=== PATIENT | female | born 1950 | race Caucasian/White ===

== ENCOUNTER 2018-07-02 11:25 | Observation (INO) ==
[~2018-07-02 11:25] MED LIST: CEFAZOLIN 1000MG 1,000 MG/7.5 ML SYR IV SCH; LR 15ML/HR IV SCH
[2018-07-02] MEDS ORDERED: CEFAZOLIN 3000MG 65 ML IV SCH (12:00)
[2018-07-02 12:18] LABS: INR 1.6 (0.9-1.1); Prothrombin Time 15.9 Seconds (9.0-12.0)
--- NOTE | 2018-07-02 13:12 | History & Physical Bridge Note ---
Date of Service July 02, 2018 History & Physical Bridge Note I have examined the patient, reviewed the History & Physical and in the interval since the performance of the History & Physical I have noted the following changes of clinical significance: no changes noted
--- NOTE | 2018-07-02 13:12 | Pre Anesthesia Assessment ---
Date of Service July 02, 2018 Pre Sedation Assessment Vital Signs Temp Pulse Resp BP Pulse Ox 07/02/18 11:59 36.6 C 59 L 20 175/76 H 94 07/02/18 11:45 36.6 C 59 L 20 175/76 H 94 Cardiovascular + bradycardic Respiratory normal respiratory effort, lungs clear to auscultation Pre-Sedation Airway Assessment Smoking Status: Never smoker Hx Sleep Apnea: No Hx Difficult Intubation: No Short, Thick Neck: No Thyromental Distance: > or= 3.5 Finger Breadths Oral Cavity: + Dentures Mallampati Class: III ASA: ASA3 NPO Status Date of Last Intake of Fluids: 07/01/18 Date of Last Intake of Solid Food: 07/01/18 Procedure Planning Contraindications for Sedation: none Current Medications Reviewed: Yes Notes The planned sedation has been discussed with the patient. Informed Consent was obtained. I have identified the patient, determined the appropriateness of sedation and have assessed the patient immediately prior to the procedure. All medicine(s) and interventions are by my order.
[2018-07-02] MEDS ORDERED: MIDAZOLAM HCL 5 MG/ML 1 ML VIAL ONE (13:48)
[2018-07-02] MEDS ORDERED: fentaNYL citrate 100 MCG/2 ML VIAL ONE ×2 (13:48→15:09)
[2018-07-02] MEDS ORDERED: BUPIVACAINE 0.25% 30 ML VIAL ONE (14:15)
[2018-07-02] MEDS ORDERED: LIDOCAINE HCL 1% 20 ML VIAL ONE (14:15)
[2018-07-02] MEDS ORDERED: MIDAZOLAM HCL 1 MG/ML 2ML VIAL ONE (15:18)
--- NOTE | 2018-07-02 15:42 | Post Anesthesia Assessment ---
Date of Service July 02, 2018 Post Sedation Assessment Vital Signs Temp Pulse Resp BP Pulse Ox 07/02/18 11:59 36.6 C 59 L 20 175/76 H 94 07/02/18 11:45 36.6 C 59 L 20 175/76 H 94 Recovery Score Activity: Moves 4 extremities Respiration: Deep Breath/Cough Circulation: +/-20% PreAnes Value Consciousness: Fully Awake Oxygen Saturation: > 92% On Room Air Discharge Sedation Level of Care: Fast Track Phase II Post Sedation Plan On clinical assessment, the patient appears to have tolerated the sedation without complications. Patient is recovering as anticipated. Patient will continue to be monitored by nursing and may be discharged when sedation discharge criteria are met per below protocol. Upon Completions of procedure and additional 15 minutes continue every 5 minute vital signs and the P.A.R. score; then discharge to a Phase I or Fast Track to Phase II per the following guidelines: * Discharge Patient to appropriate Phase II area if PAR is 8 or greater or return to pre- procedure baseline. The post - procedure orders will be as directed. * If PAR score is less than 8 or not return to pre-procedure baseline then patient will follow Phase I monitoring till PAR is reached for Phase II. The Phase I may be done in procedure room or may call to secure a Phase I area. * If naloxone or flumazenil are used for reversal, hold in Phase I for continued monitoring from when last reversal dose was given for a minimum of 60 minutes or longer pending the nurse and/or physician discretion of patient condition before discharge to Phase II. Please call the Sedation Physician to re-evaluate and complete post-note for discharge to Phase II area. Do NOT discharge from procedure sedation or Phase 1 until post- sedation evaluation note is complete by procedure /sedation MD Sedation Discharge Instructions to be given to the patient at discharge to home.
--- NOTE | 2018-07-02 15:43 | Operative Report ---
Post Operative Report Pre & Post Diagnosis tbs Operation Date: 07/02/18 13:00 <No data on this case meets the specified criteria> Procedure Operation Date: 07/02/18 13:00 Actual Procedures p Pacer with A/V Leads (Dual) - Chloe Frias DO Surgeon Chloe Frias, DO Pad Hand none Estimated Blood Loss 25 Findings Consistent with Post-Op Diagnosis Specimens none Description of Procedure see official report I attest to the content of the Intraoperative Record and any orders documented therein. Any exceptions are noted below.
[2018-07-02] MEDS ORDERED: ACETAMINOPHEN 325 MG TAB PO PRN (15:47)
[2018-07-02] MEDS ORDERED: FLUTICASONE PROPIONATE NA SPR 16 GM BTL PRN (15:48)
[2018-07-02] MEDS ORDERED: LORazepam 0.5 MG TAB SL PRN (15:48)
[2018-07-02] MEDS ORDERED: WARFARIN SOD 5 MG TAB PO SCH (16:00)
[2018-07-02] MEDS: OXYCODONE/ACETAMINOPHEN 5mg/325mg TAB PO PRN (17:22)
[2018-07-02] MEDS: DOFETILIDE 125 MCG CAPSULE PO SCH (20:52)
[2018-07-03] MEDS: OXYCODONE/ACETAMINOPHEN 5mg/325mg TAB PO PRN ×2 (02:32→11:58)
[2018-07-03] MEDS: DOFETILIDE 125 MCG CAPSULE PO SCH (08:48)
[2018-07-03] MEDS ORDERED: AMLODIPINE BESYLATE 5 MG TAB PO SCH (09:00)
[2018-07-03] MEDS ORDERED: LOSARTAN POTASSIUM 50 MG TAB PO SCH (09:00)
[2018-07-03] MEDS ORDERED: ESCITALOPRAM OXALATE 10 MG TAB PO SCH (09:00)
[2018-07-03] MEDS ORDERED: CHOLECALCIFEROL 1,000 UNITS TAB PO SCH (09:00)
[2018-07-03] MEDS ORDERED: ASPIRIN 81 MG ECTAB PO SCH (09:00)
[2018-07-03] MEDS ORDERED: LOVASTATIN 20 MG TAB PO SCH (09:00)
[2018-07-03] MEDS ORDERED: PANTOprazole 40 MG TAB PO SCH (09:00)
[2018-07-03] MEDS ORDERED: CYANOCOBALAMIN 500 MCG TABLET (VITAMIN B-12) PO SCH (09:00)
--- NOTE | 2018-07-03 09:11 | XRay Report ---
XR chest 2V routine HISTORY: Left-sided pacemaker. post implant COMPARISON: Chest 06/24/2018. FINDINGS: Interval placement left-sided dual-chamber pacemaker. The leads appear intact. No pneumotho rax. No pleural effusions. The heart is normal in size. The lungs are clear. IMPRESSION: Status post left-sided pacemaker. No pneumothorax. Electronically signed by: Reynaldo Allison M.D. 07/03/2018 9:10 AM
--- NOTE | 2018-07-03 10:07 | Cardiology Progress Note ---
Date of Service July 03, 2018 Assessment & Plan (1) Tachy-jess syndrome: Patient status post dual-chamber pacemaker insertion with normal pacemaker function on check this morning Chest x-ray no pneumothorax Patient tolerated procedure well Anticipate discharge this morning with scheduled follow-up arranged Subjective Patient seen and examined, chart medications telemetry reviewed. Pacemaker functioning appropriately. No complaints at surgical incision. No fevers or chills. Ambulatory in room and hallway Physical Exam Constitutional: WD/WN, vitals as above Neck: trachea midline, no thyromegaly Respiratory: normal respiratory effort, lungs clear to auscultation Cardiovascular: Rate/Rhythm: regular rate Extremities: no edema Chest (Breasts): Chest: + pacemaker (Site with minimal ecchymosis no hematoma incision intact) Gastrointestinal (Abdomen): normal bowel sounds, soft, nontender, no hepatosplenomegaly Results & Data Vital Signs (Past 12 Hours) Vital Signs Temp Pulse Pulse Resp BP Pulse Ox 07/03/18 07:56 36.5 C 64 18 128/77 93 07/03/18 04:16 36.7 C 61 20 110/64 96 07/03/18 00:36 36.3 C L 60 16 118/73 95 07/02/18 22:21 62 17 94 Laboratory Results Laboratory Results - last 24 hr 07/02/18 07/02/18 11:42 11:45 PT 15.9 H INR 1.6 H Hepatitis C Ab Screen Neg
[2018-07-04] MEDS ORDERED: WARFARIN SOD 2.5 MG TAB PO SCH (16:00)
--- NOTE | 2018-07-13 21:58 | Operative Report ---
DATE OF OPERATION: 07/02/2018 PREOPERATIVE DIAGNOSIS: Tachybrady syndrome. POSTOPERATIVE DIAGNOSIS: Tachybrady syndrome. PROCEDURE: Dual chamber rate response to permanent pacemaker under fluoroscopic guidance. SURGEON: Chloe Frias DO. PIG BREEDER: None. ANESTHESIA: Monitored conscious sedation administered under my supervision by Jeaneth Cruz. Start time 14:13, end time 15:37. A total of 6 mg of Versed and 150 mcg of fentanyl. INTRAVENOUS FLUIDS: 94 mL. ANTIBIOTICS: 3 grams of Ancef. BLOOD LOSS: Less than 20 mL. URINE OUTPUT: Not applicable. SPECIMENS: None. FINDINGS: See below. DRAINS: None. COMPLICATIONS: None. CONDITION: Stable. INDICATIONS: This is a 67-year-old female with a past medical history for stress-induced cardiomyopathy actually reverse Takotsubo in 10/2017 after tooth extraction for repeat echo in 02/2018. The EF had normalized, paroxysmal atrial fibrillation diagnosed in 12/2014, on anticoagulation and Tikosyn. Acute PE on Coumadin, hypertension, hyperlipidemia, statin intolerance, mild nonobstructive coronary disease by catheterization in 02/2014, chronic diastolic heart failure, [place] Heart Association class II, depression, obesity, obstructive sleep apnea on CPAP, gastroesophageal reflux disease, migraines and anxiety. Due to the symptomatic tachybrady syndrome, she was recommended a dual chamber pacemaker. CONSENT: Consent was obtained prior to the patient going into Electrophysiology lab. The patient was informed of the risks, benefits, and alternatives of the procedure. Risks include but not limited to sudden cardiac , cardiac arrhythmia, cerebrovascular accident, myocardial infarction, injury to the blood vessels, chamber of the heart, lung, bleeding, and infection. The patient understood these risks and agreed to the procedure as planned. Informed consent was obtained. DESCRIPTION OF THE PROCEDURE: The patient was brought into Electrophysiology lab in fasting state. She was connected to continuous cardiac cath technician. A timeout was performed to ensure patient's identity and procedure correctly. The patient was prepped and draped over the left infraclavicular space in normal surgical standard fashion. Monitored conscious sedation was given throughout the procedure for patient's comfort level. [place] precautions were maintained throughout the procedure. A 10 mL of 1% lidocaine and bupivacaine were given in the left deltopectoral groove. Incision was made in the left deltopectoral groove. Blunt dissection performed down to identify cephalic vein. Cephalic vein was identified and isolated using 0 silk ties. The vein was nicked with 11 blade and a guidewire was inserted without any resistance. An 8-Irish sheath was inserted over the guidewire without any resistance. Then, the dilator was removed and a second guidewire was inserted down through the sheath to allow for retained venous access. The sheath was removed, flushed, dilator, reinserted over it and then it was reinserted along the guidewire. Guidewire and dilator removed and the right ventricular lead was advanced down into the right ventricle and positioned into right ventricular apex under fluoroscopic guidance. I did have to reposition it a few times due to getting better, impedance and sensing and thresholds. Ultimately, we had good impedance and thresholds and there was no diaphragmatic stimulation with high output pacing. So the 8-Irish sheath was peeled away and lead was fixated to pectoralis muscle using 0 silk suture. A second 8-Irish sheath was inserted over the retained guidewire without any resistance. The guidewire and dilator removed. The right atrial lead was then advanced into right atrium and positioned into right atrial appendage under fluoroscopic guidance. There was adequate pacing and sensing thresholds and no diaphragmatic stimulation with high output pacing. The 8-Irish sheath was peeled away and lead was fixated to pectoralis muscle using 0 silk suture. Due to backbleeding, a pursestring using a 2-[address] needle was placed around the vein to stop that and using blunt dissection over the pectoralis muscle within the pectoralis fascia, a pacemaker pocket was created then the pocket was flushed with copious amounts of bacitracin saline wash and inspected for hemostasis. The pulse generator was then attached to the leads, making sure that the pins were in appropriate position, passed set screw and set screws were tightened. The pulse generator was then placed in the pocket, making sure that the leads were lying flat beneath the device. A stay stitch using 0 silk suture was used to secure the device to the pectoralis muscle. An Flako stat was placed in the pocket as patient is going back on anticoagulation with Coumadin. The incision was then closed in a 3-layer fashion with 2-0 Vicryl interrupted suture followed by 3-0 Vicryl interrupted suture followed by a 4-0 Monocryl running stitch and Dermabond was applied, followed by a pressure dressing. EQUIPMENT: 1. Pulse generator is a Medtronic Ebony XT DR VILLEGAS KimberleeToney [id number], serial numver [id number]. 2. Right atrial lead Medtronic 5076-52 cm, serial number [id number]. 3. Right ventricular lead, Medtronic 5076-58 cm, serial number [id number]. INTRAOPERATIVE TESTIN. Right atrial lead: P waves 2.1 millivolts, impedance 594 ohms, threshold 1.2 volts at 1.3 milliamps. 2. Right ventricular lead: R-wave 6.9 millivolts, impedance 868 ohms, threshold 0.3 volts at 0.3 milliamps. FINAL MEASUREMENTS THROUGH THE DEVICE: 1. Right atrial lead: P waves 2 millivolts, impedance 475 ohms, threshold 0.75 volts at 0.4 milliseconds. 2. Right ventricular lead: R-wave 9.9 millivolts, impedance 703 ohms, threshold 0.5 volts at 0.4 milliseconds. FINAL PARAMETERS: MVP 60/130. Right atrial amplitude 3.5 volts, pulse width 0.4 milliseconds, sensitivity 0.3 millivolts. Right ventricular amplitude 3.5 volts, pulse width 0.4 milliseconds, sensitivity 0.9 millivolts. IMPRESSION: Successful implantation of a dual chamber rate responsive to permanent pacemaker under fluoroscopic guidance secondary to tachybrady syndrome. PLAN: Monitor patient overnight, 12-lead ECG, chest x-ray. She can continue her home medications. She is not allowed to lift the left elbow over left shoulder for 1 month. She cannot lift more than 10 pounds with the left arm for 2 weeks. She can remove the pressure dressing the following day and she should follow up in our [facility] on 07/09/2018 for device and wound check. I attest to the content of the Intraoperative Record and any orders documented therein. Any exception s are noted below.
--- NOTE | 2018-07-16 08:16 | Discharge Summary ---
Date of Service 07/02/2018-07/03/2108 Admission HPI pt with near sycnope admitted for elective pacemaker Admission Exam Per Admitting Provider aaox3, NAD NC/AT, EOMI Supple No JVD bradycardia S1/S2, No murmur CTA b/l no w/r/r soft nt/nd no LE edema b/l skin intact no focal deficits Principal Diagnosis Principal Diagnosis TBS s/p dual chamber ppm Discharge Exam aaox3, NAD NC/AT, EOMI Supple No JVD Nrl S1/S2, No murmur CTA b/l no w/r/r soft nt/nd no LE edema b/l skin intact no focal deficits left pectoral incision intact, no hematoma mild ecchymosis ENMT Mallampati Class: III Respiratory normal respiratory effort, lungs clear to auscultation Discharge Data Allergies Allergy/AdvReac Type Severity Reaction Status Date / Time latex Allergy Intermediate RASH Verified 07/02/18 11:43 lisinopril Allergy Intermediate Cough Verified 07/02/18 11:43 celecoxib Allergy Mild Hives Verified 07/02/18 11:43 Procedures Performed PPM Interrogation 07/03/2018: normal function ECG: AP Operation Date: 07/02/18 13:00 Actual Procedures p Pacer with A/V Leads (Dual) - Chloe Frias DO Ordered Studies CXR: No PTX leads in position 07/02/18 07:00 EP Lab Images for PACS ONCE Hospital Course (1) Tachy-stevie syndrome: Patient status post dual-chamber pacemaker insertion with normal pacemaker function on check this morning Chest x-ray no pneumothorax Patient tolerated procedure well Anticipate discharge this morning with scheduled follow-up arranged Total Time Total Time Spent Total Time Spent (In Minutes): 30 Total Time Includes: Examination of the Patient, Discharge Planning, Medication Reconciliation and Other Discharge Plan Discharge Items Patient Disposition: Home - Self-Care Reason For Visit: Trachy Stevie Syndrome Discharge Diagnosis: tbs s/p pacemaker Condition: Good Discharge Goals: Improve disease control Activity: As commented below Activity Comment: do not lift the left elbow over the left shoulder for 1 month Lifting: No more than 10 pounds Lifting Comment: do not lift more than 10 pounds with the left arm for 2 weeks Bathing: Keep incision dry Bathing Comment: shower Tuesday 07/04 let water run over the incision do not scrub it Sexual Activity: After two weeks Driving/Machine Use: Resume 1 day after discharge Non-emergency contact: Operater Call non-emergency contact if: you have any medication questions Follow-up/Referrals: Irish Richard DO [Primary Care Provider] - Diet: Heart Healthy Addtl Provider Instructions: Device and wound check next sunday 07/09 if you notice any swelling call my office immediately you can remove the pressure dressing sat 07/03 Prescriptions: Continued aspirin [Aspirin Low Dose] 81 mg Tablet,Delayed Release (Dr/Ec) 81 mg PO DAILY RF: 0 acetaminophen 325 mg Tablet 2 tab PO Q6H PRN (Reason: Pain) RF: 0 cholecalciferol (vitamin D3) 1,000 unit Capsule 1,000 units PO DAILY RF: 0 dofetilide 250 mcg Capsule 250 mcg PO Q12H RF: 0 cyanocobalamin (vitamin B-12) 1,000 mcg Tablet, Sublingual 500 mcg SUBLINGUAL DAILY RF: 0 lovastatin 20 mg Tablet 20 mg PO DAILY RF: 0 losartan 100 mg Tablet 100 mg PO DAILY RF: 0 fluticasone propionate 50 mcg/actuation [place],Suspension 2 spray INTRANASAL DAILY PRN (Reason: Congestion) RF: 0 warfarin 5 mg Tablet 5 mg PO [id number] RF: 0 warfarin 5 mg Tablet See Rx Instructions .ROUTE .COMPLEX RF: 0 omeprazole 20 mg Capsule,Delayed Release(Dr/Ec) 20 mg PO DAILY RF: 0 amlodipine 2.5 mg Tablet 2.5 mg PO DAILY RF: 0 escitalopram oxalate [Lexapro] 5 mg Tablet 5 mg PO DAILY RF: 0 lorazepam 0.5 mg Tablet 0.5 mg SUBLINGUAL BID PRN (Reason: Anxiety) RF: 0 Stand-Alone Forms: [facility] Discharge Orders: Discharge Order (Routine); Ordered 07/03/18 Ordered By: Jermain Lange Admission Data Admit Date/Time: 07/02/18 15:07 Attending Provider: Chloe Frias Admit Provider: Chloe Frias Primary Care Provider: Irish Richard Service: Telemetry Other Interventions: Discharge Summary Assessment (RN) Last Done: 07/03/18 10:43 DC Date/Time DO NOT enter until pt leaves facility: 07/03/18 12:25
== END 2018-07-03 12:25 | disposition home or self-care (01) ==
LOC: 2S 11:25 → ASU 11:25

== ENCOUNTER 2021-05-19 19:31 | Inpatient (IN) ==
[2021-05-19] MEDS ORDERED: ALBUT/IPRATROP 3MG/0.5MG NEB 3 ML VIAL NEB STA (20:05)
[2021-05-19 20:51] LABS: Basophils # (auto) 0.01 K/uL (0-0.2); Basophils % (auto) 0.1 %; Eosinophils # (auto) 0.02 K/uL (0-0.5); Eosinophils % (auto) 0.3 %; Hematocrit (blood only) 35.6 % (37-47); Hemoglobin 11.8 g/dL (12.0-16.0); Immature Granulocytes # (auto) 0.02 K/uL (0.00-0.02); Immature Granulocytes % (auto) 0.3 %; Lymphocytes # (auto) 1.61 K/uL (1.2-3.4); Lymphocytes % (auto) 21.8 %; Mean Corpuscular Hemoglobin 29.4 pg (25-34); Mean Corpuscular Hgb Conc 33.1 g/dL (32-36); Mean Corpuscular Volume 88.6 fL (80-100); Mean Platelet Volume 9.2 fL (7.4-10.4); Monocytes # (auto) 0.55 K/uL (0.11-0.59); Monocytes % (auto) 7.4 %; Neutrophils # (auto) 5.19 K/uL (1.4-6.5); Neutrophils % (auto) 70.1 %; Platelet Count 259 K/uL (130-400); RDW Coefficient of Variation 15.3 % (11.5-14.5); RDW Standard Deviation 49.9 fL (36.4-46.3); Red Blood Count 4.02 M/uL (4.2-5.4)
[2021-05-19] MEDS ORDERED: ACETAMINOPHEN 500 MG TAB PO STA (20:52)
[2021-05-19] MEDS ORDERED: ONDANSETRON INJ 2 MG/ML 2 ML VIAL IV STA (20:52)
[2021-05-19 21:13] LABS: Alanine Aminotransferase 11 U/L (7-52); Albumin Globulin Ratio 1.1 (0.9-2); Albumin Level 3.6 gm/dl (3.4-5.0); Alkaline Phosphatase 120 U/L (34-104); Anion Gap 11 (3-11); Aspartate Aminotransferase 13 U/L (13-39); BUN Creatinine Ratio 10.4 (10-20); Bilirubin,Total 0.6 mg/dl (0.2-1.0); Blood Urea Nitrogen 8 mg/dl (6-23); Calcium 8.3 mg/dl (8.5-10.1); Carbon Dioxide 26 mmol/L (21-32); Chloride 104 mmol/L (98-107); Est GFR (African American) 90.7 ml/min; Est GFR (Non-African American) 78.2 ml/min; Globulin 3.4 gm/dl (2.5-4.0); Glucose 102 mg/dl (70-99(Fasting)); Potassium 3.1 mmol/L (3.5-5.1); Sodium 141 mmol/L (136-145)
[2021-05-19 21:14] LABS: Troponin I < 0.03 ng/ml (0-0.04)
[2021-05-19 21:21] LABS: Adenovirus PCR Not Detected (NotDetected); Bordetella parapertussis PCR Not Detected (NotDetected); Bordetella pertussis PCR Not Detected (NotDetected); Chlamydia pneumoniae PCR Not Detected (NotDetected); Coronavirus 229E PCR Not Detected (NotDetected); Coronavirus CoV-2 (COVID19)PCR Not Detected (NotDetected); Coronavirus HKU1 PCR Not Detected (NotDetected); Coronavirus NL63 PCR Not Detected (NotDetected); Coronavirus OC43PCR Not Detected (NotDetected); Human Metapneumovirus PCR Not Detected (NotDetected); Influenza A PCR Not Detected (NotDetected); Influenza B PCR Not Detected (NotDetected); Mycoplasma pneumoniae PCR Not Detected (NotDetected); Parainfluenza Virus 1 PCR Not Detected (NotDetected); Parainfluenza Virus 2 PCR Not Detected (NotDetected); Parainfluenza Virus 3 PCR Not Detected (NotDetected); Parainfluenza Virus 4 PCR Not Detected (NotDetected); Respiratory Syncytial VirusPCR Not Detected (NotDetected); Rhinovirus/Enterovirus PCR Not Detected (NotDetected)
[2021-05-19] MEDS ORDERED: DOXYCYCLINE HYCLATE 100 MG in DEXTROSE 5% 100 ML IV STA (22:17)
[2021-05-19] MEDS ORDERED: cefTRIAXone SODIUM 2,000 MG/70 ML BAG IV STA (22:17)
[2021-05-19] MEDS ORDERED: POTASSIUM CHLORIDE CRTAB 20 MEQ TABCR PO STA (22:38)
--- NOTE | 2021-05-19 23:10 | Emergency Department Note ---
Impression & Plan Flu-like symptoms, Community acquired pneumonia, Nausea vomiting and diarrhea, Elevated brain natriuretic peptide (BNP) level, Acute hypokalemia, Otitis media ED Provider Note INFORMANT: Patient ED PROVIDER(S): Jeff Martinez MD CHIEF COMPLAINT: Flulike symptoms PLAN: Disposition: Admitted Condition: Good Outpatient prescription management: none Referral: None MEDICAL DECISION MAKING: Patient presented because of flulike symptoms. Covid testing by [facility] was done and was negative. The patient's chest x-ray read some concerns about some mild vascular congestion and a right-sided infiltrate. This was where she was wheezing. She does have a significant cough. She has bilateral otitis media. Her CBC and chemistry panel were otherwise unremarkable. Troponin was negative. The patient was given IV Rocephin and doxycycline. She does not feel like she is well enough to take care of herself at home as she lives alone. She is requesting admission. I did discuss the possibility of evaluation by the [facility] Hospitalist service. Patient was in agreement. Dr. Elias, [facility] hospitalist service was consulted. He evaluated patient in the ER for further management. Triage Nursing notes reviewed and agree them. Vital Signs: reviewed and remarkable for mild hypertension Differential diagnosis: Viral syndrome, otitis, pharyngitis, pneumonia, influenza, meningitis, urinary tract infection, sepsis, bacteremia, as well as other pathologies. Diagnostics interpreted by me: ECG: Atrial paced rhythm at [address] and T wave abnormality. No ST elevation. Prolonged QT. Normal axis. Cardiac Monitoring: Imaging studies: Chest x-ray as above. HPI: The patient is a 70 year old female who presents to the Emergency Room with complaints of cough and flulike symptoms. This started a week and is worsening. The patient also notes the following associated symptoms, generalized weakness, mild headache, productive cough, nausea, vomiting, diarrhea, chest discomfort with coughing, and bilateral earaches. The patient has has found no relieving factors. Patient was taken Tylenol. Current pain is rated as 8/10. Patient notes she is not doing well at home. She lives alone. She does not feel that she is able to take care of herself tonight. Family had URI symptoms. She reports her tested negative for Covid. Pt denies LOC, diaphoresis, visual emily nges, neck pain, breathing difficulties, abdominal pain, back pain, melena, hematochezia, urinary symptoms, numbness, lymphadenopathy, rash, or other complaints. ROS: See above HPI for pertinent positives & negatives. A total of 10 systems reviewed and were otherwise negative. PAST MEDICAL HISTORY:See Below , hypertension, paroxysmal A. fib, cardiomyopathy PAST SURGICAL HISTORY:See Below, pacemaker FAMILY HISTORY:See Below SOCIAL HISTORY:See Below, lives alone HOME MEDICATIONS:See Below ALLERGIES:See Below VITALS:See Below PHYSICAL EXAMINATION: GENERAL: Awake, alert, mildly ill-appearing, in no distress HENT: Normocephalic, atraumatic. Oropharynx unremarkable. TMs are erythematous bilaterally concerning for developing otitis media. EYES: Normal conjunctiva. Sclera non-icteric. NECK: Inspection normal. Non-tender. Supple. No nuchal rigidity. FROM. No masses. RESPIRATORY: Scant right-sided wheezes. No rales. Normal respiratory effort. CARDIAC: Normal rate. Normal rhythm. No murmurs. No rubs. Extremities warm and well perfused. Pulses equal. No JVD. GI: Soft, non-distended. No tenderness to palpation. No rebound or guarding. No masses. RECTAL: Deferred. MUSCULOSKELETAL: Atraumatic. Chest examination reveals no tenderness. The back is symmetrical on inspection without obvious abnormality. There is no CVA tenderness to palpation. No joint edema. LOWER EXTREMITIES: Calves are equal size bilaterally and non-tender. Trace ed cheng. No discoloration. NEURO: Normal sensorium. No sensory or motor deficits noted. SKIN: No rash or jaundice noted. Jeff Martinez MD Past Med/Surg History Medical History Atrial fibrillation Paroxysmal atrial fibrillation, on rhythm control strategy with dofetilide, Coumadin (entered by Dr Borges 10/22/17) CAD (coronary artery disease) Hx cardiac cath 2014: coronary arteries have diffuse minor irregularities Depression GERD (gastroesophageal reflux disease) H/O cholecystitis H/O cholecystitis HLD (hyperlipidemia) HTN (hypertension) Hx pulmonary embolism 2014 NSTEMI (non-ST elevated myocardial infarction) Obesity JALEN (obstructive sleep apnea) Paroxysmal atrial fibrillation Stress-induced cardiomyopathy Takotsubo cardiomyopathy Surgical History H/O carpal tunnel repair H/O carpal tunnel repair H/O wisdom tooth extraction H/O: hysterectomy H/O: hysterectomy Hx of cardiac catheterization Hx of cardiac catheterization Angiographically normal coronary arteries, 10/22/17, [facility]. History, echocardiogram, cardiac catheterization data consistent with atypical presentation of stress-induced cardiomyopathy with normal apical wall motion, and hypokinesis to akinesis of the basal left ventricular myocardial segments Family History Father , in 60's of myocardial infarction Myocardial infarction, Onset Age: 62 Brother Myocardial infarction, Onset Age: 68 Other Diabetes Hypertension Social History Smoking Status: Never smoker Second Hand Exposure: No; Hx Alcohol Use: No Hx Substance Use: No Preferred Language: Georgian Communication Ability: Effective Visual Impairment: Limited Hearing Ability: Normal 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 Beliefs That Will Affect Care: None Current Living Situation: Alone Feels Safe at Home: Yes Assistive Devices: CPAP Allergies Allergies Allergy/AdvReac Type Severity Reaction Status Date / Time celecoxib Allergy Intermediate Hives Verified 05/19/21 20:34 latex Allergy Intermediate RASH Verified 05/19/21 20:34 lisinopril Allergy Intermediate Cough Verified 05/19/21 20:34 Home Meds Home Medications Medication Instructions Recorded Confirmed acetaminophen 325 mg tablet 2 tab PO Q6H PRN 10/22/17 05/19/21 aspirin 81 mg tablet,delayed 81 mg PO QAM 10/22/17 05/19/21 release (Aspirin Low Dose) cholecalciferol (vitamin D3) 25 1,000 units PO QAM 10/22/17 05/19/21 mcg (1,000 unit) capsule cyanocobalamin (vitamin B-12) 500 mcg SUBLINGUAL QAM 10/22/17 05/19/21 1,000 mcg sublingual tablet losartan 100 mg tablet 100 mg PO QAM 10/22/17 05/19/21 warfarin 5 mg tablet See Rx Instructions .ROUTE .COMPLEX 10/22/17 05/19/21 amlodipine 2.5 mg tablet 2.5 mg PO QAM 07/02/18 05/19/21 amiodarone 200 mg tablet 200 mg PO QAM 12/02/19 05/19/21 atorvastatin 40 mg tablet (Lipitor) 40 mg PO HS 12/02/19 05/19/21 metoprolol succinate 25 mg 25 mg PO QAM 12/02/19 05/19/21 tablet,extended release 24 hr escitalopram oxalate 20 mg tablet 20 mg PO QPM 07/12/20 05/19/21 famotidine 20 mg tablet 20 mg PO BID 07/12/20 05/19/21 fluticasone propionate 50 2 spray INTRANASAL DAILY PRN 05/19/21 05/19/21 mcg/actuation nasal spray,suspension levothyroxine 50 mcg tablet 50 mcg PO DAILYBB 05/19/21 05/19/21 omeprazole 20 mg capsule,delayed 20 mg PO AMHS 05/19/21 05/19/21 release Results & Data (ED) Vital Signs Vital Signs - 24 hr 05/19/21 19:47 05/19/21 20:35 05/19/21 20:43 Temperature 36.7 C Temperature Source Oral Pulse Rate 70 65 64 Pulse Rate [Apical] Pulse Rate from SpO2 Sensor 66 Respiratory Rate 16 21 18 Respiratory Effort / Characteristics Respiratory Depth Normal Blood Pressure 175/86 H 162/74 H Blood Pressure Mean 115 103 Blood Pressure Position Sitting Pulse Oximetry 95 94 94 Oxygen Delivery Method Room Air Room Air Room Air Sepsis Recent Fever Within 48 Hours No Sepsis New/Unexplained Change in Mental Status N/A Sepsis Action Taken by Nursing No Action Required 05/19/21 21:00 05/19/21 21:32 05/19/21 22:00 Temperature Temperature Source Pulse Rate 63 67 Pulse Rate [Apical] 63 Pulse Rate from SpO2 Sensor 63 67 Respiratory Rate 16 16 20 Respiratory Effort / Characteristics Non-Labored Spontaneous Respiratory Depth Blood Pressure 167/81 H 151/83 H Blood Pressure Mean 109 105 Blood Pressure Position Pulse Oximetry 94 94 92 Oxygen Delivery Method Room Air Room Air Sepsis Recent Fever Within 48 Hours Sepsis New/Unexplained Change in Mental Status Sepsis Action Taken by Nursing 05/19/21 23:00 05/19/21 23:01 Temperature Temperature Source Pulse Rate 61 Pulse Rate [Apical] Pulse Rate from SpO2 Sensor 63 Respiratory Rate 16 Respiratory Effort / Characteristics Respiratory Depth Blood Pressure 150/82 H 150/52 H Blood Pressure Mean 104 84 Blood Pressure Position Pulse Oximetry 93 Oxygen Delivery Method Room Air Sepsis Recent Fever Within 48 Hours Sepsis New/Unexplained Change in Mental Status Sepsis Action Taken by Nursing Laboratory Data Result diagrams: 05/19/21 20:35 05/19/21 20:35 Lab Results 05/19/21 05/19/21 05/19/21 Range/Units 20:23 20:35 20:35 WBC 7.40 (4.8-10.8) K/uL RBC 4.02 L (4.2-5.4) M/uL Hgb 11.8 L (12.0-16.0) g/dL Hct 35.6 L (37-47) % MCV 88.6 (80-100) fL MCH 29.4 (25-34) pg MCHC 33.1 (32-36) g/dL RDW Std Deviation 49.9 H (36.4-46.3) fL RDW Coeff of Artemio 15.3 H (11.5-14.5) % Plt Count 259 (130-400) K/uL MPV 9.2 (7.4-10.4) fL Immature Gran % (Auto) 0.3 % Neut % (Auto) 70.1 % Lymph % (Auto) 21.8 % [place] % (Auto) 7.4 % Eos % (Auto) 0.3 % Baso % (Auto) 0.1 % Neut # (Auto) 5.19 (1.4-6.5) K/uL Lymph # (Auto) 1.61 (1.2-3.4) K/uL [place] # (Auto) 0.55 (0.11-0.59) K/uL Eos # (Auto) 0.02 (0-0.5) K/uL Baso # (Auto) 0.01 (0-0.2) K/uL Immature Gran # (Auto) 0.02 (0.00-0.02) K/uL Sodium 141 (136-145) mmol/L Potassium 3.1 L (3.5-5.1) mmol/L Chloride 104 (98-107) mmol/L Carbon Dioxide 26 (21-32) mmol/L Anion Gap 11 (3-11) BUN 8 (6-23) mg/dl Creatinine 0.77 (0.6-1.2) mg/dl Est Cr Clr Drug Dosing 97.0 ml/min Est GFR ( Amer) 90.7 ml/min Est GFR (Non-Af Amer) 78.2 ml/min BUN/Creatinine Ratio 10.4 (10-20) Glucose 102 H (70-99(Fasting)) mg/dl Calcium 8.3 L (8.5-10.1) mg/dl Total Bilirubin 0.6 (0.2-1.0) mg/dl AST 13 (13-39) U/L ALT 11 (7-52) U/L Alkaline Phosphatase 120 H (34-104) U/L Troponin I < 0.03 (0-0.04) ng/ml B-Natriuretic Peptide (0-100) pg/ml Total Protein 7.0 (6.0-8.3) gm/dl Albumin 3.6 (3.4-5.0) gm/dl Globulin 3.4 (2.5-4.0) gm/dl Albumin/Globulin Ratio 1.1 (0.9-2) Adenovirus (PCR) Not Detected (NotDetected) B. pertussis DNA (PCR) Not Detected (NotDetected) B.parapertussis DNA PCR Not Detected (NotDetected) C. pneumoniae DNA (PCR) Not Detected (NotDetected) Coronavirus OC43 (PCR) Not Detected (NotDetected) Coronavirus HKU1 (PCR) Not Detected (NotDetected) Coronavirus 229E (PCR) Not Detected (NotDetected) SARS-CoV-2 (PCR) Not Detected (NotDetected) Coronavirus NL63 (PCR) Not Detected (NotDetected) Human Metapneumovir PCR Not Detected (NotDetected) Influenza Type A (PCR) Not Detected (NotDetected) Influenza Type B (PCR) Not Detected (NotDetected) M. pneumoniae (PCR) Not Detected (NotDetected) Parainfluenza 1 (PCR) Not Detected (NotDetected) Parainfluenza 2 (PCR) Not Detected (NotDetected) Parainfluenza 3 (PCR) Not Detected (NotDetected) Parainfluenza 4 (PCR) Not Detected (NotDetected) RSV (PCR) Not Detected (NotDetected) Entero/Rhino (PCR) Not Detected (NotDetected) 05/19/21 Range/Units 22:11 WBC (4.8-10.8) K/uL RBC (4.2-5.4) M/uL Hgb (12.0-16.0) g/dL Hct (37-47) % MCV (80-100) fL MCH (25-34) pg MCHC (32-36) g/dL RDW Std Deviation (36.4-46.3) fL RDW Coeff of Artemio (11.5-14.5) % Plt Count (130-400) K/uL MPV (7.4-10.4) fL Immature Gran % (Auto) % Neut % (Auto) % Lymph % (Auto) % [place] % (Auto) % Eos % (Auto) % Baso % (Auto) % Neut # (Auto) (1.4-6.5) K/uL Lymph # (Auto) (1.2-3.4) K/uL [place] # (Auto) (0.11-0.59) K/uL Eos # (Auto) (0-0.5) K/uL Baso # (Auto) (0-0.2) K/uL Immature Gran # (Auto) (0.00-0.02) K/uL Sodium (136-145) mmol/L Potassium (3.5-5.1) mmol/L Chloride (98-107) mmol/L Carbon Dioxide (21-32) mmol/L Anion Gap (3-11) BUN (6-23) mg/dl Creatinine (0.6-1.2) mg/dl Est Cr Clr Drug Dosing ml/min Est GFR ( Amer) ml/min Est GFR (Non-Af Amer) ml/min BUN/Creatinine Ratio (10-20) Glucose (70-99(Fasting)) mg/dl Calcium (8.5-10.1) mg/dl Total Bilirubin (0.2-1.0) mg/dl AST (13-39) U/L ALT (7-52) U/L Alkaline Phosphatase (34-104) U/L Troponin I (0-0.04) ng/ml B-Natriuretic Peptide 224 H (0-100) pg/ml Total Protein (6.0-8.3) gm/dl Albumin (3.4-5.0) gm/dl Globulin (2.5-4.0) gm/dl Albumin/Globulin Ratio (0.9-2) Adenovirus (PCR) (NotDetected) B. pertussis DNA (PCR) (NotDetected) B.parapertussis DNA PCR (NotDetected) C. pneumoniae DNA (PCR) (NotDetected) Coronavirus OC43 (PCR) (NotDetected) Coronavirus HKU1 (PCR) (NotDetected) Coronavirus 229E (PCR) (NotDetected) SARS-CoV-2 (PCR) (NotDetected) Coronavirus NL63 (PCR) (NotDetected) Human Metapneumovir PCR (NotDetected) Influenza Type A (PCR) (NotDetected) Influenza Type B (PCR) (NotDetected) M. pneumoniae (PCR) (NotDetected) Parainfluenza 1 (PCR) (NotDetected) Parainfluenza 2 (PCR) (NotDetected) Parainfluenza 3 (PCR) (NotDetected) Parainfluenza 4 (PCR) (NotDetected) RSV (PCR) (NotDetected) Entero/Rhino (PCR) (NotDetected) Administered Medications Doxycycline Hyclate 100 mg/ (Dextrose) 110 mls @ 50 mls/hr IV NOW STA Stop: 05/20/21 00:28 Last Admin: 05/19/21 23:02 Dose: 50 mls/hr Documented by: [id number] Discontinued Medications Acetaminophen (Acetaminophen 500 Mg Tab) 1,000 mg PO NOW STA Stop: 05/19/21 20:53 Last Admin: 05/19/21 21:02 Dose: 1,000 mg Documented by: [id number] Albuterol (Albut/Ipratrop 3mg/0.5mg Neb 3 Ml Vial) 3 ml NEB NOW STA; Protocol Stop: 05/19/21 20:06 Last Admin: 05/19/21 21:32 Dose: 3 ml Documented by: [id number] Ceftriaxone Sodium (Rocephin) 2,000 mg in 70 mls @ 140 mls/hr IV NOW STA Stop: 05/19/21 22:46 Last Infusion: 05/19/21 23:02 Dose: 0 mls/hr Documented by: [id number] Admin: 05/19/21 22:47 Dose: 140 mls/hr Documented by: [id number] Ondansetron HCl (Ondansetron Inj 2 Mg/Ml 2 Ml Vial) 4 mg IV NOW STA Stop: 05/19/21 20:53 Last Admin: 05/19/21 21:02 Dose: 4 mg Documented by: [id number] Potassium Chloride (Potassium Chloride Crtab 20 Meq Tabcr) 20 meq PO NOW STA Stop: 05/19/21 22:39 Last Admin: 05/19/21 22:54 Dose: 20 meq Documented by: [id number] Discharge Plan Visit Data Chief Complaint: Cough Stated Complaint: GENERALIZED ILLNESS ED Provider: Jeff Martinez Discharge Problem: Flu-like symptoms, Community acquired pneumonia, Nausea vomiting and diarrhea, Elevated brain natriuretic peptide (BNP) level, Acute hypokalemia, Otitis media Forms Stand Alone Forms: [facility] Prescriptions Prescriptions: No Action aspirin [Aspirin Low Dose] 81 mg Tablet,Delayed Release (Dr/Ec) 81 mg PO QAM RF: 0 acetaminophen 325 mg Tablet 2 tab PO Q6H PRN (Reason: Pain) RF: 0 cholecalciferol (vitamin D3) 1,000 unit Capsule 1,000 units PO QAM RF: 0 cyanocobalamin (vitamin B-12) 1,000 mcg Tablet, Sublingual 500 mcg SUBLINGUAL QAM RF: 0 losartan 100 mg Tablet 100 mg PO QAM RF: 0 warfarin 5 mg Tablet See Rx Instructions .ROUTE .COMPLEX RF: 0 amlodipine 2.5 mg Tablet 2.5 mg PO QAM RF: 0 atorvastatin [Lipitor] 40 mg Tablet 40 mg PO HS RF: 0 amiodarone 200 mg tablet 200 mg PO QAM RF: 0 metoprolol succinate 25 mg tablet extended release 24 hr 25 mg PO QAM RF: 0 escitalopram oxalate 20 mg tablet 20 mg PO QPM RF: 0 famotidine 20 mg tablet 20 mg PO BID RF: 0 levothyroxine 50 mcg tablet 50 mcg PO DAILYBB RF: 0 fluticasone propionate [Flonase] 50 mcg/actuation [place],Suspension 2 spray INTRANASAL DAILY PRN (Reason: Congestion) RF: 0 omeprazole 20 mg capsule,delayed release(DR/EC) 20 mg PO AMHS RF: 0 Referrals Referrals: Irish Richard DO [Primary Care Provider] -
--- NOTE | 2021-05-20 00:32 | History and Physical Report ---
CHIEF COMPLAINT: Cough. HISTORY OF PRESENT ILLNESS: This is a 70-year-old female with past medical history significant for hyperlipidemia; obstructive sleep apnea, on CPAP; paroxysmal atrial fibrillation; chronic diastolic CHF; chronic kidney disease, stage III; CAD; hypertension; history of stress-induced cardiomyopathy; GERD; vitamin B12 deficiency; morbid obesity; hiatal hernia; lumbosacral radiculopathy; benign positional vertigo; migraines; depression; history of pulmonary embolism; umbilical hernia; presents with cough going on for 1-week with greenish and brownish phlegm. Denies any fevers. She is not getting better and also plugged in ears. Denies any headache. No runny nose, some sore throat, no difficulty swallowing. Denies any chest pain, no shortness of breath, no abdominal pain. Was nauseous, had diarrhea for a couple of days ago that resolved. Has some swelling in the legs. Hemodynamically stable. The patient was feeling weak and tired. ALLERGIES: CELECOXIB, LATEX, LISINOPRIL. PAST MEDICAL HISTORY: As mentioned above. PAST SURGICAL HISTORY: Biopsy of the left breast, cardiac catheterization, bilateral carpal tunnel surgery, colonoscopy, cardiac catheterization, left knee arthroscopy, right knee arthroscopy, cholecystectomy, total abdominal hysterectomy with removal of tubes. MEDICATIONS: The patient is on Tylenol 2 tablets p.o. q. 6 hours p.r.n., amiodarone 200 mg p.o. a.m., amlodipine 2.5 mg p.o. a.m., aspirin 81 mg p.o. a.m., Lipitor 40 mg p.o. at bedtime, vitamin D 1000 units p.o. a.m., vitamin B12 of 500 mcg sublingually a.m., Lexapro 20 mg p.o. a.m., famotidine 20 mg p.o. b.i.d., Flonase 2 sprays intranasal daily p.r.n., levothyroxine 50 mcg p.o. daily, losartan 100 mg p.o. daily, metoprolol succinate 25 mg p.o. a.m., omeprazole 20 mg p.o. b.i.d., warfarin as directed. FAMILY HISTORY: Significant for brother has arthritis, COPD, diabetes, MS, hypertension; mother has stroke, breast cancer, father has heart attack. SOCIAL HISTORY: Single. No smoking, no alcohol, no drug use. REVIEW OF SYSTEMS: As per HPI. Rest of the review of systems is negative. PHYSICAL EXAMINATION: GENERAL: The patient is morbidly obese, not in acute distress. VITAL SIGNS: Temperature 36.7, pulse 61, respiratory rate 16, blood pressure 150/52, oxygen 93% on room air. HEENT: Pupils equal, round and reactive to light. Oral mucosa moist. NECK: No JVD. No masses. CARDIOVASCULAR: S1 and S2 heard. Regular rate and rhythm. No murmur, no gallop. RESPIRATORY SYSTEM: Normal AP diameter. No accessory muscle use. No wheezing, no crackles. ABDOMEN: Soft, bowel sounds present, nontender, no distention. CENTRAL NERVOUS SYSTEM: Cranial nerves II through XII are grossly intact, nonfocal. EXTREMITIES: Bilateral lower extremity pedal edema present, no erythema seen. LABORATORY DATA: WBC 7.4, hemoglobin 11.8, hematocrit 35.6, platelets 259. Sodium 141, potassium 3.1, chloride 104, bicarbonate 26, BUN 8, creatinine 0.7, serum glucose 102, calcium 8.8. Total bilirubin 0.6, AST 13, ALT 11, alkaline phosphatase 120. Troponin I less than 0.03. BNP 224. BioFire negative. IMAGING DATA: Chest x-ray, no acute findings, possible congestion and possible right lower lobe infiltrate. EKG: Atrial paced rhythm at a rate of 65, no significant change was found. ASSESSMENT AND PLAN: 1. This is a 70-year-old female who presents with ongoing cough, feeling weak. 2. Chronic cough, possible bronchitis, possible underlying pneumonia, thick and greenish-yellowish phlegm. ER started empirically on Rocephin and doxycycline, will continue. Follow the response. Robitussin p.r.n. 3. History of diastolic congestive heart failure, Possible acute congestive heart failure. The patient is not on diuretics. We will give one dose of Lasix. Follow echocardiogram. Follow the response. 4. History of sleep apnea. Continue CPAP at bedtime. 5. History of paroxysmal atrial fibrillation, rate controlled on amiodarone and metoprolol succinate, on Coumadin. Follow INR. 6. History of hypertension: On losartan, metoprolol succinate, amlodipine. We will monitor the blood pressure. 7. History of hyperlipidemia, on statin. 8. History of coronary artery disease, on aspirin, beta joan, and statin. 9. Gastroesophageal reflux disease: On famotidine. 10. Depression, Lexapro. 11. Hypothyroidism, on Synthroid. 12. Vitamin B12 deficiency, on supplements. 13. HX of PE on Coumadin. 14. Deep venous thrombosis prophylaxis: On Coumadin. Follow PT/INR. DISPOSITION: Admit to Med/Surg tele. PT/OT prior to discharge. Social service to help with discharge planning. Job ID: [id number] VJ
[2021-05-20] MEDS ORDERED: NITROGLYCERIN SL 0.4 MG/TAB TAB SL PRN (01:33)
[2021-05-20 06:00] LABS: Basophils # (auto) 0.01 K/uL (0-0.2); Basophils % (auto) 0.2 %; Eosinophils # (auto) 0.03 K/uL (0-0.5); Eosinophils % (auto) 0.5 %; Hematocrit (blood only) 32.9 % (37-47); Hemoglobin 10.6 g/dL (12.0-16.0); Immature Granulocytes # (auto) 0.01 K/uL (0.00-0.02); Immature Granulocytes % (auto) 0.2 %; Lymphocytes # (auto) 1.83 K/uL (1.2-3.4); Lymphocytes % (auto) 30.2 %; Mean Corpuscular Hemoglobin 28.6 pg (25-34); Mean Corpuscular Hgb Conc 32.2 g/dL (32-36); Mean Corpuscular Volume 88.9 fL (80-100); Mean Platelet Volume 8.8 fL (7.4-10.4); Monocytes # (auto) 0.63 K/uL (0.11-0.59); Monocytes % (auto) 10.4 %; Neutrophils # (auto) 3.55 K/uL (1.4-6.5); Neutrophils % (auto) 58.5 %; Platelet Count 215 K/uL (130-400); RDW Coefficient of Variation 15.6 % (11.5-14.5); RDW Standard Deviation 50.8 fL (36.4-46.3); White Blood Count 6.06 K/uL (4.8-10.8)
[2021-05-20 06:13] LABS: INR 3.3 (0.9-1.1); Prothrombin Time 32.8 Seconds (9.0-12.0)
[2021-05-20] MEDS ORDERED: FUROSEMIDE INJ 20 MG/2 ML VIAL IV ONE (06:19)
[2021-05-20] MEDS ORDERED: POTASSIUM CHLORIDE CRTAB 20 MEQ TABCR PO STA ×2 (06:19→08:09)
[2021-05-20 06:22] LABS: BUN Creatinine Ratio 10.5 (10-20); Creatinine Clr Calc Pharmacy 86.7 ml/min; Est GFR (African American) 79.3 ml/min; Est GFR (Non-African American) 68.4 ml/min; Magnesium 1.7 mg/dl (1.7-2.4); Potassium 3.3 mmol/L (3.5-5.1)
[2021-05-20] MEDS: LEVOTHYROXINE SODIUM 50 MCG TABLET PO SCH (06:22)
[2021-05-20] MEDS: FAMOTIDINE 20 MG TAB PO SCH ×2 (07:40→20:50)
[2021-05-20] MEDS: METOPROLOL SUCC 25MG EXT REL TAB PO SCH (07:40)
[2021-05-20] MEDS: CYANOCOBALAMIN (B-12) 500 MCG TABLET PO SCH (07:40)
[2021-05-20] MEDS: LOSARTAN POTASSIUM 50 MG TAB PO SCH (07:40)
[2021-05-20] MEDS: AMIODARONE 200 MG TAB PO SCH (07:41)
[2021-05-20] MEDS: CHOLECALCIFEROL 1,000 UNITS 25 MCG TAB PO SCH (07:41)
[2021-05-20] MEDS: ASPIRIN 81 MG ECTAB PO SCH (07:41)
[2021-05-20] MEDS: amLODIPine BESYLATE 5 MG TAB PO SCH (07:41)
[2021-05-20] MEDS: ONDANSETRON INJ 2 MG/ML 2 ML VIAL IV PRN (07:46)
[2021-05-20] MEDS: ACETAMINOPHEN 325 MG TAB PO PRN ×2 (07:46→14:48)
[2021-05-20] MEDS ORDERED: PANTOprazole 40 MG TAB PO SCH (09:00)
[2021-05-20] MEDS ORDERED: cefTRIAXone SODIUM 1,000 MG in DEXTROSE 5% 50 ML IV SCH (09:00)
[2021-05-20 09:28] LABS: Appearance Urine Clear (Clear); Bacteria Urine Automated Negative (Negative); Bilirubin Urine Negative (Negative); Blood Urine 2+ (Negative); Color Urine Yellow; Epithelial Cell Urine Auto 20-30 /lpf (0-5); Glucose Urine UA Negative (Negative); Ketones Urine Negative (Negative); Leukocyte Esterase Urine Negative (Negative); Nitrite Urine Negative (Negative); Protein Urine Negative (Negative); Urobilinogen Urine Negative (Negative); pH Urine 5.5 (4.5-7.5)
--- NOTE | 2021-05-20 09:33 | XRay Report ---
XR chest 1V portable CLINICAL HISTORY: Fever COMPARISON STUDY: Chest radiograph July 12, 2020. FINDINGS: Dual lead left pacer is in place. There is no pneumothorax or pleural effusion. Cardiomegal y is unchanged. No evidence for pulmonary edema. Right mid and lower lung airspace opacities are pres ent. No opacity within left lung is present. IMPRESSION: 1. Right mid and lower lung airspace opacities which favor an infectious process. Radiographic follow -up to ensure resolution is recommended. 2. Cardiomegaly. No evidence for pulmonary edema. ACT 112: Negative or not required by law. Electronically signed by: Nav Jurado M.D. 05/20/2021 9:32 AM
[2021-05-20] MEDS: DOXYCYCLINE HYCLATE 100 MG in DEXTROSE 5% 100 ML IV SCH (12:15)
[2021-05-20] MEDS: BENZONATATE 100 MG CAPSULE PO PRN (14:48)
[2021-05-20] MEDS: guaiFENesin/CODEINE 100MG/10MG 5ML UDC PO PRN (14:49)
[2021-05-20] MEDS: CARBAMIDE PEROXIDE 6.5% 15 ML BTL OT SCH ×2 (15:41→20:51)
[2021-05-20] MEDS ORDERED: WARFARIN SOD 5 MG TAB PO SCH (16:00)
--- NOTE | 2021-05-20 16:52 | Hospitalist Progress Note ---
Date of Service May 20, 2021 Assessment & Plan (1) Community acquired pneumonia: Plan: 1. This is a 70-year-old female who presents with ongoing cough, feeling weak. 2. R sided Pneumonia - CXR: 1. Right mid and lower lung airspace opacities which favor an infectious process. Radiographic follow-up to ensure resolution is recommended. - sputum culture: pending - continue Ceftri + Doxy Mucinex IS and Flutter valve 2. Cardiomegaly. No evidence for pulmonary edema. -- echo ordered 3. History of diastolic congestive heart failure, -- BNP 224 -- echo pending -- does not appear to be overtly volume overloaded may benefit from Lasix 20mg po daily for leg edema 4. History of sleep apnea. Continue CPAP at bedtime. 5. History of paroxysmal atrial fibrillation, rate controlled on amiodarone and metoprolol succinate, on Coumadin. Follow INR. -- INR 3.3 hold coumadin monitor 6. History of hypertension: On losartan, metoprolol succinate, amlodipine. We will monitor the blood pressure. 7. History of hyperlipidemia, on statin. 8. History of coronary artery disease, on aspirin, beta joan, and statin. 9. Gastroesophageal reflux disease: On famotidine. 10. Depression, Lexapro. 11. Hypothyroidism, on Synthroid. 12. Vitamin B12 deficiency, on supplements. 13. HX of PE on Coumadin. 14. Deep venous thrombosis prophylaxis: On Coumadin. Follow PT/INR. Admission and Anticipated Discharge Date Admission Date: May 19, 2021 Subjective ff up for pneumonia, etc seen resting in bed, comfortable states she feels somewhat better no dyspnea still has productive cough reports mild ongoing pain, preauricular area also reports decreased hearing from earwax no chest pain, palpitations, dizziness no abodminal pain, n/v no fever/chills no other symptoms Review of Systems Review of Systems: all noted and negative except for above Physical Exam Physical Exam: General- oriented x 3, not in distress, speaks in sentences with no effort or accessory muscle use Head- atraumatic Eyes- PERRL, EOMI, anicteric ENT-no ear discharge ears: essentially normal mild edema, tenderness, no erythema on the L preauricular area oropharynx clear Neck- supple, no JVD, no adenopathy, no thyromegaly; carotids +2/2, no bruits appreciated Lungs- mild rhonchi at the bases, no wheezing Heart- normal rate, regular rhythm; no murmur, no gallop, no rub appreciated Abdomen- normal bowel sounds, nondistended, soft, nontender, no masses or hepatosplenomegaly Extremities- mild lower leg edema, no calf tenderness; peripheral pulses intact Neuro- alert, oriented x 3; CN 2-12 grossly intact; motor 5/5 bilaterally;sensation 100% on all extremities; no other gross focal neurologic deficits Skin- warm & dry Results & Data Results & Data ([facility]) Vital Signs (Past 12 Hours) Vital Signs Temp Pulse Resp BP Pulse Ox 05/20/21 15:01 36.9 C 61 16 134/77 92 all noted and reviewed including below
[2021-05-20] MEDS: FLUTICASONE PROPIONATE NA SPR 16 GM BTL PRN (17:48)
[2021-05-20] MEDS: guaiFENesin 600 MG TABCR PO SCH (20:50)
[2021-05-20] MEDS: ATORVASTATIN 40 MG TAB PO SCH (20:50)
[2021-05-20] MEDS: ESCITALOPRAM OXALATE 20 MG TAB PO SCH (20:50)
[2021-05-20] MEDS ORDERED: cefTRIAXone SODIUM 2,000 MG in DEXTROSE 5% 50 ML IV SCH (22:00)
[2021-05-21] MEDS: DOXYCYCLINE HYCLATE 100 MG in DEXTROSE 5% 100 ML IV SCH (00:50)
[2021-05-21] MEDS: LEVOTHYROXINE SODIUM 50 MCG TABLET PO SCH (06:31)
--- NOTE | 2021-05-21 06:49 | Electrocardiogram Report ---
Test Reason : Blood Pressure : / mmHG Vent. Rate : 065 BPM Atrial Rate : 065 BPM P-R Int : 186 ms QRS Dur : 092 ms QT Int : 456 ms P-R-T Axes : 006 003 -06 degrees QTc Int : 474 ms Atrial-paced rhythm Nonspecific ST and T wave abnormality Prolonged QT Abnormal ECG When compared with ECG of 12-JUL-2020 13:19, No significant change was found Confirmed by Daniel Grant ([id number]) on 05/21/2021 6:49:09 AM Referred By: REFERRED SELF Confirmed By:Daniel Grant
[2021-05-21 07:11] LABS: INR 2.6 (0.9-1.1); Prothrombin Time 26.7 Seconds (9.0-12.0)
[2021-05-21] MEDS: FAMOTIDINE 20 MG TAB PO SCH ×2 (07:49→20:37)
[2021-05-21] MEDS: LOSARTAN POTASSIUM 50 MG TAB PO SCH (07:49)
[2021-05-21] MEDS: AMIODARONE 200 MG TAB PO SCH (07:49)
[2021-05-21] MEDS: CYANOCOBALAMIN (B-12) 500 MCG TABLET PO SCH (07:50)
[2021-05-21] MEDS: ASPIRIN 81 MG ECTAB PO SCH (07:51)
[2021-05-21] MEDS: amLODIPine BESYLATE 5 MG TAB PO SCH (07:51)
[2021-05-21] MEDS: METOPROLOL SUCC 25MG EXT REL TAB PO SCH (07:51)
[2021-05-21] MEDS: CHOLECALCIFEROL 1,000 UNITS 25 MCG TAB PO SCH (07:51)
[2021-05-21] MEDS: guaiFENesin 600 MG TABCR PO SCH ×2 (07:51→20:36)
[2021-05-21] MEDS: ACETAMINOPHEN 325 MG TAB PO PRN ×2 (08:03→20:32)
[2021-05-21] MEDS: BENZONATATE 100 MG CAPSULE PO PRN (08:03)
[2021-05-21] MEDS: guaiFENesin/CODEINE 100MG/10MG 5ML UDC PO PRN (08:03)
[2021-05-21] MEDS: CARBAMIDE PEROXIDE 6.5% 15 ML BTL OT SCH ×2 (08:04→20:34)
[2021-05-21] MEDS ORDERED: XOPENEX/ATROVENT 1.25mg/0.5MG NEB COMBO NEB STA (08:47)
[2021-05-21] MEDS ORDERED: IPRATROPIUM BROMIDE NEB SOLN 0.02% 2.5 ML VIAL INH STA (08:50)
[2021-05-21] MEDS ORDERED: LEVALBUTEROL 1.25MG/0.5ML NEB INH STA (08:50)
[2021-05-21] MEDS ORDERED: CONSULT PHARMACY STA (09:35)
--- NOTE | 2021-05-21 09:36 | Hospitalist Progress Note ---
Date of Service May 21, 2021 delayed entry date of service noted above Assessment & Plan (1) Community acquired pneumonia: Plan: 1. This is a 70-year-old female who presents with ongoing cough, feeling weak. 2. R sided Pneumonia - CXR: 1. Right mid and lower lung airspace opacities which favor an infectious process. Radiographic follow-up to ensure resolution is recommended. - sputum culture: pending - continue Ceftri + Doxy Mucinex IS and Flutter valve 2. Cardiomegaly. No evidence for pulmonary edema. -- echo ordered 3. History of diastolic congestive heart failure, -- BNP 224 -- echo pending -- does not appear to be overtly volume overloaded may benefit from Lasix 20mg po daily for leg edema 4. History of sleep apnea. Continue CPAP at bedtime. 5. History of paroxysmal atrial fibrillation, rate controlled on amiodarone and metoprolol succinate, on Coumadin. Follow INR. -- INR 3.3 hold coumadin monitor 6. History of hypertension: On losartan, metoprolol succinate, amlodipine. We will monitor the blood pressure. 7. History of hyperlipidemia, on statin. 8. History of coronary artery disease, on aspirin, beta joan, and statin. 9. Gastroesophageal reflux disease: On famotidine. 10. Depression, Lexapro. 11. Hypothyroidism, on Synthroid. 12. Vitamin B12 deficiency, on supplements. 13. HX of PE on Coumadin. 14. Deep venous thrombosis prophylaxis: On Coumadin. Follow PT/INR. Admission and Anticipated Discharge Date Admission Date: May 19, 2021 Subjective ff up for pneumonia, etc seen resting in bed, comfortable states she feels somewhat better still has productive cough left preauricular pain improving no other symptoms Review of Systems Review of Systems: all noted and negative except for above Physical Exam Physical Exam: General- oriented x 3, not in distress, speaks in sentences with no effort or accessory muscle use Face- edema on the L preauricular area improving Eyes- anicteric Neck- no JVD Lungs- (+) crackles on the right clear on the left Heart- normal rate, regular rhythm; no murmurs Abdomen- normal bowel sounds, nondistended, soft, nontender Extremities- trace pretibial edema, no calf tenderness Neuro- alert, oriented x 3; no gross focal neurologic deficits Skin- warm & dry Results & Data Results & Data ([facility]) Vital Signs (Past 12 Hours) Vital Signs Temp Pulse Pulse Resp BP Pulse Ox 05/21/21 08:55 65 18 93 05/21/21 07:55 37.0 C 64 16 141/69 H 92 05/21/21 05:05 72 23 95 05/21/21 04:07 37.0 C 63 18 137/65 92 05/20/21 23:37 60 05/20/21 23:24 36.7 C 60 18 109/66 93 05/20/21 23:05 81 20 95 all noted and reviewed including below
[2021-05-21] MEDS: CEFEPIME 2,000 MG in SYRINGE 0 ML IV SCH ×2 (10:59→18:03)
[2021-05-21] MEDS: IPRATROPIUM BROMIDE NEB SOLN 0.02% 2.5 ML VIAL INH SCH ×2 (12:42→18:58)
[2021-05-21] MEDS: LEVALBUTEROL 1.25MG/0.5ML NEB INH SCH ×2 (12:44→18:58)
[2021-05-21] MEDS ORDERED: XOPENEX/ATROVENT 1.25mg/0.5MG NEB COMBO NEB SCH (13:00)
[2021-05-21] MEDS ORDERED: WARFARIN SOD 2.5 MG TAB PO SCH (16:00)
[2021-05-21] MEDS: ONDANSETRON INJ 2 MG/ML 2 ML VIAL IV PRN (18:00)
[2021-05-21] MEDS: WARFARIN SOD 2.5 MG TAB PO SCH (20:33)
[2021-05-21] MEDS: ATORVASTATIN 40 MG TAB PO SCH (20:33)
[2021-05-21] MEDS: DOXYCYCLINE HYCLATE 100 MG CAP PO SCH (20:34)
[2021-05-21] MEDS: ESCITALOPRAM OXALATE 20 MG TAB PO SCH (20:35)
[2021-05-22] MEDS: IPRATROPIUM BROMIDE NEB SOLN 0.02% 2.5 ML VIAL INH SCH ×4 (00:08→19:57)
[2021-05-22] MEDS: LEVALBUTEROL 1.25MG/0.5ML NEB INH SCH ×4 (00:08→19:57)
[2021-05-22] MEDS: CEFEPIME 2,000 MG in SYRINGE 0 ML IV SCH ×3 (01:31→16:59)
[2021-05-22] MEDS: LEVOTHYROXINE SODIUM 50 MCG TABLET PO SCH (06:09)
[2021-05-22] MEDS: ACETAMINOPHEN 325 MG TAB PO PRN ×3 (06:40→20:15)
[2021-05-22 07:23] LABS: INR 2.2 (0.9-1.1); Prothrombin Time 22.3 Seconds (9.0-12.0)
[2021-05-22] MEDS: CARBAMIDE PEROXIDE 6.5% 15 ML BTL OT SCH ×2 (07:53→20:14)
[2021-05-22] MEDS: ASPIRIN 81 MG ECTAB PO SCH (07:54)
[2021-05-22] MEDS: FLUTICASONE PROPIONATE NA SPR 16 GM BTL PRN (07:54)
[2021-05-22] MEDS: CYANOCOBALAMIN (B-12) 500 MCG TABLET PO SCH (07:54)
[2021-05-22] MEDS: CHOLECALCIFEROL 1,000 UNITS 25 MCG TAB PO SCH (07:54)
[2021-05-22] MEDS: AMIODARONE 200 MG TAB PO SCH (07:55)
[2021-05-22] MEDS: LOSARTAN POTASSIUM 50 MG TAB PO SCH (07:55)
[2021-05-22] MEDS: METOPROLOL SUCC 25MG EXT REL TAB PO SCH (07:55)
[2021-05-22] MEDS: DOXYCYCLINE HYCLATE 100 MG CAP PO SCH ×2 (07:56→20:13)
[2021-05-22] MEDS: guaiFENesin 600 MG TABCR PO SCH ×2 (07:56→20:12)
[2021-05-22] MEDS: amLODIPine BESYLATE 5 MG TAB PO SCH (07:56)
[2021-05-22 07:57] LABS: Creatinine Clr Calc Pharmacy 73.4 ml/min; Est GFR (African American) 64.5 ml/min; Est GFR (Non-African American) 55.7 ml/min
[2021-05-22] MEDS: FAMOTIDINE 20 MG TAB PO SCH ×2 (07:57→20:10)
[2021-05-22] MEDS: WARFARIN SOD 2.5 MG TAB PO SCH (17:35)
--- NOTE | 2021-05-22 18:29 | Hospitalist Progress Note ---
Date of Service May 22, 2021 Assessment & Plan (1) Community acquired pneumonia: Plan: Patient is a 70 yr female who presents with ongoing cough, feeling weak. Community-acquired pneumonia CXR: Right mid and lower lung airspace opacities which favor an infectious pr ocess. Radiographic follow-up to ensure resolution is recommended. -sputum culture:Normal Millie Blood Cx: No growth to date Continue Cefepime and Doxy Pulmonary hygiene Cardiomegaly No evidence for pulmonary edema. -ECHO: Left ventricle is normal in size. Mild concentric LVH. Left ventricle wall motion is normal. EF 60 to 65%. Aortic valve sclerosis mild, without significant aortic valve stenosis. No significant valvular heart disease. Hypokalemia Replete electrolytes as needed H/O Diastolic congestive heart failure, -- BNP 224 --ECHO as above No signs of Overt volume overloaded May need Lasix 20mg po daily for leg edema Sleep apnea Continue CPAP at bedtime H/O Paroxysmal atrial fibrillation Continue amiodarone and metoprolol succinate Continue Coumadin INR 2.2 Hypertension: On losartan, metoprolol succinate, amlodipine Monitor Hyperlipidemia on statin. CAD on aspirin, beta joan, and statin. GERD On famotidine. Depression On Lexapro H/O PE on Coumadin. DVT Px: Coumadin Admission and Anticipated Discharge Date Admission Date: May 19, 2021 Subjective Patient is seen and examined at bedside Cough, dyspnea on exertion improving Denies any chest pain, dizziness, nausea, abdominal pain Offers no other complaints Review of Systems Review of Systems: All systems reviewed & are unremarkable except as noted in Subjective Physical Exam Physical Exam: Physical Exam: Vitals signs as noted above General Appearance:Morbidly Obese, no apparent distress Head: normocephalic, Atraumatic Eyes: normal inspection, EOMI Neck: supple, Trachea midline Respiratory/Chest: Normal breath sounds, CTA Cardiovascular: S1, S2, No murmur Abdomen/GI:Soft, Non tender, Bowel sounds present Extremities/Musculoskeletal:normal inspection, no edema Neurologic/Psych:AAOX3, grossly no focal neurological deficits Skin: normal color, warm Results & Data Results & Data ([facility]) Vital Signs (Past 12 Hours) Vital Signs Temp Pulse Resp BP Pulse Ox 05/22/21 15:20 36.5 C 65 16 122/76 93 05/22/21 13:00 64 18 93 05/22/21 11:06 36.4 C L 61 16 109/64 92 05/22/21 07:33 36.6 C 62 16 122/75 97 05/22/21 07:07 59 L 18 92 Laboratory Results [facility] 05/22/21 06:07 Creatinine 1.02
[2021-05-22] MEDS: ESCITALOPRAM OXALATE 20 MG TAB PO SCH (20:10)
[2021-05-22] MEDS: ATORVASTATIN 40 MG TAB PO SCH (20:11)
[2021-05-22] MEDS: guaiFENesin/CODEINE 100MG/10MG 5ML UDC PO PRN (20:16)
[2021-05-23] MEDS: LEVALBUTEROL 1.25MG/0.5ML NEB INH SCH ×4 (00:05→19:31)
[2021-05-23] MEDS: IPRATROPIUM BROMIDE NEB SOLN 0.02% 2.5 ML VIAL INH SCH ×4 (00:05→19:29)
[2021-05-23] MEDS: CEFEPIME 2,000 MG in SYRINGE 0 ML IV SCH ×3 (02:05→18:23)
[2021-05-23] MEDS: LEVOTHYROXINE SODIUM 50 MCG TABLET PO SCH (06:18)
[2021-05-23 06:35] LABS: Hemoglobin 10.3 g/dL (12.0-16.0); Mean Corpuscular Hemoglobin 28.3 pg (25-34); Mean Corpuscular Hgb Conc 31.2 g/dL (32-36); Mean Corpuscular Volume 90.7 fL (80-100); Platelet Count 248 K/uL (130-400); RDW Standard Deviation 53.1 fL (36.4-46.3); Red Blood Count 3.64 M/uL (4.2-5.4); White Blood Count 5.57 K/uL (4.8-10.8)
[2021-05-23 06:46] LABS: INR 1.9 (0.9-1.1)
[2021-05-23 06:54] LABS: Creatinine Clr Calc Pharmacy 83.4 ml/min; Est GFR (African American) 75.1 ml/min; Est GFR (Non-African American) 64.8 ml/min
[2021-05-23] MEDS: ACETAMINOPHEN 325 MG TAB PO PRN ×2 (08:00→17:10)
[2021-05-23] MEDS: guaiFENesin/CODEINE 100MG/10MG 5ML UDC PO PRN (08:00)
[2021-05-23] MEDS: DOXYCYCLINE HYCLATE 100 MG CAP PO SCH ×2 (08:01→20:39)
[2021-05-23] MEDS: METOPROLOL SUCC 25MG EXT REL TAB PO SCH (08:01)
[2021-05-23] MEDS: LOSARTAN POTASSIUM 50 MG TAB PO SCH (08:01)
[2021-05-23] MEDS: amLODIPine BESYLATE 5 MG TAB PO SCH (08:02)
[2021-05-23] MEDS: guaiFENesin 600 MG TABCR PO SCH ×2 (08:02→20:38)
[2021-05-23] MEDS: FAMOTIDINE 20 MG TAB PO SCH ×2 (08:02→20:37)
[2021-05-23] MEDS: AMIODARONE 200 MG TAB PO SCH (08:02)
[2021-05-23] MEDS: CYANOCOBALAMIN (B-12) 500 MCG TABLET PO SCH (08:02)
[2021-05-23] MEDS: ASPIRIN 81 MG ECTAB PO SCH (08:02)
[2021-05-23] MEDS: CHOLECALCIFEROL 1,000 UNITS 25 MCG TAB PO SCH (08:05)
[2021-05-23] MEDS: ONDANSETRON INJ 2 MG/ML 2 ML VIAL IV PRN (09:07)
[2021-05-23] MEDS ORDERED: WARFARIN SOD 3 MG TAB PO SCH (16:00)
--- NOTE | 2021-05-23 16:13 | Hospitalist Progress Note ---
Date of Service May 23, 2021 Assessment & Plan (1) Community acquired pneumonia: Plan: Patient is a 70 yr female who presents with ongoing cough, feeling weak. Community-acquired pneumonia CXR: Right mid and lower lung airspace opacities which favor an infectious pr ocess. Radiographic follow-up to ensure resolution is recommended. -sputum culture:Normal Millie Blood Cx: No growth to date Continue Cefepime and Doxy Pulmonary hygiene Saturating well on room air Continue current management Cardiomegaly No evidence for pulmonary edema. -ECHO: Left ventricle is normal in size. Mild concentric LVH. Left ventricle wall motion is normal. EF 60 to 65%. Aortic valve sclerosis mild, without significant aortic valve stenosis. No significant valvular heart disease. Hypokalemia Replete electrolytes as needed H/O Diastolic congestive heart failure, -- BNP 224 --ECHO as above No signs of Overt volume overloaded May need Lasix 20mg po daily for leg edema Sleep apnea Continue CPAP at bedtime H/O Paroxysmal atrial fibrillation Continue amiodarone and metoprolol succinate Continue Coumadin INR 2.2 >1.9 Increase Coumadin to 3mg today Hypertension: On losartan, metoprolol succinate, amlodipine Monitor Hyperlipidemia on statin. CAD on aspirin, beta joan, and statin. GERD On famotidine. Depression On Lexapro H/O PE on Coumadin. DVT Px: Coumadin Admission and Anticipated Discharge Date Admission Date: May 19, 2021 Subjective Patient is seen and examined at bedside Less cough today No new complaints Dyspnea better Denies any chest pain, dizziness, nausea, abdominal pain Review of Systems Review of Systems: All systems reviewed & are unremarkable except as noted in Subjective Physical Exam Physical Exam: Physical Exam: Vitals signs as noted above General Appearance:Morbidly Obese, no apparent distress Head: normocephalic, Atraumatic Eyes: normal inspection, EOMI Neck: supple, Trachea midline Respiratory/Chest: Normal breath sounds, CTA Cardiovascular: S1, S2, No murmur Abdomen/GI:Soft, Non tender, Bowel sounds present Extremities/Musculoskeletal:normal inspection, no edema Neurologic/Psych:AAOX3, grossly no focal neurological deficits Skin: normal color, warm Results & Data Results & Data ([facility]) Vital Signs (Past 12 Hours) Vital Signs Temp Pulse Pulse Resp BP Pulse Ox 05/23/21 15:33 36.8 C 61 20 118/72 93 05/23/21 12:55 62 93 05/23/21 11:45 36.8 C 64 20 126/58 L 95 05/23/21 09:00 88 05/23/21 08:09 36.6 C 75 20 146/78 H 93 05/23/21 07:04 66 94 Laboratory Results Short CBC 05/23/21 Range/Units 06:08 WBC 5.57 (4.8-10.8) K/uL Hgb 10.3 L (12.0-16.0) g/dL Hct 33.0 L (37-47) % Plt Count 248 (130-400) K/uL BMP 05/23/21 06:08 Creatinine 0.90
[2021-05-23] MEDS: CARBAMIDE PEROXIDE 6.5% 15 ML BTL OT SCH ×2 (17:10→20:37)
[2021-05-23] MEDS: ESCITALOPRAM OXALATE 20 MG TAB PO SCH (20:39)
[2021-05-23] MEDS: ATORVASTATIN 40 MG TAB PO SCH (20:40)
[2021-05-24] MEDS: IPRATROPIUM BROMIDE NEB SOLN 0.02% 2.5 ML VIAL INH SCH ×3 (00:04→12:58)
[2021-05-24] MEDS: LEVALBUTEROL 1.25MG/0.5ML NEB INH SCH ×3 (00:05→12:58)
[2021-05-24] MEDS: CEFEPIME 2,000 MG in SYRINGE 0 ML IV SCH ×2 (02:35→10:02)
[2021-05-24] MEDS: LEVOTHYROXINE SODIUM 50 MCG TABLET PO SCH (05:49)
[2021-05-24 06:31] LABS: Prothrombin Time 20.1 Seconds (9.0-12.0)
[2021-05-24 06:46] LABS: BUN Creatinine Ratio 23.4 (10-20); Calcium 8.5 mg/dl (8.5-10.1); Creatinine Clr Calc Pharmacy 80.4 ml/min; Est GFR (African American) 71.2 ml/min; Est GFR (Non-African American) 61.5 ml/min; Potassium 3.8 mmol/L (3.5-5.1)
[2021-05-24] MEDS: ACETAMINOPHEN 325 MG TAB PO PRN (07:20)
[2021-05-24] MEDS: guaiFENesin/CODEINE 100MG/10MG 5ML UDC PO PRN (07:20)
[2021-05-24] MEDS: guaiFENesin 600 MG TABCR PO SCH (08:33)
[2021-05-24] MEDS: FAMOTIDINE 20 MG TAB PO SCH (08:33)
[2021-05-24] MEDS: METOPROLOL SUCC 25MG EXT REL TAB PO SCH (08:33)
[2021-05-24] MEDS: LOSARTAN POTASSIUM 50 MG TAB PO SCH (08:33)
[2021-05-24] MEDS: CHOLECALCIFEROL 1,000 UNITS 25 MCG TAB PO SCH (08:34)
[2021-05-24] MEDS: amLODIPine BESYLATE 5 MG TAB PO SCH (08:34)
[2021-05-24] MEDS: DOXYCYCLINE HYCLATE 100 MG CAP PO SCH (08:34)
[2021-05-24] MEDS: ASPIRIN 81 MG ECTAB PO SCH (08:34)
[2021-05-24] MEDS: CYANOCOBALAMIN (B-12) 500 MCG TABLET PO SCH (08:34)
[2021-05-24] MEDS: AMIODARONE 200 MG TAB PO SCH (08:35)
[2021-05-24] MEDS: CARBAMIDE PEROXIDE 6.5% 15 ML BTL OT SCH (08:35)
[2021-05-24] MEDS: ONDANSETRON INJ 2 MG/ML 2 ML VIAL IV PRN (10:08)
[2021-05-24] MEDS ORDERED: ONDANSETRON 4 MG OD TAB PO PRN (10:27)
--- NOTE | 2021-05-24 13:57 | Hospitalist Progress Note ---
Date of Service May 24, 2021 Assessment & Plan (1) Community acquired pneumonia: Plan: Patient is a 70 yr female who presents with ongoing cough, feeling weak. Community-acquired pneumonia CXR: Right mid and lower lung airspace opacities which favor an infectious pr ocess. Radiographic follow-up to ensure resolution is recommended. -sputum culture:Normal Millie Blood Cx: No growth to date Continue Cefepime and Doxy Pulmonary hygiene Saturating well on room air Plan to transition to PO antibiotics upon discharge to complete the course Cardiomegaly No evidence for pulmonary edema. -ECHO: Left ventricle is normal in size. Mild concentric LVH. Left ventricle wall motion is normal. EF 60 to 65%. Aortic valve sclerosis mild, without significant aortic valve stenosis. No significant valvular heart disease. Hypokalemia Replete electrolytes as needed H/O Diastolic congestive heart failure, -- BNP 224 --ECHO as above No signs of Overt volume overloaded May need Lasix 20mg po daily for leg edema Sleep apnea Continue CPAP at bedtime H/O Paroxysmal atrial fibrillation Continue amiodarone and metoprolol succinate Continue Coumadin INR 2.2 >1.9> 2.0 Continue Coumadin Hypertension: On losartan, metoprolol succinate, amlodipine Monitor Hyperlipidemia on statin. CAD on aspirin, beta joan, and statin. GERD On famotidine. Depression On Lexapro H/O PE on Coumadin. DVT Px: Coumadin Admission and Anticipated Discharge Date Admission Date: May 19, 2021 Subjective Patient is seen and examined at bedside States feeling well Transient dizziness this mooring but resolved currently Has minimal cough Denies any chest pain, dyspnea, dizziness, nausea, abdominal pain Review of Systems Review of Systems: All systems reviewed & are unremarkable except as noted in Subjective Physical Exam Physical Exam: Physical Exam: Vitals signs as noted above General Appearance:Morbidly Obese, no apparent distress Head: normocephalic, Atraumatic Eyes: normal inspection, EOMI Neck: supple, Trachea midline Respiratory/Chest: Normal breath sounds, CTA Cardiovascular: S1, S2, No murmur Abdomen/GI:Soft, Non tender, Bowel sounds present Extremities/Musculoskeletal:normal inspection, no edema Neurologic/Psych:AAOX3, grossly no focal neurological deficits Skin: normal color, warm Results & Data Results & Data ([facility]) Vital Signs (Past 12 Hours) Vital Signs Temp Pulse Pulse Pulse Resp BP Pulse Ox 05/24/21 13:23 36.6 C 64 16 111/70 95 05/24/21 12:58 64 16 95 05/24/21 11:08 36.6 C 60 18 111/70 92 05/24/21 10:19 93 05/24/21 08:00 36.8 C 65 18 110/70 90 05/24/21 07:25 61 05/24/21 06:53 69 16 93 05/24/21 03:22 67 16 94 05/24/21 02:54 36.6 C 60 18 121/[address] [facility] 05/24/21 05:45 Sodium 140 Potassium 3.8 Chloride 108 H Carbon Dioxide 27 BUN 22 Creatinine 0.94 Glucose 98 Calcium 8.5
--- NOTE | 2021-05-24 14:24 | Discharge Summary ---
Date of Service May 24, 2021 Admission HPI Per Admitting Provider CHIEF COMPLAINT: Cough. HISTORY OF PRESENT ILLNESS: This is a 70-year-old female with past medical history significant for hyperlipidemia; obstructive sleep apnea, on CPAP; paroxysmal atrial fibrillation; chronic diastolic CHF; chronic kidney disease, stage III; CAD; hypertension; history of stress-induced cardiomyopathy; GERD; vitamin B12 deficiency; morbid obesity; hiatal hernia; lumbosacral radiculopathy; benign positional vertigo; migraines; depression; history of pulmonary embolism; umbilical hernia; presents with cough going on for 1-week with greenish and brownish phlegm. Denies any fevers. She is not getting better and also plugged in ears. Denies any headache. No runny nose, some sore throat, no difficulty swallowing. Denies any chest pain, no shortness of breath, no abdominal pain. Was nauseous, had diarrhea for a couple of days ago that resolved. Has some swelling in the legs. Hemodynamically stable. The patient was feeling weak and tired. Admission Exam Per Admitting Provider PHYSICAL EXAMINATION: GENERAL: The patient is morbidly obese, not in acute distress. VITAL SIGNS: Temperature 36.7, pulse 61, respiratory rate 16, blood pressure 150/52, oxygen 93% on room air. HEENT: Pupils equal, round and reactive to light. Oral mucosa moist. NECK: No JVD. No masses. CARDIOVASCULAR: S1 and S2 heard. Regular rate and rhythm. No murmur, no gallop. RESPIRATORY SYSTEM: Normal AP diameter. No accessory muscle use. No wheezing, no crackles. ABDOMEN: Soft, bowel sounds present, nontender, no distention. CENTRAL NERVOUS SYSTEM: Cranial nerves II through XII are grossly intact, nonfocal. EXTREMITIES: Bilateral lower extremity pedal edema present, no erythema seen. Principal Diagnosis Community-acquired pneumonia Discharge Data Allergies Allergy/AdvReac Type Severity Reaction Status Date / Time celecoxib Allergy Intermediate Hives Verified 05/19/21 20:34 latex Allergy Intermediate RASH Verified 05/19/21 20:34 lisinopril Allergy Intermediate Cough Verified 05/19/21 20:34 Consultations 05/19/21 22:40 ED Decision to Admit Stat Hospital Course (1) Community acquired pneumonia: Patient is a 70 yr female who presents with ongoing cough, feeling weak. Community-acquired pneumonia CXR: Right mid and lower lung airspace opacities which favor an infectious process. Radiographic follow-up to ensure resolution is recommended. -sputum culture:Normal Millie Blood Cx: No growth to date Continue Cefepime and Doxy Pulmonary hygiene Saturating well on room air Plan to transition to PO antibiotics upon discharge to complete the course Cardiomegaly No evidence for pulmonary edema. -ECHO: Left ventricle is normal in size. Mild concentric LVH. Left ventricle wall motion is normal. EF 60 to 65%. Aortic valve sclerosis mild, without significant aortic valve stenosis. No significant valvular heart disease. Hypokalemia Replete electrolytes as needed H/O Diastolic congestive heart failure, -- BNP 224 --ECHO as above No signs of Overt volume overloaded May need Lasix 20mg po daily for leg edema Sleep apnea Continue CPAP at bedtime H/O Paroxysmal atrial fibrillation Continue amiodarone and metoprolol succinate Continue Coumadin INR 2.2 >1.9> 2.0 Continue Coumadin Hypertension: On losartan, metoprolol succinate, amlodipine Monitor Hyperlipidemia on statin. CAD on aspirin, beta joan, and statin. GERD On famotidine. Depression On Lexapro H/O PE on Coumadin. DVT Px: Coumadin Total Time Total Time Spent Total Time Spent (In Minutes): 45 minutes Discharge Plan Discharge Items Patient Disposition: Home - Self-Care Reason For Visit: COUGH Discharge Diagnosis: Community-acquired pneumonia Activity: Per Instructions section Exercise/Sports: Wait until after follow-up appointment Non-emergency contact: Primary Care Provider Call non-emergency contact if: you have any medication questions, your symptoms worsen, your pain is concerning for you and you have a fever Follow-up/Referrals: Irish Richard DO [Primary Care Provider] - (Date & Time 05/29/2021 11:10 AM Provider Irish Richard DO Department Family [facility] ) Chloe Frias DO [Physician] - (Date & Time 05/28/2021 3:30 PM Provider Chloe Frias DO Department Cardiology, [facility] ) Diet: Heart Healthy Addtl Attending Provider Instructions: Follow-up with your primary care physician Dr. Irish Richard on 05/29/2021 11:10 AM Follow-up with your swatch paster ON 05/28/2021 3:30 PM Follow up with [facility] for monitoring PT/INR and managing Coumadin Dose --Complete antibiotic course Cefdinir and Doxycycline as prescribed. --Your Blood Cultures are pending at the time of discharge. Follow up with your physician for results. Seek immediate medical attention if your symptoms reoccur or worsen Please take all medications as instructed on discharge list below. Please call if you have any questions or problems. You can reach a [facility] hospitalist on duty at [facility] 24 hours a day by calling [phone] Pending Studies at Discharge: Yes Studies:: Blood Culture Stand-Alone Forms: My [facility], Smoking Cessation Medications and DC Order Prescriptions: New doxycycline hyclate 100 mg Capsule 100 mg PO BID Qty: 10 RF: 0 furosemide [Lasix] 20 mg tablet 20 mg PO DAILY PRN (Reason: edema) Qty: 10 RF: 0 cefdinir 300 mg capsule 300 mg PO BID 5 Days Qty: 10 RF: 0 Continued aspirin [Aspirin Low Dose] 81 mg Tablet,Delayed Release (Dr/Ec) 81 mg PO QAM RF: 0 acetaminophen 325 mg Tablet 2 tab PO Q6H PRN (Reason: Pain) RF: 0 cholecalciferol (vitamin D3) 1,000 unit Capsule 1,000 units PO QAM RF: 0 cyanocobalamin (vitamin B-12) 1,000 mcg Tablet, Sublingual 500 mcg SUBLINGUAL QAM RF: 0 losartan 100 mg Tablet 100 mg PO QAM RF: 0 warfarin 5 mg Tablet See Rx Instructions .ROUTE .COMPLEX RF: 0 amlodipine 2.5 mg Tablet 2.5 mg PO QAM RF: 0 atorvastatin [Lipitor] 40 mg Tablet 40 mg PO HS RF: 0 amiodarone 200 mg tablet 200 mg PO QAM RF: 0 metoprolol succinate 25 mg tablet extended release 24 hr 25 mg PO QAM RF: 0 escitalopram oxalate 20 mg tablet 20 mg PO QPM RF: 0 famotidine 20 mg tablet 20 mg PO BID RF: 0 levothyroxine 50 mcg tablet 50 mcg PO DAILYBB RF: 0 fluticasone propionate [Flonase] 50 mcg/actuation [place],Suspension 2 spray INTRANASAL DAILY PRN (Reason: Congestion) RF: 0 omeprazole 20 mg capsule,delayed release(DR/EC) 20 mg PO AMHS RF: 0 Discharge Orders: Discharge Order (Routine); Ordered 05/24/21 Ordered By: Misael Ward Admission Data Admit Date/Time: 05/19/21 23:42 Attending Provider: Misael Ward Admit Provider: Johny Elias Primary Care Provider: Irish Richard Other Providers: Johny Elias Other Interventions: Discharge Summary Assessment (RN) Last Done: 05/24/21 13:23
== END 2021-05-24 15:33 | disposition home or self-care (01) | DRG 194 ==
LOC: ED 19:31 → SUATTDRO 23:42 → 2N 23:42

== ENCOUNTER 2021-05-25 13:00 | Inpatient (IN) ==
--- NOTE | 2021-05-25 13:28 | Emergency Department Note ---
Impression & Plan GI bleed, Chronic anticoagulation, Anemia ED Provider Note NAME: JAN ADAM AGE: 70 SEX: F : 1950 ARRIVES VIA: Walk-In INFORMANT: Patient ED PROVIDER(S): Terence Maldonado DO CHIEF COMPLAINT: dark stools HPI: Patient is a 7-year-old female with past medical history of A. fib, cardiac pacemaker, tachybradycardia syndrome, hypertension that presents the ER for black stools. This started within the past 24 hours. She admits to 3 episodes of dark black stool. She has been taking her Coumadin. She also admits to bright red blood per rectum. She just recently discharged following pneumonia. She denies any headache or change in vision. No chest pain or shortness of breath. No nausea, vomiting, or diarrhea. ROS: See above HPI for pertinent positives & negatives. A total of 10 systems reviewed and were otherwise negative. PAST MEDICAL HISTORY:See Below PAST SURGICAL HISTORY:See Below FAMILY HISTORY:See Below SOCIAL HISTORY:See Below HOME MEDICATIONS:See Below ALLERGIES:See Below VITALS:See Below PHYSICAL EXAMINATION: GENERAL: Sitting up in bed, alert, well appearing, well nourished, no distress, non-toxic EYE EXAM: normal conjunctiva. PERRL and EOM's grossly intact. OROPHARYNX: no exudate, no erythema, lips, buccal mucosa, and tongue normal and mucous membranes are moist NECK: supple, no nuchal rigidity, no adenopathy, non-tender LUNGS: Clear to auscultation. Normal chest wall mechanics HEART: no murmurs, S1 normal and S2 normal ABDOMEN: abdomen soft, non-tender, normo-active bowel sounds, no masses, no rebound or guarding. GI: No significant stool but faintly heme positive UPPER EXTREMITIES: upper extremities are grossly normal. LOWER EXTREMITIES: No pitting edema. NEURO EXAM: Normal sensorium, cranial nerves II-XII grossly intact, normal speech, no gross weakness of arms, no gross weakness of legs. MEDICAL DECISION MAKING: Patient is a 70-year-old female who presents ER for above-stated complaint. IV was established blood was obtained. Labs show no significant leukocytosis. Mild anemia 11.4 which is actually consistent with her baseline. INR was therapeutic at 2.0. BMP with a normal BUN. LFTs bilirubin and lipase is unremarkable. UA was clean. Patient was typed and screened. She has no belly pain so CT was not obtained. She does complain of dark/black stools. Rectal there is no real stool but it was faintly heme positive. Question of this secondary to an internal hemorrhoid as she has had bright red blood versus a true upper GI bleed although I favor this is less likely as her BUN is not elevated. She would be at high risk now since she is on Coumadin. Cannot co mpletely rule out at this time and discussed with the hospitalist for further evaluation. She was given a bolus of Protonix. Triage Nursing notes reviewed. Limited review of prior medical records performed Vital Signs: reviewed and remarkable for HTN Differential diagnosis: Differential diagnoses includes but is not limited to gastritis, peptic ulcer disease, GERD, gallbladder disease, pancreatitis, small bowel obstruction, acute coronary syndrome, pericarditis, ischemic bowel, irritable bowel disease, irritable bowel syndrome, appendicitis, diverticulitis, malignancy, hernia, urinary tract infection, torsion, perforation, trauma, infectious. ER treatment provided: See below Diagnostics interpreted by me: ECG: Atrial paced 75 Normal axis No PVCs ST depressions V3 through V4 QTC 511 Cardiac Monitoring: An order was placed for continuous cardiac monitoring. The monitor shows a rate of 72 with sinus rhythm. Laboratory studies: As stated above and show below. Imaging studies: See below Consultation(s): Discussed with Dr. Collazo from [facility] for further evaluation Procedures: none Critical Care: None Past Med/Surg History Medical History Atrial fibrillation Paroxysmal atrial fibrillation, on rhythm control strategy with dofetilide, Coumadin (entered by Dr Borges 10/22/17) CAD (coronary artery disease) Hx cardiac cath 2015: coronary arteries have diffuse minor irregularities Depression GERD (gastroesophageal reflux disease) H/O cholecystitis H/O cholecystitis HLD (hyperlipidemia) HTN (hypertension) Hx pulmonary embolism 2014 NSTEMI (non-ST elevated myocardial infarction) Obesity JALEN (obstructive sleep apnea) Paroxysmal atrial fibrillation Stress-induced cardiomyopathy Takotsubo cardiomyopathy Surgical History H/O carpal tunnel repair H/O carpal tunnel repair H/O wisdom tooth extraction H/O: hysterectomy H/O: hysterectomy Hx of cardiac catheterization Hx of cardiac catheterization Angiographically normal coronary arteries, 10/22/17, [facility]. History, echocardiogram, cardiac catheterization data consistent with atypical presentation of stress-induced cardiomyopathy with normal apical wall motion, and hypokinesis to akinesis of the basal left ventricular myocardial segments Family History Father , in 60's of myocardial infarction Myocardial infarction, Onset Age: 62 Brother Myocardial infarction, Onset Age: 68 Other Diabetes Hypertension Social History Smoking Status: Never smoker Second Hand Exposure: No; Hx Alcohol Use: No Hx Substance Use: No Preferred Language: Colombian Communication Ability: Effective Visual Impairment: Limited Hearing Ability: Normal 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 Beliefs That Will Affect Care: None Current Living Situation: Alone Feels Safe at Home: Yes Assistive Devices: Walker Allergies Allergies Allergy/AdvReac Type Severity Reaction Status Date / Time celecoxib Allergy Intermediate Hives Verified 05/25/21 15:04 latex Allergy Intermediate RASH Verified 05/25/21 15:04 lisinopril Allergy Intermediate Cough Verified 05/25/21 15:04 Home Meds Home Medications Medication Instructions Recorded Confirmed acetaminophen 325 mg tablet 2 tab PO Q6H PRN 10/22/17 05/25/21 aspirin 81 mg tablet,delayed 81 mg PO QAM 10/22/17 05/25/21 release (Aspirin Low Dose) cholecalciferol (vitamin D3) 25 1,000 units PO QAM 10/22/17 05/25/21 mcg (1,000 unit) capsule cyanocobalamin (vitamin B-12) 500 mcg SUBLINGUAL QAM 10/22/17 05/25/21 1,000 mcg sublingual tablet losartan 100 mg tablet 100 mg PO QAM 10/22/17 05/25/21 warfarin 5 mg tablet 5 mg PO 2XWK 10/22/17 05/25/21 amlodipine 2.5 mg tablet 2.5 mg PO QAM 07/02/18 05/25/21 amiodarone 200 mg tablet 200 mg PO QAM 12/02/19 05/25/21 atorvastatin 40 mg tablet (Lipitor) 40 mg PO HS 12/02/19 05/25/21 metoprolol succinate 25 mg 25 mg PO QAM 12/02/19 05/25/21 tablet,extended release 24 hr escitalopram oxalate 20 mg tablet 20 mg PO QPM 07/12/20 05/25/21 famotidine 20 mg tablet 20 mg PO BID 07/12/20 05/25/21 fluticasone propionate 50 2 spray INTRANASAL DAILY PRN 05/19/21 05/25/21 mcg/actuation nasal spray,suspension levothyroxine 50 mcg tablet 50 mcg PO DAILYBB 05/19/21 05/25/21 omeprazole 20 mg capsule,delayed 20 mg PO AMHS 05/19/21 05/25/21 release warfarin 5 mg tablet 2.5 mg PO 5XWK 05/25/21 05/25/21 Previous Rx's Medication Instructions Recorded cefdinir 300 mg capsule 300 mg PO BID 5 Days #10 cap 05/24/21 doxycycline hyclate 100 mg capsule 100 mg PO BID #10 cap 05/24/21 furosemide 20 mg tablet (Lasix) 20 mg PO DAILY PRN #10 tab 05/24/21 Results & Data (ED) Vital Signs Vital Signs - 24 hr 05/25/21 13:02 05/25/21 13:21 05/25/21 15:01 Temperature 36 C L Temperature Source Temporal Artery Scan Pulse Rate 88 Pulse Rate [Finger] 60 Pulse Rhythm Regular Pulse Strength Normal Pulse Strength [Finger] Normal Respiratory Rate 22 20 Respiratory Effort / Characteristics Non-Labored Spontaneous Non-Labored Respiratory Depth Normal Normal Respiratory Pattern Regular Regular Blood Pressure 166/84 H Blood Pressure [Left Arm] 133/88 Blood Pressure Mean 111 Blood Pressure Mean [Left Arm] 103 Blood Pressure Position Sitting Blood Pressure Position [Left Arm] Sitting Pulse Oximetry 97 92 93 Oxygen Delivery Method Room Air Room Air Room Air Sepsis Recent Fever Within 48 Hours No Sepsis New/Unexplained Change in Mental Status No Sepsis Action Taken by Nursing No Action Required Laboratory Data Result diagrams: 05/25/21 13:30 05/25/21 13:30 Lab Results 05/25/21 05/25/21 05/25/21 Range/Units 13:30 13:30 13:30 WBC 7.25 (4.8-10.8) K/uL RBC 3.94 L (4.2-5.4) M/uL Hgb 11.4 L (12.0-16.0) g/dL Hct 35.2 L (37-47) % MCV 89.3 (80-100) fL MCH 28.9 (25-34) pg MCHC 32.4 (32-36) g/dL RDW Std Deviation 51.5 H (36.4-46.3) fL RDW Coeff of Artemio 15.7 H (11.5-14.5) % Plt Count 285 (130-400) K/uL MPV 8.8 (7.4-10.4) fL Immature Gran % (Auto) 0.0 % Neut % (Auto) 70.2 % Lymph % (Auto) 23.6 % Hard[place] % (Auto) 5.1 % Eos % (Auto) 0.8 % Baso % (Auto) 0.3 % Neut # (Auto) 5.09 (1.4-6.5) K/uL Lymph # (Auto) 1.71 (1.2-3.4) K/uL [place] # (Auto) 0.37 (0.11-0.59) K/uL Eos # (Auto) 0.06 (0-0.5) K/uL Baso # (Auto) 0.02 (0-0.2) K/uL Immature Gran # (Auto) 0.00 (0.00-0.02) K/uL PT 20.1 H (9.0-12.0) Seconds INR 2.0 H (0.9-1.1) Sodium 141 (136-145) mmol/L Potassium 3.6 (3.5-5.1) mmol/L Chloride 106 (98-107) mmol/L Carbon Dioxide 26 (21-32) mmol/L Anion Gap 9 (3-11) BUN 16 (6-23) mg/dl Creatinine 0.85 (0.6-1.2) mg/dl Est Cr Clr Drug Dosing 87.0 ml/min Est GFR ( Amer) 80.5 ml/min Est GFR (Non-Af Amer) 69.4 ml/min BUN/Creatinine Ratio 18.8 (10-20) Glucose 97 (70-99(Fasting)) mg/dl Calcium 8.8 (8.5-10.1) mg/dl Total Bilirubin 0.5 (0.2-1.0) mg/dl AST 15 (13-39) U/L ALT 13 (7-52) U/L Alkaline Phosphatase 121 H (34-104) U/L Total Protein 7.1 (6.0-8.3) gm/dl Albumin 3.6 (3.4-5.0) gm/dl Globulin 3.5 (2.5-4.0) gm/dl Albumin/Globulin Ratio 1.0 (0.9-2) Lipase 10 L (11-82) U/L Urine Color Urine Appearance (Clear) Urine pH (4.5-7.5) Ur Specific [place] (1.000-1.030) Urine Protein (Negative) Urine Glucose (UA) (Negative) Urine Ketones (Negative) Urine Blood (Negative) Urine Nitrite (Negative) Urine Bilirubin (Negative) Urine Urobilinogen (Negative) Ur Leukocyte Esterase (Negative) Urine WBC (Auto) (0-5) /hpf Urine RBC (Auto) (0-4) /hpf U Hyaline Cast (Auto) (0-5) /lpf U Epithel Cells (Auto) (0-5) /lpf Urine Bacteria (Auto) (Negative) Blood Type Antibody Screen 05/25/21 05/25/21 Range/Units 13:32 14:50 WBC (4.8-10.8) K/uL RBC (4.2-5.4) M/uL Hgb (12.0-16.0) g/dL Hct (37-47) % MCV (80-100) fL MCH (25-34) pg MCHC (32-36) g/dL RDW Std Deviation (36.4-46.3) fL RDW Coeff of Artemio (11.5-14.5) % Plt Count (130-400) K/uL MPV (7.4-10.4) fL Immature Gran % (Auto) % Neut % (Auto) % Lymph % (Auto) % [place] % (Auto) % Eos % (Auto) % Baso % (Auto) % Neut # (Auto) (1.4-6.5) K/uL Lymph # (Auto) (1.2-3.4) K/uL [place] # (Auto) (0.11-0.59) K/uL Eos # (Auto) (0-0.5) K/uL Baso # (Auto) (0-0.2) K/uL Immature Gran # (Auto) (0.00-0.02) K/uL PT (9.0-12.0) Seconds INR (0.9-1.1) Sodium (136-145) mmol/L Potassium (3.5-5.1) mmol/L Chloride (98-107) mmol/L Carbon Dioxide (21-32) mmol/L Anion Gap (3-11) BUN (6-23) mg/dl Creatinine (0.6-1.2) mg/dl Est Cr Clr Drug Dosing ml/min Est GFR ( Amer) ml/min Est GFR (Non-Af Amer) ml/min BUN/Creatinine Ratio (10-20) Glucose (70-99(Fasting)) mg/dl Calcium (8.5-10.1) mg/dl Total Bilirubin (0.2-1.0) mg/dl AST (13-39) U/L ALT (7-52) U/L Alkaline Phosphatase (34-104) U/L Total Protein (6.0-8.3) gm/dl Albumin (3.4-5.0) gm/dl Globulin (2.5-4.0) gm/dl Albumin/Globulin Ratio (0.9-2) Lipase (11-82) U/L Urine Color Yellow Urine Appearance Clear (Clear) Urine pH 5.5 (4.5-7.5) Ur Specific [place] 1.011 (1.000-1.030) Urine Protein Negative (Negative) Urine Glucose (UA) Negative (Negative) Urine Ketones Negative (Negative) Urine Blood 1+ H (Negative) Urine Nitrite Negative (Negative) Urine Bilirubin Negative (Negative) Urine Urobilinogen Negative (Negative) Ur Leukocyte Esterase Trace H (Negative) Urine WBC (Auto) 1-5 (0-5) /hpf Urine RBC (Auto) 0-4 (0-4) /hpf U Hyaline Cast (Auto) 0 (0-5) /lpf U Epithel Cells (Auto) 20-30 H (0-5) /lpf Urine Bacteria (Auto) Negative (Negative) Blood Type O Positive Antibody Screen NEGATIVE Administered Medications Discontinued Medications Pantoprazole Sodium 80 mg/ (Dextrose) 100 mls @ 400 mls/hr IV ONE STA Stop: 05/25/21 14:47 Last Infusion: 05/25/21 14:57 Dose: 400 mls/hr Documented by: [id number] Admin: 05/25/21 14:42 Dose: 400 mls/hr Documented by: [id number] Discharge Plan Visit Data Chief Complaint: GI Assessment Stated Complaint: BLACK TARRY STOOLS ED Provider: Terence Maldonado Discharge Problem: GI bleed, Chronic anticoagulation, Anemia Forms Stand Alone Forms: My [facility] Prescriptions Prescriptions: No Action aspirin [Aspirin Low Dose] 81 mg Tablet,Delayed Release (Dr/Ec) 81 mg PO QAM RF: 0 acetaminophen 325 mg Tablet 2 tab PO Q6H PRN (Reason: Pain) RF: 0 cholecalciferol (vitamin D3) 1,000 unit Capsule 1,000 units PO QAM RF: 0 cyanocobalamin (vitamin B-12) 1,000 mcg Tablet, Sublingual 500 mcg SUBLINGUAL QAM RF: 0 losartan 100 mg Tablet 100 mg PO QAM RF: 0 warfarin 5 mg Tablet 5 mg PO 2XWK RF: 0 amlodipine 2.5 mg Tablet 2.5 mg PO QAM RF: 0 atorvastatin [Lipitor] 40 mg Tablet 40 mg PO HS RF: 0 amiodarone 200 mg tablet 200 mg PO QAM RF: 0 metoprolol succinate 25 mg tablet extended release 24 hr 25 mg PO QAM RF: 0 escitalopram oxalate 20 mg tablet 20 mg PO QPM RF: 0 famotidine 20 mg tablet 20 mg PO BID RF: 0 levothyroxine 50 mcg tablet 50 mcg PO DAILYBB RF: 0 fluticasone propionate 50 mcg/actuation [place],Suspension 2 spray INTRANASAL DAILY PRN (Reason: Congestion) RF: 0 omeprazole 20 mg capsule,delayed release(DR/EC) 20 mg PO AMHS RF: 0 doxycycline hyclate 100 mg Capsule 100 mg PO BID Qty: 10 RF: 0 furosemide [Lasix] 20 mg tablet 20 mg PO DAILY PRN (Reason: edema) Qty: 10 RF: 0 cefdinir 300 mg capsule 300 mg PO BID 5 Days Qty: 10 RF: 0 warfarin 5 mg tablet 2.5 mg PO 5XWK RF: 0 Referrals Referrals: Irish Richard DO [Primary Care Provider] - Discharge Problem: GI bleed Qualifiers: GI bleed type/associated pathology: unspecified gastrointestinal hemorrhage type Qualified Code(s): K92.2 - Gastrointestinal hemorrhage, unspecified Anemia Qualifiers: Anemia type: unspecified type Qualified Code(s): D64.9 - Anemia, unspecified
[2021-05-25 13:49] LABS: Basophils # (auto) 0.02 K/uL (0-0.2); Basophils % (auto) 0.3 %; Eosinophils # (auto) 0.06 K/uL (0-0.5); Eosinophils % (auto) 0.8 %; Hematocrit (blood only) 35.2 % (37-47); Hemoglobin 11.4 g/dL (12.0-16.0); Lymphocytes # (auto) 1.71 K/uL (1.2-3.4); Lymphocytes % (auto) 23.6 %; Mean Corpuscular Hemoglobin 28.9 pg (25-34); Mean Corpuscular Hgb Conc 32.4 g/dL (32-36); Mean Corpuscular Volume 89.3 fL (80-100); Mean Platelet Volume 8.8 fL (7.4-10.4); Monocytes # (auto) 0.37 K/uL (0.11-0.59); Monocytes % (auto) 5.1 %; Neutrophils # (auto) 5.09 K/uL (1.4-6.5); Neutrophils % (auto) 70.2 %; Platelet Count 285 K/uL (130-400); RDW Coefficient of Variation 15.7 % (11.5-14.5); RDW Standard Deviation 51.5 fL (36.4-46.3); Red Blood Count 3.94 M/uL (4.2-5.4); White Blood Count 7.25 K/uL (4.8-10.8)
[2021-05-25 13:58] LABS: Prothrombin Time 20.1 Seconds (9.0-12.0)
[2021-05-25 14:07] LABS: Albumin Level 3.6 gm/dl (3.4-5.0); BUN Creatinine Ratio 18.8 (10-20); Bilirubin,Total 0.5 mg/dl (0.2-1.0); Calcium 8.8 mg/dl (8.5-10.1); Est GFR (African American) 80.5 ml/min; Est GFR (Non-African American) 69.4 ml/min; Globulin 3.5 gm/dl (2.5-4.0); Potassium 3.6 mmol/L (3.5-5.1); Total Protein 7.1 gm/dl (6.0-8.3)
[2021-05-25] MEDS ORDERED: PANTOprazole 80 MG in DEXTROSE 5% 100 ML IV STA (14:33)
--- NOTE | 2021-05-25 14:58 | History & Physical Report ---
Date of Service May 25, 2021 Assessment & Plan (1) Black stool: (2) GI bleed: (3) Community acquired pneumonia: (4) JALEN (obstructive sleep apnea): (5) History of pulmonary embolism: (6) Paroxysmal A-fib: (7) Chronic anticoagulation: Plan: Black stools, r/o gi bleeding- Trend H&H, iv PPI, monitor. INR 2, no need for reversal now. If more bleed or symptomatic or Hb drops, consider iv vitamin K and blood transfusion as indicated. Patient agreeable. Clear liquid diet, npo after midnight, GI eval. Hold coumadin for now, recheck INR in am. Recent PNA- continue cefdinir and doxy to complete antibiotic course Chronic diastolic CHF- euvolemic, on lasix prn, will hold for now. JALEN on CPAP HTN- on losartan, norvasc, toprol- continue with hold parameters GERD- On PPI, pepcid PAF- on coumadin, amiodarone, toprol H/o PE on coumadin Depression- on lexapro DVT prophylaxis- coumadin on hold, INR therapeutic Dispo- Observation Code status- Full code History of Present Illness Chief Complaint: Black stools Primary Care Provider: Irish Richard DO 70 year old male with history of JALEN, PAF, diastolic CHF, CKD3, HTN, stress induced cardiomyopathy, GERD, obesity who was discharged yesterday from the hospital on antibiotics for CAP presented to the ED today with black stools. States normal stool in the hospital but this morning at 10:15 am, she had a black stool which was followed by 2 more episodes of black stool. No sneha blood. No fever, chills, abdominal pain. Denies being on iron or peptobismol. She had a picture of the stool which she showed to me. In the ED, afebrile, hemodynamically stable. Hemoccult positive per ED physician. Hb stable. Labs stable. INR 2. Hospitalist service was consulted for admission. Allergies Allergy/AdvReac Type Severity Reaction Status Date / Time celecoxib Allergy Intermediate Hives Verified 05/25/21 15:04 latex Allergy Intermediate RASH Verified 05/25/21 15:04 lisinopril Allergy Intermediate Cough Verified 05/25/21 15:04 Home Medications Medication Instructions Recorded Confirmed Type acetaminophen 325 mg tablet 2 tab PO Q6H PRN 10/22/17 05/25/21 History aspirin 81 mg tablet,delayed 81 mg PO QAM 10/22/17 05/25/21 History release (Aspirin Low Dose) cholecalciferol (vitamin D3) 25 1,000 units PO QAM 10/22/17 05/25/21 History mcg (1,000 unit) capsule cyanocobalamin (vitamin B-12) 500 mcg SUBLINGUAL QAM 10/22/17 05/25/21 History 1,000 mcg sublingual tablet losartan 100 mg tablet 100 mg PO QAM 10/22/17 05/25/21 History warfarin 5 mg tablet 5 mg PO 2XWK 10/22/17 05/25/21 History amlodipine 2.5 mg tablet 2.5 mg PO QAM 07/02/18 05/25/21 History amiodarone 200 mg tablet 200 mg PO QAM 12/02/19 05/25/21 History atorvastatin 40 mg tablet (Lipitor) 40 mg PO HS 12/02/19 05/25/21 History metoprolol succinate 25 mg 25 mg PO QAM 12/02/19 05/25/21 History tablet,extended release 24 hr escitalopram oxalate 20 mg tablet 20 mg PO QPM 07/12/20 05/25/21 History famotidine 20 mg tablet 20 mg PO BID 07/12/20 05/25/21 History fluticasone propionate 50 2 spray INTRANASAL DAILY PRN 05/19/21 05/25/21 History mcg/actuation nasal spray,suspension levothyroxine 50 mcg tablet 50 mcg PO DAILYBB 05/19/21 05/25/21 History omeprazole 20 mg capsule,delayed 20 mg PO AMHS 05/19/21 05/25/21 History release cefdinir 300 mg capsule 300 mg PO BID 5 Days #10 cap 05/24/21 05/25/21 Rx doxycycline hyclate 100 mg capsule 100 mg PO BID #10 cap 05/24/21 05/25/21 Rx furosemide 20 mg tablet (Lasix) 20 mg PO DAILY PRN #10 tab 05/24/21 05/25/21 Rx warfarin 5 mg tablet 2.5 mg PO 5XWK 05/25/21 05/25/21 History Past Med/Surg History Medical History Atrial fibrillation Paroxysmal atrial fibrillation, on rhythm control strategy with dofetilide, Coumadin (entered by Dr Borges 10/22/17) CAD (coronary artery disease) Hx cardiac cath 2014: coronary arteries have diffuse minor irregularities Depression GERD (gastroesophageal reflux disease) H/O cholecystitis H/O cholecystitis HLD (hyperlipidemia) HTN (hypertension) Hx pulmonary embolism 2014 NSTEMI (non-ST elevated myocardial infarction) Obesity JALEN (obstructive sleep apnea) Paroxysmal atrial fibrillation Stress-induced cardiomyopathy Takotsubo cardiomyopathy Surgical History H/O carpal tunnel repair H/O carpal tunnel repair H/O wisdom tooth extraction H/O: hysterectomy H/O: hysterectomy Hx of cardiac catheterization Hx of cardiac catheterization Angiographically normal coronary arteries, 10/22/17, [facility]. History, echocardiogram, cardiac catheterization data consistent with atypical presentation of stress-induced cardiomyopathy with normal apical wall motion, and hypokinesis to akinesis of the basal left ventricular myocardial segments Family History Father , in 60's of myocardial infarction Myocardial infarction, Onset Age: 62 Brother Myocardial infarction, Onset Age: 68 Other Diabetes Hypertension Social History Smoking Status: Never smoker Second Hand Exposure: No; Hx Alcohol Use: No Hx Substance Use: No Preferred Language: Tuvaluan Communication Ability: Effective Visual Impairment: Limited Hearing Ability: Normal Newspaper Manager Required: No Beliefs That Will Affect Care: None Current Living Situation: Alone Feels Safe at Home: Yes Assistive Devices: Walker Physical Exam Physical Exam: General: Obese, Lying comfortably in bed, not in distress, on room air HEENT: EOMI, HUBER, MMM Chest: Clear breath sounds bilaterally, no wheezes or crackles CVS: regular, normal heart sounds, no murmur Abdomen: Soft, non tender, not distended, normal bowel sounds Neuro: Awake, alert, oriented, conversing well, non focal Extremities: No cyanosis, clubbing or edema Results & Data Results & Data ([facility]) Vital Signs (Past 12 Hours) Vital Signs Temp Pulse Resp BP Pulse Ox 05/25/21 13:21 92 05/25/21 13:02 36 C L 88 22 166/84 H 97 Laboratory Results Short CBC 05/25/21 Range/Units 13:30 WBC 7.25 (4.8-10.8) K/uL Hgb 11.4 L (12.0-16.0) g/dL Hct 35.2 L (37-47) % Plt Count 285 (130-400) K/uL BMP 05/25/21 13:30 Sodium 141 Potassium 3.6 Chloride 106 Carbon Dioxide 26 BUN 16 Creatinine 0.85 Glucose 97 Calcium 8.8 Liver Function 05/25/21 Range/Units 13:30 Total Bilirubin 0.5 (0.2-1.0) mg/dl AST 15 (13-39) U/L ALT 13 (7-52) U/L Alkaline Phosphatase 121 H (34-104) U/L Albumin 3.6 (3.4-5.0) gm/dl Urine 05/25/21 Range/Units 14:50 Urine Color Yellow Urine Appearance Clear (Clear) Urine pH 5.5 (4.5-7.5) Ur Specific [place] 1.011 (1.000-1.030) Urine Protein Negative (Negative) Urine Glucose (UA) Negative (Negative)
[2021-05-25 15:16] LABS: Appearance Urine Clear (Clear); Bacteria Urine Automated Negative (Negative); Bilirubin Urine Negative (Negative); Blood Urine 1+ (Negative); Cast Urine Automated 0 /lpf (0-5); Color Urine Yellow; Epithelial Cell Urine Auto 20-30 /lpf (0-5); Glucose Urine UA Negative (Negative); Ketones Urine Negative (Negative); Leukocyte Esterase Urine Trace (Negative); Nitrite Urine Negative (Negative); Protein Urine Negative (Negative); RBC Urine Automated 0-4 /hpf (0-4); Specific Gravity Urine 1.011 (1.000-1.030); Urobilinogen Urine Negative (Negative); pH Urine 5.5 (4.5-7.5)
[2021-05-25] MEDS ORDERED: FLUTICASONE PROPIONATE NA SPR 16 GM BTL PRN (20:17)
[2021-05-25 20:48] LABS: Hemoglobin 11.7 g/dL (12.0-16.0)
[2021-05-25] MEDS: ESCITALOPRAM OXALATE 20 MG TAB PO SCH (21:27)
[2021-05-25] MEDS: DOXYCYCLINE HYCLATE 100 MG CAP PO SCH (21:28)
[2021-05-25] MEDS: ATORVASTATIN 40 MG TAB PO SCH (21:28)
[2021-05-25] MEDS: CEFDINIR 300 MG CAP PO SCH (21:28)
[2021-05-25] MEDS: FAMOTIDINE 20 MG TAB PO SCH (21:28)
[2021-05-25] MEDS: ACETAMINOPHEN 325 MG TAB PO PRN (21:29)
[2021-05-25] MEDS: PANTOprazole 40 MG in SYRINGE 0 ML IV SCH (21:33)
[2021-05-26 02:30] LABS: Basophils # (auto) 0.01 K/uL (0-0.2); Basophils % (auto) 0.2 %; Eosinophils # (auto) 0.09 K/uL (0-0.5); Eosinophils % (auto) 1.6 %; Hematocrit (blood only) 33.9 % (37-47); Hemoglobin 10.7 g/dL (12.0-16.0); Immature Granulocytes # (auto) 0.01 K/uL (0.00-0.02); Immature Granulocytes % (auto) 0.2 %; Lymphocytes # (auto) 1.66 K/uL (1.2-3.4); Lymphocytes % (auto) 28.9 %; Mean Corpuscular Hemoglobin 28.3 pg (25-34); Mean Corpuscular Hgb Conc 31.6 g/dL (32-36); Mean Corpuscular Volume 89.7 fL (80-100); Mean Platelet Volume 8.8 fL (7.4-10.4); Monocytes # (auto) 0.39 K/uL (0.11-0.59); Monocytes % (auto) 6.8 %; Neutrophils # (auto) 3.58 K/uL (1.4-6.5); Neutrophils % (auto) 62.3 %; Platelet Count 220 K/uL (130-400); RDW Coefficient of Variation 15.7 % (11.5-14.5); RDW Standard Deviation 50.9 fL (36.4-46.3); Red Blood Count 3.78 M/uL (4.2-5.4); White Blood Count 5.74 K/uL (4.8-10.8)
[2021-05-26 02:37] LABS: Prothrombin Time 20.8 Seconds (9.0-12.0)
[2021-05-26 02:44] LABS: BUN Creatinine Ratio 17.3 (10-20); Calcium 8.4 mg/dl (8.5-10.1); Creatinine Clr Calc Pharmacy 99.1 ml/min; Est GFR (African American) 93.6 ml/min; Est GFR (Non-African American) 80.8 ml/min; Potassium 3.2 mmol/L (3.5-5.1)
[2021-05-26] MEDS: LEVOTHYROXINE SODIUM 50 MCG TABLET PO SCH (06:32)
[2021-05-26] MEDS: FAMOTIDINE 20 MG TAB PO SCH ×2 (07:34→20:56)
[2021-05-26] MEDS: CEFDINIR 300 MG CAP PO SCH ×2 (07:34→20:55)
[2021-05-26] MEDS: DOXYCYCLINE HYCLATE 100 MG CAP PO SCH ×2 (07:34→20:55)
[2021-05-26] MEDS: amLODIPine BESYLATE 5 MG TAB PO SCH (07:35)
[2021-05-26] MEDS: AMIODARONE 200 MG TAB PO SCH (07:35)
[2021-05-26] MEDS: METOPROLOL SUCC 25MG EXT REL TAB PO SCH (07:37)
[2021-05-26] MEDS: LOSARTAN POTASSIUM 50 MG TAB PO SCH (07:38)
[2021-05-26] MEDS: PANTOprazole 40 MG in SYRINGE 0 ML IV SCH ×2 (07:40→20:55)
[2021-05-26] MEDS ORDERED: POTASSIUM CHLORIDE CRTAB 20 MEQ TABCR PO ONE (08:24)
[2021-05-26 08:40] LABS: Hematocrit (blood only) 33.3 % (37-47); Hemoglobin 10.8 g/dL (12.0-16.0)
--- NOTE | 2021-05-26 10:49 | Electrocardiogram Report ---
Test Reason : Blood Pressure : / mmHG Vent. Rate : 075 BPM Atrial Rate : 075 BPM P-R Int : 204 ms QRS Dur : 090 ms QT Int : 458 ms P-R-T Axes : -15 009 -19 degrees QTc Int : 511 ms Atrial-paced rhythm Nonspecific ST and T wave abnormality Prolonged QT Abnormal ECG When compared with ECG of 19-MAY-2021 20:16, No significant change was found Confirmed by Daniel Grant ([id number]) on 05/26/2021 10:48:42 AM Referred By: REFERRED SELF Confirmed By:Daniel Grant
[2021-05-26] MEDS: ACETAMINOPHEN 325 MG TAB PO PRN (13:07)
--- NOTE | 2021-05-26 14:07 | Hospitalist Progress Note ---
Date of Service May 26, 2021 Assessment & Plan (1) Black stool: (2) GI bleed: (3) Community acquired pneumonia: (4) JALEN (obstructive sleep apnea): (5) History of pulmonary embolism: (6) Paroxysmal A-fib: (7) Chronic anticoagulation: Plan: Melena H/O Peptic Ulcer disease in the past as per patient Continue PPI N.p.o. after midnight for EGD tomorrow Clear liquid diet today Appreciate GI input Monitor H&H and transfuse PRBCs as needed Will consider reversing INR if has recurrence of bleeding Recent Pneumonia Continue cefdinir and doxycycline to complete the course Chronic Diastolic CHF Euvolemic currently on lasix prn hold lasix for now. JALEN on CPAP HTN on losartan, Norvasc, Toprol GERD On PPI, pepcid PAF Continue amiodarone, beta-jona Coumadin held secondary to GI bleed H/o PE Coumadin held Depression on lexapro DVT Px: SCDs Re: GI bleed INR therapeutic Code status Full code Admission and Anticipated Discharge Date Admission Date: May 25, 2021 Subjective Patient is seen and examined at bedside States feeling tired today Denies any blood in stools today Cough continues to improve since prior hospitalization Denies any chest pain, shortness of breath, dizziness, nausea, abdominal pain Planned for EGD tomorrow Review of Systems Review of Systems: All systems reviewed & are unremarkable except as noted in Subjective Physical Exam Physical Exam: Physical Exam: Vitals signs as noted above General Appearance:Morbidly Obese, no apparent distress Head: normocephalic, Atraumatic Eyes: normal inspection, EOMI Neck: supple, Trachea midline Respiratory/Chest: Normal breath sounds, CTA Cardiovascular: S1, S2, No murmur Abdomen/GI:Soft, Non tender, Bowel sounds present Extremities/Musculoskeletal:normal inspection, no edema Neurologic/Psych:AAOX3, grossly no focal neurological deficits Skin: normal color, warm Results & Data Results & Data ([facility]) Vital Signs (Past 12 Hours) Vital Signs Temp Pulse Pulse Resp BP Pulse Ox 05/26/21 10:59 36.5 C 88 22 142/74 H 91 05/26/21 06:41 37.0 C 61 20 148/68 H 94 05/26/21 04:15 84 05/26/21 04:00 36.9 C 60 18 142/70 H 93 05/26/21 03:44 62 18 91 05/26/21 02:05 64 20 92 Laboratory Results Short CBC 05/25/21 05/26/21 05/26/21 Range/Units 20:38 02:12 08:30 WBC 5.74 (4.8-10.8) K/uL Hgb 11.7 L 10.7 L 10.8 L (12.0-16.0) g/dL Hct 36.0 L 33.9 L 33.3 L (37-47) % Plt Count 220 (130-400) K/uL BMP 05/25/21 05/26/21 13:30 02:12 Sodium 141 142 Potassium 3.6 3.2 L Chloride 106 107 Carbon Dioxide 26 27 BUN 16 13 Creatinine 0.85 0.75 Glucose 97 81 Calcium 8.8 8.4 L Liver Function 05/25/21 Range/Units 13:30 Total Bilirubin 0.5 (0.2-1.0) mg/dl AST 15 (13-39) U/L ALT 13 (7-52) U/L Alkaline Phosphatase 121 H (34-104) U/L Albumin 3.6 (3.4-5.0) gm/dl Urine 05/25/21 Range/Units 14:50 Urine Color Yellow Urine Appearance Clear (Clear) Urine pH 5.5 (4.5-7.5) Ur Specific [place] 1.011 (1.000-1.030) Urine Protein Negative (Negative) Urine Glucose (UA) Negative (Negative)
[2021-05-26 14:43] LABS: Hematocrit (blood only) 33.7 % (37-47)
[2021-05-26] MEDS ORDERED: MICONAZOLE NITRATE POWDER 43 GM EXT PRN (18:38)
--- NOTE | 2021-05-26 18:49 | Gastrointestinal Consultation ---
Date of Consultation May 26, 2021 Assessment & Plan (1) GI bleed: 70 yo female with multiple comorbidities including recent pneumonia (completed abx and not requiring O2) here with complaints of several episode of melena at home and a drop in her hgb. Hemodynamically stable. Stool [place] today was brown and loose. - OK to allow her to eat today. - Hold anticoagulants. - Follow H/H. - EGD tomorrow. (2) Chronic anticoagulation: (3) Anemia: (4) Black stool: History of Present Illness Reason for Consultation: melena Attending Physician: Misael Ward MD History of Present Illness 70 yo female with JALEN, CAD, h/o PE, AF on Coumadin and recent admission for pneumonia admitted with complaints of melena at home for a few days prior to admission. No Melena since admission. Her hgb in 07/06 was 13.6. On admission hgb 10.8 and 10.7 today. BUN is not significantly elevated. She tells me she was seen by and was supposed to have an EGD and maybe a colonoscopy in February but had to cancel her appt. No abd pain. Denies any NSAID use. Allergies Allergy/AdvReac Type Severity Reaction Status Date / Time celecoxib Allergy Intermediate Hives Verified 05/25/21 15:04 latex Allergy Intermediate RASH Verified 05/25/21 15:04 lisinopril Allergy Intermediate Cough Verified 05/25/21 15:04 Home Medications Medication Instructions Recorded Confirmed Type acetaminophen 325 mg tablet 2 tab PO Q6H PRN 10/22/17 05/25/21 History aspirin 81 mg tablet,delayed 81 mg PO QAM 10/22/17 05/25/21 History release (Aspirin Low Dose) cholecalciferol (vitamin D3) 25 1,000 units PO QAM 10/22/17 05/25/21 History mcg (1,000 unit) capsule cyanocobalamin (vitamin B-12) 500 mcg SUBLINGUAL QAM 10/22/17 05/25/21 History 1,000 mcg sublingual tablet losartan 100 mg tablet 100 mg PO QAM 10/22/17 05/25/21 History warfarin 5 mg tablet 5 mg PO 2XWK 10/22/17 05/25/21 History amlodipine 2.5 mg tablet 2.5 mg PO QAM 07/02/18 05/25/21 History amiodarone 200 mg tablet 200 mg PO QAM 12/02/19 05/25/21 History atorvastatin 40 mg tablet (Lipitor) 40 mg PO HS 12/02/19 05/25/21 History metoprolol succinate 25 mg 25 mg PO QAM 12/02/19 05/25/21 History tablet,extended release 24 hr escitalopram oxalate 20 mg tablet 20 mg PO QPM 07/12/20 05/25/21 History famotidine 20 mg tablet 20 mg PO BID 07/12/20 05/25/21 History fluticasone propionate 50 2 spray INTRANASAL DAILY PRN 05/19/21 05/25/21 History mcg/actuation nasal spray,suspension levothyroxine 50 mcg tablet 50 mcg PO DAILYBB 05/19/21 05/25/21 History omeprazole 20 mg capsule,delayed 20 mg PO AMHS 05/19/21 05/25/21 History release cefdinir 300 mg capsule 300 mg PO BID 5 Days #10 cap 05/24/21 05/25/21 Rx doxycycline hyclate 100 mg capsule 100 mg PO BID #10 cap 05/24/21 05/25/21 Rx furosemide 20 mg tablet (Lasix) 20 mg PO DAILY PRN #10 tab 05/24/21 05/25/21 Rx warfarin 5 mg tablet 2.5 mg PO 5XWK 05/25/21 05/25/21 History Patient History Medical History Atrial fibrillation Paroxysmal atrial fibrillation, on rhythm control strategy with dofetilide, Coumadin (entered by Dr Borges 10/22/17) CAD (coronary artery disease) Hx cardiac cath 2014: coronary arteries have diffuse minor irregularities Depression GERD (gastroesophageal reflux disease) H/O cholecystitis H/O cholecystitis HLD (hyperlipidemia) HTN (hypertension) Hx pulmonary embolism 2014 NSTEMI (non-ST elevated myocardial infarction) Obesity JALEN (obstructive sleep apnea) Paroxysmal atrial fibrillation Stress-induced cardiomyopathy Takotsubo cardiomyopathy Surgical History H/O carpal tunnel repair H/O carpal tunnel repair H/O wisdom tooth extraction H/O: hysterectomy H/O: hysterectomy Hx of cardiac catheterization Hx of cardiac catheterization Angiographically normal coronary arteries, 10/22/17, [facility]. History, echocardiogram, cardiac catheterization data consistent with atypical presentation of stress-induced cardiomyopathy with normal apical wall motion, and hypokinesis to akinesis of the basal left ventricular myocardial segments Family History Father , in 60's of myocardial infarction Myocardial infarction, Onset Age: 62 Brother Myocardial infarction, Onset Age: 68 Other Diabetes Hypertension Social History Smoking Status: Former smoker Second Hand Exposure: No; Hx Alcohol Use: No Hx Substance Use: No Preferred Language: Monegasque Communication Ability: Effective Visual Impairment: Limited Hearing Ability: Normal [place] Blocker Required: No Beliefs That Will Affect Care: None Current Living Situation: Alone Current Living Situation Comment: appartment Other Information That Helps Us Care for You: No Feels Safe at Home: Yes Safety Concerns: Feels Safe At This Time Assistive Devices: Cane, CPAP and Walker Review of Systems Review of Systems: All systems reviewed & are unremarkable except as noted in HPI & below Physical Exam Constitutional: WD/WN, vitals as above Respiratory: normal respiratory effort, lungs clear to auscultation Cardiovascular: RRR, no murmur, no edema Gastrointestinal (Abdomen): normal bowel sounds, soft, nontender, no hepatosplenomegaly Results & Data ([facility]) Vital Signs (Past 12 Hours) Vital Signs Temp Pulse Pulse Resp BP Pulse Ox 05/26/21 18:00 36.6 C 66 20 144/74 H 94 05/26/21 15:13 36.3 C L 65 20 117/70 91 05/26/21 14:23 61 05/26/21 10:59 36.5 C 88 22 142/74 H 91 05/26/21 06:41 37.0 C 61 20 148/68 H 94 (1) GI bleed GI bleed type/associated pathology: unspecified gastrointestinal hemorrhage type Qualified Code(s): K92.2 - Gastrointestinal hemorrhage, unspecified (2) Anemia Anemia type: unspecified type Qualified Code(s): D64.9 - Anemia, unspecified
[2021-05-26] MEDS: ESCITALOPRAM OXALATE 20 MG TAB PO SCH (20:55)
[2021-05-26] MEDS: ATORVASTATIN 40 MG TAB PO SCH (20:56)
[2021-05-27] MEDS: LEVOTHYROXINE SODIUM 50 MCG TABLET PO SCH (06:13)
[2021-05-27 06:15] LABS: Hematocrit (blood only) 34.5 % (37-47); Hemoglobin 11.3 g/dL (12.0-16.0); Mean Corpuscular Hemoglobin 29.2 pg (25-34); Mean Corpuscular Hgb Conc 32.8 g/dL (32-36); Mean Corpuscular Volume 89.1 fL (80-100); Mean Platelet Volume 8.9 fL (7.4-10.4); Platelet Count 282 K/uL (130-400); RDW Coefficient of Variation 15.9 % (11.5-14.5); RDW Standard Deviation 51.4 fL (36.4-46.3); Red Blood Count 3.87 M/uL (4.2-5.4); White Blood Count 5.91 K/uL (4.8-10.8)
[2021-05-27 06:37] LABS: Prothrombin Time 20.9 Seconds (9.0-12.0)
[2021-05-27 06:38] LABS: BUN Creatinine Ratio 12.6 (10-20); Calcium 8.3 mg/dl (8.5-10.1); Creatinine Clr Calc Pharmacy 85.1 ml/min; Est GFR (African American) 78.2 ml/min; Est GFR (Non-African American) 67.5 ml/min; Magnesium 1.8 mg/dl (1.7-2.4); Potassium 3.4 mmol/L (3.5-5.1)
[2021-05-27] MEDS ORDERED: POTASSIUM CHLORIDE CRTAB 20 MEQ TABCR PO ONE (07:45)
--- NOTE | 2021-05-27 08:06 | Anesthesiology Consultation ---
Date of Service May 27, 2021 Assessment & Plan Chart Review Chart Review: Acceptable Risk for Surgery Consults Requested none ASA ASA3 Proposed Anesthesia Anesthesia Type: MAC Risk / Benefits Reviewed With: PT / POA / Parent / Guardian, Accepts Plan and Informed Consent Obtained History Surgery Operation Date: 05/27/21 16:30 Proposed Procedures p Esophagogastroduodenoscopy Dr Maria - Carlos Maria MD Height/Weight Height: 5 ft 4 in Weight: 142.1 kg Allergies Allergy/AdvReac Type Severity Reaction Status Date / Time celecoxib Allergy Intermediate Hives Verified 05/25/21 15:04 latex Allergy Intermediate RASH Verified 05/25/21 15:04 lisinopril Allergy Intermediate Cough Verified 05/25/21 15:04 Medications Home Medications Medication Instructions Recorded Confirmed Last Taken acetaminophen 325 mg tablet 2 tab PO Q6H PRN 10/22/17 05/25/21 07/01/18 16:00 aspirin 81 mg tablet,delayed 81 mg PO QAM 10/22/17 05/25/21 05/19/21 release (Aspirin Low Dose) cholecalciferol (vitamin D3) 25 1,000 units PO QAM 10/22/17 05/25/21 05/19/21 mcg (1,000 unit) capsule cyanocobalamin (vitamin B-12) 500 mcg SUBLINGUAL QAM 10/22/17 05/25/21 05/19/21 1,000 mcg sublingual tablet losartan 100 mg tablet 100 mg PO QAM 10/22/17 05/25/21 05/19/21 warfarin 5 mg tablet 5 mg PO 2XWK 10/22/17 05/25/21 05/19/21 amlodipine 2.5 mg tablet 2.5 mg PO QAM 07/02/18 05/25/21 05/19/21 amiodarone 200 mg tablet 200 mg PO QAM 12/02/19 05/25/21 05/19/21 atorvastatin 40 mg tablet (Lipitor) 40 mg PO HS 12/02/19 05/25/21 05/19/21 metoprolol succinate 25 mg 25 mg PO QAM 12/02/19 05/25/21 05/19/21 tablet,extended release 24 hr escitalopram oxalate 20 mg tablet 20 mg PO QPM 07/12/20 05/25/21 05/19/21 famotidine 20 mg tablet 20 mg PO BID 07/12/20 05/25/21 05/19/21 fluticasone propionate 50 2 spray INTRANASAL DAILY PRN 05/19/21 05/25/21 Unknown mcg/actuation nasal spray,suspension levothyroxine 50 mcg tablet 50 mcg PO DAILYBB 05/19/21 05/25/21 05/19/21 omeprazole 20 mg capsule,delayed 20 mg PO AMHS 05/19/21 05/25/21 05/19/21 release cefdinir 300 mg capsule 300 mg PO BID 5 Days #10 cap 05/24/21 05/25/21 Unknown doxycycline hyclate 100 mg capsule 100 mg PO BID #10 cap 05/24/21 05/25/21 Unk nown furosemide 20 mg tablet (Lasix) 20 mg PO DAILY PRN #10 tab 05/24/21 05/25/21 Unknown warfarin 5 mg tablet 2.5 mg PO 5XWK 05/25/21 05/25/21 Unknown Active Medications Generic Name Dose Route Start Last Admin Trade Name Freq PRN Reason Stop Dose Admin Acetaminophen 650 mg 05/25/21 20:17 05/26/21 13:07 Acetaminophen 325 Mg Tab PO 06/24/21 20:16 650 mg Q6H PRN Administration Pain Amiodarone HCl 200 mg 05/26/21 09:00 05/26/21 07:35 Amiodarone 200 Mg Tab PO 06/25/21 08:59 200 mg QAM SAMI Administration Amlodipine Besylate 2.5 mg 05/26/21 09:00 05/26/21 07:35 Amlodipine Besylate 5 Mg Tab PO 06/25/21 08:59 2.5 mg QAM SAMI Administration Atorvastatin Calcium 40 mg 05/25/21 21:00 05/26/21 20:56 Atorvastatin 40 Mg Tab PO 06/24/21 20:59 40 mg HS SAMI Administration Cefdinir 300 mg 05/25/21 21:00 05/26/21 20:55 Cefdinir 300 Mg Cap PO 05/29/21 20:59 300 mg BID SAMI Administration Protocol Doxycycline Hyclate 100 mg 05/25/21 21:00 05/26/21 20:55 Doxycycline Hyclate 100 Mg Cap PO 05/29/21 20:59 100 mg BID SAMI Administration Protocol Escitalopram Oxalate 20 mg 05/25/21 21:00 05/26/21 20:55 Escitalopram Oxalate 20 Mg Tab PO 06/24/21 20:59 20 mg QPM SAMI Administration Famotidine 20 mg 05/25/21 21:00 05/26/21 20:56 Famotidine 20 Mg Tab PO 06/24/21 20:59 20 mg BID SAMI Administration Pantoprazole Sodium 40 mg/ 10 mls @ 5 mls/min 05/25/21 21:00 05/26/21 20:55 Syringe IV 06/24/21 20:59 5 mls/min BID SAMI Administration Levothyroxine Sodium 50 mcg 05/26/21 06:30 05/27/21 06:13 Levothyroxine Sodium 50 Mcg Tablet PO 06/25/21 06:29 Not Given DAILYBB SAMI Losartan Potassium 100 mg 05/26/21 09:00 05/26/21 07:38 Losartan Potassium 50 Mg Tab PO 06/25/21 08:59 100 mg QAM SAMI Administration Metoprolol Succinate 25 mg 05/26/21 09:00 05/26/21 07:37 Metoprolol Succ 25mg Ext Rel Tab PO 06/25/21 08:59 25 mg QAM SMAI Administration NPO Date Last Intake of Fluids: 05/27/21 Time Last Intake of Fluids: 00:01 Date Last Intake of Solids: 05/27/21 Time Last Intake of Solids: 00:01 Past Medical History Medical History Atrial fibrillation Paroxysmal atrial fibrillation, on rhythm control strategy with dofetilide, Coumadin (entered by Dr Borges 10/22/17) CAD (coronary artery disease) Hx cardiac cath 2015: coronary arteries have diffuse minor irregularities Depression GERD (gastroesophageal reflux disease) H/O cholecystitis H/O cholecystitis HLD (hyperlipidemia) HTN (hypertension) Hx pulmonary embolism 2014 NSTEMI (non-ST elevated myocardial infarction) Obesity JALEN (obstructive sleep apnea) Paroxysmal atrial fibrillation Stress-induced cardiomyopathy Takotsubo cardiomyopathy BIPAP HS Exercise / Class Metabolic Activity III < 4 Walking/Shop/Light housework Past Family History Family History Father , in 60's of myocardial infarction Myocardial infarction, Onset Age: 62 Brother Myocardial infarction, Onset Age: 68 Other Diabetes Hypertension Past Surgical History Surgical History H/O carpal tunnel repair H/O carpal tunnel repair H/O wisdom tooth extraction H/O: hysterectomy H/O: hysterectomy Hx of cardiac catheterization Hx of cardiac catheterization Angiographically normal coronary arteries, 10/22/17, [facility]. History, echocardiogram, cardiac catheterization data consistent with atypical presentation of stress-induced cardiomyopathy with normal apical wall motion, and hypokinesis to akinesis of the basal left ventricular myocardial segments Past Anesthesia History No Hx of Anesthesia Complications and No Family Hx of Anesthesia Complications History of PONV No Hx of PONV and No Hx of Motion Sickness Social History Smoking Status: Former smoker Hx Alcohol Use: No Hx Substance Use: No substance use type: does not use Physical Exam Vital Signs Last Vital Signs Temp 36.8 C 05/27/21 03:00 Pulse 60 05/27/21 08:00 Resp 18 05/27/21 08:00 BP 123/73 05/27/21 08:00 Pulse Ox 92 05/27/21 08:00 Constitutional + morbidly obese ENMT Mouth: + dentition abnormality (edent upper, 6 lower teeth remain. ok repair); no TMJ abnormality Thyromental Distance: > or= 3.5 Finger Breadths Mallampati Class: III Neck normal visual inspection, trachea midline, + short neck and + thick neck; neck extension not limited Respiratory normal respiratory effort Auscultation: lungs clear to auscultation bilaterally Cardiovascular Rate/Rhythm: regular rate and regular rhythm Heart Sounds: no murmur Chest (Breasts) Chest: + pacemaker (left ant chest wall) Musculoskeletal Spine: normal cervical ROM Extremities: full ROM of extremities Neurologic moves all extremities Psychiatric Orientation: alert and oriented x 3 Testing Laboratory Results 05/27/21 05:44 05/27/21 05:44 PT 20.9 Seconds (9.0-12.0) H 05/27/21 05:44 INR 2.0 (0.9-1.1) H 05/27/21 05:44 Urine Color Yellow 05/25/21 14:50 Urine Appearance Clear (Clear) 05/25/21 14:50 Urine pH 5.5 (4.5-7.5) 05/25/21 14:50 Ur Specific [place] 1.011 (1.000-1.030) 05/25/21 14:50 Urine Protein Negative (Negative) 05/25/21 14:50 Urine Glucose (UA) Negative (Negative) 05/25/21 14:50 Urine Ketones Negative (Negative) 05/25/21 14:50 Urine Nitrite Negative (Negative) 05/25/21 14:50 Ur Leukocyte Esterase Trace (Negative) H 05/25/21 14:50 Urine WBC (Auto) 1-5 /hpf (0-5) 05/25/21 14:50 Urine RBC (Auto) 0-4 /hpf (0-4) 05/25/21 14:50 U Hyaline Cast (Auto) 0 /lpf (0-5) 05/25/21 14:50 U Epithel Cells (Auto) 20-30 /lpf (0-5) H 05/25/21 14:50 Urine Bacteria (Auto) Negative (Negative) 05/25/21 14:50 Blood Type O Positive 05/25/21 13:32 Antibody Screen NEGATIVE 05/25/21 13:32 Electrocardiogram Date: 05/25/21 Findings: + NSR @ (A paced @75bpm) and + NSST changes [id number] Chest X-Ray Date: 05/19/21 Findings: + NAD and + cardiomegaly R lung airspace opacities Echocardiogram Date: 05/20/21 EF: 60-65 LV Function: normal RWMA: + none Other Findings: + LVH (mild) Valvular Disease: + no significant valvular disease
[2021-05-27] MEDS ORDERED: LIDOCAINE 2% 2 ML VIAL/AMP(20MG/ML) INFIL ONE ×2 (08:13→08:50)
[2021-05-27] MEDS ORDERED: PROPOFOL IV EMULSION 10 MG/ML 20 ML VIAL IV ONE (08:13)
--- NOTE | 2021-05-27 08:33 | Gastroenterology Progress Note ---
Date of Service May 27, 2021 Assessment & Plan (1) Melena: Plan: plan for EGD today Admission and Anticipated Discharge Date Admission Date: May 25, 2021 Subjective Doing well, orange stool, no melena Physical Exam Constitutional: WD/WN, vitals as above Cardiovascular: RRR, no murmur, no edema Gastrointestinal (Abdomen): normal bowel sounds, soft, nontender, no hepatosplenomegaly Results & Data ([facility]) Vital Signs (Past 12 Hours) Vital Signs Temp Pulse Pulse Resp BP Pulse Ox 05/27/21 08:13 36.3 C L 61 18 159/76 H 95 05/27/21 08:00 60 18 123/73 92 05/27/21 03:45 76 20 91 05/27/21 03:00 36.8 C 75 18 121/67 91 05/26/21 22:52 36.7 C 60 20 120/57 L 94 05/26/21 21:00 81 22 91
[2021-05-27] MEDS ORDERED: PHYTONADIONE 5 MG in DEXTROSE 5% 50 ML IV ONE (08:45)
--- NOTE | 2021-05-27 08:54 | GI REPORT ---
Patient Name: Barbara aBnerjee Procedure Date: 05/27/2021 8:20 AM Date of : 1950 Admit Type: Inpatient Age: 70 Gender: Female Attending MD: Carlos Maria MD Procedure: Upper GI endoscopy Providers: Carlos Maria MD Referring MD: Misael Ward Md Indications: Melena Medicines: Monitored Anesthesia Care Complications: No immediate complications. Estimated blood loss: None. Estimated Blood Loss: Estimated blood loss: none. Procedure: Pre-Anesthesia Assessment: - Pre-Anesthesia Assessment: - Prior to the procedure, a History and Physical was performed, and patient medications, allergies and sensitivities were reviewed. The patient's tolerance of previous anesthesia was reviewed. Please see [facility] for complete details. - The risks and benefits of the procedure and the sedation options and risks were discussed with the patient. All questions were answered and informed consent was obtained. - Patient identification and proposed procedure were verified prior to the procedure by the physician and the nurse. The procedure was verified in the pre-procedure area in the procedure room. After obtaining informed consent, the endoscope was passed carefully and meticuously under direct vision and only advanced when the lumen was clearly identified, C02 insuflation was utilized throughout the entirity of the procedure. Throughout the procedure, the patient's blood pressure, pulse, and oxygen saturations were monitored continuously. After obtaining informed consent, the endoscope was passed under direct vision. Throughout the procedure, the patient's blood pressure, pulse, and oxygen saturations were monitored continuously. The Endoscope was introduced through the mouth, and advanced to the second part of duodenum. The upper GI endoscopy was accomplished without difficulty. The patient tolerated the procedure well. Findings: The examined esophagus was normal. Localized mild inflammation characterized by erosions was found in the gastric antrum. Biopsies were taken with a cold forceps for Helicobacter pylori testing. The pathology specimen was placed into Bottle A. The examined duodenum was normal. No signs of bleeding or recent bleeding. Bilious fluid in the stomach and duodenum. Impression: - Normal esophagus. - Gastritis. Biopsied. - Normal examined duodenum. Recommendation: - [facility]. - Use Prilosec (omeprazole) 40 mg PO daily. - Ok for diet, no signs of bleeding can restart coumadin - Outpatient colonoscopy Carlos Maria MD 05/27/2021 8:54:07 AM This report has been signed electronically. Note Initiated On: 05/27/2021 8:20 AM Number of Addenda: 0 I attest to the content of the Intraoperative Record and orders documented therein, exceptions below {[id number]}
--- NOTE | 2021-05-27 09:04 | Anesthesiology Progress Note ---
Date of Service May 27, 2021 Anesthesia Post Procedure Vital Signs Vital Signs: Temp Pulse Pulse Resp BP Pulse Ox 05/27/21 08:53 72 20 146/61 H 93 05/27/21 08:13 36.3 C L 61 18 159/76 H 95 05/27/21 08:00 60 18 123/73 92 05/27/21 03:45 76 20 91 05/27/21 03:00 36.8 C 75 18 121/67 91 05/26/21 22:52 36.7 C 60 20 120/57 L 94 05/26/21 21:00 81 22 91 05/26/21 18:00 36.6 C 66 20 144/74 H 94 05/26/21 15:13 36.3 C L 65 20 117/70 91 05/26/21 14:23 61 05/26/21 10:59 36.5 C 88 22 142/74 H 91 Pain Intensity Head: Pain Intensity: 0 Transfer of Care Handoff Completed per policy Notes Mental Status: alert / awake / arousable Patient Amnestic to Procedure: Yes Nausea / Vomiting: adequately controlled Pain: adequately controlled Airway Patency, RR, SpO2: stable & adequate BP & HR: stable & adequate Hydration State: stable & adequate Anesthetic Complications: no major complications apparent and Pt Satisfied with anesthetic care
[2021-05-27] MEDS: LOSARTAN POTASSIUM 50 MG TAB PO SCH (09:51)
[2021-05-27] MEDS: FAMOTIDINE 20 MG TAB PO SCH ×2 (09:51→20:00)
[2021-05-27] MEDS: PANTOprazole 40 MG in SYRINGE 0 ML IV SCH ×2 (09:51→20:03)
[2021-05-27] MEDS: AMIODARONE 200 MG TAB PO SCH (09:52)
[2021-05-27] MEDS: DOXYCYCLINE HYCLATE 100 MG CAP PO SCH ×2 (09:52→19:59)
[2021-05-27] MEDS: METOPROLOL SUCC 25MG EXT REL TAB PO SCH (09:53)
[2021-05-27] MEDS: amLODIPine BESYLATE 5 MG TAB PO SCH (09:53)
[2021-05-27] MEDS: CEFDINIR 300 MG CAP PO SCH ×2 (09:53→19:59)
--- NOTE | 2021-05-27 14:55 | Hospitalist Progress Note ---
Date of Service May 27, 2021 Assessment & Plan (1) Black stool: (2) GI bleed: (3) Community acquired pneumonia: (4) JALEN (obstructive sleep apnea): (5) History of pulmonary embolism: (6) Paroxysmal A-fib: (7) Chronic anticoagulation: Plan: Melena H/O Peptic Ulcer disease in the past as per patient S/P EGD:Normal esophagus. Gastritis. Biopsied. Normal examined duodenum. Continue PPI Appreciate GI input Monitor H&H and transfuse PRBCs as needed Hb Stable OK to resume Coumadin as per GI Plan for Colonoscopy as outpatient Recent Pneumonia Continue cefdinir and doxycycline to complete the course Chronic Diastolic CHF Euvolemic currently on lasix prn JALEN on CPAP HTN on losartan, Norvasc, Toprol GERD On PPI, pepcid PAF Continue amiodarone, beta-joan Coumadin held secondary to GI bleed Plan to resume Coumadin tomorrow H/o PE Coumadin held Depression on lexapro DVT Px: SCDs Re: GI bleed INR therapeutic Code status Full code Admission and Anticipated Discharge Date Admission Date: May 27, 2021 Subjective Patient is seen and examined at bedside States have blood tinged stool today Had EGD today Denies any chest pain, shortness of breath, dizziness, nausea, abdominal pain No other complaints Review of Systems Review of Systems: All systems reviewed & are unremarkable except as noted in Subjective Physical Exam Physical Exam: Physical Exam: Vitals signs as noted above General Appearance:Morbidly Obese, no apparent distress Head: normocephalic, Atraumatic Eyes: normal inspection, EOMI Neck: supple, Trachea midline Respiratory/Chest: Normal breath sounds, CTA Cardiovascular: S1, S2, No murmur Abdomen/GI:Soft, Non tender, Bowel sounds present Extremities/Musculoskeletal:normal inspection, no edema Neurologic/Psych:AAOX3, grossly no focal neurological deficits Skin: normal color, warm Results & Data Results & Data ([facility]) Vital Signs (Past 12 Hours) Vital Signs Temp Pulse Pulse Resp BP Pulse Ox 05/27/21 11:32 36.4 C L 83 18 159/81 H 94 05/27/21 09:42 36.4 C L 75 16 161/84 H 93 05/27/21 09:20 63 16 96 05/27/21 09:08 60 20 140/68 93 05/27/21 08:53 72 20 146/61 H 93 05/27/21 08:13 36.3 C L 61 18 159/76 H 95 05/27/21 08:00 60 18 123/73 92 05/27/21 06:16 62 05/27/21 03:45 76 20 91 05/27/21 03:00 36.8 C 75 18 121/67 91 Laboratory Results Short CBC 05/27/21 Range/Units 05:44 WBC 5.91 (4.8-10.8) K/uL Hgb 11.3 L (12.0-16.0) g/dL Hct 34.5 L (37-47) % Plt Count 282 (130-400) K/uL BMP 05/27/21 05:44 Sodium 143 Potassium 3.4 L Chloride 108 H Carbon Dioxide 27 BUN 11 Creatinine 0.87 Glucose 101 H Calcium 8.3 L
[2021-05-27] MEDS: ACETAMINOPHEN 325 MG TAB PO PRN (19:57)
[2021-05-27] MEDS: ATORVASTATIN 40 MG TAB PO SCH (20:00)
[2021-05-27] MEDS: ESCITALOPRAM OXALATE 20 MG TAB PO SCH (20:00)
[2021-05-28] MEDS: LEVOTHYROXINE SODIUM 50 MCG TABLET PO SCH (05:40)
[2021-05-28 08:01] LABS: Hematocrit (blood only) 37.7 % (37-47); Hemoglobin 11.9 g/dL (12.0-16.0); Mean Corpuscular Hemoglobin 28.7 pg (25-34); Mean Corpuscular Hgb Conc 31.6 g/dL (32-36); Mean Corpuscular Volume 90.8 fL (80-100); Mean Platelet Volume 9.3 fL (7.4-10.4); Platelet Count 300 K/uL (130-400); RDW Coefficient of Variation 16.3 % (11.5-14.5); Red Blood Count 4.15 M/uL (4.2-5.4); White Blood Count 6.17 K/uL (4.8-10.8)
[2021-05-28 08:09] LABS: INR 1.7 (0.9-1.1); Prothrombin Time 17.9 Seconds (9.0-12.0)
[2021-05-28] MEDS: DOXYCYCLINE HYCLATE 100 MG CAP PO SCH (08:49)
[2021-05-28] MEDS: CEFDINIR 300 MG CAP PO SCH (08:50)
[2021-05-28] MEDS: amLODIPine BESYLATE 5 MG TAB PO SCH (08:50)
[2021-05-28] MEDS: LOSARTAN POTASSIUM 50 MG TAB PO SCH (08:51)
[2021-05-28] MEDS: AMIODARONE 200 MG TAB PO SCH (08:52)
[2021-05-28] MEDS: FAMOTIDINE 20 MG TAB PO SCH (08:52)
[2021-05-28] MEDS: METOPROLOL SUCC 25MG EXT REL TAB PO SCH (08:52)
[2021-05-28] MEDS ORDERED: PANTOprazole 40 MG TAB PO SCH (09:00)
[2021-05-28 10:17] LABS: BUN Creatinine Ratio 18.6 (10-20); Calcium 8.6 mg/dl (8.5-10.1); Creatinine Clr Calc Pharmacy 76.6 ml/min; Est GFR (African American) 68.6 ml/min; Est GFR (Non-African American) 59.2 ml/min; Potassium 4.1 mmol/L (3.5-5.1)
--- NOTE | 2021-05-28 12:57 | Hospitalist Progress Note ---
Date of Service May 28, 2021 Assessment & Plan (1) Black stool: (2) GI bleed: (3) Community acquired pneumonia: (4) JALEN (obstructive sleep apnea): (5) History of pulmonary embolism: (6) Paroxysmal A-fib: (7) Chronic anticoagulation: Plan: Melena H/O Peptic Ulcer disease in the past as per patient S/P EGD:Normal esophagus. Gastritis. Biopsied. Normal examined duodenum. Pathology pending Continue PPI Appreciate GI input Monitor H&H and transfuse PRBCs as needed Hb Stable OK to resume Coumadin as per GI Plan for Colonoscopy as outpatient Needs follow up with GI upon discharge Recent Pneumonia Continue cefdinir and doxycycline to complete the course Chronic Diastolic CHF Euvolemic currently on lasix prn JALEN on CPAP HTN on losartan, Norvasc, Toprol GERD On PPI, pepcid PAF Continue amiodarone, beta-joan Coumadin held secondary to GI bleed Resume Coumadin today H/o PE On Coumadin Depression on lexapro DVT Px: SCDs Re: GI bleed Coumadin resumed Code status Full code Admission and Anticipated Discharge Date Admission Date: May 27, 2021 Subjective Patient is seen and examined at bedside Doing well today No recurrence of bleeding Denies any chest pain, shortness of breath, dizziness, nausea, abdominal pain Hb stable Plan to discharge home today Review of Systems Review of Systems: All systems reviewed & are unremarkable except as noted in Subjective Physical Exam Physical Exam: Physical Exam: Vitals signs as noted above General Appearance:Morbidly Obese, no apparent distress Head: normocephalic, Atraumatic Eyes: normal inspection, EOMI Neck: supple, Trachea midline Respiratory/Chest: Normal breath sounds, CTA Cardiovascular: S1, S2, No murmur Abdomen/GI:Soft, Non tender, Bowel sounds present Extremities/Musculoskeletal:normal inspection, no edema Neurologic/Psych:AAOX3, grossly no focal neurological deficits Skin: normal color, warm Results & Data Results & Data ([facility]) Vital Signs (Past 12 Hours) Vital Signs Temp Pulse Pulse Resp BP Pulse Ox 05/28/21 11:17 36.7 C 63 20 117/54 L 93 05/28/21 07:42 36.7 C 65 20 151/79 H 92 05/28/21 06:15 60 05/28/21 03:40 68 19 95 05/28/21 03:22 36.8 C 60 18 121/64 92 Laboratory Results Short CBC 05/28/21 Range/Units 07:12 WBC 6.17 (4.8-10.8) K/uL Hgb 11.9 L (12.0-16.0) g/dL Hct 37.7 (37-47) % Plt Count 300 (130-400) K/uL BMP 05/28/21 07:12 Sodium 144 Potassium 4.1 D Chloride 107 Carbon Dioxide 29 BUN 18 Creatinine 0.97 Glucose 100 H Calcium 8.6
--- NOTE | 2021-05-28 13:09 | Discharge Summary ---
Date of Service May 28, 2021 Admission HPI Per Admitting Provider 70 year old male with history of JALNE, PAF, diastolic CHF, CKD3, HTN, stress induced cardiomyopathy, GERD, obesity who was discharged yesterday from the hospital on antibiotics for CAP presented to the ED today with black stools. States normal stool in the hospital but this morning at 10:15 am, she had a black stool which was followed by 2 more episodes of black stool. No sneha blood. No fever, chills, abdominal pain. Denies being on iron or peptobismol. She had a picture of the stool which she showed to me. In the ED, afebrile, hemodynamically stable. Hemoccult positive per ED physician. Hb stable. Labs stable. INR 2. Hospitalist service was consulted for admission. Admission Exam Per Admitting Provider Physical Exam Physical Exam: General: Obese, Lying comfortably in bed, not in distress, on room air HEENT: EOMI, HUBER, MMM Chest: Clear breath sounds bilaterally, no wheezes or crackles CVS: regular, normal heart sounds, no murmur Abdomen: Soft, non tender, not distended, normal bowel sounds Neuro: Awake, alert, oriented, conversing well, non focal Extremities: No cyanosis, clubbing or edema Principal Diagnosis Gastritis Gastrointestinal bleeding Discharge Data Allergies Allergy/AdvReac Type Severity Reaction Status Date / Time celecoxib Allergy Intermediate Hives Verified 05/25/21 15:04 latex Allergy Intermediate RASH Verified 05/25/21 15:04 lisinopril Allergy Intermediate Cough Verified 05/25/21 15:04 Consultations 05/25/21 14:42 ED Decision to Admit Stat 05/25/21 22:00 Consult Gastroenterology Routine Procedures Performed Operation Date: 05/27/21 16:30 Actual Procedures p EGD Biopsy Cytology - Carlos Maria MD Hospital Course (1) Black stool: (2) GI bleed: (3) Community acquired pneumonia: (4) JALEN (obstructive sleep apnea): (5) History of pulmonary embolism: (6) Paroxysmal A-fib: (7) Chronic anticoagulation: Melena H/O Peptic Ulcer disease in the past as per patient S/P EGD:Normal esophagus. Gastritis. Biopsied. Normal examined duodenum. Pathology pending Continue PPI Appreciate GI input Monitor H&H and transfuse PRBCs as needed Hb Stable OK to resume Coumadin as per GI Plan for Colonoscopy as outpatient Needs follow up with GI upon discharge Recent Pneumonia Continue cefdinir and doxycycline to complete the course Chronic Diastolic CHF Euvolemic currently on lasix prn JALEN on CPAP HTN on losartan, Norvasc, Toprol GERD On PPI, pepcid PAF Continue amiodarone, beta-joan Coumadin held secondary to GI bleed Resume Coumadin today H/o PE On Coumadin Depression on lexapro DVT Px: SCDs Re: GI bleed Coumadin resumed Code status Full code Total Time Total Time Spent Total Time Spent (In Minutes): 44 minutes Discharge Plan Discharge Items Patient Disposition: Home - Self-Care Reason For Visit: BLACK STOOLS Discharge Diagnosis: Gastritis Gastrointestinal bleeding Activity: Per Instructions section Exercise/Sports: Gradually increase as tolerated Non-emergency contact: Primary Care Provider and Chemical Preparer Call non-emergency contact if: you have any medication questions, your symptoms worsen, your pain is concerning for you and you have a fever Follow-up/Referrals: Irish Richard DO [Primary Care Provider] - (Date & Time 05/29/2021 11:10 AM Provider Irish Richard DO Department [facility] ) Diet: Heart Healthy Addtl Attending Provider Instructions: Follow-up with your primary care physician on 05/29/2021 11:10 AM Follow-up with your narrow fabric calenderer for Colonoscopy as outpatient Follow up with [facility] for management for PT/INR and Coumadin dosing. -- continue taking Proton pump inhibitor (Omeprazole) twice a day as previously prescribed. --Continue cefdinir and doxycycline for 1 more day to complete the course of pneumonia --Your biopsy results from endoscopy are pending at the time of discharge. Follow-up with your physician for results. Do not take group of medications belonging to NSAIDs group -can cause worsening of your risk for bleeding. List Of these medications includes but not limited to: Diclofenac Ibuprofen, Motrin, Advil Toradol,ketorolac Naproxen, Aleve, Naprosyn You can take Tylenol as needed for pain or fever When buying gwit-dvn-xalrbey pain medications please consult with pharmacy if you are not sure regarding ingredients, as a lot of the pain medications have combination of NSAIDs and Tylenol. Seek immediate medical attention if your symptoms reoccur or worsen Please take all medications as instructed on discharge list below. Please call if you have any questions or problems. You can reach a [facility] hospitalist on duty at [facility] 24 hours a day by calling [phone] Pending Studies at Discharge: Yes Studies:: Biopsy results Stand-Alone Forms: My [facility] Health, Smoking Cessation Medications and DC Order Prescriptions: Continued aspirin [Aspirin Low Dose] 81 mg Tablet,Delayed Release (Dr/Ec) 81 mg PO QAM RF: 0 acetaminophen 325 mg Tablet 2 tab PO Q6H PRN (Reason: Pain) RF: 0 cholecalciferol (vitamin D3) 1,000 unit Capsule 1,000 units PO QAM RF: 0 cyanocobalamin (vitamin B-12) 1,000 mcg Tablet, Sublingual 500 mcg SUBLINGUAL QAM RF: 0 losartan 100 mg Tablet 100 mg PO QAM RF: 0 warfarin 5 mg Tablet 5 mg PO 2XWK RF: 0 amlodipine 2.5 mg Tablet 2.5 mg PO QAM RF: 0 atorvastatin [Lipitor] 40 mg Tablet 40 mg PO HS RF: 0 amiodarone 200 mg tablet 200 mg PO QAM RF: 0 metoprolol succinate 25 mg tablet extended release 24 hr 25 mg PO QAM RF: 0 escitalopram oxalate 20 mg tablet 20 mg PO QPM RF: 0 famotidine 20 mg tablet 20 mg PO BID RF: 0 levothyroxine 50 mcg tablet 50 mcg PO DAILYBB RF: 0 fluticasone propionate 50 mcg/actuation Viola,Suspension 2 spray INTRANASAL DAILY PRN (Reason: Congestion) RF: 0 omeprazole 20 mg capsule,delayed release(DR/EC) 20 mg PO AMHS RF: 0 doxycycline hyclate 100 mg Capsule 100 mg PO BID Qty: 10 RF: 0 furosemide [Lasix] 20 mg tablet 20 mg PO DAILY PRN (Reason: edema) Qty: 10 RF: 0 cefdinir 300 mg capsule 300 mg PO BID 5 Days Qty: 10 RF: 0 warfarin 5 mg tablet 2.5 mg PO 5XWK RF: 0 Discharge Orders: Discharge Order (Routine); Ordered 05/28/21 Ordered By: Misael Ward Admission Data Admit Date/Time: 05/27/21 14:00 Attending Provider: Misael Ward Admit Provider: Davis Kaiser Primary Care Provider: Irish Richard Other Providers: Larry Monique ; Janki Whiting ; Ulysses Cervantes ; Moon Hanson ; Carlos Maria ; Jong Myers ; Noemy Arechiga ; William Nettles ; Lis Moore ; Liane Sunshine ; Ara Coombs ; Sowmya Villafana ; Yancy Olivarez ; Davis Kaiser Other Interventions: Discharge Summary Assessment (RN) Last Done: 05/27/21 09:20
[2021-05-28] MEDS ORDERED: WARFARIN SOD 2.5 MG TAB PO SCH (16:00)
[2021-05-31] MEDS ORDERED: WARFARIN SOD 5 MG TAB PO SCH (16:00)
--- NOTE | 2021-06-04 11:50 | Coding Query ---
CODING QUERY To promote full compliance with coding requirements relating to patient care, provider participation is requested in all cases of turbine measurements engineer uncertainty. Please assist us with the question(s) below: Coding Question(s): Pt adm with Melena. EGD done with stomach biopsy during this admission. Please document , if known or suspected, the etiology of the melena. Thank you . Donell Macario [facility] Physician's Response(s): Likely Reactive gastropathy Principal Diagnosis: "that condition established after study, to be chiefly responsible for occasioning the admission of the patient to the hospital for care." Co-Existing Principal Diagnosis: "when two or more diagnoses equally meet the criteria for principal diagnosis as determined by the circumstances of admission, diagnostic work up, and/or therapy provided, and the Alphabetic Index, Tabular List, or another coding guideline does not provide sequencing direction, any one of the diagnoses may be sequenced first." "When the physician has documented what appears to be a current diagnosis in the body of the record, but has not included the diagnosis in the final diagnostic statement, the physician should be asked whether the diagnosis should be added." (Source Coding Clinic 2 QTR90. p3-4) [facility]
== END 2021-05-28 14:35 | disposition home or self-care (01) | DRG 377 ==
LOC: ED 13:00 → 2N 13:00 → SUATTDRO 16:06 → 2N 20:01
DX: Z88.8 Allergy status to other drugs, medicaments and biological substances; I49.5 Sick sinus syndrome; Z79.82 Long term (current) use of aspirin; I25.2 Old myocardial infarction; Z95.0 Presence of cardiac pacemaker; I50.32 Chronic diastolic (congestive) heart failure; D64.9 Anemia, unspecified; Z68.43 Body mass index [BMI] 50.0-59.9, adult; I13.0 Hypertensive heart and chronic kidney disease with heart failure and stage 1 through stage 4 chronic kidney disease, or unspecified chronic kidney disease; F32.A Depression, unspecified; K29.71 Gastritis, unspecified, with bleeding; I48.0 Paroxysmal atrial fibrillation; I25.10 Atherosclerotic heart disease of native coronary artery without angina pectoris; Z79.01 Long term (current) use of anticoagulants; Z86.711 Personal history of pulmonary embolism; Z91.040 Latex allergy status; K21.9 Gastro-esophageal reflux disease without esophagitis; J18.9 Pneumonia, unspecified organism; K31.89 Other diseases of stomach and duodenum; Z82.49 Family history of ischemic heart disease and other diseases of the circulatory system; G47.33 Obstructive sleep apnea (adult) (pediatric); E66.9 Obesity, unspecified; N18.30 Chronic kidney disease, stage 3 unspecified; Z79.890 Hormone replacement therapy

== ENCOUNTER 2021-09-04 18:30 | Inpatient (IN) ==
--- NOTE | 2021-09-04 20:09 | Emergency Department Note ---
History of Present Illness General Chief complaint: GI Assessment Stated complaint: BLACK STOOL Time Seen by Provider: 09/04/21 19:57 Source: patient Mode of arrival: ambulatory Limitations: no limitations History of Present Illness Maximum Pain Intensity: 8 Patient comes in with a complaint of black stool that started today. She had 3 bowel movements today that were all soft but not diarrhea the first 2 were nor mal and the third 1 was dark and melanotic. She has had this once before in May and was hospitalized and had gastritis she had upper GI done at the time she is supposed to have a follow-up colonoscopy but did not not ever get that done yet. She continues to be on Coumadin she has a history of PE in 2012 as well as chronic A. fib. She has had some abdominal back pain off and on for at least 3 weeks that feels diffusely and just comes and goes. No fever chills no chest pain or shortness of breath or lightheadedness or dizziness she is on no iron. She sees Dr. Tompkins as her primary care physician no lightheadedness or dizziness although she is felt a little tired. Home Medications Medication Instructions Recorded Confirmed Type acetaminophen 325 mg tablet 2 tab PO Q6H PRN Pain 10/22/17 09/04/21 History aspirin 81 mg tablet,delayed 81 mg PO QAM 10/22/17 09/04/21 History release (Vonda Low Dose Aspirin) cholecalciferol (vitamin D3) 25 1,000 units PO QAM 10/22/17 09/04/21 History mcg (1,000 unit) capsule cyanocobalamin (vitamin B-12) 1,000 mcg sublingual QAM 10/22/17 09/04/21 History 1,000 mcg sublingual tablet losartan 100 mg tablet 100 mg PO QAM 10/22/17 09/04/21 History warfarin 5 mg tablet See Rx Instructions .Route .COMPLEX 10/22/17 09/04/21 History amlodipine 2.5 mg tablet 2.5 mg PO QAM 07/02/18 09/04/21 History amiodarone 200 mg tablet 200 mg PO QAM 12/02/19 09/05/21 History atorvastatin 40 mg tablet (Lipitor) 40 mg PO HS 12/02/19 09/04/21 History metoprolol succinate 25 mg 25 mg PO QAM 12/02/19 09/04/21 History tablet,extended release 24 hr escitalopram oxalate 20 mg tablet 20 mg PO QPM 07/12/20 09/04/21 History famotidine 20 mg tablet 20 mg PO BID 07/12/20 09/04/21 History fluticasone propionate 50 2 spray intranasal DAILY PRN 05/19/21 09/04/21 History mcg/actuation nasal Congestion spray,suspension levothyroxine 50 mcg tablet 50 mcg PO DAILYBB 05/19/21 09/04/21 History omeprazole 20 mg capsule,delayed 20 mg PO AMHS 05/19/21 09/04/21 History release furosemide 20 mg tablet (Lasix) 20 mg PO DAILY PRN edema #10 tabs 05/24/21 09/04/21 Rx Allergies Allergy/AdvReac Type Severity Reaction Status Date / Time celecoxib Allergy Intermediate Hives Verified 09/04/21 21:26 latex Allergy Intermediate RASH Verified 09/04/21 21:26 lisinopril Allergy Intermediate Cough Verified 09/04/21 21:26 Past Med/Surg History Medical History Atrial fibrillation Paroxysmal atrial fibrillation, on rhythm control strategy with dofetilide, Coumadin (entered by Dr Borges 10/22/17) CAD (coronary artery disease) Hx cardiac cath 2014: coronary arteries have diffuse minor irregularities Depression GERD (gastroesophageal reflux disease) H/O cholecystitis H/O cholecystitis HLD (hyperlipidemia) HTN (hypertension) Hx pulmonary embolism 2014 NSTEMI (non-ST elevated myocardial infarction) Obesity JALEN (obstructive sleep apnea) Paroxysmal atrial fibrillation Stress-induced cardiomyopathy Takotsubo cardiomyopathy Surgical History H/O carpal tunnel repair H/O carpal tunnel repair H/O wisdom tooth extraction H/O: hysterectomy H/O: hysterectomy Hx of cardiac catheterization Hx of cardiac catheterization Angiographically normal coronary arteries, 10/22/17, [facility]. History, echocardiogram, cardiac catheterization data consistent with atypical presentation of stress-induced cardiomyopathy with normal apical wall motion, and hypokinesis to akinesis of the basal left ventricular myocardial segments Family History Father , in 60's of myocardial infarction Myocardial infarction, Onset Age: 62 Brother Myocardial infarction, Onset Age: 68 Other Diabetes Hypertension Social History Smoking Status: Never smoker Second Hand Exposure: No; Hx Alcohol Use: No Hx Substance Use: No Preferred Language: Monegasque Communication Ability: Effective Visual Impairment: Limited Hearing Ability: Normal Logistics And Planning Manager Required: No Beliefs That Will Affect Care: None Current Living Situation: Alone Current Living Situation Comment: appartment Feels Safe at Home: Yes Assistive Devices: Cane, CPAP and Walker Review of Systems A total of 10 systems reviewed and were otherwise negative Physical Exam Vital Signs Vital Signs - 24 hr 09/04/21 18:44 09/04/21 20:10 09/04/21 20:16 Temperature 36.3 C L Temperature Source Temporal Artery Scan Pulse Rate - Lying Pulse Rate - Sitting Pulse Rate - Standing Pulse Rate 81 67 Respiratory Rate 18 21 Respiratory Effort / Characteristics Non-Labored Spontaneous Respiratory Depth Normal Respiratory Pattern Regular Blood Pressure - Lying Blood Pressure - Sitting Blood Pressure- Standing Blood Pressure 164/84 H 124/39 L Blood Pressure Mean 110 67 Blood Pressure Position Sitting Pulse Oximetry 93 95 95 Oxygen Delivery Method Room Air Room Air Sepsis Recent Fever Within 48 Hours No Sepsis New/Unexplained Change in Mental Status No Sepsis Action Taken by Nursing No Action Required 09/04/21 20:31 09/04/21 21:01 09/04/21 21:30 Temperature Temperature Source Pulse Rate - Lying Pulse Rate - Sitting Pulse Rate - Standing Pulse Rate 61 60 62 Respiratory Rate 14 14 18 Respiratory Effort / Characteristics Respiratory Depth Respiratory Pattern Blood Pressure - Lying Blood Pressure - Sitting Blood Pressure- Standing Blood Pressure 130/56 L 128/52 L 128/52 L Blood Pressure Mean 80 77 77 Blood Pressure Position Pulse Oximetry 95 93 96 Oxygen Delivery Method Sepsis Recent Fever Within 48 Hours Sepsis New/Unexplained Change in Mental Status Sepsis Action Taken by Nursing 09/04/21 21:45 Temperature Temperature Source Pulse Rate - Lying 60 Pulse Rate - Sitting 68 Pulse Rate - Standing 72 Pulse Rate Respiratory Rate Respiratory Effort / Characteristics Respiratory Depth Respiratory Pattern Blood Pressure - Lying 118/54 L Blood Pressure - Sitting 154/58 H Blood Pressure- Standing 152/71 H Blood Pressure Blood Pressure Mean Blood Pressure Position Pulse Oximetry Oxygen Delivery Method Sepsis Recent Fever Within 48 Hours Sepsis New/Unexplained Change in Mental Status Sepsis Action Taken by Nursing General: Well developed well nourished older female who in no acute distress, breathing comfortably on room air. Normal speech HEENT: Normal cephalic atraumatic. Pupils are equal round and reactive to light. Extraocular movements are intact. Oropharynx is pink with moist mucous membranes. No swelling of the mouth lips or tongue. Neck: Supple with a midline trachea. No meningeal signs or stiffness, no JVD or bruits. No Stridor. Chest: Clear to auscultation bilaterally. No wheezes or rhonchi. No increased work of breathing. Heart: Regular rate and rhythm without murmurs or gallops. Abdomen: Soft nontender, nondistended without rebound guarding or rigidity. Rectal (formed in the presence of a female nurse converting operator): Normal tone. There is scant stool but the mucus was guaiac negative Extremities: No cyanosis clubbing or edema. No calf tenderness or assymetry Spine/Back. Non tender to palpation. No CVA tenderness Skin: Good turgor without rashes. Neurologic exam: Cranial nerves two through 12 are intact. Motor and sensation are intact and symmetrical throughout. Course Administered Medications Atorvastatin Calcium (Atorvastatin 40 Mg Tab) 40 mg PO HS SAMI Stop: 10/04/21 23:33 Last Admin: 09/05/21 00:04 Dose: 40 mg Documented By: PAMELAM Escitalopram Oxalate (Escitalopram Oxalate 20 Mg Tab) 20 mg PO QPM SAMI Stop: 10/04/21 23:33 Last Admin: 09/05/21 00:04 Dose: 20 mg Documented By: OADavid Famotidine (Famotidine 20 Mg Tab) 20 mg PO BID SAMI Stop: 10/04/21 23:33 Last Admin: 09/05/21 00:00 Dose: 20 mg Documented By: OAM Pantoprazole Sodium 40 mg/ (Syringe) 10 mls @ 5 mls/min IV BID SAMI Stop: 10/04/21 23:33 Last Admin: 09/05/21 00:04 Dose: 5 mls/min Documented By: OADavid Discontinued Medications Amiodarone HCl (Amiodarone 200 Mg Tab) 200 mg PO HS SAMI Stop: 10/04/21 23:33 Last Admin: 09/05/21 00:09 Dose: Not Given Documented By: OAM Morphine Sulfate (Morphine Sulfate 2 Mg/Ml Carp) 2 mg IV NOW STA Stop: 09/04/21 21:25 Last Admin: 09/04/21 21:31 Dose: 2 mg Documented By: TENISHA Ondansetron HCl (Ondansetron Inj 2 Mg/Ml 2 Ml Vial) 4 mg IV NOW STA Stop: 09/04/21 21:25 Last Admin: 09/04/21 21:31 Dose: 4 mg Documented By: TENISHA Medical Decision Making Differential Diagnosis Bleed, anemia, anticoagulation use, cardiac disease, infection, colitis, medi cation side effect, electrolyte or metabolic abnormality Medical Records Attestation: I reviewed the patient's medical records. Home Medications Current Medication List: was personally reviewed by me Laboratory Data Attestation: I reviewed the patient's lab results. Result diagrams: 09/04/21 19:48 09/04/21 19:48 Lab Results 09/04/21 09/04/21 09/04/21 Range/Units 19:48 19:48 19:48 WBC 6.84 (4.8-10.8) K/ul RBC 4.26 (3.93-5.22) M/uL Hgb 11.8 L (12.0-16.0) g/dl Hct 36.8 (34.1-44.9) % MCV 86.4 (80.0-100.0) fL MCH 27.7 (25.0-34.0) pg MCHC 32.1 (32.0-36.0) g/dL RDW Std Deviation 48.4 H (36.4-46.3) fL RDW Coeff of Artemio 15.4 H (11.5-14.5) % Plt Count 276 (130-400) K/uL MPV 9.3 L (9.4-12.3) fL PT 36.9 H (9.0-12.0) Seconds INR 3.7 H (0.9-1.1) APTT 43.9 H (21.0-31.0) Seconds PTT Ratio 1.6 Sodium 141 (136-145) mmol/L Potassium 3.6 (3.5-5.1) mmol/L Chloride 106 (98-107) mmol/L Carbon Dioxide 26 (21-32) mmol/L Anion Gap 9 (3-11) BUN 18 (6-23) mg/dl Creatinine 1.04 (0.6-1.2) mg/dl Est Cr Clr Drug Dosing 71.6 ml/min Est GFR ( Amer) 63.0 ml/min Est GFR (Non-Af Amer) 54.4 ml/min BUN/Creatinine Ratio 17.3 (10-20) Glucose 98 (70-99(Fasting)) mg/dl Calcium 8.2 L (8.5-10.1) mg/dl Total Bilirubin 0.4 (0.2-1.0) mg/dl AST 18 (13-39) U/L ALT 18 (7-52) U/L Alkaline Phosphatase 135 H (34-104) U/L Total Protein 7.4 (6.0-8.3) gm/dl Albumin 3.9 (3.4-5.0) gm/dl Globulin 3.5 (2.5-4.0) gm/dl Albumin/Globulin Ratio 1.1 (0.9-2) TSH (0.300-4.500) uIu/ml POC Stool Occult Blood (Negative) SARS-CoV-2, RNA, NAAT (NEGATIVE) Blood Type Antibody Screen 09/04/21 09/04/21 09/04/21 Range/Units 19:48 19:54 20:16 WBC (4.8-10.8) K/ul RBC (3.93-5.22) M/uL Hgb (12.0-16.0) g/dl Hct (34.1-44.9) % MCV (80.0-100.0) fL MCH (25.0-34.0) pg MCHC (32.0-36.0) g/dL RDW Std Deviation (36.4-46.3) fL RDW Coeff of Artemio (11.5-14.5) % Plt Count (130-400) K/uL MPV (9.4-12.3) fL PT (9.0-12.0) Seconds INR (0.9-1.1) APTT (21.0-31.0) Seconds PTT Ratio Sodium (136-145) mmol/L Potassium (3.5-5.1) mmol/L Chloride (98-107) mmol/L Carbon Dioxide (21-32) mmol/L Anion Gap (3-11) BUN (6-23) mg/dl Creatinine (0.6-1.2) mg/dl Est Cr Clr Drug Dosing ml/min Est GFR ( Amer) ml/min Est GFR (Non-Af Amer) ml/min BUN/Creatinine Ratio (10-20) Glucose (70-99(Fasting)) mg/dl Calcium (8.5-10.1) mg/dl Total Bilirubin (0.2-1.0) mg/dl AST (13-39) U/L ALT (7-52) U/L Alkaline Phosphatase (34-104) U/L Total Protein (6.0-8.3) gm/dl Albumin (3.4-5.0) gm/dl Globulin (2.5-4.0) gm/dl Albumin/Globulin Ratio (0.9-2) TSH 2.322 (0.300-4.500) uIu/ml POC Stool Occult Blood (Negative) SARS-CoV-2, RNA, NAAT NEGATIVE (NEGATIVE) Blood Type O Positive Antibody Screen NEGATIVE 09/04/21 Range/Units 21:00 WBC (4.8-10.8) K/ul RBC (3.93-5.22) M/uL Hgb (12.0-16.0) g/dl Hct (34.1-44.9) % MCV (80.0-100.0) fL MCH (25.0-34.0) pg MCHC (32.0-36.0) g/dL RDW Std Deviation (36.4-46.3) fL RDW Coeff of Artemio (11.5-14.5) % Plt Count (130-400) K/uL MPV (9.4-12.3) fL PT (9.0-12.0) Seconds INR (0.9-1.1) APTT (21.0-31.0) Seconds PTT Ratio Sodium (136-145) mmol/L Potassium (3.5-5.1) mmol/L Chloride (98-107) mmol/L Carbon Dioxide (21-32) mmol/L Anion Gap (3-11) BUN (6-23) mg/dl Creatinine (0.6-1.2) mg/dl Est Cr Clr Drug Dosing ml/min Est GFR ( Amer) ml/min Est GFR (Non-Af Amer) ml/min BUN/Creatinine Ratio (10-20) Glucose (70-99(Fasting)) mg/dl Calcium (8.5-10.1) mg/dl Total Bilirubin (0.2-1.0) mg/dl AST (13-39) U/L ALT (7-52) U/L Alkaline Phosphatase (34-104) U/L Total Protein (6.0-8.3) gm/dl Albumin (3.4-5.0) gm/dl Globulin (2.5-4.0) gm/dl Albumin/Globulin Ratio (0.9-2) TSH (0.300-4.500) uIu/ml POC Stool Occult Blood Negative (Negative) SARS-CoV-2, RNA, NAAT (NEGATIVE) Blood Type Antibody Screen Imaging Data Attestation: I personally reviewed and interpreted this imaging study as follows: My Impression: Chest x-rayno acute infiltrate, failure, pneumothorax seen Radiologist's Impression: Chest X-Ray 09/04/21 20:10 SINGLE VIEW CHEST CLINICAL HISTORY: Generalized weakness. FINDINGS: An AP, portable, upright chest radiograph is compared to study dated 05/19/2021 and correlated with chest CT dated 10/26/2017. A 2-lead cardiac pacemaker is unchanged in position. The heart is enlarged noting atherosclerotic calcification of the thoracic ureter. The pulmonary vascular structures noncongested. Chronic interstitial thickening is similar to previous. There is mild bibasilar scarring/atelectasis. The lungs and pleural spaces are otherwise clear. No pneumothorax is seen. The skeletal structures are osteopenic. The bony thorax is grossly intact. IMPRESSION: 1. Cardiomegaly and cardiac pacemaker without radiographic evidence of congestive failure. 2. No airspace consolidation or large pleural effusion is identified. ACT 112: Negative or not required by law. Electronically signed by: Raúl Butler M.D. 09/04/2021 8:41 PM ECG Data Attestation: I personally reviewed and interpreted this ECG as follows: Indication: + weakness Rate (beats per minute): 69 Rhythm: + other (atrial paced rhythym) ECG Intervals/blocks: + Normal QRS ECG [place]: + Normal ECG ST segments: + Normal ST segments ECG Findings: no PACs or no PVCs Comparison ECG Date: from (05/25/21) Change: no significant change MDM Narrative She comes in as described above she has had dark stool. She comes through triage and orders were placed in by a provider in triage to get things moving this included an IV as well as multiple blood test including type and screen given her history of the fact that she is on Coumadin. She is hemodynamically stable and looks well. I did also add an EKG and chest x-ray. she was re assessed frequently. Hemoglobin was 11. INR was 3.6. She has no signifcant electrolyte or metabolic abnormalities. I Did do a rectal exam and there is really no stool in the vault but guaiac to mucus and was negative. EKG does not suggest ischemic changes or ectopy. Chest x-ray does not suggest congestive heart failure, pneumonia, pneumothorax or free air. I do think the patient needs to be admitted/observed given the fact that she has had melanotic stools and is on Coumadin I did consult Dr. Rodriguez to see her in the ER for these measures. COVID testing was negative. She has been typed and screened and thus far has been hemodynamically stable INR is 3.6 but will be admitted/observed Continuous cardiac monitoring: Orders placed in EMR for continuous cardiac monitoring. Upon my interpretation was noted be normal sinus rhythm rate of 80. 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
[2021-09-04 20:10] LABS: Hematocrit (blood only) 36.8 % (34.1-44.9); Hemoglobin 11.8 g/dl (12.0-16.0); Mean Corpuscular Hemoglobin 27.7 pg (25.0-34.0); Mean Corpuscular Hgb Conc 32.1 g/dL (32.0-36.0); Mean Corpuscular Volume 86.4 fL (80.0-100.0); Mean Platelet Volume 9.3 fL (9.4-12.3); Platelet Count 276 K/uL (130-400); RDW Coefficient of Variation 15.4 % (11.5-14.5); RDW Standard Deviation 48.4 fL (36.4-46.3); Red Blood Count 4.26 M/uL (3.93-5.22); White Blood Count 6.84 K/ul (4.8-10.8)
[2021-09-04 20:32] LABS: INR 3.7 (0.9-1.1); Partial Thromboplastin Ratio 1.6; Partial Thromboplastin Time 43.9 Seconds (21.0-31.0); Prothrombin Time 36.9 Seconds (9.0-12.0)
--- NOTE | 2021-09-04 20:43 | XRay Report ---
SINGLE VIEW CHEST CLINICAL HISTORY: Generalized weakness. FINDINGS: An AP, portable, upright chest radiograph is compared to study dated 05/19/2021 and correlate d with chest CT dated 10/26/2017. A 2-lead cardiac pacemaker is unchanged in position. The heart is en larged noting atherosclerotic calcification of the thoracic ureter. The pulmonary vascular structures noncongested. Chronic interstitial thickening is similar to previous. There is mild bibasilar scarri ng/atelectasis. The lungs and pleural spaces are otherwise clear. No pneumothorax is seen. The skelet al structures are osteopenic. The bony thorax is grossly intact. IMPRESSION: 1. Cardiomegaly and cardiac pacemaker without radiographic evidence of congestive failure. 2. No airspace consolidation or large pleural effusion is identified. ACT 112: Negative or not required by law. Electronically signed by: Raúl Butlre M.D. 09/04/2021 8:41 PM
[2021-09-04 20:52] LABS: Albumin Globulin Ratio 1.1 (0.9-2); Albumin Level 3.9 gm/dl (3.4-5.0); BUN Creatinine Ratio 17.3 (10-20); Bilirubin,Total 0.4 mg/dl (0.2-1.0); Calcium 8.2 mg/dl (8.5-10.1); Creatinine Clr Calc Pharmacy 71.6 ml/min; Est GFR (Non-African American) 54.4 ml/min; Globulin 3.5 gm/dl (2.5-4.0); Potassium 3.6 mmol/L (3.5-5.1); Total Protein 7.4 gm/dl (6.0-8.3)
[2021-09-04] MEDS ORDERED: MoRPHine SULFATE 2 MG/ML CARP IV STA (21:24)
[2021-09-04] MEDS ORDERED: ONDANSETRON INJ 2 MG/ML 2 ML VIAL IV STA (21:24)
--- NOTE | 2021-09-04 21:54 | History & Physical Report ---
Date of Service September 04, 2021 Assessment & Plan (1) Melena: Plan: 1 episode of melena reported. She was initially placed on Protonix 40 IV twice daily as she was originally hemodynamically stable and hemoglobin hematocrit was at baseline. She later developed hypotension. Heart rate did not augment but she is also on Toprol XL which was held. Aspirin and warfarin held. Losartan held. Bolus normal saline given and Protonix drip was started. Trend H&H, GI consult. (2) Paroxysmal A-fib: Plan: She has a history of paroxysmal atrial fibrillation on chronic anticoagulation with warfarin. Current INR is 3.6. Initially she was hemodynamically stable and was not actively bleeding with a baseline H&H. However, later when she developed hypotension vitamin K 5 mg IV was administered. Continue to trend INR and give hemodynamic support per plan above. Toprol XL was held in order for patient to be able to augment cardiac output as needed. (3) Anemia: Plan: Chronic, baseline. Repeat H&H in setting of possible melena (4) Depression: Plan: Chronic, stable, continue Lexapro per home regimen. (5) Hypothyroidism: Plan: Chronic, TSH pending, continue home levothyroxine (6) HTN (hypertension): Plan: Home losartan held in setting of possible GI bleed. (7) H/O cardiac pacemaker: (8) DVT prophylaxis: Plan: SCDs, chemoprophylaxis is contraindicated in setting of possible GI bleed Full code Disposition-admit to medicine Belkis Rodriguez DO [facility] Hospitalist History of Present Illness Chief Complaint: black stool Primary Care Provider: Irish Richard DO 70 yo F on coumadin for afib presents with reports of black stool x 1 day. She is not on iron and doesn't take pepto bismol. There was no stool in the rectal vault to confirm FOBT on rectal per ER physician. INR is 3.6 and she was initially hemodynamically stable. H/H is 11.8/36.8 which is her baseline. Reports abdominal pain x 3 weeks. Associated with nausea, and is not triggered by anything. It goes away with jasmyn flako. Some Tylenol for pain Severe pain tonight-improved with the morphine to a 6/10. Generally hasn't been feeling well for 3 weeks Not eating much over the past few days Feels very tired. Takes coumadin and ASA 81mg and took only the aspirin today. No fevers or SOB. First episode of black stool was today-two times went and last time was black Normal stool yesterday No lightheadedness No chest pain Allergies Allergy/AdvReac Type Severity Reaction Status Date / Time celecoxib Allergy Intermediate Hives Verified 09/04/21 21:26 latex Allergy Intermediate RASH Verified 09/04/21 21:26 lisinopril Allergy Intermediate Cough Verified 09/04/21 21:26 Home Medications Medication Instructions Recorded Confirmed Type acetaminophen 325 mg tablet 2 tab PO Q6H PRN Pain 10/22/17 09/04/21 History aspirin 81 mg tablet,delayed 81 mg PO QAM 10/22/17 09/04/21 History release (Vonda Low Dose Aspirin) cholecalciferol (vitamin D3) 25 1,000 units PO QAM 10/22/17 09/04/21 History mcg (1,000 unit) capsule cyanocobalamin (vitamin B-12) 1,000 mcg sublingual QAM 10/22/17 09/04/21 History 1,000 mcg sublingual tablet losartan 100 mg tablet 100 mg PO QAM 10/22/17 09/04/21 History warfarin 5 mg tablet See Rx Instructions .Route .COMPLEX 10/22/17 09/04/21 History amlodipine 2.5 mg tablet 2.5 mg PO QAM 07/02/18 09/04/21 History amiodarone 200 mg tablet 200 mg PO QAM 12/02/19 09/05/21 History atorvastatin 40 mg tablet (Lipitor) 40 mg PO HS 12/02/19 09/04/21 History metoprolol succinate 25 mg 25 mg PO QAM 12/02/19 09/04/21 History tablet,extended release 24 hr escitalopram oxalate 20 mg tablet 20 mg PO QPM 07/12/20 09/04/21 History famotidine 20 mg tablet 20 mg PO BID 07/12/20 09/04/21 History fluticasone propionate 50 2 spray intranasal DAILY PRN 05/19/21 09/04/21 History mcg/actuation nasal Congestion spray,suspension levothyroxine 50 mcg tablet 50 mcg PO DAILYBB 05/19/21 09/04/21 History omeprazole 20 mg capsule,delayed 20 mg PO AMHS 05/19/21 09/04/21 History release furosemide 20 mg tablet (Lasix) 20 mg PO DAILY PRN edema #10 tabs 05/24/21 09/04/21 Rx Past Med/Surg History Medical History Atrial fibrillation Paroxysmal atrial fibrillation, on rhythm control strategy with dofetilide, Coumadin (entered by Dr Borges 10/22/17) CAD (coronary artery disease) Hx cardiac cath 2014: coronary arteries have diffuse minor irregularities Depression GERD (gastroesophageal reflux disease) H/O cholecystitis H/O cholecystitis HLD (hyperlipidemia) HTN (hypertension) Hx pulmonary embolism 2014 NSTEMI (non-ST elevated myocardial infarction) Obesity JALEN (obstructive sleep apnea) Paroxysmal atrial fibrillation Stress-induced cardiomyopathy Takotsubo cardiomyopathy Surgical History H/O carpal tunnel repair H/O carpal tunnel repair H/O wisdom tooth extraction H/O: hysterectomy H/O: hysterectomy Hx of cardiac catheterization Hx of cardiac catheterization Angiographically normal coronary arteries, 10/22/17, [facility]. History, echocardiogram, cardiac catheterization data consistent with atypical presentation of stress-induced cardiomyopathy with normal apical wall motion, and hypokinesis to akinesis of the basal left ventricular myocardial segments Family History Father , in 60's of myocardial infarction Myocardial infarction, Onset Age: 62 Brother Myocardial infarction, Onset Age: 68 Other Diabetes Hypertension Social History Smoking Status: Unknown if ever smoked Second Hand Exposure: No; Hx Alcohol Use: No Hx Substance Use: No Preferred Language: Malawian Communication Ability: Effective Visual Impairment: Limited Hearing Ability: Normal Foil Spinner Required: Yes Beliefs That Will Affect Care: None Current Living Situation: Alone Current Living Situation Comment: appartment Other Information That Helps Us Care for You: No Feels Safe at Home: Yes Safety Concerns: Feels Safe At This Time Assistive Devices: BiPap and Cane Review of Systems Review of Systems: All systems were reviewed and negative except as indicated above. Physical Exam Physical Exam: CONSTITUTIONAL: obese, vitals as above, NAD EYES: normal conjunctivae, no scleral icterus ENT: external ear and nose normal, MMM NECK: trachea midline, RESPIRATORY: clear to auscultation bilaterally, no crackles, rales or wheezes, normal respiratory effort CARDIOVASCULAR: regular rate and rhythm, S1 and 2 heard without murmurs, gallops or rubs, no JVD, no peripheral edema CHEST: inspection of chest was normal GASTROINTESTINAL: soft, nontender, ND, no guarding MUSCULOSKELETAL: strength 5/5 throughout, head is normocephalic and atraumatic, SKIN: warm and dry, NEUROLOGIC: CN 2-12 grossly intact, no sensory deficit, normal cognition, normal speech, no tremor PSYCHIATRIC: alert cooperative and oriented to person, place and time. Results & Data Results & Data ([facility]) Vital Signs (Past 12 Hours) Vital Signs Temp Pulse Resp BP Pulse Ox O2 Del Method 09/04/21 21:30 62 18 128/52 L 96 09/04/21 21:01 60 14 128/52 L 93 09/04/21 20:31 61 14 130/56 L 95 09/04/21 20:16 67 21 124/39 L 95 09/04/21 20:10 95 Room Air 09/04/21 18:44 36.3 C L 81 18 164/84 H 93 Room Air Laboratory Results Short CBC 09/04/21 Range/Units 19:48 WBC 6.84 (4.8-10.8) K/ul Hgb 11.8 L (12.0-16.0) g/dl Hct 36.8 (34.1-44.9) % Plt Count 276 (130-400) K/uL BMP 09/04/21 19:48 Sodium 141 Potassium 3.6 Chloride 106 Carbon Dioxide 26 BUN 18 Creatinine 1.04 Glucose 98 Calcium 8.2 L Liver Function 09/04/21 Range/Units 19:48 Total Bilirubin 0.4 (0.2-1.0) mg/dl AST 18 (13-39) U/L ALT 18 (7-52) U/L Alkaline Phosphatase 135 H (34-104) U/L Albumin 3.9 (3.4-5.0) gm/dl Diagnostic Findings Chest X-Ray 09/04/21 20:10 SINGLE VIEW CHEST CLINICAL HISTORY: Generalized weakness. FINDINGS: An AP, portable, upright chest radiograph is compared to study dated 05/19/2021 and correlated with chest CT dated 10/26/2017. A 2-lead cardiac pacemaker is unchanged in position. The heart is enlarged noting atherosclerotic calcification of the thoracic ureter. The pulmonary vascular structures noncongested. Chronic interstitial thickening is similar to previous. There is mild bibasilar scarring/atelectasis. The lungs and pleural spaces are otherwise clear. No pneumothorax is seen. The skeletal structures are osteopenic. The bony thorax is grossly intact. IMPRESSION: 1. Cardiomegaly and cardiac pacemaker without radiographic evidence of congestive failure. 2. No airspace consolidation or large pleural effusion is identified. ACT 112: Negative or not required by law. Electronically signed by: Raúl Butler M.D. 09/04/2021 8:41 PM (1) Anemia Anemia type: unspecified type Qualified Code(s): D64.9 - Anemia, unspecified
[2021-09-04] MEDS ORDERED: AMIODARONE 200 MG TAB PO SCH (23:34)
[2021-09-04] MEDS ORDERED: PANTOprazole 40 MG in SYRINGE 0 ML IV SCH (23:34)
[2021-09-05] MEDS: ESCITALOPRAM OXALATE 20 MG TAB PO SCH ×2 (00:04→20:20)
[2021-09-05] MEDS: ATORVASTATIN 40 MG TAB PO SCH ×2 (00:04→20:19)
[2021-09-05] MEDS ORDERED: SODIUM CHLORIDE 0.9% 1000ML 1,000 ML IV ONE (05:01)
[2021-09-05] MEDS ORDERED: PHYTONADIONE 5 MG in DEXTROSE 5% 50 ML IV ONE (05:30)
[2021-09-05] MEDS: PANTOprazole 40 MG in DEXTROSE 5% 100 ML IV SCH ×4 (05:48→21:11)
[2021-09-05 06:23] LABS: Hematocrit (blood only) 33.2 % (34.1-44.9); Hemoglobin 10.6 g/dl (12.0-16.0); Mean Corpuscular Hemoglobin 28.2 pg (25.0-34.0); Mean Corpuscular Hgb Conc 31.9 g/dL (32.0-36.0); Mean Corpuscular Volume 88.3 fL (80.0-100.0); Platelet Count 206 K/uL (130-400); RDW Coefficient of Variation 15.4 % (11.5-14.5); RDW Standard Deviation 49.7 fL (36.4-46.3); Red Blood Count 3.76 M/uL (3.93-5.22); White Blood Count 5.08 K/ul (4.8-10.8)
[2021-09-05] MEDS: LEVOTHYROXINE SODIUM 50 MCG TABLET PO SCH (06:29)
[2021-09-05] MEDS: SODIUM CHLORIDE 0.9% 1000ML 1,000 ML IV SCH ×2 (06:31→10:09)
[2021-09-05 06:44] LABS: INR 3.1 (0.9-1.1); Prothrombin Time 31.4 Seconds (9.0-12.0)
[2021-09-05 06:54] LABS: BUN Creatinine Ratio 21.7 (10-20); Calcium 7.7 mg/dl (8.5-10.1); Est GFR (African American) 73.1 ml/min; Est GFR (Non-African American) 63.1 ml/min; Potassium 3.5 mmol/L (3.5-5.1)
--- NOTE | 2021-09-05 08:41 | Gastrointestinal Consultation ---
Date of Consultation September 05, 2021 Assessment & Plan (1) Melanotic stools: 70 year old female anticoagulated with ASA and coumadin presenting with Melena, isolated episode yesterday. NPO Correct INR Hold ASA, Coumadin Arrange EGD today for melena She needs an OP colonoscopy which was ordered Trend H&H, monitor and document output, transfuse per primary team Thank you for allowing us to participate in the care of this patient. Please call with any acute changes, questions or concerns. Please see addendum below with additional recommendation from my supervising physician. Supervising Physician Co-Signing Physician Notes . I saw and evaluated the patient. She again presents with melena which is similar in consistency and presentation to several months ago. At that time she underwent upper endoscopy which was within normal limits. The patient was advised to consider colonoscopy however at that time she was not interested in pursuing this type of examination. She denies having hematemesis or bright red blood per rectum. Physical examination Mild pallor of skin noted No abdominal tenderness or distention noted Impression: Patient presents with a history of melena, we will plan for upper endoscopy today for further evaluation. If the upper endoscopy is negative we will then need to make arrangements for a colonoscopy over the next few weeks for further evaluation of her recurrent melena. In the past the patient was resistant to colonoscopy and it appears she has missed a number of appointments in the past for this. History of Present Illness Reason for Consultation: melena Requesting Physician: Fabio Patterson MD Attending Physician: Fabio Patterson MD History of Present Illness 70 year old female with history of JALEN, CAD, h/o PE, AF on ASA/Coumadin who presents for supratheuraptic INR and melena. GI was asked to evaluate. Similar admission back in May. At that time she udnerwent EGD which was negative. Suggests since discharge she was doing well until yesterday. Yesterday she develoepd generlized abdominal discomfort, need to move her bowels. When she had BM she noted this was dark and tarry. No hematochezia. She had one isolated episode of melena. Has not moved her bowels since. Does have some GERD symptoms, burping and belching. Some nausea, no vomiting. She is overdue for a colonoscopy for colon CA screening, this was last completed about 11 years ago and was normal per patient. There is an active order for a colonoscopy in her [facility] EMR since October 2020. + ASA + coumadin Denies other NSAIDs or AC No abd imaging this admission HGB 10.6 from yesterday 11.8 BUN normal EGD 2021: Normal esophagus. - Gastritis. Biopsied. - Normal examined duodenum. Allergies Allergy/AdvReac Type Severity Reaction Status Date / Time celecoxib Allergy Intermediate Hives Verified 09/04/21 21:26 latex Allergy Intermediate RASH Verified 09/04/21 21:26 lisinopril Allergy Intermediate Cough Verified 09/04/21 21:26 Home Medications Medication Instructions Recorded Confirmed Type acetaminophen 325 mg tablet 2 tab PO Q6H PRN Pain 10/22/17 09/04/21 History aspirin 81 mg tablet,delayed 81 mg PO QAM 10/22/17 09/04/21 History release (Vonda Low Dose Aspirin) cholecalciferol (vitamin D3) 25 1,000 units PO QAM 10/22/17 09/04/21 History mcg (1,000 unit) capsule cyanocobalamin (vitamin B-12) 1,000 mcg sublingual QAM 10/22/17 09/04/21 History 1,000 mcg sublingual tablet losartan 100 mg tablet 100 mg PO QAM 10/22/17 09/04/21 History warfarin 5 mg tablet See Rx Instructions .Route .COMPLEX 10/22/17 09/04/21 History amlodipine 2.5 mg tablet 2.5 mg PO QAM 07/02/18 09/04/21 History amiodarone 200 mg tablet 200 mg PO QAM 12/02/19 09/05/21 History atorvastatin 40 mg tablet (Lipitor) 40 mg PO HS 12/02/19 09/04/21 History metoprolol succinate 25 mg 25 mg PO QAM 12/02/19 09/04/21 History tablet,extended release 24 hr escitalopram oxalate 20 mg tablet 20 mg PO QPM 07/12/20 09/04/21 History famotidine 20 mg tablet 20 mg PO BID 07/12/20 09/04/21 History fluticasone propionate 50 2 spray intranasal DAILY PRN 05/19/21 09/04/21 History mcg/actuation nasal Congestion spray,suspension levothyroxine 50 mcg tablet 50 mcg PO DAILYBB 05/19/21 09/04/21 History omeprazole 20 mg capsule,delayed 20 mg PO AMHS 05/19/21 09/04/21 History release furosemide 20 mg tablet (Lasix) 20 mg PO DAILY PRN edema #10 tabs 05/24/21 09/04/21 Rx Patient History Medical History Atrial fibrillation Paroxysmal atrial fibrillation, on rhythm control strategy with dofetilide, Coumadin (entered by Dr Borges 10/22/17) CAD (coronary artery disease) Hx cardiac cath 2014: coronary arteries have diffuse minor irregularities Depression GERD (gastroesophageal reflux disease) H/O cholecystitis H/O cholecystitis HLD (hyperlipidemia) HTN (hypertension) Hx pulmonary embolism 2014 NSTEMI (non-ST elevated myocardial infarction) Obesity JALEN (obstructive sleep apnea) Paroxysmal atrial fibrillation Stress-induced cardiomyopathy Takotsubo cardiomyopathy Surgical History H/O carpal tunnel repair H/O carpal tunnel repair H/O wisdom tooth extraction H/O: hysterectomy H/O: hysterectomy Hx of cardiac catheterization Hx of cardiac catheterization Angiographically normal coronary arteries, 10/22/17, [facility]. History, echocardiogram, cardiac catheterization data consistent with atypical presentation of stress-induced cardiomyopathy with normal apical wall motion, and hypokinesis to akinesis of the basal left ventricular myocardial segments Family History Father , in 60's of myocardial infarction Myocardial infarction, Onset Age: 62 Brother Myocardial infarction, Onset Age: 68 Other Diabetes Hypertension Social History Smoking Status: Unknown if ever smoked Second Hand Exposure: No; Hx Alcohol Use: No Hx Substance Use: No Preferred Language: Pashto Communication Ability: Effective Visual Impairment: Limited Hearing Ability: Normal Optical Engineering Technician Required: Yes Beliefs That Will Affect Care: None Current Living Situation: Alone Current Living Situation Comment: appartment Other Information That Helps Us Care for You: No Feels Safe at Home: Yes Safety Concerns: Feels Safe At This Time Assistive Devices: BiPap and Cane Review of Systems Review of Systems: All systems reviewed & are unremarkable except as noted in HPI & below Physical Exam Constitutional: WD/WN, vitals as above Neck: normal visual inspection Respiratory: normal respiratory effort, lungs clear to auscultation Cardiovascular: Rate/Rhythm: regular rate and regular rhythm Gastrointestinal (Abdomen): normal bowel sounds, soft, nontender, no hepatosplenomegaly Skin: no rashes, warm and dry Results & Data ([facility]) Vital Signs (Past 12 Hours) Vital Signs Temp Pulse Pulse Resp BP BP Pulse Ox 09/05/21 06:30 62 16 106/50 L 97 09/05/21 06:00 60 17 09/05/21 05:30 60 21 94 09/05/21 05:00 60 32 H 96 09/05/21 05:00 106/50 L 09/05/21 04:30 60 16 96 09/05/21 04:00 61 19 97 09/05/21 04:00 100/48 L 09/05/21 03:30 60 23 94 09/05/21 03:01 100/32 L 09/05/21 03:01 60 20 96 09/05/21 03:00 60 15 97 09/05/21 02:30 60 19 96 09/05/21 02:06 62 18 95 09/05/21 02:06 111/37 L 09/05/21 02:00 94 09/05/21 02:00 75/47 L 09/05/21 01:30 62 21 95 09/05/21 01:30 138/76 09/05/21 03:47 36.4 C L 60 24 89/45 L 96 09/05/21 01:00 60 20 135/60 94 09/05/21 00:30 64 21 121/44 L 93 09/05/21 00:09 09/05/21 00:02 60 18 163/57 H 94 09/04/21 23:31 60 13 124/44 L 93 09/04/21 23:00 60 14 128/52 L 94 09/04/21 22:31 60 13 130/55 L 93 09/04/21 22:01 61 13 131/54 L 95 09/04/21 21:30 62 18 128/52 L 96 09/04/21 21:01 60 14 128/52 L 93 Pulse Ox O2 Del Method O2 Del Method O2 Flow Rate 09/05/21 06:30 09/05/21 06:00 09/05/21 05:30 09/05/21 05:00 09/05/21 05:00 09/05/21 04:30 09/05/21 04:00 09/05/21 04:00 09/05/21 03:30 09/05/21 03:01 09/05/21 03:01 09/05/21 03:00 09/05/21 02:30 09/05/21 02:06 09/05/21 02:06 09/05/21 02:00 09/05/21 02:00 09/05/21 01:30 09/05/21 01:30 09/05/21 03:47 Nasal Cannula 2 09/05/21 01:00 09/05/21 00:30 09/05/21 00:09 94 Room Air 09/05/21 00:02 09/04/21 23:31 09/04/21 23:00 09/04/21 22:31 09/04/21 22:01 09/04/21 21:30 09/04/21 21:01 Laboratory Results 09/05/21 09/05/21 09/05/21 Range/Units 06:10 06:10 06:10 WBC 5.08 (4.8-10.8) K/ul RBC 3.76 L (3.93-5.22) M/uL Hgb 10.6 L (12.0-16.0) g/dl Hct 33.2 L (34.1-44.9) % MCV 88.3 (80.0-100.0) fL MCH 28.2 (25.0-34.0) pg MCHC 31.9 L (32.0-36.0) g/dL RDW Std Deviation 49.7 H (36.4-46.3) fL RDW Coeff of Artemio 15.4 H (11.5-14.5) % Plt Count 206 (130-400) K/uL MPV 9.0 L (9.4-12.3) fL PT 31.4 H (9.0-12.0) Seconds INR 3.1 H (0.9-1.1) APTT (21.0-31.0) Seconds PTT Ratio Sodium 141 (136-145) mmol/L Potassium 3.5 (3.5-5.1) mmol/L Chloride 107 (98-107) mmol/L Carbon Dioxide 27 (21-32) mmol/L Anion Gap 7 (3-11) BUN 20 (6-23) mg/dl Creatinine 0.92 (0.6-1.2) mg/dl Est Cr Clr Drug Dosing 81.0 ml/min Est GFR ( Amer) 73.1 ml/min Est GFR (Non-Af Amer) 63.1 ml/min BUN/Creatinine Ratio 21.7 H (10-20) Glucose 110 H (70-99(Fasting)) mg/dl Calcium 7.7 L (8.5-10.1) mg/dl Total Bilirubin (0.2-1.0) mg/dl AST (13-39) U/L ALT (7-52) U/L Alkaline Phosphatase (34-104) U/L Total Protein (6.0-8.3) gm/dl Albumin (3.4-5.0) gm/dl Globulin (2.5-4.0) gm/dl Albumin/Globulin Ratio (0.9-2) TSH (0.300-4.500) uIu/ml POC Stool Occult Blood (Negative) SARS-CoV-2, RNA, NAAT (NEGATIVE) Blood Type Antibody Screen 09/04/21 09/04/21 09/04/21 Range/Units 21:00 20:16 19:54 WBC (4.8-10.8) K/ul RBC (3.93-5.22) M/uL Hgb (12.0-16.0) g/dl Hct (34.1-44.9) % MCV (80.0-100.0) fL MCH (25.0-34.0) pg MCHC (32.0-36.0) g/dL RDW Std Deviation (36.4-46.3) fL RDW Coeff of Artemio (11.5-14.5) % Plt Count (130-400) K/uL MPV (9.4-12.3) fL PT (9.0-12.0) Seconds INR (0.9-1.1) APTT (21.0-31.0) Seconds PTT Ratio Sodium (136-145) mmol/L Potassium (3.5-5.1) mmol/L Chloride (98-107) mmol/L Carbon Dioxide (21-32) mmol/L Anion Gap (3-11) BUN (6-23) mg/dl Creatinine (0.6-1.2) mg/dl Est Cr Clr Drug Dosing ml/min Est GFR ( Amer) ml/min Est GFR (Non-Af Amer) ml/min BUN/Creatinine Ratio (10-20) Glucose (70-99(Fasting)) mg/dl Calcium (8.5-10.1) mg/dl Total Bilirubin (0.2-1.0) mg/dl AST (13-39) U/L ALT (7-52) U/L Alkaline Phosphatase (34-104) U/L Total Protein (6.0-8.3) gm/dl Albumin (3.4-5.0) gm/dl Globulin (2.5-4.0) gm/dl Albumin/Globulin Ratio (0.9-2) TSH (0.300-4.500) uIu/ml POC Stool Occult Blood Negative (Negative) SARS-CoV-2, RNA, NAAT NEGATIVE (NEGATIVE) Blood Type O Positive Antibody Screen NEGATIVE 09/04/21 09/04/21 09/04/21 Range/Units 19:48 19:48 19:48 WBC (4.8-10.8) K/ul RBC (3.93-5.22) M/uL Hgb (12.0-16.0) g/dl Hct (34.1-44.9) % MCV (80.0-100.0) fL MCH (25.0-34.0) pg MCHC (32.0-36.0) g/dL RDW Std Deviation (36.4-46.3) fL RDW Coeff of Artemio (11.5-14.5) % Plt Count (130-400) K/uL MPV (9.4-12.3) fL PT 36.9 H (9.0-12.0) Seconds INR 3.7 H (0.9-1.1) APTT 43.9 H (21.0-31.0) Seconds PTT Ratio 1.6 Sodium 141 (136-145) mmol/L Potassium 3.6 (3.5-5.1) mmol/L Chloride 106 (98-107) mmol/L Carbon Dioxide 26 (21-32) mmol/L Anion Gap 9 (3-11) BUN 18 (6-23) mg/dl Creatinine 1.04 (0.6-1.2) mg/dl Est Cr Clr Drug Dosing 71.6 ml/min Est GFR ( Amer) 63.0 ml/min Est GFR (Non-Af Amer) 54.4 ml/min BUN/Creatinine Ratio 17.3 (10-20) Glucose 98 (70-99(Fasting)) mg/dl Calcium 8.2 L (8.5-10.1) mg/dl Total Bilirubin 0.4 (0.2-1.0) mg/dl AST 18 (13-39) U/L ALT 18 (7-52) U/L Alkaline Phosphatase 135 H (34-104) U/L Total Protein 7.4 (6.0-8.3) gm/dl Albumin 3.9 (3.4-5.0) gm/dl Globulin 3.5 (2.5-4.0) gm/dl Albumin/Globulin Ratio 1.1 (0.9-2) TSH 2.322 (0.300-4.500) uIu/ml POC Stool Occult Blood (Negative) SARS-CoV-2, RNA, NAAT (NEGATIVE) Blood Type Antibody Screen 09/04/21 Range/Units 19:48 WBC 6.84 (4.8-10.8) K/ul RBC 4.26 (3.93-5.22) M/uL Hgb 11.8 L (12.0-16.0) g/dl Hct 36.8 (34.1-44.9) % MCV 86.4 (80.0-100.0) fL MCH 27.7 (25.0-34.0) pg MCHC 32.1 (32.0-36.0) g/dL RDW Std Deviation 48.4 H (36.4-46.3) fL RDW Coeff of Artemio 15.4 H (11.5-14.5) % Plt Count 276 (130-400) K/uL MPV 9.3 L (9.4-12.3) fL PT (9.0-12.0) Seconds INR (0.9-1.1) APTT (21.0-31.0) Seconds PTT Ratio Sodium (136-145) mmol/L Potassium (3.5-5.1) mmol/L Chloride (98-107) mmol/L Carbon Dioxide (21-32) mmol/L Anion Gap (3-11) BUN (6-23) mg/dl Creatinine (0.6-1.2) mg/dl Est Cr Clr Drug Dosing ml/min Est GFR ( Amer) ml/min Est GFR (Non-Af Amer) ml/min BUN/Creatinine Ratio (10-20) Glucose (70-99(Fasting)) mg/dl Calcium (8.5-10.1) mg/dl Total Bilirubin (0.2-1.0) mg/dl AST (13-39) U/L ALT (7-52) U/L Alkaline Phosphatase (34-104) U/L Total Protein (6.0-8.3) gm/dl Albumin (3.4-5.0) gm/dl Globulin (2.5-4.0) gm/dl Albumin/Globulin Ratio (0.9-2) TSH (0.300-4.500) uIu/ml POC Stool Occult Blood (Negative) SARS-CoV-2, RNA, NAAT (NEGATIVE) Blood Type Antibody Screen
[2021-09-05] MEDS ORDERED: ONDANSETRON INJ 2 MG/ML 2 ML VIAL IV PRN (09:51)
[2021-09-05] MEDS: HYDROCODONE/ACETAMOPHEN 5/325MG TAB PO PRN ×2 (10:04→14:26)
[2021-09-05] MEDS: FAMOTIDINE 20 MG TAB PO SCH ×3 (10:04→20:19)
[2021-09-05] MEDS: AMIODARONE 200 MG TAB PO SCH (10:04)
--- NOTE | 2021-09-05 10:18 | Anesthesiology Consultation ---
Date of Service September 05, 2021 Assessment & Plan (1) Encounter for pre-operative examination: Chart Review Chart Review: Acceptable Risk for Surgery History Surgery Operation Date: 09/05/21 17:00 Proposed Procedures p Esophagogastroduodenoscopy Dr Louis Myers, Height/Weight Height: 5 ft 4 in Weight: 143.3 kg Allergies Allergy/AdvReac Type Severity Reaction Status Date / Time celecoxib Allergy Intermediate Hives Verified 09/04/21 21:26 latex Allergy Intermediate RASH Verified 09/04/21 21:26 lisinopril Allergy Intermediate Cough Verified 09/04/21 21:26 Medications Home Medications Medication Instructions Recorded Confirmed Last Taken acetaminophen 325 mg tablet 2 tab PO Q6H PRN Pain 10/22/17 09/04/21 07/01/18 16:00 aspirin 81 mg tablet,delayed 81 mg PO QAM 10/22/17 09/04/21 09/04/21 release (Vonda Low Dose Aspirin) cholecalciferol (vitamin D3) 25 1,000 units PO QAM 10/22/17 09/04/21 09/04/21 mcg (1,000 unit) capsule cyanocobalamin (vitamin B-12) 1,000 mcg sublingual QAM 10/22/17 09/04/21 09/04/21 1,000 mcg sublingual tablet losartan 100 mg tablet 100 mg PO QAM 10/22/17 09/04/21 09/04/21 warfarin 5 mg tablet See Rx Instructions .Route .COMPLEX 10/22/17 09/04/21 09/03/21 amlodipine 2.5 mg tablet 2.5 mg PO QAM 07/02/18 09/04/21 09/04/21 amiodarone 200 mg tablet 200 mg PO QAM 12/02/19 09/05/21 09/04/21 atorvastatin 40 mg tablet (Lipitor) 40 mg PO HS 12/02/19 09/04/21 09/03/21 metoprolol succinate 25 mg 25 mg PO QAM 12/02/19 09/04/21 09/04/21 tablet,extended release 24 hr escitalopram oxalate 20 mg tablet 20 mg PO QPM 07/12/20 09/04/21 09/03/21 famotidine 20 mg tablet 20 mg PO BID 07/12/20 09/04/21 09/04/21 08:00 fluticasone propionate 50 2 spray intranasal DAILY PRN 05/19/21 09/04/21 Unknown mcg/actuation nasal Congestion spray,suspension levothyroxine 50 mcg tablet 50 mcg PO DAILYBB 05/19/21 09/04/21 09/04/21 omeprazole 20 mg capsule,delayed 20 mg PO AMHS 05/19/21 09/04/21 09/04/21 08:00 release furosemide 20 mg tablet (Lasix) 20 mg PO DAILY PRN edema #10 tabs 05/24/21 09/04/21 Unknown Active Medications Generic Name Dose Route Start Last Admin Trade Name Freq PRN Reason Stop Dose Admin Hydrocodone Bitart/Acetaminophen 1 tab 09/04/21 23:34 09/05/21 10:04 Hydrocodone/Acetamophen 5/325mg Tab PO 09/18/21 23:33 1 tab Q4H PRN Administration severe pain (7-10) Amiodarone HCl 200 mg 09/05/21 09:00 09/05/21 10:04 Amiodarone 200 Mg Tab PO 10/05/21 08:59 200 mg DAILY SAIM Administration Atorvastatin Calcium 40 mg 09/04/21 23:34 09/05/21 00:04 Atorvastatin 40 Mg Tab PO 10/04/21 23:33 40 mg HS SAMI Administration Escitalopram Oxalate 20 mg 09/04/21 23:34 09/05/21 00:04 Escitalopram Oxalate 20 Mg Tab PO 10/04/21 23:33 20 mg QPM SAMI Administration Famotidine 20 mg 09/04/21 23:34 09/05/21 10:04 Famotidine 20 Mg Tab PO 10/04/21 23:33 20 mg BID SAMI Administration Pantoprazole Sodium 40 mg/ 100 mls @ 20 mls/hr 09/05/21 05:30 09/05/21 10:10 Dextrose IV 10/05/21 05:29 8 mg/hr Q5H SAMI 20 mls/hr Administration 8 MG/HR Sodium Chloride 1,000 mls @ 125 mls/hr 09/05/21 06:15 09/05/21 10:09 Nss 1000ml IV 09/05/21 22:14 125 mls/hr .Q8H SAMI Administration Levothyroxine Sodium 50 mcg 09/05/21 06:30 09/05/21 06:29 Levothyroxine Sodium 50 Mcg Tablet PO 10/05/21 06:29 50 mcg DAILYBB SAMI Administration Ondansetron HCl 4 mg 09/05/21 09:51 09/05/21 10:06 Ondansetron Inj 2 Mg/Ml 2 Ml Vial IV 10/05/21 09:50 4 mg Q6H PRN Administration Nausea And Vomiting Past Medical History Medical History Atrial fibrillation Paroxysmal atrial fibrillation, on rhythm control strategy with dofetilide, Coumadin (entered by Dr Borges 10/22/17) CAD (coronary artery disease) Hx cardiac cath 2015: coronary arteries have diffuse minor irregularities Depression GERD (gastroesophageal reflux disease) H/O cholecystitis H/O cholecystitis HLD (hyperlipidemia) HTN (hypertension) Hx pulmonary embolism 2014 NSTEMI (non-ST elevated myocardial infarction) Obesity JALEN (obstructive sleep apnea) Paroxysmal atrial fibrillation Stress-induced cardiomyopathy Takotsubo cardiomyopathy Past Family History Family History Father , in 60's of myocardial infarction Myocardial infarction, Onset Age: 62 Brother Myocardial infarction, Onset Age: 68 Other Diabetes Hypertension Past Surgical History Surgical History H/O carpal tunnel repair H/O carpal tunnel repair H/O wisdom tooth extraction H/O: hysterectomy H/O: hysterectomy Hx of cardiac catheterization Hx of cardiac catheterization Angiographically normal coronary arteries, 10/22/17, [facility]. History, echocardiogram, cardiac catheterization data consistent with atypical presentation of stress-induced cardiomyopathy with normal apical wall motion, and hypokinesis to akinesis of the basal left ventricular myocardial segments Social History Smoking Status: Unknown if ever smoked Hx Alcohol Use: No Hx Substance Use: No substance use type: does not use Physical Exam Vital Signs Last Vital Signs Temp 36.4 C L 09/05/21 03:47 Pulse 62 09/05/21 06:30 Resp 16 09/05/21 06:30 BP 106/50 L 09/05/21 06:30 Pulse Ox 97 09/05/21 06:30 O2 Del Method 09/05/21 03:47 O2 Flow Rate 2 09/05/21 03:47 Testing Laboratory Results 09/05/21 06:10 09/05/21 06:10 PT 31.4 Seconds (9.0-12.0) H 09/05/21 06:10 INR 3.1 (0.9-1.1) H 09/05/21 06:10 APTT 43.9 Seconds (21.0-31.0) H 09/04/21 19:48 Blood Type O Positive 09/04/21 19:54 Antibody Screen NEGATIVE 09/04/21 19:54 Electrocardiogram Date: 09/04/21 atrial paced rate 69 Echocardiogram Date: 05/20/21 EF: 60-65% LV Function: normal Valvular Disease: + no significant valvular disease
[2021-09-05] MEDS ORDERED: PROPOFOL IV EMULSION 10 MG/ML 20 ML VIAL IV ONE (11:37)
[2021-09-05] MEDS ORDERED: LIDOCAINE 2% MPF LOCAL 5 ML VIAL INFIL ONE (11:37)
--- NOTE | 2021-09-05 11:39 | GI REPORT ---
Patient Name: Barbara Banerjee Procedure Date: 09/05/2021 11:25 AM Date of : 1950 Admit Type: Inpatient Age: 70 Gender: Female Attending MD: Jong Myers DO Procedure: Upper GI endoscopy Providers: Jong Myers DO Referring MD: Fabio Barry Md Indications: Melena Medicines: Monitored Anesthesia Care Complications: No immediate complications. Estimated blood loss: Minimal. Estimated Blood Loss: Estimated blood loss was minimal. Procedure: Pre-Anesthesia Assessment: - Prior to the procedure, a History and Physical was performed, and patient medications, allergies and sensitivities were reviewed. The patient's tolerance of previous anesthesia was reviewed. - The risks and benefits of the procedure and the sedation options and risks were discussed with the patient. All questions were answered and informed consent was obtained. - Patient identification and proposed procedure were verified prior to the procedure by the physician, the nurse and the corrosion control technician. The procedure was verified in the procedure room. - Pre-procedure physical examination revealed no contraindications to sedation. - ASA Grade Assessment: III - A patient with severe systemic disease. - After reviewing the risks and benefits, the patient was deemed in satisfactory condition to undergo the procedure. - The anesthesia plan was to use monitored anesthesia care (MAC). - Immediately prior to administration of medications, the patient was re-assessed for adequacy to receive sedatives. - The heart rate, respiratory rate, oxygen saturations, blood pressure, adequacy of pulmonary ventilation, and response to care were monitored throughout the procedure. - The physical status of the patient was re-assessed after the procedure. After obtaining informed consent, the endoscope was passed under direct vision. Throughout the procedure, the patient's blood pressure, pulse, and oxygen saturations were monitored continuously. The Endoscope was introduced through the mouth, and advanced to the third part of duodenum. The upper GI endoscopy was accomplished without difficulty. The patient tolerated the procedure well. Findings: The examined esophagus was normal. A small hiatal hernia was found. The proximal extent of the gastric folds (end of tubular esophagus) was 36 cm from the incisors. The hiatal narrowing was 38 cm from the incisors. The Z-line was 36 cm from the incisors. The gastric fundus, gastric body, incisura and gastric antrum were normal. The examined duodenum was normal. Impression: - Normal esophagus. - Small hiatal hernia. - Normal gastric fundus, gastric body, incisura and antrum. - Normal examined duodenum. - No specimens collected. Recommendation: - [facility]. - Melena is likely related to the patient's high INR as an outpatient. Given the recurrent nature of her symptoms I think it would be prudent to make arrangements for an outpatient colonoscopy as recommended during the last presentation in May - Perform a colonoscopy at appointment to be scheduled (outpatient). Jong Myers D.O. Jong Myers, 09/05/2021 11:39:02 AM This report has been signed electronically. Note Initiated On: 09/05/2021 11:25 AM Number of Addenda: 0 I attest to the content of the Intraoperative Record and orders documented therein, exceptions below {[id number]}
--- NOTE | 2021-09-05 11:40 | Communication Note ---
Date of Service: September 05, 2021 The patient underwent upper endoscopy this morning for evaluation of recurrent melena. The patient's examination was normal aside from a small hiatal hernia. There was no evidence of bleeding from the upper digestive tract. As mentioned during her presentation in May I think it would be prudent to make arrangements for an outpatient colonoscopy. Her melena is most likely related to her high INR as it was greater than 4 upon admission to the hospital last evening. Recommendations Advance diet as tolerated Outpatient colonoscopy to be scheduled Would evaluate the patient's long-term need for anticoagulation and determine best range for her INR.
--- NOTE | 2021-09-05 11:53 | Anesthesiology Progress Note ---
Date of Service September 05, 2021 Anesthesia Post Procedure Vital Signs Vital Signs: Temp Pulse Pulse Resp BP BP Pulse Ox 09/05/21 11:40 68 20 136/65 90 09/05/21 11:15 36.1 C L 76 18 176/89 H 95 09/05/21 06:30 62 16 106/50 L 97 09/05/21 06:00 60 17 09/05/21 05:30 60 21 94 09/05/21 05:00 60 32 H 96 09/05/21 05:00 106/50 L 09/05/21 04:30 60 16 96 09/05/21 04:00 61 19 97 09/05/21 04:00 100/48 L 09/05/21 03:30 60 23 94 09/05/21 03:01 100/32 L 09/05/21 03:01 60 20 96 09/05/21 03:00 60 15 97 09/05/21 02:30 60 19 96 09/05/21 02:06 62 18 95 09/05/21 02:06 111/37 L 09/05/21 02:00 94 09/05/21 02:00 75/47 L 09/05/21 01:30 62 21 95 09/05/21 01:30 138/76 09/05/21 03:47 36.4 C L 60 24 89/45 L 96 09/05/21 01:00 60 20 135/60 94 09/05/21 00:30 64 21 121/44 L 93 09/05/21 00:09 09/05/21 00:02 60 18 163/57 H 94 09/04/21 23:31 60 13 124/44 L 93 09/04/21 23:00 60 14 128/52 L 94 09/04/21 22:31 60 13 130/55 L 93 09/04/21 22:01 61 13 131/54 L 95 09/04/21 21:30 62 18 128/52 L 96 09/04/21 21:01 60 14 128/52 L 93 09/04/21 20:31 61 14 130/56 L 95 09/04/21 20:16 67 21 124/39 L 95 09/04/21 20:10 95 09/04/21 18:44 36.3 C L 81 18 164/84 H 93 Pulse Ox O2 Del Method O2 Del Method O2 Flow Rate 09/05/21 11:40 Room Air 09/05/21 11:15 Room Air 09/05/21 06:30 09/05/21 06:00 09/05/21 05:30 09/05/21 05:00 09/05/21 05:00 09/05/21 04:30 09/05/21 04:00 09/05/21 04:00 09/05/21 03:30 09/05/21 03:01 09/05/21 03:01 09/05/21 03:00 09/05/21 02:30 09/05/21 02:06 09/05/21 02:06 09/05/21 02:00 09/05/21 02:00 09/05/21 01:30 09/05/21 01:30 09/05/21 03:47 Nasal Cannula 2 09/05/21 01:00 09/05/21 00:30 09/05/21 00:09 94 Room Air 09/05/21 00:02 09/04/21 23:31 09/04/21 23:00 09/04/21 22:31 09/04/21 22:01 09/04/21 21:30 09/04/21 21:01 09/04/21 20:31 09/04/21 20:16 09/04/21 20:10 Room Air 09/04/21 18:44 Room Air Pain Intensity Abdomen: Pain Intensity: 7 Transfer of Care Handoff Completed per policy Notes Mental Status: alert / awake / arousable Patient Amnestic to Procedure: Yes Nausea / Vomiting: adequately controlled Pain: adequately controlled Airway Patency, RR, SpO2: stable & adequate BP & HR: stable & adequate Hydration State: stable & adequate Anesthetic Complications: no major complications apparent
--- NOTE | 2021-09-05 15:03 | Hospitalist Progress Note ---
Date of Service September 05, 2021 Assessment & Plan (1) Melena: Plan: 1 episode of melena reported - has history of melena and possible gastritis - s/p EGD with GI without significant findings - recommend discussion about need for warfarin going forward - will consider changing to apixaban if no other contraindication - hgb stable - will trend for now (2) Paroxysmal A-fib: Plan: She has a history of paroxysmal atrial fibrillation on chronic anticoagulation with warfarin. - Current INR is 3.6. - Continue to trend INR and give hemodynamic support - toprol XL was held initially - restart tomorrow AM - discussion about risks and benefits of continue warfarin - will consider switching to apixaban - daily INR while inpatient (3) Anemia: Plan: Chronic, baseline. Repeat H&H in setting of possible melena (4) Depression: Plan: Chronic, stable, continue Lexapro per home regimen. (5) Hypothyroidism: Plan: Chronic, TSH pending, continue home levothyroxine (6) HTN (hypertension): Plan: - BP stable, hgb stable - will restart losartan (7) H/O cardiac pacemaker: (8) DVT prophylaxis: Plan: SCDs, chemoprophylaxis is contraindicated in setting of possible GI bleed and supratherapeutic INR Full code Disposition-admit to medicine Fabio Patterson MD [facility] Medicine Admission and Anticipated Discharge Date Admission Date: September 04, 2021 Subjective 70 yo F on coumadin for afib presents with reports of black stool x 1 day. INR found to be supratherapeutic, given IV vitamin K in ED. Started on IV PPI. GI saw her and did EGD without any evidence of bleeding and otherwise unremarkable. She denied any complaints this morning. Denied chest pain, shortness of breath, n/v/d, abdominal pain, cough, dysuria. Review of Systems Review of Systems: All systems reviewed & are unremarkable except as noted in Subjective All systems were reviewed and negative except as indicated above. Physical Exam Constitutional: WD/WN, vitals as above Neck: normal visual inspection Respiratory: normal respiratory effort, lungs clear to auscultation Cardiovascular: Rate/Rhythm: regular rate and regular rhythm Gastrointestinal (Abdomen): normal bowel sounds, soft, nontender, no hepatosplenomegaly Skin: no rashes, warm and dry Results & Data Results & Data ([facility]) Vital Signs (Past 12 Hours) Vital Signs Temp Pulse Pulse Resp BP BP Pulse Ox 09/05/21 12:38 36.8 C 61 18 168/72 H 94 09/05/21 12:10 60 20 134/68 92 09/05/21 11:55 60 20 129/66 90 09/05/21 11:40 68 20 136/65 90 09/05/21 11:15 36.1 C L 76 18 176/89 H 95 09/05/21 06:30 62 16 106/50 L 97 09/05/21 06:00 60 17 09/05/21 05:30 60 21 94 09/05/21 05:00 60 32 H 96 09/05/21 05:00 106/50 L 09/05/21 04:30 60 16 96 09/05/21 04:00 61 19 97 09/05/21 04:00 100/48 L 09/05/21 03:30 60 23 94 09/05/21 03:01 100/32 L 09/05/21 03:01 60 20 96 09/05/21 03:00 60 15 97 09/05/21 03:47 36.4 C L 60 24 89/45 L 96 O2 Del Method O2 Flow Rate 09/05/21 12:38 Room Air 09/05/21 12:10 Room Air 09/05/21 11:55 Room Air 09/05/21 11:40 Room Air 09/05/21 11:15 Room Air 09/05/21 06:30 09/05/21 06:00 09/05/21 05:30 09/05/21 05:00 09/05/21 05:00 09/05/21 04:30 09/05/21 04:00 09/05/21 04:00 09/05/21 03:30 09/05/21 03:01 09/05/21 03:01 09/05/21 03:00 09/05/21 03:47 Nasal Cannula 2 Laboratory Results Short CBC 09/04/21 09/05/21 Range/Units 19:48 06:10 WBC 6.84 5.08 (4.8-10.8) K/ul Hgb 11.8 L 10.6 L (12.0-16.0) g/dl Hct 36.8 33.2 L (34.1-44.9) % Plt Count 276 206 (130-400) K/uL BMP 09/04/21 09/05/21 19:48 06:10 Sodium 141 141 Potassium 3.6 3.5 Chloride 106 107 Carbon Dioxide 26 27 BUN 18 20 Creatinine 1.04 0.92 Glucose 98 110 H Calcium 8.2 L 7.7 L Liver Function 09/04/21 Range/Units 19:48 Total Bilirubin 0.4 (0.2-1.0) mg/dl AST 18 (13-39) U/L ALT 18 (7-52) U/L Alkaline Phosphatase 135 H (34-104) U/L Albumin 3.9 (3.4-5.0) gm/dl Medications Administered Current Inpatient Medications Acetaminophen (Acetaminophen 325 Mg Tab) 650 mg PO Q4H PRN PRN Reason: Pain or Fever Stop: 10/04/21 23:33 Hydrocodone Bitart/Acetaminophen (Hydrocodone/Acetamophen 5/325mg Tab) 1 tab PO Q4H PRN PRN Reason: severe pain (7-10) Stop: 09/18/21 23:33 Last Admin: 09/05/21 14:26 Dose: 1 tab Amiodarone HCl (Amiodarone 200 Mg Tab) 200 mg PO DAILY SAMI Stop: 10/05/21 08:59 Last Admin: 09/05/21 10:04 Dose: 200 mg Atorvastatin Calcium (Atorvastatin 40 Mg Tab) 40 mg PO HS SAMI Stop: 10/04/21 23:33 Last Admin: 09/05/21 00:04 Dose: 40 mg Escitalopram Oxalate (Escitalopram Oxalate 20 Mg Tab) 20 mg PO QPM SAMI Stop: 10/04/21 23:33 Last Admin: 09/05/21 00:04 Dose: 20 mg Famotidine (Famotidine 20 Mg Tab) 20 mg PO BID SAMI Stop: 10/04/21 23:33 Last Admin: 09/05/21 10:04 Dose: 20 mg Pantoprazole Sodium 40 mg/ (Dextrose) 100 mls @ 20 mls/hr IV Q5H SAMI Stop: 10/05/21 05:29 Last Infusion: 09/05/21 12:40 Dose: 8 mg/hr, 20 mls/hr Sodium Chloride (Nss 1000ml) 1,000 mls @ 125 mls/hr IV .Q8H SAMI Stop: 09/05/21 22:14 Last Infusion: 09/05/21 12:40 Dose: 125 mls/hr Levothyroxine Sodium (Levothyroxine Sodium 50 Mcg Tablet) [facility]: 10/05/21 06:29 Last Admin: 09/05/21 06:29 Dose: 50 mcg Metoprolol Succinate (Metoprolol Succ 25mg Ext Rel Tab) [facility]: 10/05/21 08:59 Morphine Sulfate (Morphine Sulfate 2 Mg/Ml Carp) 2 mg IV Q4H PRN PRN Reason: severe pain (7-10) Stop: 09/18/21 23:33 Ondansetron HCl (Ondansetron Inj 2 Mg/Ml 2 Ml Vial) 4 mg IV Q6H PRN PRN Reason: Nausea And Vomiting Stop: 10/05/21 09:50 Last Admin: 09/05/21 10:06 Dose: 4 mg (1) Anemia Anemia type: unspecified type Qualified Code(s): D64.9 - Anemia, unspecified
[2021-09-05] MEDS: MoRPHine SULFATE 2 MG/ML CARP IV PRN (20:20)
--- NOTE | 2021-09-05 21:53 | Electrocardiogram Report ---
Test Reason : Blood Pressure : / mmHG Vent. Rate : 069 BPM Atrial Rate : 069 BPM P-R Int : 196 ms QRS Dur : 098 ms QT Int : 464 ms P-R-T Axes : -29 003 011 degrees QTc Int : 497 ms Atrial-paced rhythm Cannot rule out Anterior infarct , age undetermined Prolonged QT Nonspecific ST abnormality Abnormal ECG When compared with ECG of 25-MAY-2021 13:21, No significant change was found Confirmed by Adrien Soliman ([id number]) on 09/05/2021 9:53:11 PM Referred By: REFERRED SELF Confirmed By:Adrien Soliman
[2021-09-06] MEDS: PANTOprazole 40 MG in DEXTROSE 5% 100 ML IV SCH ×3 (01:58→12:10)
[2021-09-06] MEDS: LEVOTHYROXINE SODIUM 50 MCG TABLET PO SCH (06:05)
[2021-09-06] MEDS: MoRPHine SULFATE 2 MG/ML CARP IV PRN (06:16)
[2021-09-06 06:28] LABS: Basophils # (auto) 0.02 K/uL (0-0.2); Basophils % (auto) 0.5 %; Eosinophils # (auto) 0.04 K/uL (0-0.50); Eosinophils % (auto) 0.9 %; Hematocrit (blood only) 32.4 % (34.1-44.9); Hemoglobin 10.1 g/dl (12.0-16.0); Immature Granulocytes # (auto) 0.01 K/uL (0.00-0.02); Immature Granulocytes % (auto) 0.2 %; Lymphocytes # (auto) 1.64 K/uL (1.2-3.4); Lymphocytes % (auto) 37.9 %; Mean Corpuscular Hemoglobin 27.9 pg (25.0-34.0); Mean Corpuscular Hgb Conc 31.2 g/dL (32.0-36.0); Mean Corpuscular Volume 89.5 fL (80.0-100.0); Mean Platelet Volume 9.4 fL (9.4-12.3); Monocytes # (auto) 0.32 K/uL (0.24-0.82); Monocytes % (auto) 7.4 %; Neutrophils % (auto) 53.1 %; Platelet Count 191 K/uL (130-400); RDW Coefficient of Variation 15.4 % (11.5-14.5); RDW Standard Deviation 50.1 fL (36.4-46.3); Red Blood Count 3.62 M/uL (3.93-5.22); White Blood Count 4.33 K/ul (4.8-10.8)
[2021-09-06 06:35] LABS: INR 1.2 (0.9-1.1); Prothrombin Time 12.5 Seconds (9.0-12.0)
[2021-09-06 06:53] LABS: Albumin Globulin Ratio 1.2 (0.9-2); Albumin Level 3.2 gm/dl (3.4-5.0); BUN Creatinine Ratio 15.5 (10-20); Bilirubin,Total 0.6 mg/dl (0.2-1.0); Calcium 7.6 mg/dl (8.5-10.1); Creatinine Clr Calc Pharmacy 72.5 ml/min; Est GFR (African American) 63.8 ml/min; Globulin 2.6 gm/dl (2.5-4.0); Magnesium 1.8 mg/dl (1.7-2.4); Phosphorus 2.5 mg/dl (2.5-4.9); Potassium 3.7 mmol/L (3.5-5.1); Total Protein 5.8 gm/dl (6.0-8.3)
[2021-09-06] MEDS: FAMOTIDINE 20 MG TAB PO SCH ×2 (08:08→20:52)
[2021-09-06] MEDS: LOSARTAN POTASSIUM 50 MG TAB PO SCH (08:08)
[2021-09-06] MEDS: AMIODARONE 200 MG TAB PO SCH (08:08)
[2021-09-06] MEDS ORDERED: APIXABAN 5 MG TABLET PO SCH (09:00)
[2021-09-06] MEDS: METOPROLOL SUCC 25MG EXT REL TAB PO SCH (09:31)
[2021-09-06] MEDS: DOCUSATE SODIUM/SENNA 50/8.6MG TAB PO SCH (09:31)
[2021-09-06] MEDS: APIXABAN 5 MG TABLET PO SCH ×2 (09:31→20:53)
[2021-09-06] MEDS: POLYETHYLENE (MIRALAX) 17 GM PACK PO SCH (09:32)
--- NOTE | 2021-09-06 11:54 | Hospitalist Progress Note ---
Date of Service September 06, 2021 Assessment & Plan (1) Abdominal pain: Plan: - somewhat mild, diffuse - likely related to constipation as patient has been having small hard stools recently - given good bowel regimen - will monitor for now - has outpatient follow up with GI (2) Melena: Plan: 1 episode of melena reported - has history of melena and possible gastritis - s/p EGD with GI without significant findings - recommend and scheduled for outpatient colonoscopy - started on apixaban 5mg BID today 09/06/2021 - hgb stable - will trend (3) Paroxysmal A-fib: Plan: She has a history of paroxysmal atrial fibrillation on chronic anticoagulation with warfarin. - Current INR is 3.6. - Continue to trend INR and give hemodynamic support - toprol XL was held initially - restart tomorrow AM - started on apixaban 5mg BID (4) Anemia: Plan: Chronic, baseline. Repeat H&H in setting of possible melena (5) Depression: Plan: Chronic, stable, continue Lexapro per home regimen. (6) Hypothyroidism: Plan: Chronic, TSH pending, continue home levothyroxine (7) HTN (hypertension): Plan: - BP stable, hgb stable - will restart losartan (8) H/O cardiac pacemaker: (9) DVT prophylaxis: Plan: SCDs, apixaban Full code Disposition- med/surg - likely stable for discharge today Fabio Patterson MD Hospital Medicine Admission and Anticipated Discharge Date Admission Date: September 04, 2021 Subjective 70 yo F on coumadin for afib presents with reports of black stool x 1 day. INR found to be supratherapeutic, given IV vitamin K in ED. Started on IV PPI. GI saw her and did EGD without any evidence of bleeding and otherwise unremarkable. She denied any complaints this morning except vague and diffuse abdominal pain, mostly on palpitations. Reports being somewhat constipated. Denied chest pain, shortness of breath, n/v/d, cough, dysuria. Review of Systems Review of Systems: All systems reviewed & are unremarkable except as noted in Subjective All systems were reviewed and negative except as indicated above. Physical Exam Constitutional: WD/WN, vitals as above Neck: normal visual inspection Respiratory: normal respiratory effort, lungs clear to auscultation Cardiovascular: Rate/Rhythm: regular rate and regular rhythm Gastrointestinal (Abdomen): Inspection/Auscultation: abdomen normal to inspection, normal bowel sounds and + significant pannus Percussion/Palpation: + abdomen tender (diffusely but more in upper quadrants) and abdomen soft; no guarding and abdomen not rigid Skin: no rashes, warm and dry Results & Data Results & Data ([facility]) Vital Signs (Past 12 Hours) Vital Signs Temp Pulse Pulse Pulse Resp BP Pulse Ox 09/06/21 11:40 36.6 C 63 16 116/58 L 95 09/06/21 07:30 36.5 C 63 18 118/68 96 09/06/21 07:26 78 09/06/21 03:26 36.3 C L 61 20 96/57 L 95 09/06/21 03:00 70 16 94 09/05/21 23:53 96 O2 Del Method O2 Flow Rate 09/06/21 11:40 Room Air 09/06/21 07:30 Room Air 09/06/21 07:26 09/06/21 03:26 CPAP 09/06/21 03:00 2 09/05/21 23:53 2 Laboratory Results Short CBC 09/06/21 Range/Units 06:00 WBC 4.33 L (4.8-10.8) K/ul Hgb 10.1 L (12.0-16.0) g/dl Hct 32.4 L (34.1-44.9) % Plt Count 191 (130-400) K/uL BMP 09/06/21 06:00 Sodium 142 Potassium 3.7 Chloride 110 H Carbon Dioxide 28 BUN 16 Creatinine 1.03 Glucose 101 H Calcium 7.6 L Liver Function 09/06/21 Range/Units 06:00 Total Bilirubin 0.6 (0.2-1.0) mg/dl AST 14 (13-39) U/L ALT 12 (7-52) U/L Alkaline Phosphatase 99 (34-104) U/L Albumin 3.2 L (3.4-5.0) gm/dl Medications Administered Current Inpatient Medications Acetaminophen (Acetaminophen 325 Mg Tab) 650 mg PO Q4H PRN PRN Reason: Pain or Fever Stop: 10/04/21 23:33 Hydrocodone Bitart/Acetaminophen (Hydrocodone/Acetamophen 5/325mg Tab) 1 tab PO Q4H PRN PRN Reason: severe pain (7-10) Stop: 09/18/21 23:33 Last Admin: 09/05/21 14:26 Dose: 1 tab Amiodarone HCl (Amiodarone 200 Mg Tab) 200 mg PO DAILY [facility] Stop: 10/05/21 08:59 Last Admin: 09/06/21 08:08 Dose: 200 mg Apixaban (Apixaban 5 Mg Tablet) 5 mg PO BID [facility] Stop: 10/06/21 08:59 Last Admin: 09/06/21 09:31 Dose: 5 mg Atorvastatin Calcium (Atorvastatin 40 Mg Tab) 40 mg PO HS SAMI Stop: 10/04/21 23:33 Last Admin: 09/05/21 20:19 Dose: 40 mg Escitalopram Oxalate (Escitalopram Oxalate 20 Mg Tab) 20 mg PO QPM SAMI Stop: 10/04/21 23:33 Last Admin: 09/05/21 20:20 Dose: 20 mg Famotidine (Famotidine 20 Mg Tab) 20 mg PO BID [facility] Stop: 10/04/21 23:33 Last Admin: 09/06/21 08:08 Dose: 20 mg Pantoprazole Sodium 40 mg/ (Dextrose) 100 mls @ 20 mls/hr IV Q5H [facility] Stop: 10/05/21 05:29 Last Admin: 09/06/21 07:13 Dose: 8 mg/hr, 20 mls/hr Levothyroxine Sodium (Levothyroxine Sodium 50 Mcg Tablet) 50 mcg PO DAILYBB [facility] Stop: 10/05/21 06:29 Last Admin: 09/06/21 06:05 Dose: 50 mcg Losartan Potassium (Losartan Potassium 50 Mg Tab) 100 mg PO QAM [facility] Stop: 10/06/21 08:59 Last Admin: 09/06/21 08:08 Dose: 100 mg Metoprolol Succinate (Metoprolol Succ 25mg Ext Rel Tab) [facility] [place] Stop: 10/05/21 08:59 Last Admin: 09/06/21 09:31 Dose: 25 mg Morphine Sulfate (Morphine Sulfate 2 Mg/Ml Carp) 2 mg IV Q4H PRN PRN Reason: severe pain (7-10) Stop: 09/18/21 23:33 Last Admin: 09/06/21 06:16 Dose: 2 mg Ondansetron HCl (Ondansetron Inj 2 Mg/Ml 2 Ml Vial) 4 mg IV Q6H PRN PRN Reason: Nausea And Vomiting Stop: 10/05/21 09:50 Last Admin: 09/05/21 10:06 Dose: 4 mg Polyethylene Glycol (Polyethylene (Miralax) 17 Gm Pack) 17 gm PO DAILY [facility] Stop: 09/08/21 08:59 Last Admin: 09/06/21 09:32 Dose: 17 gm Senna/Docusate Sodium (Docusate Sodium/Senna 50/8.6mg Tab) 1 tab PO QAM SAMI Stop: 10/06/21 08:59 Last Admin: 09/06/21 09:31 Dose: 1 tab (1) Anemia Anemia type: unspecified type Qualified Code(s): D64.9 - Anemia, unspecified
[2021-09-06] MEDS: HYDROCODONE/ACETAMOPHEN 5/325MG TAB PO PRN (15:02)
[2021-09-06] MEDS: ATORVASTATIN 40 MG TAB PO SCH (20:53)
[2021-09-06] MEDS: ESCITALOPRAM OXALATE 20 MG TAB PO SCH (20:53)
[2021-09-07] MEDS: LEVOTHYROXINE SODIUM 50 MCG TABLET PO SCH (06:19)
--- NOTE | 2021-09-07 08:07 | Hospitalist Progress Note ---
Date of Service September 07, 2021 Assessment & Plan (1) Abdominal pain: Plan: - somewhat mild, diffuse - likely related to constipation as patient has been having small hard stools recently - given good bowel regimen - will monitor for now - has outpatient follow up with GI (2) Melena: Plan: 1 episode of melena reported - has history of melena and possible gastritis - s/p EGD with GI without significant findings - recommend and scheduled for outpatient colonoscopy - started on apixaban 5mg BID today 09/06/2021 - hgb stable - will trend (3) Paroxysmal A-fib: Plan: She has a history of paroxysmal atrial fibrillation on chronic anticoagulation with warfarin. - Current INR is 3.6. - Continue to trend INR and give hemodynamic support - toprol XL was held initially - restart tomorrow AM - started on apixaban 5mg BID (4) Anemia: Plan: Chronic, baseline. Repeat H&H in setting of possible melena (5) Depression: Plan: Chronic, stable, continue Lexapro per home regimen. (6) Hypothyroidism: Plan: Chronic, TSH pending, continue home levothyroxine (7) HTN (hypertension): Plan: - BP stable, hgb stable - will restart losartan (8) H/O cardiac pacemaker: (9) DVT prophylaxis: Plan: SCDs, apixaban Full code Disposition- med/surg Fabio Patterson MD [facility] Medicine Admission and Anticipated Discharge Date Admission Date: September 04, 2021 Subjective 70 yo F on coumadin for afib presents with reports of black stool x 1 day. INR found to be supratherapeutic, given IV vitamin K in ED. Started on IV PPI. GI saw her and did EGD without any evidence of bleeding and otherwise unremarkable. hgb remained stable without any other episodes of melena. She remained stable. Reports being somewhat constipated. Denied chest pain, shortness of breath, n/v/d, cough, dysuria. Still complains of abdominal pain and now with dizziness and feeling unsteady. Review of Systems Review of Systems: All systems reviewed & are unremarkable except as noted in Subjective All systems were reviewed and negative except as indicated above. Physical Exam Constitutional: WD/WN, vitals as above Eyes: PERRL, conjunctivae normal, anicteric sclerae Neck: normal visual inspection Respiratory: normal respiratory effort, lungs clear to auscultation Cardiovascular: Rate/Rhythm: regular rate and regular rhythm Gastrointestinal (Abdomen): normal bowel sounds, soft, nontender, no hepatosplenomegaly Inspection/Auscultation: abdomen normal to inspection, normal bowel sounds and + significant pannus Percussion/Palpation: + abdomen tender (diffusely but more in upper quadrants) and abdomen soft; no guarding and abdomen not rigid Skin: no rashes, warm and dry Results & Data Results & Data ([facility]) Vital Signs (Past 12 Hours) Vital Signs Temp Pulse Pulse Resp BP BP Pulse Ox 09/07/21 07:58 36.6 C 68 18 186/81 H 92 09/07/21 04:00 36.4 C L 81 18 122/56 L 97 09/07/21 02:35 76 21 95 09/06/21 22:20 60 09/06/21 23:24 36.8 C 63 18 110/63 95 09/06/21 21:35 91 H 22 96 O2 Del Method O2 Flow Rate 09/07/21 07:58 Room Air 09/07/21 04:00 CPAP 09/07/21 02:35 2 09/06/21 22:20 09/06/21 23:24 BiPAP 09/06/21 21:35 2 Medications Administered Current Inpatient Medications Acetaminophen (Acetaminophen 325 Mg Tab) 650 mg PO Q4H PRN PRN Reason: Pain or Fever Stop: 10/04/21 23:33 Hydrocodone Bitart/Acetaminophen (Hydrocodone/Acetamophen 5/325mg Tab) 1 tab PO Q4H PRN PRN Reason: severe pain (7-10) Stop: 09/18/21 23:33 Last Admin: 09/06/21 15:02 Dose: 1 tab Amiodarone HCl (Amiodarone 200 Mg Tab) 200 mg PO DAILY [facility] Stop: 10/05/21 08:59 Last Admin: 09/06/21 08:08 Dose: 200 mg Apixaban (Apixaban 5 Mg Tablet) 5 mg PO BID [facility] Stop: 10/06/21 08:59 Last Admin: 09/06/21 20:53 Dose: 5 mg Atorvastatin Calcium (Atorvastatin 40 Mg Tab) 40 mg PO HS [facility] Stop: 10/04/21 23:33 Last Admin: 09/06/21 20:53 Dose: 40 mg Escitalopram Oxalate (Escitalopram Oxalate 20 Mg Tab) 20 mg PO QPM [facility] Stop: 10/04/21 23:33 Last Admin: 09/06/21 20:53 Dose: 20 mg Famotidine (Famotidine 20 Mg Tab) 20 mg PO BID [facility] Stop: 10/04/21 23:33 Last Admin: 09/06/21 20:52 Dose: 20 mg Levothyroxine Sodium (Levothyroxine Sodium 50 Mcg Tablet) 50 mcg PO DAILYBB [facility] Stop: 10/05/21 06:29 Last Admin: 09/07/21 06:19 Dose: 50 mcg Losartan Potassium (Losartan Potassium 50 Mg Tab) 100 mg PO QAM [facility] Stop: 10/06/21 08:59 Last Admin: 09/06/21 08:08 Dose: 100 mg Metoprolol Succinate (Metoprolol Succ 25mg Ext Rel Tab) [facility] Stop: 10/05/21 08:59 Last Admin: 09/06/21 09:31 Dose: 25 mg Polyethylene Glycol (Polyethylene (Miralax) 17 Gm Pack) 17 gm PO DAILY [facility] Stop: 09/08/21 08:59 Last Admin: 09/06/21 09:32 Dose: 17 gm Senna/Docusate Sodium (Docusate Sodium/Senna 50/8.6mg Tab) 1 tab PO QAM [facility] Stop: 10/06/21 08:59 Last Admin: 09/06/21 09:31 Dose: 1 tab (1) Anemia Anemia type: unspecified type Qualified Code(s): D64.9 - Anemia, unspecified
[2021-09-07] MEDS: FAMOTIDINE 20 MG TAB PO SCH ×2 (08:27→20:05)
[2021-09-07] MEDS: APIXABAN 5 MG TABLET PO SCH ×2 (08:28→20:06)
[2021-09-07] MEDS: METOPROLOL SUCC 25MG EXT REL TAB PO SCH (08:28)
[2021-09-07] MEDS: DOCUSATE SODIUM/SENNA 50/8.6MG TAB PO SCH (08:28)
[2021-09-07] MEDS: AMIODARONE 200 MG TAB PO SCH (08:28)
[2021-09-07] MEDS: LOSARTAN POTASSIUM 50 MG TAB PO SCH (08:29)
[2021-09-07] MEDS: HYDROCODONE/ACETAMOPHEN 5/325MG TAB PO PRN (08:29)
[2021-09-07] MEDS: POLYETHYLENE (MIRALAX) 17 GM PACK PO SCH (08:30)
[2021-09-07] MEDS ORDERED: LACTATED RINGER'S 1,000 ML IV ONE (09:01)
[2021-09-07 09:29] LABS: Hematocrit (blood only) 33.4 % (34.1-44.9); Hemoglobin 10.3 g/dl (12.0-16.0); Mean Corpuscular Hemoglobin 27.6 pg (25.0-34.0); Mean Corpuscular Hgb Conc 30.8 g/dL (32.0-36.0); Mean Corpuscular Volume 89.5 fL (80.0-100.0); Platelet Count 191 K/uL (130-400); RDW Coefficient of Variation 15.5 % (11.5-14.5); RDW Standard Deviation 50.5 fL (36.4-46.3); Red Blood Count 3.73 M/uL (3.93-5.22); White Blood Count 5.24 K/ul (4.8-10.8)
[2021-09-07] MEDS: ACETAMINOPHEN 325 MG TAB PO PRN (20:06)
[2021-09-07] MEDS: ATORVASTATIN 40 MG TAB PO SCH (20:06)
[2021-09-07] MEDS: ESCITALOPRAM OXALATE 20 MG TAB PO SCH (20:06)
[2021-09-07] MEDS ORDERED: oxyCODONE HCL IR 5 MG TAB (IMMEDIATE RELEASE) PO STA (21:43)
[2021-09-07 22:26] LABS: Appearance Urine Clear (Clear); Bilirubin Urine Negative (Negative); Blood Urine Negative (Negative); Color Urine Yellow; Glucose Urine UA Negative (Negative); Ketones Urine Negative (Negative); Leukocyte Esterase Urine Negative (Negative); Nitrite Urine Negative (Negative); Protein Urine Negative (Negative); Specific Gravity Urine 1.016 (1.000-1.030); Urobilinogen Urine Negative (Negative); pH Urine 6.5 (4.5-7.5)
[2021-09-08] MEDS: LEVOTHYROXINE SODIUM 50 MCG TABLET PO SCH (05:52)
[2021-09-08] MEDS: METOPROLOL SUCC 25MG EXT REL TAB PO SCH (07:56)
[2021-09-08] MEDS: PANTOprazole 40 MG TAB PO SCH (07:56)
[2021-09-08] MEDS: LOSARTAN POTASSIUM 50 MG TAB PO SCH (07:56)
[2021-09-08] MEDS: DOCUSATE SODIUM/SENNA 50/8.6MG TAB PO SCH (07:57)
[2021-09-08] MEDS: APIXABAN 5 MG TABLET PO SCH ×2 (07:57→20:59)
[2021-09-08] MEDS: AMIODARONE 200 MG TAB PO SCH (07:57)
[2021-09-08] MEDS: FAMOTIDINE 20 MG TAB PO SCH ×2 (07:57→20:59)
[2021-09-08] MEDS: POLYETHYLENE (MIRALAX) 17 GM PACK PO SCH (07:59)
[2021-09-08] MEDS ORDERED: MECLIZINE 12.5 MG TAB PO STA (08:03)
[2021-09-08] MEDS: ACETAMINOPHEN 325 MG TAB PO PRN ×2 (08:05→21:00)
--- NOTE | 2021-09-08 12:23 | Hospitalist Progress Note ---
Date of Service September 08, 2021 Assessment & Plan (1) Dizziness: Plan: - patient feels dizzy and unsteady - ECG unremarkable without ischemic changes - s/p IVF without improvement - trial of meclizine unresponsive - CTH without contrast ordered - PT/OT (2) Abdominal pain: Plan: - somewhat mild, diffuse - likely related to constipation as patient has been having small hard stools recently - given good bowel regimen - will monitor for now - has outpatient follow up with GI (3) Melena: Plan: 1 episode of melena reported - has history of melena and possible gastritis - s/p EGD with GI without significant findings - recommend and scheduled for outpatient colonoscopy - started on apixaban 5mg BID today 09/06/2021 - hgb stable - will trend (4) Paroxysmal A-fib: Plan: She has a history of paroxysmal atrial fibrillation on chronic anticoagulation with warfarin. - Current INR is 3.6. - Continue to trend INR and give hemodynamic support - toprol XL was held initially - restart tomorrow AM - started on apixaban 5mg BID (5) Anemia: Plan: Chronic, baseline. Repeat H&H in setting of possible melena (6) Depression: Plan: Chronic, stable, continue Lexapro per home regimen. (7) Hypothyroidism: Plan: Chronic, TSH pending, continue home levothyroxine (8) HTN (hypertension): Plan: - BP stable, hgb stable - will restart losartan (9) H/O cardiac pacemaker: (10) DVT prophylaxis: Plan: SCDs, apixaban Full code Disposition- med/surg Fabio Patterson MD Hospital Medicine Admission and Anticipated Discharge Date Admission Date: September 04, 2021 Subjective 70 yo F on coumadin for afib presents with reports of black stool x 1 day. INR found to be supratherapeutic, given IV vitamin K in ED. Started on IV PPI. GI saw her and did EGD without any evidence of bleeding and otherwise unremarkable. hgb remained stable without any other episodes of melena. She remained stable. Denied chest pain, shortness of breath, n/v/d, cough, dysuria. Still complains of abdominal pain and now with dizziness and feeling unsteady. Review of Systems Review of Systems: All systems reviewed & are unremarkable except as noted in Subjective Physical Exam Eyes: PERRL, conjunctivae normal, anicteric sclerae Neurologic: patellar DTR's 2+ bilat, sensation intact and PERRL, EOMI, accommodation nl, no face palsy, no dysarthria CN's II-XI intact bilaterally, moves all extremities and awake Psychiatric: A+Ox3, euthymic affect Results & Data Results & Data ([facility]) Vital Signs (Past 12 Hours) Vital Signs Temp Pulse Pulse Resp BP BP Pulse Ox 09/08/21 11:37 36.7 C 66 19 162/71 H 95 09/08/21 08:40 36.6 C 62 19 174/92 H 96 09/08/21 03:10 65 16 95 09/08/21 03:07 36.9 C 64 18 122/72 96 O2 Del Method O2 Flow Rate 09/08/21 11:37 Room Air 09/08/21 08:40 Room Air 09/08/21 03:10 2 09/08/21 03:07 BiPAP Medications Administered Current Inpatient Medications Acetaminophen (Acetaminophen 325 Mg Tab) 650 mg PO Q4H PRN PRN Reason: Pain or Fever Stop: 10/04/21 23:33 Last Admin: 09/08/21 08:05 Dose: 650 mg Amiodarone HCl (Amiodarone 200 Mg Tab) 200 mg PO DAILY [facility] Stop: 10/05/21 08:59 Last Admin: 09/08/21 07:57 Dose: 200 mg Apixaban (Apixaban 5 Mg Tablet) 5 mg PO BID [facility] Stop: 10/06/21 08:59 Last Admin: 09/08/21 07:57 Dose: 5 mg Atorvastatin Calcium (Atorvastatin 40 Mg Tab) 40 mg PO HS [facility] Stop: 10/04/21 23:33 Last Admin: 09/07/21 20:06 Dose: 40 mg Escitalopram Oxalate (Escitalopram Oxalate 20 Mg Tab) 20 mg PO QPM [facility] Stop: 10/04/21 23:33 Last Admin: 09/07/21 20:06 Dose: 20 mg Famotidine (Famotidine 20 Mg Tab) 20 mg PO BID [facility] Stop: 10/04/21 23:33 Last Admin: 09/08/21 07:57 Dose: 20 mg Levothyroxine Sodium (Levothyroxine Sodium 50 Mcg Tablet) 50 mcg PO DAILYBB [facility] Stop: 10/05/21 06:29 Last Admin: 09/08/21 05:52 Dose: 50 mcg Losartan Potassium (Losartan Potassium 50 Mg Tab) [facility] [place] Stop: 10/06/21 08:59 Last Admin: 09/08/21 07:56 Dose: 100 mg Metoprolol Succinate (Metoprolol Succ 25mg Ext Rel Tab) 25 mg PO QAM [facility] Stop: 10/05/21 08:59 Last Admin: 09/08/21 07:56 Dose: 25 mg Pantoprazole Sodium (Pantoprazole 40 Mg Tab) [facility] [place] Stop: 10/08/21 08:59 Last Admin: 09/08/21 07:56 Dose: 40 mg Polyethylene Glycol (Polyethylene (Miralax) 17 Gm Pack) 17 gm PO DAILY [facility] Stop: 09/09/21 08:59 Last Admin: 09/08/21 07:59 Dose: 17 gm Senna/Docusate Sodium (Docusate Sodium/Senna 50/8.6mg Tab) 1 [facility] [place] Stop: 10/06/21 08:59 Last Admin: 09/08/21 07:57 Dose: 1 tab (1) Anemia Anemia type: unspecified type Qualified Code(s): D64.9 - Anemia, unspecified
--- NOTE | 2021-09-08 13:23 | CT Scan Report ---
HEAD CT NONCONTRAST CT DOSE: 729.78 mGycm HISTORY: dizziness TECHNIQUE: Multiaxial CT images of the head were performed without the use of intravenous contrast. A utomated exposure control was utilized for this study. A dose lowering technique was utilized adheri ng to the principles of ALARA. Comparison: Head CT 12/03/2019. Findings: The paranasal sinuses and mastoid air cells are clear. The calvarium and skull base are int act. The ventricles and sulci are within normal limits. There is no mass, hematoma, midline shift, or acute infarct. Impression: No acute intracranial abnormality. ACT 112: Negative or not required by law. Electronically signed by: Reynaldo Allison M.D. 09/08/2021 1:21 PM
[2021-09-08] MEDS: ATORVASTATIN 40 MG TAB PO SCH (20:59)
[2021-09-08] MEDS: ESCITALOPRAM OXALATE 20 MG TAB PO SCH (20:59)
[2021-09-09] MEDS: LEVOTHYROXINE SODIUM 50 MCG TABLET PO SCH (05:29)
[2021-09-09 06:47] LABS: Basophils # (auto) 0.02 K/uL (0-0.2); Basophils % (auto) 0.5 %; Eosinophils # (auto) 0.05 K/uL (0-0.50); Eosinophils % (auto) 1.2 %; Hematocrit (blood only) 32.6 % (34.1-44.9); Immature Granulocytes # (auto) 0.01 K/uL (0.00-0.02); Immature Granulocytes % (auto) 0.2 %; Lymphocytes # (auto) 1.55 K/uL (1.2-3.4); Lymphocytes % (auto) 36.3 %; Mean Corpuscular Hemoglobin 27.5 pg (25.0-34.0); Mean Corpuscular Hgb Conc 30.7 g/dL (32.0-36.0); Mean Corpuscular Volume 89.8 fL (80.0-100.0); Mean Platelet Volume 9.3 fL (9.4-12.3); Monocytes # (auto) 0.35 K/uL (0.24-0.82); Monocytes % (auto) 8.2 %; Neutrophils # (auto) 2.29 K/uL (1.4-6.5); Neutrophils % (auto) 53.6 %; Platelet Count 217 K/uL (130-400); RDW Coefficient of Variation 15.8 % (11.5-14.5); RDW Standard Deviation 51.1 fL (36.4-46.3); Red Blood Count 3.63 M/uL (3.93-5.22); White Blood Count 4.27 K/ul (4.8-10.8)
[2021-09-09 07:39] LABS: Albumin Globulin Ratio 1.2 (0.9-2); Albumin Level 3.3 gm/dl (3.4-5.0); BUN Creatinine Ratio 18.2 (10-20); Bilirubin,Total 0.4 mg/dl (0.2-1.0); Calcium 8.1 mg/dl (8.5-10.1); Creatinine Clr Calc Pharmacy 74.5 ml/min; Est GFR (African American) 66.9 ml/min; Est GFR (Non-African American) 57.7 ml/min; Globulin 2.7 gm/dl (2.5-4.0); Magnesium 1.9 mg/dl (1.7-2.4); Phosphorus 3.1 mg/dl (2.5-4.9)
[2021-09-09] MEDS: LOSARTAN POTASSIUM 50 MG TAB PO SCH (08:38)
[2021-09-09] MEDS: PANTOprazole 40 MG TAB PO SCH (08:38)
[2021-09-09] MEDS: APIXABAN 5 MG TABLET PO SCH ×2 (08:38→20:48)
[2021-09-09] MEDS: AMIODARONE 200 MG TAB PO SCH (08:38)
[2021-09-09] MEDS: FAMOTIDINE 20 MG TAB PO SCH ×2 (08:38→20:47)
[2021-09-09] MEDS: DOCUSATE SODIUM/SENNA 50/8.6MG TAB PO SCH (08:38)
[2021-09-09] MEDS: METOPROLOL SUCC 25MG EXT REL TAB PO SCH (08:39)
[2021-09-09] MEDS: ACETAMINOPHEN 325 MG TAB PO PRN ×2 (08:40→19:56)
--- NOTE | 2021-09-09 13:59 | Electrocardiogram Report ---
Test Reason : Blood Pressure : / mmHG Vent. Rate : 064 BPM Atrial Rate : 064 BPM P-R Int : 236 ms QRS Dur : 094 ms QT Int : 420 ms P-R-T Axes : -28 028 008 degrees QTc Int : 434 ms Atrial-paced rhythm with prolonged AV conduction Low voltage QRS Nonspecific ST and T wave abnormality Abnormal ECG When compared with ECG of 04-SEP-2021 20:13, Minimal criteria for Anterior infarct are no longer Present Confirmed by Daniel Grant ([id number]) on 09/09/2021 1:58:22 PM Referred By: REFERRED SELF Confirmed By:Daniel Grant
--- NOTE | 2021-09-09 16:30 | Hospitalist Progress Note ---
Date of Service September 09, 2021 Assessment & Plan (1) Dizziness: Plan: - patient feels dizzy and unsteady - ECG unremarkable without ischemic changes - s/p IVF without improvement - trial of meclizine unresponsive - CTH without contrast ordered - PT/OT - return home when ready (2) Abdominal pain: Plan: - somewhat mild, diffuse - likely related to constipation as patient has been having small hard stools recently - given good bowel regimen - will monitor for now - has outpatient follow up with GI (3) Melena: Plan: 1 episode of melena reported - has history of melena and possible gastritis - s/p EGD with GI without significant findings - recommend and scheduled for outpatient colonoscopy - started on apixaban 5mg BID today 09/06/2021 - hgb stable - will trend (4) Paroxysmal A-fib: Plan: She has a history of paroxysmal atrial fibrillation on chronic anticoagulation with warfarin. - Current INR is 3.6. - Continue to trend INR and give hemodynamic support - toprol XL was held initially - restart tomorrow AM - started on apixaban 5mg BID (5) Anemia: Plan: Chronic, baseline. Repeat H&H in setting of possible melena (6) Depression: Plan: Chronic, stable, continue Lexapro per home regimen. (7) Hypothyroidism: Plan: Chronic, TSH pending, continue home levothyroxine (8) HTN (hypertension): Plan: - BP stable, hgb stable - will restart losartan (9) H/O cardiac pacemaker: (10) DVT prophylaxis: Plan: SCDs, apixaban Full code Disposition- med/surg Fabio Patterson MD [facility] Medicine Admission and Anticipated Discharge Date Admission Date: September 04, 2021 Subjective 70 yo F on coumadin for afib presents with reports of black stool x 1 day. INR found to be supratherapeutic, given IV vitamin K in ED. Started on IV PPI. GI saw her and did EGD without any evidence of bleeding and otherwise unremarkable. hgb remained stable without any other episodes of melena. She remained stable. PT/OT evaluated and patient at baseline, ok to return home. Denied chest pain, shortness of breath, n/v/d, cough, dysuria. abdominal pain is improved. Review of Systems Review of Systems: All systems reviewed & are unremarkable except as noted in Subjective Physical Exam Eyes: PERRL, conjunctivae normal, anicteric sclerae Neurologic: patellar DTR's 2+ bilat, sensation intact and PERRL, EOMI, accommodation nl, no face palsy, no dysarthria CN's II-XI intact bilaterally, moves all extremities and awake Psychiatric: A+Ox3, euthymic affect Results & Data Results & Data ([facility]) Vital Signs (Past 12 Hours) Vital Signs Temp Pulse Pulse Resp BP Pulse Ox O2 Del Method 09/09/21 16:10 36.7 C 61 18 149/77 H 95 Room Air 09/09/21 14:58 60 09/09/21 08:04 60 09/09/21 07:36 36.6 C 66 16 111/64 92 Room Air (1) Anemia Anemia type: unspecified type Qualified Code(s): D64.9 - Anemia, unspecified
[2021-09-09] MEDS: ATORVASTATIN 40 MG TAB PO SCH (20:46)
[2021-09-09] MEDS: ESCITALOPRAM OXALATE 20 MG TAB PO SCH (20:47)
[2021-09-10] MEDS: LEVOTHYROXINE SODIUM 50 MCG TABLET PO SCH (06:30)
[2021-09-10] MEDS: DOCUSATE SODIUM/SENNA 50/8.6MG TAB PO SCH (08:16)
[2021-09-10] MEDS: APIXABAN 5 MG TABLET PO SCH (08:16)
[2021-09-10] MEDS: METOPROLOL SUCC 25MG EXT REL TAB PO SCH (08:16)
[2021-09-10] MEDS: AMIODARONE 200 MG TAB PO SCH (08:16)
[2021-09-10] MEDS: PANTOprazole 40 MG TAB PO SCH (08:16)
[2021-09-10] MEDS: FAMOTIDINE 20 MG TAB PO SCH (08:16)
[2021-09-10] MEDS: LOSARTAN POTASSIUM 50 MG TAB PO SCH (08:16)
--- NOTE | 2021-09-10 13:46 | Discharge Summary ---
Date of Service September 10, 2021 Admission HPI Per Admitting Provider 70 yo F on coumadin for afib presents with reports of black stool x 1 day. She is not on iron and doesn't take pepto bismol. There was no stool in the rectal vault to confirm FOBT on rectal per ER physician. INR is 3.6 and she was initially hemodynamically stable. H/H is 11.8/36.8 which is her baseline. Reports abdominal pain x 3 weeks. Associated with nausea, and is not triggered by anything. It goes away with jasmyn flako. Some Tylenol for pain Severe pain tonight-improved with the morphine to a 6/10. Generally hasn't been feeling well for 3 weeks Not eating much over the past few days Feels very tired. Takes coumadin and ASA 81mg and took only the aspirin today. No fevers or SOB. First episode of black stool was today-two times went and last time was black Normal stool yesterday No lightheadedness No chest pain Admission Exam Per Admitting Provider CONSTITUTIONAL: obese, vitals as above, NAD EYES: normal conjunctivae, no scleral icterus ENT: external ear and nose normal, MMM NECK: trachea midline, RESPIRATORY: clear to auscultation bilaterally, no crackles, rales or wheezes, normal respiratory effort CARDIOVASCULAR: regular rate and rhythm, S1 and 2 heard without murmurs, gallops or rubs, no JVD, no peripheral edema CHEST: inspection of chest was normal GASTROINTESTINAL: soft, nontender, ND, no guarding MUSCULOSKELETAL: strength 5/5 throughout, head is normocephalic and atraumatic, SKIN: warm and dry, NEUROLOGIC: CN 2-12 grossly intact, no sensory deficit, normal cognition, normal speech, no tremor PSYCHIATRIC: alert cooperative and oriented to person, place and time. Principal Diagnosis Dizziness Discharge Exam Constitutional WD/WN, vitals as above Eyes PERRL, conjunctivae normal, anicteric sclerae Neurologic patellar DTR's 2+ bilat, sensation intact and PERRL, EOMI, accommodation nl, no face palsy, no dysarthria CN's II-XI intact bilaterally, moves all extremities and awake Psychiatric A+Ox3, euthymic affect Discharge Data Allergies Allergy/AdvReac Type Severity Reaction Status Date / Time celecoxib Allergy Intermediate Hives Verified 07/20/22 21:26 latex Allergy Intermediate RASH Verified 09/04/21 21:26 lisinopril Allergy Intermediate Cough Verified 09/04/21 21:26 Consultations 09/04/21 21:26 ED Decision to Admit Stat 09/04/21 23:34 Consult Gastroenterology Routine Procedures Performed Operation Date: 09/05/21 17:00 Actual Procedures p Esophagogastroduodenoscopy - Jong Myers DO Ordered Studies 09/08/21 12:[address] [CT head/brain wo con] Routine Hospital Course (1) Dizziness: 70 yo F on coumadin for afib presents with reports of black stool x 1 day. INR found to be supratherapeutic, given IV vitamin K in ED. Started on IV PPI. GI saw her and did EGD without any evidence of bleeding and otherwise unremarkable. hgb remained stable without any other episodes of melena. She remained stable. PT/OT evaluated and patient at baseline, ok to return home - patient feels dizzy and unsteady - ECG unremarkable without ischemic changes - s/p IVF without improvement - trial of meclizine unresponsive - CTH without contrast ordered - PT/OT - return home when ready (2) Abdominal pain: - somewhat mild, diffuse - likely related to constipation as patient has been having small hard stools recently - given good bowel regimen - will monitor for now - has outpatient follow up with GI (3) Melena: 1 episode of melena reported - has history of melena and possible gastritis - s/p EGD with GI without significant findings - recommend and scheduled for outpatient colonoscopy - started on apixaban 5mg BID today 09/06/2021 - hgb stable - will trend (4) Paroxysmal A-fib: She has a history of paroxysmal atrial fibrillation on chronic anticoagulation with warfarin. - Current INR is 3.6. - Continue to trend INR and give hemodynamic support - toprol XL was held initially - restart tomorrow AM - started on apixaban 5mg BID (5) Anemia: Chronic, baseline. Repeat H&H in setting of possible melena (6) Depression: Chronic, stable, continue Lexapro per home regimen. (7) Hypothyroidism: Chronic, TSH pending, continue home levothyroxine (8) HTN (hypertension): - BP stable, hgb stable - will restart losartan (9) H/O cardiac pacemaker: (10) DVT prophylaxis: SCDs, apixaban Full code Disposition- med/surg Fabio Patterson MD [facility] Medicine Total Time Total Time Spent Total Time Spent (In Minutes): 20 minutes Total Time Includes: Examination of the Patient, Discharge Planning and Medication Reconciliation Discharge Plan Discharge Items Patient Disposition: Home - Self-Care Reason For Visit: MELENA REPORTED Discharge Diagnosis: abdominal pain Activity: Resume your previous activity Non-emergency contact: Primary Care Provider and [employer] Technician Call non-emergency contact if: you have any medication questions and your symptoms worsen Follow-up/Referrals: Jong Myers DO [Physician] - Irish Richard DO [Primary Care Provider] - (Date & Time 09/13/2021 3:00 PM Provider Drew Sandoval MD Department [facility] ) Chloe Frias DO [Physician] - (Date & Time 09/13/2021 11:30 AM Provider Chloe Frias DO Department Cardiology, [facility] ) Diet: Heart Healthy Addtl Attending Provider Instructions: You were admitted due to an episode of melena (dark stools). You were seen by the gastroenterologists and they did and EGD to look at your stomach for any bleeding. These results were normal and there was no evidence of bleeding. You had some dizziness that was worked up with a cat scan of you head and ECG to check your heart, both were normal. You worked with PT/OT and they determined that you were ok to go home with assistance from your son in the evenings. You were switched from warfarin (coumadin) to Eliquis to be taken 5mg 2x/day. Pending Studies at Discharge: No Stand-Alone Forms: My [facility], Smoking Cessation Medications and DC Order Prescriptions: New Eliquis 5 mg Tablet 5 mg PO BID Qty: 60 0RF sennosides-docusate sodium [Senokot-S] 8.6-50 mg Tablet 1 tab PO QAM PRN (Reason: constipation) Qty: 30 0RF Continued aspirin [Vonda Low Dose Aspirin] 81 mg Tablet,Delayed Release (Dr/Ec) 81 mg PO QAM acetaminophen 325 mg Tablet 2 tab PO Q6H PRN (Reason: Pain) cholecalciferol (vitamin D3) 1,000 unit Capsule 1,000 units PO QAM cyanocobalamin (vitamin B-12) 1,000 mcg Tablet, Sublingual 1,000 mcg SUBLINGUAL QAM losartan 100 mg Tablet 100 mg PO QAM amlodipine 2.5 mg Tablet 2.5 mg PO QAM atorvastatin [Lipitor] 40 mg Tablet 40 mg PO HS amiodarone 200 mg tablet 200 mg PO QAM metoprolol succinate 25 mg tablet extended release 24 hr 25 mg PO QAM escitalopram oxalate 20 mg tablet 20 mg PO QPM famotidine 20 mg tablet 20 mg PO BID levothyroxine 50 mcg tablet 50 mcg PO DAILYBB fluticasone propionate 50 mcg/actuation [place],Suspension 2 spray INTRANASAL DAILY PRN (Reason: Congestion) furosemide [Lasix] 20 mg tablet 20 mg PO DAILY PRN (Reason: edema) Qty: 10 0RF Changed omeprazole 20 mg capsule,delayed release(DR/EC) 40 mg PO AMHS Qty: 30 0RF Discontinued warfarin 5 mg Tablet See Rx Instructions .ROUTE .COMPLEX Rx Instructions: 5 mg orally ;TAKE 5MG EVERY THURSDAY & THURSDAY, THEN 2.5 MG ALL OTHER DAYS. Discharge Orders: Discharge Order (Routine); Ordered 09/10/21 Ordered By: Fabio Patterson Admission Data Admit Date/Time: 09/04/21 21:58 Attending Provider: Fabio Patterson Admit Provider: Belkis Rodriguez Primary Care Provider: Irish Richard Other Providers: Belkis Rodriguez ; Jong Myers Other Interventions: Discharge Summary Assessment (RN) Last Done: 09/10/21 11:55
== END 2021-09-10 13:32 | disposition home or self-care (01) | DRG 378 ==
LOC: ED 18:30 → SUATTDRO 21:58 → EDINP 21:58 → 2N 09-05 14:11

== ENCOUNTER 2021-10-27 14:22 | Inpatient (IN) ==
[2021-10-27] MEDS ORDERED: NITROGLYCERIN 2% OINTMENT 30GM TUBE EXT STA (14:55)
[2021-10-27 14:57] LABS: Basophils # (auto) 0.01 K/uL (0-0.2); Basophils % (auto) 0.2 %; Eosinophils # (auto) 0.03 K/uL (0-0.50); Eosinophils % (auto) 0.6 %; Hematocrit (blood only) 35.6 % (34.1-44.9); Hemoglobin 11.3 g/dl (12.0-16.0); Immature Granulocytes # (auto) 0.02 K/uL (0.00-0.02); Immature Granulocytes % (auto) 0.4 %; Lymphocytes # (auto) 1.55 K/uL (1.2-3.4); Mean Corpuscular Hemoglobin 28.3 pg (25.0-34.0); Mean Corpuscular Hgb Conc 31.7 g/dL (32.0-36.0); Mean Corpuscular Volume 89.2 fL (80.0-100.0); Mean Platelet Volume 8.9 fL (9.4-12.3); Monocytes # (auto) 0.29 K/uL (0.24-0.82); Monocytes % (auto) 6.2 %; Neutrophils # (auto) 2.79 K/uL (1.4-6.5); Neutrophils % (auto) 59.6 %; Platelet Count 199 K/uL (130-400); RDW Coefficient of Variation 17.2 % (11.5-14.5); Red Blood Count 3.99 M/uL (3.93-5.22); White Blood Count 4.69 K/ul (4.8-10.8)
[2021-10-27] MEDS ORDERED: ONDANSETRON INJ 2 MG/ML 2 ML VIAL IV STA (15:03)
[2021-10-27] MEDS ORDERED: ACETAMINOPHEN 500 MG TAB PO STA (15:03)
[2021-10-27 15:09] LABS: Partial Thromboplastin Time 26.7 Seconds (21.0-31.0); Prothrombin Time 10.7 Seconds (9.0-12.0)
--- NOTE | 2021-10-27 15:09 | Emergency Department Note ---
Impression & Plan Precordial chest pain, Anemia, Hypokalemia ED Provider Note NAME: JAN ADAM AGE: 71 SEX: F : 1950 ARRIVES VIA: Ambulance INFORMANT: [Patient] ED PROVIDER(S): [Raúl Mcdaniel MD] CHIEF COMPLAINT: Chest pain HISTORY OF PRESENT ILLNESS: The patient is a 71-year-old female presents to the ER with 3 days of chest and back discomfort. She has pain between her shoulder blades and in the anterior chest. The pain is a 9/10. The patient feels the pain worsens with exertion, is better with rest. At times, the pain has been a 9/10. She is felt weak and has noticed a bit of shortness of breath with exertion although, this is not necessarily new. There has been no cough, no trauma. No fever. The patient has a history of a pacemaker placement. She has history of A. fib and is on Eliquis. She denies any history of previous MD. In route, the patient was given oral aspirin and nitroglycerin by EMS, she feels the pain improved after the nitroglycerin. She does not have her own nitroglycerin to use at home. REVIEW OF SYSTEMS: See HPI for pertinent positives and negatives. A total of ten systems were reviewed and were otherwise negative. PMHx/PSHx: See Below SOCIAL HISTORY: See Below. PHYSICAL EXAM: GENERAL: Patient is in no acute distress. HEENT: No acute trauma, normocephalic atraumatic, mucous membranes moist, no nasal congestion, no scleral icterus. NECK: No stridor, no adenopathy, no meningismus, trachea is midline. LUNGS: Clear to auscultation bilaterally, no wheeze, no rhonchi, breath sounds equal. Chest: Tender across the anterior chest wall. HEART: Without murmurs gallops or rubs, regular rate and rhythm. ABDOMEN: Soft, nontender, bowel sounds positive, no peritonitis. EXTREMITIES: No cyanosis, mild bilateral pedal edema, full range of motion of all the joints without pain or difficulty, no signs for acute trauma. NEUROLOGIC: Oriented x 3, no acute motor or sensory deficits, no focal weakness. SKIN: No rash, no jaundice, no diaphoresis. DIFFERENTIAL DIAGNOSIS: Cardiac ischemia, aortic dissection, pulmonary embolism, pneumothorax, pneumonia, pericarditis, myocarditis, esophageal rupture, GERD, cholecystitis, pancreatitis, musculoskeletal, as well as other pathologies. EMERGENCY DEPARTMENT COURSE/PROCEDURES: ECG: Indication was chest pain. The ECG shows an atrial pacemaker with a prolonged AV conduction. The rate is 84. There is diffuse nonspecific ST change and T wave flattening. No ST elevation. The QTc is 412. Compared to an ECG from 08 September 2021, I see no significant change. Continuous Cardiac Monitoring: An order was placed for continuous cardiac monitoring. The monitor shows a rate of 60 with an atrial pacemaker. MEDICAL DECISION MAKING: There is no leukocytosis. The patient does have a mild anemia but she has a history of the same. There was a normal platelet count. No coagulopathy. Potassium was slightly low at 3.4. No renal failure. Alk phos slightly elevated, the remaining liver enzymes were unremarkable. No evidence for pancreatitis. ECG showed an atrial pacemaker without any change compared to previous ECGs. Cardiac enzyme testing x1 is not consistent with acute cardiac injury. COVID test returned negative. Chest x-ray shows some parenchymal congestion secondary, I believe, to her body habitus. There was no pneumonia or pneumothorax. No mediastinal widening. Patient presents with precordial chest pain and mid upper back plain. The pain was worse with exertion and did improve with nitroglycerin. On exam, the anterior chest wall did seem tender to palpation. Patient was given 2 inches of nitroglycerin paste. She received IV Zofran, oral potassium, oral Tylenol. The patient does feel better with the above medications administered. Given her complaints, given the response to nitroglycerin, I do think further cardiac work-up would be warranted. I did speak with the patient and case management. The on-call hospitalist was consulted. Past Med/Surg History Medical History Abdominal pain Atrial fibrillation Paroxysmal atrial fibrillation, on rhythm control strategy with dofetilide, Coumadin (entered by Dr Borges 10/22/17) CAD (coronary artery disease) Hx cardiac cath 2014: coronary arteries have diffuse minor irregularities Chest pain Depression GERD (gastroesophageal reflux disease) GI bleed H/O cholecystitis H/O cholecystitis HLD (hyperlipidemia) HTN (hypertension) Hx pulmonary embolism 2014 Melanotic stools Melena NSTEMI (non-ST elevated myocardial infarction) Obesity JALEN (obstructive sleep apnea) JALEN (obstructive sleep apnea) Paroxysmal atrial fibrillation Stress-induced cardiomyopathy Takotsubo cardiomyopathy Surgical History H/O carpal tunnel repair H/O carpal tunnel repair H/O wisdom tooth extraction H/O: hysterectomy H/O: hysterectomy Hx of cardiac catheterization Hx of cardiac catheterization Angiographically normal coronary arteries, 10/22/17, [facility]. History, echocar diogram, cardiac catheterization data consistent with atypical presentation of stress-induced cardiomyopathy with normal apical wall motion, and hypokinesis to akinesis of the basal left ventricular myocardial segments Family History Father , in 60's of myocardial infarction Myocardial infarction, Onset Age: 62 Brother Myocardial infarction, Onset Age: 68 Other Diabetes Hypertension Social History Smoking Status: Never smoker Second Hand Exposure: No; Hx Alcohol Use: No Hx Substance Use: No Preferred Language: Colombian Communication Ability: Effective Visual Impairment: Limited Hearing Ability: Normal [employer] Driver Required: Yes Beliefs That Will Affect Care: None marital status: Single Current Living Situation: Alone Current Living Situation Comment: appartment Feels Safe at Home: Yes Assistive Devices: Cane and Walker Allergies Allergies Allergy/AdvReac Type Severity Reaction Status Date / Time celecoxib Allergy Intermediate Hives Verified 09/04/21 21:26 latex Allergy Intermediate RASH Verified 09/04/21 21:26 lisinopril Allergy Intermediate Cough Verified 09/04/21 21:26 Home Meds Home Medications Medication Instructions Recorded Confirmed acetaminophen 325 mg tablet 2 tab PO Q6H PRN Pain 10/22/17 10/27/21 aspirin 81 mg tablet,delayed 81 mg PO QAM 10/22/17 10/27/21 release (Vonda Low Dose Aspirin) cholecalciferol (vitamin D3) 25 1,000 units PO QAM 10/22/17 10/27/21 mcg (1,000 unit) capsule cyanocobalamin (vitamin B-12) 1,000 mcg sublingual QAM 10/22/17 10/27/21 1,000 mcg sublingual tablet losartan 100 mg tablet 100 mg PO QAM 10/22/17 10/27/21 amlodipine 2.5 mg tablet 2.5 mg PO QAM 07/02/18 10/27/21 amiodarone 200 mg tablet 200 mg PO QAM 12/02/19 10/27/21 atorvastatin 40 mg tablet (Lipitor) 40 mg PO HS 12/02/19 10/27/21 metoprolol succinate 25 mg 25 mg PO QAM 12/02/19 10/27/21 tablet,extended release 24 hr escitalopram oxalate 20 mg tablet 20 mg PO QPM 07/12/20 10/27/21 famotidine 20 mg tablet 20 mg PO BID 07/12/20 10/27/21 fluticasone propionate 50 2 spray intranasal DAILY PRN 05/19/21 10/27/21 mcg/actuation nasal Congestion spray,suspension levothyroxine 50 mcg tablet 50 mcg PO DAILYBB 05/19/21 10/27/21 Previous Rx's Medication Instructions Recorded furosemide 20 mg tablet (Lasix) 20 mg PO DAILY PRN edema #10 tabs 05/24/21 apixaban 5 mg tablet (Eliquis) 5 mg PO BID #60 tabs 09/10/21 omeprazole 20 mg capsule,delayed 40 mg PO AMHS #30 caps 09/10/21 release sennosides 8.6 mg-docusate sodium 1 tab PO QAM PRN constipation #30 09/10/21 50 mg tablet (Senokot-S) tabs Results & Data (ED) Vital Signs Vital Signs - 24 hr 10/27/21 14:32 10/27/21 14:51 10/27/21 14:51 Temperature 36.4 C L 36.4 C L Temperature Source Oral Oral Pulse Rate 75 Pulse Rate [Finger] 60 Respiratory Rate 24 24 Blood Pressure 151/65 H Blood Pressure [Right Arm] 151/65 H Blood Pressure Mean 93 Blood Pressure Mean [Right Arm] 93 Pulse Oximetry 96 95 Oxygen Delivery Method Room Air Room Air Sepsis Recent Fever Within 48 Hours No Sepsis New/Unexplained Change in Mental Status No Sepsis Action Taken by Nursing No Action Required Home Medications Current Medication List: was personally reviewed by me Laboratory Data Attestation: I reviewed the patient's lab results. Result diagrams: 10/27/21 14:43 10/27/21 14:43 Lab Results 10/27/21 10/27/21 10/27/21 Range/Units 14:43 14:43 14:43 WBC 4.69 L (4.8-10.8) K/ul RBC 3.99 (3.93-5.22) M/uL Hgb 11.3 L (12.0-16.0) g/dl Hct 35.6 (34.1-44.9) % MCV 89.2 (80.0-100.0) fL MCH 28.3 (25.0-34.0) pg MCHC 31.7 L (32.0-36.0) g/dL RDW Std Deviation 56.0 H (36.4-46.3) fL RDW Coeff of Artemio 17.2 H (11.5-14.5) % Plt Count 199 (130-400) K/uL MPV 8.9 L (9.4-12.3) fL Immature Gran % (Auto) 0.4 % Neut % (Auto) 59.6 % Lymph % (Auto) 33.0 % Coles % (Auto) 6.2 % Eos % (Auto) 0.6 % Baso % (Auto) 0.2 % Neut # (Auto) 2.79 (1.4-6.5) K/uL Lymph # (Auto) 1.55 (1.2-3.4) K/uL Coles # (Auto) 0.29 (0.24-0.82) K/uL Eos # (Auto) 0.03 (0-0.50) K/uL Baso # (Auto) 0.01 (0-0.2) K/uL Immature Gran # (Auto) 0.02 (0.00-0.02) K/uL PT 10.7 (9.0-12.0) Seconds INR 1.0 (0.9-1.1) APTT 26.7 (21.0-31.0) Seconds PTT Ratio 1.0 Sodium 141 (136-145) mmol/L Potassium 3.4 L (3.5-5.1) mmol/L Chloride 107 (98-107) mmol/L Carbon Dioxide 24 (21-32) mmol/L Anion Gap 10 (3-11) BUN 12 (6-23) mg/dl Creatinine 0.80 (0.6-1.2) mg/dl Est Cr Clr Drug Dosing 90.7 ml/min Est GFR ( Amer) 86.0 ml/min Est GFR (Non-Af Amer) 74.2 ml/min BUN/Creatinine Ratio 15.0 (10-20) Glucose 101 H (70-99(Fasting)) mg/dl Calcium 8.4 L (8.5-10.1) mg/dl Magnesium (1.7-2.4) mg/dl Total Bilirubin 0.5 (0.2-1.0) mg/dl AST 16 (13-39) U/L ALT 13 (7-52) U/L Alkaline Phosphatase 111 H (34-104) U/L Troponin I High Sens 5.8 (0-14) pg/ml Total Protein 6.8 (6.0-8.3) gm/dl Albumin 3.8 (3.4-5.0) gm/dl Globulin 3.0 (2.5-4.0) gm/dl Albumin/Globulin Ratio 1.3 (0.9-2) Lipase (11-82) U/L SARS-CoV-2, RNA, NAAT (NEGATIVE) 10/27/21 10/27/21 Range/Units 14:43 15:15 WBC (4.8-10.8) K/ul RBC (3.93-5.22) M/uL Hgb (12.0-16.0) g/dl Hct (34.1-44.9) % MCV (80.0-100.0) fL MCH (25.0-34.0) pg MCHC (32.0-36.0) g/dL RDW Std Deviation (36.4-46.3) fL RDW Coeff of Artemio (11.5-14.5) % Plt Count (130-400) K/uL MPV (9.4-12.3) fL Immature Gran % (Auto) % Neut % (Auto) % Lymph % (Auto) % Coles % (Auto) % Eos % (Auto) % Baso % (Auto) % Neut # (Auto) (1.4-6.5) K/uL Lymph # (Auto) (1.2-3.4) K/uL Coles # (Auto) (0.24-0.82) K/uL Eos # (Auto) (0-0.50) K/uL Baso # (Auto) (0-0.2) K/uL Immature Gran # (Auto) (0.00-0.02) K/uL PT (9.0-12.0) Seconds INR (0.9-1.1) APTT (21.0-31.0) Seconds PTT Ratio Sodium (136-145) mmol/L Potassium (3.5-5.1) mmol/L Chloride (98-107) mmol/L Carbon Dioxide (21-32) mmol/L Anion Gap (3-11) BUN (6-23) mg/dl Creatinine (0.6-1.2) mg/dl Est Cr Clr Drug Dosing ml/min Est GFR ( Amer) ml/min Est GFR (Non-Af Amer) ml/min BUN/Creatinine Ratio (10-20) Glucose (70-99(Fasting)) mg/dl Calcium (8.5-10.1) mg/dl Magnesium 1.9 (1.7-2.4) mg/dl Total Bilirubin (0.2-1.0) mg/dl AST (13-39) U/L ALT (7-52) U/L Alkaline Phosphatase (34-104) U/L Troponin I High Sens (0-14) pg/ml Total Protein (6.0-8.3) gm/dl Albumin (3.4-5.0) gm/dl Globulin (2.5-4.0) gm/dl Albumin/Globulin Ratio (0.9-2) Lipase 12 (11-82) U/L SARS-CoV-2, RNA, NAAT NEGATIVE (NEGATIVE) Administered Medications Discontinued Medications Acetaminophen (Acetaminophen 500 Mg Tab) 1,000 mg PO NOW STA Stop: 10/27/21 15:04 Last Admin: 10/27/21 15:14 Dose: 1,000 mg Documented By: DIONNE Nitroglycerin (Nitroglycerin 2% Ointment 30gm Tube) 2 inch EXT NOW STA Stop: 10/27/21 14:56 Last Admin: 10/27/21 15:14 Dose: 2 inch Documented By: DIONNE Ondansetron HCl (Ondansetron Inj 2 Mg/Ml 2 Ml Vial) 4 mg IV NOW STA Stop: 10/27/21 15:04 Last Admin: 10/27/21 15:14 Dose: 4 mg Documented By: DIONNE Imaging Data Radiologist's Impression: Chest X-Ray 10/27/21 14:28 XR chest 1V portable HISTORY: 71 years-old Female cp acute atypical chest pain COMPARISON: Chest radiograph 09/04/2021 TECHNIQUE: Portable AP view of the chest FINDINGS: Cardiac silhouette is enlarged. Left subclavian pacer. Pulmonary vascular congestion without overt pulmonary edema. No pneumothorax or large pleural effusion. No airspace consolidation. Bones appear grossly intact. IMPRESSION: Cardiomegaly with pulmonary vascular congestion. ACT 112: Negative or not required by law. The above report was generated using voice recognition software. It may contain grammatical, syntax or spelling errors. Electronically signed by: Tarun Ramirez M.D. 10/27/2021 3:24 PM Discharge Plan Visit Data Chief Complaint: Chest Pain Stated Complaint: chest pain ED Provider: Raúl Mcdaniel Discharge Problem: Precordial chest pain, Anemia, Hypokalemia Patient Disposition: Admitted As Inpatient Condition: Good Forms Stand Alone Forms: [facility] Prescriptions Prescriptions: No Action aspirin [Vonda Low Dose Aspirin] 81 mg Tablet,Delayed Release (Dr/Ec) 81 mg PO QAM acetaminophen 325 mg Tablet 2 tab PO Q6H PRN (Reason: Pain) cholecalciferol (vitamin D3) 1,000 unit Capsule 1,000 units PO QAM cyanocobalamin (vitamin B-12) 1,000 mcg Tablet, Sublingual 1,000 mcg SUBLINGUAL QAM losartan 100 mg Tablet 100 mg PO QAM amlodipine 2.5 mg Tablet 2.5 mg PO QAM atorvastatin [Lipitor] 40 mg Tablet 40 mg PO HS amiodarone 200 mg tablet 200 mg PO QAM metoprolol succinate 25 mg tablet extended release 24 hr 25 mg PO QAM escitalopram oxalate 20 mg tablet 20 mg PO QPM famotidine 20 mg tablet 20 mg PO BID Eliquis 5 mg Tablet 5 mg PO BID Qty: 60 0RF sennosides-docusate sodium [Senokot-S] 8.6-50 mg Tablet 1 tab PO QAM PRN (Reason: constipation) Qty: 30 0RF omeprazole 20 mg capsule,delayed release(DR/EC) 40 mg PO AMHS Qty: 30 0RF levothyroxine 50 mcg tablet 50 mcg PO DAILYBB fluticasone propionate 50 mcg/actuation Marshall,Suspension 2 spray INTRANASAL DAILY PRN (Reason: Congestion) furosemide [Lasix] 20 mg tablet 20 mg PO DAILY PRN (Reason: edema) Qty: 10 0RF Referrals Referrals: Irish Richard DO [Primary Care Provider] -
--- NOTE | 2021-10-27 15:25 | XRay Report ---
XR chest 1V portable HISTORY: 71 years-old Female cp acute atypical chest pain COMPARISON: Chest radiograph 09/04/2021 TECHNIQUE: Portable AP view of the chest FINDINGS: Cardiac silhouette is enlarged. Left subclavian pacer. Pulmonary vascular congestion without overt pu lmonary edema. No pneumothorax or large pleural effusion. No airspace consolidation. Bones appear killian ssly intact. IMPRESSION: Cardiomegaly with pulmonary vascular congestion. ACT 112: Negative or not required by law. The above report was generated using voice recognition software. It may contain grammatical, syntax o r spelling errors. Electronically signed by: Tarun Ramirez M.D. 10/27/2021 3:24 PM
[2021-10-27 15:26] LABS: Troponin I High Sensitivity 5.8 pg/ml (0-14)
[2021-10-27 15:29] LABS: Albumin Globulin Ratio 1.3 (0.9-2); Albumin Level 3.8 gm/dl (3.4-5.0); Bilirubin,Total 0.5 mg/dl (0.2-1.0); Calcium 8.4 mg/dl (8.5-10.1); Creatinine Clr Calc Pharmacy 90.7 ml/min; Est GFR (Non-African American) 74.2 ml/min; Potassium 3.4 mmol/L (3.5-5.1); Total Protein 6.8 gm/dl (6.0-8.3)
[2021-10-27] MEDS ORDERED: POTASSIUM CHLORIDE CRTAB 20 MEQ TABCR PO STA ×2 (15:32→16:13)
[2021-10-27 15:42] LABS: Magnesium 1.9 mg/dl (1.7-2.4)
--- NOTE | 2021-10-27 15:57 | History & Physical Report ---
Date of Service October 27, 2021 Assessment & Plan (1) Chest pain: (2) H/O cardiac pacemaker: (3) Atrial fibrillation, controlled: (4) HTN (hypertension): (5) Hypothyroidism: (6) Depression: (7) Paroxysmal A-fib: (8) Anemia: (9) JALEN (obstructive sleep apnea): Plan Ms. Banerjee is a 71 year old who presented to the [facility] after having three days worth of chest pain and discomfort in her anterior chest and shoulder blades. Chest x-ray suggestive of pulmonary vascular congestion, patient is supposed to take Lasix PRN but reports not taking any of them, will give a small dose of IV Lasix now. Trend Trops, BNP, ECHO. Cards Consult. Chest pain: Three days chest pain and discomfort in her anterior chest and shoulder blades. Thursday night the pain started between her shoulder blades and then Thursday her actual chest pain started. She reports the pain to be 9/10 Takes baby aspirin Pt sees Dr. Frias OP; cardiology consult placed ECHO; 06/07 ECHO w/ EF 60-65%, normal LV size and function. EKG in AM BNP ordered One dose of Lasix now; reevaluate tmw. Cardiology consult; possible acute on chronic CHF H/O pacemaker: atrial pacemaker due to bradycardia in 2019. Atrial fibrillation; controlled: was on Warfarin and switched to Eloquis in 08/07 Takes Amiodarone and ASA HTN: controlled in ED. Continue Amplodipine, losartan, and Metoprolol JALEN: Wears CPAP at night Dyslipidemia: Continue Lipitor lipid panel in AM Hypothyroidism: Stable; Continue Levothyroxine Depression: stable; takes Lexapro Anemia: chronic; baseline. Hgb 11.3 Disposition: Code: Full PCP: Dr. Richard VTE Prophylaxis: Plan to return home at [place] History of Present Illness Chief Complaint: chest pain Primary Care Provider: Irish Richard, Ms. Banerjee is a 71 year old who presented to the [facility] after having three days worth of chest pain and discomfort in her anterior chest and shoulder blades. Thursday night the pain started between her shoulder blades and then Thursday her actual chest pain started. She reports the pain to be 9/10. Additionally she reports generally feeling week. She had a recent admission in August 2021 for melena. Additional PMH includes: paroxysmal atrial fibrillation, anemia, depression, hypothyroidism, h/o cardiac pacemaker. Currently, she is sitting upright in her hospital bed and states she reports her pain to be a 6/10. She states that exertion worsens her discomfort and has developed SOB. She reports also feeling lightheaded. Pt denies sore throat, cough, Allergies Allergy/AdvReac Type Severity Reaction Status Date / Time celecoxib Allergy Intermediate Hives Verified 10/27/21 16:54 latex Allergy Intermediate RASH Verified 10/27/21 16:54 lisinopril Allergy Intermediate Cough Verified 10/27/21 16:54 Home Medications Medication Instructions Recorded Confirmed Type acetaminophen 325 mg tablet 2 tab PO Q6H PRN Pain 10/22/17 10/27/21 History aspirin 81 mg tablet,delayed 81 mg PO QAM 10/22/17 10/27/21 History release (Vonda Low Dose Aspirin) cholecalciferol (vitamin D3) 25 1,000 units PO QAM 10/22/17 10/27/21 History mcg (1,000 unit) capsule cyanocobalamin (vitamin B-12) 1,000 mcg sublingual QAM 10/22/17 10/27/21 History 1,000 mcg sublingual tablet losartan 100 mg tablet 100 mg PO QAM 10/22/17 10/27/21 History amlodipine 2.5 mg tablet 2.5 mg PO QAM 07/02/18 10/27/21 History amiodarone 200 mg tablet 200 mg PO QAM 12/02/19 10/27/21 History atorvastatin 40 mg tablet (Lipitor) 40 mg PO HS 12/02/19 10/27/21 History metoprolol succinate 25 mg 25 mg PO QAM 12/02/19 10/27/21 History tablet,extended release 24 hr escitalopram oxalate 20 mg tablet 20 mg PO QPM 07/12/20 10/27/21 History famotidine 20 mg tablet 20 mg PO BID 07/12/20 10/27/21 History fluticasone propionate 50 2 spray intranasal DAILY PRN 05/19/21 10/27/21 History mcg/actuation nasal Congestion spray,suspension levothyroxine 50 mcg tablet 50 mcg PO DAILYBB 05/19/21 10/27/21 History furosemide 20 mg tablet (Lasix) 20 mg PO DAILY PRN edema #10 tabs 05/24/21 10/27/21 Rx apixaban 5 mg tablet (Eliquis) 5 mg PO BID #60 tabs 09/10/21 10/27/21 Rx omeprazole 20 mg capsule,delayed 40 mg PO AMHS #30 caps 09/10/21 10/27/21 Rx release sennosides 8.6 mg-docusate sodium 1 tab PO QAM PRN constipation #30 09/10/21 10/27/21 Rx 50 mg tablet (Senokot-S) tabs Past Med/Surg History Medical History Abdominal pain Atrial fibrillation Paroxysmal atrial fibrillation, on rhythm control strategy with dofetilide, Coumadin (entered by Dr Borges 10/22/17) CAD (coronary artery disease) Hx cardiac cath 2014: coronary arteries have diffuse minor irregularities Chest pain Depression GERD (gastroesophageal reflux disease) GI bleed H/O cholecystitis H/O cholecystitis HLD (hyperlipidemia) HTN (hypertension) Hx pulmonary embolism 2014 Melanotic stools Melena NSTEMI (non-ST elevated myocardial infarction) Obesity JALEN (obstructive sleep apnea) JALEN (obstructive sleep apnea) Paroxysmal atrial fibrillation Stress-induced cardiomyopathy Takotsubo cardiomyopathy Surgical History H/O carpal tunnel repair H/O carpal tunnel repair H/O wisdom tooth extraction H/O: hysterectomy H/O: hysterectomy Hx of cardiac catheterization Hx of cardiac catheterization Angiographically normal coronary arteries, 10/22/17, [facility]. History, echocardiogram, cardiac catheterization data consistent with atypical presentation of stress-induced cardiomyopathy with normal apical wall motion, and hypokinesis to akinesis of the basal left ventricular myocardial segments Family History Father , in 60's of myocardial infarction Myocardial infarction, Onset Age: 62 Brother Myocardial infarction, Onset Age: 68 Other Diabetes Hypertension Social History Smoking Status: Never smoker Second Hand Exposure: No; Hx Alcohol Use: No Hx Substance Use: No Preferred Language: Thai Communication Ability: Effective Visual Impairment: Limited Hearing Ability: Normal Cooky Packer Required: Yes Beliefs That Will Affect Care: None marital status: Single Current Living Situation: Alone Current Living Situation Comment: appartment Feels Safe at Home: Yes Assistive Devices: Cane and Walker Review of Systems Review of Systems: Neuro: (-) Falls, trauma, slurred speech HEENT: (-) RODRIGUEZ, dizziness, dysphagia, visual or auditory changes CV: (-) CP, palpitations, swelling Resp: (-) SOB GI: (-) appetite changes, N/V/D, bowel changes : (-) urinary changes Skin: (-) rashes Psych: (-) anxiety, depression Physical Exam Physical Exam: See Dr. Arrington addendum for PE Results & Data Results & Data ([facility]) Vital Signs (Past 12 Hours) Vital Signs Temp Pulse Pulse Resp BP BP Pulse Ox 10/27/21 14:51 36.4 C L 60 24 151/65 H 95 10/27/21 14:51 10/27/21 14:32 36.4 C L 75 24 151/65 H 96 O2 Del Method 10/27/21 14:51 10/27/21 14:51 Room Air 10/27/21 14:32 Room Air Laboratory Results Short CBC 10/27/21 Range/Units 14:43 WBC 4.69 L (4.8-10.8) K/ul Hgb 11.3 L (12.0-16.0) g/dl Hct 35.6 (34.1-44.9) % Plt Count 199 (130-400) K/uL BMP 10/27/21 14:43 Sodium 141 Potassium 3.4 L Chloride 107 Carbon Dioxide 24 BUN 12 Creatinine 0.80 Glucose 101 H Calcium 8.4 L Liver Function 10/27/21 Range/Units 14:43 Total Bilirubin 0.5 (0.2-1.0) mg/dl AST 16 (13-39) U/L ALT 13 (7-52) U/L Alkaline Phosphatase 111 H (34-104) U/L Albumin 3.8 (3.4-5.0) gm/dl Diagnostic Findings Chest X-Ray 10/27/21 14:28 XR chest 1V portable HISTORY: 71 years-old Female cp acute atypical chest pain COMPARISON: Chest radiograph 09/04/2021 TECHNIQUE: Portable AP view of the chest FINDINGS: Cardiac silhouette is enlarged. Left subclavian pacer. Pulmonary vascular congestion without overt pulmonary edema. No pneumothorax or large pleural effusion. No airspace consolidation. Bones appear grossly intact. IMPRESSION: Cardiomegaly with pulmonary vascular congestion. ACT 112: Negative or not required by law. The above report was generated using voice recognition software. It may contain grammatical, syntax or spelling errors. Electronically signed by: Tarun Ramirez M.D. 10/27/2021 3:24 PM ECG Additional Comments: HR 84 Flat T waves atrial pacemaker with a prolonged AV conduction. No ST elevation QTc is 412. Compared to an ECG from 08 September 2021, no changes Code Status & VTE Plan Code Status Full code in the event of cardiac or respiratory arrest VTE Prophylaxis Plan VTE Prophylaxis will be ordered: Yes Supervising Physician Co-Signing Physician Notes 71-year-old lady with PMH of class III obesity, stress-induced CM, [place], cardiac pacemaker in situ, tachycardia-bradycardia syndrome, paroxysmal A. fib on Eliquis, blood clot, GERD, vitamin B12 deficiency, lumbosacral radiculopathy, HTN, hypothyroidism, JALEN on CPAP presented to our ED 10/27 with complaint of chest discomfort since last 2 to 3 days. Patient reports having pain between bilateral shoulder blades 3 days ago followed by chest discomfort across the chest next day, relieved with deep breath, exacerbated with activity/walking, relieved with nitro/aspirin in route given by EMS, also associated with lightheadedness and shortness of breath. Patient also reports feeling weak and tired and tingling in both arms and nauseated for the same duration. Patient denies any cough or sore throat or runny nose. Patient denies any acute changes in her bowel or bladder habits. Patient denies any smoking history/alcohol use history/drug use history. Full code. Patient denies any personal history of stroke, reports blood clot in lungs in 2015. Family history significant for stroke in mother at age 65, massive heart attack in father at age 62 and her brother of heart problem in his 70s. Labs reviewed, potassium minimally on lower side, replaced, troponin WNL, trend troponin. Echo. Cardiology consult. EKG w/ no new acute changes. Chest x-ray suggestive of pulmonary vascular congestion, patient is supposed to take Lasix as needed but reports not taking any of them, will give a small dose of IV Lasix now, get BNP, echo. May ECHO w/ EF 60-65%, nl LV size and function. No crackles appreciated on exam/under appreciation could be due to morbid obesity. ?? Ac CHF??? Upon examination: GENERAL: Alert and oriented x3. NAD, on RA. Class III obesity HEENT: No pallor, no icterus. Pupils equal, round and reactive to light. Oral mucosa moist. NECK: No JVD, no neck masses. HEART: S1 and S2 heard. Regular rate and rhythm. No murmur, no gallop. RESPIRATORY SYSTEM: Normal AP diameter. No accessory muscle use. No wheezing, no crackles. ABDOMEN: Soft, bowel sounds present, nontender, no distention. CENTRAL NERVOUS SYSTEM: No facial droop. Speech is clear. Obeys simple commands. Moves extremities. EXTREMITIES: No edema, no erythema seen. I have seen and examined the patient and have discussed the case with the provider above. I agree with the assessment and plan as stated. (1) Anemia Anemia type: unspecified type Qualified Code(s): D64.9 - Anemia, unspecified
[2021-10-27] MEDS ORDERED: ALUMINUM/MAGNESIUM SUSP 30 ML UDC PO PRN (16:11)
[2021-10-27] MEDS ORDERED: POLYETHYLENE (MIRALAX) 17 GM PACK PO PRN (16:11)
[2021-10-27] MEDS ORDERED: FUROSEMIDE INJ 20 MG/2 ML VIAL IV ONE (16:21)
[2021-10-27] MEDS: NITROGLYCERIN 2% OINTMENT 30GM TUBE EXT SCH (17:37)
[2021-10-27] MEDS ORDERED: MoRPHine SULFATE 2 MG/ML CARP ONE (18:57)
[2021-10-27] MEDS: MoRPHine SULFATE 2 MG/ML CARP IV PRN ×2 (19:00→23:40)
[2021-10-27] MEDS ORDERED: DOCUSATE SODIUM/SENNA 50/8.6MG TAB PO PRN (20:24)
[2021-10-27] MEDS: ACETAMINOPHEN 325 MG TAB PO PRN (23:07)
[2021-10-27] MEDS: APIXABAN 5 MG TABLET PO SCH (23:40)
[2021-10-27] MEDS: PANTOprazole 40 MG TAB PO SCH (23:40)
[2021-10-27] MEDS: ATORVASTATIN 40 MG TAB PO SCH (23:40)
[2021-10-27] MEDS: ESCITALOPRAM OXALATE 20 MG TAB PO SCH (23:40)
[2021-10-27] MEDS: FAMOTIDINE 20 MG TAB PO SCH (23:40)
[2021-10-28] MEDS: NITROGLYCERIN 2% OINTMENT 30GM TUBE EXT SCH ×4 (00:49→18:11)
[2021-10-28] MEDS: ACETAMINOPHEN 325 MG TAB PO PRN (05:25)
[2021-10-28] MEDS: LEVOTHYROXINE SODIUM 50 MCG TABLET PO SCH (05:26)
[2021-10-28 06:39] LABS: Hematocrit (blood only) 32.9 % (34.1-44.9); Hemoglobin 10.5 g/dl (12.0-16.0); Mean Corpuscular Hemoglobin 28.4 pg (25.0-34.0); Mean Corpuscular Hgb Conc 31.9 g/dL (32.0-36.0); Mean Corpuscular Volume 88.9 fL (80.0-100.0); Platelet Count 194 K/uL (130-400); RDW Coefficient of Variation 17.4 % (11.5-14.5); RDW Standard Deviation 56.5 fL (36.4-46.3); White Blood Count 5.51 K/ul (4.8-10.8)
[2021-10-28] MEDS: MoRPHine SULFATE 2 MG/ML CARP IV PRN ×3 (06:59→21:12)
[2021-10-28 07:04] LABS: BUN Creatinine Ratio 15.9 (10-20); Calcium 8.3 mg/dl (8.5-10.1); Creatinine Clr Calc Pharmacy 82.6 ml/min; Est GFR (African American) 76.6 ml/min; Est GFR (Non-African American) 66.1 ml/min; Magnesium 1.9 mg/dl (1.7-2.4); Phosphorus 3.3 mg/dl (2.5-4.9); Potassium 3.5 mmol/L (3.5-5.1)
[2021-10-28 07:06] LABS: Troponin I High Sensitivity 6.3 pg/ml (0-14)
--- NOTE | 2021-10-28 09:03 | Cardiology Consultation ---
Date of Consultation October 28, 2021 Assessment & Plan (1) Atypical chest pain: (2) Back pain: (3) Paroxysmal A-fib: (4) Pacemaker: (5) Anemia: Plan 71-year-old female admitted with interscapular discomfort. Pain somewhat positional and reproducible with palpation suggesting musculoskeletal etiology. No evidence of acute coronary syndrome with normal high-sensitivity troponin, nonischemic ECG, and echocardiogram demonstrating normal wall motion with preserved LV systolic function. No pericardial effusion or ECG evidence of pericarditis. Normal coronary arteries per cardiac catheterization in 2018. Carries history of PAF however remains atrial paced without dysrhythmia on telemetry. Chronically rhythm controlled with amiodarone. Appropriately anticoagulated without signs of recurrent GI bleeding. Patient's pacemaker is MRI compatible if further imaging considered necessary by the primary service. History of Present Illness Reason for Consultation: Chest pain Requesting Physician: Dr. Arrington Attending Physician: Edgar Hurtado MD History of Present Illness 71-year-old female with history of tachybradycardia syndrome status post pacemaker implantation 07/02/2018, stress-induced cardiomyopathy with normal coronary arteries, 10/22/2017, pulmonary embolus on Coumadin, PAF(Failed Tikosyn due to prolonged QTc) currently treated with amiodarone, and hypertension. No evidence of recurrent atrial fibrillation per most recent pacemaker interrogation 08/26/2021. Reports back pain beginning on Thursday evening. When she laid down to sleep she noted interscapular discomfort which became moderate in intensity. The discomfort waxed and waned throughout the night however, persisted through the weekend. Discomfort somewhat positional and worse when sitting up. Denies exertional chest discomfort or heaviness. No unusual shortness of breath, orthopnea, or PND. Mild pedal edema noted on admission prompting addition of oral furosemide. Continues to note 5/10 discomfort in her interscapular region which is somewhat reproducible on exam. Preliminary review of bedside echocardiogram reveals normal LV systolic function, normal wall motion. ECG on admission with nonspecific T wave abnormality, unchanged when compared to pre vious. Allergies Allergy/AdvReac Type Severity Reaction Status Date / Time celecoxib Allergy Intermediate Hives Verified 10/27/21 16:54 latex Allergy Intermediate RASH Verified 10/27/21 16:54 lisinopril Allergy Intermediate Cough Verified 10/27/21 16:54 Home Medications Medication Instructions Recorded Confirmed Type acetaminophen 325 mg tablet 2 tab PO Q6H PRN Pain 10/22/17 10/27/21 History aspirin 81 mg tablet,delayed 81 mg PO QAM 10/22/17 10/27/21 History release (Vonda Low Dose Aspirin) cholecalciferol (vitamin D3) 25 1,000 units PO QAM 10/22/17 10/27/21 History mcg (1,000 unit) capsule cyanocobalamin (vitamin B-12) 1,000 mcg sublingual QAM 10/22/17 10/27/21 History 1,000 mcg sublingual tablet losartan 100 mg tablet 100 mg PO QAM 10/22/17 10/27/21 History amlodipine 2.5 mg tablet 2.5 mg PO QAM 07/02/18 10/27/21 History amiodarone 200 mg tablet 200 mg PO QAM 12/02/19 10/27/21 History atorvastatin 40 mg tablet (Lipitor) 40 mg PO HS 12/02/19 10/27/21 History metoprolol succinate 25 mg 25 mg PO QAM 12/02/19 10/27/21 History tablet,extended release 24 hr escitalopram oxalate 20 mg tablet 20 mg PO QPM 07/12/20 10/27/21 History famotidine 20 mg tablet 20 mg PO BID 07/12/20 10/27/21 History fluticasone propionate 50 2 spray intranasal DAILY PRN 05/19/21 10/27/21 History mcg/actuation nasal Congestion spray,suspension levothyroxine 50 mcg tablet 50 mcg PO DAILYBB 05/19/21 10/27/21 History furosemide 20 mg tablet (Lasix) 20 mg PO DAILY PRN edema #10 tabs 05/24/21 10/27/21 Rx apixaban 5 mg tablet (Eliquis) 5 mg PO BID #60 tabs 09/10/21 10/27/21 Rx omeprazole 20 mg capsule,delayed 40 mg PO AMHS #30 caps 09/10/21 10/27/21 Rx release sennosides 8.6 mg-docusate sodium 1 tab PO QAM PRN constipation #30 09/10/21 10/27/21 Rx 50 mg tablet (Senokot-S) tabs Patient History Medical History Abdominal pain Atrial fibrillation Paroxysmal atrial fibrillation, on rhythm control strategy with dofetilide, Coumadin (entered by Dr Borges 10/22/17) CAD (coronary artery disease) Hx cardiac cath 2014: coronary arteries have diffuse minor irregularities Chest pain Depression GERD (gastroesophageal reflux disease) GI bleed H/O cholecystitis H/O cholecystitis HLD (hyperlipidemia) HTN (hypertension) Hx pulmonary embolism 2014 Melanotic stools Melena NSTEMI (non-ST elevated myocardial infarction) Obesity JALEN (obstructive sleep apnea) JALEN (obstructive sleep apnea) Paroxysmal atrial fibrillation Stress-induced cardiomyopathy Takotsubo cardiomyopathy Surgical History H/O carpal tunnel repair H/O carpal tunnel repair H/O wisdom tooth extraction H/O: hysterectomy H/O: hysterectomy Hx of cardiac catheterization Hx of cardiac catheterization Angiographically normal coronary arteries, 10/22/17, [facility]. History, echocardiogram, cardiac catheterization data consistent with atypical presentation of stress-induced cardiomyopathy with normal apical wall motion, and hypokinesis to akinesis of the basal left ventricular myocardial segments Family History Father , in 60's of myocardial infarction Myocardial infarction, Onset Age: 62 Brother Myocardial infarction, Onset Age: 68 Other Diabetes Hypertension Social History Smoking Status: Never smoker Second Hand Exposure: No; Hx Alcohol Use: No Hx Substance Use: No Preferred Language: Vietnamese Communication Ability: Effective Visual Impairment: Limited Hearing Ability: Normal Livestock Judging 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 Required: No Beliefs That Will Affect Care: None marital status: Single Current Living Situation: Alone Current Living Situation Comment: appartment Other Information That Helps Us Care for You: No Feels Safe at Home: Yes Safety Concerns: Feels Safe At This Time Assistive Devices: Cane and Walker Review of Systems Review of Systems: All systems reviewed & are unremarkable except as noted in Subjective Physical Exam Constitutional: + morbidly obese; no acute distress and not ill appearing Respiratory: normal respiratory effort; no respiratory distress Ausc ultation: + diminished lung sounds (Bilateral); no crackles, no rales, no rhonchi and no wheezes Cardiovascular: Rate/Rhythm: regular rate and regular rhythm Heart Sounds: normal S1 and normal S2; no click and no murmur Vessels: radial pulses present; no JVD and no carotid bruit Extremities: + edema (Trace to mild bilateral ankle edema) Gastrointestinal (Abdomen): Inspection/Auscultation: abdomen normal to inspection; abdomen not distended Percussion/Palpation: abdomen soft; abdomen nontender, no guarding and abdomen not rigid Neurologic: CN's II-XI intact bilaterally and moves all extremities; no focal motor deficits Motor/Sensory: no tremor Psychiatric: A+Ox3, euthymic affect Results & Data ([facility]) Vital Signs (Past 12 Hours) Vital Signs Temp Pulse Pulse Pulse Resp BP BP 10/28/21 08:07 36.5 C 62 18 119/68 10/28/21 05:26 67 112/57 L 10/28/21 02:42 74 19 10/27/21 22:15 19 10/28/21 01:38 66 122/67 10/28/21 02:38 36.7 C 62 20 101/43 L 10/28/21 00:42 68 197/70 H 10/27/21 23:00 60 10/27/21 22:00 61 10/27/21 21:50 10/27/21 22:13 72 18 110/67 10/27/21 21:41 36.7 C 81 20 207/97 H Pulse Ox O2 Del Method FiO2 10/28/21 08:07 91 Room Air 10/28/21 05:26 10/28/21 02:42 92 21 10/27/21 22:15 92 21 10/28/21 01:38 10/28/21 02:38 90 CPAP 10/28/21 00:42 10/27/21 23:00 10/27/21 22:00 10/27/21 21:50 Room Air 10/27/21 22:13 95 Room Air 10/27/21 21:41 95 Room Air (1) Anemia Anemia type: unspecified type Qualified Code(s): D64.9 - Anemia, unspecified
[2021-10-28] MEDS ORDERED: PERFLUTREN LIPID MICROSPHERE (DEFINITY) IV ONE (09:28)
[2021-10-28] MEDS: amLODIPine BESYLATE 5 MG TAB PO SCH (09:43)
[2021-10-28] MEDS: CYANOCOBALAMIN (B-12) 500 MCG TABLET PO SCH (09:44)
[2021-10-28] MEDS: METOPROLOL SUCC 25MG EXT REL TAB PO SCH (09:44)
[2021-10-28] MEDS: FAMOTIDINE 20 MG TAB PO SCH ×2 (09:44→21:09)
[2021-10-28] MEDS: ASPIRIN 81 MG ECTAB PO SCH (09:44)
[2021-10-28] MEDS: AMIODARONE 200 MG TAB PO SCH (09:44)
[2021-10-28] MEDS: APIXABAN 5 MG TABLET PO SCH ×2 (09:45→21:10)
[2021-10-28] MEDS: LOSARTAN POTASSIUM 50 MG TAB PO SCH (09:45)
[2021-10-28] MEDS: PANTOprazole 40 MG TAB PO SCH ×2 (09:45→21:09)
--- NOTE | 2021-10-28 10:19 | Electrocardiogram Report ---
Test Reason : Blood Pressure : / mmHG Vent. Rate : 084 BPM Atrial Rate : 091 BPM P-R Int : 236 ms QRS Dur : 100 ms QT Int : 434 ms P-R-T Axes : 000 025 -01 degrees QTc Int : 512 ms Atrial-paced rhythm with prolonged AV conduction Nonspecific ST and T wave abnormality Abnormal ECG When compared with ECG of 08-SEP-2021 08:58, No significant change was found Confirmed by Nithin Stearns ([id number]) on 10/28/2021 10:19:10 AM Referred By: REFERRED SELF Confirmed By:Nithin Stearns
[2021-10-28] MEDS ORDERED: OPTIRAY 300 500mL IV ONE (15:47)
--- NOTE | 2021-10-28 16:08 | CT Scan Report ---
CT angio chest dissec wo/w con CLINICAL HISTORY: r/o dissection, chest pain/back pain TECHNIQUE: Multidetector row helical CT of the chest was performed before and after injection of IV c ontrast. Coronal and sagittal reformations were obtained. Automated dose lowering techniques and/or a djustment according to patient size were utilized for this exam. Comparison: Comparison is made to CTA chest 10/26/2017 and chest radiograph 1122 FINDINGS: Lungs and pleura: Peripheral interstitial reticular changes are seen, increased from exam of 2018. Heart and pericardium: Heart size is normal. No pericardial effusion. Vessels: Mild atherosclerotic changes in the aorta and coronary arteries. The pulmonary trunk measure s 31 mm in diameter. No evidence of acute aortic injury is seen. Mediastinum and agustín: A 9 mm lymph node is seen in the aortopulmonary window. There is a lipid densit y lesion in the right hilum which is unchanged from 2018 which likely represents a hamartoma. This me asures 15 mm x 22 mm. Chest wall and lower neck: Small thyroid nodules are noted which do not require follow-up by ACR melissa manuel. Abdomen: For findings below the diaphragm, please refer to CT of the abdomen dated the same. Bones: Degenerative changes in the thoracic spine. IMPRESSION: 1. No acute abnormality and in particular no evidence of acute aortic injury. 2. Interstitial peripheral thickening compatible with pulmonary fibrosis. ACT 112: Negative or not required by law. Electronically signed by: Lionel Manzo M.D. 10/28/2021 4:06 PM
--- NOTE | 2021-10-28 16:14 | Electrocardiogram Report ---
Test Reason : Blood Pressure : / mmHG Vent. Rate : 062 BPM Atrial Rate : 062 BPM P-R Int : 230 ms QRS Dur : 094 ms QT Int : 456 ms P-R-T Axes : -15 017 001 degrees QTc Int : 462 ms Atrial-paced rhythm with prolonged AV conduction Low voltage QRS Nonspecific ST and T wave abnormality Abnormal ECG When compared with ECG of 27-OCT-2021 14:26, (unconfirmed) No significant change was found Confirmed by Nithin Stearns ([id number]) on 10/28/2021 4:13:59 PM Referred By: REFERRED SELF Confirmed By:Nithin Stearns
--- NOTE | 2021-10-28 17:39 | CT Scan Report ---
ABDOMEN AND PELVIS CT WITHOUT CONTRAST CT DOSE: 3840.58 mGy.cm HISTORY: Acute epigastric abdominal pain ff up hiatal hernia TECHNIQUE: Multiaxial CT images of the abdomen and pelvis were performed without contrast. A dose lo wering technique was utilized adhering to the principles of ALARA. COMPARISON STUDY: CTA chest of same day, CT abdomen and pelvis 09/19/2018 FINDINGS: The heart is enlarged. Partially imaged pacer leads. Subpleural reticulation suggestive of fibrosis w ith intermixed atelectasis in mild air trapping. Patient body habitus limits the study. No pneumatosi s or pneumoperitoneum. The unenhanced spleen, moderately atrophic pancreas and adrenal glands are unremarkable. Cholecystect kevin. The liver is within normal limits. Mild nonspecific bilateral perinephric stranding. No definite renal or ureteral calculi identified. No hydronephrosis. Decompressed or bladder with wall thickenin g. Hysterectomy. No adnexal mass lesion. No abdominal aortic aneurysm or lymphadenopathy. Tiny fat filled hiatal hernia. There is no stomach mucosa extending through the hernia sac. Small duo denal diverticulum. No bowel obstruction or bowel wall thickening. Mild colonic diverticulosis. The a ppendix is surgically absent. No ascites or mesenteric inflammation. Unremarkable soft tissues. No ac [place] fracture. Postoperative changes of the lumbar spine with posterior interbody santino and screw fusion and discectomy at L4-S1. No evidence of hardware fracture or loosening. IMPRESSION: 1. No acute intra-abdominal or intrapelvic abnormality. 2. No bowel obstruction or bowel wall thickening. 3. Cholecystectomy, appendectomy and hysterectomy. 4. Colonic diverticulosis. 5. Additional findings as above. ACT 112: Negative or not required by law. The above report was generated using voice recognition software. It may contain grammatical, syntax o r spelling errors. Electronically signed by: Tarun Ramirez M.D. 10/28/2021 5:37 PM
--- NOTE | 2021-10-28 18:12 | Hospitalist Progress Note ---
Date of Service October 28, 2021 Assessment & Plan (1) Chest pain: (2) H/O cardiac pacemaker: (3) Atrial fibrillation, controlled: (4) HTN (hypertension): (5) Hypothyroidism: (6) Depression: (7) Paroxysmal A-fib: (8) Anemia: (9) JALEN (obstructive sleep apnea): Plan Per admitting service notes with addendum: Ms. Banerjee is a 71 year old who presented to the [facility] [place] after having three days worth of chest pain and discomfort in her anterior chest and shoulder blades. Chest x-ray suggestive of pulmonary vascular congestion, patient is supposed to take Lasix PRN but reports not taking any of them, will give a small dose of IV Lasix now. Trend Trops, BNP, ECHO. Cards Consult. Chest pain: Three days chest pain and discomfort in her anterior chest and shoulder blades. Thursday night the pain started between her shoulder blades and then Thursday her actual chest pain started. She reports the pain to be 9/10 Takes baby aspirin Pt sees Dr. Frias OP; cardiology consult placed ECHO; 06/07 ECHO w/ EF 60-65%, normal LV size and function. EKG in AM BNP ordered One dose of Lasix now; reevaluate tmw. Cardiology consult; possible acute on chronic CHF 10/28 Acute coronary syndrome ruled out --Troponins negative x3, EKG no signs of acute ischemia, echocardiogram no left ventricular wall motion abnormalities Aortic dissection ruled out --CT angiogram negative CT abdomen pelvis: Tiny hiatal hernia Possible thoracic spine related? -- Tylenol 1 g every 8 hours, Lidoderm patch, heating pad, PT and OT --We will order imaging of the thoracic lumbar spine tomorrow H/O pacemaker: atrial pacemaker due to bradycardia in 2019. Atrial fibrillation; controlled: was on Warfarin and switched to Eloquis in 08/07 Takes Amiodarone and ASA HTN: controlled in ED. Continue Amplodipine, losartan, and Metoprolol JALEN: Wears CPAP at night Dyslipidemia: Continue Lipitor lipid panel in AM Hypothyroidism: Stable; Continue Levothyroxine Depression: stable; takes Lexapro Anemia: chronic; baseline. Hgb 11.3 Disposition: Code: Full PCP: Dr. Richard VTE Prophylaxis: Plan to return home at [place] Admission and Anticipated Discharge Date Admission Date: October 28, 2021 Subjective Follow-up for chest pain, etc. Seen sitting in bed, not in distress Still reporting diffuse chest discomfort, pressure, associated with upper back pain, sharp No shortness of breath, nausea vomiting, dizziness, sweating Denies abdominal pain no other symptoms Review of Systems Review of Systems: all noted and negative except for above Physical Exam Physical Exam: General- oriented x 3, not in distress, speaks in sentences with no effort or accessory muscle use Eyes- anicteric Neck- no JVD Lungs- clear breath sounds bilaterally, no rales/wheezes Heart- normal rate, regular rhythm; no murmurs Abdomen- normal bowel sounds, nondistended, soft, nontender Extremities- no pretibial edema, no calf tenderness Neuro- alert, oriented x 3; no gross focal neurologic deficits Skin- warm & dry Results & Data Results & Data ([facility]) Vital Signs (Past 12 Hours) Vital Signs Temp Pulse Pulse Resp BP Pulse Ox O2 Del Method 10/28/21 15:15 63 10/28/21 11:40 36.8 C 62 18 128/80 98 Room Air 10/28/21 08:07 36.5 C 62 18 119/68 91 Room Air all noted and reviewed including below (1) Anemia Anemia type: unspecified type Qualified Code(s): D64.9 - Anemia, unspecified
[2021-10-28] MEDS ORDERED: LIDOCAINE 5% 1 PATCH TD SCH (18:15)
[2021-10-28] MEDS: ATORVASTATIN 40 MG TAB PO SCH (21:09)
[2021-10-28] MEDS: ESCITALOPRAM OXALATE 20 MG TAB PO SCH (21:10)
[2021-10-29] MEDS: LEVOTHYROXINE SODIUM 50 MCG TABLET PO SCH (05:50)
[2021-10-29] MEDS: MoRPHine SULFATE 2 MG/ML CARP IV PRN ×3 (05:54→21:43)
[2021-10-29] MEDS: AMIODARONE 200 MG TAB PO SCH (08:19)
[2021-10-29] MEDS: CYANOCOBALAMIN (B-12) 500 MCG TABLET PO SCH (08:19)
[2021-10-29] MEDS: FAMOTIDINE 20 MG TAB PO SCH ×2 (08:19→20:54)
[2021-10-29] MEDS: PANTOprazole 40 MG TAB PO SCH ×2 (08:19→20:54)
[2021-10-29] MEDS: LOSARTAN POTASSIUM 50 MG TAB PO SCH (08:19)
[2021-10-29] MEDS: APIXABAN 5 MG TABLET PO SCH ×2 (08:19→20:54)
[2021-10-29] MEDS: METOPROLOL SUCC 25MG EXT REL TAB PO SCH (08:20)
[2021-10-29] MEDS: ASPIRIN 81 MG ECTAB PO SCH (08:20)
[2021-10-29] MEDS: amLODIPine BESYLATE 5 MG TAB PO SCH (08:20)
--- NOTE | 2021-10-29 09:12 | Cardiology Progress Note ---
Date of Service October 29, 2021 Assessment & Plan (1) Back pain: (2) Atypical chest pain: (3) Paroxysmal A-fib: (4) Pacemaker: (5) Anemia: Plan 71-year-old female admitted with interscapular discomfort, likely musculoskeletal etiology. No evidence of acute coronary syndrome with normal high-sensitivity troponin, nonischemic ECG, and echocardiogram demonstrating normal wall motion with preserved LV systolic function. No pericardial effusion or ECG evidence of pericarditis. Normal coronary arteries per cardiac catheterization in 2018. History of PAF however remains atrial paced without dysrhythmia on telemetry. Chronically rhythm controlled with amiodarone. Appropriately anticoagulated without signs of recurrent GI bleeding. Continue cardiovascular medications. Further evaluation of back pain with MRI scheduled per primary service. Admission and Anticipated Discharge Date Admission Date: October 28, 2021 Subjective Patient seen examined the bedside. Thoracic pain somewhat improved with use of Lidoderm patch, however, utilized IV morphine overnight. Scheduled for MRI today. Denies chest discomfort or shortness of breath. Mild bilateral pedal edema unchanged. Telemetry reveals atrial paced rhythm. Review of Systems Review of Systems: All systems reviewed & are unremarkable except as noted in Subjective Physical Exam Constitutional: + morbidly obese; no acute distress and not ill appearing Respiratory: normal respiratory effort; no respiratory distress Auscultation: + diminished lung sounds (Bilateral); no crackles, no rales, no rhonchi and no wheezes Cardiovascular: Rate/Rhythm: regular rate and regular rhythm Heart Sounds: normal S1 and normal S2; no click and no murmur Vessels: radial pulses present; no JVD and no carotid bruit Extremities: + edema (Trace to mild bilateral ankle edema) Gastrointestinal (Abdomen): Inspection/Auscultation: abdomen normal to inspection; abdomen not distended Percussion/Palpation: abdomen soft; abdomen nontender, no guarding and abdomen not rigid Neurologic: CN's II-XI intact bilaterally and moves all extremities; no focal motor deficits Motor/Sensory: no tremor Psychiatric: A+Ox3, euthymic affect Results & Data ([facility]) Vital Signs (Past 12 Hours) Vital Signs Temp Pulse Pulse Resp BP Pulse Ox O2 Del Method 10/29/21 07:58 36.7 C 60 18 136/65 90 10/29/21 07:04 60 10/29/21 03:22 62 22 92 10/29/21 02:16 36.5 C 60 18 133/70 91 BiPAP 10/28/21 23:40 61 10/28/21 23:19 36.6 C 60 18 135/78 90 BiPAP 10/28/21 22:15 24 93 FiO2 10/29/21 07:58 10/29/21 07:04 10/29/21 03:22 21 10/29/21 02:16 10/28/21 23:40 10/28/21 23:19 10/28/21 22:15 21 (1) Anemia Anemia type: unspecified type Qualified Code(s): D64.9 - Anemia, unspecified
[2021-10-29] MEDS: FUROSEMIDE 20 MG TAB PO SCH (09:51)
--- NOTE | 2021-10-29 11:07 | CT Scan Report ---
CT thoracic spine wo con, CT lumbar spine wo con CLINICAL HISTORY: back pain TECHNIQUE: Multidetector row helical CT of the thoracic and lumbar spine was performed without admini stration of intravenous contrast. Coronal and sagittal reformations were obtained. Automated dose low ering techniques and/or adjustment according to patient size were utilized for this exam. CT DOSE: 2301.64 mGy.cm Comparison: Comparison is made to CT chest abdomen pelvis 10/28/2021 and chest radiograph 09/02/2018 FINDINGS: Redemonstration of anterior wedge deformity of T7 which is unchanged from 2019. Posterior fixation cramer rdware is seen spanning L4-S1. There is grade 1 retrolisthesis of L2-L3. Degenerative changes are see n in the spine. Surrounding soft tissues are unremarkable. IMPRESSION: No acute fracture is seen. Degenerative changes and postsurgical changes are seen as above. ACT 112: Negative or not required by law. Electronically signed by: Lionel Manzo M.D. 10/29/2021 11:06 AM
[2021-10-29] MEDS ORDERED: POLYETHYLENE (MIRALAX) 17 GM PACK PO SCH (11:45)
[2021-10-29] MEDS: GABAPENTIN 100 MG CAP PO SCH ×2 (12:25→20:55)
[2021-10-29] MEDS: predniSONE 20 MG TAB PO SCH (12:25)
--- NOTE | 2021-10-29 13:28 | Hospitalist Progress Note ---
Date of Service October 29, 2021 Assessment & Plan (1) Chest pain: (2) H/O cardiac pacemaker: (3) Atrial fibrillation, controlled: (4) HTN (hypertension): (5) Hypothyroidism: (6) Depression: (7) Paroxysmal A-fib: (8) Anemia: (9) JALEN (obstructive sleep apnea): Plan Per admitting service notes with addendum: Ms. Banerjee is a 71 year old who presented to the [facility] after having three days worth of chest pain and discomfort in her anterior chest and shoulder blades. Chest x-ray suggestive of pulmonary vascular congestion, patient is supposed to take Lasix PRN but reports not taking any of them, will give a small dose of IV Lasix now. Trend Trops, BNP, ECHO. Cards Consult. Chest pain, Acute Coronary Syndrome rule out Three days chest pain and discomfort in her anterior chest and shoulder blades. Thursday night the pain started between her shoulder blades and then Thursday her actual chest pain started. She reports the pain to be 10/26 Takes baby aspirin Pt sees Dr. Frias OP; cardiology consult placed ECHO; 06/07 ECHO w/ EF 60-65%, normal LV size and function. EKG in AM BNP ordered One dose of Lasix now; reevaluate tmw. Cardiology consult; possible acute on chronic CHF 10/29 Acute coronary syndrome ruled out --Troponins negative x3, EKG no signs of acute ischemia, echocardiogram no left ventricular wall motion abnormalities Date Night Sitter consulted- Lasix 20mg po daily added Aortic dissection ruled out --CT angiogram negative CT abdomen pelvis: Tiny hiatal hernia Possible thoracic, lumbar spine related? -- Tylenol 1 g every 8 hours, Lidoderm patch, heating pad, PT and OT -- CT thoracic and Lumbar spine: Redemonstration of anterior wedge deformity of T7 which is unchanged from 2019. Posterior fixation hardware is seen spanning L4-S1. There is grade 1 retrolisthesis of L2-L3. Degenerative changes are seen in the spine. Surrounding soft tissues are unremarkable. IMPRESSION: No acute fracture is seen. Degenerative changes and postsurgical changes are seen as above. -- start Prednisone 40mg po daily, Gabapentin 100mg BID Ortho Spine consulted- Dr. Tanner H/O pacemaker: atrial pacemaker due to bradycardia in 2019. Atrial fibrillation; controlled: was on Warfarin and switched to Eliquis in 08/07 Takes Amiodarone and ASA HTN: controlled in ED. Continue Amplodipine, losartan, and Metoprolol JALEN: Wears CPAP at night Dyslipidemia: Continue Lipitor Hypothyroidism: Stable; Continue Levothyroxine Depression: stable; takes Lexapro Anemia: chronic; baseline. Hgb 11.3 Disposition: Code: Full PCP: Dr. Richard VTE Prophylaxis: PT/OT evaluation Lives at home, may need acute rehab Admission and Anticipated Discharge Date Admission Date: October 28, 2021 Subjective ff up for chest pain, back pain, etc seen resting in bed, comfortable states her chest pain has resolved still has upper back pain and lower back pain- sharp radiating to her L lower leg with some numbness not able to walk properly due to pain no incontinence chest pain resolved no dyspnea, palpitations, dizziness no other symptoms Review of Systems Review of Systems: all noted and negative except for above Physical Exam Physical Exam: General- oriented x 3, not in distress, speaks in sentences with no effort or accessory muscle use Eyes- anicteric Neck- no JVD Lungs- clear BS bilaterally, no rales/wheezes Heart- normal rate, regular rhythm; no murmurs Abdomen- normal bowel sounds, nondistended, soft, nontender Extremities- mild pretibial edema, no calf tenderness Back- (+) tenderness on the thoracic spine region Neuro- alert, oriented x 3; no gross focal neurologic deficits Skin- warm & dry Results & Data Results & Data ([facility]) Vital Signs (Past 12 Hours) Vital Signs Temp Pulse Pulse Resp BP Pulse Ox O2 Del Method 10/29/21 11:38 36.7 C 60 18 134/77 94 10/29/21 07:58 36.7 C 60 18 136/65 90 10/29/21 07:04 60 10/29/21 03:22 62 22 92 10/29/21 02:16 36.5 C 60 18 133/70 91 BiPAP FiO2 10/29/21 11:38 10/29/21 07:58 10/29/21 07:04 10/29/21 03:22 21 10/29/21 02:16 all noted and reviewed including below (1) Anemia Anemia type: unspecified type Qualified Code(s): D64.9 - Anemia, unspecified
--- NOTE | 2021-10-29 14:02 | Electrocardiogram Report ---
Test Reason : Blood Pressure : / mmHG Vent. Rate : 062 BPM Atrial Rate : 062 BPM P-R Int : 000 ms QRS Dur : 100 ms QT Int : 442 ms P-R-T Axes : 000 037 018 degrees QTc Int : 448 ms Atrial-paced rhythm Nonspecific ST and T wave abnormality Abnormal ECG When compared with ECG of 28-OCT-2021 06:03, No significant change was found Confirmed by Nithin Stearns ([id number]) on 10/29/2021 2:02:25 PM Referred By: REFERRED SELF Confirmed By:Nithin Stearns
[2021-10-29] MEDS: ATORVASTATIN 40 MG TAB PO SCH (20:54)
[2021-10-29] MEDS: ESCITALOPRAM OXALATE 20 MG TAB PO SCH (20:55)
[2021-10-29] MEDS: LIDOCAINE 5% 1 PATCH TD SCH (20:55)
[2021-10-30] MEDS: LEVOTHYROXINE SODIUM 50 MCG TABLET PO SCH (06:48)
[2021-10-30] MEDS: MoRPHine SULFATE 2 MG/ML CARP IV PRN ×3 (06:56→22:54)
[2021-10-30] MEDS: CYANOCOBALAMIN (B-12) 500 MCG TABLET PO SCH (08:07)
[2021-10-30] MEDS: FAMOTIDINE 20 MG TAB PO SCH ×2 (08:07→21:26)
[2021-10-30] MEDS: ASPIRIN 81 MG ECTAB PO SCH (08:07)
[2021-10-30] MEDS: AMIODARONE 200 MG TAB PO SCH (08:07)
[2021-10-30] MEDS: amLODIPine BESYLATE 5 MG TAB PO SCH (08:07)
[2021-10-30] MEDS: predniSONE 20 MG TAB PO SCH (08:08)
[2021-10-30] MEDS: LOSARTAN POTASSIUM 50 MG TAB PO SCH (08:08)
[2021-10-30] MEDS: PANTOprazole 40 MG TAB PO SCH ×2 (08:08→21:26)
[2021-10-30] MEDS: APIXABAN 5 MG TABLET PO SCH ×2 (08:08→21:26)
[2021-10-30] MEDS: METOPROLOL SUCC 25MG EXT REL TAB PO SCH (08:08)
[2021-10-30] MEDS: GABAPENTIN 100 MG CAP PO SCH ×2 (08:08→21:25)
[2021-10-30] MEDS: FUROSEMIDE 20 MG TAB PO SCH (08:08)
--- NOTE | 2021-10-30 09:28 | Cardiology Progress Note ---
Date of Service October 30, 2021 Assessment & Plan (1) Back pain: (2) Atypical chest pain: (3) Paroxysmal A-fib: (4) Pacemaker: (5) Anemia: Plan 71-year-old female admitted with interscapular discomfort, likely musculoskeletal etiology. Orthopedic consultation pending. CT without evidence of acute fracture. Continue furosemide 20 mg daily. Repeat BMP in AM. Likely reduce frequency of diuretic to 2-3 days/week upon discharge. No evidence of acute coronary syndrome with normal high-sensitivity troponin, nonischemic ECG, and echocardiogram demonstrating normal wall motion with preserved LV systolic function. No pericardial effusion or ECG evidence of pericarditis. Normal coronary arteries per cardiac catheterization in 2018. History of PAF however remains atrial paced without dysrhythmia on telemetry. Chronically rhythm controlled with amiodarone. Appropriately anticoagulated without signs of recurrent GI bleeding. Admission and Anticipated Discharge Date Admission Date: October 28, 2021 Subjective Patient seen examined the bedside. Back pain worsening this morning. Orthopedic consult pending. Edema unchanged with addition of furosemide. Denies chest pain or shortness of breath. No orthopnea or PND. Denies palpitations. Telemetry reveals atrial paced rhythm at 60 bpm. Review of Systems Review of Systems: All systems reviewed & are unremarkable except as noted in Subjective Physical Exam Constitutional: + morbidly obese; no acute distress and not ill appearing Respiratory: normal respiratory effort; no respiratory distress Auscultation: + diminished lung sounds (Bilateral); no crackles, no rales, no rhonchi and no wheezes Cardiovascular: Rate/Rhythm: regular rate and regular rhythm Heart Sounds: normal S1 and normal S2; no click and no murmur Vessels: radial pulses present; no JVD and no carotid bruit Extremities: + edema (Trace to mild bilateral ankle edema) Gastrointestinal (Abdomen): Inspection/Auscultation: abdomen normal to inspection; abdomen not distended Percussion/Palpation: abdomen soft; abdomen nontender, no guarding and abdomen not rigid Neurologic: CN's II-XI intact bilaterally and moves all extremities; no focal motor deficits Motor/Sensory: no tremor Psychiatric: A+Ox3, euthymic affect Results & Data ([facility]) Vital Signs (Past 12 Hours) Vital Signs Temp Pulse Pulse Resp BP Pulse Ox O2 Del Method 10/30/21 07:37 36.6 C 58 L 18 124/65 92 Room Air 10/30/21 07:03 60 10/30/21 03:23 36.7 C 60 18 110/63 93 CPAP 10/30/21 02:31 60 23 94 10/30/21 00:00 63 10/29/21 22:32 66 21 93 10/29/21 22:35 36.6 C 78 18 121/70 97 Room Air FiO2 10/30/21 07:37 10/30/21 07:03 10/30/21 03:23 10/30/21 02:31 21 10/30/21 00:00 10/29/21 22:32 21 10/29/21 22:35 (1) Anemia Anemia type: unspecified type Qualified Code(s): D64.9 - Anemia, unspecified
--- NOTE | 2021-10-30 09:45 | Consultation ---
Date of Consultation October 30, 2021 Assessment & Plan (1) Back pain: Dr. Tanner has reviewed her thoracic and lumbar CT scans. I believe her thoracic pain is pleuritic pain. Treatment is conservative. It is improving now that her chest pain is improving Her lower back pain is chronic. She certainly may have adjacent level stenosis but this is difficult to assess on her CT scan. Treatment currently is conservative. She is a very poor surgical candidate in light of her multiple medical and cardiac comorbidities. Ultimately we can see her as an outpatient and pursue MRI of the lumbar spine if her pacemaker is MRI compatible. Most likely will consider referral to pain management at that point in time. This is all been reviewed with the patient and she expresses understanding. History of Present Illness Reason for Consultation: Back pain Attending Physician: Theodore Stephen MD History of Present Illness This is a 71-year-old female well-known to us. She has had [address] Tanner in 2011 and 2012. She has 2 separate issues upon evaluation. 1 is an acute onset of periscapular pain that led to s ubsequent chest pain and admission. This is improving now that her chest pain has resolved. Second issue is chronic lower back pain which she has had for well over a year and a half. She has complex medical history/cardiac history including pacemaker. She is unsure if it is MRI compatible. She is on anticoagulation as well. She states she has pain down both of her legs as well. She states she has difficult time walking or standing any length of time due to her lower back pain. Over the past year and a half she has not had any recent work-up or treatment for her lower back issues. Allergies Allergy/AdvReac Type Severity Reaction Status Date / Time celecoxib Allergy Intermediate Hives Verified 10/27/21 16:54 latex Allergy Intermediate RASH Verified 10/27/21 16:54 lisinopril Allergy Intermediate Cough Verified 10/27/21 16:54 Home Medications Medication Instructions Recorded Confirmed Type acetaminophen 325 mg tablet 2 tab PO Q6H PRN Pain 10/22/17 10/27/21 History aspirin 81 mg tablet,delayed 81 mg PO QAM 10/22/17 10/27/21 History release (Vonda Low Dose Aspirin) cholecalciferol (vitamin D3) 25 1,000 units PO QAM 10/22/17 10/27/21 History mcg (1,000 unit) capsule cyanocobalamin (vitamin B-12) 1,000 mcg sublingual QAM 10/22/17 10/27/21 History 1,000 mcg sublingual tablet losartan 100 mg tablet 100 mg PO QAM 10/22/17 10/27/21 History amlodipine 2.5 mg tablet 2.5 mg PO QAM 07/02/18 10/27/21 History amiodarone 200 mg tablet 200 mg PO QAM 12/02/19 10/27/21 History atorvastatin 40 mg tablet (Lipitor) 40 mg PO HS 12/02/19 10/27/21 History metoprolol succinate 25 mg 25 mg PO QAM 12/02/19 10/27/21 History tablet,extended release 24 hr escitalopram oxalate 20 mg tablet 20 mg PO QPM 07/12/20 10/27/21 History famotidine 20 mg tablet 20 mg PO BID 07/12/20 10/27/21 History fluticasone propionate 50 2 spray intranasal DAILY PRN 05/19/21 10/27/21 History mcg/actuation nasal Congestion spray,suspension levothyroxine 50 mcg tablet 50 mcg PO DAILYBB 05/19/21 10/27/21 History furosemide 20 mg tablet (Lasix) 20 mg PO DAILY PRN edema #10 tabs 05/24/21 10/27/21 Rx apixaban 5 mg tablet (Eliquis) 5 mg PO BID #60 tabs 09/10/21 10/27/21 Rx omeprazole 20 mg capsule,delayed 40 mg PO AMHS #30 caps 09/10/21 10/27/21 Rx release sennosides 8.6 mg-docusate sodium 1 tab PO QAM PRN constipation #30 09/10/21 10/27/21 Rx 50 mg tablet (Senokot-S) tabs Patient History Medical History Abdominal pain Atrial fibrillation Paroxysmal atrial fibrillation, on rhythm control strategy with dofetilide, Coumadin (entered by Dr Borges 10/22/17) CAD (coronary artery disease) Hx cardiac cath 2015: coronary arteries have diffuse minor irregularities Chest pain Depression GERD (gastroesophageal reflux disease) GI bleed H/O cholecystitis H/O cholecystitis HLD (hyperlipidemia) HTN (hypertension) Hx pulmonary embolism 2014 Melanotic stools Melena NSTEMI (non-ST elevated myocardial infarction) Obesity JALEN (obstructive sleep apnea) JALEN (obstructive sleep apnea) Paroxysmal atrial fibrillation Stress-induced cardiomyopathy Takotsubo cardiomyopathy Surgical History H/O carpal tunnel repair H/O carpal tunnel repair H/O wisdom tooth extraction H/O: hysterectomy H/O: hysterectomy Hx of cardiac catheterization Hx of cardiac catheterization Angiographically normal coronary arteries, 10/22/17, [facility]. History, echocardiogram, cardiac catheterization data consistent with atypical pres entation of stress-induced cardiomyopathy with normal apical wall motion, and hypokinesis to akinesis of the basal left ventricular myocardial segments Family History Father , in 60's of myocardial infarction Myocardial infarction, Onset Age: 62 Brother Myocardial infarction, Onset Age: 68 Other Diabetes Hypertension Social History Smoking Status: Never smoker Second Hand Exposure: No; Hx Alcohol Use: No Hx Substance Use: No Preferred Language: Pry[place]in[place] Communication Ability: Effective Visual Impairment: Limited Hearing Ability: Normal Machine Wiper Required: No Beliefs That Will Affect Care: None marital status: Single Current Living Situation: Alone Current Living Situation Comment: appartment Other Information That Helps Us Care for You: No Feels Safe at Home: Yes Safety Concerns: Feels Safe At This Time Assistive Devices: Cane and Walker Review of Systems Review of Systems: All systems reviewed & are unremarkable except as noted in HPI & below Physical Exam Physical Exam: She sitting up in bed in no acute distress She is able to move on her own without assistance for examination of her thoracic and lumbar spine. She is nontender to palpation throughout the thoracic region. She has a well- healed lumbar incision She is exquisitely tender over the bilateral sciatic notch regions Strength is intact bilateral lower extremities Constitutional: + morbidly obese Eyes: normal visual mackenzie by confrontation ENMT: external ear and nose normal, oropharynx normal Neck: normal visual inspection Respiratory: normal respiratory effort Cardiovascular: Extremities: normal capillary refill Gastrointestinal (Abdomen): Inspection/Auscultation: abdomen normal to inspection Musculoskeletal: Extremities: extremities normal to inspection and strength 5/5 throughout Skin: no rashes, warm and dry normal turgor Neurologic: normal touch/pain/proprioception and moves all extremities Psychiatric: Eye Contact: good eye contact Speech: normal rate/rhythm/volume of speech Results & Data ([facility]) Vital Signs (Past 12 Hours) Vital Signs Temp Pulse Pulse Resp BP Pulse Ox O2 Del Method 10/30/21 07:37 36.6 C 58 L 18 124/65 92 Room Air 10/30/21 07:03 60 10/30/21 03:23 36.7 C 60 18 110/63 93 CPAP 10/30/21 02:31 60 23 94 10/30/21 00:00 63 10/29/21 22:32 66 21 93 10/29/21 22:35 36.6 C 78 18 121/70 97 Room Air FiO2 10/30/21 07:37 10/30/21 07:03 10/30/21 03:23 10/30/21 02:31 21 10/30/21 00:00 10/29/21 22:32 21 10/29/21 22:35
--- NOTE | 2021-10-30 13:37 | Hospitalist Progress Note ---
Date of Service October 30, 2021 Assessment & Plan (1) Chest pain: (2) H/O cardiac pacemaker: (3) Atrial fibrillation, controlled: (4) HTN (hypertension): (5) Hypothyroidism: (6) Depression: (7) Paroxysmal A-fib: (8) Anemia: (9) JALEN (obstructive sleep apnea): Plan Per admitting service notes with addendum: Ms. Banerjee is a 71 year old who presented to the [facility] after having three days worth of chest pain and discomfort in her anterior chest and shoulder blades. Chest x-ray suggestive of pulmonary vascular congestion, patient is supposed to take Lasix PRN but reports not taking any of them, will give a small dose of IV Lasix now. Trend Trops, BNP, ECHO. Cards Consult. Chest pain, Acute Coronary Syndrome rule out Three days chest pain and discomfort in her anterior chest and shoulder blades. EKG shows atrial paced rhythm High sensitive troponin -ve 3 times EchoEF of 60 to 65%; moderate concentric LVH Aortic dissection ruled out CT angiogram negative CT abdomen pelvis: Tiny hiatal hernia Plan; Continue her home medication; amiodarone and Eliquis. -Continue on metoprolol succinate and losartan. -Lasix started at 20 mg once daily. Will discharge on 3 times a week. Back Pain 2/ Osteoarthritis -CT thoracic lumbar spine done which did not show any acute fracture; degenerative and postsurgical changes seen. -Dr. Tanner consulted; recommend conservative management. -Plan to discharge on gabapentin 100 mg twice daily. H/O pacemaker: atrial pacemaker due to bradycardia in 2018. Atrial fibrillation; controlled: was on Warfarin and switched to Eliquis in 08/07 Takes Amiodarone and ASA HTN: controlled in ED. Continue Amplodipine, losartan, and Metoprolol JALEN: Wears CPAP at night Dyslipidemia: Continue Lipitor Hypothyroidism: Stable; Continue Levothyroxine Depression: stable; takes Lexapro Anemia: chronic; baseline. Hgb 11.3 Disposition: Code: Full PCP: Dr. Richard VTE Prophylaxis: Lives at home. Would like to return back home. Possible DC in a.m. Admission and Anticipated Discharge Date Admission Date: October 28, 2021 Subjective Patient seen and examined at bedside. She is comfortably sitting up on the bed; not in any acute distress. She denies any episode of chest pain or shortness of breath. Telemetry showed paced rhythm at 60 bpm. Review of Systems Review of Systems: All systems reviewed & are unremarkable except as noted in Subjective Physical Exam Physical Exam: General- oriented x 3, not in distress, speaks in sentences with no effort or accessory muscle use Eyes- anicteric Neck- no JVD Lungs- clear BS bilaterally, no rales/wheezes Heart- normal rate, regular rhythm; no murmurs Abdomen- normal bowel sounds, nondistended, soft, nontender Extremities- mild pretibial edema, no calf tenderness Neuro- alert, oriented x 3; no gross focal neurologic deficits Skin- warm & dry Results & Data Results & Data ([facility]) Vital Signs (Past 12 Hours) Vital Signs Temp Pulse Pulse Pulse Resp BP Pulse Ox 10/30/21 11:14 36.4 C L 64 18 134/72 92 10/30/21 07:37 36.6 C 58 L 18 124/65 92 10/30/21 07:03 60 10/30/21 03:23 36.7 C 60 18 110/63 93 10/30/21 02:31 60 23 94 O2 Del Method FiO2 10/30/21 11:14 Room Air 10/30/21 07:37 Room Air 10/30/21 07:03 10/30/21 03:23 CPAP 10/30/21 02:31 21 Laboratory Results Laboratory Results WBC 5.51 K/ul (4.8-10.8) 10/28/21 06:20 RBC 3.70 M/uL (3.93-5.22) L 10/28/21 06:20 Hgb 10.5 g/dl (12.0-16.0) L 10/28/21 06:20 Hct 32.9 % (34.1-44.9) L 10/28/21 06:20 MCV 88.9 fL (80.0-100.0) 10/28/21 06:20 MCH 28.4 pg (25.0-34.0) 10/28/21 06:20 MCHC 31.9 g/dL (32.0-36.0) L 10/28/21 06:20 RDW Std Deviation 56.5 fL (36.4-46.3) H 10/28/21 06:20 RDW Coeff of Artemio 17.4 % (11.5-14.5) H 10/28/21 06:20 Plt Count 194 K/uL (130-400) 10/28/21 06:20 MPV 9.0 fL (9.4-12.3) L 10/28/21 06:20 Immature Gran % (Auto) 0.4 % 10/27/21 14:43 Neut % (Auto) 59.6 % 10/27/21 14:43 Lymph % (Auto) 33.0 % 10/27/21 14:43 Tompkins % (Auto) 6.2 % 10/27/21 14:43 Eos % (Auto) 0.6 % 10/27/21 14:43 Baso % (Auto) 0.2 % 10/27/21 14:43 Neut # (Auto) 2.79 K/uL (1.4-6.5) 10/27/21 14:43 Lymph # (Auto) 1.55 K/uL (1.2-3.4) 10/27/21 14:43 Tompkins # (Auto) 0.29 K/uL (0.24-0.82) 10/27/21 14:43 Eos # (Auto) 0.03 K/uL (0-0.50) 10/27/21 14:43 Baso # (Auto) 0.01 K/uL (0-0.2) 10/27/21 14:43 Immature Gran # (Auto) 0.02 K/uL (0.00-0.02) 10/27/21 14:43 PT 10.7 Seconds (9.0-12.0) 10/27/21 14:43 INR 1.0 (0.9-1.1) 10/27/21 14:43 APTT 26.7 Seconds (21.0-31.0) 10/27/21 14:43 PTT Ratio 1.0 10/27/21 14:43 Sodium 145 mmol/L (136-145) 10/28/21 06:20 Potassium 3.5 mmol/L (3.5-5.1) 10/28/21 06:20 Chloride 109 mmol/L (98-107) H 10/28/21 06:20 Carbon Dioxide 30 mmol/L (21-32) 10/28/21 06:20 Anion Gap 6 (3-11) 10/28/21 06:20 BUN 14 mg/dl (6-23) 10/28/21 06:20 Creatinine 0.88 mg/dl (0.6-1.2) 10/28/21 06:20 Est Cr Clr Drug Dosing 82.6 ml/min 10/28/21 06:20 Est GFR ( Amer) 76.6 ml/min 10/28/21 06:20 Est GFR (Non-Af Amer) 66.1 ml/min 10/28/21 06:20 BUN/Creatinine Ratio 15.9 (10-20) 10/28/21 06:20 Glucose 91 mg/dl (70-99(Fasting)) 10/28/21 06:20 Calcium 8.3 mg/dl (8.5-10.1) L 10/28/21 06:20 Phosphorus 3.3 mg/dl (2.5-4.9) 10/28/21 06:20 Magnesium 1.9 mg/dl (1.7-2.4) 10/28/21 06:20 Total Bilirubin 0.5 mg/dl (0.2-1.0) 10/27/21 14:43 AST 16 U/L (13-39) 10/27/21 14:43 ALT 13 U/L (7-52) 10/27/21 14:43 Alkaline Phosphatase 111 U/L (34-104) H 10/27/21 14:43 Troponin I High Sens 6.3 pg/ml (0-14) 10/28/21 06:20 B-Natriuretic Peptide 158 pg/ml (0-100) H 10/27/21 14:43 Total Protein 6.8 gm/dl (6.0-8.3) 10/27/21 14:43 Albumin 3.8 gm/dl (3.4-5.0) 10/27/21 14:43 Globulin 3.0 gm/dl (2.5-4.0) 10/27/21 14:43 Albumin/Globulin Ratio 1.3 (0.9-2) 10/27/21 14:43 Lipase 12 U/L (11-82) 10/27/21 14:43 SARS-CoV-2, RNA, NAAT NEGATIVE (NEGATIVE) 10/27/21 15:15 Impressions Chest X-Ray 10/27/21 14:28 XR chest 1V portable HISTORY: 71 years-old Female cp acute atypical chest pain COMPARISON: Chest radiograph 09/04/2021 TECHNIQUE: Portable AP view of the chest FINDINGS: Cardiac silhouette is enlarged. Left subclavian pacer. Pulmonary vascular congestion without overt pulmonary edema. No pneumothorax or large pleural effusion. No airspace consolidation. Bones appear grossly intact. IMPRESSION: Cardiomegaly with pulmonary vascular congestion. ACT 112: Negative or not required by law. The above report was generated using voice recognition software. It may contain grammatical, syntax or spelling errors. Electronically signed by: Tarun Ramirez M.D. 10/27/2021 3:24 PM Chest CTA 10/28/21 14:16 CT angio chest dissec wo/w con CLINICAL HISTORY: r/o dissection, chest pain/back pain TECHNIQUE: Multidetector row helical CT of the chest was performed before and after injection of IV contrast. Coronal and sagittal reformations were obtained. Automated dose lowering techniques and/or adjustment according to patient size were utilized for this exam. Comparison: Comparison is made to CTA chest 10/26/2017 and chest radiograph 1122 FINDINGS: Lungs and pleura: Peripheral interstitial reticular changes are seen, increased from exam of 2018. Heart and pericardium: Heart size is normal. No pericardial effusion. Vessels: Mild atherosclerotic changes in the aorta and coronary arteries. The pulmonary trunk measures 31 mm in diameter. No evidence of acute aortic injury is seen. Mediastinum and agustín: A 9 mm lymph node is seen in the aortopulmonary window. There is a lipid density lesion in the right hilum which is unchanged from 2018 which likely represents a hamartoma. This measures 15 mm x 22 mm. Chest wall and lower neck: Small thyroid nodules are noted which do not require follow-up by ACR criteria. Abdomen: For findings below the diaphragm, please refer to CT of the abdomen dated the same. Bones: Degenerative changes in the thoracic spine. IMPRESSION: 1. No acute abnormality and in particular no evidence of acute aortic injury. 2. Interstitial peripheral thickening compatible with pulmonary fibrosis. ACT 112: Negative or not required by law. Electronically signed by: Lionel Manzo M.D. 10/28/2021 4:06 PM Abdomen/Pelvis CT 10/28/21 14:[address] WITHOUT CONTRAST CT DOSE: 3840.58 mGy.cm HISTORY: Acute epigastric abdominal pain ff up hiatal hernia TECHNIQUE: Multiaxial CT images of the abdomen and pelvis were performed without contrast. A dose lowering technique was utilized adhering to the principles of ALARA. COMPARISON STUDY: CTA chest of same day, CT abdomen and pelvis 09/19/2018 FINDINGS: The heart is enlarged. Partially imaged pacer leads. Subpleural reticulation suggestive of fibrosis with intermixed atelectasis in mild air trapping. Patient body habitus limits the study. No pneumatosis or pneumoperitoneum. The unenhanced spleen, moderately atrophic pancreas and adrenal glands are unremarkable. Cholecystectomy. The liver is within normal limits. Mild nonspecific bilateral perinephric stranding. No definite renal or ureteral calculi identified. No hydronephrosis. Decompressed or bladder with wall thickening. Hysterectomy. No adnexal mass lesion. No abdominal aortic aneurysm or lymphadenopathy. Tiny fat filled hiatal hernia. There is no stomach mucosa extending through the hernia sac. Small duodenal diverticulum. No bowel obstruction or bowel wall thickening. Mild colonic diverticulosis. The appendix is surgically absent. No ascites or mesenteric inflammation. Unremarkable soft tissues. No acute fracture. Postoperative changes of the lumbar spine with posterior interbody santino and screw fusion and discectomy at L4-S1. No evidence of hardware fracture or loosening. IMPRESSION: 1. No acute intra-abdominal or intrapelvic abnormality. 2. No bowel obstruction or bowel wall thickening. 3. Cholecystectomy, appendectomy and hysterectomy. 4. Colonic diverticulosis. 5. Additional findings as above. ACT 112: Negative or not required by law. The above report was generated using voice recognition software. It may contain grammatical, syntax or spelling errors. Electronically signed by: Tarun Ramirez M.D. 10/28/2021 5:[address] 10/29/21 08:22 CT thoracic spine wo con, CT lumbar spine wo con CLINICAL HISTORY: back pain TECHNIQUE: Multidetector row helical CT of the thoracic and lumbar spine was performed without administration of intravenous contrast. Coronal and sagittal reformations were obtained. Automated dose lowering techniques and/or adjustment according to patient size were utilized for this exam. CT DOSE: 2301.64 mGy.cm Comparison: Comparison is made to CT chest abdomen pelvis 10/28/2021 and chest radiograph 09/02/2018 FINDINGS: Redemonstration of anterior wedge deformity of T7 which is unchanged from 2019. Posterior fixation hardware is seen spanning L4-S1. There is grade 1 r etrolisthesis of L2-L3. Degenerative changes are seen in the spine. Surrounding soft tissues are unremarkable. IMPRESSION: No acute fracture is seen. Degenerative changes and postsurgical changes are seen as above. ACT 112: Negative or not required by law. Electronically signed by: Lionel Manzo M.D. 10/29/2021 11:[address] 10/29/21 08:22 CT thoracic spine wo con, CT lumbar spine wo con CLINICAL HISTORY: back pain TECHNIQUE: Multidetector row helical CT of the thoracic and lumbar spine was performed without administration of intravenous contrast. Coronal and sagittal reformations were obtained. Automated dose lowering techniques and/or adjustment according to patient size were utilized for this exam. CT DOSE: 2301.64 mGy.cm Comparison: Comparison is made to CT chest abdomen pelvis 10/28/2021 and chest radiograph 09/02/2018 FINDINGS: Redemonstration of anterior wedge deformity of T7 which is unchanged from 2019. Posterior fixation hardware is seen spanning L4-S1. There is grade 1 retrolisthesis of L2-L3. Degenerative changes are seen in the spine. Surrounding soft tissues are unremarkable. IMPRESSION: No acute fracture is seen. Degenerative changes and postsurgical changes are seen as above. ACT 112: Negative or not required by law. Electronically signed by: Lionel Manzo M.D. 10/29/2021 11:06 AM (1) Anemia Anemia type: unspecified type Qualified Code(s): D64.9 - Anemia, unspecified
[2021-10-30] MEDS: ESCITALOPRAM OXALATE 20 MG TAB PO SCH (21:25)
[2021-10-30] MEDS: ATORVASTATIN 40 MG TAB PO SCH (21:26)
[2021-10-30] MEDS: LIDOCAINE 5% 1 PATCH TD SCH (21:27)
[2021-10-31] MEDS: LEVOTHYROXINE SODIUM 50 MCG TABLET PO SCH (06:09)
[2021-10-31 09:19] LABS: BUN Creatinine Ratio 25.9 (10-20); Calcium 8.9 mg/dl (8.5-10.1); Creatinine Clr Calc Pharmacy 89.9 ml/min; Est GFR (African American) 84.7 ml/min; Est GFR (Non-African American) 73.1 ml/min; Potassium 3.4 mmol/L (3.5-5.1)
[2021-10-31] MEDS: amLODIPine BESYLATE 5 MG TAB PO SCH (09:34)
[2021-10-31] MEDS: APIXABAN 5 MG TABLET PO SCH ×2 (09:35→20:38)
[2021-10-31] MEDS: AMIODARONE 200 MG TAB PO SCH (09:35)
[2021-10-31] MEDS: ASPIRIN 81 MG ECTAB PO SCH (09:35)
[2021-10-31] MEDS: CYANOCOBALAMIN (B-12) 500 MCG TABLET PO SCH (09:36)
[2021-10-31] MEDS: LOSARTAN POTASSIUM 50 MG TAB PO SCH (09:36)
[2021-10-31] MEDS: FAMOTIDINE 20 MG TAB PO SCH ×2 (09:36→20:37)
[2021-10-31] MEDS: GABAPENTIN 100 MG CAP PO SCH ×2 (09:36→20:37)
[2021-10-31] MEDS: PANTOprazole 40 MG TAB PO SCH ×2 (09:37→20:37)
[2021-10-31] MEDS: METOPROLOL SUCC 25MG EXT REL TAB PO SCH (09:37)
[2021-10-31] MEDS: FUROSEMIDE 20 MG TAB PO SCH (09:41)
[2021-10-31] MEDS: MoRPHine SULFATE 2 MG/ML CARP IV PRN ×3 (09:44→20:39)
[2021-10-31] MEDS ORDERED: POTASSIUM CHLORIDE CRTAB 20 MEQ TABCR PO STA (13:59)
--- NOTE | 2021-10-31 16:44 | Discharge Summary ---
Date of Service November 01, 2021 Admission HPI Per Admitting Provider Ms. Banerjee is a 71 year old who presented to the [facility] after having three days worth of chest pain and discomfort in her anterior chest and shoulder blades. Thursday night the pain started between her shoulder blades and then Thursday her actual chest pain started. She reports the pain to be 9/10. Additionally she reports generally feeling week. She had a recent admission in August 2021 for melena. Additional PMH includes: paroxysmal atrial fibrillation, anemia, depression, hypothyroidism, h/o cardiac pacemaker. Currently, she is sitting upright in her hospital bed and states she reports her pain to be a 6/10. She states that exertion worsens her discomfort and has developed SOB. She reports also feeling lightheaded. Pt denies sore throat, cough, Admission Exam Per Admitting Provider GENERAL: Alert and oriented x3. NAD, on RA. Class III obesity HEENT: No pallor, no icterus. Pupils equal, round and reactive to light. Oral mucosa moist. NECK: No JVD, no neck masses. HEART: S1 and S2 heard. Regular rate and rhythm. No murmur, no gallop. RESPIRATORY SYSTEM: Normal AP diameter. No accessory muscle use. No wheezing, no crackles. ABDOMEN: Soft, bowel sounds present, nontender, no distention. CENTRAL NERVOUS SYSTEM: No facial droop. Speech is clear. Obeys simple commands. Moves extremities. EXTREMITIES: No edema, no erythema seen. Principal Diagnosis (1) Chest pain: (2) H/O cardiac pacemaker: (3) Atrial fibrillation, controlled: (4) HTN (hypertension): (5) Hypothyroidism: (6) Depression: (7) Paroxysmal A-fib: (8) Anemia: (9) JALNE (obstructive sleep apnea): Discharge Exam General- oriented x 3, not in distress, speaks in sentences with no effort or accessory muscle use Eyes- anicteric Neck- no JVD Lungs- clear BS bilaterally, no rales/wheezes Heart- normal rate, regular rhythm; no murmurs Abdomen- normal bowel sounds, nondistended, soft, nontender Extremities- mild pretibial edema, no calf tenderness Neuro- alert, oriented x 3; no gross focal neurologic deficits Skin- warm & dry Discharge Data Allergies Allergy/AdvReac Type Severity Reaction Status Date / Time celecoxib Allergy Intermediate Hives Verified 10/27/21 16:54 latex Allergy Intermediate RASH Verified 10/27/21 16:54 lisinopril Allergy Intermediate Cough Verified 10/27/21 16:54 Consultations 10/27/21 16:11 Consult Cardiology Routine 10/27/21 16:15 ED Decision to Admit Stat 10/29/21 11:43 Consult Orthopedic Surgery Routine Ordered Studies 10/28/21 14:16 CT angio chest dissec wo/w con Stat 10/28/21 14:37 CT Abd and Pelvis [CT abd pelvis wo con] Routine 10/29/21 08:22 CT lumbar spine wo con Urgent CT thoracic spine wo con Urgent Hospital Course (1) Chest pain: (2) H/O cardiac pacemaker: (3) Atrial fibrillation, controlled: (4) HTN (hypertension): (5) Hypothyroidism: (6) Depression: (7) Paroxysmal A-fib: (8) Anemia: (9) JALEN (obstructive sleep apnea): Plan Patient is a 71 year old who presented to the [facility] after having three days worth of chest pain and discomfort in her anterior chest and shoulder blades. On presentation to the ED, EKG showed atrial paced rhythm. High-sensitivity troponin was -3 times. ACS was ruled out. Patient was evaluated by cardiology and was started on oral Lasix 20 mg once daily. During the hospitalization, patient complained of back pain for which she underwent CT thoracolumbar spine which did not reveal any acute findings. Spine orthopedic was consulted; recommended conservative management and follow-up as outpatient. Patient was started on gabapentin 100 mg twice daily with goal to titrate the dose as outpatient. On discharge, patient was instructed to take Lasix 3 times in a week. Pepcid was discontinued as patient was also on PPI. Patient was evaluated by PT OT during the hospitalization and was recommended to return home. Her other medication including amiodarone, Eliquis, amlodipine, losartan and metoprolol were resumed. Patient's condition was stable at discharge. Total Time Total Time Spent Total Time Spent (In Minutes): 25 Total Time Includes: Examination of the Patient, Discharge Planning, Medication Reconciliation, Communication With Other Providers and Other Discharge Plan Discharge Items Patient Disposition: Home - Self-Care Reason For Visit: CHEST DISCOMFORT Discharge Diagnosis: 1) Chest pain, ACS ruled out 2) Back pain 2/2 Osteoarthritis 3) CHF 4) Hx of Atrial fibrillation Condition on Discharge: Good Activity: Resume your previous activity Non-emergency contact: Primary Care Provider Call non-emergency contact if: you have any medication questions and your symptoms worsen Follow-up/Referrals: Irish Richard DO [Primary Care Provider] - (Date & Time 11/07/2021 11:10 AM Provider Irish Richard DO Department [facility] ) Diet: Heart Healthy Addtl Attending Provider Instructions: Please take furosemide ( Lasix) 20 mg on Thursday, Thursday and Thursday in the morning. You were started on gabapentin 100 mg twice daily for back pain. Please follow- up with her primary care doctor to try to titrate the medication for symptom control. Please follow-up with Dr. Tanner for the back pain. Please follow-up with her primary care doctor. Pending Studies at Discharge: No Stand-Alone Forms: [employer], Smoking Cessation Medications and DC Order Prescriptions: New acetaminophen 325 mg Tablet 650 mg PO Q4H PRN (Reason: pain) Qty: 30 0RF gabapentin 100 mg Capsule 100 mg PO BID Qty: 60 0RF Continued aspirin [Vonda Low Dose Aspirin] 81 mg Tablet,Delayed Release (Dr/Ec) 81 mg PO QAM acetaminophen 325 mg Tablet 2 tab PO Q6H PRN (Reason: Pain) cholecalciferol (vitamin D3) 1,000 unit Capsule 1,000 units PO QAM cyanocobalamin (vitamin B-12) 1,000 mcg Tablet, Sublingual 1,000 mcg SUBLINGUAL QAM losartan 100 mg Tablet 100 mg PO QAM amlodipine 2.5 mg Tablet 2.5 mg PO QAM atorvastatin [Lipitor] 40 mg Tablet 40 mg PO HS amiodarone 200 mg tablet 200 mg PO QAM metoprolol succinate 25 mg tablet extended release 24 hr 25 mg PO QAM escitalopram oxalate 20 mg tablet 20 mg PO QPM Eliquis 5 mg Tablet 5 mg PO BID Qty: 60 0RF sennosides-docusate sodium [Senokot-S] 8.6-50 mg Tablet 1 tab PO QAM PRN (Reason: constipation) Qty: 30 0RF omeprazole 20 mg capsule,delayed release(DR/EC) 40 mg PO AMHS Qty: 30 0RF levothyroxine 50 mcg tablet 50 mcg PO DAILYBB fluticasone propionate 50 mcg/actuation [place],Suspension 2 spray INTRANASAL DAILY PRN (Reason: Congestion) furosemide [Lasix] 20 mg tablet 20 mg PO DAILY PRN (Reason: edema) Qty: 10 0RF Discontinued famotidine 20 mg tablet 20 mg PO BID Discharge Orders: Discharge Order (Routine); Ordered 11/01/21 Ordered By: Theodore Stephen Admission Data Admit Date/Time: 10/28/21 14:37 Attending Provider: Theodore Stephen Admit Provider: Philipp Arrington Primary Care Provider: Irish Richard Other Providers: Ronaldo Borges ; Philipp Arrington ; Gee Tanner Other Interventions: Discharge Summary Assessment (RN) Last Done: 11/01/21 10:44
--- NOTE | 2021-10-31 17:30 | Hospitalist Progress Note ---
Date of Service October 31, 2021 Assessment & Plan (1) Chest pain: (2) H/O cardiac pacemaker: (3) Atrial fibrillation, controlled: (4) HTN (hypertension): (5) Hypothyroidism: (6) Depression: (7) Paroxysmal A-fib: (8) Anemia: (9) JALEN (obstructive sleep apnea): Plan Ms. Banerjee is a 71 year old who presented to the [facility] after having three days worth of chest pain and discomfort in her anterior chest and shoulder blades. Chest pain, Acute Coronary Syndrome rule out Three days chest pain and discomfort in her anterior chest and shoulder blades. EKG shows atrial paced rhythm High sensitive troponin -ve 3 times EchoEF of 60 to 65%; moderate concentric LVH Aortic dissection ruled out CT angiogram negative CT abdomen pelvis: Tiny hiatal hernia Plan; Continue her home medication; amiodarone and Eliquis. -Continue on metoprolol succinate and losartan. -Lasix started at 20 mg once daily. Will discharge on 3 times a week. Back Pain 2/2 Osteoarthritis -CT thoracic lumbar spine done which did not show any acute fracture; degenerative and postsurgical changes seen. -Dr. Tanner consulted; recommend conservative management. -Plan to discharge on gabapentin 100 mg twice daily. H/O pacemaker: atrial pacemaker due to bradycardia in 2018. Atrial fibrillation; controlled: was on Warfarin and switched to Eliquis in 08/07 Takes Amiodarone and ASA HTN: controlled in ED. Continue Amplodipine, losartan, and Metoprolol JALEN: Wears CPAP at night Dyslipidemia: Continue Lipitor Hypothyroidism: Stable; Continue Levothyroxine Depression: stable; takes Lexapro Anemia: chronic; baseline. Hgb 11.3 Disposition: Code: Full PCP: Dr. Richard VTE Prophylaxis: Lives at home. Would like to return back home. Unable to discharge today due to lack of transportation. Plan to discharge tomorrow with son in am. Admission and Anticipated Discharge Date Admission Date: October 28, 2021 Subjective Seen and examined at bedside. Comfortable; not in any distress. Tele- Atrial paced rhythm Review of Systems Review of Systems: All systems reviewed & are unremarkable except as noted in Subjective Physical Exam Physical Exam: General- oriented x 3, not in distress, speaks in sentences with no effort or accessory muscle use Eyes- anicteric Neck- no JVD Lungs- clear BS bilaterally, no rales/wheezes Heart- normal rate, regular rhythm; no murmurs Abdomen- normal bowel sounds, nondistended, soft, nontender Extremities- mild pretibial edema, no calf tenderness Neuro- alert, oriented x 3; no gross focal neurologic deficits Skin- warm & dry Results & Data Results & Data ([facility]) Vital Signs (Past 12 Hours) Vital Signs Temp Pulse Pulse Resp BP Pulse Ox O2 Del Method 10/31/21 11:41 36.5 C 60 18 122/69 91 Room Air 10/31/21 10:07 60 10/31/21 07:16 36.5 C 72 18 147/90 H 94 Room Air (1) Anemia Anemia type: unspecified type Qualified Code(s): D64.9 - Anemia, unspecified
[2021-10-31] MEDS: LIDOCAINE 5% 1 PATCH TD SCH (20:36)
[2021-10-31] MEDS: ESCITALOPRAM OXALATE 20 MG TAB PO SCH (20:38)
[2021-10-31] MEDS: ATORVASTATIN 40 MG TAB PO SCH (20:38)
[2021-11-01] MEDS: LEVOTHYROXINE SODIUM 50 MCG TABLET PO SCH (06:08)
[2021-11-01] MEDS: AMIODARONE 200 MG TAB PO SCH (09:10)
[2021-11-01] MEDS: amLODIPine BESYLATE 5 MG TAB PO SCH (09:10)
[2021-11-01] MEDS: ASPIRIN 81 MG ECTAB PO SCH (09:14)
[2021-11-01] MEDS: APIXABAN 5 MG TABLET PO SCH (09:14)
[2021-11-01] MEDS: CYANOCOBALAMIN (B-12) 500 MCG TABLET PO SCH (09:15)
[2021-11-01] MEDS: FAMOTIDINE 20 MG TAB PO SCH (09:15)
[2021-11-01] MEDS: GABAPENTIN 100 MG CAP PO SCH (09:17)
[2021-11-01] MEDS: PANTOprazole 40 MG TAB PO SCH (09:18)
[2021-11-01] MEDS: LOSARTAN POTASSIUM 50 MG TAB PO SCH (09:18)
[2021-11-01] MEDS: METOPROLOL SUCC 25MG EXT REL TAB PO SCH (09:18)
[2021-11-01] MEDS: FUROSEMIDE 20 MG TAB PO SCH (10:08)
[2021-11-01] MEDS: ACETAMINOPHEN 325 MG TAB PO PRN (10:34)
== END 2021-11-01 11:30 | disposition home or self-care (01) | DRG 313 ==
LOC: EDINP 14:22 → ED 14:22 → SUATTDRO 15:56 → 2S 21:49 → SUATTDRO 10-28 14:37 → 2N 10-28 19:41

== ENCOUNTER 2022-03-29 13:06 | Inpatient (IN) ==
--- NOTE | 2022-03-29 13:54 | Emergency Department Note ---
Impression & Plan Dizziness ED Provider Note ED Provider Note NAME: AJN ADAM AGE:71 SEX: Female : 1950 ARRIVES VIA: private vehicle INFORMANT: Patient ED PROVIDER(s): Elida Christian DO CHIEF COMPLAINT: Dizziness, vision changes HPI: This is a 71-year-old female presents emergency room due to concern for dizziness and vision changes. Patient states the last 2 mornings she has had brief episodes when first waking up and sitting up of dizziness and blurred vision. She states she would suddenly edge of the bed for approximately 5 minutes and the symptoms would resolve when she would go about her day. She states this morning when she got up and got out of bed the same thing happened however it was much more severe. She states the symptoms were not improving despite trying to go about her normal day. She states she then felt a "wave" come over her of weakness, double vision, numbness and tingling. She states she has family to bring her to the emergency room after this. Patient states since that time her vision has improved but is still not back to normal. She states her last eye exam was in 2012. She denies any history of eye problems otherwise. She denies any recent illness, fevers or chills. Patient denies any change in her medications. No hx of migraines. PAST MEDICAL HISTORY:See Below PAST SURGICAL HISTORY:See Below FAMILY HISTORY:See Below SOCIAL HISTORY:See Below HOME MEDICATIONS:See Below ALLERGIES:See Below VITALS:See Below PHYSICAL EXAMINATION: GENERAL: alert, well appearing, well nourished, no distress, non-toxic, BMI>55 EYE EXAM: normal conjunctiva, PERRL and EOM's grossly intact, funduscopic exam performed by myself at bedside without any obvious papilledema, normal-appearing blood vessels OROPHARYNX: no exudate, no erythema, lips, buccal mucosa, and tongue normal and mucous membranes are moist NECK: supple, no nuchal rigidity, no adenopathy, non-tender LUNGS: Clear to auscultation. Normal chest wall mechanics, no w/r/r HEART: no murmurs, S1 normal and S2 normal ABDOMEN: abdomen soft, non-tender, normo-active bowel sounds, no masses, no rebound or guarding. BACK: Back is symmetrical on inspection and there is no deformity, no midline tenderness, no CVA tenderness. SKIN: no rashes, petechiae, orbruising UPPER EXTREMITIES: upper extremities are grossly normal. FROM, nml pulses b/l. LOWER EXTREMITIES: No pitting edema. FROM, nml pulses b/l. NEURO EXAM: Normal sensorium, cranial nerves II-XII grossly intact, normal speech, no facial droop,nogross weakness of arms, no gross weakness of legs. Gross sensation intact. No ataxia. Vital Signs: reviewed and remarkable Differential Diagnosis: BPPV, ICH, CVA, dissection, central venous sinus thrombus, occult infection, electrolyte abnormality, SHERYL, viral hepatitis, giant cell arteritis, as well as others were considered MEDICAL DECISION MAKING: This is a 71-year-old female presents emergency department due to concern for dizziness and blurred vision. Prior mild episodes in preceding days however this morning has been persistent and more severe. No recent trauma, no recent infection. Patient with significant past medical history. Patient afebrile and hemodynamically stable on arrival. Labs drawn and sent, IV established, patient sent for CT/CTA. Patient started on gentle IV fluid rehydration, she was given Tylenol for involving headache, and given meclizine for the dizziness. Patient had no improvement of symptoms. Given the fact that she lives alone and was concern for fall risk, she felt she needed additional inpatient management which seems reasonable at this time as we cannot safely control her symptoms enough for her to be discharged home alone. No evidence of obvious infection. MRI not available at this time given patient's pacemaker she would need additional resources for this to be performed. Case discussed with hospitalist for additional evaluation and management. At this time I do not suspect acute ocular emergency. No evidence of acute [employer] pathology on CT. No evidence of hypertensive urgency. Consultation(s): [] ER Treatment Provided: See below 0302: Pt updated on results. States still having symptoms. 1705: Patient states still having symptoms despite medications and feels unsafe going home as she lives alone. We discussed options for disposition including hospitalist evaluation versus discharge and close follow-up. Patient would like to stay in the hospital. 1735: Discussed with Dr. Arrington. Diagnostics Interpreted By Me: -ECG: Paced rhythm at 83, normal QRS and QTc, normal axis, no acute ST/T wave changes -Cardiac Monitoring: An order was placed for continuous cardiac monitoring. The monitor shows a rate of 66 with paced rhythm. -Laboratory studies: As stated above and show below. -Imaging studies: [] Triage Nursing Note Reviewed Prior/Outside Records Reviewed - prior cardiology note Procedures: [] Critical Care: [] Past Med/Surg History Medical History Abdominal pain Atrial fibrillation Paroxysmal atrial fibrillation, on rhythm control strategy with dofetilide, Coumadin (entered by Dr Borges 10/22/17) Atypical chest pain CAD (coronary artery disease) Hx cardiac cath 2015: coronary arteries have diffuse minor irregularities Chest pain Depression GERD (gastroesophageal reflux disease) GI bleed H/O cholecystitis H/O cholecystitis HLD (hyperlipidemia) HTN (hypertension) Hx pulmonary embolism 2014 Melanotic stools Melena NSTEMI (non-ST elevated myocardial infarction) Obesity JALEN (obstructive sleep apnea) JALEN (obstructive sleep apnea) Paroxysmal atrial fibrillation Precordial chest pain Stress-induced cardiomyopathy Takotsubo cardiomyopathy Surgical History H/O carpal tunnel repair H/O carpal tunnel repair H/O wisdom tooth extraction H/O: hysterectomy H/O: hysterectomy Hx of cardiac catheterization Hx of cardiac catheterization Angiographically normal coronary arteries, 10/22/17, [facility]. History, echocardiogram, cardiac catheterization data consistent with atypical presentation of stress-induced cardiomyopathy with normal apical wall motion, and hypokinesis to akinesis of the basal left ventricular myocardial segments Family History Father , in 60's of myocardial infarction Myocardial infarction, Onset Age: 62 Brother Myocardial infarction, Onset Age: 68 Other Diabetes Hypertension Social History Smoking Status: Never smoker Second Hand Exposure: No; Hx Alcohol Use: No Hx Substance Use: No Preferred Language: Cape Verdean Communication Ability: Effective Visual Impairment: Limited Hearing 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: Normal 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 Beliefs That Will Affect Care: None marital status: Single Current Living Situation: Alone Current Living Situation Comment: appartment Feels Safe at Home: Yes Safety Concerns: Feels Safe At This Time Assistive Devices: Glasses and Walker Allergies Allergies Allergy/AdvReac Type Severity Reaction Status Date / Time celecoxib Allergy Intermediate Hives Verified 03/29/22 16:17 latex Allergy Intermediate RASH Verified 03/29/22 16:17 lisinopril AdvReac Intermediate Cough Verified 03/29/22 16:17 Home Meds Home Medications Medication Instructions Recorded Confirmed acetaminophen 325 mg tablet 2 tab PO Q6H PRN Pain 10/22/17 03/29/22 aspirin 81 mg tablet,delayed 81 mg PO QAM 10/22/17 03/29/22 release (Vonda Low Dose Aspirin) cholecalciferol (vitamin D3) 25 1,000 units PO QAM 10/22/17 03/29/22 mcg (1,000 unit) capsule cyanocobalamin (vitamin B-12) 1,000 mcg sublingual QAM 10/22/17 03/29/22 1,000 mcg sublingual tablet losartan 100 mg tablet 100 mg PO QAM 10/22/17 03/29/22 amlodipine 2.5 mg tablet 2.5 mg PO QAM 07/02/18 03/29/22 amiodarone 200 mg tablet 200 mg PO QAM 12/02/19 03/29/22 atorvastatin 40 mg tablet (Lipitor) 40 mg PO HS 12/02/19 03/29/22 metoprolol succinate 25 mg 25 mg PO QAM 12/02/19 03/29/22 tablet,extended release 24 hr escitalopram oxalate 20 mg tablet 20 mg PO QPM 07/12/20 03/29/22 fluticasone propionate 50 2 spray intranasal DAILY PRN 05/19/21 03/29/22 mcg/actuation nasal Congestion spray,suspension levothyroxine 50 mcg tablet 50 mcg PO DAILYBB 05/19/21 03/29/22 Previous Rx's Medication Instructions Recorded furosemide 20 mg tablet (Lasix) 20 mg PO DAILY PRN edema #10 tabs 05/24/21 apixaban 5 mg tablet (Eliquis) 5 mg PO BID #60 tabs 09/10/21 omeprazole 20 mg capsule,delayed 40 mg PO AMHS #30 caps 09/10/21 release sennosides 8.6 mg-docusate sodium 1 tab PO QAM PRN constipation #30 09/10/21 50 mg tablet (Senokot-S) tabs acetaminophen 325 mg tablet 650 mg PO Q4H PRN pain #30 tabs 10/31/21 gabapentin 100 mg capsule 100 mg PO BID #60 caps 10/31/21 oxycodone 5 mg tablet 5 mg PO Q6H PRN pain #10 tabs 02/22/22 Results & Data (ED) Vital Signs Vital Signs - 24 hr 03/29/22 17:58 Pulse Rate [Right Finger] 62 Respiratory Rate 18 Blood Pressure [Right Arm] 137/66 Blood Pressure Mean [Right Arm] 89 Pulse Oximetry 98 Oxygen Delivery Method Room Air Laboratory Data 03/29/22 13:55 03/29/22 13:55 Lab Results 03/29/22 03/29/22 03/29/22 Range/Units 13:55 13:55 13:55 WBC 4.94 (4.8-10.8) K/ul RBC 4.48 (4.20-5.40) M/uL Hgb 14.2 (12.0-16.0) g/dl Hct 41.6 (37.0-47.0) % MCV 92.9 (80.0-100.0) fL MCH 31.7 (25.0-34.0) pg MCHC 34.1 (32.0-36.0) g/dL RDW Std Deviation 46.5 H (36.4-46.3) fL RDW Coeff of Artemio 13.6 (11.5-14.5) % Plt Count 227 (130-400) K/uL MPV 10.5 (9.4-12.4) fL Immature Gran % (Auto) 0.4 % Neut % (Auto) 56.9 % Lymph % (Auto) 35.4 % Gillespie % (Auto) 6.1 % Eos % (Auto) 0.8 % Baso % (Auto) 0.4 % Neut # (Auto) 2.81 (1.40-6.50) K/uL Lymph # (Auto) 1.75 (1.2-3.4) K/uL Gillespie # (Auto) 0.30 (0.11-0.59) K/uL Eos # (Auto) 0.04 (0-0.50) K/uL Baso # (Auto) 0.02 (0-0.2) K/uL Immature Gran # (Auto) 0.02 (0.01-0.20) K/uL ESR 49 H (0-30) mm/hr Sodium 142 (136-145) mmol/L Potassium 4.0 (3.5-5.1) mmol/L Chloride 107 (98-107) mmol/L Carbon Dioxide 27 (21-32) mmol/L Anion Gap 8 (3-11) BUN 18 (6-23) mg/dl Creatinine 0.88 (0.6-1.2) mg/dl Est Cr Clr Drug Dosing 81.8 ml/min Est GFR ( Amer) 76.6 ml/min Est GFR (Non-Af Amer) 66.1 ml/min BUN/Creatinine Ratio 20.5 H (10-20) Glucose 103 H (70-99(Fasting)) mg/dl Calcium 8.9 (8.5-10.1) mg/dl Magnesium 1.9 (1.7-2.4) mg/dl Total Bilirubin 0.5 (0.2-1.0) mg/dl AST 20 (13-39) U/L ALT 18 (7-52) U/L Alkaline Phosphatase 108 H (34-104) U/L Troponin I High Sens 5.9 (0-14) pg/ml Total Protein 7.3 (6.0-8.3) gm/dl Albumin 4.0 (3.4-5.0) gm/dl Globulin 3.3 (2.5-4.0) gm/dl Albumin/Globulin Ratio 1.2 (0.9-2) TSH (0.300-4.500) uIu/ml SARS-CoV-2 (PCR) (Negative) Influenza Type A (PCR) (Neg) Influenza Type B (PCR) (Neg) RSV (RT-PCR) (Neg) 03/29/22 03/29/22 Range/Units 13:55 17:55 WBC (4.8-10.8) K/ul RBC (4.20-5.40) M/uL Hgb (12.0-16.0) g/dl Hct (37.0-47.0) % MCV (80.0-100.0) fL MCH (25.0-34.0) pg MCHC (32.0-36.0) g/dL RDW Std Deviation (36.4-46.3) fL RDW Coeff of Artemio (11.5-14.5) % Plt Count (130-400) K/uL MPV (9.4-12.4) fL Immature Gran % (Auto) % Neut % (Auto) % Lymph % (Auto) % Gillespie % (Auto) % Eos % (Auto) % Baso % (Auto) % Neut # (Auto) (1.40-6.50) K/uL Lymph # (Auto) (1.2-3.4) K/uL Gillespie # (Auto) (0.11-0.59) K/uL Eos # (Auto) (0-0.50) K/uL Baso # (Auto) (0-0.2) K/uL Immature Gran # (Auto) (0.01-0.20) K/uL ESR (0-30) mm/hr Sodium (136-145) mmol/L Potassium (3.5-5.1) mmol/L Chloride (98-107) mmol/L Carbon Dioxide (21-32) mmol/L Anion Gap (3-11) BUN (6-23) mg/dl Creatinine (0.6-1.2) mg/dl Est Cr Clr Drug Dosing ml/min Est GFR ( Amer) ml/min Est GFR (Non-Af Amer) ml/min BUN/Creatinine Ratio (10-20) Glucose (70-99(Fasting)) mg/dl Calcium (8.5-10.1) mg/dl Magnesium (1.7-2.4) mg/dl Total Bilirubin (0.2-1.0) mg/dl AST (13-39) U/L ALT (7-52) U/L Alkaline Phosphatase (34-104) U/L Troponin I High Sens (0-14) pg/ml Total Protein (6.0-8.3) gm/dl Albumin (3.4-5.0) gm/dl Globulin (2.5-4.0) gm/dl Albumin/Globulin Ratio (0.9-2) TSH 4.157 (0.300-4.500) uIu/ml SARS-CoV-2 (PCR) NEGATIVE (Negative) Influenza Type A (PCR) Negative (Neg) Influenza Type B (PCR) Negative (Neg) RSV (RT-PCR) Negative (Neg) Administered Medications Acetaminophen (Acetaminophen 325 Mg Tab) 650 mg PO Q4H PRN PRN Reason: Mild Pain or Fever Stop: 04/28/22 18:07 Last Admin: 03/30/22 14:16 Dose: 650 mg Documented By: Admin: 03/30/22 06:36 Dose: 650 mg Documented By: Amiodarone HCl (Amiodarone 200 Mg Tab) 200 mg PO QAM SAMI Stop: 04/29/22 08:59 Last Admin: 03/30/22 08:16 Dose: 200 mg Documented By: ANISHA Apixaban (Apixaban 5 Mg Tablet) 5 mg PO BID SAMI Stop: 04/28/22 20:59 Last Admin: 03/30/22 08:14 Dose: 5 mg Documented By: Admin: 03/29/22 21:38 Dose: 5 mg Documented By: Aspirin (Aspirin 81 Mg Ectab) 81 mg PO QAM SAMI Stop: 04/29/22 08:59 Last Admin: 03/30/22 08:16 Dose: 81 mg Documented By: ANISHA Atorvastatin Calcium (Atorvastatin 40 Mg Tab) 40 mg PO HS SAMI Stop: 04/28/22 20:59 Last Admin: 03/29/22 21:38 Dose: 40 mg Documented By: Cyanocobalamin (Cyanocobalamin (B-12) 500 Mcg Tablet) 1,000 mcg PO QAM SAMI Stop: 04/29/22 08:59 Last Admin: 03/30/22 08:16 Dose: 1,000 mcg Documented By: ANISHA Escitalopram Oxalate (Escitalopram Oxalate 20 Mg Tab) 20 mg PO QPM SAMI Stop: 04/28/22 20:59 Last Admin: 03/29/22 21:38 Dose: 20 mg Documented By: Gabapentin (Gabapentin 100 Mg Cap) 100 mg PO BID SAMI Stop: 04/28/22 20:59 Last Admin: 03/30/22 08:15 Dose: 100 mg Documented By: Admin: 03/29/22 21:37 Dose: 100 mg Documented By: Sodium Chloride (Nss 1000ml) 1,000 mls @ 65 mls/hr IV .[id number] SAMI Stop: 04/28/22 13:59 Last Admin: 03/30/22 12:17 Dose: 75 mls/hr Documented By: Infusion: 03/30/22 12:17 Dose: 0 mls/hr Documented By: Admin: 03/29/22 22:56 Dose: 75 mls/hr Documented By: Infusion: 03/29/22 22:40 Dose: 75 mls/hr Documented By: Infusion: 03/29/22 21:33 Dose: 75 mls/hr Documented By: Admin: 03/29/22 14:13 Dose: 125 mls/hr Documented By: NAT Levothyroxine Sodium (Levothyroxine Sodium 50 Mcg Tablet) [facility] Stop: 04/29/22 06:29 Last Admin: 03/30/22 05:47 Dose: 50 mcg Documented By: CHAPINCITO Losartan Potassium (Losartan Potassium 50 Mg Tab) 100 mg PO [facility] Stop: 04/29/22 08:59 Last Admin: 03/30/22 08:15 Dose: 100 mg Documented By: ANISHA Metoprolol Succinate (Metoprolol Succ 25mg Ext Rel Tab) 25 mg PO [facility] Stop: 04/29/22 08:59 Last Admin: 03/30/22 08:15 Dose: 25 mg Documented By: ANISHA Ondansetron HCl (Ondansetron Inj 2 Mg/Ml 2 Ml Vial) 4 mg IV Q6H PRN PRN Reason: Nausea Stop: 04/28/22 18:07 Last Admin: 03/30/22 10:57 Dose: 4 mg Documented By: ANISHA Pantoprazole Sodium (Pantoprazole 40 Mg Tab) 40 mg PO [facility]; Protocol Stop: 04/28/22 20:59 Last Admin: 03/30/22 08:15 Dose: 40 mg Documented By: Admin: 03/29/22 21:37 Dose: 40 mg Documented By: Discontinued Medications Acetaminophen (Acetaminophen 500 Mg Tab) Confirm Administered Dose 1,000 mg .ROUTE .STK-MED ONE Stop: 03/29/22 16:18 Last Admin: 03/29/22 16:20 Dose: 1,000 mg Documented By: GUILHERME Diphenhydramine HCl (Diphenhydramine 50 Mg/Ml Vial) 12.5 mg IV NOW STA Stop: 03/29/22 17:11 Last Admin: 03/29/22 17:53 Dose: 12.5 mg Documented By: GUILHERME Prochlorperazine (Compazine) 1 mls @ 1 mls/min IV ONE ONE Stop: 03/29/22 17:11 Last Admin: 03/29/22 17:54 Dose: 1 mls/min Documented By: GUILHERME Ioversol (Optiray 320 500ml) 116 ml IV ONCE ONE Stop: 03/29/22 15:10 Last Admin: 03/29/22 15:09 Dose: 116 ml Documented By: NICOLE Meclizine HCl (Meclizine Hcl 25 Mg Tab) 25 mg PO NOW STA Stop: 03/29/22 16:21 Last Admin: 03/29/22 16:22 Dose: 25 mg Documented By: GUILHERME Meclizine HCl (Meclizine Hcl 25 Mg Tab) Confirm Administered Dose 25 mg PO .STK- MED ONE Stop: 03/29/22 16:22 Last Admin: 03/29/22 16:22 Dose: Not Given Documented By: GUILHERME Potassium Chloride (Potassium Chloride Crtab 20 Meq Tabcr) 20 meq PO NOW STA Stop: 03/30/22 08:54 Last Admin: 03/30/22 09:16 Dose: 20 meq Documented By: ANISHA Imaging Data Radiologist's Impression: Head CTA 03/29/22 13:46 CTA ANGIOGRAPHY OF THE HEAD CLINICAL HISTORY: dizzy, vision change COMPARISON STUDY: Head CT September 08, 2021. TECHNIQUE: Helical axial images of the head were obtained following uneventful intravenous administration of 116 cc of Optiray. Sagittal and coronal reconstructions were viewed as well as maximal intensity projections on an independent 3-D workstation. Automated exposure control was utilized for the study. A dose lowering technique was utilized adhering to the principles of ALARA. FINDINGS: The bilateral M1, M2, A1 and A2 segments are patent. There is mild plaque within the bilateral cavernous carotids without stenosis. There is no dissection within the intracranial vessels. There is persistence of the bilateral posterior cerebral arteries. No central vessel occlusion within the posterior circulation is identified. Major dural sinuses are patent. Ventricular system is normal. Basal cisterns are patent. There are no extra-axial collections. No acute intracranial hemorrhage is identified on the noncontrast head CT which will be reported separately. Trace fluid within the left mastoid air cells is unchanged from earlier exams. IMPRESSION: No central vessel occlusion. No intracranial aneurysm. ACT 112: Negative or not required by law. Electronically signed by: Nav Jurado M.D. 03/29/2022 3:37 PM Neck CTA 03/29/22 13:46 CT ANGIOGRAPHY OF THE NECK WITH CONTRAST CLINICAL HISTORY: dizzy, vision change COMPARISON STUDY: No previous studies for comparison. Technique: CT angiography of the carotid and vertebral arteries was obtained using Optiray and 3D reconstruction on an independent workstation. NASCET criteria was utilized. Automated exposure control was utilized for the study. A dose lowering technique was utilized adhering to the principles of ALARA. CT DOSE: 1361.35 mGy.cm Findings: This exam is mildly compromised by quantum mottle artifact. The bilateral common carotid, cervical internal carotid and vertebral arteries are patent. There is no stenosis or dissection within these vessels. There is minimal plaque within the bilateral carotid bifurcations without stenosis. There is no cervical lymphadenopathy. No cervical spine fracture is present. Trace fluid within the left mastoid air cells is unchanged from earlier head CT. IMPRESSION: No stenosis or dissection within the bilateral common carotid, ce rvical internal carotid or vertebral arteries. ACT 112: Negative or not required by law. Electronically signed by: Nav Jurado M.D. 03/29/2022 3:[address] 03/29/22 13:47 CT OF THE HEAD WITHOUT CONTRAST CLINICAL HISTORY: dizziness, vision change COMPARISON STUDY: Head CT September 08, 2021. TECHNIQUE: Helical axial images of the head were obtained without IV contrast. Automated exposure control was utilized for the study. A dose lowering technique was utilized adhering to the principles of ALARA. FINDINGS: No acute intracranial hemorrhage, midline shift or mass effect is present. The ventricular system is unremarkable. The basal cisterns are patent. No extra-axial collections are present. There are no findings to suggest acute dural sinus thrombosis or acute territorial infarct. There are no significant ca lvarial abnormalities. Trace fluid within left mastoid air cells is unchanged. There is minimal sinus mucosal thickening. IMPRESSION: No acute intracranial findings. ACT 112: Negative or not required by law. Electronically signed by: Nav Jurado M.D. 03/29/2022 3:29 PM Discharge Plan Visit Data Chief Complaint: Hypertension ED Provider: Elida Christian Discharge Problem: Dizziness Patient Disposition: Admitted As Inpatient Discharge Instructions Interventions: ED Discharge Assessment Last Done: 03/29/22 19:51
[2022-03-29] MEDS: SODIUM CHLORIDE 0.9% 1000ML 1,000 ML IV SCH ×2 (14:13→22:56)
[2022-03-29 14:23] LABS: Basophils # (auto) 0.02 K/uL (0-0.2); Basophils % (auto) 0.4 %; Eosinophils # (auto) 0.04 K/uL (0-0.50); Eosinophils % (auto) 0.8 %; Hematocrit (blood only) 41.6 % (37.0-47.0); Hemoglobin 14.2 g/dl (12.0-16.0); Immature Granulocytes # (auto) 0.02 K/uL (0.01-0.20); Immature Granulocytes % (auto) 0.4 %; Lymphocytes # (auto) 1.75 K/uL (1.2-3.4); Lymphocytes % (auto) 35.4 %; Mean Corpuscular Hemoglobin 31.7 pg (25.0-34.0); Mean Corpuscular Hgb Conc 34.1 g/dL (32.0-36.0); Mean Corpuscular Volume 92.9 fL (80.0-100.0); Mean Platelet Volume 10.5 fL (9.4-12.4); Monocytes % (auto) 6.1 %; Neutrophils # (auto) 2.81 K/uL (1.40-6.50); Neutrophils % (auto) 56.9 %; Platelet Count 227 K/uL (130-400); RDW Coefficient of Variation 13.6 % (11.5-14.5); RDW Standard Deviation 46.5 fL (36.4-46.3); Red Blood Count 4.48 M/uL (4.20-5.40); White Blood Count 4.94 K/ul (4.8-10.8)
[2022-03-29 14:30] LABS: Albumin Globulin Ratio 1.2 (0.9-2); BUN Creatinine Ratio 20.5 (10-20); Bilirubin,Total 0.5 mg/dl (0.2-1.0); Calcium 8.9 mg/dl (8.5-10.1); Creatinine Clr Calc Pharmacy 81.8 ml/min; Est GFR (African American) 76.6 ml/min; Est GFR (Non-African American) 66.1 ml/min; Globulin 3.3 gm/dl (2.5-4.0); Magnesium 1.9 mg/dl (1.7-2.4); Total Protein 7.3 gm/dl (6.0-8.3)
[2022-03-29 14:36] LABS: Troponin I High Sensitivity 5.9 pg/ml (0-14)
[2022-03-29] MEDS ORDERED: OPTIRAY 320 500ml IV ONE (15:09)
--- NOTE | 2022-03-29 15:31 | CT Scan Report ---
CT OF THE HEAD WITHOUT CONTRAST CLINICAL HISTORY: dizziness, vision change COMPARISON STUDY: Head CT September 08, 2021. TECHNIQUE: Helical axial images of the head were obtained without IV contrast. Automated exposure con trol was utilized for the study. A dose lowering technique was utilized adhering to the principles o f ALARA. FINDINGS: No acute intracranial hemorrhage, midline shift or mass effect is present. The ventricular system is unremarkable. The basal cisterns are patent. No extra-axial collections are present. There are no findings to suggest acute dural sinus thrombosis or acute territorial infarct. There are no si gnificant calvarial abnormalities. Trace fluid within left mastoid air cells is unchanged. There is m inimal sinus mucosal thickening. IMPRESSION: No acute intracranial findings. ACT 112: Negative or not required by law. Electronically signed by: Nav Jurado M.D. 03/29/2022 3:29 PM
--- NOTE | 2022-03-29 15:35 | CT Scan Report ---
CT ANGIOGRAPHY OF THE NECK WITH CONTRAST CLINICAL HISTORY: dizzy, vision change COMPARISON STUDY: No previous studies for comparison. Technique: CT angiography of the carotid and vertebral arteries was obtained using Optiray and 3D rec onstruction on an independent workstation. NASCET criteria was utilized. Automated exposure control was utilized for the study. A dose lowering technique was utilized adhering to the principles of ALA RA. CT DOSE: 1361.35 mGy.cm Findings: This exam is mildly compromised by quantum mottle artifact. The bilateral common carotid, c ervical internal carotid and vertebral arteries are patent. There is no stenosis or dissection within these vessels. There is minimal plaque within the bilateral carotid bifurcations without stenosis. T here is no cervical lymphadenopathy. No cervical spine fracture is present. Trace fluid within the le ft mastoid air cells is unchanged from earlier head CT. IMPRESSION: No stenosis or dissection within the bilateral common carotid, cervical internal carotid or vertebral arteries. ACT 112: Negative or not required by law. Electronically signed by: Nav Jurado M.D. 03/29/2022 3:34 PM
--- NOTE | 2022-03-29 15:40 | CT Scan Report ---
CTA ANGIOGRAPHY OF THE HEAD CLINICAL HISTORY: dizzy, vision change COMPARISON STUDY: Head CT September 08, 2021. TECHNIQUE: Helical axial images of the head were obtained following uneventful intravenous administr ation of 116 cc of Optiray. Sagittal and coronal reconstructions were viewed as well as maximal inten sity projections on an independent 3-D workstation. Automated exposure control was utilized for the study. A dose lowering technique was utilized adhering to the principles of ALARA. FINDINGS: The bilateral M1, M2, A1 and A2 segments are patent. There is mild plaque within the bilate ral cavernous carotids without stenosis. There is no dissection within the intracranial vessels. Ther e is persistence of the bilateral posterior cerebral arteries. No central vessel occlusion with in the posterior circulation is identified. Major dural sinuses are patent. Ventricular system is nor mal. Basal cisterns are patent. There are no extra-axial collections. No acute intracranial hemorrhag e is identified on the noncontrast head CT which will be reported separately. Trace fluid within the left mastoid air cells is unchanged from earlier exams. IMPRESSION: No central vessel occlusion. No intracranial aneurysm. ACT 112: Negative or not required by law. Electronically signed by: Nav Jurado M.D. 03/29/2022 3:37 PM
[2022-03-29] MEDS ORDERED: ACETAMINOPHEN 500 MG TAB ONE (16:17)
[2022-03-29] MEDS ORDERED: MECLIZINE HCL 25 MG TAB PO STA (16:20)
[2022-03-29] MEDS ORDERED: MECLIZINE HCL 25 MG TAB PO ONE (16:21)
[2022-03-29] MEDS ORDERED: PROCHLORPERAZINE 1 ML IV ONE (17:10)
[2022-03-29] MEDS ORDERED: diphenhydrAMINE 50 MG/ML VIAL IV STA (17:10)
[2022-03-29] MEDS ORDERED: POLYETHYLENE (MIRALAX) 17 GM PACK PO PRN (18:08)
[2022-03-29] MEDS ORDERED: ALUMINUM/MAGNESIUM SUSP 30 ML UDC PO PRN (18:08)
[2022-03-29] MEDS ORDERED: MAGNESIUM HYDROXIDE SUSP 30 ML UDC PO PRN (18:08)
--- NOTE | 2022-03-29 18:32 | History & Physical Report ---
Date of Service March 29, 2022 Assessment & Plan (1) Generalized weakness: Plan Weakness Likely orthostatic hypotension Patient presents with dizziness/blurry vision associated with change in position from lying to sitting up. Patient denies any chest pain or palpitation. Admitting EKG and troponin WNL. Admitting TSH WNL. Admitting labs fairly WNL. Admitting CTA head and neck and CT Head w/ no acute findings. Patient has been on diet since February 24 with low-carb/low sugar/low sodium diet and happens to take her as needed Lasix yesterday which might have triggered her weakness further today. Continue to monitor over telemetry, will get orthostatic vitals, patient advised to increase her diet, will consult dietitian for help with regarding weight loss program plan. Labs in a.m. hold Lasix. PT/OT. Pt lives alone. Fall precaution. Slow change in position between lying to sitting to standing. Will hold on to dizziness meds for now. Will use IVF gentle, and encourage diet for now. f/u resp viral screen. Other chronic medical conditions: HTN, HLD, GERD, JALEN, hypothyroidism, vitamin B12 deficiency, low back pain --- resume home meds as above. DVT prophylaxis: Patient on Eliquis Full code History of Present Illness Chief Complaint: whole body weakness, dizziness Primary Care Provider: Irish Richard DO 71-year-old lady with PMH of HTN, HLD, hypothyroidism, JALEN on CPAP, paroxysmal A-fib and PE on Eliquis, CAD, stress-induced cardiomyopathy, old KS, cardiac pacemaker in situ, lumbosacral radiculopathy presented to the ED 03/29 with complaint of generalized weakness and dizziness associated with double vision. Patient reported being lightheaded associated with inability to focus/weakness after she woke up in the morning since last 3 days for which she needed to sit at the edge of the bed for 5 minutes and it would slowly go away and would get better as the days went by. This happened today morning as well. And later around 12 noon, she was lying down on the recliner and she sat up to answer the phone call from her sister and at that point she had again dizziness but this time more severe and is associated with double vision, and tingling sensation and generalized weakness throughout the body. No focal weakness. Patient denies any fever or flulike illness or diarrhea or increased urinary frequency or decreased fluid intake in the recent past. Patient denies any medication changes in the recent past but patient happened to take her as needed Lasix yesterday. Lasix dose prior to yesterday was 1 week before. Also patient stated that she has been on diet since February 24 of this year with a goal to lose weight, she cannot perform exercise due to lower back pain. She has lost 23 pounds since February 24 per her. Her regular diet looks like: Banana x1, pork chop and a small serving of salad per day. Patient denies any chest pain or palpitation or sore throat or cough or headache or dizziness with change in the position of the head while lying flat or belly pain or other review of symptoms. Patient denies smoking or use of alcohol or recreational drugs. Full code Medications reviewed with the patient at bedside. Plan of care discussed with the patient, she voiced understanding. Allergies Allergy/AdvReac Type Severity Reaction Status Date / Time celecoxib Allergy Intermediate Hives Verified 03/29/22 16:17 latex Allergy Intermediate RASH Verified 03/29/22 16:17 lisinopril AdvReac Intermediate Cough Verified 03/29/22 16:17 Home Medications Medication Instructions Recorded Confirmed Type acetaminophen 325 mg tablet 2 tab PO Q6H PRN Pain 10/22/17 03/29/22 History aspirin 81 mg tablet,delayed 81 mg PO QAM 10/22/17 03/29/22 History release (Vonda Low Dose Aspirin) cholecalciferol (vitamin D3) 25 1,000 units PO QAM 10/22/17 03/29/22 History mcg (1,000 unit) capsule cyanocobalamin (vitamin B-12) 1,000 mcg sublingual QA 10/22/17 03/29/22 History 1,000 mcg sublingual tablet losartan 100 mg tablet 100 mg PO QAM 10/22/17 03/29/22 History amlodipine 2.5 mg tablet 2.5 mg PO QAM 07/02/18 03/29/22 History amiodarone 200 mg tablet 200 mg PO QAM 12/02/19 03/29/22 History atorvastatin 40 mg tablet (Lipitor) 40 mg PO HS 12/02/19 03/29/22 History metoprolol succinate 25 mg 25 mg PO QAM 12/02/19 03/29/22 History tablet,extended release 24 hr escitalopram oxalate 20 mg tablet 20 mg PO QPM 07/12/20 03/29/22 History fluticasone propionate 50 2 spray intranasal DAILY PRN 05/19/21 03/29/22 History mcg/actuation nasal Congestion spray,suspension levothyroxine 50 mcg tablet 50 mcg PO DAILYBB 05/19/21 03/29/22 History furosemide 20 mg tablet (Lasix) 20 mg PO DAILY PRN edema #10 tabs 05/24/21 03/29/22 Rx apixaban 5 mg tablet (Eliquis) 5 mg PO BID #60 tabs 09/10/21 03/29/22 Rx omeprazole 20 mg capsule,delayed 40 mg PO AMHS #30 caps 09/10/21 03/29/22 Rx release sennosides 8.6 mg-docusate sodium 1 tab PO QAM PRN constipation #30 09/10/21 03/29/22 Rx 50 mg tablet (Senokot-S) tabs acetaminophen 325 mg tablet 650 mg PO Q4H PRN pain #30 tabs 10/31/21 03/29/22 Rx gabapentin 100 mg capsule 100 mg PO BID #60 caps 10/31/21 03/29/22 Rx oxycodone 5 mg tablet 5 mg PO Q6H PRN pain #10 tabs 02/22/22 03/29/22 Rx Past Med/Surg History Medical History Abdominal pain Atrial fibrillation Paroxysmal atrial fibrillation, on rhythm control strategy with dofetilide, Coumadin (entered by Dr Borges 10/22/17) Atypical chest pain CAD (coronary artery disease) Hx cardiac cath 2015: coronary arteries have diffuse minor irregularities Chest pain Depression GERD (gastroesophageal reflux disease) GI bleed H/O cholecystitis H/O cholecystitis HLD (hyperlipidemia) HTN (hypertension) Hx pulmonary embolism 2015 Melanotic stools Melena NSTEMI (non-ST elevated myocardial infarction) Obesity JALEN (obstructive sleep apnea) JALEN (obstructive sleep apnea) Paroxysmal atrial fibrillation Precordial chest pain Stress-induced cardiomyopathy Takotsubo cardiomyopathy Surgical History H/O carpal tunnel repair H/O carpal tunnel repair H/O wisdom tooth extraction H/O: hysterectomy H/O: hysterectomy Hx of cardiac catheterization Hx of cardiac catheterization Angiographically normal coronary arteries, 10/22/17, [facility]. History, echocardiogram, cardiac catheterization data consistent with atypical presentation of stress-induced cardiomyopathy with normal apical wall motion, and hypokinesis to akinesis of the basal left ventricular myocardial segments Family History Father , in 60's of myocardial infarction Myocardial infarction, Onset Age: 62 Brother Myocardial infarction, Onset Age: 68 Other Diabetes Hypertension Social History Smoking Status: Never smoker Second Hand Exposure: No; Hx Alcohol Use: No Hx Substance Use: No Preferred Language: Romansh Communication Ability: Effective Visual Impairment: Limited Hearing Ability: Normal Access Control Specialist Required: No Beliefs That Will Affect Care: None marital status: Single Current Living Situation: Alone Current Living Situation Comment: appartment Feels Safe at Home: Yes Assistive Devices: Cane and Walker Review of Systems Review of Systems: Negative otherwise mentioned in HPI. Physical Exam Physical Exam: GENERAL: Alert and oriented x3. NAD, on RA. Obese class III. HEENT: No pallor, no icterus. Pupils equal, round and reactive to light. Oral mucosa moist. NECK: No JVD, no neck masses. HEART: S1 and S2 heard. Regular rate and rhythm. No murmur, no gallop. RESPIRATORY SYSTEM: Normal AP diameter. No accessory muscle use. No wheezing, no crackles. ABDOMEN: Soft, bowel sounds present, nontender, no distention. CENTRAL NERVOUS SYSTEM: No facial droop. Speech is clear. Obeys simple commands. Moves extremities. EXTREMITIES: No edema, no erythema seen. Results & Data Results & Data ([facility]) Vital Signs (Past 12 Hours) Vital Signs Temp Pulse Pulse Resp BP BP Pulse Ox 03/29/22 17:58 62 18 137/66 98 03/29/22 16:13 60 18 133/61 96 03/29/22 15:39 60 20 151/67 H 93 03/29/22 14:13 61 12 145/62 H 96 03/29/22 13:31 36.6 C 62 20 147/57 H 96 03/29/22 13:13 76 20 97 03/29/22 13:11 88 16 146/108 H 96 O2 Del Method 03/29/22 17:58 Room Air 03/29/22 16:13 Room Air 03/29/22 15:39 03/29/22 14:13 Room Air 03/29/22 13:31 Room Air 03/29/22 13:13 Room Air 03/29/22 13:11 Room Air Code Status & VTE Plan VTE Prophylaxis Plan VTE Prophylaxis will be ordered: Yes
[2022-03-29 18:53] LABS: Influenza A virus by PCR Negative (Neg); Influenza B virus by PCR Negative (Neg); RSV by PCR Negative (Neg); SARS CoV2 RNA(COVID-19) Ceph NEGATIVE (Negative)
[2022-03-29] MEDS ORDERED: FLUTICASONE PROPIONATE NA SPR 16 GM BTL PRN (20:25)
[2022-03-29] MEDS ORDERED: oxyCODONE HCL IR 5 MG TAB (IMMEDIATE RELEASE) PO PRN (20:25)
[2022-03-29] MEDS ORDERED: DOCUSATE SODIUM/SENNA 50/8.6MG TAB PO PRN (20:25)
[2022-03-29] MEDS: PANTOprazole 40 MG TAB PO SCH (21:37)
[2022-03-29] MEDS: GABAPENTIN 100 MG CAP PO SCH (21:37)
[2022-03-29] MEDS: ATORVASTATIN 40 MG TAB PO SCH (21:38)
[2022-03-29] MEDS: ESCITALOPRAM OXALATE 20 MG TAB PO SCH (21:38)
[2022-03-29] MEDS: APIXABAN 5 MG TABLET PO SCH (21:38)
[2022-03-30] MEDS: LEVOTHYROXINE SODIUM 50 MCG TABLET PO SCH (05:47)
[2022-03-30] MEDS: ACETAMINOPHEN 325 MG TAB PO PRN ×3 (06:36→19:54)
[2022-03-30 07:29] LABS: Hematocrit (blood only) 40.9 % (37.0-47.0); Hemoglobin 13.5 g/dl (12.0-16.0); Mean Corpuscular Hemoglobin 30.8 pg (25.0-34.0); Mean Corpuscular Volume 93.2 fL (80.0-100.0); Mean Platelet Volume 9.7 fL (9.4-12.4); Platelet Count 188 K/uL (130-400); RDW Coefficient of Variation 13.7 % (11.5-14.5); RDW Standard Deviation 46.8 fL (36.4-46.3); Red Blood Count 4.39 M/uL (4.20-5.40)
[2022-03-30 08:06] LABS: BUN Creatinine Ratio 14.3 (10-20); Calcium 8.2 mg/dl (8.5-10.1); Creatinine Clr Calc Pharmacy 78.9 ml/min; Est GFR (African American) 73.6 ml/min; Est GFR (Non-African American) 63.5 ml/min; Phosphorus 3.1 mg/dl (2.5-4.9); Potassium 3.5 mmol/L (3.5-5.1)
[2022-03-30] MEDS: APIXABAN 5 MG TABLET PO SCH ×2 (08:14→19:55)
[2022-03-30] MEDS: LOSARTAN POTASSIUM 50 MG TAB PO SCH (08:15)
[2022-03-30] MEDS: METOPROLOL SUCC 25MG EXT REL TAB PO SCH (08:15)
[2022-03-30] MEDS: GABAPENTIN 100 MG CAP PO SCH ×2 (08:15→19:54)
[2022-03-30] MEDS: PANTOprazole 40 MG TAB PO SCH ×2 (08:15→19:54)
[2022-03-30] MEDS: AMIODARONE 200 MG TAB PO SCH (08:16)
[2022-03-30] MEDS: CYANOCOBALAMIN (B-12) 500 MCG TABLET PO SCH (08:16)
[2022-03-30] MEDS: ASPIRIN 81 MG ECTAB PO SCH (08:16)
[2022-03-30] MEDS ORDERED: POTASSIUM CHLORIDE CRTAB 20 MEQ TABCR PO STA (08:53)
[2022-03-30] MEDS: ONDANSETRON INJ 2 MG/ML 2 ML VIAL IV PRN ×2 (10:57→21:13)
[2022-03-30] MEDS: SODIUM CHLORIDE 0.9% 1000ML 1,000 ML IV SCH (12:17)
--- NOTE | 2022-03-30 14:41 | Hospitalist Progress Note ---
Date of Service March 30, 2022 Assessment & Plan (1) Generalized weakness: Plan Weakness Likely orthostatic hypotension Patient presents with dizziness/blurry vision associated with change in position from lying to sitting up. Patient denies any chest pain or palpitation. Admitting EKG and troponin WNL. Admitting TSH WNL. Admitting labs fairly WNL. Admitting CTA head and neck and CT Head w/ no acute findings. Viral resp screen neg. Patient has been on diet since February 24 with low-carb/low sugar/low sodium diet and happens to take her as needed Lasix the day prior to arrival which might have triggered her weakness further on the day of arrival. Continue to monitor over telemetry, will get orthostatic vitals q shift, patient advised to increase her diet, vp director of finance consult for help with weight loss program plan. Labs in a.m. hold Lasix. Monitor and replete electrolytes, kcl 20 meq today. PT/OT. Pt lives alone. Fall precaution. Slow change in position between lying to sitting to standing. Will use gentle IVF, and encourage diet for now. Pt still w/ dizziness/blurry vision with standing up from lying position, but lesser severity than yesterday. If continued dizziness in obdulio AM eval, will consider neurology consult in AM. Other chronic medical conditions: HTN, HLD, GERD, JALEN, hypothyroidism, vitamin B12 deficiency, low back pain --- resume home meds as above. DVT prophylaxis: Patient on Eliquis Full code Admission and Anticipated Discharge Date Admission Date: March 29, 2022 Subjective Patient seen and examined at bedside as a follow-up of generalized weakness, dizziness/blurry vision with sitting up from lying down position, likely ortho static hypotension. Patient was lying in bed, on room air, reports no new acute event overnight, reports eating better, is moving bowels okay, still has dizziness/blurry vision with standing up or sitting up from lying down position. Patient advised to take time while changing position. Patient denies any chest pain or palpitation or belly pain or other review of symptoms. Physical Exam Physical Exam: GENERAL: Alert and oriented x3. NAD, on RA. Obese class III. HEENT: No pallor, no icterus. Pupils equal, round and reactive to light. Oral mucosa moist. NECK: No JVD, no neck masses. HEART: S1 and S2 heard. Regular rate and rhythm. No murmur, no gallop. RESPIRATORY SYSTEM: Normal AP diameter. No accessory muscle use. No wheezing, no crackles. ABDOMEN: Soft, bowel sounds present, nontender, no distention. CENTRAL NERVOUS SYSTEM: No facial droop. Speech is clear. Obeys simple comma nds. Moves extremities. EXTREMITIES: No edema, no erythema seen. Results & Data Results & Data ([facility]) Vital Signs (Past 12 Hours) Vital Signs Temp Pulse Resp BP Pulse Ox O2 Del Method 03/30/22 11:29 36.5 C 62 18 143/74 H 92 Room Air 03/30/22 07:11 36.5 C 60 18 131/49 L 94 Room Air 03/30/22 03:15 17 03/30/22 02:57 36.4 C L 68 18 139/73 93 CPAP
[2022-03-30] MEDS: ESCITALOPRAM OXALATE 20 MG TAB PO SCH (19:55)
[2022-03-30] MEDS: ATORVASTATIN 40 MG TAB PO SCH (19:55)
--- NOTE | 2022-03-30 22:51 | Electrocardiogram Report ---
Test Reason : Blood Pressure : / mmHG Vent. Rate : 083 BPM Atrial Rate : 081 BPM P-R Int : 262 ms QRS Dur : 084 ms QT Int : 392 ms P-R-T Axes : 032 014 003 degrees QTc Int : 460 ms Poor data quality, interpretation may be adversely affected Atrial-paced rhythm with prolonged AV conduction Nonspecific T wave abnormality Abnormal ECG When compared with ECG of 29-OCT-2021 05:28, No significant change Confirmed by Adrien Soliman ([id number]) on 03/30/2022 10:51:01 PM Referred By: Irish Richard Confirmed By:Adrien Soliman
[2022-03-31] MEDS: SODIUM CHLORIDE 0.9% 1000ML 1,000 ML IV SCH ×2 (02:33→17:05)
[2022-03-31] MEDS: LEVOTHYROXINE SODIUM 50 MCG TABLET PO SCH (05:55)
[2022-03-31 07:07] LABS: Hematocrit (blood only) 37.4 % (37.0-47.0); Hemoglobin 12.3 g/dl (12.0-16.0); Mean Corpuscular Hemoglobin 31.6 pg (25.0-34.0); Mean Corpuscular Hgb Conc 32.9 g/dL (32.0-36.0); Mean Corpuscular Volume 96.1 fL (80.0-100.0); Platelet Count 159 K/uL (130-400); RDW Coefficient of Variation 13.8 % (11.5-14.5); RDW Standard Deviation 49.2 fL (36.4-46.3); Red Blood Count 3.89 M/uL (4.20-5.40); White Blood Count 3.95 K/ul (4.8-10.8)
[2022-03-31 07:25] LABS: Anion Gap 4 (3-11); BUN Creatinine Ratio 15.8 (10-20); Blood Urea Nitrogen 16 mg/dl (6-23); Carbon Dioxide 29 mmol/L (21-32); Chloride 112 mmol/L (98-107); Creatinine Clr Calc Pharmacy 71.5 ml/min; Est GFR (African American) 64.9 ml/min; Glucose 96 mg/dl (70-99(Fasting)); Magnesium 1.8 mg/dl (1.7-2.4); Phosphorus 2.6 mg/dl (2.5-4.9); Sodium 145 mmol/L (136-145)
[2022-03-31] MEDS: GABAPENTIN 100 MG CAP PO SCH ×2 (07:36→21:21)
[2022-03-31] MEDS: APIXABAN 5 MG TABLET PO SCH ×2 (07:36→21:20)
[2022-03-31] MEDS: CYANOCOBALAMIN (B-12) 500 MCG TABLET PO SCH (07:36)
[2022-03-31] MEDS: ASPIRIN 81 MG ECTAB PO SCH (07:37)
[2022-03-31] MEDS: AMIODARONE 200 MG TAB PO SCH (07:37)
[2022-03-31] MEDS: LOSARTAN POTASSIUM 50 MG TAB PO SCH (07:37)
[2022-03-31] MEDS: METOPROLOL SUCC 25MG EXT REL TAB PO SCH (07:37)
[2022-03-31] MEDS: ACETAMINOPHEN 325 MG TAB PO PRN ×2 (07:38→21:22)
[2022-03-31] MEDS: PANTOprazole 40 MG TAB PO SCH ×2 (07:40→21:22)
[2022-03-31] MEDS: ONDANSETRON INJ 2 MG/ML 2 ML VIAL IV PRN (08:50)
[2022-03-31] MEDS ORDERED: METOPROLOL SUCC 25MG EXT REL TAB PO SCH (09:00)
[2022-03-31] MEDS: amLODIPine BESYLATE 5 MG TAB PO SCH (12:47)
--- NOTE | 2022-03-31 15:05 | Hospitalist Progress Note ---
Date of Service March 31, 2022 Assessment & Plan (1) Generalized weakness: (2) Dizziness: Plan: Has been complaining of dizziness with changing posture most likely on sitting from lying and standing from sitting position Associated with high blood pressure with headache and sometimes blurred vision No other neurological symptoms and the dizziness is not associated with rapid movements of the neck CT of the head and CTA of the head and neck are unremarkable Additional blood pressure medications have been added We will observe and continue with physical therapy If the dizziness persist will get neurology involved Plan Weakness Orthostatic hypotension has been ruled out Patient presents with dizziness/blurry vision associated with change in position from lying to sitting up. Patient denies any chest pain or palpitation. Admitting EKG and troponin WNL. Admitting TSH WNL. Admitting labs fairly WNL. Admitting CTA head and neck and CT Head w/ no acute findings. Viral resp screen neg. Has had PT and OT evaluation and recommended home Continue PT and OT Patient has been on diet since February 24 with low-carb/low sugar/low sodium diet and happens to take her as needed Lasix the day prior to arrival which might have triggered her weakness further on the day of arrival. Continue to monitor over telemetry, will get orthostatic vitals q shift, patient advised to increase her diet, security supervisor consult for help with weight loss program plan. Other chronic medical conditions: HTN, HLD, GERD, JALEN, hypothyroidism, vitamin B12 deficiency, low back pain --- resume home meds as above. DVT prophylaxis: Patient on Eliquis Full code Admission and Anticipated Discharge Date Admission Date: March 29, 2022 Subjective 03/31/2022 The patient was seen and examined in medical telemetry unit She has been complaining of headache associated with dizziness especially following sitting down from lying or standing from sitting down Did feel nauseous initially but no more and she denies any dizziness with rapid movements of the neck She does have orthostatic hypotension while sitting and standing without any other changes with the pulses and she gets symptoms of dizziness sometimes with blurred vision as well No numbness and or tingling involving the extremities and does not have any weakness involving any side of the body Review of Systems Review of Systems: All systems reviewed and are unremarkable except as noted with Neurologic: Dizziness on sitting down and standing Physical Exam Physical Exam: Sitting on a chair without any acute distress Constitutional: well developed, well nourished and + morbidly obese Eyes: PERRL, conjunctivae normal, anicteric sclerae ENMT: external ear and nose normal, oropharynx normal Neck: trachea midline, no thyromegaly Respiratory: no respiratory distress Auscultation: lungs clear to auscultation bilaterally and + diminished lung sounds Cardiovascular: Rate/Rhythm: regular rate and regular rhythm; not tachycardic Heart Sounds: normal S1 and normal S2; no murmur Gastrointestinal (Abdomen): Inspection/Auscultation: normal bowel sounds; abdomen not distended Percussion/Palpation: abdomen soft; abdomen nontender Musculoskeletal: No acute arthritis involving any joint Neurologic: Alert, awake and oriented x3. No focal sensory or motor deficit appreciated Psychiatric: A+Ox3, euthymic affect Lymphatic: no cervical or axillary lymphadenopathy Results & Data Results & Data ([facility]) Vital Signs (Past 12 Hours) Vital Signs Temp Pulse Pulse Resp BP BP Pulse Ox 03/31/22 12:04 36.6 C 64 20 109/66 94 03/31/22 07:00 36.5 C 66 18 160/80 H 92 03/31/22 07:05 72 03/31/22 06:54 03/31/22 04:09 36.5 C 62 20 138/67 96 O2 Del Method 03/31/22 12:04 Room Air 03/31/22 07:00 Room Air 03/31/22 07:05 03/31/22 06:54 Room Air 03/31/22 04:09 Room Air Laboratory Results Short CBC 03/31/22 Range/Units 05:56 WBC 3.95 L (4.8-10.8) K/ul Hgb 12.3 (12.0-16.0) g/dl Hct 37.4 (37.0-47.0) % Plt Count 159 (130-400) K/uL BMP 03/31/22 03/31/22 05:56 07:47 Sodium 145 Potassium TNP 3.8 Chloride 112 H Carbon Dioxide 29 BUN 16 Creatinine 1.01 Glucose 96 Calcium 8.0 L Medications Administered Current Inpatient Medications Acetaminophen (Acetaminophen 325 Mg Tab) 650 mg PO Q4H PRN PRN Reason: Mild Pain or Fever Stop: 04/28/22 18:07 Last Admin: 03/31/22 07:38 Dose: 650 mg Al Hydrox/Mg Hydrox/Simethicone (Aluminum/Magnesium Susp 30 Ml Udc) 15 ml PO Q4H PRN PRN Reason: Dyspepsia Stop: 04/28/22 18:07 Amiodarone HCl ([facility] 200 Mg Tab) [facility] [place]: 04/29/22 08:59 Last Admin: 03/31/22 07:37 Dose: 200 mg Amlodipine Besylate (Amlodipine Besylate 5 Mg Tab) [facility] Stop: 04/30/22 11:59 Last Admin: 03/31/22 12:47 Dose: 5 mg Apixaban (Apixaban 5 Mg Tablet) 5 mg PO BID [facility] Stop: 04/28/22 20:59 Last Admin: 03/31/22 07:36 Dose: 5 mg Aspirin (Aspirin 81 Mg Ectab) [facility] Stop: 04/29/22 08:59 Last Admin: 03/31/22 07:37 Dose: 81 mg Atorvastatin Calcium (Atorvastatin 40 Mg Tab) 40 mg PO HS [facility] Stop: 04/28/22 20:59 Last Admin: 03/30/22 19:55 Dose: 40 mg Cyanocobalamin (Cyanocobalamin (B-12) 500 Mcg Tablet) 1,000 [facility]cg [facility] Stop: 04/29/22 08:59 Last Admin: 03/31/22 07:36 Dose: 1,000 mcg Escitalopram Oxalate (Escitalopram Oxalate 20 Mg Tab) 20 mg PO QPM [facility] Stop: 04/28/22 20:59 Last Admin: 03/30/22 19:55 Dose: 20 mg Fluticasone Propionate (Fluticasone Propionate Na Spr 16 Gm Btl) 2 sprays NA DA TERRI PRN PRN Reason: Congestion Stop: 04/28/22 20:24 Gabapentin (Gabapentin 100 Mg Cap) 100 mg PO BID [facility] Stop: 04/28/22 20:59 Last Admin: 03/31/22 07:36 Dose: 100 mg Sodium Chloride (Nss 1000ml) 1,000 mls @ 65 mls/hr IV .[id number] [facility] Stop: 04/28/22 13:59 Last Admin: 03/31/22 02:33 Dose: 65 mls/hr Levothyroxine Sodium (Levothyroxine Sodium 50 Mcg Tablet) 50 mcg PO DAILYBB [facility] Stop: 04/29/22 06:29 Last Admin: 03/31/22 05:55 Dose: 50 mcg Losartan Potassium (Losartan Potassium 50 Mg Tab) 100 mg PO QAM [facility] Stop: 04/29/22 08:59 Last Admin: 03/31/22 07:37 Dose: 100 mg Magnesium Hydroxide (Magnesium Hydroxide Susp 30 Ml Udc) 30 ml PO Q12H PRN PRN Reason: Constipation Stop: 04/28/22 18:07 Metoprolol Succinate (Metoprolol Succ 25mg Ext Rel Tab) 25 mg PO BID [facility] Stop: 04/30/22 08:59 Last Admin: 03/31/22 09:54 Dose: 25 mg Ondansetron HCl (Ondansetron Inj 2 Mg/Ml 2 Ml Vial) 4 mg IV Q6H PRN PRN Reason: Nausea Stop: 04/28/22 18:07 Last Admin: 03/31/22 08:50 Dose: 4 mg Oxycodone HCl (Oxycodone Hcl Ir 5 Mg Tab (Immediate Release)) 5 mg PO Q6H PRN PRN Reason: moderate to severe pain Stop: 04/12/22 20:24 Pantoprazole Sodium (Pantoprazole 40 Mg Tab) 40 mg PO [facility]; Protocol Stop: 04/28/22 20:59 Last Admin: 03/31/22 07:40 Dose: 40 mg Polyethylene Glycol (Polyethylene (Miralax) 17 Gm Pack) 17 gm PO DAILY PRN PRN Reason: Constipation Stop: 04/28/22 18:07 Senna/Docusate Sodium (Docusate Sodium/Senna 50/8.6mg Tab) 1 tab PO QAM PRN PRN Reason: constipation Stop: 04/28/22 20:24
[2022-03-31] MEDS: ATORVASTATIN 40 MG TAB PO SCH (21:20)
[2022-03-31] MEDS: ESCITALOPRAM OXALATE 20 MG TAB PO SCH (21:21)
[2022-04-01] MEDS: LEVOTHYROXINE SODIUM 50 MCG TABLET PO SCH (06:14)
[2022-04-01] MEDS: SODIUM CHLORIDE 0.9% 1000ML 1,000 ML IV SCH (06:21)
[2022-04-01] MEDS: ONDANSETRON INJ 2 MG/ML 2 ML VIAL IV PRN (07:47)
[2022-04-01] MEDS: ACETAMINOPHEN 325 MG TAB PO PRN ×2 (07:47→15:49)
[2022-04-01] MEDS: METOPROLOL SUCC 25MG EXT REL TAB PO SCH (09:02)
[2022-04-01] MEDS: amLODIPine BESYLATE 5 MG TAB PO SCH (09:02)
[2022-04-01] MEDS: CYANOCOBALAMIN (B-12) 500 MCG TABLET PO SCH (09:03)
[2022-04-01] MEDS: PANTOprazole 40 MG TAB PO SCH ×2 (09:03→21:19)
[2022-04-01] MEDS: LOSARTAN POTASSIUM 50 MG TAB PO SCH (09:03)
[2022-04-01] MEDS: APIXABAN 5 MG TABLET PO SCH ×2 (09:03→21:17)
[2022-04-01] MEDS: ASPIRIN 81 MG ECTAB PO SCH (09:03)
[2022-04-01] MEDS: GABAPENTIN 100 MG CAP PO SCH ×2 (09:03→21:18)
[2022-04-01] MEDS: AMIODARONE 200 MG TAB PO SCH (09:03)
--- NOTE | 2022-04-01 11:24 | Neurology Consultation ---
Date of Consultation April 01, 2022 Assessment & Plan (1) Dizziness: (2) Generalized weakness: (3) Atrial fibrillation, controlled: (4) H/O cardiac pacemaker: Plan Patient has had the new onset of positional "dizziness". As she describes it and we examined her, I think this is more a vertiginous sensation and this is likely a positional vertigo. I do not believe this represents lightheadedness and she does not seem to be dropping her pressure with standing. She has a sense of generalized weakness but she has no specific weakness on examination. She has no other focal neurologic findings, meningeal signs, or encephalopathy. Three has a history of atrial fibrillation which is rate controlled and she has a pacemaker for tachy-jess syndrome. Unfortunately, the pacemaker is not MRI compatible. Nevertheless, I do not believe she had a stroke. Recommendations: 1. check blood pressure and pulse lying, sitting, and standing. 2. unfortunately, we cannot get an MRI of the brain, with attention to the inner ears and brainstem, because of the pacemaker (this could be double checked however to see if she could get MRI) 3. Consider meclizine 25 mg 2 or 3 times a day for the next several days to see if the vertiginous symptoms can parvin. After this, it could be used as needed. 4. Increase activity and consider physical and occupational therapy. 5. There is no need for additional neurologic testing at this time. Overall, I spent a total of 60 minutes with this case including review of records, review of CT films, direct evaluation the patient at bedside, and discussion of the case with the patient and RN at bedside, and Dr. Kwan including differential diagnosis and treatment options. History of Present Illness Reason for Consultation: patient is a 71-year-old, was asked to see at the request of Dr. Kwan, for neurologic consultation regarding acute, intermittent dizziness. Requesting Physician: Dr. Kwan Attending Physician: Deniz Kwan MD History of Present Illness this patient has a history of atrial fibrillation ( 2014) on apixaban and 81 mg aspirin. She also has a history of pacemaker put in 2019 and claims that this is MRI incompatible. She does have a history of hypertension and depression. Patient has no history of stroke or diabetes. She has not had hearing loss or tinnitus. The patient was in her usual state of health when in the morning of February 9th she woke up and as soon as she sat up she had wooziness "dizziness", feeling like she was moving. The environment was not moving. Her vision was blurry it was hard to focus. She had headache and nausea. the worst of the symptoms lasted about 5 minutes and she spent the rest of the day feeling a little bit "spacey" in her head. There was no confusion, speech problems, numbness, or weakness. She did well the rest of that day and overnight and the next morning when she sat up from bed she felt the same exact thing lasting about 5 minutes. She tried to get up and walk but she felt like she was veering to the left. She denied any tinnitus or hearing loss. She has no ear pain. On the morning of March 29 the same thing happens when she sat up in bed. She had the sudden onset of wooziness and dizziness and felt as if she was moving. This time she had some horizontal double vision. The worst of this lasted about 5 minutes and then the diplopia resolved. She was left with some nausea and headache. She has not had significant symptoms like described above since admission. She will get a little bit of wooziness feeling as if she was moving, when she sits up or stands up. She denies lightheadedness, memory loss, speech or vision issues, numbness or weakness, or pain otherwise. Currently she does not have a headache. On admission blood pressure was unremarkable and she was afebrile. Neurologic examination was otherwise unremarkable. Laboratory studies including CBC and Chem profile were unremarkable except for a sed rate of 49. TSH was at the upper limits of normal at 4.1. CT scan of the head as well as CT angiography of the head neck were unremarkable. I reviewed these films. Allergies Allergy/AdvReac Type Severity Reaction Status Date / Time celecoxib Allergy Intermediate Hives Verified 03/29/22 16:17 latex Allergy Intermediate RASH Verified 03/29/22 16:17 lisinopril AdvReac Intermediate Cough Verified 03/29/22 16:17 Home Medications Medication Instructions Recorded Confirmed Type acetaminophen 325 mg tablet 2 tab PO Q6H PRN Pain 10/22/17 03/29/22 History aspirin 81 mg tablet,delayed 81 mg PO QAM 10/22/17 03/29/22 History release (Vonda Low Dose Aspirin) cholecalciferol (vitamin D3) 25 1,000 units PO QAM 10/22/17 03/29/22 History mcg (1,000 unit) capsule cyanocobalamin (vitamin B-12) 1,000 mcg sublingual QAM 10/22/17 03/29/22 History 1,000 mcg sublingual tablet losartan 100 mg tablet 100 mg PO QAM 10/22/17 03/29/22 History amlodipine 2.5 mg tablet 2.5 mg PO QAM 07/02/18 03/29/22 History amiodarone 200 mg tablet 200 mg PO QAM 12/02/19 03/29/22 History atorvastatin 40 mg tablet (Lipitor) 40 mg PO HS 12/02/19 03/29/22 History metoprolol succinate 25 mg 25 mg PO QAM 12/02/19 03/29/22 History tablet,extended release 24 hr escitalopram oxalate 20 mg tablet 20 mg PO QPM 07/12/20 03/29/22 History fluticasone propionate 50 2 spray intranasal DAILY PRN 05/19/21 03/29/22 History mcg/actuation nasal Congestion spray,suspension levothyroxine 50 mcg tablet 50 mcg PO DAILYBB 05/19/21 03/29/22 History furosemide 20 mg tablet (Lasix) 20 mg PO DAILY PRN edema #10 tabs 05/24/21 03/29/22 Rx apixaban 5 mg tablet (Eliquis) 5 mg PO BID #60 tabs 09/10/21 03/29/22 Rx omeprazole 20 mg capsule,delayed 40 mg PO AMHS #30 caps 09/10/21 03/29/22 Rx release sennosides 8.6 mg-docusate sodium 1 tab PO QAM PRN constipation #30 09/10/21 03/29/22 Rx 50 mg tablet (Senokot-S) tabs acetaminophen 325 mg tablet 650 mg PO Q4H PRN pain #30 tabs 10/31/21 03/29/22 Rx gabapentin 100 mg capsule 100 mg PO BID #60 caps 10/31/21 03/29/22 Rx oxycodone 5 mg tablet 5 mg PO Q6H PRN pain #10 tabs 02/22/22 03/29/22 Rx Patient History Medical History Abdominal pain Atrial fibrillation Paroxysmal atrial fibrillation, on rhythm control strategy with dofetilide, Coumadin (entered by Dr Borges 10/22/17) Atypical chest pain CAD (coronary artery disease) Hx cardiac cath 2015: coronary arteries have diffuse minor irregularities Chest pain Depression GERD (gastroesophageal reflux disease) GI bleed H/O cholecystitis H/O cholecystitis HLD (hyperlipidemia) HTN (hypertension) Hx pulmonary embolism 2014 Melanotic stools Melena NSTEMI (non-ST elevated myocardial infarction) Obesity JALEN (obstructive sleep apnea) JALEN (obstructive sleep apnea) Paroxysmal atrial fibrillation Precordial chest pain Stress-induced cardiomyopathy Takotsubo cardiomyopathy Surgical History H/O carpal tunnel repair H/O carpal tunnel repair H/O wisdom tooth extraction H/O: hysterectomy H/O: hysterectomy Hx of cardiac catheterization Hx of cardiac catheterization Angiographically normal coronary arteries, 10/22/17, [facility]. History, echocardiogram, cardiac catheterization data consistent with atypical presentation of stress-induced cardiomyopathy with normal apical wall motion, and hypokinesis to akinesis of the basal left ventricular myocardial segments Family History Father , age 62 of an [place] Myocardial infarction, Onset Age: 62 Brother Myocardial infarction, Onset Age: 68 Mother , age 65 of a stroke Stroke Other Diabetes Hypertension Social History (Updated 04/01/22 @ 11:13 by Waldo Cordero MD) Smoking Status: Never smoker Second Hand Exposure: No; Hx Alcohol Use: No Hx Substance Use: No Preferred Language: Vietnamese Communication Ability: Effective Visual Impairment: Limited Hearing Ability: Normal Acute Care Nurse Required: No Beliefs That Will Affect Care: None marital status: Single Current Living Situation: Alone Current Living Situation Comment: appartment current occupational status: retired 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" Feels Safe at Home: Yes Assistive Devices: CPAP and Other Review of Systems Constitutional: + weakness; no fever and no fatigue Eyes: no diplopia, no eye pain and no worsening vision Ear, Nose, Mouth, Throat: + dizziness; no ear pain, no tinnitus, no hearing loss, no snoring, no hoarseness and no dysphagia Respiratory: no cough and no dyspnea Cardiovascular: no chest pain, no palpitations and no lightheadedness Gastrointestinal: no abdominal pain, no nausea and no vomiting Genitourinary: no dysuria, no urinary frequency and no urinary incontinence Musculoskeletal: no back pain, no neck pain, no radicular pain, no joint pain and no myalgia Integumentary: no rash and no lesions Neurologic: no gait abnormality, no localized weakness, no generalized weakness, no tingling, no numbness, no tremor(s), no abnormal movements, no headache(s), no abnormal speech, no confusion and no memory loss Psychiatric: + depression; no irritability, no anxiety, no difficulty concentrating, no confusion and no hallucinations Endocrine: no fatigue and no flushing Hematologic / Lymphatic: no easy bleeding and no easy bruising Allergy / Immunological: no urticaria and no problem reported Exam (Neuro) Physical Exam: The patient is right-handed. The patient is awake, alert, and attentive. Speech is normal without any aphasia or dysarthria. The patient can name objects, repeat phrases, and has normal spontaneous speech. Mentation and thought processes are intact, with orientation to person, place and time, and normal fund of knowledge. Attention and concentration are normal. Mood and affect are normal and appropriate. General appearance and grooming are normal. Short and long-term memory are intact. The discs are sharp with positive venous pulsations bilaterally. There are no exudates, hemorrhages, or blood vessel changes seen. Pupils are 4 mm bilaterally and reactive to light. Extraocular eye muscles are intact without nystagmus. Visual acuity and visual mackenzie seem normal grossly to confrontation. When the patient was sat up she had 2 beats of nystagmus when she looked to the left and had a sensation of her body moving. After about 10-20 seconds the nystagmus was gone. The same sensation and nystagmus was present when she went from sitting to standing. She again felt like she was moving and she had some nystagmus with looking to the left. Nystagmus was gone after 10 20 seconds. There are no deficits to sensation in the face in all 3 distributions of the fifth cranial nerve bilaterally. Corneal reflexes are positive bilaterally. Facial strength and symmetry was normal bilaterally. Hearing seems normal bilaterally. Palate moves well without asymmetry. There is normal sternocleidomastoid and trapezius (shoulder shrug) strength bilaterally. Tongue is midline with good strength bilaterally. Neck has a full range of motion without discomfort. There are no cervical bruits bilaterally. There are no cranial or ocular bruits. Heart is without murmur. There is a regular rhythm and rate. Cervical, thoracic, and lumbar spine are nontender to palpation. Gait Itself was not specifically tested. She used a walker to move when she was mildly vertiginous when she stood up. Standing with feet together and eyes closed created a sensation as if she was falling forward , but she did not seem to move very much. With outstretched arms there is no drift. There are no resting, postural, or action tremors. There is no ataxia with finger to nose testing. There is no ataxia with [id number] testing. There is good facility in the hands. No other abnormal involuntary movements are noted. 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 Motor strength is 5/5 diffusely in the legs bilaterally including hip flexors, quadriceps, hamstrings, gastrocnemius, tibialis anterior, tibialis posterior, and Peroneii muscles. Toe extensors are normal and there is good bulk in the extensor digitorum brevis muscles bilaterally. The limbs have good tone without rigidity or spasticity. There is no atrophy noted in the muscles. Muscle bulk is normal, there is no tenderness to palpation, no myotonia to percussion, and no fasciculations seen. Sensory examination is intact to touch and pin throughout all 4 limbs diffusely. Reflexes are 2/4 in the biceps, triceps, brachioradialis, quadriceps, and Achilles tendons bilaterally. There is no clonus bilaterally. Toes are downgoing with plantar stimulation bilaterally. Peripheral pulses are present and of normal quality distally in all 4 limbs. There is no peripheral edema noted in the limbs. Results & Data ([facility]) Vital Signs (Past 12 Hours) Vital Signs Temp Pulse Pulse Resp BP Pulse Ox O2 Del Method 04/01/22 09:58 Room Air 04/01/22 07:38 36.4 C L 60 18 133/79 94 Room Air 04/01/22 07:06 60 04/01/22 03:00 19 04/01/22 04:00 36.0 C L 60 18 131/64 92 Room Air 04/01/22 00:09 76 FiO2 04/01/22 09:58 04/01/22 07:38 04/01/22 07:06 04/01/22 03:00 21 04/01/22 04:00 04/01/22 00:09 PG Care Time/CCT Total # of Minutes Spent Total Time Spent with Patient: Total time spent is greater than 50% in coordination of care (as documented) at patient's floor/unit and/or counseling patient: Coding Level of Care Code 13630 INT INP/OBS CARE 2/55MIN Diagnoses Dizziness R42 Generalized weakness R53.1 Atrial fibrillation, controlled I48.91 H/O cardiac pacemaker Z95.0
[2022-04-01] MEDS: MECLIZINE HCL 25 MG TAB PO SCH ×2 (13:17→21:19)
--- NOTE | 2022-04-01 13:46 | Hospitalist Progress Note ---
Date of Service April 01, 2022 Assessment & Plan (1) Generalized weakness: (2) Dizziness: Plan: Has been complaining of dizziness with changing posture most likely on sitting from lying and standing from sitting position Associated with high blood pressure with headache and sometimes blurred vision No other neurological symptoms and the dizziness is not associated with rapid movements of the neck CT of the head and CTA of the head and neck are unremarkable Additional blood pressure medications have been added We will observe and continue with physical therapy If the dizziness persist will get neurology involved Appreciate neurology input and recommendationtrial of meclizine regularly and then as needed if helps and no need to have any further neuro studies Orthostasis will be checked again Plan Weakness Orthostatic hypotension has been ruled out Patient presents with dizziness/blurry vision associated with change in position from lying to sitting up. Patient denies any chest pain or palpitation. Admitting EKG and troponin WNL. Admitting TSH WNL. Admitting labs fairly WNL. Admitting CTA head and neck and CT Head w/ no acute findings. Viral resp screen neg. Has had PT and OT evaluation and recommended home Continue PT and OT-recommended home Discharge tomorrow Patient has been on diet since February 24 with low-carb/low sugar/low sodium diet and happens to take her as needed Lasix the day prior to arrival which might have triggered her weakness further on the day of arrival. 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 Other chronic medical conditions: HTN, HLD, GERD, JALEN, hypothyroidism, vitamin B12 deficiency, low back pain --- resume home meds as above. DVT prophylaxis: Patient on Eliquis Full code Admission and Anticipated Discharge Date Admission Date: March 29, 2022 Subjective 03/31/2022 The patient was seen and examined in medical telemetry unit She has been complaining of headache associated with dizziness especially following sitting down from lying or standing from sitting down Did feel nauseous initially but no more and she denies any dizziness with rapid movements of the neck She does have orthostatic hypotension while sitting and standing without any other changes with the pulses and she gets symptoms of dizziness sometimes with blurred vision as well No numbness and or tingling involving the extremities and does not have any weakness involving any side of the body 04/01/2022 The patient was seen and examined in medical telemetry unit She has had an episode early this morning She does not have any postural hypotension on examination her other her blood pressure goes up with a standing and sitting Her BP seems to be controlled as of this morning Review of Systems Review of Systems: All systems reviewed and are unremarkable except as noted with Neurologic: Dizziness on sitting down and standing Physical Exam Physical Exam: Sitting on a chair without any acute distress Constitutional: well developed, well nourished and + morbidly obese Eyes: PERRL, conjunctivae normal, anicteric sclerae ENMT: external ear and nose normal, oropharynx normal Neck: trachea midline, no thyromegaly Respiratory: no respiratory distress Auscultation: lungs clear to auscultation bilaterally and + diminished lung sounds Cardiovascular: Rate/Rhythm: regular rate and regular rhythm; not tachycardic Heart Sounds: normal S1 and normal S2; no murmur Gastrointestinal (Abdomen): Inspection/Auscultation: normal bowel sounds; abdomen not distended Percussion/Palpation: abdomen soft; abdomen nontender Musculoskeletal: No acute arthritis involving any of the joint Neurologic: Alert, awake and oriented x3. No focal sensory or motor deficit appreciated Psychiatric: A+Ox3, euthymic affect Lymphatic: no cervical or axillary lymphadenopathy Results & Data Results & Data ([facility]) Vital Signs (Past 12 Hours) Vital Signs Temp Pulse Pulse Resp BP BP Pulse Ox 04/01/22 11:10 36.6 C 60 18 161/98 H 92 04/01/22 11:05 36.6 C 65 18 170/98 H 92 04/01/22 11:00 36.6 C 61 18 166/85 H 92 04/01/22 09:58 04/01/22 07:38 36.4 C L 60 18 133/79 94 04/01/22 07:06 60 04/01/22 03:00 19 04/01/22 04:00 36.0 C L 60 18 131/64 92 O2 Del Method FiO2 04/01/22 11:10 Room Air 04/01/22 11:05 Room Air 04/01/22 11:00 Room Air 04/01/22 09:58 Room Air 04/01/22 07:38 Room Air 04/01/22 07:06 04/01/22 03:00 21 04/01/22 04:00 Room Air Diagnostic Findings Current Inpatient Medications Acetaminophen (Acetaminophen 325 Mg Tab) 650 mg PO Q4H PRN PRN Reason: Mild Pain or Fever Stop: 04/28/22 18:07 Last Admin: 04/01/22 07:47 Dose: 650 mg Al Hydrox/Mg Hydrox/Simethicone (Aluminum/Magnesium Susp 30 Ml Udc) 15 ml PO Q4H PRN PRN Reason: Dyspepsia Stop: 04/28/22 18:07 Last Admin: 03/31/22 21:23 Dose: 15 ml Amiodarone HCl (Am[facility]arone 200 Mg Tab) [facility] Stop: 04/29/22 08:59 Last Admin: 04/01/22 09:03 Dose: 200 mg Amlodipine Besylate (Amlodipine Besylate 5 Mg Tab) 5 mg PO [facility] Stop: 04/30/22 11:59 Last Admin: 04/01/22 09:02 Dose: 5 mg Apixaban (Apixaban 5 Mg Tablet) 5 mg PO BID [facility] Stop: 04/28/22 20:59 Last Admin: 04/01/22 09:03 Dose: 5 mg Aspirin (Aspirin 81 Mg Ectab) 81 mg PO [facility] Stop: 04/29/22 08:59 Last Admin: 04/01/22 09:03 Dose: 81 mg Atorvastatin Calcium (Atorvastatin 40 Mg Tab) 40 mg PO [facility] Stop: 04/28/22 20:59 Last Admin: 03/31/22 21:20 Dose: 40 mg Cyanocobalamin (Cyanocobalamin (B-12) 500 Mcg Tablet) 1,000 mcg [facility] Stop: 04/29/22 08:59 Last Admin: 04/01/22 09:03 Dose: 1,000 mcg Escitalopram Oxalate (Escitalopram Oxalate 20 Mg Tab) 20 mg PO QPM [facility] Stop: 04/28/22 20:59 Last Admin: 03/31/22 21:21 Dose: 20 mg Fluticasone Propionate (Fluticasone Propionate Na Spr 16 Gm Btl) 2 sprays NA DAILY PRN PRN Reason: Congestion Stop: 04/28/22 20:24 Gabapentin (Gabapentin 100 Mg Cap) 100 mg PO BID [facility] Stop: 04/28/22 20:59 Last Admin: 04/01/22 09:03 Dose: 100 mg Levothyroxine Sodium (Levothyroxine Sodium 50 Mcg Tablet) [facility] Stop: 04/29/22 06:29 Last Admin: 04/01/22 06:14 Dose: 50 mcg Losartan Potassium (Losartan Potassium 50 Mg Tab) 100 mg PO QAM [facility] Stop: 04/29/22 08:59 Last Admin: 04/01/22 09:03 Dose: 100 mg Magnesium Hydroxide (Magnesium Hydroxide Susp 30 Ml Udc) 30 ml PO Q12H PRN PRN Reason: Constipation Stop: 04/28/22 18:07 Meclizine HCl (Meclizine Hcl 25 Mg Tab) 25 mg PO TID [facility] Stop: 05/01/22 13:59 Last Admin: 04/01/22 13:17 Dose: 25 mg Metoprolol Succinate (Metoprolol Succ 25mg Ext Rel Tab) 25 mg PO DAILY [facility] Stop: 05/01/22 08:59 Last Admin: 04/01/22 09:02 Dose: 25 mg Oxycodone HCl (Oxycodone Hcl Ir 5 Mg Tab (Immediate Release)) 5 mg PO Q6H PRN PRN Reason: moderate to severe pain Stop: 04/12/22 20:24 Pantoprazole Sodium (Pantoprazole 40 Mg Tab) [facility]; Protocol Stop: 04/28/22 20:59 Last Admin: 04/01/22 09:03 Dose: 40 mg Polyethylene Glycol (Polyethylene (Miralax) 17 Gm Pack) 17 gm PO DAILY PRN PRN Reason: Constipation Stop: 04/28/22 18:07 Senna/Docusate Sodium (Docusate Sodium/Senna 50/8.6mg Tab) 1 tab PO QA PRN PRN Reason: constipation Stop: 04/28/22 20:24
[2022-04-01] MEDS: ATORVASTATIN 40 MG TAB PO SCH (21:18)
[2022-04-01] MEDS: ESCITALOPRAM OXALATE 20 MG TAB PO SCH (21:18)
[2022-04-02] MEDS: LEVOTHYROXINE SODIUM 50 MCG TABLET PO SCH (06:05)
[2022-04-02] MEDS: AMIODARONE 200 MG TAB PO SCH (08:06)
[2022-04-02] MEDS: amLODIPine BESYLATE 5 MG TAB PO SCH (08:06)
[2022-04-02] MEDS: PANTOprazole 40 MG TAB PO SCH ×2 (08:06→21:27)
[2022-04-02] MEDS: CYANOCOBALAMIN (B-12) 500 MCG TABLET PO SCH (08:07)
[2022-04-02] MEDS: APIXABAN 5 MG TABLET PO SCH ×2 (08:07→21:24)
[2022-04-02] MEDS: ASPIRIN 81 MG ECTAB PO SCH (08:07)
[2022-04-02] MEDS: MECLIZINE HCL 25 MG TAB PO SCH ×3 (08:07→21:27)
[2022-04-02] MEDS: GABAPENTIN 100 MG CAP PO SCH ×2 (08:07→21:26)
[2022-04-02] MEDS: LOSARTAN POTASSIUM 50 MG TAB PO SCH (08:07)
[2022-04-02] MEDS: METOPROLOL SUCC 25MG EXT REL TAB PO SCH (08:09)
[2022-04-02] MEDS ORDERED: PROMETHAZINE HCL 12.5 MG in SODIUM CHLORIDE 0.9% 50 ML IV PRN (09:04)
--- NOTE | 2022-04-02 11:02 | Neurology Progress Note ---
Date of Service April 02, 2022 Assessment & Plan (1) Dizziness: (2) Generalized weakness: (3) Atrial fibrillation, controlled: (4) H/O cardiac pacemaker: Plan Patient has had the new onset of positional "dizziness". As she describes it and we examined her, I think this is more a vertiginous sensation and this is a positional vertigo. I do not believe this represents lightheadedness and she does not drop her pressure was sitting or standing. Patient has some left ear pain. Her left TMJ is mildly tender. She has a sense of generalized weakness but she has no specific weakness on examination. She has no other focal neurologic findings, meningeal signs, or encephalopathy. Three has a history of atrial fibrillation which is rate controlled and she has a pacemaker for tachy-jess syndrome. The patient brought identifying information for her pacemaker to see if it is MRI compatible. Nevertheless, I do not believe she had a stroke. Recommendations: 1. check blood pressure and pulse lying, sitting, and standing. 2. see if the pacemaker is MRI compatible I would obtain an MRI of the brain with without contrast, with attention to the left inner ear. 3. Continue with meclizine as needed. 4. Increase activity and consider physical and occupational therapy. Overall, I spent a total of 35 minutes with this case including review of records, direct evaluation the patient at bedside, and discussion of the case with the patient and RN at bedside, and Dr. Kwan including differential diagnosis and treatment options. Admission and Anticipated Discharge Date Admission Date: March 29, 2022 Subjective The patient believes that meclizine helps her dizziness but she has considerable nausea this morning. She has not had any vomiting. She does not have abdominal pain. She has some left ear pain that started this morning and points to inside the canal as the origin. Blood pressure is 165/76, and she remains afebrile Results & Data ([facility]) Vital Signs (Past 12 Hours) Vital Signs Temp Pulse Pulse Pulse Resp BP BP 04/02/22 08:13 36.3 C L 65 20 165/76 H 04/02/22 08:07 61 04/02/22 04:14 38 L 13 04/02/22 02:57 65 20 148/78 H 04/01/22 23:36 60 04/01/22 23:33 60 18 123/56 L 04/01/22 23:27 60 19 Pulse Ox O2 Del Method FiO2 04/02/22 08:13 99 Room Air 04/02/22 08:07 04/02/22 04:14 93 21 04/02/22 02:57 95 BiPAP 04/01/22 23:36 04/01/22 23:33 95 BiPAP 04/01/22 23:27 94 21 Exam (Neuro) Physical Exam: she is awake and alert. Speech is without aphasia or dysarthria. Mood and affect are normal appropriate. Thought processes are intact to conversation Extraocular eye muscles are intact lying in bed. When she sits up, she does feel somewhat vertiginous and she has 1 or 2 beats of nystagmus with left gaze, much like yesterday. Her balance is reasonable sitting up and legs dangling. Coordination is normal in the arms without tremor or ataxia. Strength seems symmetrical in the limbs. PG Care Time/CCT Total # of Minutes Spent Total Time Spent with Patient: Total time spent is greater than 50% in coordination of care (as documented) at patient's floor/unit and/or counseling patient: Coding Level of Care Code 43248 SUB INP/OBS CARE 2/35MIN Diagnoses Dizziness R42 Generalized weakness R53.1 Atrial fibrillation, controlled I48.91 H/O cardiac pacemaker Z95.0 Time Spent (min) 35
[2022-04-02] MEDS: DICLOFENAC SOD 1% GEL 100 GM TUBE EXT SCH ×2 (13:34→21:25)
--- NOTE | 2022-04-02 17:04 | Hospitalist Progress Note ---
Date of Service April 02, 2022 Assessment & Plan (1) Generalized weakness: (2) Dizziness: Plan: Has been complaining of dizziness with changing posture most likely on sitting from lying and standing from sitting position Associated with high blood pressure with headache and sometimes blurred vision No other neurological symptoms and the dizziness is not associated with rapid movements of the neck CT of the head and CTA of the head and neck are unremarkable Additional blood pressure medications have been added We will observe and continue with physical therapy If the dizziness persist will get neurology involved Appreciate neurology input and recommendationtrial of meclizine regularly and then as needed if helps and no need to have any further neuro studies Orthostasis will be checked again Still having dizziness minimal improvement with meclizine Will have MRI with and without contrast tomorrow Plan Weakness Orthostatic hypotension has been ruled out Patient presents with dizziness/blurry vision associated with change in position from lying to sitting up. Patient denies any chest pain or palpitation. Admitting EKG and troponin WNL. Admitting TSH WNL. Admitting labs fairly WNL. Admitting CTA head and neck and CT Head w/ no acute findings. Viral resp screen neg. Has had PT and OT evaluation and recommended home Continue PT and OT-recommended home Likely discharge following MRI tomorrow Patient has been on diet since February 24 with low-carb/low sugar/low sodium diet and happens to take her as needed Lasix the day prior to arrival which might have triggered her weakness further on the day of arrival. 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 Other chronic medical conditions: HTN, HLD, GERD, JALEN, hypothyroidism, vitamin B12 deficiency, low back pain --- resume home meds as above. DVT prophylaxis: Patient on Eliquis Full code Admission and Anticipated Discharge Date Admission Date: March 29, 2022 Subjective 03/31/2022 The patient was seen and examined in medical telemetry unit She has been complaining of headache associated with dizziness especially following sitting down from lying or standing from sitting down Did feel nauseous initially but no more and she denies any dizziness with rapid movements of the neck She does have orthostatic hypotension while sitting and standing without any other changes with the pulses and she gets symptoms of dizziness sometimes with blurred vision as well No numbness and or tingling involving the extremities and does not have any weakness involving any side of the body 04/01/2022 The patient was seen and examined in medical telemetry unit She has had an episode early this morning She does not have any postural hypotension on examination her other her blood pressure goes up with a standing and sitting Her BP seems to be controlled as of this morning 04/02/2022 The patient was seen and examined in medical telemetry unit She has been complaining of left earache and pain in the face She has had more dizziness this morning Review of Systems Review of Systems: All systems reviewed and are unremarkable except as noted with Neurologic: Dizziness on sitting down and standing Physical Exam Physical Exam: Sitting on a chair without any acute distress Constitutional: well developed, well nourished and + morbidly obese Eyes: PERRL, conjunctivae normal, anicteric sclerae ENMT: external ear and nose normal, oropharynx normal Neck: trachea midline, no thyromegaly Respiratory: no respiratory distress Auscultation: lungs clear to auscultation bilaterally and + diminished lung sounds Cardiovascular: Rate/Rhythm: regular rate and regular rhythm; not tachycardic Heart Sounds: normal S1 and normal S2; no murmur Gastrointestinal (Abdomen): Inspection/Auscultation: normal bowel sounds; abdomen not distended Percussion/Palpation: abdomen soft; abdomen nontender Musculoskeletal: No acute arthritis involving any joint. Left TMJ joint seems to be inflamed Neurologic: normal touch/pain/proprioception; + does not move all extremities and no focal motor deficits Psychiatric: A+Ox3, euthymic affect Lymphatic: no cervical or axillary lymphadenopathy Results & Data Results & Data ([facility]) Vital Signs (Past 12 Hours) Vital Signs Temp Pulse Pulse Pulse Resp BP Pulse Ox 04/02/22 16:20 62 04/02/22 15:56 36.6 C 53 L 19 163/73 H 96 04/02/22 09:00 60 04/02/22 09:00 04/02/22 11:51 36.6 C 60 20 128/75 94 04/02/22 08:13 36.3 C L 65 20 165/76 H 99 04/02/22 08:07 61 O2 Del Method 04/02/22 16:20 04/02/22 15:56 Room Air 04/02/22 09:00 04/02/22 09:00 Room Air, CPAP 04/02/22 11:51 Room Air 04/02/22 08:13 Room Air 04/02/22 08:07 Medications Administered Current Inpatient Medications Acetaminophen (Acetaminophen 325 Mg Tab) 650 mg PO Q4H PRN PRN Reason: Mild Pain or Fever Stop: 04/28/22 18:07 Last Admin: 04/01/22 15:49 Dose: 650 mg Al Hydrox/Mg Hydrox/Simethicone (Aluminum/Magnesium Susp 30 Ml Udc) 15 ml PO Q4H PRN PRN Reason: Dyspepsia Stop: 04/28/22 18:07 Last Admin: 03/31/22 21:23 Dose: 15 ml Amiodarone HCl (Amiodarone 200 Mg Tab) 200 mg PO [facility] Stop: 04/29/22 08:59 Last Admin: 04/02/22 08:06 Dose: 200 mg Amlodipine Besylate (Amlodipine Besylate 5 Mg Tab) 5 mg PO [facility] Stop: 04/30/22 11:59 Last Admin: 04/02/22 08:06 Dose: 5 mg Apixaban (Apixaban 5 Mg Tablet) 5 mg PO BID [facility] Stop: 04/28/22 20:59 Last Admin: 04/02/22 08:07 Dose: 5 mg Aspirin (Aspirin 81 Mg Ectab) 81 mg PO [facility] Stop: 04/29/22 08:59 Last Admin: 04/02/22 08:07 Dose: 81 mg Atorvastatin Calcium (Atorvastatin 40 Mg Tab) 40 mg PO HS [facility] Stop: 04/28/22 20:59 Last Admin: 04/01/22 21:18 Dose: 40 mg Cyanocobalamin (Cyanocobalamin (B-12) 500 Mcg Tablet) 1,000 mcg PO [facility] Stop: 04/29/22 08:59 Last Admin: 04/02/22 08:07 Dose: 1,000 mcg Diclofenac Sodium (Diclofenac Sod 1% Gel 100 Gm Tube) 1 gm EXT TID [facility]; Protocol Stop: 05/02/22 13:59 Last Admin: 04/02/22 13:34 Dose: 1 gm Escitalopram Oxalate (Escitalopram Oxalate 20 Mg Tab) 20 mg PO QPM [facility] Stop: 04/28/22 20:59 Last Admin: 04/01/22 21:18 Dose: 20 mg Fluticasone Propionate (Fluticasone Propionate Na Spr 16 Gm Btl) 2 sprays NA DAILY PRN PRN Reason: Congestion Stop: 04/28/22 20:24 Gabapentin (Gabapentin 100 Mg Cap) 100 mg PO BID [facility] Stop: 04/28/22 20:59 Last Admin: 04/02/22 08:07 Dose: 100 mg Promethazine HCl 12.5 mg/ (Sodium Chloride) 50.5 mls @ 202 mls/hr IV Q6H PRN PRN Reason: Nausea And Vomiting Stop: 05/02/22 09:03 Last Infusion: 04/02/22 12:10 Dose: Infused Levothyroxine Sodium (Levothyroxine Sodium 50 Mcg Tablet) 50 mcg PO DAILYBB [facility] Stop: 04/29/22 06:29 Last Admin: 04/02/22 06:05 Dose: 50 mcg Losartan Potassium (Losartan Potassium 50 Mg Tab) 100 mg PO QAM [facility] Stop: 04/29/22 08:59 Last Admin: 04/02/22 08:07 Dose: 100 mg Magnesium Hydroxide (Magnesium Hydroxide Susp 30 Ml Udc) 30 ml PO Q12H PRN PRN Reason: Constipation Stop: 04/28/22 18:07 Meclizine HCl (Meclizine Hcl 25 Mg Tab) 25 mg PO TID [facility] Stop: 05/01/22 13:59 Last Admin: 04/02/22 13:34 Dose: 25 mg Metoprolol Succinate (Metoprolol Succ 25mg Ext Rel Tab) 25 mg PO DAILY [facility] Stop: 05/01/22 08:59 Last Admin: 04/02/22 08:09 Dose: 25 mg Oxycodone HCl (Oxycodone Hcl Ir 5 Mg Tab (Immediate Release)) 5 mg PO Q6H PRN PRN Reason: moderate to severe pain Stop: 04/12/22 20:24 Pantoprazole Sodium (Pantoprazole 40 Mg Tab) 40 mg PO [facility]; Protocol Stop: 04/28/22 20:59 Last Admin: 04/02/22 08:06 Dose: 40 mg Polyethylene Glycol (Polyethylene (Miralax) 17 Gm Pack) 17 gm PO DAILY PRN PRN Reason: Constipation Stop: 04/28/22 18:07 Senna/Docusate Sodium (Docusate Sodium/Senna 50/8.6mg Tab) 1 tab PO QAM PRN PRN Reason: constipation Stop: 04/28/22 20:24
[2022-04-02] MEDS: ESCITALOPRAM OXALATE 20 MG TAB PO SCH (21:26)
[2022-04-02] MEDS: ATORVASTATIN 40 MG TAB PO SCH (21:28)
[2022-04-02] MEDS: ACETAMINOPHEN 325 MG TAB PO PRN (21:29)
[2022-04-03] MEDS: LEVOTHYROXINE SODIUM 50 MCG TABLET PO SCH (05:43)
[2022-04-03] MEDS: METOPROLOL SUCC 25MG EXT REL TAB PO SCH (08:04)
[2022-04-03] MEDS: ASPIRIN 81 MG ECTAB PO SCH (08:04)
[2022-04-03] MEDS: DICLOFENAC SOD 1% GEL 100 GM TUBE EXT SCH ×2 (08:04→14:02)
[2022-04-03] MEDS: APIXABAN 5 MG TABLET PO SCH (08:04)
[2022-04-03] MEDS: MECLIZINE HCL 25 MG TAB PO SCH ×2 (08:04→14:02)
[2022-04-03] MEDS: CYANOCOBALAMIN (B-12) 500 MCG TABLET PO SCH (08:04)
[2022-04-03] MEDS: AMIODARONE 200 MG TAB PO SCH (08:05)
[2022-04-03] MEDS: LOSARTAN POTASSIUM 50 MG TAB PO SCH (08:05)
[2022-04-03] MEDS: PANTOprazole 40 MG TAB PO SCH (08:05)
[2022-04-03] MEDS: GABAPENTIN 100 MG CAP PO SCH (08:05)
[2022-04-03] MEDS: amLODIPine BESYLATE 5 MG TAB PO SCH (08:05)
--- NOTE | 2022-04-03 08:53 | Neurology Progress Note ---
Date of Service April 03, 2022 Assessment & Plan (1) Dizziness: (2) Generalized weakness: (3) Atrial fibrillation, controlled: (4) H/O cardiac pacemaker: Plan Patient had the new onset of positional "dizziness" March 27. she was getting vertiginous sensations with position change and this is consistent with a BPPV. she was not getting lightheaded and she had no evidence of orthostasis. Currently she is doing much better clinically is asymptomatic except for some left ear pain. She also some tenderness of her left masseter muscle She had a sense of generalized weakness but had no specific weakness on examination. She has no other focal neurologic findings, meningeal signs, or encephalopathy. She has a history of atrial fibrillation which is rate controlled and she has a pacemaker for tachy-jess syndrome. apparently, the pacemaker is MRI Recommendations: 1. awaiting MRI of the brain with/without contrast, attention to the left inner ear. 2. Continue with meclizine as needed. 3. Increase activity and consider physical and occupational therapy. 4. Otherwise, I have no further neurologic testing or treatment recommendations to make. Please contact me if I can be of further clarification this case. I could follow up as an outpatient, if desired, in 2-3 weeks with PA Overall, I spent a total of 35 minutes with this case including review of records, direct evaluation the patient at bedside, and discussion of the case with the patient and RN at bedside, and Dr. Kwan including differential diagnosis and treatment options. Admission and Anticipated Discharge Date Admission Date: March 29, 2022 Subjective Patient has no complaint of dizziness, ringing in her ears, hearing loss, or nausea. She does have some left ear pain still. Nursing reports no new events or issues. Blood pressure is 136/72 and she is afebrile. apparently, her pacemaker is MRI compatible and she will be given an MRI later this morning. Results & Data ([facility]) Vital Signs (Past 12 Hours) Vital Signs Temp Pulse Pulse Resp BP BP Pulse Ox 04/03/22 07:36 36.4 C L 62 18 136/72 93 04/03/22 07:20 66 04/03/22 03:29 60 15 93 04/03/22 02:41 35.8 C L 60 20 136/69 93 04/03/22 01:05 60 04/02/22 22:57 36.5 C 60 18 160/72 H 93 04/02/22 23:07 65 21 94 04/02/22 21:35 O2 Del Method FiO2 04/03/22 07:36 Room Air 04/03/22 07:20 04/03/22 03:29 21 04/03/22 02:41 CPAP 04/03/22 01:05 04/02/22 22:57 Room Air 04/02/22 23:07 21 04/02/22 21:35 Room Air, CPAP Exam (Neuro) Physical Exam: She is awake and alert. Speech is without aphasia or dysarthria. Mood is normal and affect is appropriate. Thought processes are intact conversation. She is resting comfortably in bed. Extraocular muscles are intact nystagmus. There is no facial droop. Coordination is normal in the arms without tremor or ataxia. PG Care Time/CCT Total # of Minutes Spent Total Time Spent with Patient: Total time spent is greater than 50% in coordination of care (as documented) at patient's floor/unit and/or counseling patient: Coding Level of Care Code 94314 SUB INP/OBS CARE 2/35MIN Diagnoses Dizziness R42 Generalized weakness R53.1 Atrial fibrillation, controlled I48.91 H/O cardiac pacemaker Z95.0
[2022-04-03] MEDS ORDERED: LORazepam 2 MG/1 ML VIAL IV STA (11:32)
--- NOTE | 2022-04-03 11:54 | Hospitalist Progress Note ---
Date of Service April 03, 2022 Assessment & Plan (1) Generalized weakness: (2) Dizziness: Plan: Has been complaining of dizziness with changing posture most likely on sitting from lying and standing from sitting position Associated with high blood pressure with headache and sometimes blurred vision No other neurological symptoms and the dizziness is not associated with rapid movements of the neck CT of the head and CTA of the head and neck are unremarkable Additional blood pressure medications have been added We will observe and continue with physical therapy If the dizziness persist will get neurology involved Appreciate neurology input and recommendationtrial of meclizine regularly and then as needed if helps and no need to have any further neuro studies Orthostasis will be checked again-no orthostasis Dizziness is almost gone and complains of left ear pain Will have MRI and if unremarkable she will be going home this afternoon Plan Weakness Orthostatic hypotension has been ruled out Patient presents with dizziness/blurry vision associated with change in position from lying to sitting up. Patient denies any chest pain or palpitation. Admitting EKG and troponin WNL. Admitting TSH WNL. Admitting labs fairly WNL. Admitting CTA head and neck and CT Head w/ no acute findings. Viral resp screen neg. Has had PT and OT evaluation and recommended home Continue PT and OT-recommended home Denies any more dizziness with ambulation Patient has been on diet since February 24 with low-carb/low sugar/low sodium diet and happens to take her as needed Lasix the day prior to arrival which might have triggered her weakness further on the day of arrival. Continue to monitor over telemetry, will get orthostatic vitals q shift, patient advised to increase her diet, bench worker hollow handle consult for help with weight loss program plan. Other chronic medical conditions: HTN, HLD, GERD, JALEN, hypothyroidism, vitamin B12 deficiency, low back pain --- resume home meds as above. DVT prophylaxis: Patient on Eliquis Full code Admission and Anticipated Discharge Date Admission Date: March 29, 2022 Subjective 03/31/2022 The patient was seen and examined in medical telemetry unit She has been complaining of headache associated with dizziness especially following sitting down from lying or standing from sitting down Did feel nauseous initially but no more and she denies any dizziness with rapid movements of the neck She does have orthostatic hypotension while sitting and standing without any other changes with the pulses and she gets symptoms of dizziness sometimes with blurred vision as well No numbness and or tingling involving the extremities and does not have any weakness involving any side of the body 04/01/2022 The patient was seen and examined in medical telemetry unit She has had an episode early this morning She does not have any postural hypotension on examination her other her blood pressure goes up with a standing and sitting Her BP seems to be controlled as of this morning 04/02/2022 The patient was seen and examined in medical telemetry unit She has been complaining of left earache and pain in the face She has had more dizziness this morning 04/03/2022 The patient was seen and examined in medical telemetry unit She has been complaining of left ear pain but does not have any more dizziness No nausea and or vomiting She will have MRI and if unremarkable she will be discharged home this afternoon Review of Systems Review of Systems: All systems reviewed and are unremarkable except as noted with Neurologic: Dizziness on sitting down and standing Physical Exam Physical Exam: Sitting on a chair without any acute distress Constitutional: well developed, well nourished and + morbidly obese Eyes: PERRL, conjunctivae normal, anicteric sclerae ENMT: external ear and nose normal, oropharynx normal Neck: trachea midline, no thyromegaly Respiratory: no respiratory distress Auscultation: lungs clear to auscultation bilaterally and + diminished lung sounds Cardiovascular: Rate/Rhythm: regular rate and regular rhythm; not tachycardic Heart Sounds: normal S1 and normal S2; no murmur Gastrointestinal (Abdomen): Inspection/Auscultation: normal bowel sounds; abdomen not distended Percussion/Palpation: abdomen soft; abdomen nontender Musculoskeletal: No acute arthritis involving any joint Neurologic: normal touch/pain/proprioception; + does not move all extremities and no focal motor deficits Psychiatric: A+Ox3, euthymic affect Lymphatic: no cervical or axillary lymphadenopathy Results & Data Results & Data ([facility]) Vital Signs (Past 12 Hours) Vital Signs Temp Pulse Pulse Resp BP BP Pulse Ox 04/03/22 11:45 36.4 C L 66 18 120/64 96 04/03/22 08:15 04/03/22 07:36 36.4 C L 62 18 136/72 93 04/03/22 07:20 66 04/03/22 03:29 60 15 93 04/03/22 02:41 35.8 C L 60 20 136/69 93 04/03/22 01:05 60 O2 Del Method FiO2 04/03/22 11:45 Room Air 04/03/22 08:15 Room Air, CPAP 04/03/22 07:36 Room Air 04/03/22 07:20 04/03/22 03:29 21 04/03/22 02:41 CPAP 04/03/22 01:05 Medications Administered Current Inpatient Medications Acetaminophen (Acetaminophen 325 Mg Tab) 650 mg PO Q4H PRN PRN Reason: Mild Pain or Fever Stop: 04/28/22 18:07 Last Admin: 04/02/22 21:29 Dose: 650 mg Al Hydrox/Mg Hydrox/Simethicone (Aluminum/Magnesium Susp 30 Ml Udc) 15 ml PO Q4H PRN PRN Reason: Dyspepsia Stop: 04/28/22 18:07 Last Admin: 03/31/22 21:23 Dose: 15 ml Amiodarone HCl (Amiodarone 200 Mg Tab) [facility]: 04/29/22 08:59 Last Admin: 04/03/22 08:05 Dose: 200 mg Amlodipine Besylate (Amlodipine Besylate 5 Mg Tab) [facility] Stop: 04/30/22 11:59 Last Admin: 04/03/22 08:05 Dose: 5 mg Apixaban (Apixaban 5 Mg Tablet) 5 mg PO BID [facility] Stop: 04/28/22 20:59 Last Admin: 04/03/22 08:04 Dose: 5 mg Aspirin (Aspirin 81 Mg Ectab) [facility] Stop: 04/29/22 08:59 Last Admin: 04/03/22 08:04 Dose: 81 mg Atorvastatin Calcium (Atorvastatin 40 Mg Tab) 40 mg PO [facility] Stop: 04/28/22 20:59 Last Admin: 04/02/22 21:28 Dose: 40 mg Cyanocobalamin (Cyanocobalamin (B-12) 500 Mcg Tablet) 1,000 mcg [facility] Stop: 04/29/22 08:59 Last Admin: 04/03/22 08:04 Dose: 1,000 mcg Diclofenac Sodium (Diclofenac Sod 1% Gel 100 Gm Tube) 1 gm EXT TID [facility]; Protocol Stop: 05/02/22 13:59 Last Admin: 04/03/22 08:04 Dose: 1 gm Escitalopram Oxalate (Escitalopram Oxalate 20 Mg Tab) 20 mg PO QPM [facility] Stop: 04/28/22 20:59 Last Admin: 04/02/22 21:26 Dose: 20 mg Fluticasone Propionate (Fluticasone Propionate Na Spr 16 Gm Btl) 2 sprays NA DAILY PRN PRN Reason: Congestion Stop: 04/28/22 20:24 Gabapentin (Gabapentin 100 Mg Cap) 100 mg PO BID [facility] Stop: 04/28/22 20:59 Last Admin: 04/03/22 08:05 Dose: 100 mg Promethazine HCl 12.5 mg/ (Sodium Chloride) 50.5 mls @ 202 mls/hr IV Q6H PRN PRN Reason: Nausea And Vomiting Stop: 05/02/22 09:03 Last Infusion: 04/02/22 12:10 Dose: Infused Levothyroxine Sodium (Levothyroxine Sodium 50 Mcg Tablet) 50 mcg PO DAILYBB [facility] Stop: 04/29/22 06:29 Last Admin: 04/03/22 05:43 Dose: 50 mcg Losartan Potassium (Losartan Potassium 50 Mg Tab) 100 mg PO QAM [facility] Stop: 04/29/22 08:59 Last Admin: 04/03/22 08:05 Dose: 100 mg Magnesium Hydroxide (Magnesium Hydroxide Susp 30 Ml Udc) 30 ml PO Q12H PRN PRN Reason: Constipation Stop: 04/28/22 18:07 Meclizine HCl (Meclizine Hcl 25 Mg Tab) 25 mg PO TID [facility] Stop: 05/01/22 13:59 Last Admin: 04/03/22 08:04 Dose: 25 mg Metoprolol Succinate (Metoprolol Succ 25mg Ext Rel Tab) 25 mg PO DAILY [facility] Stop: 05/01/22 08:59 Last Admin: 04/03/22 08:04 Dose: 25 mg Oxycodone HCl (Oxycodone Hcl Ir 5 Mg Tab (Immediate Release)) 5 mg PO Q6H PRN PRN Reason: moderate to severe pain Stop: 04/12/22 20:24 Pantoprazole Sodium (Pantoprazole 40 Mg Tab) 40 mg PO [facility]; Protocol Stop: 04/28/22 20:59 Last Admin: 04/03/22 08:05 Dose: 40 mg Polyethylene Glycol (Polyethylene (Miralax) 17 Gm Pack) 17 gm PO DAILY PRN PRN Reason: Constipation Stop: 04/28/22 18:07 Senna/Docusate Sodium (Docusate Sodium/Senna 50/8.6mg Tab) 1 tab PO QAM PRN PRN Reason: constipation Stop: 04/28/22 20:24
[2022-04-03] MEDS ORDERED: GADOBUTROL 65ML VIAL IV ONE (12:27)
--- NOTE | 2022-04-03 12:58 | Magnetic Resonance Report ---
MR brain wo/w con CLINICAL HISTORY: r/o tempero-pontine lesion TECHNIQUE: Multiplanar and multisequence MR images of the brain were obtained prior to and following administration of gadolinium contrast. Comparison: None available at the time of this dictation. FINDINGS: No abnormal restricted diffusion is identified. The white matter is unremarkable. The ventricular sys tem is normal in appearance. No mass or abnormal enhancement is seen. There is no mass effect or midl ine shift. There is no evidence of acute intraparenchymal hemorrhage. No extra axial fluid collection s are seen. The corpus callosum, pituitary gland, and cerebellar tonsils appear grossly unremarkable. Flow voids of the major intracranial arterial vessels are identified. The imaged portions of the para nasal sinuses, mastoid air cells, and orbits are unremarkable. IMPRESSION: No acute abnormality is seen in particular there is no evidence of temporopontine lesion. ACT 112: Negative or not required by law. Electronically signed by: Lionel Manzo M.D. 04/03/2022 12:56 PM
--- NOTE | 2022-04-03 17:20 | Discharge Summary ---
Date of Service April 03, 2022 Admission HPI Per Admitting Provider 71-year-old lady with PMH of HTN, HLD, hypothyroidism, JALEN on CPAP, paroxysmal A-fib and PE on Eliquis, CAD, stress-induced cardiomyopathy, old FL, cardiac pacemaker in situ, lumbosacral radiculopathy presented to the ED 03/29 with complaint of generalized weakness and dizziness associated with double vision. Patient reported being lightheaded associated with inability to focus/weakness after she woke up in the morning since last 3 days for which she needed to sit at the edge of the bed for 5 minutes and it would slowly go away and would get better as the days went by. This happened today morning as well. And later around 12 noon, she was lying down on the recliner and she sat up to answer the phone call from her sister and at that point she had again dizziness but this time more severe and is associated with double vision, and tingling sensation and generalized weakness throughout the body. No focal weakness. Patient denies any fever or flulike illness or diarrhea or increased urinary frequency or decreased fluid intake in the recent past. Patient denies any medication changes in the recent past but patient happened to take her as needed Lasix yesterday. Lasix dose prior to yesterday was 1 week before. Also patient stated that she has been on diet since February 24 of this year with a goal to lose weight, she cannot perform exercise due to lower back pain. She has lost 23 pounds since February 24 per her. Her regular diet looks like: Banana x1, pork chop and a small serving of salad per day. Patient denies any chest pain or palpitation or sore throat or cough or headache or dizziness with change in the position of the head while lying flat or belly pain or other review of symptoms. Patient denies smoking or use of alcohol or recreational drugs. Full code Medications reviewed with the patient at bedside. Plan of care discussed with the patient, she voiced understanding. Admission Exam Per Admitting Provider Physical Exam: GENERAL: Alert and oriented x3. NAD, on RA. Obese class III. HEENT: No pallor, no icterus. Pupils equal, round and reactive to light. Oral mucosa moist. NECK: No JVD, no neck masses. HEART: S1 and S2 heard. Regular rate and rhythm. No murmur, no gallop. RESPIRATORY SYSTEM: Normal AP diameter. No accessory muscle use. No wheezing, no crackles. ABDOMEN: Soft, bowel sounds present, nontender, no distention. CENTRAL NERVOUS SYSTEM: No facial droop. Speech is clear. Obeys simple commands. Moves extremities. EXTREMITIES: No edema, no erythema seen. Principal Diagnosis Dizziness, generalized weakness, hypertension, JALEN, hypothyroidism Discharge Exam Sitting on a chair without any acute distress Constitutional well developed, well nourished and + morbidly obese Eyes PERRL, conjunctivae normal, anicteric sclerae ENMT external ear and nose normal, oropharynx normal Neck trachea midline, no thyromegaly Respiratory no respiratory distress Auscultation: lungs clear to auscultation bilaterally and + diminished lung sounds Cardiovascular Rate/Rhythm: regular rate and regular rhythm; not tachycardic Heart Sounds: normal S1 and normal S2; no murmur Gastrointestinal (Abdomen) Inspection/Auscultation: normal bowel sounds; abdomen not distended Percussion/Palpation: abdomen soft; abdomen nontender Neurologic normal touch/pain/proprioception; + does not move all extremities and no focal motor deficits Psychiatric A+Ox3, euthymic affect Lymphatic no cervical or axillary lymphadenopathy Discharge Data Allergies Allergy/AdvReac Type Severity Reaction Status Date / Time celecoxib Allergy Intermediate Hives Verified 03/29/22 16:17 latex Allergy Intermediate RASH Verified 03/29/22 16:17 lisinopril AdvReac Intermediate Cough Verified 03/29/22 16:17 Consultations 03/29/22 17:45 ED Decision to Admit Stat 04/01/22 10:01 Consult Neurology Routine Ordered Studies 03/29/22 13:46 CT angio head w con Stat CT angio neck with con Stat 03/29/22 13:47 CT head/brain wo con Stat 04/03/22 11:45 MR brain wo/w con Urgent Hospital Course (1) Generalized weakness: (2) Dizziness: Has been complaining of dizziness with changing posture most likely on sitting from lying and standing from sitting position Associated with high blood pressure with headache and sometimes blurred vision No other neurological symptoms and the dizziness is not associated with rapid movements of the neck CT of the head and CTA of the head and neck are unremarkable Additional blood pressure medications have been added We will observe and continue with physical therapy If the dizziness persist will get neurology involved Appreciate neurology input and recommendationtrial of meclizine regularly and then as needed if helps and no need to have any further neuro studies Orthostasis will be checked again-no orthostasis Dizziness is almost gone and complains of left ear pain Will have MRI and if unremarkable she will be going home this afternoon Plan Weakness Orthostatic hypotension has been ruled out Patient presents with dizziness/blurry vision associated with change in position from lying to sitting up. Patient denies any chest pain or palpitation. Admitting EKG and troponin WNL. Admitting TSH WNL. Admitting labs fairly WNL. Admitting CTA head and neck and CT Head w/ no acute findings. Viral resp screen neg. Has had PT and OT evaluation and recommended home Continue PT and OT-recommended home Denies any more dizziness with ambulation Patient has been on diet since February 24 with low-carb/low sugar/low sodium diet and happens to take her as needed Lasix the day prior to arrival which might have triggered her weakness further on the day of arrival. 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 Other chronic medical conditions: HTN, HLD, GERD, JALEN, hypothyroidism, vitamin B12 deficiency, low back pain --- resume home meds as above. DVT prophylaxis: Patient on Eliquis Full code Total Time Total Time Spent Total Time Spent (In Minutes): 35 minutes Discharge Plan Discharge Items Patient Disposition: Home - Self-Care Reason For Visit: DIZZINESS Discharge Diagnosis: Dizziness, generalized weakness, hypertension, JALEN, hypothyroidism Condition on Discharge: Good Activity: Resume your previous activity Non-emergency contact: Primary Care Provider Call non-emergency contact if: you have any medication questions and your symptoms worsen Follow-up/Referrals: Irish Richard DO [Primary Care Provider] - (Date & Time 04/08/2022 11:20 AM Provider Naveed Peters MD [facility] ) Diet: Heart Healthy and Low Sodium (2gm) Addtl Attending Provider Instructions: Please take precautions to avoid fall Take your medications as advised Take meclizine as needed for dizziness Please give appointments with your healthcare providers Pending Studies at Discharge: No Stand-Alone Forms: My [employer], Smoking Cessation Medications and DC Order Prescriptions: New amlodipine [Norvasc] 5 mg Tablet 5 mg PO QAM 30 Days Qty: 30 0RF meclizine 25 mg Tablet 25 mg PO TID Qty: 30 0RF diclofenac sodium [Voltaren Arthritis Pain] 1 % Gel 1 g EXT TID Qty: 30 0RF Continued aspirin [Vonda Low Dose Aspirin] 81 mg Tablet,Delayed Release (Dr/Ec) 81 mg PO QAM acetaminophen 325 mg Tablet 2 tab PO Q6H PRN (Reason: Pain) cholecalciferol (vitamin D3) 1,000 unit Capsule 1,000 units PO QAM cyanocobalamin (vitamin B-12) 1,000 mcg Tablet, Sublingual 1,000 mcg SUBLINGUAL QAM losartan 100 mg Tablet 100 mg PO QAM atorvastatin [Lipitor] 40 mg Tablet 40 mg PO HS amiodarone 200 mg tablet 200 mg PO QAM metoprolol succinate 25 mg tablet extended release 24 hr 25 mg PO QAM escitalopram oxalate 20 mg tablet 20 mg PO QPM Eliquis 5 mg Tablet 5 mg PO BID Qty: 60 0RF sennosides-docusate sodium [Senokot-S] 8.6-50 mg Tablet 1 tab PO QAM PRN (Reason: constipation) Qty: 30 0RF omeprazole 20 mg capsule,delayed release(DR/EC) 40 mg PO AMHS Qty: 30 0RF acetaminophen 325 mg Tablet 650 mg PO Q4H PRN (Reason: pain) Qty: 30 0RF gabapentin 100 mg Capsule 100 mg PO BID Qty: 60 0RF oxycodone 5 mg tablet 5 mg PO Q6H PRN (Reason: pain) Qty: 10 0RF levothyroxine 50 mcg tablet 50 mcg PO DAILYBB fluticasone propionate 50 mcg/actuation [place],Suspension 2 spray INTRANASAL DAILY PRN (Reason: Congestion) furosemide [Lasix] 20 mg tablet 20 mg PO DAILY PRN (Reason: edema) Qty: 10 0RF Discontinued amlodipine 2.5 mg Tablet 2.5 mg PO QAM Discharge Orders: Discharge Order (Routine); Ordered 04/03/22 Ordered By: Deniz Kwan Admission Data Admit Date/Time: 03/29/22 18:09 Attending Provider: Deniz Kwan Admit Provider: Philipp Arrington Primary Care Provider: Irish Richard Other Providers: Philipp Arrington ; Yoan Sandhu ; Waldo Cordero ; Chloe Stahl ; Jeff Hassan ; Chloe Christopher ; Santana Jason ; Marck Alford ; Dinah Abraham ; Jeff Ferrara ; Doni Francisco Other Interventions: Discharge Summary Assessment (RN) Last Done: 04/03/22 15:27
== END 2022-04-03 15:42 | disposition home or self-care (01) | DRG 149 ==
LOC: ED 13:06 → 2N 18:09 → SUATTDRO 18:09 → 2N 19:51

== ENCOUNTER 2024-06-16 14:00 | Inpatient (IN) ==
--- NOTE | 2024-06-16 14:39 | Emergency Department Note ---
Impression & Plan Hypoxia, Acute hip pain, Back pain ED Provider Note NAME: JAN ADAM AGE: 73 SEX: F : 1950 ARRIVES VIA: Walk-In INFORMANT: Patient ED PROVIDER(S): Terence Maldonado DO CHIEF COMPLAINT: Back pain HPI: Patient is a 73-year-old female who presents to the ER with a past medical history of hypertension, GI bleed, pacemaker for left lower back pain which radiates into her left leg and down the left lateral aspect of her leg. It is worse with movement improves with rest. She denies any weakness or numbness in the leg. She is able to urinate and move her bowels. She is able to ambulate. She notes positional changes do make it worse. Denies any headache or change in vision. No chest pain or shortness of breath. No nausea, vomiting, or diarrhea. She notes she feels unsafe at home as she is by herself but notes that she cannot get around. ADDITIONAL HISTORY OBTAINED: Per HPI Chronic Medical/Social Conditions Affecting Care: Per HPI PAST MEDICAL HISTORY:See Below PAST SURGICAL HISTORY:See Below FAMILY HISTORY:See Below SOCIAL HISTORY:See Below HOME MEDICATIONS:See Below ALLERGIES:See Below VITALS:See Below PHYSICAL EXAMINATION: GENERAL: Sitting up in bed, alert, well appearing, well nourished, no distress, non-toxic EYE EXAM: normal conjunctiva. PERRL and EOM's grossly intact. OROPHARYNX: no exudate, no erythema, lips, buccal mucosa, and tongue normal and mucous membranes are moist NECK: supple, no nuchal rigidity, no adenopathy, non-tender LUNGS: Clear to auscultation. Normal chest wall mechanics HEART: no murmurs, S1 normal and S2 normal ABDOMEN: abdomen soft, non-tender, normo-active bowel sounds, no masses, no rebound or guarding. BACK: Back is symmetrical on inspection and there is no deformity, tenderness in the left lower lumbar paraspinal region tracking to the left gluteus, no CVA tenderness. UPPER EXTREMITIES: upper extremities are grossly normal. LOWER EXTREMITIES: Flexion and extension of the hips, knees, ankles, and EHL 5/5 bilaterally. Winces in pain with flexion extension of the left hip gross sensation is intact. DPs are 2/4 bilateral. Patellar and Achilles reflexes are 1/4 bilateral NEURO EXAM: Normal sensorium, cranial nerves II-XII grossly intact, normal speech, no gross weakness of arms, no gross weakness of legs. MEDICAL DECISION MAKING: Patient is a 73-year-old female who presents ER for left lower extremity pain. IV was established and blood work was obtained. Labs show no significant leukocytosis or anemia. BMP with LFTs bilirubin and lipase unremarkable. Troponin was negative. Chest x-ray and x-ray and x-ray of the hip and pelvis showed no acute fractures. CT lumbar spine showed no acute pathology. Patient was given IV morphine x 2. Patient was updated at bedside. She was hypoxic after 2 mg of morphine. She was also given steroids. She was given another dose of morphine. She was updated at bedside and discussed with the hospitalist for further evaluation management treatment Consults/Care Managements Discussions: Per [facility] Triage Nursing notes reviewed. Limited review of prior medical records performed Vital Signs: reviewed and remarkable for no significant abnormalities Differential diagnosis: Musculoskeletal, disc herniation, fracture, metastatic disease, cord compression, discitis, sciatica, cauda equina, infection, aortic disease, renal colic, gastrointestinal, as well as other pathologies. ER treatment provided: See below Diagnostics interpreted by me include EKG and cardiac monitoring as listed below: -Cardiac Monitoring: An order was placed for continuous cardiac monitoring. The monitor shows a rate of 60 with sinus rhythm. -ECG: none -Laboratory studies:Interpreted by me as stated above in [facility] and shown below. Imaging studies: Xrays: As interpreted by me: Portable AP upright 1 view of the chest shows no focal obstruction X-rays of the hip and pelvis shows no acute fracture CTs show: CT of the lumbar spine shows no fracture Procedures:none Critical Care: None Past Med/Surg History Problem List (Updated 06/16/24 @ 19:21 by Terence Maldonado DO) Hypoxia (Acute) H/O lumbosacral spine surgery GERD (gastroesophageal reflux disease) CKD (chronic kidney disease), stage III (HFpEF) heart failure with preserved ejection fraction HLD (hyperlipidemia) CAD (coronary artery disease) Hx cardiac cath 2014: coronary arteries have diffuse minor irregularities Back pain (Acute) Acute hip pain (Acute) Generalized weakness JALEN (obstructive sleep apnea) Hypothyroidism HTN (hypertension) Pacemaker (Acute) Chronic anticoagulation (Acute) Depression Tachy-jess syndrome pt admited for elective ppm due to TBS; underwent procedure without any complications; monitored overnight and discharged home. History of pulmonary embolism Paroxysmal A-fib Stress-induced cardiomyopathy Medical History (Updated 06/16/24 @ 19:21 by Terence Maldonado DO) Dizziness Back pain Hypokalemia Anemia Current use of halfway anticoagulation Anemia GI bleed GI bleed Black stool Otitis media Acute hypokalemia Elevated brain natriuretic peptide (BNP) level Nausea vomiting and diarrhea Community acquired pneumonia Flu-like symptoms Chronic anticoagulation H/O cardiac pacemaker Atrial fibrillation, controlled JALEN (obstructive sleep apnea) Hypertension Elevated troponin Atypical chest pain Precordial chest pain Chest pain Abdominal pain Melanotic stools GI bleed Melena Takotsubo cardiomyopathy NSTEMI (non-ST elevated myocardial infarction) H/O cholecystitis H/O cholecystitis Obesity JALEN (obstructive sleep apnea) Hx pulmonary embolism 2014 HTN (hypertension) Paroxysmal atrial fibrillation Atrial fibrillation Paroxysmal atrial fibrillation, on rhythm control strategy with dofetilide, Coumadin (entered by Dr Borges 10/22/17) Surgical History (Updated 06/16/24 @ 18:32 by TEA Maria) Hx of cardiac catheterization Angiographically normal coronary arteries, 10/22/17, [facility]. History, echocardiogram, cardiac catheterization data consistent with atypical presentation of stress-induced cardiomyopathy with normal apical wall motion, and hypokinesis to akinesis of the basal left ventricular myocardial segments H/O wisdom tooth extraction H/O carpal tunnel repair H/O: hysterectomy Hx of cardiac catheterization H/O carpal tunnel repair H/O: hysterectomy Family History Father , age 62 of an [place] Myocardial infarction, Onset Age: 62 Brother Myocardial infarction, Onset Age: 68 Mother , age 65 of a stroke Stroke Other Diabetes Hypertension Social History Smoking Status: Never smoker Second Hand Exposure: No; Do You Dip or Chew Tobacco: No; Hx Alcohol Use: No Hx Substance Use: No Preferred Language: Bel[place]an Communication Ability: Effective Visual Impairment: Limited Hearing Ability: Normal Pulverizer Feeder Required: No Beliefs That Will Affect Care: None marital status: Single Current Living Situation: Alone Current Living Situation Comment: appartment current occupational status: retired 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" Feels Safe at Home: Yes Assistive Devices: CPAP and Other Allergies Allergies Allergy/AdvReac Type Severity Reaction Status Date / Time celecoxib Allergy Intermediate Hives Verified 06/16/24 16:47 latex Allergy Intermediate RASH Verified 06/16/24 16:47 lisinopril AdvReac Intermediate Cough Verified 06/16/24 16:47 Home Meds Home Medications Medication Instructions Recorded Confirmed aspirin 81 mg tablet,delayed 81 mg PO QAM 10/22/17 06/16/24 release (Vonda Low Dose Aspirin) cholecalciferol (vitamin D3) 25 1,000 units PO QAM 10/22/17 06/16/24 mcg (1,000 unit) capsule cyanocobalamin (vitamin B-12) 1,000 mcg sublingual QAM 10/22/17 06/16/24 1,000 mcg sublingual tablet losartan 100 mg tablet 100 mg PO QAM 10/22/17 06/16/24 amiodarone 200 mg tablet 200 mg PO QAM 12/02/19 06/16/24 atorvastatin 40 mg tablet (Lipitor) 40 mg PO HS 12/02/19 06/16/24 metoprolol succinate 25 mg 25 mg PO QAM 12/02/19 06/16/24 tablet,extended release 24 hr escitalopram oxalate 20 mg tablet 20 mg PO QPM 07/12/20 06/16/24 fluticasone propionate 50 2 spray intranasal DAILY PRN 05/19/21 06/16/24 mcg/actuation nasal Congestion spray,suspension gabapentin 100 mg capsule 200 mg PO TID 07/02/22 06/16/24 magnesium oxide 250 mg PO DAILY 07/02/22 06/16/24 amlodipine 5 mg tablet 5 mg PO QAM 06/16/24 06/16/24 furosemide 20 mg tablet (Lasix) 20 mg PO 3XWK PRN edema 06/16/24 06/16/24 levothyroxine 75 mcg tablet 75 mcg PO DAILYBB 06/16/24 06/16/24 oxycodone 5 mg tablet 7.5 mg PO BID PRN Severe Pain 06/16/24 06/16/24 (Scale Score 7-10) semaglutide (weight loss) 0.5 0.5 mg subcut WK 06/16/24 06/16/24 mg/0.5 mL subcutaneous pen injector (Melanie) Previous Rx's Medication Instructions Recorded apixaban 5 mg tablet (Eliquis) 5 mg PO BID #60 tabs 09/10/21 omeprazole 20 mg capsule,delayed 40 mg (2 x 20 mg) PO AMHS #30 caps 09/10/21 release sennosides 8.6 mg-docusate sodium 1 tab PO QAM PRN constipation #30 09/10/21 50 mg tablet (Senokot-S) tabs acetaminophen 325 mg tablet 650 mg (2 x 325 mg) PO Q4H PRN 10/31/21 pain #30 tabs diclofenac sodium 1 % topical gel 1 g EXT TID #30 grams 04/03/22 (Voltaren Arthritis Pain) meclizine 25 mg tablet 25 mg PO TID #30 tabs 04/03/22 oxycodone 5 mg tablet 5 mg PO Q6H PRN pain #10 tabs 06/16/24 prednisone 50 mg tablet 50 mg PO DAILY 5 days #5 tabs 06/16/24 prednisone 50 mg tablet 50 mg PO DAILY 5 days #5 tabs 06/16/24 Results & Data (ED) Vital Signs Vital Signs - 24 hr 06/16/24 14:15 06/16/24 15:00 06/16/24 15:10 Pulse Rate 76 Pulse Rate [Apical] 66 Respiratory Rate 20 Respiratory Effort / Characteristics Respiratory Depth Blood Pressure [Left Arm] 145/66 H Blood Pressure Mean [Left Arm] 92 Blood Pressure Position [Left Arm] Sitting Pulse Oximetry 92 Oxygen Delivery Method Room Air Oxygen Flow Rate Sepsis Recent Fever Within 48 Hours No Sepsis New/Unexplained Change in Mental Status No Sepsis Action Taken by Nursing No Action Required 06/16/24 17:21 06/16/24 19:00 Pulse Rate Pulse Rate [Apical] 60 62 Respiratory Rate 14 18 Respiratory Effort / Characteristics Non-Labored Spontaneous Non-Labored Respiratory Depth Normal Normal Blood Pressure [Left Arm] 140/74 130/64 Blood Pressure Mean [Left Arm] 96 86 Blood Pressure Position [Left Arm] Pulse Oximetry 95 96 Oxygen Delivery Method Nasal Cannula Room Air Oxygen Flow Rate 2 Sepsis Recent Fever Within 48 Hours Sepsis New/Unexplained Change in Mental Status Sepsis Action Taken by Nursing Laboratory Data 06/16/24 Unknown 06/16/24 Unknown Lab Results 06/16/24 Range/Units Unknown WBC 5.11 (4.8-10.8) K/ul RBC 4.32 (4.20-5.40) M/uL Hgb 13.5 (12.0-16.0) g/dl Hct 40.0 (37.0-47.0) % MCV 92.6 (80.0-100.0) fL MCH 31.3 (25.0-34.0) pg MCHC 33.8 (32.0-36.0) g/dL RDW Std Deviation 45.7 (36.4-46.3) fL RDW Coeff of Artemio 13.5 (11.5-14.5) % Plt Count 193 (130-400) K/uL MPV 9.3 L (9.4-12.4) fL Immature Gran % (Auto) 0.4 % Neut % (Auto) 55.7 % Lymph % (Auto) 37.8 % Edwards % (Auto) 5.1 % Eos % (Auto) 0.6 % Baso % (Auto) 0.4 % Neut # (Auto) 2.85 (1.40-6.50) K/uL Lymph # (Auto) 1.93 (1.20-3.40) K/uL Edwards # (Auto) 0.26 (0.11-0.59) K/uL Eos # (Auto) 0.03 (0.00-0.50) K/uL Baso # (Auto) 0.02 (0.00-0.20) K/uL Immature Gran # (Auto) 0.02 (0.01-0.20) K/uL Sodium 143 (136-145) mmol/L Potassium 3.7 (3.5-5.1) mmol/L Chloride 107 (98-107) mmol/L Carbon Dioxide 31 (21-32) mmol/L Anion Gap 5 (3-11) BUN 13 (6-23) mg/dl Creatinine 0.90 (0.6-1.2) mg/dl Est Cr Clr Drug Dosing 77.1 ml/min eGFR 67.50 BUN/Creatinine Ratio 14.4 (10-20) Glucose 96 (70-99(Fasting)) mg/dl Calcium 8.8 (8.6-10.3) mg/dl Total Bilirubin 0.5 (0.2-1.0) mg/dl AST 19 (13-39) U/L ALT 16 (7-52) U/L Alkaline Phosphatase 82 (34-104) U/L Troponin I High Sens 9.8 (0-14) pg/ml Total Protein 6.7 (6.0-8.3) gm/dl Albumin 3.9 (3.4-5.0) gm/dl Globulin 2.8 (2.5-4.0) gm/dl Albumin/Globulin Ratio 1.4 (0.9-2) Lipase 14 (11-82) U/L Administered Medications Discontinued Medications Ketorolac Tromethamine (Ketorolac Tromethamine 15 Mg/Ml Vial) 10 mg IV NOW ONE Stop: 06/16/24 14:34 Last Admin: 06/16/24 14:43 Dose: 10 mg Documented By: QGV Methylprednisolone (Methylprednisolone 125 Mg/2 Ml Vial) 60 mg IV NOW STA Stop: 06/16/24 14:34 Last Admin: 06/16/24 14:42 Dose: 60 mg Documented By: QGV Morphine Sulfate (Morphine Sulfate 2 Mg/Ml Carp) 2 mg IV NOW STA Stop: 06/16/24 14:34 Last Admin: 06/16/24 14:43 Dose: 2 mg Documented By: QGV Morphine Sulfate (Morphine Sulfate 4 Mg/Ml 1 Ml Carp\\Vial) 4 mg IV NOW STA Stop: 06/16/24 16:55 Last Admin: 06/16/24 17:22 Dose: 4 mg Documented By: ASW Ondansetron HCl (Ondansetron Inj 2 Mg/Ml 2 Ml Vial) 4 mg IV NOW STA Stop: 06/16/24 14:34 Last Admin: 06/16/24 14:43 Dose: 4 mg Documented By: QGV Imaging Data Radiologist's Impression: Hip/Pelvis X-Ray 06/16/24 14:32 XR hip LT 2V w pelvis CLINICAL HISTORY: l hip pain COMPARISON: None FINDINGS: AP pelvis and 2 additional views of the left hip demonstrate mild to moderate bilaterally symmetrical osteoarthritis. There is also some arthritic changes in the SI joints manifested by marginal sclerosis and small inferior osteophytes. This is more pronounced in the left SI joint than the right. There is no evidence of a left hip fracture or dislocation. There is no periarticular calcification. There is marginal osteophytes. There is no flattening or sclerosis of the femoral head. The patient is status post multilevel lumbar laminectomy and fusion. IMPRESSION: Moderate bilateral osteoarthritis of the hips. Bilateral arthritic changes in the SI joints left greater than right. ACT 112: Negative or not required by law. Electronically signed by: Agustina Castro M.D. 06/16/2024 3:[address] 06/16/24 14:32 CT OF THE LUMBAR SPINE CLINICAL HISTORY: Low back pain radiating to left leg. COMPARISON STUDY: Lumbar spine CT October 29, 2021. CT of the abdomen and pelvis February 22, 2022. TECHNIQUE: Helical axial images of the lumbar spine were obtained. Sagittal and coronal reconstructions were viewed. Automated exposure control was utilized for the study. A dose lowering technique was utilized adhering to the principles of ALARA. FINDINGS: For purposes of numbering on this exam, the L5-S1 disc space is assigned to axial image 275 of 481. There are stable postoperative findings consistent with L4-S1 decompression and fusion. Interbody spacers at the L4-L5 and L5-S1 levels are noted. Hardware is intact. There are no lumbar spine fractures. No osseous lesions are identified by CT. Paravertebral soft tissues are unremarkable. Central canal and neural foramen are suboptimally assessed given CT technique and artifact related to hardware. CT evidence for severe central canal stenosis. There is mild to moderate multilevel neural foraminal stenosis. IMPRESSION: 1. No acute lumbar spine fracture or subluxation. 2. Status post L4-S1 decompression and fusion. Hardware intact. Stable postoperative findings. 3. Suboptimal evaluation of the central canal and neural foramen, as described above. No CT evidence for severe central canal stenosis. Mild to moderate multilevel neural foraminal stenosis. ACT 112: Negative or not required by law. Electronically signed by: Nav Jurado M.D. 06/16/2024 3:06 PM Chest X-Ray 06/16/24 16:51 EXAM: XR chest 1V portable CLINICAL HISTORY: EKG TECHNIQUE: An X-ray image of the chest is obtained in AP projection. COMPARISON: X-ray 11/06/2023 FINDINGS: Pulmonary Parenchyma: Unchanged bilateral prominent pulmonary vasculature. No evidence of consolidation, collapse, or focal opacities. No pulmonary nodules are identified. No evidence of pleural effusion or pleural thickening. Heart and Mediastinum: Mild cardiomegaly masking the left lower zone. No mediastinal widening or masses. No hilar or mediastinal lymphadenopathy. A pacemaker is noted, with pacemaker leads in satisfactory position. Cardiac monitoring electrodes. Bony Thorax: Bony thorax appears intact without fractures or deformities. Soft Tissues: Soft tissues overlying the chest wall are unremarkable. IMPRESSION: 1. Unchanged pulmonary congestion and mild cardiomegaly. 2. No acute cardiopulmonary abnormalities are identified. Electronically signed by Harpreet Carroll 06-16-2024 6:45 PM Discharge Plan Visit Data Chief Complaint: Back Injury/Pain Stated Complaint: BACK AND LEG PAIN ED Provider: Terence Maldonado Discharge Problem: Hypoxia, Acute hip pain, Back pain Patient Disposition: Home - Self-Care Condition: Good Discharge Instructions Akilah/Other Patient Handouts: ED Back Sprain or Strain, ED Sciatica Activity Restrictions/Additional Instructions: Please follow up with your primary care doctor with in the next 24 hours. Any worsening of your symptoms, please return to the ED immediately. This includes any fevers greater than 100.4, worsening pain, weakness or numbness in your legs, numbness in your groin, unable to urinate, overflow incontinence, chest pain, shortness breath, persistent nausea, vomiting, unable to eat or drink, or any other concerning signs or symptoms from your standpoint. You were found to have a blood pressure greater than 120 systolic over 90 diastolic. Due to the new Medicare guidelines, we are now recommending that you follow up with your primary care doctor in regards to this elevated blood pressure. You were given medications during this visit that will inhibit your ability to drive, operate machinery and work. Please do NOT drive, operate machinery or work for the next 12hrs. you have a prescription at home for oxycodone. Please use this as needed for pain in your back and hip. If you change your mind at any point please return to the ER for admission. Forms Stand Alone Forms: My [facility], Important Visit Information Prescriptions Prescriptions: New prednisone 50 mg tablet 50 mg PO DAILY 5 Days Qty: 5 0RF oxycodone 5 mg tablet 5 mg PO Q6H PRN (Reason: pain) Qty: 10 0RF prednisone 50 mg tablet 50 mg PO DAILY 5 Days Qty: 5 0RF No Action aspirin [Vonda Low Dose Aspirin] 81 mg Tablet,Delayed Release (Dr/Ec) 81 mg PO QAM cholecalciferol (vitamin D3) 1,000 unit Capsule 1,000 units PO QAM cyanocobalamin (vitamin B-12) 1,000 mcg Tablet, Sublingual 1,000 mcg SUBLINGUAL QAM losartan 100 mg Tablet 100 mg PO QAM atorvastatin [Lipitor] 40 mg Tablet 40 mg PO HS amiodarone 200 mg tablet 200 mg PO QAM metoprolol succinate 25 mg tablet extended release 24 hr 25 mg PO QAM escitalopram oxalate 20 mg tablet 20 mg PO QPM Eliquis 5 mg Tablet 5 mg PO BID Qty: 60 0RF sennosides-docusate sodium [Senokot-S] 8.6-50 mg Tablet 1 tab PO QAM PRN (Reason: constipation) Qty: 30 0RF omeprazole 20 mg capsule,delayed release(DR/EC) 40 mg PO AMHS Qty: 30 0RF acetaminophen 325 mg Tablet 650 mg PO Q4H PRN (Reason: pain) Qty: 30 0RF meclizine 25 mg Tablet 25 mg PO TID Qty: 30 0RF diclofenac sodium [Voltaren Arthritis Pain] 1 % Gel 1 g EXT TID Qty: 30 0RF magnesium oxide 250 mg magnesium Tablet 250 mg PO DAILY gabapentin 100 mg capsule 200 mg PO TID fluticasone propionate 50 mcg/actuation Busy,Suspension 2 spray INTRANASAL DAILY PRN (Reason: Congestion) amlodipine 5 mg tablet 5 mg PO QAM levothyroxine 75 mcg tablet 75 mcg PO DAILYBB oxycodone 5 mg tablet 7.5 mg PO BID PRN (Reason: Severe Pain (Scale Score 7-10)) Wegovy 0.5 mg/0.5 mL pen injector 0.5 mg subcut WK Rx Instructions: Thursday furosemide [Lasix] 20 mg tablet 20 mg PO 3XWK PRN (Reason: edema) Rx Instructions: Sun/Tu/Th Referrals Referrals: Irish Richard DO [Outside Practitioners] - Discharge Problem: Acute hip pain Qualifiers: Laterality: left Qualified Code(s): M25.552 - Pain in left hip Back pain Qualifiers: Back pain location: low back pain Chronicity: acute Back pain laterality: left Sciatica presence: unspecified whether sciatica present Qualified Code(s): M 54.50 - Low back pain, unspecified
[2024-06-16] MEDS: methylPREDNISolone 125 MG/2 ML VIAL IV STA (14:42)
[2024-06-16] MEDS: MoRPHine SULFATE 2 MG/ML CARP IV STA (14:43)
[2024-06-16] MEDS: ONDANSETRON INJ 2 MG/ML 2 ML VIAL IV STA (14:43)
[2024-06-16] MEDS: KETOROLAC TROMETHAMINE 15 MG/ML VIAL IV ONE (14:43)
[2024-06-16 14:51] LABS: Basophils # (auto) 0.02 K/uL (0.00-0.20); Basophils % (auto) 0.4 %; Eosinophils # (auto) 0.03 K/uL (0.00-0.50); Eosinophils % (auto) 0.6 %; Hemoglobin 13.5 g/dl (12.0-16.0); Immature Granulocytes # (auto) 0.02 K/uL (0.01-0.20); Immature Granulocytes % (auto) 0.4 %; Lymphocytes # (auto) 1.93 K/uL (1.20-3.40); Lymphocytes % (auto) 37.8 %; Mean Corpuscular Hemoglobin 31.3 pg (25.0-34.0); Mean Corpuscular Hgb Conc 33.8 g/dL (32.0-36.0); Mean Corpuscular Volume 92.6 fL (80.0-100.0); Mean Platelet Volume 9.3 fL (9.4-12.4); Monocytes # (auto) 0.26 K/uL (0.11-0.59); Monocytes % (auto) 5.1 %; Neutrophils # (auto) 2.85 K/uL (1.40-6.50); Neutrophils % (auto) 55.7 %; Platelet Count 193 K/uL (130-400); RDW Coefficient of Variation 13.5 % (11.5-14.5); RDW Standard Deviation 45.7 fL (36.4-46.3); Red Blood Count 4.32 M/uL (4.20-5.40); White Blood Count 5.11 K/ul (4.8-10.8)
--- NOTE | 2024-06-16 15:07 | CT Scan Report ---
CT OF THE LUMBAR SPINE CLINICAL HISTORY: Low back pain radiating to left leg. COMPARISON STUDY: Lumbar spine CT October 29, 2021. CT of the abdomen and pelvis February 22, 2022. TECHNIQUE: Helical axial images of the lumbar spine were obtained. Sagittal and coronal reconstruct ions were viewed. Automated exposure control was utilized for the study. A dose lowering technique was utilized adhering to the principles of ALARA. FINDINGS: For purposes of numbering on this exam, the L5-S1 disc space is assigned to axial image 275 of 481. There are stable postoperative findings consistent with L4-S1 decompression and fusion. Inte rbody spacers at the L4-L5 and L5-S1 levels are noted. Hardware is intact. There are no lumbar spine fractures. No osseous lesions are identified by CT. Paravertebral soft tissues are unremarkable. Cent ral canal and neural foramen are suboptimally assessed given CT technique and artifact related to mira dware. CT evidence for severe central canal stenosis. There is mild to moderate multilevel neural for aminal stenosis. IMPRESSION: 1. No acute lumbar spine fracture or subluxation. 2. Status post L4-S1 decompression and fusion. Hardware intact. Stable postoperative findings. 3. Suboptimal evaluation of the central canal and neural foramen, as described above. No CT evidence for severe central canal stenosis. Mild to moderate multilevel neural foraminal stenosis. ACT 112: Negative or not required by law. Electronically signed by: Nav Jruado M.D. 06/16/2024 3:06 PM
[2024-06-16 15:08] LABS: Albumin Globulin Ratio 1.4 (0.9-2); Albumin Level 3.9 gm/dl (3.4-5.0); BUN Creatinine Ratio 14.4 (10-20); Bilirubin,Total 0.5 mg/dl (0.2-1.0); Calcium 8.8 mg/dl (8.6-10.3); Creatinine Clr Calc Pharmacy 77.1 ml/min; Globulin 2.8 gm/dl (2.5-4.0); Potassium 3.7 mmol/L (3.5-5.1); Total Protein 6.7 gm/dl (6.0-8.3)
--- NOTE | 2024-06-16 15:59 | XRay Report ---
XR hip LT 2V w pelvis CLINICAL HISTORY: l hip pain COMPARISON: None FINDINGS: AP pelvis and 2 additional views of the left hip demonstrate mild to moderate bilaterally symmetrical osteoarthritis. There is also some arthritic changes in the SI joints manifested by alvino nal sclerosis and small inferior osteophytes. This is more pronounced in the left SI joint than the r ight. There is no evidence of a left hip fracture or dislocation. There is no periarticular calcification. There is marginal osteophytes. There is no flattening or sclerosis of the femoral head. The patient is status post multilevel lumbar laminectomy and fusion. IMPRESSION: Moderate bilateral osteoarthritis of the hips. Bilateral arthritic changes in the SI joints left greater than right. ACT 112: Negative or not required by law. Electronically signed by: Agustina Castro M.D. 06/16/2024 3:56 PM
[2024-06-16] MEDS: MoRPHine SULFATE 4 MG/ML 1 ML CARP\\VIAL IV STA (17:22)
[2024-06-16 17:32] LABS: Troponin I High Sensitivity 9.8 pg/ml (0-14)
--- NOTE | 2024-06-16 18:26 | History & Physical Report ---
Date of Service June 16, 2024 Assessment & Plan (1) Spinal stenosis of lumbar region with radiculopathy: (2) H/O lumbosacral spine surgery: (3) Ambulatory dysfunction: (4) Hypoxia: (5) JALEN (obstructive sleep apnea): (6) Paroxysmal A-fib: (7) HTN (hypertension): (8) (HFpEF) heart failure with preserved ejection fraction: (9) CAD (coronary artery disease): (10) HLD (hyperlipidemia): (11) Hypothyroidism: (12) Depression: (13) GERD (gastroesophageal reflux disease): Plan 73 year old female with PMH significant for paroxysmal A fib, HTN, HFpEF, CAD. stress induced BELT FIXER, tachy-jess syndrome s/p dual chamber pacemaker (2019), history of PE, venous insufficiency, CKD III, HLD, hypothyroidism, JALEN on CPAP, GERD, MDD, and degeneration of intervertebral disc of lumbar region s/p L4-S1 decompression and fusion who presents to the ED today with back pain. Spinal stenosis of lumbar region with radiculopathy s/p L4-S1 decompression and fusion Lumbar spine CT revealed no fracture or subluxation; hardware from fusion intact; mild to moderate multilevel neural foraminal stenosis Hip and pelvis xray revealed moderate bilateral osteoarthritis of hips Plan: -Consult Dr Tanner given stenosis and previous surgery -NPO at 0000 -Pain control with scheduled tylenol, PRN oxycodone, PRN morphine -PRN miralax and senna for constipation -IV solu-medrol tomorrow am -Lidocaine patch and heat application Ambulatory dysfunction Likely due to back pain PT/OT consults Hypoxia JALEN Patient 88% on RA while sleeping in ED Likely due to JALEN or post morphine or obesity hypoventilation syndrome Continue CPAP qhs PAF, HTN, HFpEF, CAD, HLD Patient follows with Cardiology Dr. Frias every 6 months (last seen 05/24/2024) Cardiac conditions stable Continue amiodarone for A fib - holding eliquis for possible procedure tomorrow - resume elodia if no procedure Continue amlodipine, baby aspirin, atorvastatin, metoprolol, losartan for HF/CAD/HTN/HLD Hypothyroidism Continue levothyroxine Depression Continue escitalopram GERD Continue omeprazole Venous insufficiency Continue lasix 3x/week DVT Prophylaxis: on Eliquis but holding for possible procedure tomorrow - resume elodia if no procedure Code Status: FULL CODE - As per discussion at bedside with the patient. PCP: Dr Naveed Peters Disposition: admit to med surg Patient seen in collaboration with Dr Ward. Please see addendum. I spent a total of 75 minutes coordinating, documenting and providing care for this patient excluding time spent in the performance of separately billed services or time spent by another provider/QHP. Admission and Anticipated Discharge Date Admission Date: 06/16/2024 History of Present Illness Chief Complaint: back pain Primary Care Provider: Naveed Peters MD 73 year old female with PMH significant for paroxysmal A fib, HTN, HFpEF, CAD, stress induced BELT FIXER, tachy-jess syndrome s/p dual chamber pacemaker (2019), history of PE, venous insufficiency, CKD III, HLD, hypothyroidism, JLAEN on CPAP, GERD, MDD, and degeneration of intervertebral disc of lumbar region s/p L4-S1 decompression and fusion with Dr Tanner in 2011 or 2012 who presents to the ED today with low back pain. She reports that she has chronic low back pain but has been experiencing acute worsening of her symptoms since yesterday. She notes that she has severe (7/10) low back pain that radiates into her left buttock with burning pain going down her left leg from hip to ankle. She endorses numbness and tingling of her left leg. She notes that the pain has caused her to not be able to tolerate walking and she has an extremely hard time standing from the seated position. She notes it is excruciating to get off the toilet or out of her chair. She denies incontinence or saddle anesthesia. She denies hip pain. She denies any falls but does not feel strong enough to walk. She reports she saw Dr Tanner in 2021 or 2022 and he advised an MRI which was scheduled and patient cancelled the appointment. Allergies Allergy/AdvReac Type Severity Reaction Status Date / Time celecoxib Allergy Intermediate Hives Verified 06/16/24 16:47 latex Allergy Intermediate RASH Verified 06/16/24 16:47 lisinopril AdvReac Intermediate Cough Verified 06/16/24 16:47 Home Medications Medication Instructions Recorded Confirmed Type aspirin 81 mg tablet,delayed 81 mg PO QAM 10/22/17 06/16/24 History release (Vonda Low Dose Aspirin) cholecalciferol (vitamin D3) 25 1,000 units PO QAM 10/22/17 06/16/24 History mcg (1,000 unit) capsule cyanocobalamin (vitamin B-12) 1,000 mcg sublingual QAM 10/22/17 06/16/24 History 1,000 mcg sublingual tablet losartan 100 mg tablet 100 mg PO QAM 10/22/17 06/16/24 History amiodarone 200 mg tablet 200 mg PO QAM 12/02/19 06/16/24 History atorvastatin 40 mg tablet (Lipitor) 40 mg PO HS 12/02/19 06/16/24 History metoprolol succinate 25 mg 25 mg PO QAM 12/02/19 06/16/24 History tablet,extended release 24 hr escitalopram oxalate 20 mg tablet 20 mg PO QPM 07/12/20 06/16/24 History fluticasone propionate 50 2 spray intranasal DAILY PRN 05/19/21 06/16/24 History mcg/actuation nasal Congestion spray,suspension apixaban 5 mg tablet (Eliquis) 5 mg PO BID #60 tabs 09/10/21 06/16/24 Rx omeprazole 20 mg capsule,delayed 40 mg (2 x 20 mg) PO AMHS #30 caps 09/10/21 06/16/24 Rx release sennosides 8.6 mg-docusate sodium 1 tab PO QAM PRN constipation #30 09/10/21 06/16/24 Rx 50 mg tablet (Senokot-S) tabs acetaminophen 325 mg tablet 650 mg (2 x 325 mg) PO Q4H PRN 10/31/21 06/16/24 Rx pain #30 tabs diclofenac sodium 1 % topical gel 1 g EXT TID #30 grams 04/03/22 06/16/24 Rx (Voltaren Arthritis Pain) meclizine 25 mg tablet 25 mg PO TID #30 tabs 04/03/22 06/16/24 Rx gabapentin 100 mg capsule 200 mg PO TID 07/02/22 06/16/24 History amlodipine 5 mg tablet 5 mg PO QAM 06/16/24 06/16/24 History furosemide 20 mg tablet (Lasix) 20 mg PO 3XWK PRN edema 06/16/24 06/16/24 History levothyroxine 75 mcg tablet 75 mcg PO DAILYBB 06/16/24 06/16/24 History oxycodone 5 mg tablet 7.5 mg PO BID PRN Severe Pain 06/16/24 06/16/24 History (Scale Score 7-10) semaglutide (weight loss) 0.5 0.5 mg subcut WK 06/16/24 06/16/24 History mg/0.5 mL subcutaneous pen injector (Wegovy) Past Med/Surg History Problem List (Updated 06/16/24 @ 20:51 by TEA Maria) Ambulatory dysfunction Spinal stenosis of lumbar region with radiculopathy Hypoxia H/O lumbosacral spine surgery GERD (gastroesophageal reflux disease) CKD (chronic kidney disease), stage III (HFpEF) heart failure with preserved ejection fraction HLD (hyperlipidemia) CAD (coronary artery disease) Hx cardiac cath 2014: coronary arteries have diffuse minor irregularities Generalized weakness JALEN (obstructive sleep apnea) Hypothyroidism HTN (hypertension) Pacemaker (Acute) Chronic anticoagulation (Acute) Depression Tachy-jess syndrome pt admited for elective ppm due to TBS; underwent procedure without any complications; monitored overnight and discharged home. History of pulmonary embolism Paroxysmal A-fib Stress-induced cardiomyopathy Medical History (Updated 06/16/24 @ 20:51 by TEA Maria) Back pain Acute hip pain Dizziness Back pain Hypokalemia Anemia Current use of snf anticoagulation Anemia GI bleed GI bleed Black stool Otitis media Acute hypokalemia Elevated brain natriuretic peptide (BNP) level Nausea vomiting and diarrhea Community acquired pneumonia Flu-like symptoms Chronic anticoagulation H/O cardiac pacemaker Atrial fibrillation, controlled JALEN (obstructive sleep apnea) Hypertension Elevated troponin Atypical chest pain Precordial chest pain Chest pain Abdominal pain Melanotic stools GI bleed Melena Takotsubo cardiomyopathy NSTEMI (non-ST elevated myocardial infarction) H/O cholecystitis H/O cholecystitis Obesity JALEN (obstructive sleep apnea) Hx pulmonary embolism 2014 HTN (hypertension) Paroxysmal atrial fibrillation Atrial fibrillation Paroxysmal atrial fibrillation, on rhythm control strategy with dofetilide, Coumadin (entered by Dr Borges 10/22/17) Surgical History (Updated 06/16/24 @ 18:32 by TEA Maria) Hx of cardiac catheterization Angiographically normal coronary arteries, 10/22/17, [facility]. History, echocardiogram, cardiac catheterization data consistent with atypical presentation of stress-induced cardiomyopathy with normal apical wall motion, and hypokinesis to akinesis of the basal left ventricular myocardial segments H/O wisdom tooth extraction H/O carpal tunnel repair H/O: hysterectomy Hx of cardiac catheterization H/O carpal tunnel repair H/O: hysterectomy Family History Father , age 62 of an AR Myocardial infarction, Onset Age: 62 Brother Myocardial infarction, Onset Age: 68 Mother , age 65 of a stroke Stroke Other Diabetes Hypertension Social History Smoking Status: Never smoker Second Hand Exposure: No; Do You Dip or Chew Tobacco: No; Hx Alcohol Use: No Hx Substance Use: No Preferred Language: [place] Communication Ability: Effective Visual Impairment: Limited Hearing Ability: Normal Machine Sole Leveler Required: No Beliefs That Will Affect Care: None marital status: Single Current Living Situation: Alone Current Living Situation Comment: appartment current occupational status: retired 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" Feels Safe at Home: Yes Assistive Devices: CPAP and Other Review of Systems Review of Systems: All systems reviewed & are unremarkable except as noted in HPI & below Physical Exam Physical Exam: General/Psych: WD/WN, sitting up in bed, NAD, conversing easily, euthymic affect Head: normocephalic, atraumatic Eyes: normal inspection, PERRL, conjunctivae pink, anicteric sclerae ENT: external ear and nose normal, oropharynx normal Neck: normal visual inspection, trachea midline, no thyromegaly Respiratory: normal respiratory effort, lungs clear to auscultation, no wheeze/rales/rhonchi, no accessory muscle use Cardiovascular: regular rate and rhythm, no murmur/rub/gallop, no JVD Extremities: no cyanosis or clubbing, normal peripheral pulses, no BLE edema, compression stockings in place Abdomen/GI: normal bowel sounds, soft, nontender, no hepatosplenomegaly Neurologic/MSK: A+Ox3, motor strength 5/5, moves all extremities, pain on palpation of low back and left hip Skin: no rashes, normal color, warm and dry Results & Data Results & Data Vital Signs (Past 12 Hours) Vital Signs Pulse Pulse Resp BP Pulse Ox O2 Del Method O2 Flow Rate 06/16/24 17:21 60 14 140/74 95 Nasal Cannula 2 06/16/24 15:10 76 06/16/24 15:00 66 20 145/66 H 92 Room Air Laboratory Results Short CBC 06/16/24 Range/Units Unknown WBC 5.11 (4.8-10.8) K/ul Hgb 13.5 (12.0-16.0) g/dl Hct 40.0 (37.0-47.0) % Plt Count 193 (130-400) K/uL BMP 06/16/24 Unknown Sodium 143 Potassium 3.7 Chloride 107 Carbon Dioxide 31 BUN 13 Creatinine 0.90 Glucose 96 Calcium 8.8 Liver Function 06/16/24 Range/Units Unknown Total Bilirubin 0.5 (0.2-1.0) mg/dl AST 19 (13-39) U/L ALT 16 (7-52) U/L Alkaline Phosphatase 82 (34-104) U/L Albumin 3.9 (3.4-5.0) gm/dl I have independently reviewed and interpreted patient's admitting labs including CBC, CMP, lipase, troponin Diagnostic Findings Hip/Pelvis X-Ray 06/16/24 14:32 XR hip LT 2V w pelvis CLINICAL HISTORY: l hip pain COMPARISON: None FINDINGS: AP pelvis and 2 additional views of the left hip demonstrate mild to moderate bilaterally symmetrical osteoarthritis. There is also some arthritic changes in the SI joints manifested by marginal sclerosis and small inferior osteophytes. This is more pronounced in the left SI joint than the right. There is no evidence of a left hip fracture or dislocation. There is no periarticular calcification. There is marginal osteophytes. There is no flattening or sclerosis of the femoral head. The patient is status post multilevel lumbar laminectomy and fusion. IMPRESSION: Moderate bilateral osteoarthritis of the hips. Bilateral arthritic changes in the SI joints left greater than right. ACT 112: Negative or not required by law. Electronically signed by: Agustina Castro M.D. 06/16/2024 3:[address] 06/16/24 14:32 CT OF THE LUMBAR SPINE CLINICAL HISTORY: Low back pain radiating to left leg. COMPARISON STUDY: Lumbar spine CT October 29, 2021. CT of the abdomen and pelvis February 22, 2022. TECHNIQUE: Helical axial images of the lumbar spine were obtained. Sagittal and coronal reconstructions were viewed. Automated exposure control was utilized for the study. A dose lowering technique was utilized adhering to the principles of ALARA. FINDINGS: For purposes of numbering on this exam, the L5-S1 disc space is assigned to axial image 275 of 481. There are stable postoperative findings cons istent with L4-S1 decompression and fusion. Interbody spacers at the L4-L5 and L5-S1 levels are noted. Hardware is intact. There are no lumbar spine fractures. No osseous lesions are identified by CT. Paravertebral soft tissues are unremarkable. Central canal and neural foramen are suboptimally assessed given CT technique and artifact related to hardware. CT evidence for severe central canal stenosis. There is mild to moderate multilevel neural foraminal stenosis. IMPRESSION: 1. No acute lumbar spine fracture or subluxation. 2. Status post L4-S1 decompression and fusion. Hardware intact. Stable postoperative findings. 3. Suboptimal evaluation of the central canal and neural foramen, as described above. No CT evidence for severe central canal stenosis. Mild to moderate multilevel neural foraminal stenosis. ACT 112: Negative or not required by law. Electronically signed by: Nav Jurado M.D. 06/16/2024 3:06 PM Chest X-Ray 06/16/24 16:51 EXAM: XR chest 1V portable CLINICAL HISTORY: EKG TECHNIQUE: An X-ray image of the chest is obtained in AP projection. COMPARISON: X-ray 11/06/2023 FINDINGS: Pulmonary Parenchyma: Unchanged bilateral prominent pulmonary vasculature. No evidence of consolidation, collapse, or focal opacities. No pulmonary nodules are identified. No evidence of pleural effusion or pleural thickening. Heart and Mediastinum: Mild cardiomegaly masking the left lower zone. No mediastinal widening or masses. No hilar or mediastinal lymphadenopathy. A pacemaker is noted, with pacemaker leads in satisfactory position. Cardiac monitoring electrodes. Bony Thorax: Bony thorax appears intact without fractures or deformities. Soft Tissues: Soft tissues overlying the chest wall are unremarkable. IMPRESSION: 1. Unchanged pulmonary congestion and mild cardiomegaly. 2. No acute cardiopulmonary abnormalities are identified. Electronically signed by Harpreet Carroll 06-16-2024 6:45 PM Code Status & VTE Plan Code Status Full Code Supervising Physician Co-Signing Physician Notes Patient is a 73-year-old female with history of paroxysmal atrial fibrillation on anticoagulation with Eliquis, hypertension, HFpEF, coronary artery disease, tachybradycardia syndrome s/p pacer, JALEN on CPAP, PE and other medical problems presents with history of worsening lower back pain radiating down her left lower extremity. Patient states having back surgery by Dr. Tanner previously. She denies any recent falls, trauma but states that for the past 2 days duration lower back pain has gradually worsened and she has been having trouble ambulating. She also admits to have some numbness and tingling of lower extremity. She denied any bowel or bladder incontinence. Back pain worsens with movement, activity. She denied any chest pain, dyspnea, nausea, vomiting, abdominal pain. Please review HPI for complete details of presentation. I personally reviewed blood work and imaging studies. Blood work within normal limits. Hip x-ray showed bilateral osteoarthritis of the hips, bilateral arthritic changes SI joint left greater than right. Lumbar spine CT showed no acute fracture or subluxation but showed findings suggestive of prior L4 S5 decompression, fusion surgery, hardware intact. Findings also suggestive of mild to moderate multilevel neural foraminal stenosis. Physical Exam: Vitals signs as noted above General Appearance:Morbidly obese, no apparent distress Head: normocephalic, Atraumatic Eyes: normal inspection, EOMI Neck: supple, Trachea midline Respiratory/Chest: Normal breath sounds, CTA, No accessory muscle use Cardiovascular: S1, S2, No murmur Abdomen/GI:Soft, Non tender, Bowel sounds present Back:+ Low cloth finishing range back tender,+ straight leg raise test Extremities/Musculoskeletal:normal inspection, no edema Neurologic/Psych:AAOX3, grossly no focal neurological deficits Skin: normal color, warm Lumbar spinal stenosis with radiculopathy Ambulatory dysfunction secondary to above Osteoarthritis Morbid obesity Hypoxia likely multifactorial--JALEN, OHS, pain meds Agree with pain control, steroids, PT OT, fall precautions Consulted orthopedic spine surgery Hold Eliquis for possible procedure. Continue home medications for chronic conditions Given history of PE, paroxysmal A-fib, resume Eliquis as soon as possible if no plan for procedure I personally interviewed and examined the patient at bedside. I have reviewed the advanced practitioner's documentation on the date of service referred in note and agree with plan. Patient's care is coordinated with Sylvia METCALF. Please refer to the documentation above for details of patient's presentation and for discussion of other issues. I spent a total [id number] coordinating, documenting, and providing care for this patient excluding time spent in the performance of separately billed services or time spent by another provider/QHP.
--- NOTE | 2024-06-16 18:46 | XRay Report ---
EXAM: XR chest 1V portable CLINICAL HISTORY: EKG TECHNIQUE: An X-ray image of the chest is obtained in AP projection. COMPARISON: X-ray 11/06/2023 FINDINGS: Pulmonary Parenchyma: Unchanged bilateral prominent pulmonary vasculature. No evidence of consolidation, collapse, or focal opacities. No pulmonary nodules are identified. No evidence of pleural effusion or pleural thickening. Heart and Mediastinum: Mild cardiomegaly masking the left lower zone. No mediastinal widening or masses. No hilar or mediastinal lymphadenopathy. A pacemaker is noted, with pacemaker leads in satisfactory position. Cardiac monitoring electrodes. Bony Thorax: Bony thorax appears intact without fractures or deformities. Soft Tissues: Soft tissues overlying the chest wall are unremarkable. IMPRESSION: 1. Unchanged pulmonary congestion and mild cardiomegaly. 2. No acute cardiopulmonary abnormalities are identified. Electronically signed by Harpreet Carroll 06-16-2024 6:45 PM
--- OUTSIDE RECORDS SUMMARY | 2024-06-16 20:29 | External Medical Summary | Summary of Care ---
Author Name Unknown Organization [facility] Address [address] [place] [address] Phone [phone] Care Team Providers Care Respiratory Assistant Name Role Phone Naveed Peters MD Primary Care Provider [phone] Reason for Visit * Reason Comments eRx-Medication Refill Encounter Details Date Type Department Care Team (Late st Contact Info) Description 05/29/2024 Refill [facility] [address] [place] [address] Irish Richard, [address] [place], [place] [id number] Major depressive disorder, recurrent, moderate (HCC) Allergies Active Allergy Reactions Criticality Noted Date Comments Celecoxib Hives 12/27/1999 Latex Rash 07/11/2011 Lisinopril Cough 05/29/2014 documented as of this encounter (statuses as of 05/29/2024) Medications Aspirin 81 MG Tablet Take 1 Tablet by mouth in the morning. Active Cholecalciferol (VITAMIN D) 1000 UNIT Capsule Take 1 Cap by mouth daily. 30 Cap 11 01/25/20 15 Active acetaminophen (TYLENOL) 325 MG Tablet Take 2 Tabs by mouth every 6 hours as needed for Pain. 30 Tab 0 10/31/19 16 Active Ferrous Sulfate 325 (65 Fe) MG Oral Tablet (Feosol)Indicat ions:Iron deficiency anemia, unspecified iron deficiency anemia type Take by mouth 1 Tablet in the morning AND 1 Tablet before bedtime. 60 Tablet 11 10/10/19 22 Active Meclizine HCl 25 MG Oral Tablet (Antivert) Take 1 Tablet by mouth 3 times a day as needed. Active Fluticasone Propionate 50 MCG/ACT Nasal Suspension (Flonase) Administer 2 Sprays into each nostril in the morning. 9.9 mL 5 04/13/19 24 Active amLODIPine Besylate 5 MG Oral Tablet (Norvasc) Take 1 Tablet by mouth in the morning. 90 Tablet 3 06/10/19 24 Active Vitamin B-12 500 MCG Oral Tablet (vitamin B-12) Take 1 Tablet by mouth in the morning. Active Gabapentin 100 MG Oral Capsule (Neurontin) TAKE 2 CAPSULES BY MOUTH IN THE MORNING 2 AT NOON AND 3 AT BEDTIME 217 Capsule 5 02/21/19 25 Active Furosemide 20 MG Oral Tablet (Lasix)Indicati ons:Leg swelling Take 1 Tablet by mouth daily as needed for Other (Edema). Every Thursday, Thursday and 36 Tablet 1 03/02/19 25 Active Levothyroxine Sodium 75 MCG Oral Tablet (Levoxyl) Take 1 Tablet by mouth in the morning. (at least 30 min prior to breakfast or other meds). 90 Tablet 3 03/10/19 25 Active Cetirizine HCl 10 MG Oral Tablet (ZyrTEC) Take 1 Tablet by mouth in the morning. 90 Tablet 1 03/10/19 25 Active Metoprolol Succinate ER 25 MG Oral Tablet Extended Release 24 Hour (toPROL XL)Indications: PAF (paroxysmal atrial fibrillation) ([facility]) TAKE 1 TABLET BY MOUTH IN THE MORNING 90 Tablet 03/31/19 25 Active Apixaban 5 MG Oral Tablet (Eliquis) Take 1 Tablet by mouth in the morning and 1 Tablet before bedtime. 180 Tablet 1 04/04/19 25 Active Wegovy 0.5 MG/0.5ML Subcutaneous Solution Auto-injector (Semaglutide-We ight Management) Inject 0.5 mg under the skin once a week. 6 mL 1 04/08/19 25 Active Omeprazole 20 MG Oral Capsule Delayed Release (PriLOSEC)Indic ations:Gastroes ophageal reflux disease Take 2 capsules by mouth twice daily 360 Capsule 2 04/26/19 25 Active Losartan Potassium 100 MG Oral Tablet (Cozaar)Indicat ions:HTN, goal below 150/90 TAKE 1 TABLET BY MOUTH IN THE MORNING 90 Tablet 3 05/04/19 25 Active oxyCODONE HCl 5 MG Oral Tablet (Oxy IR)Indications: Chronic right-sided low back pain with right-sided sciatica Take 1.5 Tablets by mouth 2 times a day as needed for Pain, Severe. 90 Tablet 05/04/19 25 Active Atorvastatin Calcium 40 MG Oral Tablet (Lipitor)Indica tions:Coronary artery disease due to calcified coronary lesion,Dyslipid emia, goal LDL below 130 TAKE 1 TABLET BY MOUTH IN THE MORNING FOR CHOLESTEROL 90 Tablet 1 05/18/19 25 Active Amiodarone HCl 200 MG Oral Tablet (Cordarone) Take 1 tablet by mouth once daily 90 Tablet 05/18/19 25 Active Escitalopram Oxalate 20 MG Oral Tablet (Lexapro)Indica tions:Major depressive disorder, recurrent, moderate (HCC) TAKE 1 TABLET BY MOUTH IN THE MORNING 90 Tablet 2 05/30/19 25 Active Escitalopram Oxalate 20 MG Oral Tablet (Lexapro)Indica tions:Major depressive disorder, recurrent, moderate (HCC) Take 1 Tablet by mouth in the morning. 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 with discogenic back pain and lower extremity pain 03/10/2024 S/P lumbar fusion 03/10/2024 Hypertensive kidney disease 04/02/2023 Hypertensive heart and kidne y disease with chronic diastolic congestive heart failure and stage 2 chronic kidney disease 04/02/2023 Class 3 obesity with alveola r hypoventilation and body mass index (BMI) of 50.0 to 59.9 in adult 10/06/2022 Chronic kidney disease (CKD), stage II (mild) Wrist impingement syndrome, unspecified laterali ty 10/06/2022 Assessment & Plan (10/06/2022 3:44 PM EDT): Patient with history of CTS and surgery years ago, now with one month of sharp pain down both wrists without improvement with Tylenol or bracing. Possible impingement? Start prednisone 20 mg daily x7 days. Advised to consult with Orthopedic surgeon at appt on 10/17/22. May benefit from glucocorticoid injections. Middle ear effusion, left 10/06/2022 Assessment & Plan (10/06/2022 3:46 PM EDT): Patient with fullness of left ear without pain, fever or chills. Likely effusion. Advised to soak washcloth under water as warm as she can tolerate and apply under left ear for 15 minutes 4 times a day. Continue flonase 2 sprays up each nostril daily. Start OTC Claritin daily. Essential (primary) hypertension 03/21/2022 Assessment & Plan (03/21/2022 12:21 PM EST): BP stable -continue regimen as noted above Body mass index (BMI) of 50.0 to 59.9 in adult 0 03/21/2022 Hypothyroidism 06/07/2021 Assessment & Plan (03/21/2022 12:23 PM EST): Check TSH -continue Synthroid Assessment & Plan (12/07/2021 9:51 AM EDT): Continue synthroid Assessment & Plan (06/07/2021 12:13 PM EDT): Continue levoxyl Component Latest Ref Rng & Units 01/02/2021 TSH 0.27 - 4.20 uIU/mL 3.42 Cardiac pacemaker in situ 06/07/2021 Chronic low back pain 06/07/2021 Assessment & Plan (03/21/2022 12:24 PM EST): Still causing her problems -continue gabapentin at a lower dose, tramadol and Lidoderm patches -orthopedic appointment scheduled on 06/27 -will discuss other pain management options with her primary care physician Assessment & Plan (06/07/2021 1:05 PM EDT): Uses tylenol #3 prn Dysfunction of both eustachian tubes 06/07/2021 Assessment & Plan (06/07/2021 1:10 PM EDT): Advised nature of this and encouraged her to restart her flonase. Avoid decongestants. If symptoms persist, can see ENT. She voiced understanding. Old IN (myocardial infarction) 02/10/2018 Personal history of pulmonary embolism 8 Assessment & Plan (06/07/2021 1:08 PM EDT): On coumadin Stress-induced cardiomyopathy 10/29/2017 Benign paroxysmal positional vertigo of right ea r 03/03/2017 Major depressive disorder, recurrent, moderate 0 08/11/2016 Assessment & Plan (03/21/2022 12:25 PM EST): Slightly depressed about her back pain -continue Lexapro Assessment & Plan (12/07/2021 9:53 AM EDT): Symptoms controlled with lexapro Assessment & Plan (06/07/2021 12:12 PM EDT): She voices her ears being shut is making her a bit more depressed, no suicidal ideation. She continues lexapro. Hernia, hiatal 11/24/2015 Umbilical hernia 04/18/2015 Overview (04/18/2015): CT urogram 04/13/15: Fat containing Spigelian type hernia on the right. Small fat containing umbilical region hernia. JALEN on CPAP 02/27/2015 Overview (10/30/2016): Mild on sleep study 02/26/15 13 cm H2O per cpap titration 03/13/15 04/07/2016: reports insurance would not pay for cpap bc she was not using it consistently due to staying with her sister most days 10/16/16: Mild obstructive sleep apnea syndrome exacerbated to the severe degree during REM. These respiratory events were associated with oxygen desaturations (klever of 62 %).At a CPAP setting of 13 cmH2O, the apnea-hypopnea and arousal indices were normalized. At this setting, snoring was eliminated and oxygen saturation was maintained above 91 %. Assessment & Plan (03/21/2022 12:22 PM EST): Compliant with CPAP. Lumbosacral radiculopathy 02/08/2015 Overview (02/08/2015): On EMG 02/07/15 Vitamin B12 deficiency 02/05/2015 Overview (02/05/2015): Noted 12/31, intrinsic factor antibody negative 01/30 Dyslipidemia, goal LDL below 130 01/05/2015 Overview (01/05/2015): Statin stopped during 01/01/15 hospitalization at [facility] due to elevated LFTs Assessment & Plan (03/21/2022 12:22 PM EST): Continue atorvastatin Assessment & Plan (06/07/2021 1:02 PM EDT): Last LDL 65. Continue atorvastatin Paroxysmal A-fib 01/02/2015 Assessment & Plan (03/21/2022 12:21 PM EST): Rate stable -continue amiodarone, Eliquis Assessment & Plan (12/07/2021 9:50 AM EDT): Rate controlled -continue metoprolol, amiodarone, eliquis Assessment & Plan (06/07/2021 1:03 PM EDT): Followed by cardiology Rate controlled on amiodarone and metoprolol Continue warfarin stroke prophylaxis. Coronary artery disease due to calcified coronar y lesion 12/21/2014 Overview (12/21/2014): Cardiac cath 05/2006: 30% proximal LAD lesion Assessment & Plan (03/21/2022 12:21 PM EST): Continue atorvastatin, aspirin, losartan Assessment & Plan (06/07/2021 1:02 PM EDT): Continue asa 81mg and atorvastatin Gastroesophageal reflux disease without esophagi tis 03/03/2011 Assessment & Plan (03/21/2022 12:23 PM EST): Continue omeprazole Assessment & Plan (12/07/2021 9:53 AM EDT): Symptoms controlled with omeprazole Assessment & Plan (06/07/2021 12:16 PM EDT): Stable on omeprazole documented as of this encounter (statuses as of 05/29/2024) Resolved Problems Problem Noted Date Diagnosed Date Resolved Date Pulmonary embolism on right 03/21/2022 10/24/2022 Assessment & Plan (03/21/2022 12:22 PM EST): O2 stable -continue Eliquis Migraine without status migr ainosus, not intractable 06/07/2021 06/28/2021 Overview (06/28/2021): Duplicate Chronic kidney disease, stage 3a 08/27/2020 01/23/2021 Overview (01/23/2021): Per CKD protocol duplicate Hypertensive heart and kidne y disease with chronic diastolic congestive heart failure and stage 3a chronic kidney disease 07/31/202004/2022 Overview: Per CKD protocol Assessment & Plan (12/07/2021 9:49 AM EDT): At dry weight 313. BP high today. Consider med adjustment if up again next visit -for now, continue losartan, norvasc Assessment & Plan (06/07/2021 12:16 PM EDT): BP at goal on amlodipine and losartan. Euvolemic today Has lasix to use prn. Followed by cardiology Morbid obesity with body mas s index (BMI) of 45.0 to 49.9 in adult 06/18/2018 04/01/2022 Overview (04/01/2022): Progress Notes by PATRIZIA Chaudhry-C2/11/2022 Sign when Signing Visit Hemoglobin A1C Adult BMI 50.0-59.9 kg/sq m (HCC) - Hemoglobin A1C NO LONGER CURRENT Body mass index (BMI) of 40. 0 to 44.9 in adult 03/29/2018 06/29/2018 Overview: Per Obesity protocol #1 Morbid obesity with body mas s index (BMI) of 45.0 to 49.9 in adult 03/22/2018 04/01/2018 Overview: Per Obesity protocol #1 Hypertensive heart and kidne y disease with chronic diastolic congestive heart failure and stage 3 chronic kidney disease 03/22/201808/02 Overview: Per CKD protocol Pulmonary embolism on right 03/22/2018 10/28/2019 Kidney disease, chronic, sta ge III (GFR 30-59 ml/min) 03/01/2018 03/01/2020 Overview: Per CKD protocol #1 Migraine without aura and wi thout status migrainosus, not intractable 02/10/2018 12/08/2023 Assessment & Plan (06/07/2021 12:18 PM EDT): Denies any recent migraines. Tachy-jess syndrome 02/02/2018 023 Assessment & Plan (06/07/2021 12:19 PM EDT): S/p pacemaker Body mass index 45.0-49.9, adult 11/17/2017 04/01/2018 Mild depression 11/11/2017 08/20/2018 Prediabetes 11/11/2017 11/30/2017 Class 3 obesity due to exces s calories with serious comorbidity and body mass index (BMI) of 45.0 to 49.9 in adult 02/20/2017 11/17/2017 Body mass index (BMI) of 45. 0 to 49.9 in adult 11/17/2016 02/26/2017 Overview: Per Obesity protocol #1 Chronic diastolic congestive heart failure 11/24/2015 01/23/2021 Overview (01/23/2021): Duplicate Atrial fibrillation with RVR 11/21/2015 12/21/2015 IFG (impaired fasting glucose) 06/04/2015 11/17/2017 Overview (06/04/2015): FBG 06/01 = 109 Microscopic hematuria 03/15/20152016 Overview (05/16/2015): Cysto 05/16/15 normal Beta-joan intolerance 03/07/2015 Overview (03/07/2015): HR 46 on metoprolol 12.5 mg BID 02/21/15 Shortness of breath on exertion 01/04/2015 08/11/2016 Hypokalemia 01/02/2015 06/06/2015 Acute chest pain 12/26/2014 01/16/2016 Pulmonary embolism on right 12/26/2014 11/11/2017 Overview (01/24/2015): CT for PE 11/23/14: Nonocclusive pulmonary embolus within a segmental branch of the right lower lobe. No central pulmonary embolus. 12/31: factor V, prothrombin protein C&S, antithrombin III, homocysteine, cardiolipin negative Atypical chest pain 05/29/2014 12/04/19 16 Acute coronary syndrome 05/04/201405/17 NSTEMI (non-ST elevated myoc ardial infarction) 05/04/2014 05/29/2014 Depression 05/14/2011 11/11/2017 HTN, goal below 150/90 03/03/201106/07 Headache 08/11/2016 Overview (05/09/2015): ICD-10 update of inactive term Carpal tunnel syndrome 01/15 documented as of this encounter (statuses as of 05/29/2024) Immunizations Name Administration Dates Next Due COVID-19 mRNA, LNP-s, No Pre serve, 2-Dose Series ([employer]) 02/05/2021 COVID-19, MRNA-LNP, PF, 30 M CG/0.3 mL, 12 YRS AND ABOVE, IM (Panjiva-Comirnat) 01/26/2023 Pneumococcal Conjugate Vacc, 13 Valent (Prevnar) 01/16/2016 Pneumococcal Conjugate Vacci ne, 20-valent ([id number]) 10/09/2021 Pneumococcal Polysaccharide PPV23 (Pneumovax) 12/21/2014 Season Influenza, Quad, PF, Adjuvanted, 65+ Yrs, IM (FLUAD) 10/28/2019 Seasonal Influenza, High Dos e, Trivalent, PF, IM (Fluzone HD) 12/07/2023 Seasonal Influenza, PF, 6 M & above, IM , (FluLaval or Fluzone) 10/20/2017,01/01/2017 Seasonal Influenza, Quadriva lent Hd (Fluzone Hd) 01/26/2023,11/21/2021,11/08/2020 Seasonal Influenza, Quadriva lent, No Preserve, IM 11/06/2015,01/18/2015 Seasonal Influenza, Trivalen t, Adjuvanted, 65+ YRS, PF, (Fluad) 11/12/2018 TDAP (age 10 and older)(Boostrix) 11/27/2011 Varicella Zoster Vaccine Adult (Zostavax) 2015 Zoster Vaccine Recombinant (Shingrix) 05/16/2018 ,02/15/2018 documented as of this encounter Social History Tobacco Use Types Packs/Day Years Used Date Smoking Tobacco: Never Passive Smoke Exposure: Never Smokeless Tobacco: Never Alcohol Use Standard Drinks/Week Comments No 0 (1 standard drink = 0.6 oz pur e alcohol) PHQ-2 Answer Date Recorded PHQ Adult Total Score 2 12/07/2023 Hunger Vital Sign Answer Date Recorded Within the past 12 months, y ou worried that your food would run out before you got the money to buy more. Never true 12/07/19 24 Within the past 12 months, t he food you bought just didn't last and you didn't have money to get more. Never true 12/07/2023 Childcare Answer Date Recorded Do you feel overwhelmed with taking care of a child, family member or friend? No 12/07/2023 Does your family need help f inding childcare? (Household - for ages 0-17 years) Not on file 12/07/2023 Clothing Answer Date Recorded Have you been unable to get clothing when it was really needed? No 12/07/2023 Is your family able to get c lothes or diapers when needed? (Household - for ages 0-17 years) Not on file 12/07/2023 Personal Safety Answer Date Recorded Do you feel unsafe or have concerns for your saf ety? No 12/07/2023 Do you have concerns for you r family's safety? (Household - for ages 0-17 years) Not on file 12/07/2023 Utilities Answer Date Recorded Do you have trouble paying y our heating, water, or electric bill? No 12/07/2023 Is your family able to pay t he heat, water, or electric bill? (Household - for ages 0-17 years) Not on file 12/07/2023 Does your family have access to good internet? (Household - for ages 0-17 years) Not on file 12/07/2023 Employment Status Answer Date Recorded Are you unemployed or without regular income? No 12/07/2023 Does the household have a re lar source of income? (Household - for ages 0-17 years) Not on file 12/07/2023 Social Connections Answer Date Recorded How often do you feel lonely or isolated from th ose around you? Never 12/07/2023 Financial Resource Strain Answer Date R ecorded Do you have any trouble payi ng for your medications, or do you think you might in the future? No 12/07/2023 Does your family have troubl e paying for medicine? (Household - for ages 0-17 years) Not on file 12/07/2023 Transportation Needs Answer Date Record ed Do you have trouble getting a ride to medical visits or work? (Adult - for ages 18 years and over) Not on file 12/07/2023 Does your family have a hard time getting a ride to doctors visits? (Household - for ages 0-17 years) Not on file 12/07/2023 Has lack of transportation k ept you from medical appointments, meetings, work, or from getting things needed for daily living? Check all that apply. No 12/07/2023 Do you (or your family) have trouble finding or paying for a ride (transportation)? (Household - for ages 0-17 years) Not on file 12/07/2023 Housing Stability Answer Date Recorded Do you currently live in a s helter or have no steady place to sleep at night? No 12/07/2023 Do you think you are at risk of becoming homeless? (Adult - for ages 18 years and over) Not on file 12/07/2023 Does your family worry about paying for your home or becoming homeless? (Household - for ages 0-17 years) Not on file 1 Are you homeless or worried that you might be in the future? No 12/07/2023 Are you (or your family) eddie eless or worried that you might be in the future? (Household - for ages 0-17 years) Not on file Food Insecurity Answer Date Recorded Do you need food for this week? No 12/07/2023 Are you able to get enough f ood for your family? (Household - for ages 0-17 years) Not on file 12/07/2023 Does your family need food t his week? (Household - for ages 0-17 years) Not on file 12/07/2023 Do you always have enough fo od for your family? (Household - for ages 0-17 years) Not on file 12/07/2023 Food Insecurity Answer Date Recorded Within the past 12 months, y ou worried that your food would run out before you got the money to buy more. Never true 12/07/19 24 Within the past 12 months, t he food you bought just didn't last and you didn't have money to get more. Never true 12/07/2023 Do you need food for this week? No 12/07/2023 Comments No Sex and Gender Information Value Date Recorded Sex Assigned at Female 10/05/2022 3:34 PM EDT Legal Sex Female 7:13 AM EST Gender Identity Female 10/05/2022 3:34 PM EDT Sexual Orientation Straight 11/07/2019 10 :13 AM EDT Occupation Industry Job Start Date Job End Date retired Not on file Not on file Not on file documented as of this encounter Functional Status * Are you deaf or do you have serious difficulty hearing? Answer Date of Assessment Author No 11/21/2015 12:20 AM EDT Nancy Jose RN * Are you blind or do you have serious difficulty seeing, even when wearing glasses? Answer Date of Assessment Author No 11/21/2015 12:20 AM Nancy Euceda RN * Do you have serious difficulty walking or climbing stairs? (5 years old or older) Answer Date of Assessment Author No 11/21/2015 12:20 AM Nancy Euceda RN * Do you have difficulty dressing or bathing? (5 years old or older) Answer Date of Assessment Author No 11/21/2015 12:20 AM Nancy Euceda RN * Because of a physical, mental, or emotional condition, do you have difficulty doing errands alone such as visiting a doctor’s office or shopping? (15 years old or older) Answer Date of Assessment Author No 11/21/2015 12:20 AM Nancy Euceda RN documented as of this encounter Mental Status * Because of a physical, mental, or emotional condition, do you have serious difficulty concentrating, remembering, or making decisions? (5 years old or older) Answer Entry Date Author No 11/21/2015 12:20 AM Nancy Euceda RN documented in this encounter Miscellaneous Notes * Telephone Encounter - Clair Nevarez RPh - 05/29/2024 6:51 PM EDT Signed Prescriptions: Disp Refills Escitalopram Oxalate 20 MG Oral Tablet (Le*90 Tab*2 Sig: TAKE 1 TABLET BY MOUTH IN THE MORNINGAuthorizing Provider: Blanquita PETERS User: CLAIR NEVAREZ- documented in this encounter Plan of Treatment Upcoming Encounters Date Type Department Care Team (Latest Contact Info) Description 07/07/2024 10:15 AM EDT Hospital Encounter OR [facility], Operating Room, [facility] - 4th Floor [address] [place] [address] [place] [id number] Jong Myers, [address] [place] [id number] 07/07/2024 10:15 AM EDT - 07/07/2024 10:56 AM EDT Surgery OR [facility], Operating Room, [facility] - 4th Floor [address] [place] [phone] Jong Myers, DO [address] [place] [address] COLONOSCOPY FLEXIBLE PROXIMAL DIAGNOSTIC Scheduled Procedures Name Priority Associated Diagnoses Date/Ti me COLONOSCOPY FLEXIBLE PROXIMAL DIAGNOSTIC Recall Personal history of colonic polyps 07/07/2024 10:15 AM EDT Health Maintenance Due Date Last Done Comments Cologuard 10/02/1995 Fecal Occult Blood Test 10/02/1995 Sigmoidoscopy 10/02/1995 Adult Wellness Visit 2016 Colonoscopy 07/17/2021 07/18/2011, 07/18/2011 Colorectal Cancer Screening 07/17/2021 DTap/Tdap Vaccines (2 - Td or Tdap) 11/26/2021 11/27/2011 DXA Scan 12/20/2022 12/21/2015 COVID-19 Vaccine ( season) 2023 01/26/2023, 02/05/2021, 07/12/2020, Additional history exists *NEPHROLOGY REFERRAL DUE TO RESISTANT HTN 05/26/2024 Depression Monitoring 12/06/2024 12/07/2023 GFR 03/29/2025 03/29/2024, 11/17, 04/07/2023, Additional history exists TSH 03/29/2025 03/29/2024, 08/16, 04/07/2023, Additional history exists Mammogram 05/24/2025 05/24/2024, 08/2022, 04/22/2022, Additional history exists Albumin/Creatinine Ratio 12/06/2026 12/07/2023 Zoster Vaccines Completed 05/16/2018, 01/18, 05/07/2015 Pneumococcal Vaccine: 50+ Years Completed 10/09/2021, 01/16/2016, 12/21/2014 Influenza Vaccine (FLU shot) Completed , 01/26/2023, 11/21/2021, Additional history exists HPV (Gardasil) Vaccine Aged Out No lo nger eligible based on patient's age to complete this topic Hepatitis B Vaccine Aged Out No longe r eligible based on patient's age to complete this topic MENINGOCOCCAL (MENACTRA/MENVEO) Aged Out No longer eligible based on patient's age to complete this topic Meningitis B Vaccine (Bexsero/Trumemba) Aged Out No longer eligible based on patient's age to complete this topic documented as of this encounter Medical Devices Not on filedocumented as of this encounter Visit Diagnoses Diagnosis Advanced care planning/counseling discussion- Primary Other specified counseling Major depressive disorder, recurrent, moderate (HCC) Major depressive disorder, recurrent episode, moderate Migraine without status migrainosus, not intractable, unspecified migraine type Coronary artery disease due to calcified coronary lesion Hypothyroidism, unspecified type Gastroesophageal reflux disease without esophagitis Esophageal reflux Dyslipidemia, goal LDL below 130 Other and unspecified hyperlipidemia Hypertensive heart and kidney disease with chronic diastolic congestive heart failure and stage 3a chronic kidney disease ([facility]) Tachy-jess syndrome ([facility]) Sinoatrial node dysfunction Cardiac pacemaker in situ Personal history of pulmonary embolism Chronic low back pain, unspecified back pain laterality, unspecified whether sciatica present Dysfunction of both eustachian tubes Dysfunction of Eustachian tube Obesity, morbid (more than 100 lbs over ideal weight or BMI > 40) ([facility]) Morbid obesity Chronic bilateral low back pain with bilateral sciatica- Primary Cardiac pacemaker in situ Hypertensive heart and kidney disease with chronic diastolic congestive heart failure and stage 3a chronic kidney disease (HCC) Paroxysmal A-fib (HCC) Atrial fibrillation Hypothyroidism, unspecified type Gastroesophageal reflux disease without esophagitis Esophageal reflux Major depressive disorder, recurrent, moderate (HCC) Major depressive disorder, recurrent episode, moderate Paroxysmal A-fib (HCC)- Primary Atrial fibrillation Major depressive disorder, recurrent, moderate (HCC) Major depressive disorder, recurrent episode, moderate PAF (paroxysmal atrial fibrillation) ([facility]) Atrial fibrillation Essential (primary) hypertension Unspecified essential hypertension Coronary artery disease due to calcified coronary lesion Adult BMI 50.0-59.9 kg/sq m (HCC) Body Mass Index 50.0-59.9, adult Pulmonary embolism on right (HCC) Other pulmonary embolism and infarction JALEN on CPAP Obstructive sleep apnea (adult) (pediatric) Dyslipidemia, goal LDL below 130 Other and unspecified hyperlipidemia Hypothyroidism, unspecified type Gastroesophageal reflux disease without esophagitis Esophageal reflux 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, unspecified laterality- Primary Middle ear effusion, left Class 3 obesity with alveolar hypoventilation and body mass index (BMI) of 50.0 to 59.9 in adult, unspecified whether serious comorbidity present (HCC) Chronic kidney disease (CKD), stage II (mild) Chronic kidney disease, Stage II (mild) Major depressive disorder, recurrent, moderate (HCC) Major depressive disorder, recurrent episode, moderate Personal history of colonic polyps documented in this encounter Advance Directives * Full Code (Latest Code Status on File) Date Activated Date Inactivated Comments 11/21/2015 12:40 AM 11/24/2015 5:28 PM This order reflects the patients wishes and were consensually agreed upon. Question Answer Comments Discussion of Advance Directives occurred with: Patient Does the patient have a Living Will? No Does the patient have Health Care Power of Attor flavia? No * Full Code Date Activated Date Inactivated Comments 10/31/2015 4:12 AM 10/31/2015 6:15 PM This order r eflects the patients wishes and were consensually agreed upon. * Full Code Date Activated Date Inactivated Comments 01/05/2015 7:41 PM 01/09/2015 4:14 PM This order reflects the patients wishes and were consensually agreed upon. Question Answer Comments Discussion of Advance Directives occurred with: Patient Does the patient have a Living Will? No Does the patient have Health Care Power of Attor flavia? No * Full Code Date Activated Date Inactivated Comments 01/02/2015 5:27 AM 01/05/2015 5:07 PM This order reflects the patients wishes and were consensually agreed upon. Healthcare Agents on File Name Relationship Healthcare Agent [facility] p Communication Drew Banerjee Adult Child First Alternate Health Care Agent Care Teams Respiratory Assistant Relationship Specialty Start Date End Date Naveed Peters MD [address] [place] [phone] PCP - General Internal Medicine 12/15/23 documented as of this encounter
--- OUTSIDE RECORDS SUMMARY | 2024-06-16 20:29 | External Medical Summary | Summary of Care ---
Author Name Unknown Organization [facility] Address [address] [place] [address] Phone [phone] Care Team Providers Care Embedded Hardware Engineer Name Role Phone Naveed Peters MD Primary Care Provider Reason for Visit * Reason Comments eRx-Medication Refill Encounter Details Date Type Department Care Team (Late st Contact Info) Description 06/06/2024 Refill [facility] [place] [address] [phone] Naveed Peters MD [address] [facility] [place] [address] Allergies Active Allergy Reactions Criticality Noted Date Comments Celecoxib Hives 12/27/1999 Latex Rash 07/11/2011 Lisinopril Cough 05/29/2014 documented as of this encounter (statuses as of 06/07/2024) Medications Aspirin 81 MG Tablet Take 1 [...] morning. 9.9 mL 5 04/13/19 24 Active Vitamin B-12 500 MCG Oral [...] Hour (toPROL XL)Indications: PAF (paroxysmal atrial fibrillation) ([facility]) TAKE 1 TABLET BY MOUTH IN THE MORNING 90 Tablet 03/31/19 25 Active Apixaban 5 MG Oral Tablet (Eliquis) Take 1 Tablet by mouth in the morning and 1 Tablet before bedtime. 180 Tablet 1 04/04/19 25 Active Omeprazole 20 MG Oral Capsule Delayed Release (PriLOSEC)Indic ations:Gastroes ophageal reflux disease Take 2 capsules by mouth twice daily 360 Capsule 2 04/26/19 25 Active Losartan Potassium 100 MG Oral Tablet (Cozaar)Indicat ions:HTN, goal below 150/90 TAKE 1 TABLET BY MOUTH IN THE MORNING 90 Tablet 3 05/04/19 25 Active Atorvastatin Calcium 40 MG [...] MORNING 90 Tablet 2 05/30/19 25 Active oxyCODONE HCl 5 MG Oral Tablet (Oxy IR)Indications: Chronic right-sided low back pain with right-sided sciatica Take 1.5 Tablets by mouth 2 times a day as needed for Pain, Severe. 90 Tablet 06/01/19 25 Active Wegovy 1 MG/0.5ML Subcutaneous Solution Auto-injector (Semaglutide-We ight Management) Inject 1 mg under the skin once a week. 3 mL 1 06/01/19 25 Active amLODIPine Besylate 5 MG Oral Tablet (Norvasc) TAKE 1 TABLET BY MOUTH IN THE MORNING 90 Tablet 1 06/08/19 25 Active amLODIPine Besylate 5 MG Oral Tablet (Norvasc) Take 1 Tablet by mouth in the morning. 90 Tablet 3 06/10/19 24 025 Discontinued documented as of this encounter (statuses as of 06/07/2024) Active Problems Problem Noted Date Diagnosed Date [...] Advised to consult with Orth[facility] surgeon [facility] on 10[facility]17[facility]22. May benefit from glucocorticoid injections. [...] can see ENT. She voiced understanding. Old PA (myocardial infarction) 02/10/2018 Personal history of pulmonary [...] (01/05/2015): Statin stopped during 01/01/15 hospitalization at [facility] due to elevated LFTs Assessment & Plan [...] as of this encounter (statuses as of 06/07/2024) Resolved Problems Problem Noted Date Diagnosed Date [...] failure and stage 3a chronic kidney disease 07/31/2020 02/0 04/2022 Overview: Per CKD protocol Assessment & Plan [...] as of this encounter (statuses as of 06/07/2024) Immunizations Name Administration Dates Next Due COVID-19 mRNA, LNP-s, No Pre serve, 2-Dose Series ([facility]) 02/05/2021 COVID-19, MRNA-LNP, PF, 30 M CG/0.3 mL, 12 YRS AND ABOVE, [facility] 01/26/2023 Pneumococcal Conjugate Vacc, 13 Valent (Prevnar) 01/16/2016 Pneumococcal Conjugate Vacci ne, 20-valent ([id number]) 10/09/2021 Pneumococcal Polysaccharide PPV23 (Pneumovax) 12/21/2014 Season [...] 11/21/2015 12:20 AM Nancy Euceda RN * Are you blind or do [...] encounter Miscellaneous Notes * Telephone Encounter - Alicia Starr RPh - 06/07/2024 12:49 PM EDT Signed Prescriptions: Disp Refills amLODIPine Besylate 5 MG Oral Tablet (Norv*90 Tab*1 Sig: TAKE 1 TABLET BY MOUTH IN THE MORNINGAuthorizing Provider: Blanquita PETERS User: ALICIA STARR- documented in this encounter Plan of Treatment Upcoming Encounters Date Type Department Care Team (Latest Contact Info) Description 07/07/2024 10:15 AM EDT Hospital Encounter OR [facility], Operating Room, [facility] - 4th Floor [address] [place] [phone] Jong Myers, DO [address] [place] [address] 07/07/2024 10:15 AM EDT - 07/07/2024 10:56 AM EDT Surgery OR [facility], Operating Room, [facility] - 4th Floor [address] [place] [address] Jong Myers, DO [address] [place] [address] COLONOSCOPY FLEXIBLE PROXIMAL DIAGNOSTIC Scheduled Procedures Name [...] 2023 01/26/2023, 02/05/2021, 07/12/2020, Additional history exists Depression Monitoring 12/06/2024 12/07/2023 GFR 03/29/2025 03/29/2024, 11/17, 04/07/2023, Additional history exists TSH 03/29/2025 03/29/2024, 08/16, 04/07/2023, Additional history exists Mammogram 05/24/2025 05/24/2024, 0308/2022, 04/22/2022, Additional history exists Albumin/Creatinine Ratio 12/06/2026 [...] Not on filedocumented as of this encounter Advance Directives * Full Code [...] Agents on File Name Relationship Healthcare Agent Relationshi p Communication Drew Banerjee Adult Child First Alternate Health Care Agent Care Teams Embedded Hardware Engineer Relationship Specialty Start Date End Date Naveed Peters MD [address] [phone] PCP - General Internal Medicine 12/15/23 documented as of this encounter
--- OUTSIDE RECORDS SUMMARY | 2024-06-16 20:29 | External Medical Summary | Summary of Care ---
Author Name Unknown Organization [facility] Address [address] [place] [place] [address] Phone [phone] Care Team Providers Care Branding Machine Tender Name Role Phone Naveed Peters MD Primary Care Provider [phone] Reason for Visit * Reason Onset Date Comments Medication Refill 05/30/2024 Encounter Details Date Type Department Care Team (Late st Contact Info) Description 05/30/2024 Refill [facility] [address] [facility] [place] [address] Naveed Peters MD [address] [place] [address] Chronic right-sided low back pain with right-sided sciatica Allergies Active Allergy Reactions Criticality Noted Date Comments Celecoxib Hives 12/27/1999 Latex Rash 07/11/2011 Lisinopril Cough 05/29/2014 documented as of this encounter (statuses as of 05/31/2024) Medications Aspirin 81 MG Tablet Take 1 Tablet by mouth in the morning. Active Cholecalciferol (VITAMIN D) 1000 UNIT Capsule Take 1 Cap by mouth daily. 30 Cap 11 01/25/20 15 Active acetaminophen (TYLENOL) 325 MG Tablet Take 2 Tabs by mouth every 6 hours as needed for Pain. 30 Tab 0 10/31/19 16 Active Ferrous Sulfate 325 (65 Fe) MG Oral Tablet (Feosol)Indicati ons:Iron deficiency anemia, unspecified iron deficiency anemia type [...] 25 Active Furosemide 20 MG Oral Tablet (Lasix)Indicatio ns:Leg swelling Take 1 Tablet by mouth daily [...] Oral Tablet Extended Release 24 Hour (toPROL XL)Indications:P AF (paroxysmal atrial fibrillation) (HCC) TAKE 1 TABLET BY MOUTH IN THE MORNING 90 Tablet 03/31/19 25 Active Apixaban 5 MG Oral Tablet (Eliquis) Take 1 Tablet by mouth in the morning and 1 Tablet before bedtime. 180 Tablet 1 04/04/19 25 Active Wegovy 0.5 MG/0.5ML Subcutaneous Solution [facility] Inject 0.5 mg under the skin once a week. 6 mL 1 04/08/19 25 Active Omeprazole 20 MG Oral Capsule Delayed Release (PriLOSEC)Indica tions:Gastroesop hageal reflux disease Take 2 capsules by mouth twice daily 360 Capsule 2 04/26/19 25 Active Losartan Potassium 100 MG Oral Tablet (Cozaar)Indicati ons:HTN, goal below 150/90 TAKE 1 TABLET BY MOUTH IN THE MORNING 90 Tablet 3 05/04/19 25 Active Atorvastatin Calcium 40 MG Oral Tablet (Lipitor)Indicat ions:Coronary artery disease due to calcified coronary lesion,Dyslipide santa, goal LDL below 130 TAKE 1 TABLET BY MOUTH IN THE MORNING FOR CHOLESTEROL 90 Tablet 1 05/18/19 25 Active Amiodarone HCl 200 MG Oral Tablet (Cordarone) Take 1 tablet by mouth once daily 90 Tablet 05/18/19 25 Active Escitalopram Oxalate 20 MG Oral Tablet (Lexapro)Indicat ions:Major depressive disorder, recurrent, moderate (HCC) TAKE 1 TABLET BY MOUTH IN THE MORNING 90 Tablet 2 05/30/19 25 Active oxyCODONE HCl 5 MG Oral Tablet (Oxy IR)Indications:C hronic right-sided low back pain with right-sided sciatica Take 1.5 Tablets by mouth 2 times a day as needed for Pain, Severe. 90 Tablet 06/01/19 25 Active oxyCODONE HCl 5 MG Oral Tablet (Oxy IR)Indications:C hronic right-sided low back pain with right-sided sciatica Take 1.5 Tablets by mouth 2 times a day as needed for Pain, Severe. 90 Tablet 05/04/19 25 025 Discontin ued(Refil l) documented as of this encounter (statuses as of 05/31/2024) Active Problems Problem Noted Date Diagnosed Date [...] can see ENT. She voiced understanding. Old IA (myocardial infarction) 02/10/2018 Personal history of pulmonary [...] (01/05/2015): Statin stopped during 01/01/15 hospitalization at [facility] due to elevated LFTs Assessment & Plan [...] as of this encounter (statuses as of 05/31/2024) Resolved Problems Problem Noted Date Diagnosed Date [...] and stage 3a chronic kidney disease 07/31/2020 02/04/2022 Overview: Per CKD protocol Assessment & Plan [...] Denies any recent migraines. Tachy-jess syndrome 02/02/2018 02 023 Assessment & Plan (06/07/2021 12:19 PM [...] as of this encounter (statuses as of 05/31/2024) Immunizations Name Administration Dates Next Due COVID-19 mRNA, LNP-s, No Pre serve, 2-Dose Series ([employer]) 02/05/2021 COVID-19, MRNA-LNP, PF, 30 M CG/0.3 mL, 12 YRS AND ABOVE, IM (PFIZER-Comirnaty) 01/26/2023 Pneumococcal Conjugate Vacc, 13 Valent (Prevnar) 01/16/2016 Pneumococcal Conjugate Vacci ne, 20-valent ([id number]) 10/09/2021 Pneumococcal Polysaccharide PPV23 (Pneumovax) 12/21/2014 Season [...] No 12/07/2023 Does the household have a [facility] source [facility] income? (Household - for ages [...] encounter Miscellaneous Notes * Telephone Encounter - Naveed Peters MD - 05/31/2024 10:13 AM EDTSigned Prescriptions: Disp Refills oxyCODONE HCl 5 MG Oral Tablet (Oxy IR) 90 Tab*0 Sig: Take 1.5 Tablets by mouth 2 times a day as needed for Pain, Severe. Authorizing Provider: NAVEED PETERS * Telephone Encounter - Yunier Nur [facility] - 05/31/2024 8:38 AM EDT Pending Prescriptions: Disp Refills oxyCODONE HCl 5 MG Oral Tablet (Oxy IR) 90 Tab*0 Sig: Take 1.5 Tablets by mouth 2 times a day as needed for Pain, Severe. * Telephone Encounter - Yunier Nur [facility] - 05/31/2024 8:36 AM EDT I have reviewed the patient’s controlled substance dispensing history in the Prescription Drug Monitoring Program in compliance with the [facility] regulations before prescribing a controlled substance. PDMP checked on 05/31/2024. Pending Prescriptions: Disp Refills oxyCODONE HCl 5 MG Oral Tablet (Oxy IR) 90 Tab*0 Sig: Take 1.5 Tablets by mouth 2 times a day as needed for Pain, Severe. Last Visit: Visit date not found (in office), 04/15/2024 (telemedicine) Next Visit: Visit date not found Date medication was last filled: 05/03/24 Date medication is due for refill: 05/31/24 Pharmacy: [facility] [id number] [facility] Is this request for a controlled substance? Yes and Urine Drug Screen was completed Toxicology results: Results for orders placed or performed in visit on 12/07/23 TOXICOLOGY, URINE SCREEN W/ CONFIRMATION Result Value Amphetamines Screen, U Negative Benzodiazepines Screen, U Negative Cannabinoids Screen, U Negative Cocaine Metabolite Screen, U Negative Fentanyl Screen, U Negative Hydrocodone Screen, U Negative Methadone Metabolite Screen, U Negative Morphine/Codeine Screen, U Negative Oxycodone Screen, U Positive (A) Narrative Cutoff Concentrations: Drug Level Amphetamines 500 ng/mL Benzodiazepines 100 ng/mL Cannabinoids 50 ng/mL Cocaine Metabolite 150 ng/mL Fentanyl 1 ng/mL Hydrocodone / Hydromorphone 300 ng/mL Methadone Metabolite 100 ng/mL Morphine / Codeine 300 ng/mL Oxycodone / Oxymorphone 100 ng/mL Screening results are presumptive and can only be used for medical purposes. Positive screening results are reflexed to confirmatory testing. *Note: Due to a large number of results and/or encounters for the requested time period, some results have not been displayed. A complete set of results can be found in Results Review. Please approve if appropriate. Thanks, Yunier Nur, PharmD Clinical Pharmacist [facility] ([facility]) [phone] 05/31/2024, 8:37 AM documented in this encounter Plan of Treatment Upcoming Encounters Date Type Department Care Team (Latest Contact Info) Description 07/07/2024 10:15 AM EDT Hospital Encounter OR [facility], Operating Room, [facility] - 4th Floor [address] [facility] [phone] Jong Myers, DO [address] [place] [address] 07/07/2024 10:15 AM EDT - 07/07/2024 10:56 AM EDT Surgery OR [facility], Operating Room, [facility] - 4th Floor [address] [place] [phone] Jong Myers, DO [address] [place] [address] COLONOSCOPY FLEXIBLE PROXIMAL DIAGNOSTIC Scheduled Procedures Name [...] and stage 3a chronic kidney disease (HCC) Tachy-jess syndrome (HCC) Sinoatrial node dysfunction Cardiac pacemaker in situ Personal history of pulmonary embolism Chronic low back pain, unspecified back pain laterality, unspecified whether sciatica present Dysfunction of both eustachian tubes Dysfunction of Eustachian tube Obesity, morbid (more than 100 lbs over ideal weight or BMI > 40) (HCC) Morbid obesity Chronic bilateral low back pain [...] recurrent episode, moderate PAF (paroxysmal atrial fibrillation) (HCC) Atrial fibrillation Essential (primary) hypertension Unspecified essential [...] (mild) Chronic kidney disease, Stage II (mild) Chronic right-sided low back pain with right-sided sciatica Personal history of colonic polyps documented in [...] Agents on File Name Relationship Healthcare Agent Relationsde p Communication Drew Banerjee Adult Child First Alternate Health Care Agent Care Teams Branding Machine Tender Relationship Specialty Start Date End Date Naveed Peters MD [address] [place] [address] PCP - General Internal Medicine 12/15/23 documented as of this encounter
--- OUTSIDE RECORDS SUMMARY | 2024-06-16 20:30 | External Medical Summary | Summary of Care ---
Author Name Unknown Organization [facility] Address [address] [facility] [place] [address] Phone [phone] Care Team Providers Care Assistant Clinical Nurse Manager Name Role Phone Naveed Peters MD Primary Care Provider [phone] Reason for Visit * Reason Onset Date Comments [facility]: Maintenance 05/17/2024 Encounter Details Date Type Department Care Team (Late st Contact Info) Description 05/17/2024 Telephone [facility], [facility] [address] [place] [address] Agustina Dai, RN [address] [place] [address] [facility]: Maintenance Allergies Active Allergy Reactions Criticality Noted Date Comments Celecoxib Hives 12/27/1999 Latex Rash 07/11/2011 Lisinopril Cough 05/29/2014 documented as of this encounter (statuses as of 05/17/2024) Medications Aspirin 81 MG Tablet Take 1 [...] morning. 9.9 mL 5 04/13/19 24 Active Escitalopram Oxalate 20 MG Oral Tablet (Lexapro)Indica tions:Major depressive disorder, recurrent, moderate (HCC) Take 1 Tablet by mouth in the morning. 90 Tablet 3 06/10/19 24 Active amLODIPine Besylate 5 MG Oral Tablet (Norvasc) Take 1 Tablet by mouth in the morning. 90 Tablet 06/10/19 24 Active Vitamin B-12 500 MCG [...] morning. 90 Tablet 1 03/10/19 25 Active methylPREDNISol one 4 MG Oral Tablet Therapy Pack (Medrol Dosepack) follow package directions 21 Tablet 03/29/19 25 Active Metoprolol Succinate ER 25 MG Oral Tablet Extended Release 24 Hour (toPROL XL)Indications: PAF (paroxysmal atrial fibrillation) (HCC) TAKE 1 TABLET BY MOUTH IN THE MORNING 90 Tablet 03/31/19 25 Active Apixaban 5 MG Oral Tablet (Eliquis) Take 1 Tablet by mouth in the morning and 1 Tablet before bedtime. 180 Tablet 1 04/04/19 25 Active Wegovy 0.5 MG/0.5ML Subcutaneous Solution Auto-injector ([facility]) Inject 0.5 mg under the skin [...] tablet by mouth once daily 90 Tablet 02/17/19 25 025 Discontinued documented as of this encounter (statuses as of 05/17/2024) Active Problems Problem Noted Date Diagnosed Date [...] (01/05/2015): Statin stopped during 01/01/15 hospitalization at [facility] due to elevated LFTs Assessment [...] as of this encounter (statuses as of 05/17/2024) Resolved Problems Problem Noted Date Diagnosed Date [...] cardiolipin negative Atypical chest pain 05/29/2014 12/04/19 Acute coronary syndrome 05/04/201405/17 NSTEMI (non-ST elevated myoc ardial infarction) 05/04/2014 05/29/2014 Depression 05/14/2011 11/11/2017 HTN, goal below 150/90 03/03/201106/07 Headache 08/11/2016 Overview (05/09/2015): ICD-10 update of inactive term Carpal tunnel syndrome 01/15 documented as of this encounter (statuses as of 05/17/2024) Immunizations Name Administration Dates Next Due COVID-19 mRNA, LNP-s, No Pre serve, 2-Dose Series ([place]) 02/05/2021 COVID-19, MRNA-LNP, PF, 30 M CG/0.3 mL, 12 YRS AND ABOVE, IM (PFIZER-Comirnaty) 01/26/2023 Pneumococcal Conjugate Vacc, 13 Valent (Prevnar) 01/16/2016 Pneumococcal Conjugate Vacci ne, 20-valent ([id number]) 10/09/2021 Pneumococcal Polysaccharide PPV23 (Pneumovax) 12/21/2014 Season [...] 10 and older)(Boostrix) 11/27/2011 Varicella Zoster Vaccine (Adult) 05/07/2015 Zoster Vaccine Recombinant (Shingrix) 05/16/2018 ,02/15/2018 documented [...] 12/07/2023 Does the household have a re gular source of income? (Household - for ages [...] 12:20 AM EDT Nancy Jose RN * Do you have difficulty dressing [...] encounter Miscellaneous Notes * Telephone Encounter - Agustina Dai RN - 05/17/2024 2:20 PM EDT Spoke with pt via phone. She has not needed [facility] services. She has not had any recent utilizations She has been in contact with her pcp office for any needs. She will continue to reach out to her PCP for any future needs Graduated from [facility] at this time. documented in this encounter Plan of Treatment Upcoming Encounters Date Type Department Care Team (Latest Contact Info) Description 05/24/2024 2:45 PM EDT Imaging Radiology [facility]st [facility] [address] [place] [phone] 05/24/2024 3:30 PM EDT Office Visit Cardiology, [facility] [address] [place] [phone] Yulia Almonte CRNP [address] [place] [address] [place] [address] 07/07/2024 10:25 AM EDT Hospital Encounter OR [facility], Operating Room, [facility] - 4th Floor [address] [place] [address] [phone] Jong Myers, DO [address] [place] [address] 07/07/2024 10:25 AM EDT - 07/07/2024 11:06 AM EDT Surgery OR [facility], Operating Room, [facility] - 4th Floor [address] [address] [phone] Jong Myers, DO [address] [place] [address] COLONOSCOPY FLEXIBLE PROXIMAL DIAGNOSTIC Scheduled Procedures Name Priority Associated Diagnoses Date/Ti me COLONOSCOPY FLEXIBLE PROXIMAL DIAGNOSTIC Recall Personal history of colonic polyps 07/07/2024 10:25 AM EDT Health Maintenance Due Date Last Done Comments Cologuard 10/02/1995 Fecal Occult Blood Test 10/02/1995 Sigmoidoscopy 10/02/1995 Adult Wellness Visit 2016 Colonoscopy 07/17/2021 07/18/2011, 07/18/2011 Colorectal Cancer Screening 07/17/2021 DTap/Tdap Vaccines (2 - Td or Tdap) 11/26/2021 11/27/2011 DXA Scan 12/20/2022 12/21/2015 Mammogram 04/23/2023 04/22/2022, 03/0 08/2022, 11/08/2020, Additional history exists COVID-19 Vaccine ( season) 2023 01/26/2023, 02/05/2021, 07/12/2020, Additional history exists Depression Monitoring 12/06/2024 12/07/2023 GFR 03/29/2025 03/29/2024, 11/17, 04/07/2023, Additional history exists TSH 03/29/2025 03/29/2024, 08/16, 04/07/2023, Additional history exists Albumin/Creatinine Ratio 12/06/2026 12/07/2023 Zoster Vaccines Completed 05/16/2018, 12/02/2017, 05/07/2015 Pneumococcal Vaccine: 50+ Years Completed 10/09/2021, [...] First Alternate Health Care Agent Care Teams Assistant Clinical Nurse Manager Relationship Specialty Start Date End Date Naveed Peters MD [address] [place] [address] PCP - General Internal Medicine 12/15/23 documented as of this encounter
--- OUTSIDE RECORDS SUMMARY | 2024-06-16 20:30 | External Medical Summary | Summary of Care ---
Author Name Unknown Organization [facility] Address [address] [place] [address] Phone [phone] Care Team Providers Care Hydrogenation Still Operator Name Role Phone Naveed Peters MD Primary Care Provider [phone] Reason for Visit * Reason Comments eRx-Medication Refill Encounter Details Date Type Department Care Team (Late st Contact Info) Description 05/16/2024 Refill [facility] [address] [facility] [place] [address] Irish Richard, [address] [place], [place] [id number] Coronary artery disease due to calcified coronary lesion; Dyslipidemia, goal LDL below 130 Allergies Active Allergy Reactions Criticality Noted Date [...] Wegovy 0.5 MG/0.5ML Subcutaneous Solution Auto-injector ([facility]) Inject 0.5 mg under the [...] CHOLESTEROL 90 Tablet 1 05/18/19 25 Active Atorvastatin Calcium 40 MG Oral Tablet (Lipitor)Indica tions:Coronary artery disease due to calcified coronary lesion,Dyslipid emia, goal LDL below 130 TAKE 1 TABLET BY MOUTH IN THE MORNING FOR CHOLESTEROL 90 Tablet 3 05/26/19 24 025 Discontinued Amiodarone HCl 200 MG Oral Tablet (Cordarone) [...] can see ENT. She voiced understanding. Old [place] (myocardial infarction) 02/10/2018 Personal history of pulmonary [...] (01/05/2015): Statin stopped during 01/01/15 hospitalization at [facility] due to elevated LFTs Assessment [...] 04/01/2022 Overview (04/01/2022): Progress Notes by PATRIZIA Chaudhry-03/28/2022 Sign when Signing Visit Hemoglobin A1C Adult [...] mRNA, LNP-s, No Pre serve, 2-Dose Series ([employer]) 02/05/2021 COVID-19, MRNA-LNP, PF, 30 M CG/0.3 mL, 12 YRS AND ABOVE, IM ([facility]if-[facility]) 01/26/2023 Pneumococcal Conjugate Vacc, 13 Valent (Prevnar) 01/16/2016 Pneumococcal Conjugate Vacci ne, 20-valent ([id number]) 10/09/2021 Pneumococcal Polysaccharide PPV23 (Pneumovax) 12/21/2014 Season [...] encounter Miscellaneous Notes * Telephone Encounter - Tarun [facility] - 05/17/2024 12:24 PM EDT Signed Prescriptions: Disp Refills Atorvastatin Calcium 40 MG Oral Tablet (Li*90 Tab*1 Sig: TAKE 1 TABLET BY MOUTH IN THE MORNING FOR CHOLESTEROLAuthorizing Provider: Blanquita PETERS User: TARUN BUTLER * Telephone Encounter - Tarun Butler [facility] - 05/17/2024 12:20 PM EDT Lipid panel ordered to be collected with next routine labs. Refills approved. Thank you, Tarun Butler, PharmD Clinical Pharmacist [facility] 05/17/24 12:23 PM [phone] documented in this encounter Plan of Treatment Upcoming Encounters Date Type Department Care Team (Latest Contact Info) Description 05/24/2024 2:45 PM EDT Imaging Radiology [facility] 1[facility] [address] [place] [address] 05/24/2024 3:30 PM EDT Office Visit Cardiology, [facility] [address] [place] [address] Yulia Almonte, TEA [address] [place] [address] 07/07/2024 10:25 AM EDT Hospital Encounter OR [facility], Operating Room, [facility] - 4th Floor [address] [place] [address] Jong Myers, DO [address] [place] [address] 07/07/2024 10:25 AM EDT - 07/07/2024 11:06 AM EDT Surgery OR [facility], Operating Room, [facility] Floor [address] [place] [address] Jong Myers, DO [address] [place] [address] COLONOSCOPY FLEXIBLE PROXIMAL DIAGNOSTIC Scheduled Orders Name Type Priority Associated Diagnoses Orde r Schedule LIPID PANEL WITH DIRECT LDL IF TG IS HIGH Lab Routine Dyslipidemia, goal LDL below 130 Expected: 05/17/2024 (Approximate), Expires: 05/17/2025 Scheduled Procedures Name Priority Associated Diagnoses Date/Ti [...] failure and stage 3a chronic kidney disease ([facility]) Tachy-jess syndrome ([facility]) Sinoatrial node dysfunction Cardiac pacemaker in situ Personal history of pulmonary embolism Chronic low back pain, unspecified back pain laterality, unspecified whether sciatica present Dysfunction of both eustachian tubes Dysfunction of Eustachian tube Obesity, morbid (more than 100 lbs over ideal weight or BMI > 40) ([facility]) Morbid obesity Chronic bilateral low back pain with bilateral sciatica- Primary Cardiac pacemaker in situ Hypertensive heart and kidney disease with chronic diastolic congestive heart failure and stage 3a chronic kidney disease ([facility]) Paroxysmal A-fib ([facility]) Atrial fibrillation Hypothyroidism, unspecified type Gastroesophageal reflux disease without esophagitis Esophageal reflux Major depressive disorder, recurrent, moderate ([facility]) Major depressive disorder, recurrent episode, moderate Paroxysmal A-fib ([facility])- Primary Atrial fibrillation Major depressive disorder, recurrent, moderate (HCC) Major depressive disorder, recurrent episode, moderate PAF (paroxysmal atrial fibrillation) ([facility]) Atrial fibrillation Essential (primary) hypertension Unspecified essential hypertension Coronary artery disease due to calcified coronary lesion Adult BMI 50.0-59.9 kg/sq m ([facility]) Body Mass Index 50.0-59.9, adult Pulmonary embolism [...] (mild) Chronic kidney disease, Stage II (mild) Coronary artery disease due to calcified coronary lesion Dyslipidemia, goal LDL below 130 Other and unspecified hyperlipidemia Personal history of colonic polyps documented in [...] Agents on File Name Relationship Healthcare Agent [facility] Communication Drew Banerjee Adult Child First Alternate Health Care Agent Care Teams Hydrogenation Still Operator Relationship Specialty Start Date End Date Naveed Peters MD [address] [place] [address] PCP - General Internal Medicine 12/15/23 documented as of this encounter
--- OUTSIDE RECORDS SUMMARY | 2024-06-16 20:30 | External Medical Summary | Summary of Care ---
Author Name Unknown Organization [facility] Address [address] [place] [address] Phone [phone] Care Team Providers Care Fire Information Officer Name Role Phone Naveed Peters MD Primary Care Provider Encounter Details Date Type Department Care Team (Late st Contact Info) Description 04/28/2024 Result Scan Unspecified Department [facility] Frias, [facility] [address] [facility] [address] <No scans attached> Allergies Active Allergy Reactions Criticality Noted Date Comments Celecoxib Hives 12/27/1999 Latex Rash 07/11/2011 Lisinopril Cough 05/29/2014 documented as of this encounter (statuses as of 04/29/2024) Medications Aspirin 81 MG Tablet Take 1 Tablet by mouth in the morning. Active Cholecalciferol (VITAMIN D) 1000 UNIT Capsule Take 1 Cap by mouth daily. 30 Cap 11 5 Active acetaminophen (TYLENOL) 325 MG Tablet Take 2 Tabs by mouth every 6 hours as needed for Pain. 30 Tab 0 6 Active Ferrous Sulfate 325 (65 Fe) MG Oral Tablet (Feosol)Indicati ons:Iron deficiency anemia, unspecified iron deficiency anemia type Take by mouth 1 Tablet in the morning AND 1 Tablet before bedtime. 60 Tablet 11 2 Active Meclizine HCl 25 MG Oral Tablet (Antivert) Take 1 Tablet by mouth 3 times a day as needed. Active Fluticasone Propionate 50 MCG/ACT Nasal Suspension (Flonase) Administer 2 Sprays into each nostril in the morning. 9.9 mL 5 4 Active Atorvastatin Calcium 40 MG Oral Tablet (Lipitor)Indicat ions:Coronary artery disease due to calcified coronary lesion,Dyslipide santa, goal LDL below 130 TAKE 1 TABLET BY MOUTH IN THE MORNING FOR CHOLESTEROL 90 Tablet 3 4 Active Escitalopram Oxalate 20 MG Oral Tablet (Lexapro)Indicat ions:Major depressive disorder, recurrent, moderate (HCC) Take 1 Tablet by mouth in the morning. 90 Tablet 3 4 Active amLODIPine Besylate 5 MG Oral Tablet (Norvasc) Take 1 Tablet by mouth in the morning. 90 Tablet 3 4 Active Vitamin B-12 500 MCG Oral Tablet (vitamin B-12) Take 1 Tablet by mouth in the morning. Active Losartan Potassium 100 MG Oral Tablet (Cozaar)Indicati ons:HTN, goal below 150/90 TAKE 1 TABLET BY MOUTH IN THE MORNING 90 Tablet 4 Active Amiodarone HCl 200 MG Oral Tablet (Cordarone) Take 1 tablet by mouth once daily 90 Tablet 5 Active Gabapentin 100 MG Oral Capsule (Neurontin) TAKE 2 CAPSULES BY MOUTH IN THE MORNING 2 AT NOON AND 3 AT BEDTIME 217 Capsule 5 5 Active Furosemide 20 MG Oral Tablet (Lasix)Indicatio ns:Leg swelling Take 1 Tablet by mouth daily as needed for Other (Edema). Every Thursday, Thursday and 36 Tablet 1 5 Active Levothyroxine Sodium 75 MCG Oral Tablet (Levoxyl) Take 1 Tablet by mouth in the morning. (at least 30 min prior to breakfast or other meds). 90 Tablet 3 5 Active Cetirizine HCl 10 MG Oral Tablet (ZyrTEC) Take 1 Tablet by mouth in the morning. 90 Tablet 1 5 Active methylPREDNISolo ne 4 MG Oral Tablet Therapy Pack (Medrol Dosepack) follow package directions 21 Tablet 5 Active Metoprolol Succinate ER 25 MG Oral Tablet Extended Release 24 Hour (toPROL XL)Indications:P AF (paroxysmal atrial fibrillation) (HCC) TAKE 1 TABLET BY MOUTH IN THE MORNING 90 Tablet 5 Active Apixaban 5 MG Oral Tablet (Eliquis) Take 1 Tablet by mouth in the morning and 1 Tablet before bedtime. 180 Tablet 1 5 Active oxyCODONE HCl 5 MG Oral Tablet (Oxy IR)Indications:C hronic right-sided low back pain with right-sided sciatica Take 1.5 Tablets by mouth 2 times a day as needed for Pain, Severe. 90 Tablet 5 Active Wegovy 0.5 MG/0.5ML Subcutaneous Solution Auto-injector (Semaglutide-[facility]) Inject 0.5 mg under the skin once a week. 6 mL 1 5 Active Omeprazole 20 MG Oral Capsule Delayed Release (PriLOSEC)Indica tions:Gastroesop hageal reflux disease Take 2 capsules by mouth twice daily 360 Capsule 2 5 Active documented as of this encounter (statuses as of 04/29/2024) Active Problems Problem Noted Date Diagnosed Date [...] can see ENT. She voiced understanding. Old [place] (myocardial infarction) 02/10/2018 Personal history of pulmonary [...] (01/05/2015): Statin stopped during 01/01/15 hospitalization at [facility] due to elevated LFTs Assessment [...] as of this encounter (statuses as of 04/29/2024) Resolved Problems Problem Noted Date Diagnosed Date [...] fasting glucose) 06/04/2015 11/17/2017 Overview (06/04/2015): FBG 4/16 = 109 Microscopic hematuria 03/15/20152016 Overview (05/16/2015): [...] as of this encounter (statuses as of 04/29/2024) Immunizations Name Administration Dates Next Due COVID-19 mRNA, LNP-s, No Pre serve, 2-Dose Series ([employer]) 02/05/2021 COVID-19, MRNA-LNP, PF, 30 M CG/0.3 mL, 12 YRS AND ABOVE, IM ([employer]Comirnat) 01/26/2023 Pneumococcal Conjugate Vacc, 13 Valent (Prevnar) 01/16/2016 Pneumococcal Conjugate Vacci ne, 20-valent ([id number]) 10/09/2021 Pneumococcal Polysaccharide PPV23 (Pneumovax) 12/21/2014 Season [...] 12:20 AM EDT Nancy Jose RN * Because of a physical, mental, or emotional condition, do you have difficulty doing errands alone such as visiting a doctor’s office or shopping? (15 years old or older) Answer Date of Assessment Author No 11/21/2015 12:20 AM EDT Nancy Jose RN documented as of this encounter Mental Status * Because of a physical, mental, or emotional condition, do you have serious difficulty concentrating, remembering, or making decisions? (5 years old or older) Answer Entry Date Author No 11/21/2015 12:20 AM EDT Nancy Jose RN documented in this encounter Plan of Treatment Upcoming Encounters Date Type Department Care Team (Latest Contact Info) Description 05/24/2024 2:45 PM EDT Imaging Radiology [address] [place] [phone] 05/24/2024 3:30 PM EDT Office Visit Cardiology, [facility] [address] [place] [address] Yulia Almonte CRNP [address] [place] [address] 07/07/2024 10:25 AM EDT Hospital Encounter OR [facility], Operating Room, [facility] - 4th Floor [address] [place] [phone] Jong Myers, [address] [place] [address] 07/07/2024 10:25 AM EDT - 07/07/2024 11:06 AM EDT Surgery OR [facility], Operating Room, [facility] - 4th Floor [address] [place] [address] Jong Myers, [address] [place] [address] COLONOSCOPY FLEXIBLE PROXIMAL DIAGNOSTIC Scheduled Procedures Name [...] DXA Scan 12/20/2022 12/21/2015 Mammogram 04/23/2023 04/22/2022, 08/2022, 11/08/2020, Additional history exists COVID-19 Vaccine [...] Not on filedocumented as of this encounter Procedures Procedure Name Priority Date/Time Associated Diagnosis Comments CARDIOLOGY SCANNED RESULT 04/28/2024 documented in this encounter Results * CARDIOLOGY SCANNED RESULT (04/28/2024) 04/28/2024 Chloe Frias DO OTHER Final R esult documented in this encounter Advance Directives * [...] First Alternate Health Care Agent Care Teams Fire Information Officer Relationship Specialty Start Date End Date Naveed Peters MD [address] [place] [address] PCP - General Internal Medicine 12/15/23 documented as of this encounter
--- OUTSIDE RECORDS SUMMARY | 2024-06-16 20:30 | External Medical Summary | Summary of Care ---
Author Name Unknown Organization [facility] Address [address] [place] [address] Phone [phone] Care Team Providers Care Pipe Buffer Name Role Phone Naveed Peters MD Primary Care Provider [phone] Reason for Visit * Reason Comments eRx-Medication Refill Encounter Details Date Type Department Care Team (Late st Contact Info) Description 04/23/2024 Refill [facility] [address] [place] [address] Kirsten Richard, [address] [place] [address] Encounter for long-term (current) use of medications*; Gastroesophageal reflux disease Allergies Active Allergy Reactions Criticality Noted Date Comments Celecoxib Hives 12/27/1999 Latex Rash 07/11/2011 Lisinopril Cough 05/29/2014 documented as of this encounter (statuses as of 04/25/2024) Medications Aspirin 81 MG Tablet Take 1 [...] morning. 9.9 mL 5 04/13/19 24 Active Atorvastatin Calcium 40 MG Oral Tablet (Lipitor)Indica tions:Coronary artery disease due to calcified coronary lesion,Dyslipid emia, goal LDL below 130 TAKE 1 TABLET BY MOUTH IN THE MORNING FOR CHOLESTEROL 90 Tablet 3 05/26/19 24 Active Escitalopram Oxalate 20 MG Oral [...] BY MOUTH IN THE MORNING 90 Tablet 02/06/20 24 Active Amiodarone HCl 200 MG Oral Tablet (Cordarone) Take 1 tablet by mouth once daily 90 Tablet 02/17/19 25 Active Gabapentin 100 MG Oral Capsule (Neurontin) [...] bedtime. 180 Tablet 1 04/04/19 25 Active oxyCODONE HCl 5 MG Oral Tablet (Oxy IR)Indications: Chronic right-sided low back pain with right-sided sciatica Take 1.5 Tablets by mouth 2 times a day as needed for Pain, Severe. 90 Tablet 04/05/19 25 Active Wegovy 0.5 MG/0.5ML Subcutaneous Solution Auto-injector (Semaglutide-We ight Management) Inject 0.5 mg under the skin once a week. 6 mL 1 04/08/19 25 Active Omeprazole 20 MG Oral Capsule Delayed Release (PriLOSEC)Indic ations:Gastroes ophageal reflux disease Take 2 capsules by mouth twice daily 360 Capsule 2 04/26/19 25 Active Omeprazole 20 MG Oral Capsule Delayed Release (PriLOSEC)Indic ations:Gastroes ophageal reflux disease Take 2 Capsules by mouth in the morning and 2 Capsules before bedtime. 360 Capsule 3 05/04/19 24 025 Discontinued documented as of this encounter (statuses as of 04/25/2024) Active Problems Problem Noted Date Diagnosed Date [...] can see ENT. She voiced understanding. Old [place] (myocardial infarction) 02/10/2018 Personal history of pulmonary [...] (01/05/2015): Statin stopped during 01/01/15 hospitalization at [facility] due to elevated LFTs Assessment & Plan [...] as of this encounter (statuses as of 04/25/2024) Resolved Problems Problem Noted Date Diagnosed Date [...] as of this encounter (statuses as of 04/25/2024) Immunizations Name Administration Dates Next Due COVID-19 mRNA, LNP-s, No Pre serve, 2-Dose Series ([employer]) 02/05/2021 COVID-19, MRNA-LNP, PF, 30 M CG/0.3 mL, 12 YRS AND ABOVE, IM (P[employer]ER-Comirnaty) 01/26/2023 Pneumococcal Conjugate Vacc, 13 Valent (Prevnar) 01/16/2016 Pneumococcal Conjugate Vacci ne, 20-valent ([id number]) 10/09/2021 Pneumococcal Polysaccharide PPV23 (Pneumovax) 12/21/2014 Season [...] No 12/07/2023 Does the household have a [facility] source of income? (Household - for [...] encounter Miscellaneous Notes * Telephone Encounter - Michele Agustin [facility] - 04/25/2024 9:31 AM EDTSigned Prescriptions: Disp Refills Omeprazole 20 MG Oral Capsule Delayed Rele*360 Ca*2 Sig: Take 2 capsules by mouth twice dailyAuthorizing Provider: KIRSTEN RICHARD User: MICHELE MCDANIELS- documented in this encounter Plan of Treatment Upcoming Encounters Date Type Department Care Team (Latest Contact Info) Description 05/24/2024 2:45 PM EDT Imaging Radiology [address] [place] [address] 05/24/2024 3:30 PM EDT Office Visit Cardiology, [facility] [address] [place] [address] Yulia Almonte, ASSISTANT SURVEYOR [address] [place] [address] 07/07/2024 10:25 AM EDT Hospital Encounter OR [facility], Operating Room, [facility] - 4th Floor [address] [place] [phone] Jong Myers, DO [address] [place] [address] 07/07/2024 10:25 AM EDT - 07/07/2024 11:06 AM EDT Surgery OR [facility], Operating Room, [facility] - 4th Floor [address] [place] [phone] Jong Myers, DO [address] [place] [address] COLONOSCOPY FLEXIBLE PROXIMAL DIAGNOSTIC Scheduled Orders Name Type Priority Associated Diagnoses Orde r Schedule VITAMIN B12 Lab Routine Encounter for long-term (current) use of medications Expected: 04/25/2024 (Approximate), Expires: 04/25/2025 Scheduled Procedures Name Priority Associated Diagnoses Date/Ti [...] over ideal weight or BMI > 40) ([facility]) Morbid obesity Chronic bilateral low back pain with bilateral sciatica- Primary Cardiac pacemaker in situ Hypertensive heart and kidney disease with chronic diastolic congestive heart failure and stage 3a chronic kidney disease ([facility]) Paroxysmal A-fib (HCC) Atrial fibrillation Hypothyroidism, unspecified type Gastroesophageal reflux disease without esophagitis Esophageal reflux Major depressive disorder, recurrent, moderate (HCC) Major depressive disorder, recurrent episode, moderate Paroxysmal A-fib (HCC)- Primary Atrial fibrillation Major depressive disorder, recurrent, moderate (HCC) Major depressive disorder, recurrent episode, moderate PAF (paroxysmal atrial fibrillation) ([facility]) Atrial fibrillation Essential (primary) hypertension Unspecified essential hypertension Coronary artery disease due to calcified coronary lesion Adult BMI 50.0-59.9 kg/sq m ([facility]) Body Mass Index 50.0-59.9, adult Pulmonary embolism [...] in adult, unspecified whether serious comorbidity present ([facility]) Chronic kidney disease (CKD), stage II (mild) Chronic kidney disease, Stage II (mild) Encounter for long-term (current) use of medications- Primary Encounter for long-term (current) use of other medications Gastroesophageal reflux disease Esophageal reflux Personal history of colonic polyps documented in [...] File Name Relationship Healthcare Agent [facility] Communication Drew Banerjee Adult Child First Alternate Health Care Agent Care Teams Pipe Buffer Relationship Specialty Start Date End Date Naveed Peters MD [address] [place] [address] PCP - General Internal Medicine 12/15/23 documented as of this encounter
--- OUTSIDE RECORDS SUMMARY | 2024-06-16 20:30 | External Medical Summary | Summary of Care ---
Author Name Unknown Organization [facility] Address [address] [place] [address] Phone [phone] Care Team Providers Care Igniter Assembler Name Role Phone Naveed Peters MD Primary Care Provider [phone] Reason for Visit * Reason Comments Follow Up Encounter Details Date Type Department Care Team (Late st Contact Info) Description 05/24/2024 3:30 PM EDT Office Visit Cardiology, [facility] [address] [place] [address] Yulia Almonte CRNP [address] [facility] PATRIZIA Aguiar [id number] Tachy-jess syndrome (HCC)*; PAF (paroxysmal atrial fibrillation) (HCC); Encounter for monitoring amiodarone therapy; JALEN on CPAP; Personal history of pulmonary embolism; Coronary artery disease involving [place] coronary artery of [place] heart without angina pectoris Allergies Active Allergy Reactions Criticality Noted Date Comments Celecoxib Hives 12/27/1999 Latex Rash 07/11/2011 Lisinopril Cough 05/29/2014 documented as of this encounter (statuses as of 05/28/2024) Medications Aspirin 81 MG Tablet Take 1 [...] Active Wegovy 0.5 MG/0.5ML Subcutaneous Solution Auto-injector ([facility]) Inject 0.5 mg under the skin [...] once daily 90 Tablet 05/18/19 25 Active methylPREDNISolo ne 4 MG Oral Tablet Therapy Pack (Medrol Dosepack) follow package directions 21 Tablet 03/29/19 25 025 Discontin ued(Patie nt preferenc e/discont inuation) documented as of this encounter (statuses as of 05/28/2024) Active Problems Problem Noted Date Diagnosed Date [...] can see ENT. She voiced understanding. Old MO (myocardial infarction) 02/10/2018 Personal history of pulmonary [...] (01/05/2015): Statin stopped during 01/01/15 hospitalization at [facility] due to elevated LFTs Assessment & [...] as of this encounter (statuses as of 05/28/2024) Resolved Problems Problem Noted Date Diagnosed Date [...] as of this encounter (statuses as of 05/28/2024) Immunizations Name Administration Dates Next Due COVID-19 mRNA, LNP-s, No Pre serve, 2-Dose Series (Solexa) 02/05/2021 COVID-19, MRNA-LNP, PF, 30 M CG/0.3 mL, 12 YRS AND ABOVE, IM ([employer]) 01/26/2023 Pneumococcal Conjugate Vacc, 13 Valent (Prevnar) 01/16/2016 Pneumococcal Conjugate Vacci ne, 20-valent ([id number]) 10/09/2021 Pneumococcal Polysaccharide PPV23 (Pneumovax) 12/21/2014 Season [...] No 12/07/2023 Does the household have a [facility] source of income? (Household - for ages [...] on file documented as of this encounter Last Filed Vital Signs Vital Sign Reading Time Taken Comments Blood Pressure 142/76 05/24/2024 3:06 PM EDT Pulse 72 05/24/2024 3:06 PM EDT Temperature - - Respiratory Rate 16 05/24/2024 3:06 PM EDT Oxygen Saturation - - Inhaled Oxygen Concentration - - Weight 136.5 kg (300 lb 14.4 oz) 05/24/2024 3:06 PM EDT Height - - Body Mass Index 53.3 12/07/2023 2:28 PM EDT documented in this encounter Functional Status * Are you [...] Nancy Euceda RN documented in this encounter Progress Notes * Chloe Frias DO - 05/24/2024 7:56 PM EDT I have reviewed the advanced practitioner's documentation on the date of service referenced in note, and I agree with, and take responsibility for the plan of care. Pt seen in remote EP f/u due to TBS s/p ppm and pAF on amio and Pt has been doing well No recurrent documented AF on most recent device check; 98% AP Continue with routine device checks Continue current cardiac medications EP f/u 1 year Chloe Frias DO Department of Cardiology [facility] [place] [address] * Yulia Almonte CRNP - 05/24/2024 2:15 PM EDT Subjective Barbara Banerjee is a 73 year old female. Chief Complaint Patient presents with Follow Up EP Follow Up Cardiac Problems TBS s/p ppm 07/02/2018 stress induced cardiomyopathy-the echo showed a "reversed" Takotsubo 10/22/2017 PE on coumadin pAF 12/2014 in setting of acute PE, with recurrence 02/28/2015 a week after stopping metoprolol and in setting of low potassium; recurrent episode 10/2015 started on Tikosyn stopped 01/2020 dueto prolonged QTc; started on amiodarone 01/2019; [id number] 3 (female, age, HTN) Sinus Bradycardia HLD Mild non-obstructive CAD by cardiac cath in [place] in 2006 HTN JALEN on CPAP HPI: 73 year old female presents for EP follow up. Last seen in the clinic 11/2021. Feeling well since their last visit with no acute concerns today. Denies chest pain, SOB, palpitations, dizziness, syncope, edema, orthopnea and PND. No change in activity tolerance. Reports compliance with medications without any untoward side effects, or difficulty with affordability. PMH: Patient Active Problem List Diagnosis Gastroesophageal reflux disease without esophagitis Coronary artery disease due to calcified coronary lesion Paroxysmal A-fib (HCC) Dyslipidemia, goal LDL below 130 Vitamin B12 deficiency Lumbosacral radiculopathy JALEN on CPAP Umbilical hernia Hernia, hiatal Major depressive disorder, recurrent, moderate (HCC) Benign paroxysmal positional vertigo of right ear Stress-induced cardiomyopathy Personal history of pulmonary embolism Old MO (myocardial infarction) Hypothyroidism Cardiac pacemaker in situ Chronic low back pain Dysfunction of both eustachian tubes Essential (primary) hypertension Class 3 obesity with alveolar hypoventilation and body mass index (BMI) of 50.0 to 59.9 in adult (HCC) Chronic kidney disease (CKD), stage II (mild) Wrist impingement syndrome, unspecified laterality Middle ear effusion, left Hypertensive kidney disease 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 Cholecalciferol (VITAMIN D) 1000 UNIT Capsule Take 1 Cap by mouth daily. 30 Cap 11 acetaminophen (TYLENOL) 325 MG Tablet Take 2 Tabs by mouth every 6 hours as needed for Pain. 30 Tab0 Ferrous Sulfate 325 (65 Fe) MG Oral Tablet (Feosol) Take by mouth 1 Tablet in the morning AND 1 Tablet before bedtime. 60 Tablet 11 Meclizine HCl 25 MG Oral Tablet (Antivert) Take 1 Tablet by mouth 3 times a day as needed. Fluticasone Propionate 50 MCG/ACT Nasal Suspension (Flonase) Administer 2 Sprays into each nostril in the morning. 9.9 mL 5 Escitalopram Oxalate 20 MG Oral Tablet (Lexapro) Take 1 Tablet by mouth in the morning. 90 Tablet 3 amLODIPine Besylate 5 MG Oral Tablet (Norvasc) Take 1 Tablet by mouth in the morning. 90 Tablet 3 Vitamin B-12 500 MCG Oral Tablet (vitamin B-12) Take 1 Tablet by mouth in the morning. Gabapentin 100 MG Oral Capsule (Neurontin) TAKE 2 CAPSULES BY MOUTH IN THE MORNING 2 AT NOON AND 3 AT BEDTIME 217 Capsule 5 Furosemide 20 MG Oral Tablet (Lasix) Take 1 Tablet by mouth daily as needed for Other (Edema). Every Thursday, Thursday and 36 Tablet 1 Levothyroxine Sodium 75 MCG Oral Tablet (Levoxyl) Take 1 Tablet by mouth in the morning. (at least 30 min prior to breakfast or other meds). 90 Tablet 3 Cetirizine HCl 10 MG Oral Tablet (ZyrTEC) Take 1 Tablet by mouth in the morning. 90 Tablet 1 Metoprolol Succinate ER 25 MG Oral Tablet Extended Release 24 Hour (toPROL XL) TAKE 1 TABLET BY MOUTH IN THE MORNING 90 Tablet 0 Apixaban 5 MG Oral Tablet (Eliquis) Take 1 Tablet by mouth in the morning and 1 Tablet before bedtime. 180 Tablet 1 Wegovy 0.5 MG/0.5ML Subcutaneous Solution Auto-injector (Semaglutide-Weight Management) Inject 0.5 mg under the skin once a week. 6 mL 1 Omeprazole 20 MG Oral Capsule Delayed Release (PriLOSEC) Take 2 capsules by mouth twice daily 360 Capsule 2 Losartan Potassium 100 MG Oral Tablet (Cozaar) TAKE 1 TABLET BY MOUTH IN THE MORNING 90 Tablet 3 oxyCODONE HCl 5 MG Oral Tablet (Oxy IR) Take 1.5 Tablets by mouth 2 times a day as needed for Pain,Severe. 90 Tablet 0 Atorvastatin Calcium 40 MG Oral Tablet (Lipitor) TAKE 1 TABLET BY MOUTH IN THE MORNING FOR CHOLESTEROL 90 Tablet 1 Amiodarone HCl 200 MG Oral Tablet (Cordarone) Take 1 tablet by mouth once daily 90 Tablet 0 No current facility-administered medications for this visit. Past Medical History: Diagnosis Date Benign neoplasm of colon 07/2011 hyperplastic polyp repeat in 10 yrs Carpal tunnel syndrome Diaphragmatic hernia without mention of obstruction or gangrene Hiatal Hernia Headache(784.0) Headache NOS Hypertension Microscopic hematuria 03/15/2015 Cysto 05/16/15 normal Morbid obesity with body mass index (BMI) of 45.0 to 49.9 in adult ([facility]) 06/18/2018 Progress Notes by PATRIZIA Chaudhry-03/28/2022 Sign when Signing Visit Hemoglobin A1C AdultBMI 50.0-59.9 kg/sq m ([facility]) - Hemoglobin A1C NO LONGER CURRENT Paroxysmal atrial fibrillation ([facility]) Pulmonary embolism on right ([facility]) 12/26/2014 CT for PE 11/23/14: Nonocclusive pulmonary embolus within a segmental branch of the right lower lobe. No central pulmonary embolus. 12/31: factor V, prothrombin protein C&S, antithrombin III, homocysteine, cardiolipin negative Past Surgical History: Procedure Laterality Date ANESTHESIA, HEART CATHETERIZATION 2006 pt has had this procedure 3 times. unsure of all dates. BIOPSY OF BREAST, OPEN 1991 left breast CARDIAC CATHETERIZATION REPORT 01/08/2015 Non-obstructive coronary artery disease, minor luminal irregularities, normal LVEDP CARPAL TUNNEL SURGERY 1989 right hand CARPAL TUNNEL SURGERY 2006 left hand COLONOSCOPY, DIAGNOSTIC (RECTUM) 07/18/2011 hyperplastic polyp repeat in 10 yrs CORONARY ANGIOGRAPHY W/LEFT HEART CATH Right 01/08/2015 CORONARY ANGIOGRAPHY W/LEFT HEART CATH performed by Ronaldo Giraldo MD at [facility] ECHO (2-D COMPLETE) 12/25/2014 EF 64%, RV dilated/hypokinetic ECHO (2-D COMPLETE) 01/07/2015 EF 50%, moderate wall motion ab (septal/inferior wall) EGD, FLEXIBLE, DIAGNOSTIC 05/27/2021 mild-mod inflammation / [facility] EGD, FLEXIBLE, DIAGNOSTIC 09/05/2021 sm hiatal hernia / [facility] EMG 2 EXTREMITY 02/07/2015 L5-S1 radiculopathy INFORMATION 11/27, 09/28 x 2; L4-5 in 2013 KNEE ARTHROSCOPY/MENISCUS REPAIR 1989 left knee KNEE ARTHROSCOPY/SURGERY 1988 right knee/torn cartilage MRI L SPINE W WO CONTRAST 02/24/2015 L5-S1 interbody spacer projecting into the right subarticular recess REMOVE GALLBLADDER 2008 TOTAL ABD HYSTERECTOMY W/WO REMOVAL OF TUBE(S) 1991 Review of patient's allergies indicates: Allergen Reactions Celecoxib Hives Latex Rash Lisinopril Cough Family History Problem Relation Name Age of Onset Heart attack Father 62 fatal [place] Heart disease Father Arthritis Sister Tianna Cancer Sister Tianna melanoma Hypertension Sister Tianna Diabetes Sister Marianne Hypertension Sister Marianne Breast Cancer Sister Marianne 48 Heart Disorder Sister Kristine heart murmur, valvular heart disease Depression Sister Kristine No Past Hx Sister Tammie well Arthritis Brother Vinicio gout Hypertension Brother Vinicio Diabetes Brother Vinicio Renal Hx Brother Vinicio COPD Brother Alcon 63 + smoker Heart attack Brother Alcon 68 Asthma Brother Alcon Diabetes Son 40 Stroke Mother 65 Breast Cancer Mother 62 Family Status Relation Status Fa at age 62 heart attack Sis at age 79 melanoma, arthritis, HTN, ? 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 Tobacco Use Smoking status: Never Passive exposure: Never Smokeless tobacco: Never Vaping Use Vaping status: Never Used Substance and Sexual Activity Alcohol use: No Drug use: No Sexual activity: Not Currently Other Topics Concern Not on file Social History Narrative One cat No mold Moved in with her sister on May 17, 2015 and she smokes alot 08/11/2016 Diet: wants to cut portions Exercise: housework, wants to start working Caffeine: 1 cup coffee/day Social Needs Financial Resource Strain: Low Risk (12/07/2023) Financial Resource Strain Do you have any trouble paying for your medications, or do you think you might in the future? (Adult - for ages 18 years and over): No Does your family have trouble paying for medicine? (Household - for ages 0-17 years): Not on file Food Insecurity: No Food Insecurity (12/07/2023) Food Insecurity Worried About Running Out of Food in the Last Year: Never true Ran Out of Food in the Last Year: Never true Do you need food for this week? (Adult - for ages 18 years and over): No Transportation Needs: No Transportation Needs (12/07/2023) Transportation Needs Do you have trouble getting a ride to medical visits or work? (Adult - for ages 18 years and over):Not on file Does your family have a hard time getting a ride to doctors’ visits? (Household - for ages 0-17 years): Not on file Has lack of transportation kept you from medical appointments, meetings, work, or from getting things needed for daily living? Check all that apply. (Adult - for ages 18 years and over): No Do you (or your family) have trouble finding or paying for a ride (transportation)? (Household - for ages 0-17 years): Not on file Social Connections: Socially Integrated (12/07/2023) Social Connections How often do you feel lonely or isolated from those around you? (Adult - for ages 18 years and over): Never Housing Stability: Low Risk (12/07/2023) Housing Stability Do you currently live in a custodial or have no steady place to sleep at night? (Adult - for ages 18 years and over): No Do you think you are at risk of becoming homeless? (Adult - for ages 18 years and over): Not on file Does your family worry about paying for your home or becoming homeless? (Household - for ages 0-17 years): Not on file Are you homeless or worried that you might be in the future? (Adult - for ages 18 years and over): No Are you (or your family) homeless or worried that you might be in the future? (Household - for ages0-17 years): Not on file Review of Systems Constitutional: Negative for activity change, fatigue and unexpected weight change. Eyes: Negative for visual disturbance. Respiratory: Negative for shortness of breath and wheezing. Cardiovascular: Negative for chest pain, palpitations and leg swelling. Gastrointestinal: Negative for blood in stool, constipation, diarrhea, nausea and vomiting. Genitourinary: Negative for hematuria. Musculoskeletal: Positive for gait problem. Negative for arthralgias. Skin: Negative for wound. Neurological: Negative for dizziness and syncope. Objective BP 142/76 (BP Site: Left Arm, BP Position: Sitting) | Pulse 72 | Resp 16 | Wt (!) 136.5 kg (300 lb 14.4 oz) | BMI 53.30 kg/m² | BSA 2.46 m² Physical Exam Vitals and nursing note reviewed. Constitutional: General: She is awake. Appearance: Normal appearance. She is well-developed. HENT: Head: Normocephalic and atraumatic. Eyes: General: No scleral icterus. Extraocular Movements: Extraocular movements intact. Neck: Vascular: Normal carotid pulses. No carotid bruit or JVD. Cardiovascular: Rate and Rhythm: Normal rate and regular rhythm. Pulses: Carotid pulses are 2+ on the right side and 2+ on the left side. Radial pulses are 2+ on the right side and 2+ on the left side. Posterior tibial pulses are 2+ on the right side and 2+ on the left side. Heart sounds: S1 normal and S2 normal. No murmur heard. Pulmonary: Effort: Pulmonary effort is normal. Breath sounds: Normal breath sounds. No decreased breath sounds, wheezing, rhonchi or rales. Abdominal: General: Abdomen is protuberant. Palpations: Abdomen is soft. Musculoskeletal: Cervical back: Neck supple. Right lower leg: No edema. Left lower leg: No edema. Skin: General: Skin is warm and dry. Neurological: General: No focal deficit present. Mental Status: She is alert and oriented to person, place, and time. Psychiatric: Attention and Perception: Attention normal. Mood and Affect: Mood normal. Speech: Speech normal. Behavior: Behavior normal. Behavior is cooperative. Thought Content: Thought content normal. Cognition and Memory: Cognition normal. Judgment: Judgment normal. 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% Zio Patch Results: 01/2018 Predominant rhythm sinus with tendency towards bradycardia 54bpm Slowest HR 38bpm at 1am c/w SB Fastest HR 176bpm at 5:17pm c/w PAT 239 short episodes of PAT average HR 110bpm (61-176bpm); longest 20 seconds Pt symptoms when in SVT, APC, VPC ECGS: Today AP 66 bpm 10/29/2021: AP 62bpm 11/07/2019: AP 73bpm Nonspecific ST & T wave abnormality 04/08/2019: AP 88bpm VS QTc 495ms 02/07/2019: AP 68bpm QTc 425ms 02/04/2019 AP-VS 90bpm Nonspecific ST & T wave abnormalities QTc 508ms 06/24/2018: SR 66bpm Nonspecific ST & T wave abnormalities QTc 469ms 02/02/2018: SB 51bpm QTc 436ms 07/14/2017: SB 58bpm Non-specific ST & T wave abnormalities QTc 447ms 10/10/2016: SR QTc 458ms 06/19/2016: SR 58bpm QTc 486ms Echocardiograms: 10/2021 @ [facility]: EF 60-65% Mild TR Mild LVH 11/08/2020: The left ventricular cavity size is normal. The LV wall thickness is mildly increased (concentric). The left ventricular wall motion is normal. The qualitative LV ejection fraction is 55-59% (normal). There is no significant valvular disease Trivial tricuspid regurgitation is present. The signal is inadequate to calculate pulmonary artery systolic pressure. 08/24/2018 from [facility]: EF 50-60% LVH Grade I diastolic dysfunction No significant valvular pathology Limited 02/23/2018: The qualitative LV ejection fraction is 60-64% (normal). The left ventricular wall motion is normal. 10/26/2017: EF 55-60% Base anterior septum mild hypokinesis 10/22/2017 @ [facility]: EF 30-35% Mild LVH Large septal stef-septal, stef-inferior hypokinesis to akinesis of the basal segments sparing of the apical segments 07/20/2017: There was normal sinus rhythm during the examination. The LV wall thickness is mildly increased (concentric). The left ventricular wall motion is normal. The qualitative LV ejection fraction is 5-559% (normal). The left atrium is normal sized (< 35 ml/m^2). Trivial tricuspid regurgitation is present. The signal is inadequate to calculate pulmonary artery systolic pressure. Compared to the prior studies performed on 12/25/2014 and 01/07/2015, the previously noted inferiorand septal wall motion abnormalities have resolved. The right ventricular chamber size and systolic function has normalized 12/2014: There is a moderate sized septal and inferior wall motion abnormality with hypokinesis of the segments. The left ventricular systolic function is normal. The right ventricular systolic function is qualitatively normal. Cardiac Catheterizations: In [facility] 10/22/2017: Normal coronary arteries in [facility] 12/2014: Mild LI Carotid Duplex 12/2016: Impression: Right carotid artery duplex examination indicates evidence of <50% stenosis of the internal carotid artery. Left carotid artery duplex examination indicates evidence of <50% stenosis of the internal carotid artery. Laboratory Data Review: Latest Reference Range & Units 12/07/23 15:14 03/29/24 08:43 SODIUM 135 - 146 mmol/L 146 144 POTASSIUM 3.5 - 5.1 mmol/L 3.6 4.1 CHLORIDE 98 - 107 mmol/L 108 (H) 105 CO2 22 - 32 mmol/L 26 30 BUN 6 - 20 mg/dL 13 12 CREATININE 0.5 - 1.0 mg/dL 0.8 1.1 (H) EGFR >=60 mL/min 81 53 (L) ANION GAP 7 - 15 mmol/L 12 9 GLUCOSE 70 - 120 mg/dL 93 120 CALCIUM 8.4 - 10.2 mg/dL 8.5 8.9 Protein 6.0 - 8.3 g/dL 6.7 TSH 0.27 - 4.20 uIU/mL 4.48 (H) TSH WITH FREE T4 IF INDICATED Rpt ! T4, Free 0.9 - 1.7 ng/dL 1.4 CBC Rpt WBC 4.00 - 10.80 K/uL 5.76 RBC 3.85 - 5.15 M/uL 4.38 HGB 12.0 - 15.3 g/dL 13.6 HCT 36.0 - 45.2 % 42.7 MCV 81.5 - 97.5 fL 97.5 MCH 27.0 - 34.0 pg 31.1 MCHC 32.0 - 36.0 g/dL 31.9 RDW 11.5 - 15.5 % 13.3 PLT 140 - 400 K/uL 201 MPV 6.6 - 11.1 fL 9.4 CBC WITH WBC DIFFERENTIAL Rpt Absolute Neutrophils 1.80 - 7.70 K/uL 3.41 Absolute Lymphocytes 1.00 - 4.80 K/ul 1.85 Absolute Monocytes 0.00 - 1.10 K/uL 0.42 Absolute Eosinophils 0.00 - 0.70 K/uL 0.07 Absolute Basophils 0.00 - 0.20 K/uL 0.01 Albumin 3.8 - 5.0 g/dL 4.4 AST 10 - 35 U/L 19 ALT 10 - 35 U/L 23 Alkaline Phosphatase 35 - 130 U/L 111 Bilirubin, Total <=1.2 mg/dL 0.4 Latest Reference Range & Units 04/07/23 09:23 Triglycerides <=174 mg/dL 105 Cholesterol <200 mg/dL 133 Non-HDL Cholesterol <=159 mg/dL 78 HDL Cholesterol >49 mg/dL 55 LDL Cholesterol <=129 mg/dL 57 Latest Reference Range & Units 12/07/23 15:14 Albumin 3.8 - 5.0 g/dL 4.4 AST 10 - 35 U/L 19 ALT 10 - 35 U/L 23 Alkaline Phosphatase 35 - 130 U/L 111 Bilirubin, Total <=1.2 mg/dL 0.4 Impression TBS s/p dual chamber ppm 07/02/2018 Stress induced cardiomyopathy-the echo showed a "reversed" Takotsubo 10/22/2017 after a tooth extraction; repeat echo 02/2018 EF normal pAF 12/2014 in setting of acute PE, with recurrence 02/28/2015 a week after stopping metoprolol and in setting of low potassium; recurrent episode 10/2015 started on Tikosyn-stopped 01/2020 due to prolonged QTc; started on amiodarone 01/2019; [id number] 3 (female, age, HTN) PE on coumadin HTN HLD Mild non-obstructive CAD by cardiac cath [facility] 12/2014 Chronic diastolic HF, NYHA Class II Right LE swelling-sounds to be venous insufficieny related-duplex in 04/2017 negative Depression Obesity JALEN on CPAP GERD Dizziness resolved with Eply maneuvers Migraines Anxiety Plan: -HR and BP well controlled -device checks reveal stable pacing thresholds with adequate pacing burden. -continue to follow with device clinic - Patient remains on amiodarone for antiarrhythmic management -Continued monitoring in regard to avoiding toxicity or signs of toxicity including the following: - liver function remains stable - TSH levels remain within normal limits - QTC interval remains within normal limits -continue amiodarone, atorvastatin, losartan, apixaban, metoprolol, amlodipine, furosemide -Educated patient on caution with change in positions to minimize symptomatic orthostatic hypotension -Discussed importance of diet & exercise with the patient. -Discussed with patient subtle changes in how they are feeling or completing daily activities to contact us sooner; don't wait days or weeks. Patient care discussed and coordinated with Dr. Frias. Please refer to Dr. Frias's notes for further recommendations. DISPOSITION: Follow up 1 year or if symptoms worsen/fail to improve. All questions were answered to the patients satisfaction. Patient advised to report to ED with any and all emergencies. The patient agrees to the above plan and will call with additional questions or concerns. [facility] [id number] This chart was completed in part utilizing [employer] Speech Voice Recognition Software. Grammatical errors, random word insertions, pronoun errors, and incomplete sentences are an occasional consequence of this system due to software limitations, ambient noise, and hardware issues. Any formal questions or concerns about the content, text, or information contained within the body of this dictation should be directly addressed to the provider for clarification. Cosigned by Chloe Frias DO at 05/27/2024 11:30 PM EDT documented in this encounter Procedure Notes * Kayden Richard DO - 05/24/2024 3:14 PM EDTAssociated Order(s): EKG REASON FOR STUDY: amio;amio CONCLUSIONS: Atrial-paced rhythm Nonspecific ST and T wave abnormality Abnormal ECG When compared with ECG of 07-Nov-2019 11:25, No significant change was found Ventricular Rate: 66 Atrial Rate: 66 OK Interval: 192 QRS Duration: 90 QT/QTc: 442/463 ms P-R-T Albright: -27 : 45 : 18 degrees documented in this encounter Nursing Notes * Nerissa Mckeon CMA - 05/24/2024 3:05 PM EDT Examination Room: 17 Name: Barbara Banerjee Date of : (1950). Reason for Visit: follow up Interim Hospitalization(s): [facility] "later part of last year" - "my heart was racing but they said everything was fine" Problems/Concerns: denies Chest Pain/SOB: denies [facility] Discussed: Yes [facility] is a way you can talk to your provider online through e-mail. Would you like to sign up? I can activate it for you? ALREADY ACTIVE Patient was instructed to not get up on the exam table until directed and assisted by their provider; patient is to remain seated in the chair/ wheelchair/ exam table for fall prevention and safety reasons. Patient is aware to have assistance to step down off exam table with personnel. Patient voiced full comprehension of instructions. documented in this encounter Plan of Treatment Upcoming Encounters Date Type Department Care Team (Latest Contact Info) Description 07/07/2024 10:15 AM EDT Hospital Encounter OR [facility], Operating Room, [facility] - 4th Floor [address] [phone] Jong Myers DO [address] [facility] [place] [address] 07/07/2024 10:15 AM EDT - 07/07/2024 10:56 AM EDT Surgery OR [facility], Operating Room, [facility] - 4th Floor [address] [phone] Jong Myers, DO [address] [place] [address] COLONOSCOPY FLEXIBLE PROXIMAL DIAGNOSTIC Scheduled Procedures Name [...] Procedure Name Priority Date/Time Associated Diagnosis Comments HC ECG TRACING ONLY Routine 05/24/2024 3 :14 PM EDT Tachy-jess syndrome (HCC) PAF (paroxysmal atrial fibrillation) (HCC) Encounter for monitoring amiodarone therapy JALEN on CPAP Personal history of pulmonary embolism Coronary artery disease involving [place] coronary artery of [place] heart without angina pectoris documented in this encounter Results * EKG (05/24/2024 3:14 PM EDT) 05/24/2024 3:14 PM EDT Narrative Procedure Note Kayden Richard DO - 05/24/2024 3:14 PM EDT REASON FOR STUDY: amio;amio CONCLUSIONS: Atrial-paced rhythm Nonspecific ST and T wave abnormality Abnormal ECG When compared with ECG of 07-Nov-2019 11:25, No significant change was found Ventricular Rate: 66 Atrial Rate: 66 OK Interval: 192 QRS Duration: 90 QT/QTc: 442/463 ms P-R-T Albright: -27 : 45 : 18 degrees Yulia Almonte FUNDS TRANSFER CLERK EKG F inal Result [facility] documented in this encounter Visit Diagnoses Diagnosis Advanced care [...] ideal weight or BMI > 40) ([facility]) Morbid obesity Chronic bilateral low back pain with bilateral sciatica- Primary Cardiac pacemaker in situ Hypertensive heart and kidney disease with chronic diastolic congestive heart failure and stage 3a chronic kidney disease ([facility]) Paroxysmal A-fib ([facility]) Atrial fibrillation Hypothyroidism, unspecified type Gastroesophageal reflux disease without esophagitis Esophageal reflux Major depressive disorder, recurrent, moderate ([facility]) Major depressive disorder, recurrent episode, moderate Paroxysmal A-fib ([facility])- Primary Atrial fibrillation Major depressive disorder, recurrent, moderate (HCC) Major depressive disorder, recurrent episode, moderate PAF (paroxysmal atrial fibrillation) ([facility]) Atrial fibrillation Essential (primary) hypertension Unspecified essential hypertension Coronary artery disease due to calcified coronary lesion Adult BMI 50.0-59.9 kg/sq m ([facility]) Body Mass Index 50.0-59.9, adult Pulmonary embolism on right ([facility]) Other pulmonary embolism and infarction JALEN on [...] in adult, unspecified whether serious comorbidity present ([facility]) Chronic kidney disease (CKD), stage II (mild) Chronic kidney disease, Stage II (mild) Tachy-jess syndrome ([facility])- Primary Sinoatrial node dysfunction PAF (paroxysmal atrial fibrillation) ([facility]) Atrial fibrillation Encounter for monitoring amiodarone therapy Encounter for therapeutic drug monitoring JALEN on CPAP Obstructive sleep apnea (adult) (pediatric) Personal history of pulmonary embolism Coronary artery disease involving [place] coronary artery of [place] heart without angina pectoris Personal history of colonic polyps documented in [...] Agents on File Name Relationship Healthcare Agent [facility] Drew Banerjee Adult Child First Alternate Health Care Agent Care Teams Igniter Assembler Relationship Specialty Start Date End Date Naveed Peters MD [address] [place] [address] PCP - General Internal Medicine 12/15/23 documented as of this encounter
--- OUTSIDE RECORDS SUMMARY | 2024-06-16 20:30 | External Medical Summary | Summary of Care ---
Author Name Unknown Organization [facility] Address [address] [place] [facility] [place] [address] Phone [phone] Care Team Providers Care Real Estate Account Executive Name Role Phone Naveed Peters MD Primary Care Provider [phone] Reason for Visit * Reason Comments eRx-Medication Refill Encounter Details Date Type Department Care Team (Late st Contact Info) Description 05/02/2024 Refill [facility] [address] [phone] Naveed Peters MD [address] [facility] [place] [address] HTN, goal below 150/90 Allergies Active Allergy Reactions Criticality Noted Date Comments Celecoxib Hives 12/27/1999 Latex Rash 07/11/2011 Lisinopril Cough 05/29/2014 documented as of this encounter (statuses as of 05/03/2024) Medications Aspirin 81 MG Tablet Take 1 [...] the morning. 90 Tablet 06/10/19 24 Active amLODIPine Besylate 5 MG Oral Tablet (Norvasc) Take 1 Tablet by mouth in the morning. 90 Tablet 06/10/19 24 Active Vitamin B-12 500 MCG Oral Tablet (vitamin B-12) Take 1 Tablet by mouth in the morning. Active Amiodarone HCl 200 MG Oral Tablet [...] (Edema). Every Thursday, Thursday and 36 Tablet 03/02/19 25 Active Levothyroxine Sodium 75 MCG Oral Tablet (Levoxyl) Take 1 Tablet by mouth in the morning. (at least 30 min prior to breakfast or other meds). 90 Tablet 3 03/10/19 25 Active Cetirizine HCl 10 MG Oral Tablet (ZyrTEC) Take 1 Tablet by mouth in the morning. 90 Tablet 03/10/19 25 Active methylPREDNISol one 4 MG [...] MORNING 90 Tablet 3 05/04/19 25 Active Losartan Potassium 100 MG Oral Tablet (Cozaar)Indicat ions:HTN, goal below 150/90 TAKE 1 TABLET BY MOUTH IN THE MORNING 90 Tablet 02/06/20 24 025 Discontinued documented as of this encounter (statuses as of 05/03/2024) Active Problems Problem Noted Date Diagnosed Date [...] can see ENT. She voiced understanding. Old [place] (myocardial infarction) 02/10/2018 Personal history of pulmonary [...] (01/05/2015): Statin stopped during 01/01/15 hospitalization at [facility] due to elevated LFTs Assessment & [...] as of this encounter (statuses as of 05/03/2024) Resolved Problems Problem Noted Date Diagnosed Date [...] 06/18/2018 04/01/2022 Overview (04/01/2022): Progress Notes by PATRIZAI Chaudhry-C2/11/2022 Sign when Signing Visit Hemoglobin A1C [...] as of this encounter (statuses as of 05/03/2024) Immunizations Name Administration Dates Next Due COVID-19 mRNA, LNP-s, No Pre serve, 2-Dose Series (Three Rings) 02/05/2021 COVID-19, MRNA-LNP, PF, 30 M CG/0.3 mL, 12 YRS AND ABOVE, IM (PFIZER-Comirnaty) 01/26/2023 Pneumococcal Conjugate Vacc, 13 Valent (Prevnar) 01/16/2016 Pneumococcal Conjugate Vacci ne, 20-valent ([id number]) 10/09/2021 Pneumococcal Polysaccharide PPV23 (Pneumovax) 12/21/2014 Season [...] No 12/07/2023 Does the household have a [facility] source [facility] income? (Household - for [...] encounter Miscellaneous Notes * Telephone Encounter - Eduardo Roman RPh - 05/03/2024 10:14 AM EDTSigned Prescriptions: Disp Refills Losartan Potassium 100 MG Oral Tablet (Coz*90 Tab*3 Sig: TAKE 1 TABLET BY MOUTH IN THE MORNINGAuthorizing Provider: Blanquita PETERS User: EDUARDO ROMAN------ documented in this encounter Plan of Treatment Upcoming Encounters Date Type Department Care Team (Latest Contact Info) Description 05/24/2024 2:45 PM EDT Imaging Radiology [address] [place] [phone] 05/24/2024 3:30 PM EDT Office Visit Cardiology, [facility] [address] [place] [address] Yulia Almonte CRNP [address] [place] [address] 07/07/2024 10:25 AM EDT Hospital Encounter OR [facility], Operating Room, [facility] - 4th Floor [address] [place] [phone] Jong Myers, DO [address] [place] [address] 07/07/2024 10:25 AM EDT - 07/07/2024 11:06 AM EDT Surgery OR [facility], Operating Room, [facility] - 4th Floor [address] [place] [phone] Jong Myers, DO [address] [place] [address] COLONOSCOPY FLEXIBLE PROXIMAL DIAGNOSTIC Scheduled Procedures Name [...] unspecified whether serious comorbidity present ([facility]) Chronic kidney disease (CKD), stage II (mild) Chronic kidney disease, Stage II (mild) HTN, goal below 150/90 Personal history of colonic polyps documented in [...] First Alternate Health Care Agent Care Teams Real Estate Account Executive Relationship Specialty Start Date End Date Naveed Peters MD [address] [place] [address] PCP - General Internal Medicine 12/15/23 documented as of this encounter
--- OUTSIDE RECORDS SUMMARY | 2024-06-16 20:30 | External Medical Summary | Summary of Care ---
Author Name Unknown Organization [facility] Address [address] [facility] [place] [address] Phone [phone] Care Team Providers Care Chef Under Name Role Phone Naveed Peters MD Primary Care Provider [phone] Reason for Visit * Reason Onset Date Comments Medication Refill 05/02/2024 Encounter Details Date Type Department Care Team (Late st Contact Info) Description 05/02/2024 Refill [facility] [address] [facility] [place] [address] Naveed Peters MD [address] [facility] [place] [address] Chronic right-sided low back pain with right-sided sciatica Allergies Active Allergy Reactions Criticality Noted Date Comments Celecoxib Hives 12/27/1999 Latex Rash 07/11/2011 Lisinopril Cough 05/29/2014 documented as of this encounter (statuses as of 05/04/2024) Medications Aspirin 81 MG Tablet Take 1 [...] AND 1 Tablet before bedtime. 60 Tablet 10/10/19 22 Active Meclizine HCl 25 MG [...] morning. 90 Tablet 1 03/10/19 25 Active methylPREDNISolo ne 4 MG Oral [...] Active Wegovy 0.5 MG/0.5ML Subcutaneous Solution Auto-injector (Semaglutide-[facility]) Inject 0.5 mg under the skin [...] Pain, Severe. 90 Tablet 05/04/19 25 Active oxyCODONE HCl 5 MG Oral Tablet (Oxy IR)Indications:C hronic right-sided low back pain with right-sided sciatica Take 1.5 Tablets by mouth 2 times a day as needed for Pain, Severe. 90 Tablet 04/05/19 25 025 Discontin ued(Refil l) documented as of this encounter (statuses as of 05/04/2024) Active Problems Problem Noted Date Diagnosed Date [...] can see ENT. She voiced understanding. Old [place] (myocardial infarction) 02/10/2018 Personal history of pulmonary [...] (01/05/2015): Statin stopped during 01/01/15 hospitalization at [facility] due to elevated LFTs Assessment [...] as of this encounter (statuses as of 05/04/2024) Resolved Problems Problem Noted Date Diagnosed Date [...] as of this encounter (statuses as of 05/04/2024) Immunizations Name Administration Dates Next Due COVID-19 mRNA, LNP-s, No Pre serve, 2-Dose Series (Rayneer) 02/05/2021 COVID-19, MRNA-LNP, PF, 30 M CG/0.3 mL, 12 YRS AND ABOVE, IM (PFIZER-Comirunc [facility]) 01/26/2023 Pneumococcal Conjugate Vacc, 13 Valent (Prevnar) 01/16/2016 Pneumococcal Conjugate Vacci ne, 20-valent ([id number]) 10/09/2021 Pneumococcal Polysaccharide PPV23 (Pneumovax) 12/21/2014 Season [...] Telephone Encounter - Naveed Peters MD - 05/03/2024 3:55 PM EDTSigned Prescriptions: Disp Refills oxyCODONE HCl 5 MG Oral Tablet (Oxy IR) 90 Tab*0 Sig: Take 1.5 Tablets by mouth 2 times a day as needed for Pain, Severe. Authorizing Provider: NAVEED PETERS * Telephone Encounter - Evelyn Adams [facility] - 05/03/2024 3:31 PM EDTPending Prescriptions: Disp Refills oxyCODONE HCl 5 MG Oral Tablet (Oxy IR) 90 Tab*0 Sig: Take 1.5 Tablets by mouth 2 times a day as needed for Pain, Severe. * Telephone Encounter - Evelyn Adams RPh - 05/03/2024 3:31 PM EDT I have reviewed the patient’s controlled substance dispensing history in the Prescription Drug Monitoring Program in compliance with the [facility] regulations before prescribing a controlled substance. PDMP checked on 05/03/2024. Pending Prescriptions: Disp Refills oxyCODONE HCl 5 MG Oral Tablet (Oxy IR) 90 Tab*0 Sig: Take 1.5 Tablets by mouth 2 times a day as needed for Pain, Severe. Last Visit: Visit date not found (in office), 04/15/2024 (telemedicine) Next Visit: Visit date not found Date medication was last filled: 04/05/24 Date medication is due for refill: 05/04/24 Pharmacy: [facility] [phone] [facility] Is this request for a controlled substance? [...] in Results Review. Please approve if appropriate. Evelyn Hall PharmD Clinical Pharmacist [facility] ([facility]) [phone] 05/03/2024, 3:31 PM documented in this encounter Plan of Treatment Upcoming Encounters Date Type Department Care Team (Latest Contact Info) Description 05/24/2024 2:45 PM EDT Imaging Radiology [facility] 1st [facility] [address] [place] [phone] 05/24/2024 3:30 PM EDT Office Visit Cardiology, [facility] [address] [place] [address] Yulia Almonte CRNP [address] [place] [address] 07/07/2024 10:25 AM EDT Hospital Encounter OR [facility], Operating Room, [facility] - 4th Floor [address] [phone] Jong Myers, DO [address] [place] [address] 07/07/2024 10:25 AM EDT - 07/07/2024 11:06 AM EDT Surgery OR [facility], Operating Room, [facility] - 4th Floor [address] [place] [phone] Jong Myers, DO [address] [place] [address] COLONOSCOPY FLEXIBLE PROXIMAL DIAGNOSTIC Scheduled Procedures Name [...] DXA Scan 12/20/2022 12/21/2015 Mammogram 04/23/2023 04/22/2022, 03/08/2022, 11/08/2020, Additional history exists COVID-19 Vaccine ( [...] failure and stage 3a chronic kidney disease ([facility]) Tachy-jess syndrome ([facility]) Sinoatrial node dysfunction Cardiac pacemaker in situ Personal history of pulmonary embolism Chronic low back pain, unspecified back pain laterality, unspecified whether sciatica present Dysfunction of both eustachian tubes Dysfunction of Eustachian tube Obesity, morbid (more than 100 lbs over ideal weight or BMI > 40) ([facility]) Morbid obesity Chronic bilateral low back pain with bilateral sciatica- Primary Cardiac pacemaker in situ Hypertensive heart and kidney disease with chronic diastolic congestive heart failure and stage 3a chronic kidney disease ([facility]) Paroxysmal A-fib ([facility]) Atrial fibrillation Hypothyroidism, unspecified type Gastroesophageal reflux disease without esophagitis Esophageal reflux Major depressive disorder, recurrent, moderate ([facility]) Major depressive disorder, recurrent episode, moderate Paroxysmal A-fib ([facility])- Primary Atrial fibrillation Major depressive disorder, recurrent, moderate ([facility]) Major depressive disorder, recurrent episode, moderate PAF (paroxysmal atrial fibrillation) ([facility]) Atrial fibrillation Essential (primary) hypertension Unspecified essential hypertension Coronary artery disease due to calcified coronary lesion Adult BMI 50.0-59.9 kg/sq m ([facility]) Body Mass Index 50.0-59.9, adult Pulmonary embolism [...] in adult, unspecified whether serious comorbidity present ([facility]) Chronic kidney disease (CKD), stage II (mild) [...] Agents on File Name Relationship Healthcare [facility] Drew Banerjee Adult Child First Alternate Health Care Agent Care Teams Chef Under Relationship Specialty Start Date End Date Naveed Peters MD [address] [address] [address] PCP - General Internal Medicine 12/15/23 documented as of this encounter
--- OUTSIDE RECORDS SUMMARY | 2024-06-16 20:30 | External Medical Summary | Summary of Care ---
Author Name Unknown Organization [facility] Address [address] [place] [address] Phone [phone] Care Team Providers Care Spray Crew Name Role Phone Naveed Peters MD Primary Care Provider [phone] Reason for Visit * Reason Comments eRx-Medication Refill Encounter Details Date Type Department Care Team (Late st Contact Info) Description 05/16/2024 Refill Cardiology, [facility] [address] [facility] [place] [phone] Chloe Low, [address] [facility] [place] [address] Allergies Active Allergy Reactions Criticality Noted Date Comments Celecoxib Hives 12/27/1999 Latex Rash 07/11/2011 Lisinopril Cough 05/29/2014 documented as of this encounter (statuses as of 05/18/2024) Medications Aspirin 81 MG Tablet Take 1 [...] Active Wegovy 0.5 MG/0.5ML Subcutaneous Solution Auto-injector (Renaeglutsherin-Jovany ght Management) Inject 0.5 mg under the skin [...] Pain, Severe. 90 Tablet 05/04/19 25 Active Amiodarone HCl 200 MG Oral Tablet (Cordarone) Take 1 tablet by mouth once daily 90 Tablet 05/18/19 25 Active Amiodarone HCl 200 MG Oral Tablet (Cordarone) Take 1 tablet by mouth once daily 90 Tablet 02/17/19 25 025 Discontinued documented as of this encounter (statuses as of 05/18/2024) Active Problems Problem Noted Date Diagnosed Date [...] (01/05/2015): Statin stopped during 01/01/15 hospitalization at [facility] due to elevated LFTs Assessment & [...] as of this encounter (statuses as of 05/18/2024) Resolved Problems Problem Noted Date Diagnosed Date [...] as of this encounter (statuses as of 05/18/2024) Immunizations Name Administration Dates Next Due COVID-19 mRNA, LNP-s, No Pre serve, 2-Dose Series (Cardiac Dimensions) 02/05/2021 COVID-19, MRNA-LNP, PF, 30 M CG/0.3 mL, 12 YRS AND ABOVE, IM ([employer]-Comirnat) 01/26/2023 Pneumococcal Conjugate Vacc, 13 Valent (Prevnar) 01/16/2016 Pneumococcal Conjugate Vacci ne, 20-valent ([id number]) 10/09/2021 Pneumococcal Polysaccharide PPV23 (Pneumovax) 12/21/2014 Season [...] No 12/07/2023 Does the household have a [facility] source of income? (Household - [...] encounter Miscellaneous Notes * Telephone Encounter - Chloe Low DO - 05/17/2024 4:01 PM EDT Signed Prescriptions: Disp Refills Amiodarone HCl 200 MG Oral Tablet (Cordaro*90 Tab*0 Sig: Take 1 tablet by mouth once daily Authorizing Provider: CHLOE LOW * Telephone Encounter - Syl Ramires LPN - 05/16/2024 3:26 PM EDTPending Prescriptions: Disp Refills Amiodarone HCl 200 MG Oral Tablet [Pharmac*90 Tab*0 Sig: Take 1 tablet by mouth once daily * Telephone Encounter - Donna Sanders - 05/16/2024 3:12 PM EDTPending Prescriptions: Disp Refills Amiodarone HCl 200 MG Oral Tablet [Pharmac*90 Tab*0 Sig: Take 1 tablet by mouth once daily * Telephone Encounter - Donna Sanders - 05/16/2024 3:10 PM EDT Did you pend patient's preferred pharmacy and medication before forwarding?yes [facility] [address] [place] [address] [facility] Pending Prescriptions: Disp Refills Amiodarone HCl 200 MG Oral Tablet (Cordar*90 Tab*0 Sig: Take 1 tablet by mouth once daily Last Visit: 12/13/2021 (in office), 09/12/2022 (telemedicine) Next Visit: Visit date not found If no future appointments scheduled, and last appointment is greater than a year ago, please schedule patient for a follow-up appointment Last date the medication was ordered: 02/18/2024 Is this request for a controlled substance?No Urine Drug Screen: Results for orders placed or performed in [...] results can be found in Results Review. Patient Phone Numbers Labs: Lab Results Component Value Date/Time CREAT 1.1 (H) 03/29/2024 08:43 AM CREAT 1.1 (H) 02/24/2020 09:53 AM POTASSIUM 4.1 03/29/2024 08:43 AM POTASSIUM 3.8 02/24/2020 09:53 AM TSH 4.48 (H) 03/29/2024 08:43 AM TSH 4.65 (H) 02/24/2020 09:53 AM LDL 57 04/07/2023 09:23 AM LDL 66 10/28/2019 11:28 AM LDL NOT APPLICABLE 10/28/2019 11:28 AM ALT 23 12/07/2023 03:14 PM ALT 20 02/24/2020 09:53 AM HGBA1C 5.6 04/07/2023 09:23 AM HGBA1C 5.7 (H) 07/18/2019 02:28 PM documented in this encounter Plan of Treatment Upcoming Encounters Date Type Department Care Team (Latest Contact Info) Description 05/24/2024 2:45 PM EDT Imaging Radiology [facility] 1st [facility] [address] [place] [phone] 05/24/2024 3:30 PM EDT Office Visit Cardiology, [facility] [address] [place] [phone] Yulia Almonte CRNP [address] [place] [address] [phone] 07/07/2024 10:25 AM EDT Hospital Encounter OR [facility], Operating Room, [facility] - 4th Floor [address] [place] [address] [phone] Jong Myers, DO [address] [place] [address] 07/07/2024 10:25 AM EDT - 07/07/2024 11:06 AM EDT Surgery OR [facility], Operating Room, [facility] - 4th Floor [address] [place] [phone] Jong Myers, DO [address] [place] [address] COLONOSCOPY FLEXIBLE PROXIMAL DIAGNOSTIC Scheduled Procedures Name [...] First Alternate Health Care Agent Care Teams Spray Crew Relationship Specialty Start Date End Date Naveed Peters MD [address] [place] [address] PCP - General Internal Medicine 12/15/23 documented as of this encounter
--- OUTSIDE RECORDS SUMMARY | 2024-06-16 20:31 | External Medical Summary ---
Author Name Unknown Address Unknown Organization [id number]:[facility] [place] [address] [place] [address] Laboratory Report Ordering Provider Test Date Status TOYA BROWN 03/29/2024 08:43:00 Final Observation Date Value Abnormality Reference (Units ) Status T4, Free 03/29/2024 08:43:00 1.4 0.9-1.7 (n g/dL) Final Performing Location LAB[facility]ATORY [facility] - [address] [place] [address]
--- OUTSIDE RECORDS SUMMARY | 2024-06-16 20:31 | External Medical Summary | Summary of Care ---
Author Name Unknown Organization [facility] Address [address] [place] [address] Phone [phone] Care Team Providers Care Assistant Community Manager Name Role Phone Naveed Peters MD Primary Care Provider [phone] Reason for Referral * Evaluate & Treat - Unlimited Visits (Within 10 days (routine)) - Authorized Specialty Diagnoses / Procedures Referred By Miriam barillas Referred To Contact HOME CARE / Home Care Diagnoses Pain of both shoulder joints Neck pain Pain in both upper extremities Naveed Peters MD [address] [place] [address] Phone: tel: fax: Referral ID Status Reason Start Date Expiration Date Visits Requested Visits Authorized [id number] Authorized Specialty Services Required 03/29/2024 999 999 Question Answer Referral Priority Within 10 days (routine) Where should this appointment be scheduled? Pradeep Comments Documentation of [id number] Encounter Addendum Patient Name: Barbara Banerjee I certify that this patient is under my care and that I, or a nurse practitioner or physician's assistant branch manager working with me, had a [id number] encounter that meets the physician [id number] encounter requirements with this patient on: Mar 29 2024 The encounter with the patient was in whole, or in part, for the following medical condition, which is the primary reason for home health care (List medical condition): Shoulder pain , arms pain, neck pain I certify that, based on my findings, the following services are medically necessary home health services: Physical Therapy To provide the following care/treatments: (All hospitalists not following the patient after discharge should complete this section): PT Primary Care Physician to follow home care plan of care after discharge: naveed peters My clinical findings support the need for the above services because: home bound, gait difficulty Further, I certify that my clinical findings support that this patient is homebound (i.e. Absences from home require considerable and taxing effort and are for medical reasons or yazidi services or infrequently or of short duration when for other reason) because: Not able to drive Physician Signature: Date of Signature: Physician Printed Name: Naveed Peters MD Encounter Details Date Type Department Care Team (Late st Contact Info) Description 03/29/2024 10:00 AM EST Telemedicine 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 Active Metoprolol Succinate ER 25 MG Oral Tablet Extended Release 24 Hour (toPROL XL)Indications:P AF (paroxysmal atrial fibrillation) (HCC) TAKE 1 TABLET BY MOUTH IN THE MORNING 90 Tablet 3 04/14/19 24 Active Fluticasone Propionate 50 MCG/ACT Nasal Suspension (Flonase) Administer 2 Sprays into each nostril in the morning. 9.9 mL 5 04/13/19 24 Active Omeprazole 20 MG Oral Capsule Delayed Release (PriLOSEC)Indica tions:Gastroesop hageal reflux disease Take 2 Capsules by mouth in the morning and 2 Capsules before bedtime. 360 Capsule 3 05/04/19 24 Active Atorvastatin Calcium 40 MG Oral [...] morning. 90 Tablet 3 06/10/19 24 Active Eliquis 5 MG Oral Tablet (Apixaban) Take 1 tablet by mouth twice daily 180 Tablet 1 09/03/19 24 Active Vitamin B-12 500 MCG Oral [...] and 36 Tablet 1 03/02/19 25 Active oxyCODONE HCl 5 MG Oral Tablet (Oxy IR)Indications:C hronic right-sided low back pain with right-sided sciatica Take 1.5 Tablets by mouth 2 times a day as needed for Pain, Severe. 90 Tablet 03/08/19 25 Active Levothyroxine Sodium 75 MCG Oral [...] package directions 21 Tablet 03/29/19 25 Active Wegovy 0.25 MG/0.5ML Subcutaneous Solution Auto-injector (Semaglutide-[facility])Indic ations:Class 3 obesity with alveolar hypoventilation, serious comorbidity, and body mass index (BMI) of 50.0 to 59.9 in adult (HCC),Coronary artery disease due to calcified coronary lesion,Cardiac pacemaker in situ,Paroxysmal A-fib (HCC),Stress-ind uced cardiomyopathy,O ld [place] (myocardial infarction),JALEN on CPAP,Hypertensiv e heart and kidney disease with chronic diastolic congestive heart failure and stage 2 chronic kidney disease (HCC) Inject 0.5 mg under the skin once a week. 6 mL 1 03/29/19 25 Active Wegovy 0.25 MG/0.5ML Subcutaneous Solution Auto-injector (Semaglutide-[facility])Indic ations:Class 3 obesity with alveolar hypoventilation, serious comorbidity, and body mass index (BMI) of 50.0 to 59.9 in adult (HCC),Coronary artery disease due to calcified coronary lesion,Cardiac pacemaker in situ,Paroxysmal A-fib (HCC),Stress-ind uced cardiomyopathy,O ld [place] (myocardial infarction),JALEN on CPAP,Hypertensiv e heart and kidney disease with chronic diastolic congestive heart failure and stage 2 chronic kidney disease ([facility]) Inject 0.25 mg under the skin once a week. 2 mL 1 03/10/19 25 025 Discontin ued(Refil l) documented as of this encounter (statuses as of 03/29/2024) Active Problems Problem Noted Date Diagnosed Date [...] [facility]. May benefit from glucocorticoid injections. [...] can see ENT. She voiced understanding. Old [place] (myocardial infarction) 02/10/2018 Personal history of pulmonary [...] (01/05/2015): Statin stopped during 01/01/15 hospitalization at [facility] due to elevated LFTs Assessment & [...] as of this encounter (statuses as of 03/29/2024) Resolved Problems Problem Noted Date Diagnosed Date [...] 109 Microscopic hematuria 03/15/20152016 Overview (05/16/2015): Cysto 3/30/16 normal Beta-joan intolerance 03/07/2015 Overview (03/07/2015): HR [...] as of this encounter (statuses as of 03/29/2024) Immunizations Name Administration Dates Next Due COVID-19 mRNA, LNP-s, No Pre serve, 2-Dose Series (Springpad) 02/05/2021 COVID-19, MRNA-LNP, PF, 30 M CG/0.3 mL, 12 YRS AND ABOVE, IM (needmade-Comirnaty) 01/26/2023 Pneumococcal Conjugate Vacc, 13 Valent (Prevnar) 01/16/2016 Pneumococcal Conjugate Vacci ne, 20-valent (Bworowh03) 10/09/2021 Pneumococcal Polysaccharide PPV23 (Pneumovax) 12/21/2014 Season [...] documented in this encounter Progress Notes * Naveed Peters MD - 03/29/2024 10:03 AM EST Subjective Barbara Banerjee is a 73 year old female. No chief complaint on file. HPI: Patient location: HOME. I was in a hospital or clinic location. After connecting through televideo,patient was verified with two unique identifiers. Patient (or authorized legal termite control service representative) was then informed that this was a Telemedicine visit and being conducted confidentially over secure lines. Methods to assure confidentiality were taken. Patient acknowledged consent and understanding of pr ivacy and security of the Telemedicine visit. The patient agreed to participate. Here to discuss about acute post neck pain, shoulders pain, and arms pain , radiating down to forearms After she had to use a plunger three times for her cloged comodo about 2 wks ago Having persistent pain , limited ROM of shoulders Known chronic back issue, has been taking neurontin 200 AM and 300 Qhs Advised to take neurontin at noon 200 mg And will try steroid Not able to drive , usually home bound Will send xrays for test and also home health for PT And has been taking low dose wegovy for weight loss, severe morbid obesity , BMi 58 Lost about 17 pounds per pt Would like to increase dose to 0.5 mg PMH: Patient Active Problem List Diagnosis Gastroesophageal reflux disease without esophagitis Coronary artery disease due to calcified coronary lesion Paroxysmal A-fib (HCC) Dyslipidemia, goal LDL below 130 Vitamin B12 deficiency Lumbosacral radiculopathy JALEN on CPAP Umbilical hernia Hernia, hiatal Major depressive disorder, recurrent, moderate (HCC) Benign paroxysmal positional vertigo of right ear Stress-induced cardiomyopathy Personal history of pulmonary embolism Old [place] (myocardial infarction) Hypothyroidism Cardiac pacemaker in situ Chronic low back pain Dysfunction of both eustachian tubes Essential (primary) hypertension Class 3 obesity with alveolar hypoventilation and body mass index (BMI) of 50.0 to 59.9 in adult ([facility]) Chronic kidney disease (CKD), stage II (mild) Wrist impingement syndrome, unspecified laterality Middle ear effusion, left Hypertensive kidney disease 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 6 mL 1 Aspirin 81 MG Tablet Take 1 Tablet [...] mouth 3 times a day as needed. Metoprolol Succinate ER 25 MG Oral Tablet Extended Release 24 Hour (toPROL XL) TAKE 1 TABLET BY MOUTH IN THE MORNING 90 Tablet 3 Fluticasone Propionate 50 MCG/ACT Nasal Suspension (Flonase) Administer 2 Sprays into each nostril in the morning. 9.9 mL 5 Omeprazole 20 MG Oral Capsule Delayed Release (PriLOSEC) Take 2 Capsules by mouth in the morning and 2 Capsules before bedtime. 360 Capsule 3 Atorvastatin Calcium 40 MG Oral Tablet (Lipitor) TAKE 1 TABLET BY MOUTH IN THE MORNING FOR CHOLESTEROL 90 Tablet 3 Escitalopram Oxalate 20 MG Oral Tablet (Lexapro) Take 1 Tablet by mouth in the morning. 90 Tablet 3 amLODIPine Besylate 5 MG Oral Tablet (Norvasc) Take 1 Tablet by mouth in the morning. 90 Tablet 3 Eliquis 5 MG Oral Tablet (Apixaban) Take 1 tablet by mouth twice daily 180 Tablet 1 Vitamin B-12 500 MCG Oral Tablet (vitamin B-12) Take 1 Tablet by mouth in the morning. Losartan Potassium 100 MG Oral Tablet (Cozaar) TAKE 1 TABLET BY MOUTH IN THE MORNING 90 Tablet 0 Amiodarone HCl 200 MG Oral Tablet (Cordarone) Take 1 tablet by mouth once daily 90 Tablet 0 Gabapentin 100 MG Oral Capsule (Neurontin) TAKE 2 CAPSULES BY MOUTH IN THE MORNING 2 AT NOON AND 3 AT BEDTIME 217 Capsule 5 Furosemide 20 MG Oral Tablet (Lasix) Take 1 Tablet by mouth daily as needed for Other (Edema). Every Thursday, Thursday and 36 Tablet 1 oxyCODONE HCl 5 MG Oral Tablet (Oxy IR) Take 1.5 Tablets by mouth 2 times a day as needed for Pain,Severe. 90 Tablet 0 Levothyroxine Sodium 75 MCG Oral Tablet (Levoxyl) Take 1 Tablet by mouth in the morning. (at least 30 min prior to breakfast or other meds). 90 Tablet 3 Cetirizine HCl 10 MG Oral Tablet (ZyrTEC) Take 1 Tablet by mouth in the morning. 90 Tablet 1 No current facility-administered medications for this visit. Past Medical History: Diagnosis Date Benign neoplasm of colon 07/2011 hyperplastic polyp repeat in 10 yrs Carpal tunnel syndrome Diaphragmatic hernia without mention of obstruction or gangrene Hiatal Hernia Headache(784.0) Headache NOS Hypertension Microscopic hematuria 03/15/2015 Cysto 05/16/15 normal Morbid obesity with body mass index (BMI) of 45.0 to 49.9 in adult ([facility]) 06/18/2018 Progress Notes by PATRIZIA Chaudhry-03/28/2022 Sign when Signing Visit Hemoglobin A1C AdultBMI 50.0-59.9 kg/sq m ([facility]) - Hemoglobin A1C NO LONGER CURRENT Paroxysmal atrial fibrillation ([facility]) Pulmonary embolism on right ([facility]) 12/26/2014 CT for PE 11/23/14: Nonocclusive [...] by Ronaldo Giraldo MD at [facility] ECHO (2-D COMPLETE) 12/25/2014 EF 64%, RV dilated/hypokinetic ECHO (2-D COMPLETE) 01/07/2015 EF 50%, moderate wall motion ab (septal/inferior wall) EGD, FLEXIBLE, DIAGNOSTIC 05/27/2021 mild-mod inflammation / [facility] EGD, FLEXIBLE, DIAGNOSTIC 09/05/2021 sm hiatal hernia / [facility] EMG 2 EXTREMITY 02/07/2015 L5-S1 radiculopathy INFORMATION [...] of Onset Heart attack Father 62 fatal [place] Heart disease Father Arthritis Sister Tianna Cancer Sister Tianna melanoma Hypertension Sister Tianna Diabetes Sister Marianne Hypertension Sister Marianne Breast Cancer Sister Marianne 48 Heart Disorder Sister Kristine heart murmur, valvular heart disease Depression Sister Kristine No Past Hx Sister Tammie well Arthritis Brother Vinicio gout Hypertension Brother Vinicio Diabetes Brother Viniico Renal Hx Brother Vinicio COPD Brother Alcon [...] Stability Do you currently live in a chcf or have no steady place to sleep [...] Not on file Review of Systems Constitutional: Positive for activity change and fatigue. Negative for appetite change, chills, diaphoresis, fever and unexpected weight change. Respiratory: Negative for shortness of breath. Cardiovascular: Negative for chest pain. Musculoskeletal: Positive for arthralgias, back pain, gait problem, myalgias, neck pain and neck stiffness. Neurological: Positive for numbness (arms, painful,). Psychiatric/Behavioral: Positive for dysphoric mood and sleep disturbance. Negative for agitation and behavioral problems. Objective There were no vitals taken for this visit. Physical Exam Constitutional: General: She is not in acute distress. Appearance: Normal appearance. She is obese. She is not ill-appearing, toxic- appearing or diaphoretic. HENT: Head: Normocephalic and atraumatic. Nose: Nose normal. Eyes: Extraocular Movements: Extraocular movements intact. Pulmonary: Effort: Pulmonary effort is normal. No respiratory distress. Musculoskeletal: General: Tenderness present. Right shoulder: Tenderness present. Decreased range of motion. Left shoulder: Tenderness present. Decreased range of motion. Cervical back: Tenderness present. Neurological: Mental Status: She is alert and oriented to person, place, and time. Psychiatric: Behavior: Behavior normal. ASSESSMENT/PLAN: Pain of both shoulder joints (Primary) - XR SHOULDER, 2 OR MORE VIEWS - XR C SPINE 4-5 VIEWS - HOME HEALTH REFERRAL OP Neck pain - XR SHOULDER, 2 OR MORE VIEWS - XR C SPINE 4-5 VIEWS - HOME HEALTH REFERRAL OP Pain in both upper extremities - XR SHOULDER, 2 OR MORE VIEWS - XR C SPINE 4-5 VIEWS - HOME HEALTH REFERRAL OP Class 3 obesity with alveolar hypoventilation, serious comorbidity, and body mass index (BMI) of 50.0 to 59.9 in adult (HCC) - Wegovy 0.25 MG/0.5ML Subcutaneous Solution Auto-injector (Semaglutide-Weight Management); Inject 0.5 mg under the skin once a week. Coronary artery disease due to calcified coronary lesion - Wegovy 0.25 MG/0.5ML Subcutaneous Solution Auto-injector (Semaglutide-Weight Management); Inject 0.5 mg under the skin once a week. Cardiac pacemaker in situ - Wegovy 0.25 MG/0.5ML Subcutaneous Solution Auto-injector (Semaglutide-Weight Management); Inject 0.5 mg under the skin once a week. Paroxysmal A-fib (HCC) - Wegovy 0.25 MG/0.5ML Subcutaneous Solution Auto-injector (Semaglutide-Weight Management); Inject 0.5 mg under the skin once a week. Stress-induced cardiomyopathy - Wegovy 0.25 MG/0.5ML Subcutaneous Solution Auto-injector (Semaglutide-Weight Management); Inject 0.5 mg under the skin once a week. Old [place] (myocardial infarction) - Wegovy 0.25 MG/0.5ML Subcutaneous Solution Auto-injector (Semaglutide-Weight Management); Inject 0.5 mg under the skin once a week. JALEN on CPAP - Wegovy 0.25 MG/0.5ML Subcutaneous Solution Auto-injector (Semaglutide-Weight Management); Inject 0.5 mg under the skin once a week. 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 Body mass index (BMI) of 50.0 to 59.9 in adult (HCC) Other orders - methylPREDNISolone 4 MG Oral Tablet Therapy Pack (Medrol Dosepack); follow package directions Check-out note: Home health for PT Also please set up mobile xrays for patient Neurontin Steroid Xrays PT home health Wegovy 0.5 m weekly Diet Naveed Peters MD documented in this encounter Plan of Treatment Upcoming Encounters Date Type Department Care Team (Latest Contact Info) Description 04/26/2024 3:30 PM EDT Office Visit Cardiology, [facility] [address] [place] [address] Yulia Almonte CRNP [address] [id number] 05/05/2024 3:30 PM EDT Imaging Radiology [facility] [address] [id number] 07/07/2024 11:07 AM EDT Hospital Encounter OR [facility], Operating Room, [facility] - 4th Floor [address] [phone] Jong Myers, [address] [address] 07/07/2024 11:07 AM EDT - 07/07/2024 11:48 AM EDT Surgery OR [facility], Operating Room, [facility] - 4th Floor [address] [phone] Jong Myers, DO [address] [place] [address] COLONOSCOPY FLEXIBLE PROXIMAL DIAGNOSTIC Scheduled Orders Name Type Priority Associated Diagnoses Orde r Schedule XR SHOULDER, 2 OR MORE VIEWS Medical Imaging Routine Pain of both shoulder joints Neck pain Pain in both upper extremities Ordered: 03/29/2024 XR C SPINE 4-5 VIEWS Medical Imaging Routine Pain of both shoulder joints Neck pain Pain in both upper extremities Ordered: 03/29/2024 Scheduled Procedures Name Priority Associated Diagnoses Date/Ti me COLONOSCOPY FLEXIBLE PROXIMAL DIAGNOSTIC Recall Personal history of colonic polyps 07/07/2024 11:07 AM EDT Scheduled Referrals Name Type Priority Associated Diagnoses Orde r Schedule HOME HEALTH REFERRAL OP Referral Within 10 days (routine) Pain of both shoulder joints Neck pain Pain in both upper extremities Ordered: 03/29/2024 Health Maintenance Due Date Last Done Comments Cologuard 10/02/1995 Fecal Occult Blood Test 10/02/1995 Sigmoidoscopy 10/02/1995 Adult Wellness Visit 2016 Colonoscopy 07/17/2021 07/18/2011, 07/18/2011 Colorectal Cancer Screening 07/17/2021 DTap/Tdap Vaccines (2 - Td or Tdap) 11/26/2021 11/27/2011 DXA Scan 12/20/2022 12/21/2015 Mammogram 04/23/2023 04/22/2022, 08/2022, 11/08/2020, Additional history exists COVID-19 Vaccine ( season) 2023 01/26/2023, 02/05/2021, 07/12/2020, Additional history exists TSH 09/02/2024 09/03/2023, 03/20, 11/11/2022, Additional history exists Depression Monitoring 12/06/2024 12/07/2023 GFR 03/29/2025 03/29/2024, 11/17, 04/07/2023, Additional history exists Albumin/Creatinine Ratio 12/06/2026 [...] failure and stage 3a chronic kidney disease ([facility]) Tachy-jess syndrome ([facility]) Sinoatrial node dysfunction Cardiac pacemaker in situ Personal history of pulmonary embolism Chronic low back pain, unspecified back pain laterality, unspecified whether sciatica present Dysfunction of both eustachian tubes Dysfunction of Eustachian tube Obesity, morbid (more than 100 lbs over ideal weight or BMI > 40) ([facility]) Morbid obesity Chronic bilateral low back pain with bilateral sciatica- Primary Cardiac pacemaker in situ Hypertensive heart and kidney disease with chronic diastolic congestive heart failure and stage 3a chronic kidney disease ([facility]) Paroxysmal A-fib ([facility]) Atrial fibrillation Hypothyroidism, unspecified type Gastroesophageal reflux disease without esophagitis Esophageal reflux Major depressive disorder, recurrent, moderate ([facility]) Major depressive disorder, recurrent episode, moderate Paroxysmal A-fib ([facility])- Primary Atrial fibrillation Major depressive disorder, recurrent, moderate ([facility]) Major depressive disorder, recurrent episode, moderate PAF (paroxysmal atrial fibrillation) ([facility]) Atrial fibrillation Essential (primary) hypertension Unspecified essential hypertension Coronary artery disease due to calcified coronary lesion Adult BMI 50.0-59.9 kg/sq m ([facility]) Body Mass Index 50.0-59.9, adult Pulmonary embolism on right ([facility]) Other pulmonary embolism and infarction JALEN [...] in adult, unspecified whether serious comorbidity present ([facility]) Chronic kidney disease (CKD), stage II (mild) Chronic kidney disease, Stage II (mild) Pain of both shoulder joints- Primary Neck pain Cervicalgia Pain in both upper extremities Class 3 obesity with alveolar hypoventilation, serious comorbidity, and body mass index (BMI) of 50.0 to 59.9 in adult ([facility]) Coronary artery disease due to calcified coronary lesion Cardiac pacemaker in situ Paroxysmal A-fib ([facility]) Atrial fibrillation Stress-induced cardiomyopathy Takotsubo syndrome Old [place] (myocardial infarction) Old myocardial infarction JALEN on CPAP Obstructive sleep apnea (adult) (pediatric) 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
--- OUTSIDE RECORDS SUMMARY | 2024-06-16 20:31 | External Medical Summary | Summary of Care ---
Author Name Unknown Organization [facility] Address [address] [place] [address] Phone [phone] Care Team Providers Care Settlement Technician Name Role Phone Naveed Peters MD Primary Care Provider [phone] Encounter Details Date Type Department Care Team (Late st Contact Info) Description 03/29[facility]20[facility] [address] [place] [phone] Naveed Peters MD [address] [facility], [facility] [place] [address] Allergies Active Allergy Reactions Criticality Noted Date Comments Celecoxib Hives 12/27/1999 Latex Rash 07/11/2011 Lisinopril Cough 05/29/2014 documented as of this encounter (statuses as of 03/31/2024) Medications Aspirin 81 MG Tablet Take 1 [...] the morning. 9.9 mL 5 4 Active Omeprazole 20 MG Oral Capsule Delayed Release (PriLOSEC)Indica tions:Gastroesop hageal reflux disease Take 2 Capsules by mouth in the morning and 2 Capsules before bedtime. 360 Capsule 3 4 Active Atorvastatin Calcium 40 MG Oral [...] the morning. 90 Tablet 3 4 Active Eliquis 5 MG Oral Tablet (Apixaban) Take 1 tablet by mouth twice daily 180 Tablet 1 4 Active Vitamin B-12 500 MCG Oral [...] Thursday and 36 Tablet 1 5 Active oxyCODONE HCl 5 MG Oral Tablet (Oxy IR)Indications:C hronic right-sided low back pain with right-sided sciatica Take 1.5 Tablets by mouth 2 times a day as needed for Pain, Severe. 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 6 mL 1 5 Active documented as of this encounter (statuses as of 03/31/2024) Active Problems Problem Noted Date Diagnosed Date [...] can see ENT. She voiced understanding. Old [place] (myocardial infarction) 02/10/2018 Personal history of pulmonary [...] as of this encounter (statuses as of 03/31/2024) Resolved Problems Problem Noted Date Diagnosed Date [...] as of this encounter (statuses as of 03/31/2024) Immunizations Name Administration Dates Next Due COVID-19 mRNA, LNP-s, No Pre serve, 2-Dose Series (Applix) 02/05/2021 COVID-19, MRNA-LNP, PF, 30 M CG/0.3 mL, 12 YRS AND ABOVE, IM (Recurly-Comirnaty) 01/26/2023 Pneumococcal Conjugate Vacc, 13 Valent (Prevnar) 01/16/2016 Pneumococcal Conjugate Vacci ne, 20-valent ([id number]) 10/09/2021 Pneumococcal Polysaccharide PPV23 (Pneumovax) 12/21/2014 Season [...] No 12/07/2023 Does the household have a [facility] source of income? (Household - for ages [...] Telephone Encounter - Naveed Peters MD - 03/31/2024 12:31 PM EST Sent 0.5 mg weekly wegovy * Telephone Encounter - Sarah Montano CPhT - 03/29/2024 12:55 PM EST [facility] advising dose in sig is not able to be reached with Wegovy 0.25. Please verify directions and send new rx to [facility]. Thanks, Sarah Montano CPhT, Tech II [facility] ([facility] (formerly [facility]pharm[facility]) [address] [place] [address] documented in this encounter Plan of Treatment Upcoming Encounters Date Type Department Care Team (Latest Contact Info) Description 04/26/2024 3:30 PM EDT [facility] [address] [place] [address] Yulia Almonte CRNP [address] [place] [address] 05/05/2024 3:30 PM EDT Imaging Radiology [facility] [address] [facility], [place] [address] [place] [phone] 07/07/2024 11:07 AM EDT Hospital Encounter OR [facility], Operating Room, [facility] - 4th Floor [address] [place] [phone] Jong Myers, DO [address] [place] [address] 07/07/2024 11:07 AM EDT - 07/07/2024 11:48 AM EDT Surgery OR [facility], Operating Room, [facility] - 4th Floor [address] [place] [phone] Jong Myers, DO [address] [place] [address] COLONOSCOPY FLEXIBLE PROXIMAL DIAGNOSTIC Scheduled Procedures Name Priority Associated Diagnoses Date/Ti me COLONOSCOPY FLEXIBLE PROXIMAL DIAGNOSTIC Recall Personal history of colonic polyps 07/07/2024 11:07 AM EDT Health Maintenance Due Date Last [...] Agents on File Name Relationship [facility] Communication Drew Banerjee Adult Child First Alternate Health Care Agent Care Teams Settlement Technician Relationship Specialty Start Date End Date Naveed Peters MD [address] [place] [address] PCP - General Internal Medicine 12/15/23 documented as of this encounter
--- OUTSIDE RECORDS SUMMARY | 2024-06-16 20:31 | External Medical Summary | Summary of Care ---
Author Name Unknown Organization [facility] Address [address] [facility] [place] [address] Phone [phone] Care Team Providers Care Size Worker Name Role Phone Naveed Peters MD Primary Care Provider [phone] Reason for Visit * Reason Onset Date Comments Medication Refill 04/03/2024 Encounter Details Date Type Department Care Team (Late st Contact Info) Description 04/03/2024 Refill Family Practice [facility] [address] [facility] [place] [address] Irish Richard, DO [address] [facility] [place] [id number] Allergies Active Allergy Reactions Criticality Noted Date Comments Celecoxib Hives 12/27/1999 Latex Rash 07/11/2011 Lisinopril Cough 05/29/2014 documented as of this encounter (statuses as of 04/05/2024) Medications Aspirin 81 MG Tablet Take 1 [...] Active Wegovy 0.25 MG/0.5ML Subcutaneous Solution Auto-injector (Semaglutide-[facility])Indic ations:Class 3 obesity with alveolar hypoventilation, serious comorbidity, and body mass index (BMI) of 50.0 to 59.9 in adult ([facility]),Coronary artery disease due to calcified coronary lesion,Cardiac pacemaker in situ,Paroxysmal A-fib ([facility]),Stress-ind uced cardiomyopathy,O ld [place] (myocardial infarction),JALEN on CPAP,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 6 mL 1 03/29/19 25 Active Metoprolol Succinate ER 25 MG Oral Tablet Extended Release 24 Hour (toPROL XL)Indications:P AF (paroxysmal atrial fibrillation) ([facility]) TAKE 1 TABLET BY MOUTH IN THE MORNING 90 Tablet 03/31/19 25 Active Apixaban 5 MG Oral Tablet (Eliquis) Take 1 Tablet by mouth in the morning and 1 Tablet before bedtime. 180 Tablet 1 04/04/19 25 Active Eliquis 5 MG Oral Tablet (Apixaban) Take 1 tablet by mouth twice daily 180 Tablet 1 09/03/19 24 025 Discontin ued(Refil l) documented as of this encounter (statuses as of 04/05/2024) Active Problems Problem Noted Date Diagnosed Date [...] 02/27/2015 Overview (10/30/2016): Mild on sleep study 1/11/16 13 cm H2O per cpap titration 03/13/15 [...] (01/05/2015): Statin stopped during 01/01/15 hospitalization at [facility] due to elevated LFTs Assessment & [...] as of this encounter (statuses as of 04/05/2024) Resolved Problems Problem Noted Date Diagnosed Date [...] as of this encounter (statuses as of 04/05/2024) Immunizations Name Administration Dates Next Due COVID-19 mRNA, LNP-s, No Pre serve, 2-Dose Series (Pfizer) 02/05/2021 COVID-19, MRNA-LNP, PF, 30 M CG/0.3 mL, 12 YRS AND ABOVE, IM (PFIZER-Comirnaty) 01/26/2023 Pneumococcal Conjugate Vacc, 13 Valent (Prevnar) 01/16/2016 Pneumococcal Conjugate Vacci ne, 20-valent ([id number]) 10/09/2021 Pneumococcal Polysaccharide PPV23 (Pneumovax) 12/21/2014 Season [...] encounter Miscellaneous Notes * Telephone Encounter - Shannon Vitale [facility] - 04/04/2024 3:24 PM ESTSigned Prescriptions: Disp Refills Apixaban 5 MG Oral Tablet (Eliquis) 180 Ta*1 Sig: Take 1 Tablet by mouth in the morning and 1 Tablet before bedtime.Authorizing Provider: Blanquita PETERS User: SHANNON VITALE documented in this encounter Plan of Treatment Upcoming Encounters Date Type Department Care Team (Latest Contact Info) Description 04/26/2024 3:30 PM EDT Office Visit Cardiology, [facility] [address] [place] [address] Yulia Almonte CRNP [address] [place] [address] 05/05/2024 3:30 PM EDT Imaging Radiology [facility] [address] [facility] [address] [place] [phone] 07/07/2024 11:07 AM EDT Hospital Encounter OR [facility], Operating Room, [facility] - 4th Floor [address] [place] [phone] Jong Myers, DO [address] [place] [address] 07/07/2024 11:07 AM EDT - 07/07/2024 11:48 AM EDT Surgery OR [facility], Operating Room, [facility] - 4th Floor [address] [place] [phone] Jong Myers, DO [address] [place] [address] COLONOSCOPY FLEXIBLE PROXIMAL DIAGNOSTIC Scheduled Procedures Name [...] Agents on File Name Relationship Healthcare Agent [facility] p Communication Drew Banerjee Adult Child First Alternate Health Care Agent Care Teams Size Worker Relationship Specialty Start Date End Date Naveed Peters MD [address] [place] [address] PCP - General Internal Medicine 12/15/23 documented as of this encounter
--- OUTSIDE RECORDS SUMMARY | 2024-06-16 20:31 | External Medical Summary ---
Author Name Unknown Address Unknown Organization [id number] [address] [place] [address] Laboratory Report Ordering Provider Test Date Status TOYA BROWN 03/29/2024 08:43:00 Final Observation Date Value Abnormality Reference (Units ) Status WBC, Total 03/29/2024 08:43:00 5.76 4.00-10.8 0 (K/uL) Final RBC 03/29/2024 08:43:00 4.38 3.85-5.15 (M/uL) Final Hemoglobin 03/29/2024 08:43:00 13.6 12.0-15.3 (g/dL) Final HCT 03/29/2024 08:43:00 42.7 36.0-45.2 (%) Final MCV 03/29/2024 08:43:00 97.5 81.5-97.5 (fL) Final MCH 03/29/2024 08:43:00 31.1 27.0-34.0 (pg) Final MCHC 03/29/2024 08:43:00 31.9 32.0-36.0 (g/dL) Final RDW 03/29/2024 08:43:00 13.3 11.5-15.5 (%) Final Platelets 03/29/2024 08:43:00 201 140-400 (K /uL) Final MPV 03/29/2024 08:43:00 9.4 6.6-11.1 ( fL) Final Performing Location [facility] [address] [place] [address]
--- OUTSIDE RECORDS SUMMARY | 2024-06-16 20:31 | External Medical Summary | Summary of Care ---
Author Name Unknown Organization [facility] Address [address] [place] [address] Phone [phone] Care Team Providers Care Inclusion Special Education Teacher Name Role Phone Naveed Peters MD Primary Care Provider [phone] Reason for Visit * Reason Comments eRx-Medication Refill Encounter Details Date Type Department Care Team (Late st Contact Info) Description 03/30/2024 Refill Cardiology, [facility] 132 [facility] [place] [phone] Chloe Low Sakina, 400 [facility] [place] [address] PAF (paroxysmal atrial fibrillation) ([facility]) Allergies Active Allergy Reactions [...] Active Wegovy 0.25 MG/0.5ML Subcutaneous Solution Auto-injector (Semaglutide-We ight Management)Juhi cations:Class 3 obesity with alveolar hypoventilation , serious comorbidity, and body mass index (BMI) of 50.0 to 59.9 in adult (HCC),Coronary artery disease due to calcified coronary lesion,Cardiac pacemaker in situ,Paroxysmal A-fib ([facility]),Stress-in duced cardiomyopathy, [place] (myocardial infarction),JALEN on CPAP,Hypertensi ve heart and kidney disease with chronic diastolic congestive heart failure and stage 2 chronic kidney disease (HCC) Inject 0.5 mg under the skin once a week. 6 mL 1 03/29/19 25 Active Metoprolol Succinate ER 25 MG Oral Tablet Extended Release 24 Hour (toPROL XL)Indications: PAF (paroxysmal atrial fibrillation) ([facility]) TAKE 1 TABLET BY MOUTH IN THE MORNING 90 Tablet 03/31/19 25 Active Metoprolol Succinate ER 25 MG Oral Tablet Extended Release 24 Hour (toPROL XL)Indications: PAF (paroxysmal atrial fibrillation) ([facility]) TAKE 1 TABLET BY MOUTH IN THE MORNING 90 Tablet 3 04/14/19 24 025 Discontinued documented as of this [...] can see ENT. She voiced understanding. [place] (myocardial infarction) 02/10/2018 Personal history of pulmonary [...] (01/05/2015): Statin stopped during 01/01/15 hospitalization at [facility] due to elevated LFTs Assessment [...] (Prevnar) 01/16/2016 Pneumococcal Conjugate Vacci ne, 20-valent ([id number]) 10/09/2021 Pneumococcal Polysaccharide PPV23 (Pneumovax) 12/21/2014 Season [...] encounter Miscellaneous Notes * Telephone Encounter - Byron Henderson, [facility] - 03/31/2024 9:51 AM EST Signed Prescriptions: Disp Refills Metoprolol Succinate ER 25 MG Oral Tablet *90 Tab*0 Sig: TAKE 1 TABLET BY MOUTH IN THE MORNINGAuthorizing Provider: CHLOE LOW User: BYRON HENDERSON * Telephone Encounter - Byron Henderson RP - 03/31/2024 9:50 AM EST RX authorized for this fill only as patient is overdue for a visit. Zero additional refills given until upcoming appt. 04/26/2024 Byron Henderson RP, Pharm D Clinical Pharmacist [facility] 03/31/2024, 9:50 AM [phone] * Telephone Encounter - Donna Sanders - 03/30/2024 3:06 PM ESTPending Prescriptions: Disp Refills Metoprolol Succinate ER 25 MG Oral Tablet *90 Tab*0 Sig: TAKE 1 TABLET BY MOUTH IN THE MORNING * Telephone Encounter - Donna Sanders - 03/30/2024 3:03 PM EST Did you pend patient's preferred pharmacy and medication before forwarding?yes Pharmacy: [facility] [address] [address] [place] Pending Prescriptions: Disp Refills Metoprolol Succinate ER 25 MG Oral Tablet*90 Tab*0 Sig: TAKE 1 TABLET BY MOUTH IN THE MORNING Last Visit: 12/13/2021 (in office), 09/12/2022 (telemedicine) Next Visit: 04/26/2024 If no future appointments scheduled, and last appointment is greater than a year ago, please schedule patient for a follow-up appointment Last date the medication was ordered: 04/14/2023 Is this request for a controlled substance?No [...] 04/26/2024 3:30 PM EDT Office Visit Cardiology, [facility] [address] [place] [address] Yulia Almonte CRNP [address] [place] [address] 05/05/2024 3:30 PM EDT Imaging Radiology [facility]st [facility] [address] [place] [phone] 07/07/2024 11:07 AM EDT Hospital Encounter OR [facility], Operating Room, [facility] - 4th Floor [address] [place] [address] Jong Myers, DO [address] [place] [address] 07/07/2024 11:07 AM EDT - 07/07/2024 11:48 AM EDT Surgery OR [facility], Operating Room, [facility] - 4th Floor [address] [place] [phone] Jong Myers, DO [address] [place] [address] COLONOSCOPY FLEXIBLE PROXIMAL DIAGNOSTIC Scheduled Procedures Name [...] (mild) Chronic kidney disease, Stage II (mild) PAF (paroxysmal atrial fibrillation) (HCC) Atrial fibrillation Personal history of colonic polyps documented in [...] First Alternate Health Care Agent Care Teams Inclusion Special Education Teacher Relationship Specialty Start Date End Date Naveed Peters MD [address] [place] [address] PCP - General Internal Medicine 12/15/23 documented as of this encounter
--- OUTSIDE RECORDS SUMMARY | 2024-06-16 20:31 | External Medical Summary ---
Author Name Unknown Address Unknown Organization [id number] [address] [place] [address] Laboratory Report Ordering Provider Test Date Status TOYA BROWN 03/29/2024 08:43:00 Final Observation Date Value Abnormality Reference (Units ) Status SYNC LEUKOCYTES IN BLOOD BY AUTOMATED COUNT 03/29/2024 08:43:00 5.76 4.00-10.80 (K/uL) Final Segs 03/29/2024 08:43:00 59.2 40.0-75.0 (%) Final Lymphs % 03/29/2024 08:43:00 32.1 18.0-42.0 (%) Final Monos 03/29/2024 08:43:00 7.3 1.0-11.0 (%) Final Eosinophils 03/29/2024 08:43:00 1.2 0.0-6.0 (%) Final Basos 03/29/2024 08:43:00 0.2 0.0-2.0 (%) Final Absolute Segs 03/29/2024 08:43:00 3.41 1.80-7.70 (K/uL) Final Lymphs, absolute 03/29/2024 08:43:00 1.85 1.00-4.80 (K/ul) Final Monos, Abs 03/29/2024 08:43:00 0.42 0.00-1.10 (K/uL) Final Eos, Abs 03/29/2024 08:43:00 0.07 0.00-0.70 (K/uL) Final Basos, Abs 03/29/2024 08:43:00 0.01 0.00-0.20 (K/uL) Final Performing Location [facility] [address] [place] [address]
--- OUTSIDE RECORDS SUMMARY | 2024-06-16 20:31 | External Medical Summary | Summary of Care ---
Author Name Unknown Organization [facility] Address [address] [place] [address] Phone [phone] Care Team Providers Care Head Up Operator Helper Name Role Phone Naveed Peters MD Primary Care Provider [phone] Encounter Details Date Type Department Care Team (Late st Contact Info) Description 04/15/2024 9:00 AM EST Telemedicine [facility] [address] [facility] [place] [address] Naveed Peters MD [address] [place] [address] Pain of left lower leg*; Left knee pain, unspecified chronicity; Chronic bilateral low back pain with bilateral sciatica; Paroxysmal A-fib (HCC); Dyslipidemia, goal LDL below 130; Body mass index (BMI) of 50.0 to 59.9 in adult (HCC) Allergies Active Allergy Reactions Criticality Noted Date Comments Celecoxib Hives 12/27/1999 Latex Rash 07/11/2011 Lisinopril Cough 05/29/2014 documented as of this encounter (statuses as of 04/15/2024) Medications Aspirin 81 MG Tablet Take 1 [...] Active Wegovy 0.5 MG/0.5ML Subcutaneous Solution Auto-injector (Semaglutide-[facility]) Inject 0.5 mg under the skin once a week. 6 mL 1 5 Active documented as of this encounter (statuses as of 04/15/2024) Active Problems Problem Noted Date Diagnosed Date [...] can see ENT. She voiced understanding. Old [place] (myocardial infarction) 02/10/2018 Personal history of pulmonary [...] Statin stopped during 01/01/15 hospitalization at [facility] due to elevated LFTs Assessment [...] as of this encounter (statuses as of 04/15/2024) Resolved Problems Problem Noted Date Diagnosed Date [...] and stage 3a chronic kidney disease 07/31/2020 0204/2022 Overview: Per CKD protocol Assessment & Plan [...] as of this encounter (statuses as of 04/15/2024) Immunizations Name Administration Dates Next Due COVID-19 mRNA, LNP-s, No Pre serve, 2-Dose Series (ApplyMap) 02/05/2021 COVID-19, MRNA-LNP, PF, 30 M CG/0.3 mL, 12 YRS AND ABOVE, IM (PFIZER-Comirnaty) 01/26/2023 Pneumococcal Conjugate Vacc, 13 Valent (Prevnar) 01/16/2016 Pneumococcal Conjugate Vacci ne, 20-valent ([id number]) 10/09/2021 Pneumococcal Polysaccharide PPV23 (Pneumovax) 12/21/2014 Season [...] No 12/07/2023 Does the household have a [facility] source of income? (Household - for [...] Sign Reading Time Taken Comments Blood Pressure - - Pulse - - Temperature - - Respiratory Rate - - Oxygen Saturation - - Inhaled Oxygen Concentration - - Weight 139.7 kg (308 lb) 04/15/2024 9:03 AM EST Height - - Body Mass Index 54.56 12/07/2023 2:28 PM EDT documented in this [...] Progress Notes * Naveed Peters MD - 04/15/2024 9:08 AM EST Subjective Barbara Banerjee is a 73 year old female. No chief complaint on file. HPI: Patient location: HOME. I was in a hospital or clinic location. After connecting through televideo,patient was verified with two unique identifiers. Patient (or authorized legal software support representative) was then informed that this was a Telemedicine visit and being conducted confidentially over secure lines. Methods to assure confidentiality were taken. Patient acknowledged consent and understanding of pr ivacy and security of the Telemedicine visit. The patient agreed to participate. Here for recent progressing Lt leg knee pain Some numbness side of calf too Known lower back pain But she was concerned about clot , due to severe morbid obesity Has been losing weight with wegovy, no side effect And pt is on eliquis for known paroxysmal afib Known lumbar DDD , OA multiple joints Worse neck pain, shoulder pain , needs to get xrays too Known HL, taking lipitor, but chronic , didn't cause muscle pain PMH: Patient Active Problem List Diagnosis Gastroesophageal reflux disease without esophagitis Coronary artery disease due to calcified coronary lesion Paroxysmal A-fib ([facility]) Dyslipidemia, goal LDL below 130 Vitamin B12 deficiency Lumbosacral radiculopathy JALEN on CPAP Umbilical hernia Hernia, hiatal Major depressive disorder, recurrent, moderate (HCC) Benign paroxysmal positional vertigo of right ear Stress-induced cardiomyopathy Personal history of pulmonary embolism Old NC (myocardial infarction) Hypothyroidism Cardiac pacemaker in situ Chronic low back pain Dysfunction of both eustachian tubes Essential (primary) hypertension Class 3 obesity with alveolar hypoventilation and body mass index (BMI) of 50.0 to 59.9 in adult ([facility]) Chronic kidney disease (CKD), stage II (mild) Wrist impingement syndrome, unspecified laterality Middle ear effusion, left Hypertensive kidney disease 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 90 Tablet 1 methylPREDNISolone 4 MG Oral Tablet Therapy Pack (Medrol Dosepack) follow package directions 21 Tablet 0 Metoprolol Succinate ER 25 MG Oral Tablet Extended Release 24 Hour (toPROL XL) TAKE 1 TABLET BY MOUTH IN THE MORNING 90 Tablet 0 Apixaban 5 MG Oral Tablet (Eliquis) Take 1 Tablet by mouth in the morning and 1 Tablet before bedtime. 180 Tablet 1 oxyCODONE HCl 5 MG Oral Tablet (Oxy IR) Take 1.5 Tablets by mouth 2 times a day as needed for Pain,Severe. 90 Tablet 0 Wegovy 0.5 MG/0.5ML Subcutaneous Solution Auto-injector (Semaglutide-Weight Management) Inject 0.5 mg under the skin once a week. 6 mL 1 No current facility-administered medications for this visit. Past Medical History: Diagnosis Date Benign neoplasm of colon 07/2011 hyperplastic polyp repeat in 10 yrs Carpal tunnel syndrome Diaphragmatic hernia without mention of obstruction or gangrene Hiatal Hernia Headache(784.0) Headache NOS Hypertension Microscopic hematuria 03/15/2015 Cysto 05/16/15 normal Morbid obesity with body mass index (BMI) of 45.0 to 49.9 in adult (HCC) 06/18/2018 Progress Notes by PATRIZIA Chaudhry-C2 Sign when Signing Visit Hemoglobin A1C AdultBMI 50.0-59.9 kg/sq m ([facility]) - Hemoglobin A1C NO LONGER CURRENT Paroxysmal atrial fibrillation ([facility]) Pulmonary embolism on right ([facility]) 12/26/2014 CT for PE 11/23/14: Nonocclusive pulmonary [...] by Ronaldo Giraldo MD at [facility] [place] (2-D COMPLETE) 12/25/2014 EF 64%, RV dilated/hypokinetic ECHO (2-D COMPLETE) 01/07/2015 EF 50%, moderate wall motion ab (septal/inferior wall) EGD, FLEXIBLE, DIAGNOSTIC 05/27/2021 mild-mod inflammation / [facility] EGD, FLEXIBLE, DIAGNOSTIC 09/05/2021 sm hiatal hernia / [facility] EMG 2 EXTREMITY 02/07/2015 L5-S1 radiculopathy INFORMATION [...] of Onset Heart attack Father 62 fatal NC Heart disease Father Arthritis Sister Tianna Cancer [...] Stability Do you currently live in a fdc or have no steady place to sleep [...] Review of Systems Constitutional: Positive for activity change. Negative for appetite change, chills, diaphoresis, fatigue, fever and unexpected weight change. Cardiovascular: Negative for leg swelling. Musculoskeletal: Positive for arthralgias (lt knee, leg pain), back pain, neck pain and neck stiffness. Negative for joint swelling. Neurological: Positive for numbness. Negative for dizziness, light-headedness and headaches. Psychiatric/Behavioral: Positive for sleep disturbance. Negative for agitation and behavioral problems. Objective Wt (!) 308 lb (139.7 kg) | BMI 54.56 kg/m² | BSA 2.49 m² Physical Exam Constitutional: General: She is not in acute distress. Appearance: Normal appearance. She is obese. She is not ill-appearing, toxic- appearing or diaphoretic. HENT: Head: Normocephalic and atraumatic. Nose: Nose normal. Eyes: Extraocular Movements: Extraocular movements intact. Musculoskeletal: General: Tenderness present. Neurological: Mental Status: She is alert and oriented to person, place, and time. Psychiatric: Behavior: Behavior normal. ASSESSMENT/PLAN: Pain of left lower leg (Primary) - VASC DUPLEX VENOUS LE UNILAT Left knee pain, unspecified chronicity - XR KNEE 4 OR MORE VIEWS Chronic bilateral low back pain with bilateral sciatica Paroxysmal A-fib (HCC) Dyslipidemia, goal LDL below 130 Body mass index (BMI) of 50.0 to 59.9 in adult (HCC) Check-out note: Venous doppler and xrays ( neck, shoulder, knee ) all together on same day F/u doppler and xrays Cont current meds Diet change Naveed Peters MD documented in this encounter Plan of Treatment Upcoming Encounters Date Type Department Care Team (Latest Contact Info) Description 04/26/2024 3:30 PM EDT Office Visit Cardiology, [facility] [address] [place] [address] Yulia Almonte CRNP [address] [place] [address] 05/05/2024 3:30 PM EDT Imaging Radiology [facility] 1st [facility] [address] [place] [phone] 07/07/2024 10:25 AM EDT Hospital Encounter OR [facility], Operating Room, [facility] - 4th Floor [address] [place] [address] Jong Myers, DO [address] [place] [address] 07/07/2024 10:25 AM EDT - 07/07/2024 11:06 AM EDT Surgery OR [facility], Operating Room, [facility] - 4th Floor [address] [place] [address] Jong Myers, DO [address] [place] [address] COLONOSCOPY FLEXIBLE PROXIMAL DIAGNOSTIC Scheduled Orders Name Type Priority Associated Diagnoses Orde r Schedule VASC DUPLEX VENOUS LE UNILAT Medical Imaging Routine Pain of left lower leg Ordered: 04/15/2024 XR KNEE 4 OR MORE VIEWS Medical Imaging Routine Left knee pain, unspecified chronicity Ordered: 04/15/2024 Scheduled Procedures Name Priority Associated Diagnoses Date/Ti [...] DXA Scan 12/20/2022 12/21/2015 Mammogram 04/23/2023 04/22/2022, 030 08/2022, 11/08/2020, Additional history exists COVID-19 Vaccine [...] failure and stage 3a chronic kidney disease ([facility]) Tachy-jess syndrome ([facility]) Sinoatrial node dysfunction Cardiac pacemaker in situ Personal history of pulmonary embolism Chronic low back pain, unspecified back pain laterality, unspecified whether sciatica present Dysfunction of both eustachian tubes Dysfunction of Eustachian tube Obesity, morbid (more than 100 lbs over ideal weight or BMI > 40) ([facility]) Morbid obesity Chronic bilateral low back pain with bilateral sciatica- Primary Cardiac pacemaker in situ Hypertensive heart and kidney disease with chronic diastolic congestive heart failure and stage 3a chronic kidney disease ([facility]) Paroxysmal A-fib ([facility]) Atrial fibrillation Hypothyroidism, unspecified type Gastroesophageal reflux disease without esophagitis Esophageal reflux Major depressive disorder, recurrent, moderate ([facility]) Major depressive disorder, recurrent episode, moderate Paroxysmal A-fib ([facility])- Primary Atrial fibrillation Major depressive disorder, recurrent, moderate ([facility]) Major depressive disorder, recurrent episode, moderate PAF (paroxysmal atrial fibrillation) ([facility]) Atrial fibrillation Essential (primary) hypertension Unspecified essential hypertension Coronary artery disease due to calcified coronary lesion Adult BMI 50.0-59.9 kg/sq m ([facility]) Body Mass Index 50.0-59.9, adult Pulmonary embolism [...] in adult, unspecified whether serious comorbidity present ([facility]) Chronic kidney disease (CKD), stage II (mild) Chronic kidney disease, Stage II (mild) Pain of left lower leg- Primary Pain in limb Left knee pain, unspecified chronicity Chronic bilateral low back pain with bilateral sciatica Paroxysmal A-fib (HCC) Atrial fibrillation Dyslipidemia, goal LDL below 130 Other and unspecified hyperlipidemia Body mass index (BMI) of 50.0 to [...] Agents on File Name Relationship [facility] Drew Banerjee Adult Child First Alternate Health Care Agent Care Teams Head Up Operator Helper Relationship Specialty Start Date End Date Naveed Peters MD [address] [place] [address] PCP - General Internal Medicine 12/15/23 documented as of this encounter"
--- OUTSIDE RECORDS SUMMARY | 2024-06-16 20:31 | External Medical Summary | Summary of Care ---
Author Name Unknown Organization [facility] Address [address] [place] [address] Phone [phone] Care Team Providers Care Steward/Stewardess Dining Room Name Role Phone Naveed Peters MD Primary Care Provider [phone] Encounter Details Date Type Department Care Team (Late st Contact Info) Description [facility] [address] [place] [address] Naveed Peters MD [address] [facility] [place] [address] Allergies Active Allergy Reactions Criticality Noted [...] calcified coronary lesion,Cardiac pacemaker in situ,Paroxysmal A-fib ([facility]),Stress-ind uced cardiomyopathy,O ld [place] (myocardial infarction),JALEN on CPAP,Hypertensiv e heart and kidney disease with chronic diastolic congestive heart failure and stage 2 chronic kidney disease ([facility]) Inject 0.5 mg under the skin once [...] (01/05/2015): Statin stopped during 01/01/15 hospitalization at [facility] due to elevated LFTs Assessment [...] mRNA, LNP-s, No Pre serve, 2-Dose Series (Snaptee) 02/05/2021 COVID-19, MRNA-LNP, PF, 30 M CG/0.3 mL, 12 YRS AND ABOVE, IM (Pili Pop-Comirnaty) 01/26/2023 Pneumococcal Conjugate Vacc, 13 Valent (Prevnar) 01/16/2016 Pneumococcal Conjugate Vacci ne, 20-valent ([id number]) 10/09/2021 Pneumococcal Polysaccharide PPV23 (Pneumovax) 12/21/2014 Season [...] No 12/07/2023 Does the household have a [facility] source [facility] income? (Household - for [...] Montano CPhT - 03/29/2024 12:55 PM EST [facility] advising dose in sig is not able to be reached with Wegovy 0.25. Please verify directions and send new rx to [facility]. Thanks, Sarah Montano CPhT, Tech II [facility] ([facility]) (formerly Telepharmacy) [address] [place] [address] documented in this encounter Plan of Treatment Upcoming Encounters Date Type Department Care Team (Latest Contact Info) Description 04/26/2024 3:30 PM EDT Office Visit Cardiology, [facility] [address] [place] [address] Yulia Almonte CRNP [address] [place] [address] 05/05/2024 3:30 PM EDT Imaging Radiology [facility] [address]st [facility] [place] [address] [place] [phone] 07/07/2024 11:07 AM EDT Hospital Encounter OR [facility], Operating Room, [facility] - 4th Floor [address] [place] [address] Jong Myers, DO [address] [place] [address] 07/07/2024 11:07 AM EDT - 07/07/2024 11:48 AM EDT Surgery OR [facility], Operating Room, [facility] - 4th Floor [address] [place] [address] Jong Myers, DO [address] [place] [address] COLONOSCOPY FLEXIBLE PROXIMAL DIAGNOSTIC Scheduled Procedures Name [...] File Name Relationship Healthcare [facility] Communication Drew Banerjee Adult Child First Alternate Health Care Agent Care Teams Steward/Stewardess Dining Room Relationship Specialty Start Date End Date Naveed Peters MD [address] [place] [address] PCP - General Internal Medicine 12/15/23 documented as of this encounter
--- OUTSIDE RECORDS SUMMARY | 2024-06-16 20:31 | External Medical Summary | Summary of Care ---
Author Name Unknown Organization [facility] Address [address] [place] [place] [address] Phone [phone] Care Team Providers Care Building Surveyor Name Role Phone Naveed Peters MD Primary Care Provider [phone] Reason for Visit * Reason Onset Date Comments Medication Refill 04/03/2024 Encounter Details Date Type Department Care Team (Late st Contact Info) Description 04/03/2024 Refill [facility] [address] [facility] [place] [address] Naveed Peters MD [address] [place] [address] Chronic right-sided low back pain with [...] Active Wegovy 0.25 MG/0.5ML Subcutaneous Solution Auto-injector (Semaglutide-[facility] [place] [facility])Indic ations:Class 3 obesity with alveolar hypoventilation, serious comorbidity, and body mass index (BMI) of 50.0 to 59.9 in adult ([facility]),Coronary artery disease due to calcified coronary lesion,Cardiac pacemaker in situ,Paroxysmal A-fib ([facility]),Stress-ind uced cardiomyopathy,O ld [place] (myocardial infarction),JALEN on CPAP,Hypertensiv e heart and kidney disease with chronic diastolic congestive heart failure and stage 2 chronic kidney disease ([facility]) Inject 0.5 mg under the skin once a week. 6 mL 1 03/29/19 25 Active Metoprolol Succinate ER 25 MG Oral Tablet Extended Release 24 Hour (toPROL XL)Indications:P AF (paroxysmal atrial fibrillation) ([facility]) TAKE 1 TABLET BY MOUTH IN [...] Pain, Severe. 90 Tablet 04/05/19 25 Active oxyCODONE HCl 5 MG Oral Tablet (Oxy IR)Indications:C hronic right-sided low back pain with right-sided sciatica Take 1.5 Tablets by mouth 2 times a day as needed for Pain, Severe. 90 Tablet 03/08/19 25 025 Discontin ued(Refil l) documented as [...] respiratory events were associated with oxygen desaturations (lkever of 62 %).At a CPAP setting of [...] (01/05/2015): Statin stopped during 01/01/15 hospitalization at [facility] due to elevated LFTs Assessment & [...] Denies any recent migraines. Tachy-jess syndrome 02/02/2018 0203/ 023 Assessment & Plan (06/07/2021 12:19 PM [...] CG/0.3 mL, 12 YRS AND ABOVE, IM (PFIZER-Comirnat) 01/26/2023 Pneumococcal Conjugate Vacc, 13 Valent (Prevnar) 01/16/2016 Pneumococcal Conjugate Vacci ne, 20-valent ([id number]) 10/09/2021 Pneumococcal Polysaccharide PPV23 (Pneumovax) 12/21/2014 Season [...] Assessment Author No 11/21/2015 12:20 AM Nancy Ecueda RN * Are you blind or do [...] Telephone Encounter - Naveed Peters MD - 04/05/2024 7:40 AM ESTSigned Prescriptions: Disp Refills oxyCODONE HCl 5 MG Oral Tablet (Oxy IR) 90 Tab*0 Sig: Take 1.5 Tablets by mouth 2 times a day as needed for Pain, Severe. Authorizing Provider: NAVEED PETERS * Telephone Encounter - Evelyn Adams [facility] - 04/04/2024 3:25 PM ESTPending Prescriptions: Disp Refills oxyCODONE HCl 5 MG Oral Tablet (Oxy IR) 90 Tab*0 Sig: Take 1.5 Tablets by mouth 2 times a day as needed for Pain, Severe. * Telephone Encounter - Evelyn Adams [facility] - 04/04/2024 3:24 PM EST I have reviewed the patient’s controlled substance dispensing history in the Prescription Drug Monitoring Program in compliance with the [facility] regulations before prescribing a controlled substance. PDMP checked on 04/04/2024. Pending Prescriptions: Disp Refills oxyCODONE HCl 5 MG Oral Tablet (Oxy IR) 90 Tab*0 Sig: Take 1.5 Tablets by mouth 2 times a day as needed for Pain, Severe. Last Visit: Visit date not found (in office), 03/29/2024 (telemedicine) Next Visit: Visit date not found Date medication was last filled: Date medication is due for refill: 04/06/24 Pharmacy: [facility] [id number] [id number] IVAN ACHARYA Is this request for a controlled substance? [...] in Results Review. Please approve if appropriate. ThanksEvelyn PharmD Clinical Pharmacist [facility] ([facility]) [phone] 04/04/2024, 3:24 PM documented in this encounter Plan of Treatment Upcoming Encounters Date Type Department Care Team (Latest Contact Info) Description 04/26/2024 3:30 PM EDT Office Visit Cardiology, [facility] [address] [place] [address] Yulia Almonte CRNP [address] [employer] [place] [address] 05/05/2024 3:30 PM EDT Imaging Radiology [facility] [address] [facility] [address] [phone] 07/07/2024 11:07 AM EDT Hospital Encounter OR [facility], Operating Room, [facility] - 4th Floor [address] [place] [address] [address] Jong Myers DO [address] [place] [address] 07/07/2024 11:07 AM EDT - 07/07/2024 11:48 AM EDT Surgery OR [facility], Operating Room, [facility] - 4th Floor [address] [place] [address] [phone] Jong Myers, DO [address] [place] [address] COLONOSCOPY FLEXIBLE PROXIMAL DIAGNOSTIC Scheduled Procedures Name [...] failure and stage 3a chronic kidney disease ([facility]) Tachy-jess syndrome ([facility]) Sinoatrial node dysfunction Cardiac pacemaker in situ Personal history of pulmonary embolism Chronic low back pain, unspecified back pain laterality, unspecified whether sciatica present Dysfunction of both eustachian tubes Dysfunction of Eustachian tube Obesity, morbid (more than 100 lbs over ideal weight or BMI > 40) ([facility]) Morbid obesity Chronic bilateral low back pain with bilateral sciatica- Primary Cardiac pacemaker in situ Hypertensive heart and kidney disease with chronic diastolic congestive heart failure and stage 3a chronic kidney disease ([facility]) Paroxysmal A-fib ([facility]) Atrial fibrillation Hypothyroidism, unspecified type Gastroesophageal reflux disease without esophagitis Esophageal reflux Major depressive disorder, recurrent, moderate ([facility]) Major depressive disorder, recurrent episode, moderate Paroxysmal A-fib ([facility])- Primary Atrial fibrillation Major depressive disorder, recurrent, moderate ([facility]) Major depressive disorder, recurrent episode, moderate PAF (paroxysmal atrial fibrillation) ([facility]) Atrial fibrillation Essential (primary) hypertension Unspecified essential hypertension Coronary artery disease due to calcified coronary lesion Adult BMI 50.0-59.9 kg/sq m ([facility]) Body Mass Index 50.0-59.9, adult Pulmonary [...] in adult, unspecified whether serious comorbidity present ([facility]) Chronic kidney disease (CKD), stage II [...] Agents on File Name Relationship Healthcare Agent [facility] p Communication Drew Banerjee Adult Child First Alternate Health Care Agent Care Teams Building Surveyor Relationship Specialty Start Date End Date Naveed Peters MD [address] [place] [address] [place] [address] PCP - General Internal Medicine 12/15/23 documented as of this encounter
--- OUTSIDE RECORDS SUMMARY | 2024-06-16 20:32 | External Medical Summary | Summary of Care ---
Author Name Unknown Organization [facility] Address [address] [place] [address] Phone [phone] Care Team Providers Care Keysmith Name Role Phone Naveed Peters MD Primary Care Provider [phone] Encounter Details Date Type Department Care Team (Late st Contact Info) Description 03/10/2024 9:40 AM EST Telemedicine [facility] [address] [facility] [place] [phone] Naveed Peters MD [address] [place] [address] Class 3 obesity with alveolar hypoventilation, serious comorbidity, and body mass index (BMI) of 50.0 to 59.9 in adult ([facility])*; Coronary artery disease due to calcified coronary lesion; Cardiac pacemaker in situ; Paroxysmal A-fib ([facility]); Stress-induced cardiomyopathy; Old CT (myocardial infarction); JALEN on CPAP; 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 90 Tablet 03/08/19 25 Active Wegovy 0.25 MG/0.5ML Subcutaneous Solution Auto-injector (Semaglutide-We ight Management)Juhi cations:Class 3 obesity with alveolar hypoventilation , serious comorbidity, and body mass index (BMI) of 50.0 to 59.9 in adult (HCC),Coronary artery disease due to calcified coronary lesion,Cardiac pacemaker in situ,Paroxysmal A-fib (HCC),Stress-in duced cardiomyopathy, Old CT (myocardial infarction),JALEN on CPAP,Hypertensi ve heart and kidney disease with chronic diastolic congestive heart failure and stage 2 chronic kidney disease (HCC) Inject 0.25 mg under the skin once a week. 2 mL 1 03/10/19 25 Active Levothyroxine Sodium 75 MCG Oral Tablet (Levoxyl) Take 1 Tablet by mouth in the morning. (at least 30 min prior to breakfast or other meds). 90 Tablet 3 03/10/19 25 Active Cetirizine HCl 10 MG Oral Tablet (ZyrTEC) Take 1 Tablet by mouth in the morning. 90 Tablet 1 03/10/19 25 Active Levothyroxine Sodium 75 MCG Oral Tablet (Levoxyl) Take 1 Tablet by mouth in the morning. (at least 30 min prior to breakfast or other meds). 30 Tablet 11 06/24/19 24 2024 Discontinued(R efill) Wegovy 0.25 MG/0.5ML Subcutaneous Solution Auto-injector ([facility]) Inject 0.25 mg under the skin once a week. 2 mL 1 12/14/19 24 2024 Discontinued documented as of this encounter (statuses as of 03/10/2024) Active Problems Problem Noted Date Diagnosed Date [...] can see ENT. She voiced understanding. Old CT (myocardial infarction) 02/10/2018 Personal history of pulmonary [...] as of this encounter (statuses as of 03/10/2024) Resolved Problems Problem Noted Date Diagnosed Date [...] as of this encounter (statuses as of 03/10/2024) Immunizations Name Administration Dates Next Due COVID-19 mRNA, LNP-s, No Pre serve, 2-Dose Series ([employer]) 02/05/2021 COVID-19, MRNA-LNP, PF, 30 M CG/0.3 mL, 12 YRS AND ABOVE, IM (PFIZER-Comirnat) 01/26/2023 Pneumococcal Conjugate Vacc, 13 Valent (Prevnar) 01/16/2016 Pneumococcal Conjugate Vacci ne, 20-valent ([id number]) 10/09/2021 Pneumococcal Polysaccharide PPV23 (Pneumovax) 12/21/2014 Season [...] ages 0-17 years) Not on file 12/07/2023 Comments No Sex and Gender Information [...] Progress Notes * Naveed Peters MD - 03/10/2024 9:25 AM EST Subjective Barbara Banerjee is a 73 year old female. No chief complaint on file. HPI: Patient location: HOME. I was in a hospital or clinic location. After connecting through [employer],patient was verified with two unique identifiers. 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 Methods to assure confidentiality were taken. Patient acknowledged consent and understanding of pr ivacy and security of the Telemedicine visit. The patient agreed to participate. History of Present Illness The patient, with a history of back pain managed with oxycodone 7.5mg twice daily, reports no change in her condition. She recently received a new walker to aid mobility. She has been attempting to lose weight through diet and exercise, and has successfully lost 10 pounds. However, she has been unable to obtain Wegovy, a weight loss medication, despite her [employer] card stating it would cover the cost. She has known coronary artery disease, a pacemaker, paroxysmal AFib, cardiomyopathy, old CT, sleep apnea managed with CPAP, congestive heart failure, and chronic kidney disease. Taking medication as prescribed, see med list. No medication side effects noted. Advised patient tokeep healthy life style, regular exercise with good diet, rossi. low sodium diet. And also check BP at home too. Denies associated chest discomfort, chest heaviness, chest pressure, chest tightness, edema, palpitations and shortness of breath. The patient also reports chronic pain in her left leg, which she attributes to a lumbar fusion surgery performed in 2012. She has been managing the pain with oxycodone. Recently, she has been experiencing pain in her left ear, which she has been attempting to manage with a nasal spray. The patient is also on medication for hypothyroidism, and has not had blood work done to monitor her thyroid function since last August. She has a mammogram scheduled for April and a colonoscopy scheduled for June. PMH: Patient Active Problem List Diagnosis Gastroesophageal reflux disease without esophagitis Coronary artery disease due to calcified coronary lesion Paroxysmal A-fib (HCC) Dyslipidemia, goal LDL below 130 Vitamin B12 deficiency Lumbosacral radiculopathy JALEN on CPAP Umbilical hernia Hernia, hiatal Major depressive disorder, recurrent, moderate (HCC) Benign paroxysmal positional vertigo of right ear Stress-induced cardiomyopathy Personal history of pulmonary embolism Old CT (myocardial infarction) Hypothyroidism Cardiac pacemaker in situ [...] stage 2 chronic kidney disease ([facility]) Body mass index (BMI) of 50.0 to 59.9 in adult ([facility]) Degeneration of intervertebral disc of lumbar region with discogenic back pain and lower extremity pain S/P lumbar fusion Current Outpatient Medications Medication Sig Dispense Refill Wegovy 0.25 MG/0.5ML Subcutaneous Solution Auto-injector (Semaglutide-Weight Management) Inject 0.25 mg under the skin once a week. 2 mL 1 Levothyroxine Sodium 75 MCG Oral Tablet (Levoxyl) Take 1 Tablet by mouth in the morning. (at least 30 min prior to breakfast or other meds). 90 Tablet 3 Cetirizine HCl 10 MG Oral Tablet (ZyrTEC) Take 1 Tablet by mouth in the morning. 90 Tablet 1 Aspirin 81 MG Tablet Take 1 [...] as needed for Pain,Severe. 90 Tablet 0 No current facility-administered medications for this visit. Past Medical History: Diagnosis Date Benign neoplasm of colon 07/2011 hyperplastic polyp repeat in 10 yrs Carpal tunnel syndrome Diaphragmatic hernia without mention of obstruction or gangrene Hiatal Hernia Headache(784.0) Headache NOS Hypertension Microscopic hematuria 03/15/2015 Cysto 05/16/15 normal Morbid obesity with body mass index (BMI) of 45.0 to 49.9 in adult ([facility]) 06/18/2018 Progress Notes by PATRIZIA Chaudhry-03/28/2022 Sign when Signing Visit Hemoglobin A1C AdultBMI 50.0-59.9 kg/sq m ([facility]) - Hemoglobin A1C NO LONGER CURRENT Paroxysmal atrial fibrillation ([facility]) Pulmonary embolism on right ([facility]) 12/26/2014 CT for PE 11/23/14: Nonocclusive [...] by Ronaldo Giraldo MD at [facility] ECHO (2-D COMPLETE) 12/25/2014 EF 64%, RV dilated/hypokinetic ECHO (2-D COMPLETE) 01/07/2015 EF 50%, moderate wall motion ab (septal/inferior wall) EGD, FLEXIBLE, DIAGNOSTIC 05/27/2021 mild-mod inflammation / [facility] EGD, FLEXIBLE, DIAGNOSTIC 09/05/2021 sm hiatal hernia / [facility] EMG 2 EXTREMITY 02/07/2015 L5-S1 radiculopathy INFORMATION [...] of Onset Heart attack Father [address] Heart disease Father Arthritis Sister Tianna Cancer [...] Insecurity: No Food Insecurity (12/07/2023) Food Insecurity Do you need food for this week? (Adult - for ages 18 years and over): No Are you able to get enough food for your family? (Household - for ages 0-17 years): Not on file Does your family need food this week? (Household - for ages 0-17 years): Not on file Do you always have enough food for your family? (Household - for ages 0-17 years): Not on file Transportation Needs: No Transportation Needs (12/07/2023) Transportation [...] Stability Do you currently live in a fpc or have no steady place to sleep [...] file Review of Systems Constitutional: Positive for fatigue. Negative for activity change, appetite change, chills, diaphoresis, fever and unexpected weight change. HENT: Positive for congestion, ear pain and sinus pressure. Respiratory: Negative for cough, chest tightness, shortness of breath and wheezing. Cardiovascular: Positive for leg swelling (mild leg swelling, chronic). Negative for chest pain andpalpitations. Gastrointestinal: Negative for abdominal distention and abdominal pain. Musculoskeletal: Positive for arthralgias, back pain and gait problem. Allergic/Immunologic: Positive for environmental allergies. Neurological: Positive for headaches. Psychiatric/Behavioral: Positive for dysphoric mood (mild depression). Negative for agitation and behavioral problems. Objective There were no vitals taken for this visit. Physical Exam Constitutional: General: She is not in acute distress. Appearance: Normal appearance. She is obese. She is not ill-appearing, toxic- appearing or diaphoretic. HENT: Head: Normocephalic and atraumatic. Nose: Nose normal. Eyes: Extraocular Movements: Extraocular movements intact. Pulmonary: Effort: Pulmonary effort is normal. No respiratory distress. Neurological: Mental Status: She is alert and oriented to person, place, and time. Psychiatric: Behavior: Behavior normal. Comments: Mild depression ASSESSMENT/PLAN: Class 3 obesity with alveolar hypoventilation, serious comorbidity, and body mass index (BMI) of 50.0 to 59.9 in adult (HCC) (Primary) - CBC WITH WBC DIFFERENTIAL; Future; Expected date: 03/10/2024 - BASIC METABOLIC PANEL; Future; Expected date: 03/10/2024 - Wegovy 0.25 MG/0.5ML Subcutaneous Solution Auto-injector (Semaglutide-Weight Management); Inject 0.25 mg under the skin once a week. Coronary artery disease due to calcified coronary lesion - CBC WITH WBC DIFFERENTIAL; Future; Expected date: 03/10/2024 - BASIC METABOLIC PANEL; Future; Expected date: 03/10/2024 - Wegovy 0.25 MG/0.5ML Subcutaneous Solution Auto-injector (Semaglutide-Weight Management); Inject 0.25 mg under the skin once a week. Cardiac pacemaker in situ - Wegovy 0.25 MG/0.5ML Subcutaneous Solution Auto-injector (Semaglutide-Weight Management); Inject 0.25 mg under the skin once a week. Paroxysmal A-fib (HCC) - Wegovy 0.25 MG/0.5ML Subcutaneous Solution Auto-injector (Semaglutide-Weight Management); Inject 0.25 mg under the skin once a week. Stress-induced cardiomyopathy - Wegovy 0.25 MG/0.5ML Subcutaneous Solution Auto-injector (Semaglutide-Weight Management); Inject 0.25 mg under the skin once a week. Old CT (myocardial infarction) - Wegovy 0.25 MG/0.5ML Subcutaneous Solution Auto-injector (Semaglutide-Weight Management); Inject 0.25 mg under the skin once a week. JAELN on CPAP - Wegovy 0.25 MG/0.5ML Subcutaneous Solution Auto-injector (Semaglutide-Weight Management); Inject 0.25 mg under the skin once a week. 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 Hypothyroidism, unspecified type - TSH WITH FREE T4 IF INDICATED; Future; Expected date: 03/10/2024 Essential (primary) hypertension Degeneration of intervertebral disc of lumbar region with discogenic back pain and lower extremity pain S/P lumbar fusion Major depressive disorder, recurrent, moderate (HCC) Otalgia of both ears Other orders - Levothyroxine Sodium 75 MCG Oral Tablet (Levoxyl); Take 1 Tablet by mouth in the morning. (at least 30 min prior to breakfast or other meds). - Cetirizine HCl 10 MG Oral Tablet (ZyrTEC); Take 1 Tablet by mouth in the morning. Follow Up: Return in about 6 months (around 09/07/2024) for Clinic Visit, Video to Clinic. | For: Clinic Visit, Video to Clinic | Check-out note: Labs for mobile lab Assessment & Plan Chronic Back Pain Stable on Oxycodone 7.5mg twice daily. -Continue current regimen. Weight Management Patient has lost 10 pounds through diet and exercise. Previous attempts to prescribe Wegovy unsuccessful due to insurance restrictions. -Resubmit prescription for Wegovy with additional diagnostic codes to attempt approval. -Continue diet and exercise regimen. Hypothyroidism Last thyroid function test was in August 2023. -Order thyroid function test. -Continue current thyroid medication, refill for 90 days. Chronic Sinusitis Left ear pain likely secondary to chronic sinus congestion. -Prescribe Zyrtec and recommend use of neti pot or saline spray for sinus cleansing. -Continue use of nasal spray. Lower Extremity Edema Some days worse than others, managed with Lasix on Thursday, Thursday, and . -Continue current regimen. General Health Maintenance -Mammogram scheduled for April 2024. -Colonoscopy scheduled for June 2024. -Plan to see patient in person in summer 2024 for annual in-person visit. Naveed Peters MD documented in this encounter Plan of Treatment Upcoming Encounters Date Type Department Care Team (Latest Contact Info) Description 04/26/2024 3:30 PM EDT Office Visit Cardiology, [facility] [address] [place] [address] Yulia Almonte CRNP [address] [place] [address] 05/05/2024 3:30 PM EDT Imaging Radiology [facility] [facility] [address] [place] [phone] 07/07/2024 11:04 AM EDT Hospital Encounter OR [facility], Operating Room, [facility] - 4th Floor [address] [place] [phone] Jong Myers, [address] [place] [id number] 07/07/2024 11:04 AM EDT - 07/07/2024 11:45 AM EDT Surgery OR [facility], Operating Room, [facility] - 4th Floor [address] [place] [phone] Jong Myers, DO [address] [place] [address] COLONOSCOPY FLEXIBLE PROXIMAL DIAGNOSTIC Scheduled Orders Name Type Priority Associated Diagnoses Orde r Schedule TSH WITH FREE T4 IF INDICATED Lab Routine Hypothyroidism, unspecified type Expected: 03/10/2024 (Approximate), Expires: 03/10/2025 CBC WITH WBC DIFFERENTIAL Lab Routine Class 3 obesity with alveolar hypoventilation, serious comorbidity, and body mass index (BMI) of 50.0 to 59.9 in adult (HCC) Coronary artery disease due to calcified coronary lesion Expected: 03/10/2024 (Approximate), Expires: 03/10/2025 BASIC METABOLIC PANEL Lab Routine Class 3 obesity with alveolar hypoventilation, serious comorbidity, and body mass index (BMI) of 50.0 to 59.9 in adult (HCC) Coronary artery disease due to calcified coronary lesion Expected: 03/10/2024 (Approximate), Expires: 03/10/2025 Scheduled Procedures Name Priority Associated Diagnoses Date/Ti me COLONOSCOPY FLEXIBLE PROXIMAL DIAGNOSTIC Recall Personal history of colonic polyps 07/07/2024 11:04 AM EDT Health Maintenance Due Date Last Done Comments Cologuard 10/02/1995 Fecal Occult Blood Test 10/02/1995 Sigmoidoscopy 10/02/1995 Adult Wellness Visit 2016 Colonoscopy 07/17/2021 07/18/2011, 07/18/2011 Colorectal Cancer Screening 07/17/2021 DTap/Tdap Vaccines (2 - Td or Tdap) 11/26/2021 11/27/2011 DXA Scan 12/20/2022 12/21/2015 Mammogram 04/23/2023 04/22/2022, 0308/2022, 11/08/2020, Additional history exists COVID-19 Vaccine ( season) 2023 01/26/2023, 02/05/2021, 07/12/2020, Additional history exists TSH 09/02/2024 09/03/2023, 03/20, 11/11/2022, Additional history exists Depression Monitoring 12/06/2024 12/07/2023 GFR 12/06/2024 12/07/2023, 03/20, 11/11/2022, Additional history exists Albumin/Creatinine Ratio 12/06/2026 12/07/2023 [...] depressive disorder, recurrent episode, moderate Paroxysmal A-fib ([facility])- Primary Atrial fibrillation Major depressive disorder, recurrent, moderate (HCC) Major depressive disorder, recurrent episode, moderate PAF (paroxysmal atrial fibrillation) ([facility]) Atrial fibrillation Essential (primary) hypertension Unspecified essential hypertension Coronary artery disease due to calcified coronary lesion Adult BMI 50.0-59.9 kg/sq m ([facility]) Body Mass Index 50.0-59.9, adult Pulmonary [...] (mild) Chronic kidney disease, Stage II (mild) Class 3 obesity with alveolar hypoventilation, serious comorbidity, and body mass index (BMI) of 50.0 to 59.9 in adult ([facility])- Primary Coronary artery disease due to calcified coronary lesion Cardiac pacemaker in situ Paroxysmal A-fib ([facility]) Atrial fibrillation Stress-induced cardiomyopathy Takotsubo syndrome Old CT (myocardial infarction) Old myocardial infarction JALEN on CPAP Obstructive sleep apnea (adult) (pediatric) 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 ([facility]) Hypothyroidism, unspecified type Essential (primary) hypertension Unspecified essential hypertension Degeneration of intervertebral disc of lumbar region with discogenic back pain and lower extremity pain S/P lumbar fusion Arthrodesis status Major depressive disorder, recurrent, moderate (HCC) Major depressive disorder, recurrent episode, moderate Otalgia of both ears Otalgia, unspecified Personal history of colonic polyps documented in [...] on File Name Relationship [facility] Drew Banerjee Adult Child First Alternate Health Care Agent Care Teams Keysmith Relationship Specialty Start Date End Date Naveed Peters MD [address] [place] [address] PCP - General Internal Medicine 12/15/23 documented as of this encounter"
--- OUTSIDE RECORDS SUMMARY | 2024-06-16 20:32 | External Medical Summary | Summary of Care ---
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 90 Tablet 3 4 Active Levothyroxine Sodium 75 MCG Oral Tablet (Levoxyl) Take 1 Tablet by mouth in the morning. (at least 30 min prior to breakfast or other meds). 30 Tablet 11 4 Active Eliquis 5 MG Oral Tablet (Apixaban) Take 1 tablet by mouth twice daily 180 Tablet 1 4 Active Vitamin B-12 500 MCG Oral Tablet (vitamin B-12) Take 1 Tablet by mouth in the morning. Active Wegovy 0.25 MG/0.5ML Subcutaneous Solution Auto-injector ([facility]) Inject 0.25 mg under the skin once a week. 2 mL 1 4 Active oxyCODONE HCl 5 MG Oral Tablet (Oxy IR)Indications:C hronic right-sided low back pain with right-sided sciatica Take 1.5 Tablets by mouth 2 times a day as needed for Pain, Severe. 90 Tablet 4 Active Losartan Potassium 100 MG Oral Tablet [...] Thursday and 36 Tablet 1 5 Active documented as of this encounter (statuses as of 03/07/2024) Active Problems Problem Noted Date Diagnosed Date Hypertensive kidney disease 04/02/2023 Hypertensive heart and [...] can see ENT. She voiced understanding. Old [place] (myocardial infarction) 02/10/2018 Personal history of pulmonary [...] (01/05/2015): Statin stopped during 01/01/15 hospitalization at [facility] due to elevated LFTs Assessment & [...] as of this encounter (statuses as of 03/07/2024) Resolved Problems Problem Noted Date Diagnosed Date [...] as of this encounter (statuses as of 03/07/2024) Immunizations Name Administration Dates Next Due COVID-19 mRNA, LNP-s, No Pre serve, 2-Dose Series ([employer]) 02/05/2021 COVID-19, MRNA-LNP, PF, 30 M CG/0.3 mL, 12 YRS AND ABOVE, IM (PFIZER-Comirnat) 01/26/2023 Pneumococcal Conjugate Vacc, 13 Valent (Prevnar) 01/16/2016 Pneumococcal Conjugate Vacci ne, 20-valent ([id number]) 10/09/2021 Pneumococcal Polysaccharide PPV23 (Pneumovax) 12/21/2014 Season [...] Assessment Author No 11/21/2015 12:20 AM Nancy uEceda RN * Do you have difficulty dressing [...] Nancy Euceda RN documented in this encounter Plan of Treatment Upcoming Encounters Date Type Department Care Team (Latest Contact Info) Description 03/10/2024 9:40 AM EST Telemedicine [facility], [place] [address] [place] [phone] Naveed Peters MD [address] [place] [address] 04/26/2024 3:30 PM EDT Office Visit Cardiology, [facility] [address] [place] [address] Yulia Almonte, PHYSICIAN'S ASSISTANT [address] [place] [address] 05/05/2024 3:30 PM EDT Imaging Radiology [facility]st [facility] [address] [place] [phone] 07/07/2024 11:00 AM EDT Hospital Encounter OR [facility], Operating Room, [facility] - 4th Floor [address] [place] [phone] Jong Myers, DO [address] [place] [address] 07/07/2024 11:00 AM EDT - 07/07/2024 11:41 AM EDT Surgery OR [facility], Operating Room, [facility] Floor [address] [place] [phone] Jong Myers, DO [address] [place] [address] COLONOSCOPY FLEXIBLE PROXIMAL DIAGNOSTIC Scheduled Procedures Name Priority Associated Diagnoses Date/Ti me COLONOSCOPY FLEXIBLE PROXIMAL DIAGNOSTIC Recall Personal history of colonic polyps 07/07/2024 11:00 AM EDT Health Maintenance Due Date Last [...] Depression Monitoring 12/06/2024 12/07/2023 GFR 12/06/2024 12/07/2023, 022 , 11/11/2022, Additional history exists Albumin/Creatinine Ratio 12/06/2026 [...] Agents on File Name Relationship Healthcare Agent Relationsfl p Communication Drew Banerjee Adult Child First Alternate Health Care Agent Care Teams Continuous 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
--- OUTSIDE RECORDS SUMMARY | 2024-06-16 20:32 | External Medical Summary | Summary of Care ---
Author Name Unknown Organization [facility] Address [address] [place] [address] Phone [phone] Care Team Providers Care Abstract Manager Name Role Phone Naveed Peters MD Primary Care Provider [phone] Reason for Visit * Reason Onset Date Comments Pre Cert/Prior Auth 03/11/2024 Wegovy Encounter Details Date Type Department Care Team (Late st Contact Info) Description 03/11/2024 Telephone [facility] [address] [facility] [place] [address] Naveed Peters MD [address] [place] [address] Pre Cert/Prior Auth (Wegovy) Allergies Active Allergy Reactions Criticality Noted Date Comments Celecoxib Hives 12/27/1999 Latex Rash 07/11/2011 Lisinopril Cough 05/29/2014 documented as of this encounter (statuses as of 03/11/2024) Medications Aspirin 81 MG Tablet Take 1 [...] Pain, Severe. 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 2 mL 1 5 Active Levothyroxine Sodium 75 MCG Oral Tablet (Levoxyl) Take 1 Tablet by mouth in the morning. (at least 30 min prior to breakfast or other meds). 90 Tablet 3 5 Active Cetirizine HCl 10 MG Oral Tablet (ZyrTEC) Take 1 Tablet by mouth in the morning. 90 Tablet 1 5 Active documented as of this encounter (statuses as of 03/11/2024) Active Problems Problem Noted Date Diagnosed Date [...] can see ENT. She voiced understanding. Old [place] (myocardial infarction) 02/10/2018 Personal history of pulmonary [...] stopped during 01/01/15 hospitalization at [facility] due to elevated LFTs Assessment & [...] as of this encounter (statuses as of 03/11/2024) Resolved Problems Problem Noted Date Diagnosed Date [...] as of this encounter (statuses as of 03/11/2024) Immunizations Name Administration Dates Next Due COVID-19 mRNA, LNP-s, No Pre serve, 2-Dose Series (Pfizer) 02/05/2021 COVID-19, MRNA-LNP, PF, 30 M CG/0.3 mL, 12 YRS AND ABOVE, IM (PFIZER-Comirnat) 01/26/2023 Pneumococcal Conjugate Vacc, 13 Valent (Prevnar) 01/16/2016 Pneumococcal Conjugate Vacci ne, 20-valent ([id number]) 10/09/2021 Pneumococcal Polysaccharide PPV23 (Pneumovax) 12/21/2014 Season [...] encounter Miscellaneous Notes * Telephone Encounter - Sheree Melchor LPN - 03/11/2024 1:53 PM EST Prior auth started with Prompt[employer] for Wegovy EOC # [id number] documented in this encounter Plan of Treatment Upcoming Encounters Date Type Department Care Team (Latest Contact Info) Description 04/26/2024 3:30 PM EDT Office Visit Cardiology, [facility] [address] [place] [address] Yulia Almonte CRNP [address] [place] [address] 05/05/2024 3:30 PM EDT Imaging Radiology [facility] 1st [facility] [address] [phone] 07/07/2024 11:04 AM EDT Hospital Encounter OR [facility], Operating Room, [facility] - 4th Floor [address] [place] [phone] Jong Myers, [address] [place] [address] 07/07/2024 11:04 AM EDT - 07/07/2024 11:45 AM EDT Surgery OR [facility], Operating Room, [facility] - 4th Floor [address] [place] [address] Jong Myers, [address] [place] [address] COLONOSCOPY FLEXIBLE PROXIMAL DIAGNOSTIC Scheduled Procedures Name [...] First Alternate Health Care Agent Care Teams Abstract Manager Relationship Specialty Start Date End Date Naveed Peters MD [address] [place] [address] PCP - General Internal Medicine 12/15/23 documented as of this encounter
--- OUTSIDE RECORDS SUMMARY | 2024-06-16 20:32 | External Medical Summary ---
Author Name Unknown Address Unknown Organization [id number]:LABORATORY [facility] [address] [place] [address] Laboratory Report Ordering Provider Test Date Status TOYA BROWN 03/29/2024 08:43:00 Final Observation Date Value Abnormality Reference (Units ) Status BUN 03/29/2024 08:43:00 12 6-20 (mg/dL) Final Creatinine 03/29/2024 08:43:00 1.1 Above high normal 0.5-1.0 (mg/dL) Final Glomerular filtration rate/1.73 sq M.predicted [Volume Rate/Area] in Serum, Plasma or Blood by Creatinine-based formula (CKD-EPI) 03/29/2024 08:43:00 53 Below low normal >=60 (mL/min) Final eGFR is calculated based on the CKD-EPI 2020 equation. Sodium 03/29/2024 08:43:00 144 135-146 (m mol/L) Final Potassium 03/29/2024 08:43:00 4.1 3.5-5.1 (m mol/L) Final Cl 03/29/2024 08:43:00 105 98-107 (mm ol/L) Final CO2 03/29/2024 08:43:00 30 22-32 (mmo l/L) Final Anion gap 03/29/2024 08:43:00 9 7-15 (mmol /L) Final Glucose 03/29/2024 08:43:00 120 70-120 (mg /dL) Final Calcium 03/29/2024 08:43:00 8.9 8.4-10.2 ( mg/dL) Final Performing Location [facility] [place] [address]
--- OUTSIDE RECORDS SUMMARY | 2024-06-16 20:32 | External Medical Summary | Summary of Care ---
Author Name Unknown Organization [facility] Address [address] [place] [address] Phone [phone] Care Team Providers Care Tafe Teacher Name Role Phone Naveed Peters MD Primary Care Provider [phone] Reason for Visit * Reason Onset Date Comments Form Questions 12/07/2023 Encounter Details Date Type Department Care Team (Late st Contact Info) Description 12/07/2023 Telephone [facility] DEPT CLOSED - 02/04/24 [address] [facility] [place] [address] Irish Richard, DO [address] [facility] [place] [address] Form Questions Allergies Active Allergy Reactions Criticality Noted Date [...] Tablet by mouth in the morning. Active documented as of this encounter (statuses [...] (01/05/2015): Statin stopped during 01/01/15 hospitalization at [facility] due to elevated LFTs Assessment [...] (Prevnar) 01/16/2016 Pneumococcal Conjugate Vacci ne, 20-valent ([id number]) 10/09/2021 Pneumococcal Polysaccharide PPV23 (Pneumovax) 12/21/2014 Season [...] encounter Miscellaneous Notes * Telephone Encounter - Fela Jain CPhT - 12/07/2023 3:15 PM EDT [facility] calling to ask when patients last office visit was and when the next office visit is. Tisha was also asking diagnosis code for oxycodone Thank you, Fela Jain CPhT Circulation Crew Leader III [facility] [address] [place] [address], [address] [place] [address] [phone] documented in this encounter Plan of Treatment Upcoming Encounters Date Type Department Care Team (Latest Contact Info) Description 03/10/2024 9:40 AM EST Telemedicine [facility] Kulwant Anton [address] [place] [phone] Naveed Peters MD [address] [place] [address] 04/26/2024 3:30 PM EDT Office Visit Cardiology, [facility] [address] [place] [address] Yulia Almonte CRNP [address] [place] [address] 05/05/2024 3:30 PM EDT Imaging Radiology [facility] 1st [facility] [address] [place] [phone] 07/07/2024 11:00 AM EDT Hospital Encounter OR [facility], Operating Room, [facility] - 4th Floor [address] [place] [phone] Jong Myers, DO [address] [place] [address] 07/07/2024 11:00 AM EDT - 07/07/2024 11:41 AM EDT Surgery OR [facility], Operating Room, [facility] - 4th Floor [address] [place] [phone] Jong Myers, DO [address] [place] [address] COLONOSCOPY FLEXIBLE PROXIMAL DIAGNOSTIC Scheduled Procedures Name [...] Depression Monitoring 12/06/2024 12/07/2023 GFR 12/06/2024 12/07/2023, 02, 11/11/2022, Additional history exists Albumin/Creatinine Ratio 12/06/2026 [...] Agents on File Name Relationship Healthcare Agent [facility] p Communication Drew Banerjee Adult Child First Alternate Health Care Agent Care Teams Tafe Teacher Relationship Specialty Start Date End Date Naveed Peters MD [address] [place] [address] PCP - General Internal Medicine 12/15/23 documented as of this encounter
--- OUTSIDE RECORDS SUMMARY | 2024-06-16 20:32 | External Medical Summary | Summary of Care ---
Author Name Unknown Organization [facility] Address [address] [place] [address] Phone [phone] Care Team Providers Care Yarn Twister Name Role Phone Naveed Peters MD Primary Care Provider [phone] Reason for Visit * Reason Onset Date Comments Pre Cert/Prior Auth 03/11/2024 Wegovy Encounter Details Date Type Department Care Team (Late st Contact Info) Description 03/11/2024 Telephone [facility] [address] [facility] [place] [address] Naveed Peters MD [address] [place] [address] Pre Cert/Prior Auth (Wegovy) Allergies [...] Active Wegovy 0.25 MG/0.5ML Subcutaneous Solution Auto-injector (Semaglutide-[facility] Management)Indic ations:Class 3 obesity with alveolar hypoventilation, serious comorbidity, and body mass index (BMI) of 50.0 to 59.9 in adult (HCC),Coronary artery disease due to calcified coronary lesion,Cardiac pacemaker in situ,Paroxysmal A-fib (HCC),Stress-ind uced cardiomyopathy,O ld [place] (myocardial infarction),JALEN on CPAP,Hypertensiv e heart and [...] (01/05/2015): Statin stopped during 01/01/15 hospitalization at [facility] due to elevated LFTs Assessment [...] (Prevnar) 01/16/2016 Pneumococcal Conjugate Vacci ne, 20-valent ([id number]) 10/09/2021 Pneumococcal Polysaccharide PPV23 (Pneumovax) 12/21/2014 Season [...] encounter Miscellaneous Notes * Telephone Encounter - Selene Holguin CPhT - 03/11/2024 2:48 PM EST Patients insurance would like to inform the office that wegovy is approved until 02/15/25. Patient and pharmacy made aware by [facility]. Information will be faxed to the office. Thank you, Selene Holguin CPhT II Bobbin Inspector [facility] ([facility]) 03/11/2024, 2:48 PM * Telephone Encounter - Sheree Melchor LPN - 03/11/2024 1:53 PM EST Prior auth started with PromptPA for Wegovy EOC # [id number] documented in this encounter Plan of Treatment Upcoming Encounters Date Type Department Care Team (Latest Contact Info) Description 04/26/2024 3:30 PM EDT Office Visit Cardiology, [address] [place] [address] Yulia Almonte CRNP [address] [place] [address] 05/05/2024 3:30 PM EDT Imaging Radiology [facility] 1st [facility] [address] [place] [address] 07/07/2024 11:04 AM EDT Hospital Encounter OR [facility], Operating Room, [facility] - 4th Floor [address] [place] [phone] Jong Myers, DO [address] [place] [address] 07/07/2024 11:04 AM EDT - 07/07/2024 11:45 AM EDT Surgery OR [facility], Operating Room, [facility] - 4th Floor [address] [place] [phone] Jong Myers, DO [address] [place] [address] COLONOSCOPY FLEXIBLE PROXIMAL DIAGNOSTIC Scheduled Procedures Name [...] First Alternate Health Care Agent Care Teams Yarn Twister Relationship Specialty Start Date End Date Naveed Peters MD [address] [place] [address] PCP - General Internal Medicine 12/15/23 documented as of this encounter
--- OUTSIDE RECORDS SUMMARY | 2024-06-16 20:32 | External Medical Summary | Summary of Care ---
Author Name Unknown Organization [facility] Address [address] [place] [facility] [place] [address] Phone [phone] Care Team Providers Care Custodian Name Role Phone Naveed Peters MD Primary Care Provider Reason for Visit * Reason Onset Date Comments Medication Refill 03/07/2024 Encounter Details Date Type Department Care Team (Late st Contact Info) Description 03/07/2024 Refill [facility] [address] [facility] [place] [address] Naveed Peters MD [address] [facility] [place] [address] Chronic right-sided low back pain with right-sided sciatica Allergies Active Allergy Reactions Criticality Noted Date Comments Celecoxib Hives 12/27/1999 Latex Rash 07/11/2011 Lisinopril Cough 05/29/2014 documented as of this encounter (statuses as of 03/08/2024) Medications Aspirin 81 MG Tablet Take 1 [...] morning. 90 Tablet 3 06/10/19 24 Active Levothyroxine Sodium 75 MCG Oral Tablet (Levoxyl) Take 1 Tablet by mouth in the morning. (at least 30 min prior to breakfast or other meds). 30 Tablet 11 06/24/19 24 Active Eliquis 5 MG Oral Tablet (Apixaban) Take 1 tablet by mouth twice daily 180 Tablet 1 09/03/19 24 Active Vitamin B-12 500 MCG Oral Tablet (vitamin B-12) Take 1 Tablet by mouth in the morning. Active Wegovy 0.25 MG/0.5ML Subcutaneous Solution Auto-injector (Semaglutide-[facility]) Inject 0.25 mg under the skin once a week. 2 mL 1 12/14/19 24 Active Losartan Potassium 100 MG Oral Tablet [...] Pain, Severe. 90 Tablet 03/08/19 25 Active oxyCODONE HCl 5 MG Oral Tablet (Oxy IR)Indications:C hronic right-sided low back pain with right-sided sciatica Take 1.5 Tablets by mouth 2 times a day as needed for Pain, Severe. 90 Tablet 02/05/20 24 025 Discontin ued(Refil l) documented as of this encounter (statuses as of 03/08/2024) Active Problems Problem Noted Date Diagnosed Date [...] (01/05/2015): Statin stopped during 01/01/15 hospitalization at [facility] due to elevated LFTs Assessment [...] as of this encounter (statuses as of 03/08/2024) Resolved Problems Problem Noted Date Diagnosed Date [...] as of this encounter (statuses as of 03/08/2024) Immunizations Name Administration Dates Next Due COVID-19 mRNA, LNP-s, No Pre serve, 2-Dose Series ([employer]) 02/05/2021 COVID-19, MRNA-LNP, PF, 30 M CG/0.3 mL, 12 YRS AND ABOVE, IM (PFIZER-Comirnaty) 01/26/2023 Pneumococcal Conjugate Vacc, 13 Valent (Prevnar) 01/16/2016 Pneumococcal Conjugate Vacci ne, 20-valent ([id number]) 10/09/2021 Pneumococcal Polysaccharide PPV23 (Pneumovax) 12/21/2014 Season [...] No 12/07/2023 Does the household have a [facility] source of income? (Household - for [...] Telephone Encounter - Naveed Peters MD - 03/08/2024 8:20 AM ESTSigned Prescriptions: Disp Refills oxyCODONE HCl 5 MG Oral Tablet (Oxy IR) 90 Tab*0 Sig: Take 1.5 Tablets by mouth 2 times a day as needed for Pain, Severe. Authorizing Provider: NAVEED PETERS * Telephone Encounter - Tova Ward RP - 03/07/2024 3:44 PM ESTPending Prescriptions: Disp Refills oxyCODONE HCl 5 MG Oral Tablet (Oxy IR) 90 Tab*0 Sig: Take 1.5 Tablets by mouth 2 times a day as needed for Pain, Severe. * Telephone Encounter - Tova Ward RPh - 03/07/2024 3:43 PM EST I have reviewed the patient’s controlled substance dispensing history in the Prescription Drug Monitoring Program in compliance with the [place] regulations before prescribing a controlled substance. PDMP checked on 03/07/2024. Pending Prescriptions: Disp Refills oxyCODONE HCl 5 MG Oral Tablet (Oxy IR) 90 Tab*0 Sig: Take 1.5 Tablets by mouth 2 times a day as needed for Pain, Severe. Last Visit: Visit date not found (in office), Visit date not found (telemedicine) Next Visit: 03/10/2024 Date medication was last filled: 02/06/24 Date medication is due for refill: 03/06/24 Pharmacy: [facility] [address] [place] [address] IVAN LAZARO [place] Is this request for a controlled substance? [...] Results Review. Please approve if appropriate. Thanks, Tova Ward Clinical Pharmacist [facility] ([facility]) [phone] 03/07/2024, 3:43 PM documented in this encounter Plan of Treatment Upcoming Encounters Date Type Department Care Team (Latest Contact Info) Description 03/10/2024 9:40 AM EST Telemedicine [facility] Kulwant Anton [address] [place] [phone] Naveed Peters MD [address] [place] [address] 04/26/2024 3:30 PM EDT Office Visit Cardiology, [facility] [address] [place] [address] Yulia Almonte CRNP [address] [place] [address] 05/05/2024 3:30 PM EDT Imaging Radiology [facility] 1st [facility] [address] [place] [phone] 07/07/2024 11:00 AM EDT Hospital Encounter OR [facility], Operating Room, [facility] - 4th Floor [address] [place] [phone] Jong Myers, DO [address] [place] [address] 07/07/2024 11:00 AM EDT - 07/07/2024 11:41 AM EDT Surgery OR [facility], Operating Room, [facility] - 4th Floor [address] [place] [phone] Jong Myers, DO [address] [place] [address] COLONOSCOPY FLEXIBLE PROXIMAL DIAGNOSTIC Scheduled Procedures Name [...] Agents on File Name Relationship Healthcare Agent Relationstn p Communication Drew Banerjee Adult Child First Alternate Health Care Agent Care Teams Custodian Relationship Specialty Start Date End Date Naveed Peters MD [address] [place] [address] PCP - General Internal Medicine 12/15/23 documented as of this encounter
--- OUTSIDE RECORDS SUMMARY | 2024-06-16 20:32 | External Medical Summary | Summary of Care ---
Author Name Unknown Organization [facility] Address [address] [place] [facility] [place] [address] Phone [phone] Care Team Providers Care Security Systems Engineer Name Role Phone Naveed Peters MD Primary Care Provider [phone] Encounter Details Date Type Department Care Team (Late st Contact Info) Description 03/14/2024 Orders Only PATIENT PORTAL DO NOT DELETE THIS DEPT USED BY [place] [address] Allergies Active Allergy Reactions Criticality Noted Date Comments Celecoxib Hives 12/27/1999 Latex Rash 07/11/2011 Lisinopril Cough 05/29/2014 documented as of this encounter (statuses as of 03/14/2024) Medications Aspirin 81 MG Tablet Take 1 [...] Active Wegovy 0.25 MG/0.5ML Subcutaneous Solution Auto-injector ([facility])Indic ations:Class 3 obesity with alveolar hypoventilation, serious comorbidity, and body mass index (BMI) of 50.0 to 59.9 in adult (HCC),Coronary artery disease due to calcified coronary lesion,Cardiac pacemaker in situ,Paroxysmal A-fib (HCC),Stress-ind uced cardiomyopathy,O ld [place] (myocardial infarction),JALEN on CPAP,Hypertensiv e heart and [...] as of this encounter (statuses as of 03/14/2024) Active Problems Problem Noted Date Diagnosed Date [...] can see ENT. She voiced understanding. Old [place] (myocardial infarction) 02/10/2018 Personal history of pulmonary [...] (01/05/2015): Statin stopped during 01/01/15 hospitalization at [facility] due to elevated LFTs Assessment [...] as of this encounter (statuses as of 03/14/2024) Resolved Problems Problem Noted Date Diagnosed Date [...] as of this encounter (statuses as of 03/14/2024) Immunizations Name Administration Dates Next Due COVID-19 mRNA, LNP-s, No Pre serve, 2-Dose Series ([employer]) 02/05/2021 COVID-19, MRNA-LNP, PF, 30 M CG/0.3 mL, 12 YRS AND ABOVE, IM (PFIZER-Comirnaty) 01/26/2023 Pneumococcal Conjugate Vacc, 13 Valent (Prevnar) 01/16/2016 Pneumococcal Conjugate Vacci ne, 20-valent ([id number]) 10/09/2021 Pneumococcal Polysaccharide PPV23 (Pneumovax) 12/21/2014 Season [...] 04/26/2024 3:30 PM EDT Office Visit Cardiology, [facility] [address] [place] [address] Yulia Almonte CRNP [address] [place] [address] 05/05/2024 3:30 PM EDT Imaging Radiology [facility] 1st [facility] [address] [place] [phone] 07/07/2024 11:04 AM EDT Hospital Encounter OR [facility], Operating Room, [facility] - 4th Floor [address] [place] [phone] Jong Myers, DO [address] [place] [address] 07/07/2024 11:04 AM EDT - 07/07/2024 11:45 AM EDT Surgery OR [facility], Operating Room, [facility] - 4th Floor [address] [place] [phone] Jong Myers, DO [address] [place] [address] COLONOSCOPY FLEXIBLE PROXIMAL DIAGNOSTIC Scheduled Procedures Name [...] Agents on File Name Relationship [facility] Communication Drew Banerjee Adult Child First Alternate Health Care Agent Care Teams Security Systems Engineer Relationship Specialty Start Date End Date Naveed Peters MD [address] [place] [address] PCP - General Internal Medicine 12/15/23 documented as of this encounter
--- OUTSIDE RECORDS SUMMARY | 2024-06-16 20:32 | External Medical Summary ---
Author Name Unknown Address Unknown Organization K01:[facility] [place] [address] [place] [address] Laboratory Report Ordering Provider Test Date Status TOYA BROWN 03/29/2024 08:43:00 Final Observation Date Value Abnormality Reference (Units ) Status TSH 03/29/2024 08:43:00 4.48 Above high normal 0. 27-4.20 (uIU/mL) Final Performing Location [facility] - [address] [place] [address]
--- OUTSIDE RECORDS SUMMARY | 2024-06-16 20:32 | External Medical Summary | Summary of Care ---
Author Name Unknown Organization [facility] Address [address] [place] [address] Phone [phone] Care Team Providers Care Chainer Name Role Phone Naveed Peters MD Primary Care Provider [phone] Reason for Visit * Reason Onset Date Comments [facility]: Maintenance 03/18/2024 Encounter Details Date Type Department Care Team (Late st Contact Info) Description 03/18/2024 Telephone [facility], [place] [address] [place] [address] Dasia Hussein, JALEN [address] [place], [place] [id number] [facility]: Maintenance Allergies Active Allergy Reactions Criticality Noted Date Comments Celecoxib Hives 12/27/1999 Latex Rash 07/11/2011 Lisinopril Cough 05/29/2014 documented as of this encounter (statuses as of 03/18/2024) Medications Aspirin 81 MG Tablet Take 1 [...] Active Wegovy 0.25 MG/0.5ML Subcutaneous Solution Auto-injector ([facility])Indic ations:Class 3 obesity with alveolar hypoventilation, serious comorbidity, and body mass index (BMI) of 50.0 to 59.9 in adult (HCC),Coronary artery disease due to calcified coronary lesion,Cardiac pacemaker in situ,Paroxysmal A-fib (HCC),Stress-ind uced cardiomyopathy,O ld UT (myocardial infarction),JALEN on CPAP,Hypertensiv e heart and [...] as of this encounter (statuses as of 03/18/2024) Active Problems Problem Noted Date Diagnosed Date [...] can see ENT. She voiced understanding. Old UT (myocardial infarction) 02/10/2018 Personal history of pulmonary [...] (01/05/2015): Statin stopped during 01/01/15 hospitalization at [facility] due to elevated LFTs Assessment & Plan [...] as of this encounter (statuses as of 03/18/2024) Resolved Problems Problem Noted Date Diagnosed Date [...] 04/01/2022 Overview (04/01/2022): Progress Notes by PATRIZIA Chaudhry-C2 Sign when Signing Visit Hemoglobin A1C Adult [...] as of this encounter (statuses as of 03/18/2024) Immunizations Name Administration Dates Next Due COVID-19 mRNA, LNP-s, No Pre serve, 2-Dose Series ([employer]) 02/05/2021 COVID-19, MRNA-LNP, PF, 30 M CG/0.3 mL, 12 YRS AND ABOVE, IM (Zipidee-Comirnaty) 01/26/2023 Pneumococcal Conjugate Vacc, 13 Valent (Prevnar) 01/16/2016 Pneumococcal Conjugate Vacci ne, 20-valent ([id number]) 10/09/2021 Pneumococcal Polysaccharide PPV23 (Pneumovax) 12/21/2014 Season [...] No 12/07/2023 Does the household have a [facility] source [facility] income? (Household - [...] encounter Miscellaneous Notes * Telephone Encounter - Dasia Hussein OSA - 03/18/2024 12:56 PM EST Incoming call from pt - calling to cancel 3 pm visit as she is not feeling well. Offered to rs pts visit. She stated that RNCM normally calls her directly to schedule. Sent TT to RNCM to make aware and also asked if she would like me to rs pt in next available slot or if she would like to rs. Forwarding note to RNCM. documented in this encounter Plan of Treatment Upcoming Encounters Date Type Department Care Team (Latest Contact Info) Description 04/26/2024 3:30 PM EDT Office Visit Cardiology, [facility] 132 [facility] [place] [address] Yulia Almonte CRNP [address] [place] [address] Ciro [place] [id number] 05/05/2024 3:30 PM EDT Imaging Radiology [facility] 1st [facility] 132 [facility] [place] [address] 07/07/2024 11:04 AM EDT Hospital Encounter OR GL, Operating Room, [facility] - 4th Floor [address] [place] [phone] Jong Myers, DO [address] [place] [address] 07/07/2024 11:04 AM EDT - 07/07/2024 11:45 AM EDT Surgery OR [facility], Operating Room, [facility] - 4th Floor [address] [place] [phone] Jong Myers, DO [address] [place] [address] COLONOSCOPY FLEXIBLE PROXIMAL DIAGNOSTIC Scheduled Procedures Name [...] Agents on File Name Relationship Healthcare Agent [facility] Communication Drew Banerjee Adult Child First Alternate Health Care Agent Care Teams Chainer Relationship Specialty Start Date End Date Naveed Peters MD [address] [place] [address] PCP - General Internal Medicine 12/15/23 documented as of this encounter
--- OUTSIDE RECORDS SUMMARY | 2024-06-16 20:33 | External Medical Summary | Summary of Care ---
Author Name Unknown Organization [facility] Address [address] [place] [address] Phone [phone] Care Team Providers Care Single End Sewer Name Role Phone Naveed Peters MD Primary Care Provider [phone] Reason for Visit * Reason Comments eRx-Medication Refill Encounter Details Date Type Department Care Team (Late st Contact Info) Description 02/05/2024 Refill [facility] [address] [facility] [place] [address] Kirsten Richard, [address] [place], [place] [id number] HTN, goal below 150/90 Allergies Active Allergy Reactions Criticality Noted Date Comments Celecoxib Hives 12/27/1999 Latex Rash 07/11/2011 Lisinopril Cough 05/29/2014 documented as of this encounter (statuses as of 02/06/2024) Medications Aspirin 81 MG Tablet Take 1 [...] IN THE MORNING FOR CHOLESTEROL 90 Tablet 05/26/19 24 Active Escitalopram Oxalate 20 MG Oral Tablet (Lexapro)Indica tions:Major depressive disorder, recurrent, moderate (HCC) Take 1 Tablet by mouth in the morning. 90 Tablet 3 06/10/19 24 Active amLODIPine Besylate 5 MG Oral Tablet (Norvasc) Take 1 Tablet by mouth in the morning. 90 Tablet 06/10/19 24 Active Levothyroxine Sodium 75 MCG Oral Tablet (Levoxyl) Take 1 Tablet by mouth in the morning. (at least 30 min prior to breakfast or other meds). 30 Tablet 11 06/24/19 24 Active Eliquis 5 MG Oral Tablet (Apixaban) Take 1 tablet by mouth twice daily 180 Tablet 1 09/03/19 24 Active Furosemide 20 MG Oral Tablet (Lasix)Indicati ons:Leg swelling Take 1 Tablet by mouth daily as needed for Other (Edema). Every Thursday, Thursday and 36 Tablet 1 09/07/19 24 Active Amiodarone HCl 200 MG Oral Tablet (Cordarone) Take 1 tablet by mouth once daily 90 Tablet 11/20/19 24 Active Gabapentin 100 MG Oral Capsule (Neurontin) TAKE 2 CAPSULES BY MOUTH IN THE MORNING 2 AT NOON AND 3 AT BEDTIME 217 Capsule 11/30/19 24 Active Additional Information Patient taking differently: TAKE 2 CAPSULES BY MOUTH IN THE MORNING AND 3 AT BEDTIME, Reported on 12/01/2023 Vitamin B-12 500 MCG Oral Tablet (vitamin B-12) Take 1 Tablet by mouth in the morning. Active Wegovy 0.25 MG/0.5ML Subcutaneous Solution Auto-injector (Semaglutide-We ight Management) Inject 0.25 mg under the skin once a week. 2 mL 1 12/14/19 24 Active oxyCODONE HCl 5 MG Oral Tablet (Oxy IR)Indications: Chronic right-sided low back pain with right-sided sciatica Take 1.5 Tablets by mouth 2 times a day as needed for Pain, Severe. 90 Tablet 02/05/20 24 Active Losartan Potassium 100 MG Oral Tablet (Cozaar)Indicat ions:HTN, goal below 150/90 TAKE 1 TABLET BY MOUTH IN THE MORNING 90 Tablet 02/06/20 24 Active Losartan Potassium 100 MG Oral Tablet (Cozaar)Indicat ions:HTN, goal below 150/90 Take 1 Tablet by mouth in the morning. 90 Tablet 3 02/12/20 23 024 Discontinued documented as of this encounter (statuses as of 02/06/2024) Active Problems Problem Noted Date Diagnosed Date [...] [facility]. May benefit [...] (01/05/2015): Statin stopped during 01/01/15 hospitalization at [facility] due to elevated LFTs Assessment & [...] as of this encounter (statuses as of 02/06/2024) Resolved Problems Problem Noted Date Diagnosed Date [...] as of this encounter (statuses as of 02/06/2024) Immunizations Name Administration Dates Next Due COVID-19 mRNA, LNP-s, No Pre serve, 2-Dose Series ([employer]) 02/05/2021 COVID-19, MRNA-LNP, PF, 30 M CG/0.3 mL, 12 YRS AND ABOVE, IM (CommScope-Comirnat) 01/26/2023 Pneumococcal Conjugate Vacc, 13 Valent (Prevnar) 01/16/2016 Pneumococcal Conjugate Vacci ne, 20-valent (Ueklnds23) 10/09/2021 Pneumococcal Polysaccharide PPV23 (Pneumovax) 12/21/2014 Season [...] 11/21/2015 12:20 AM Nancy uEceda RN * Are you blind or do [...] Entry Date Author No 11/21/2015 12:20 AM EDNancy Avelar RN documented in this encounter Miscellaneous Notes * Telephone Encounter - Isadora Arce [facility] - 02/06/2024 1:33 PM ESTSigned Prescriptions: Disp Refills Losartan Potassium 100 MG Oral Tablet (Coz*90 Tab*0 Sig: TAKE 1 TABLET BY MOUTH IN THE MORNING Authorizing Provider: KIRSTEN RICHARD User: ISADORA ARCE * Telephone Encounter - Isadora Arce RP - 02/06/2024 1:33 PM EST RX authorized. Zero refills given until upcoming appt. 03/10/2024 Thank you, Isadora Arce PharmD Clinical Pharmacist [facility] 02/06/24 1:33 PM [phone] documented in this encounter Plan of Treatment Upcoming Encounters Date Type Department Care Team (Late st Contact Info) Description 02/11/2024 2:30 PM EST Imaging Radiology [facility] 1st [facility] 132 [facility] [place] [address] 02/23/2024 3:30 PM EST Office Visit Cardiology, [facility] 132 [facility] [place] [address] Yulia Almonte CRNP [address] [place] [address] 03/10/2024 9:40 AM EST Telemedicine [facility] [place] Kulwant Desean [address] [place] [address] Naveed Peters MD [address] [place] [address] Scheduled Procedures Name Priority Associated Diagnoses Date/Ti me COLONOSCOPY FLEXIBLE PROXIMA L DIAGNOSTIC Recall Personal history of colonic polyps Health Maintenance Due Date Last Done Comments [...] Vaccines Completed 05/16/2018, 01/18, 05/07/2015 Pneumococcal Vaccine: 65+ Years Completed 10/09/2021, 01/16/2016, 12/21/2014 Influenza Vaccine [...] stage 3a chronic kidney disease ([facility]) Tachy-jess syndrome ([facility]) Sinoatrial node dysfunction Cardiac pacemaker in situ Personal history of pulmonary embolism Chronic low back pain, unspecified back pain laterality, unspecified whether sciatica present Dysfunction of both eustachian tubes Dysfunction of Eustachian tube Obesity, morbid (more than 100 lbs over ideal weight or BMI > 40) ([facility]) Morbid obesity Chronic bilateral low back pain with bilateral sciatica- Primary Cardiac pacemaker in situ Hypertensive heart and kidney disease with chronic diastolic congestive heart failure and stage 3a chronic kidney disease ([facility]) Paroxysmal A-fib ([facility]) Atrial fibrillation Hypothyroidism, unspecified type Gastroesophageal reflux disease without esophagitis Esophageal reflux Major depressive disorder, recurrent, moderate ([facility]) Major depressive disorder, recurrent episode, moderate Paroxysmal A-fib ([facility])- Primary Atrial fibrillation Major depressive disorder, recurrent, moderate ([facility]) Major depressive disorder, recurrent episode, moderate PAF (paroxysmal atrial fibrillation) ([facility]) Atrial fibrillation Essential (primary) hypertension Unspecified [...] Stage II (mild) HTN, goal below 150/90 documented in this encounter Advance Directives * [...] First Alternate Health Care Agent Care Teams Single End Sewer Relationship Specialty Start Date End Date Naveed Peters MD 132 [facility] [place] [address] PCP - General Internal Medicine 12/15/23 documented as of this encounter
--- OUTSIDE RECORDS SUMMARY | 2024-06-16 20:33 | External Medical Summary | Summary of Care ---
Author Name Unknown Organization [facility] Address [address] [facility] [address] Phone [phone] Care Team Providers Care Screen Roller Name Role Phone Naveed Peters MD Primary Care Provider [phone] Reason for Visit * Reason Comments eRx-Medication Refill Encounter Details Date Type Department Care Team (Late st Contact Info) Description 02/17/2024 Refill Cardiology, [facility] 132 [facility] [place] [phone] Chloe Frias, 400 [facility] [place] [address] Allergies Active Allergy Reactions Criticality Noted Date Comments Celecoxib Hives 12/27/1999 Latex Rash 07/11/2011 Lisinopril Cough 05/29/2014 documented as of this encounter (statuses as of 02/18/2024) Medications Aspirin 81 MG Tablet Take 1 [...] and 36 Tablet 1 09/07/19 24 Active Gabapentin 100 MG Oral Capsule [...] once daily 90 Tablet 02/17/19 25 Active Amiodarone HCl 200 MG Oral Tablet (Cordarone) Take 1 tablet by mouth once daily 90 Tablet 11/20/19 24 025 Discontinued documented as of this encounter (statuses as of 02/18/2024) Active Problems Problem Noted Date Diagnosed Date [...] as of this encounter (statuses as of 02/18/2024) Resolved Problems Problem Noted Date Diagnosed Date [...] as of this encounter (statuses as of 02/18/2024) Immunizations Name Administration Dates Next Due COVID-19 mRNA, LNP-s, No Pre serve, 2-Dose Series ([employer]) 02/05/2021 COVID-19, MRNA-LNP, PF, 30 M CG/0.3 mL, 12 YRS AND ABOVE, IM (PFIZER-Comirnaty) 01/26/2023 Pneumococcal Conjugate Vacc, 13 Valent (Prevnar) 01/16/2016 Pneumococcal Conjugate Vacci ne, 20-valent ([id number]) 10/09/2021 Pneumococcal Polysaccharide PPV23 (Pneumovax) 12/21/2014 Season [...] encounter Miscellaneous Notes * Telephone Encounter - Syl Ramires LPN - 02/18/2024 10:30 AM ESTPending Prescriptions: Disp Refills Amiodarone HCl 200 MG Oral Tablet 90 Tab*0 Sig: Take 1 tablet by mouth once daily * Telephone Encounter - Syl Ramires LPN - 02/18/2024 10:29 AM EST Pt needs apt for further refills of amiodarone * Telephone Encounter - Donna Sanders - 02/17/2024 2:19 PM ESTPending Prescriptions: Disp Refills Amiodarone HCl 200 MG Oral Tablet 90 Tab*0 Sig: Take 1 tablet by mouth once daily * Telephone Encounter - Donna Sanders - 02/17/2024 2:17 PM EST Did you pend patient's preferred pharmacy and medication before forwarding?yes Pharmacy: [facility] [address] [place] [address] [place] Pending Prescriptions: Disp Refills Amiodarone HCl 200 MG Oral Tablet (Cordar*90 Tab*0 Sig: Take 1 tablet by mouth once daily Last Visit: 12/13/2021 (in office), 09/12/2022 (telemedicine) Next Visit: 02/23/2024 If no future appointments scheduled, and last appointment is greater than a year ago, please schedule patient for a follow-up appointment Last date the medication was ordered: 11/20/2023 Is this request for a controlled substance?No [...] Labs: Lab Results Component Value Date/Time CREAT 0.8 12/07/2023 03:14 PM CREAT 1.1 (H) 02/24/2020 09:53 AM POTASSIUM 3.6 12/07/2023 03:14 PM POTASSIUM 3.8 02/24/2020 09:53 AM TSH 5.24 (H) 09/03/2023 08:38 AM TSH 4.65 (H) 02/24/2020 09:53 AM LDL 57 04/07/2023 09:23 AM LDL 66 10/28/2019 11:28 AM LDL NOT APPLICABLE 10/28/2019 11:28 AM ALT 23 12/07/2023 03:14 PM ALT 20 02/24/2020 09:53 AM HGBA1C 5.6 04/07/2023 09:23 AM HGBA1C 5.7 (H) 07/18/2019 02:28 PM documented in this encounter Plan of Treatment Upcoming Encounters Date Type Department Care Team (Latest Contact Info) Description 02/23/2024 2:45 PM EST Imaging Radiology [facility] 1st [facility] [address] [place] [address] 02/23/2024 3:30 PM EST Office Visit Cardiology, [facility] [address] [place] [address] Yulia Almonte CRNP [address] [place] [address] 03/10/2024 9:40 AM EST [facility]medicine [facility] [phone] Naveed Peters MD [facility] [address] 07/07/2024 11:00 AM EDT Hospital Encounter OR [facility], Operating Room, [facility] - 4th Floor [address] [place] [phone] Jong Myers, DO [address] [place] [address] 07/07/2024 11:00 AM EDT - 07/07/2024 11:41 AM EDT Surgery OR [facility], Operating Room, [facility] - 4th Floor [address] [place] [phone] Jong Myers, DO [address] [place] [address] COLONOSCOPY FLEXIBLE PROXIMAL DIAGNOSTIC Scheduled Procedures Name [...] 07/12/2020, Additional history exists TSH 09/02/2024 09/03/2023, 022 , 11/11/2022, Additional history exists Depression Monitoring 12/06/2024 [...] on File Name Relationship Healthcare Agent [facility] p Communication Drew Banerjee Adult Child First Alternate Health Care Agent Care Teams Screen Roller Relationship Specialty Start Date End Date Naveed Peters MD [address] [place] [address] PCP - General Internal Medicine 12/15/23 documented as of this encounter
--- OUTSIDE RECORDS SUMMARY | 2024-06-16 20:33 | External Medical Summary | Summary of Care ---
Author Name Unknown Organization [facility] Address [address] [place] [address] Phone [phone] Care Team Providers Care Diamond Sizer And Grader Name Role Phone Naveed Peters MD Primary Care Provider [phone] Reason for Referral * Ancillary Services (Within 30 days (routine)) - Authorized Specialty Diagnoses / Procedures Referred By Miriam barillas Referred To Contact Gastroenterology Diagnoses Screening for malignant neoplasm of colon Naveed Peters MD [address] [place] [address] Phone: tel: fax: Referral ID Status Reason Start Date Expiration Date Visits Requested Visits Authorized [id number] Authorized Ancillary Services Required 4 1 1 Question Answer Referral Priority Within 30 days (routine) Where should this appointment be scheduled? [facility] Comments ALERT: Do not order for pediatric patients (18 years or younger). Cancel off screen and order PEDS GASTROENTEROLOGY CONSULT (Type: 1 visit only-Evaluate and Treat) The following Pt. Instructions are available: - Gastro Colonoscopy Prep Instructions [[id number]] - Gastro Colonoscopy Prep Instructions (Swazi Version) [[id number]] Go to the Pt. Instructions section within the Visit Navigator to access. Colonoscopy ASGE Guidelines: Average risk screening (begin at age 50, 10 year intervals) ADDITIONAL INFORMATION 1. Is the patient on Coumadin? No 2. Is the patient on Pradaxa? No Reason for Visit * Reason Onset Date Comments Health Maintenance 02/11/2024 Encounter Details Date Type Department Care Team (Late st Contact Info) Description 02/11/2024 Telephone [facility] [place] [address] [place] [address] Naveed Peters MD [address] [place] [address] Health Maintenance Allergies Active Allergy Reactions Criticality Noted Date Comments Celecoxib Hives 12/27/1999 Latex Rash 07/11/2011 Lisinopril Cough 05/29/2014 documented as of this encounter (statuses as of 02/11/2024) Medications Aspirin 81 MG Tablet Take 1 [...] twice daily 180 Tablet 1 4 Active Furosemide 20 MG Oral Tablet (Lasix)Indicatio ns:Leg swelling Take 1 Tablet by mouth daily as needed for Other (Edema). Every Thursday, Thursday and 36 Tablet 1 4 Active Amiodarone HCl 200 MG Oral Tablet (Cordarone) Take 1 tablet by mouth once daily 90 Tablet 4 Active Gabapentin 100 MG Oral Capsule (Neurontin) TAKE 2 CAPSULES BY MOUTH IN THE MORNING 2 AT NOON AND 3 AT BEDTIME 217 Capsule 4 Active Additional Information Patient taking differently: TAKE 2 CAPSULES BY MOUTH IN THE MORNING AND 3 AT BEDTIME, Reported on 12/01/2023 Vitamin B-12 500 MCG Oral Tablet (vitamin B-12) Take 1 Tablet by mouth in the morning. Active Wegovy 0.25 MG/0.5ML Subcutaneous Solution Auto-injector ([facility]) Inject 0.25 mg under the skin [...] IN THE MORNING 90 Tablet 4 Active documented as of this encounter (statuses as of 02/11/2024) Active Problems Problem Noted Date Diagnosed Date [...] can see ENT. She voiced understanding. Old MD (myocardial infarction) 02/10/2018 Personal history of pulmonary [...] Umbilical hernia 04/18/2015 Overview (04/18/2015): CT urogram 2/26/16: Fat containing Spigelian type hernia on the [...] (01/05/2015): Statin stopped during 01/01/15 hospitalization at [facility] due to elevated LFTs Assessment [...] as of this encounter (statuses as of 02/11/2024) Resolved Problems Problem Noted Date Diagnosed Date [...] as of this encounter (statuses as of 02/11/2024) Immunizations Name Administration Dates Next Due COVID-19 mRNA, LNP-s, No Pre serve, 2-Dose Series (Pfizer) 02/05/2021 COVID-19, MRNA-LNP, PF, 30 M CG/0.3 mL, 12 YRS AND ABOVE, IM (PFIZER-Comirnaty) 01/26/2023 Pneumococcal Conjugate Vacc, 13 Valent (Prevnar) 01/16/2016 Pneumococcal Conjugate Vacci ne, 20-valent (Vhdants39) 10/09/2021 Pneumococcal Polysaccharide PPV23 (Pneumovax) 12/21/2014 Season [...] encounter Miscellaneous Notes * Telephone Encounter - Nancy Kelley OSA - 02/11/2024 2:27 PM EST Spoke to nancy hebert 07/07/24 at [facility]. * Telephone Encounter - Desiree Purcell LPN - 02/11/2024 1:52 PM EST Care Gaps Comprehensive Care Outreach Last Office/Telemedicine Visit: Visit date not found (in office), Visit date not found (telemedicine) Next Office Visit: 03/10/2024 Hemoglobin AIC Results: Lab Results Component Value Date/Time HEMOGLOBIN A1C - [facility] 5.6 04/07/2023 09:23 AM HEMOGLOBIN A1C - [facility] 5.5 11/11/2022 08:13 AM HEMOGLOBIN A1C - [facility] 5.2 03/27/2022 09:12 AM HEMOGLOBIN A1C - [facility] 5.7 (H) 07/18/2019 02:28 PM HEMOGLOBIN A1C - [facility] 5.5 11/15/2018 09:52 AM HEMOGLOBIN A1C - [facility] 5.0 02/06/2011 09:53 AM BP Readings from Last 1 Encounters: 12/07/23 142/82 Reviewed Health Maintenance below: Health Maintenance Topic Date Due Adult Wellness Visit Never done Colorectal Cancer Screening 07/17/2021 DTap/Tdap Vaccines (2 - Td or Tdap) 11/26/2021 DXA Scan 12/20/2022 Mammogram 04/23/2023 Colon patient would like to have this done. Needs to go to [facility] bmi Dexa declined Mamm already scheduled Care Gap Outreach Action Taken: Spoke to patient Patient needs scheduled for her colonoscopy at [facility]. Please reach out to patient to assist with scheduling. BMI 58.10 documented in this encounter Plan of Treatment Upcoming Encounters Date Type Department Care Team (Latest Contact Info) Description 02/23/2024 2:45 PM EST Imaging Radiology [address] [place] [address] 02/23/2024 3:30 PM EST Office Visit Cardiology, [facility] [place] [address] Yulia Almonte CRNP 400 [facility] [place] [address] 03/10/2024 9:40 AM EST Telemedicine Family [facility] [place] [address] [place] [phone] Naveed Peters MD [address] [place] [address] 07/07/2024 11:00 AM EDT Hospital Encounter [place] [facility], Operating Room, [facility] - 4th Floor [address] [place] [phone] Jong Myers, [address] [place] [address] 07/07/2024 11:00 AM EDT - 07/07/2024 11:41 AM EDT Surgery OR [facility], Operating Room, [facility] - 4th Floor [address] [place] [phone] Jong Myers DO [address] [place] [address] COLONOSCOPY FLEXIBLE PROXIMAL DIAGNOSTIC Scheduled Procedures Name Priority Associated Diagnoses Date/Ti me COLONOSCOPY FLEXIBLE PROXIMAL DIAGNOSTIC Recall Personal history of colonic polyps 07/07/2024 11:00 AM EDT Scheduled Referrals Name Type Priority Associated Diagnoses Orde r Schedule COLONOSCOPY, GI REFERRAL OP Referral Within 30 days (routine) Screening for malignant neoplasm of colon Ordered: 02/11/2024 Health Maintenance Due Date Last Done Comments [...] (mild) Chronic kidney disease, Stage II (mild) Screening for malignant neoplasm of colon- Primary Personal history of colonic polyps documented in [...] Agents on File Name Relationship Healthcare Agent [facility] p Communication Drew Banerjee Adult Child First Alternate Health Care Agent Care Teams Diamond Sizer And Grader Relationship Specialty Start Date End Date Naveed Peters MD [address] [place] [address] PCP - General Internal Medicine 12/15/23 documented as of this encounter
--- OUTSIDE RECORDS SUMMARY | 2024-06-16 20:33 | External Medical Summary | Summary of Care ---
Author Name Unknown Organization [facility] Address [address] [facility] [place] [address] Phone [phone] Care Team Providers Care Deburrer Strip Name Role Phone Naveed Peters MD Primary Care Provider [phone] Reason for Visit * Reason Onset Date Comments Medication Refill 02/21/2024 Encounter Details Date Type Department Care Team (Late st Contact Info) Description 02/21/2024 Refill Cardiology, [facility] [address] [facility] [place] [id number] Chloe Frias, 400 [facility] [place] [phone] Allergies Active Allergy Reactions Criticality Noted Date Comments Celecoxib Hives 12/27/1999 Latex Rash 07/11/2011 Lisinopril Cough 05/29/2014 documented as of this encounter (statuses as of 02/21/2024) Medications Aspirin 81 MG Tablet Take 1 [...] Thursday and 36 Tablet 1 4 Active Gabapentin 100 MG Oral Capsule [...] Subcutaneous Solution Auto-injector (Semaglutide-[facility]) Inject 0.25 mg under the skin [...] mouth once daily 90 Tablet 5 Active documented as of this encounter (statuses as of 02/21/2024) Active Problems Problem Noted Date Diagnosed Date [...] [facility] May benefit [...] can see ENT. She voiced understanding. Old [place] (myocardial infarction) 02/10/2018 Personal history of pulmonary [...] as of this encounter (statuses as of 02/21/2024) Resolved Problems Problem Noted Date Diagnosed Date [...] as of this encounter (statuses as of 02/21/2024) Immunizations Name Administration Dates Next Due COVID-19 mRNA, LNP-s, No Pre serve, 2-Dose Series ([employer]) 02/05/2021 COVID-19, MRNA-LNP, PF, 30 M CG/0.3 mL, 12 YRS AND ABOVE, IM (Teachbase-Comirnat) 01/26/2023 Pneumococcal Conjugate Vacc, 13 Valent (Prevnar) 01/16/2016 Pneumococcal Conjugate Vacci ne, 20-valent ([id number]) 10/09/2021 Pneumococcal Polysaccharide PPV23 (Pneumovax) 12/21/2014 Season [...] Nancy Jose RN documented in this encounter Miscellaneous Notes * Telephone Encounter - Ramona Farris - 02/21/2024 1:08 PM ESTRefused Prescriptions: Disp Refills Amiodarone HCl 200 MG Oral Tablet (Cordaro*90 Tab*0 Sig: Take 1tablet by mouth once dailyRefused By: RAMONA FARRISReason for Refusal: Duplicate Request-------- documented in this encounter Plan of Treatment Upcoming Encounters Date Type Department Care Team (Latest Contact Info) Description 02/23/2024 2:45 PM EST Imaging Radiology [facility] 1st [facility] [address] [facility] [place] [address] 02/23/2024 3:30 PM EST Office Visit Cardiology, [facility] [address] [place] [address] Yulia Almonte CRNP [address] [place] [address] 03/10/2024 9:40 AM EST Telemedicine [facility] [address] [place] [phone] Naveed Peters MD 226 [facility] [place] [address] 07/07/2024 11:00 AM EDT Hospital Encounter OR [facility], Operating Room, [facility] - 4th Floor [address] [place] [phone] Jong Myers, DO [address] [place] [address] 07/07/2024 11:00 AM EDT - 07/07/2024 11:41 AM EDT Surgery OR [facility], Operating Room, [facility] - 4th Floor [address] [place] [phone] Jong Myers, DO [address] [place] [address] COLONOSCOPY FLEXIBLE PROXIMAL DIAGNOSTIC Scheduled Procedures Name [...] First Alternate Health Care Agent Care Teams Deburrer Strip Relationship Specialty Start Date End Date Naveed Peters MD 132 [place] [address] PCP - General Internal Medicine 12/15/23 documented as of this encounter
--- OUTSIDE RECORDS SUMMARY | 2024-06-16 20:33 | External Medical Summary | Summary of Care ---
Author Name Unknown Organization [facility] Address [address] [place] [address] Phone [phone] Care Team Providers Care Physical Biochemist Name Role Phone Naveed Peters MD Primary Care Provider [phone] Encounter Details Date Type Department Care Team (Late st Contact Info) Description 01/21/2024 Result Scan Unspecified Department Chloe Frias, DO [facility] [address] <No scans attached> Allergies Active Allergy Reactions Criticality Noted Date Comments Celecoxib Hives 12/27/1999 Latex Rash 07/11/2011 Lisinopril Cough 05/29/2014 documented as of this encounter (statuses as of 01/22/2024) Medications Aspirin 81 MG Tablet Take 1 [...] 3 times a day as needed. Active Losartan Potassium 100 MG Oral Tablet (Cozaar)Indicati ons:HTN, goal below 150/90 Take 1 Tablet by mouth in the morning. 90 Tablet 3 3 Active Metoprolol Succinate ER 25 MG Oral [...] Active Wegovy 0.25 MG/0.5ML Subcutaneous Solution Auto-injector ([facility]) Inject 0.25 mg under the skin once a week. 2 mL 1 4 Active oxyCODONE HCl 5 MG Oral Tablet (Oxy IR)Indications:C hronic right-sided low back pain with right-sided sciatica Take 1.5 Tablets by mouth 2 times a day as needed for Pain, Severe. 90 Tablet 4 Active documented as of this encounter (statuses as of 01/22/2024) Active Problems Problem Noted Date Diagnosed Date [...] can see ENT. She voiced understanding. Old [place] (myocardial infarction) 02/10/2018 Personal history of pulmonary [...] respiratory events were associated with oxygen desaturations (klveer of 62 %).At a CPAP setting of [...] as of this encounter (statuses as of 01/22/2024) Resolved Problems Problem Noted Date Diagnosed Date [...] as of this encounter (statuses as of 01/22/2024) Immunizations Name Administration Dates Next Due COVID-19 mRNA, LNP-s, No Pre serve, 2-Dose Series (Nine[employer]) 02/05/2021 COVID-19, MRNA-LNP, PF, 30 M CG/0.3 mL, 12 YRS AND ABOVE, IM (PFIZER-Comirnaty) 01/26/2023 Pneumococcal Conjugate Vacc, 13 Valent (Prevnar) 01/16/2016 Pneumococcal Conjugate Vacci ne, 20-valent ([id number]) 10/09/2021 Pneumococcal Polysaccharide PPV23 (Pneumovax) 12/21/2014 Season [...] Care Team (Late st Contact Info) Description 02/04/2024 2:30 PM EST Imaging Radiology [facility] 1st [facility] 132 [facility] [place] [address] 02/23/2024 3:30 PM EST Office Visit Cardiology, [facility] 132 [facility] [place] [address] Yulia Almonte CRNP [address] [place] [address] 03/10/2024 9:40 AM EST Telemedicine Family Practice, [place] [facility] [place] [address] [facility] [place] [phone] Naveed Peters MD [address] [facility] [place] [address] Scheduled Procedures Name Priority Associated Diagnoses Date/Ti [...] Date/Time Associated Diagnosis Comments CARDIOLOGY SCANNED RESULT 01/21/2024 documented in this encounter Results * CARDIOLOGY SCANNED RESULT (01/21/2024) 01/21/2024 Chloe Frias DO OTHER Final R esult [...] First Alternate Health Care Agent Care Teams Physical Biochemist Relationship Specialty Start Date End Date Naveed Peters MD [address] [place] [address] PCP - General Internal Medicine 12/15/23 documented as of this encounter
--- OUTSIDE RECORDS SUMMARY | 2024-06-16 20:33 | External Medical Summary | Summary of Care ---
Author Name Unknown Organization [facility] Address [address] [place] [address] Phone [phone] Care Team Providers Care Chromium Plater Name Role Phone Naveed Peters MD Primary Care Provider [phone] Reason for Visit * Reason Onset Date Comments Medication Refill 02/04/2024 Encounter Details Date Type Department Care Team (Late st Contact Info) Description 02/04/[address] [phone] Naveed Peters MD [address] [place] [address] Chronic right-sided low back pain with right-sided sciatica Allergies Active Allergy Reactions Criticality Noted Date Comments Celecoxib Hives 12/27/1999 Latex Rash 07/11/2011 Lisinopril Cough 05/29/2014 documented as of this encounter (statuses as of 02/05/2024) Medications Aspirin 81 MG Tablet Take 1 [...] the morning. 90 Tablet 3 02/12/20 23 Active Metoprolol Succinate ER 25 MG Oral [...] to breakfast or other meds). 30 Tablet 06/24/19 24 Active Eliquis 5 MG Oral Tablet (Apixaban) Take 1 tablet by mouth twice daily 180 Tablet 09/03/19 24 Active Furosemide 20 MG Oral Tablet (Lasix)Indicatio ns:Leg swelling Take 1 Tablet by mouth daily as needed for Other (Edema). Every Thursday, Thursday and 36 Tablet 09/07/19 24 Active Amiodarone HCl 200 MG [...] Active Wegovy 0.25 MG/0.5ML Subcutaneous Solution Auto-injector (Semaglutide-[facility]) Inject 0.25 mg under the skin once a week. 2 mL 1 12/14/19 24 Active oxyCODONE HCl 5 MG Oral Tablet (Oxy IR)Indications:C hronic right-sided low back pain with right-sided sciatica Take 1.5 Tablets by mouth 2 times a day as needed for Pain, Severe. 90 Tablet 02/05/20 24 Active oxyCODONE HCl 5 MG Oral Tablet (Oxy IR)Indications:C hronic right-sided low back pain with right-sided sciatica Take 1.5 Tablets by mouth 2 times a day as needed for Pain, Severe. 90 Tablet 01/07/20 24 024 Discontin ued(Refil l) documented as of this encounter (statuses as of 02/05/2024) Active Problems Problem Noted Date Diagnosed Date [...] (01/05/2015): Statin stopped during 01/01/15 hospitalization at [facility] due to elevated LFTs Assessment [...] as of this encounter (statuses as of 02/05/2024) Resolved Problems Problem Noted Date Diagnosed Date [...] 04/01/2022 Overview (04/01/2022): Progress Notes by PATRIZIA hCaudhry-C2/11/2022 Sign when Signing Visit Hemoglobin A1C Adult [...] as of this encounter (statuses as of 02/05/2024) Immunizations Name Administration Dates Next Due COVID-19 mRNA, LNP-s, No Pre serve, 2-Dose Series ([employer]) 02/05/2021 COVID-19, MRNA-LNP, PF, 30 M CG/0.3 mL, 12 YRS AND ABOVE, IM (PFIZER-Comirnaty) 01/26/2023 Pneumococcal Conjugate Vacc, 13 Valent (Prevnar) 01/16/2016 Pneumococcal Conjugate Vacci ne, 20-valent ([id number]) 10/09/2021 Pneumococcal Polysaccharide PPV23 (Pneumovax) 12/21/2014 Season [...] Telephone Encounter - Naveed Peters MD - 02/05/2024 1:03 PM ESTSigned Prescriptions: Disp Refills oxyCODONE HCl 5 MG Oral Tablet (Oxy IR) 90 Tab*0 Sig: Take 1.5 Tablets by mouth 2 times a day as needed for Pain, Severe. Authorizing Provider: NAVEED PETERS * Telephone Encounter - Tiffanie Palacios [facility] - 02/05/2024 11:30 AM ESTPending Prescriptions: Disp Refills oxyCODONE HCl 5 MG Oral Tablet (Oxy IR) 90 Tab*0 Sig: Take 1.5 Tablets by mouth 2 times a day as needed for Pain, Severe. * Telephone Encounter - Tiffanie Palacios [facility] - 02/05/2024 11:29 AM EST I have reviewed the patient’s controlled substance dispensing history in the Prescription Drug Monitoring Program in compliance with the [facility] regulations before prescribing a controlled substance. PDMP checked on 02/05/2024. Pending Prescriptions: Disp Refills oxyCODONE HCl 5 MG Oral Tablet (Oxy IR) 90 Tab*0 Sig: Take 1.5 Tablets by mouth 2 times a day as needed for Pain, Severe. Last Visit: 12/07/2023 (in office), 04/02/2023 (telemedicine) Next Visit: Visit date not found Date medication was last filled: 01/06 Date medication is due for refill: 02/04 Pharmacy: [facility] [id number] Is this request for a controlled substance? [...] Results Review. Please approve if appropriate. Thanks, Tiffanie Palacios, PharmD Clinical Pharmacist [facility] ([facility]) [phone] 02/05/2024 11:29 AM documented in this encounter Plan of Treatment Upcoming Encounters Date Type Department Care Team (Late st Contact Info) Description 02/11/2024 2:30 PM EST Imaging Radiology [address], [place] 132 [place] [address] 02/23/2024 3:30 PM EST Office Visit Cardiology, [facility] 132 [place] [address] Yulia Almonte CRNP [address] [place] [address] 03/10/2024 9:40 AM EST [facility] [place] [phone] Naveed Peters MD 226 [facility] [place] [address] Scheduled Procedures Name Priority Associated Diagnoses Date/Ti [...] chronic kidney disease ([facility]) Tachy-jess syndrome ([facility]) Sinoatrial node dysfunction Cardiac pacemaker in [...] right-sided low back pain with right-sided sciatica documented in this encounter Advance Directives * [...] First Alternate Health Care Agent Care Teams Chromium Plater Relationship Specialty Start Date End Date Naveed Peters MD 132 [place] [address] PCP - General Internal Medicine 12/15/23 documented as of this encounter
--- OUTSIDE RECORDS SUMMARY | 2024-06-16 20:33 | External Medical Summary | Summary of Care ---
Author Name Unknown Organization [facility] Address [address] [place] [place] [place] [address] Phone [phone] Care Team Providers Care Fire Department Marine Engineer Name Role Phone Naveed Peters MD Primary Care Provider [phone] Reason for Visit * Reason Onset Date Comments Medication Refill 02/29/2024 Encounter Details Date Type Department Care Team (Late st Contact Info) Description 02/29/2024 Refill [facility] [address] [facility] [place] [address] Naveed Peters MD 226 [place] [address] Leg swelling Allergies Active Allergy Reactions Criticality Noted Date Comments Celecoxib Hives 12/27/1999 Latex Rash 07/11/2011 Lisinopril Cough 05/29/2014 documented as of this encounter (statuses as of 03/02/2024) Medications Aspirin 81 MG Tablet Take 1 [...] Active Wegovy 0.25 MG/0.5ML Subcutaneous Solution Auto-injector (Semaglutide-[facility]) Inject 0.25 mg under the [...] and 36 Tablet 1 03/02/19 25 Active Furosemide 20 MG Oral Tablet (Lasix)Indicatio ns:Leg swelling Take 1 Tablet by mouth daily as needed for Other (Edema). Every Thursday, Thursday and 36 Tablet 1 09/07/19 24 025 Discontin ued(Refil l) documented as of this encounter (statuses as of 03/02/2024) Active Problems Problem Noted Date Diagnosed Date [...] (01/05/2015): Statin stopped during 01/01/15 hospitalization at [facility] due to elevated LFTs Assessment & [...] as of this encounter (statuses as of 03/02/2024) Resolved Problems Problem Noted Date Diagnosed Date [...] as of this encounter (statuses as of 03/02/2024) Immunizations Name Administration Dates Next Due COVID-19 mRNA, LNP-s, No Pre serve, 2-Dose Series (Pi[employer]) 02/05/2021 COVID-19, MRNA-LNP, PF, 30 M CG/0.3 mL, 12 YRS AND ABOVE, IM ([employer]-Comirnat) 01/26/2023 Pneumococcal Conjugate Vacc, 13 Valent (Prevnar) 01/16/2016 Pneumococcal Conjugate Vacci ne, 20-valent ([id number]) 10/09/2021 Pneumococcal Polysaccharide PPV23 (Pneumovax) 12/21/2014 Season [...] encounter Miscellaneous Notes * Telephone Encounter - Kirsten Richard DO - 03/02/2024 11:11 AM ESTSigned Prescriptions: Disp Refills Furosemide 20 MG Oral Tablet (Lasix) 36 Tab*1 Sig: Take 1 Tablet by mouth daily as needed for Other (Edema). Every Thursday, Thursday and Authorizing Provider: KIRSTEN RICHARD * Telephone Encounter - Edgar Ruth OSA - 02/29/2024 3:31 PM EST Did you pend patient's preferred pharmacy and medication before forwarding?yes [facility] Pending Prescriptions: Disp Refills Furosemide 20 MG Oral Tablet (Lasix) 36 Tab*1 Sig: Take 1 Tablet by mouth daily as needed for Other (Edema). Every Thursday, Thursday and Last Visit: Visit date not found (in office), Visit date not found (telemedicine) Next Visit: 03/10/2024 If no future appointments scheduled, and last appointment is greater than a year ago, please schedule patient for a follow-up appointment Last date the medication was ordered: 09/07/23 Is this request for a controlled substance?No [...] Info) Description 03/10/2024 9:40 AM EST Telemedicine [facility] [address] [place] [phone] Naveed Peters MD 226 [place] [address] 04/26/2024 3:30 PM EDT Office Visit Cardiology, [facility] [address] [address] Yulia Almonte CRNP [address] [place] [address] 05/05/2024 3:30 PM EDT Imaging Radiology [facility]st [facility] [address] [place] [phone] 07/07/2024 11:00 AM EDT Hospital Encounter OR [facility], Operating Room, [facility] - 4th Floor [address] [place] [phone] Jong Myers, DO [address] [place] [address] 07/07/2024 11:00 AM EDT - 07/07/2024 11:41 AM EDT Surgery OR [facility], Operating Room, [facility] - 4th Floor [address] [place] [phone] Jong Myers, DO [address] [place] [address] COLONOSCOPY FLEXIBLE PROXIMAL DIAGNOSTIC Scheduled Procedures Name [...] in adult, unspecified whether serious comorbidity present ([facility]) Chronic kidney disease (CKD), stage II (mild) Chronic kidney disease, Stage II (mild) Leg swelling Swelling of limb Personal history of colonic polyps documented in [...] Alternate Health Care Agent Care Teams Fire Department Marine Engineer Relationship Specialty Start Date End Date Naveed Peters MD [address] [place] [address] PCP - General Internal Medicine 12/15/23 documented as of this encounter
--- OUTSIDE RECORDS SUMMARY | 2024-06-16 20:33 | External Medical Summary | Summary of Care ---
Author Name Unknown Organization [facility] Address [address] [facility] [place] [address] Phone [phone] Care Team Providers Care Farm Field Manager Name Role Phone Naveed Peters MD Primary Care Provider [phone] Reason for Visit * Reason Onset Date Comments Medication Refill 02/21/2024 Encounter Details Date Type Department Care Team (Late st Contact Info) Description 02/21/2024 Refill [facility] [address] [place] [address] Irish Richard, 226 [place] [address] Allergies Active Allergy Reactions Criticality Noted Date Comments Celecoxib Hives 12/27/1999 Latex Rash 07/11/2011 Lisinopril Cough 05/29/2014 documented as of this encounter (statuses as of 02/22/2024) Medications Aspirin 81 MG Tablet Take 1 [...] Thursday and 36 Tablet 09/07/19 24 Active Vitamin B-12 500 MCG Oral Tablet (vitamin B-12) Take 1 Tablet by mouth in the morning. Active Wegovy 0.25 MG/0.5ML Subcutaneous Solution Auto-injector (Semaglutide-[facility]) Inject 0.25 mg under the skin [...] BEDTIME 217 Capsule 5 02/21/19 25 Active Gabapentin 100 MG Oral Capsule (Neurontin) TAKE 2 CAPSULES BY MOUTH IN THE MORNING 2 AT NOON AND 3 AT BEDTIME 217 Capsule 11/30/19 24 025 Discontin ued(Refil l) documented as of this encounter (statuses as of 02/22/2024) Active Problems Problem Noted Date Diagnosed Date [...] can see ENT. She voiced understanding. Old [place] (myocardial infarction) 02/10/2018 Personal history of pulmonary embolism 09/26/201 8 Assessment & Plan (06/07/2021 1:08 PM [...] (01/05/2015): Statin stopped during 01/01/[address] [facility] due to elevated LFTs Assessment & [...] as of this encounter (statuses as of 02/22/2024) Resolved Problems Problem Noted Date Diagnosed Date [...] as of this encounter (statuses as of 02/22/2024) Immunizations Name Administration Dates Next Due COVID-19 mRNA, LNP-s, No Pre serve, 2-Dose Series (Acarix) 02/05/2021 COVID-19, MRNA-LNP, PF, 30 M CG/0.3 mL, 12 YRS AND ABOVE, IM ([employer]-Comirnat) 01/26/2023 Pneumococcal Conjugate Vacc, 13 Valent (Prevnar) 01/16/2016 Pneumococcal Conjugate Vacci ne, 20-valent ([id number]) 10/09/2021 Pneumococcal Polysaccharide PPV23 (Pneumovax) 12/21/2014 Season [...] Assessment Author No 11/21/2015 12:20 AM EDT Jose, Nancy G, RN documented as of this encounter Mental Status * Because of a physical, mental, or emotional condition, do you have serious difficulty concentrating, remembering, or making decisions? (5 years old or older) Answer Entry Date Author No 11/21/2015 12:20 AM Nancy Euceda RN documented in this encounter Miscellaneous Notes * Telephone Encounter - Naveed Peters MD - 02/22/2024 10:53 AM ESTSigned Prescriptions: Disp Refills Gabapentin 100 MG Oral Capsule (Neurontin) 217 Ca*5 Sig: TAKE 2 CAPSULES BY MOUTH IN THE MORNING 2 AT NOON AND 3 AT BEDTIME Authorizing Provider: NAVEED PETERS * Telephone Encounter - Sherly Olivo LPN - 02/22/2024 10:52 AM ESTPending Prescriptions: Disp Refills Gabapentin 100 MG Oral Capsule (Neurontin) 217 Ca*0 Sig: TAKE 2 CAPSULES BY MOUTH IN THE MORNING 2 AT NOON AND 3 AT BEDTIME * Telephone Encounter - Donna Sanders - 02/21/2024 1:06 PM ESTPending Prescriptions: Disp Refills Gabapentin 100 MG Oral Capsule (Neurontin) 217 Ca*0 Sig: TAKE 2CAPSULES BY MOUTH IN THE MORNING 2 AT NOON AND 3 AT BEDTIME documented in this encounter Plan of Treatment Upcoming Encounters Date Type Department Care Team (Latest Contact Info) Description 03/10/2024 9:40 AM EST Telemedicine [facility] Kul[facility] Anton [address] [place] [phone] Naveed Peters MD [address] [place] [address] 05/05/2024 3:30 PM EDT Imaging Radiology [facility] 1st [facility] [address] [place] [address] 07/07/2024 11:00 AM EDT Hospital Encounter OR [facility], Operating Room, [facility] Floor [address] [place] [phone] Jong Myers, DO [address] [place] [address] 07/07/2024 11:00 AM EDT - 07/07/2024 11:41 AM EDT Surgery OR [facility], Operating Room, [facility] Floor [address] [place] [phone] Jong Myers, DO [address] [place] [address] COLONOSCOPY FLEXIBLE PROXIMAL DIAGNOSTIC Scheduled Procedures Name [...] Agents on File Name Relationship Healthcare Agent [facility] Communication Drew Banerjee Adult Child First Alternate Health Care Agent Care Teams Farm Field Manager Relationship Specialty Start Date End Date Naveed Peters MD [address] [place] [address] PCP - General Internal Medicine 12/15/23 documented as of this encounter
--- OUTSIDE RECORDS SUMMARY | 2024-06-16 20:34 | External Medical Summary | Summary of Care ---
Author Name Unknown Organization [facility] Address [address] [place] [address] Phone [phone] Care Team Providers Care Environmental Permitting Specialist Name Role Phone Naveed Peters MD Primary Care Provider [phone] Reason for Visit * Reason Onset Date Comments Medication Refill 01/04/2024 Encounter Details Date Type Department Care Team (Late st Contact Info) Description 01/04/2024 Refill [facility] [address] [place] [address] Naveed Peters MD [address] [place] [address] Chronic right-sided low back pain with right-sided sciatica Allergies Active Allergy Reactions Criticality Noted Date Comments Celecoxib Hives 12/27/1999 Latex Rash 07/11/2011 Lisinopril Cough 05/29/2014 documented as of this encounter (statuses as of 01/07/2024) Medications Aspirin 81 MG Tablet Take 1 [...] Active Wegovy 0.25 MG/0.5ML Subcutaneous Solution Auto-injector (Semaglutide-[facility]) Inject 0.25 mg under the skin once a week. 2 mL 1 12/14/19 24 Active oxyCODONE HCl 5 MG Oral Tablet (Oxy IR)Indications:C hronic right-sided low back pain with right-sided sciatica Take 1.5 Tablets by mouth 2 times a day as needed for Pain, Severe. 90 Tablet 01/07/20 24 Active oxyCODONE HCl 5 MG Oral Tablet (Oxy IR)Indications:C hronic right-sided low back pain with right-sided sciatica Take 1.5 Tablets by mouth 2 times a day as needed for Pain, Severe. 90 Tablet 12/07/19 24 024 Discontin ued(Refil l) documented as of this encounter (statuses as of 01/07/2024) Active Problems Problem Noted Date Diagnosed Date [...] as of this encounter (statuses as of 01/07/2024) Resolved Problems Problem Noted Date Diagnosed Date [...] as of this encounter (statuses as of 01/07/2024) Immunizations Name Administration Dates Next Due COVID-19 mRNA, LNP-s, No Pre serve, 2-Dose Series (Shopcliq) 02/05/2021 COVID-19, MRNA-LNP, PF, 30 M CG/0.3 mL, 12 YRS AND ABOVE, IM (PFIZER-Comirnaty) 01/26/2023 Pneumococcal Conjugate Vacc, 13 Valent (Prevnar) 01/16/2016 Pneumococcal Conjugate Vacci ne, 20-valent ([id number]) 10/09/2021 Pneumococcal Polysaccharide PPV23 (Pneumovax) 12/21/2014 Season [...] Telephone Encounter - Naveed Peters MD - 01/07/2024 9:04 AM ESTSigned Prescriptions: Disp Refills oxyCODONE HCl 5 MG Oral Tablet (Oxy IR) 90 Tab*0 Sig: Take 1.5 Tablets by mouth 2 times a day as needed for Pain, Severe. Authorizing Provider: NAVEED PETERS * Telephone Encounter - Evelyn Adams RPh - 01/05/2024 3:54 PM ESTPending Prescriptions: Disp Refills oxyCODONE HCl 5 MG Oral Tablet (Oxy IR) 90 Tab*0 Sig: Take 1.5 Tablets by mouth 2 times a day as needed for Pain, Severe. * Telephone Encounter - Evelyn Adams RPh - 01/05/2024 3:54 PM EST I have reviewed the patient’s controlled substance dispensing history in the Prescription Drug Monitoring Program in compliance with the [facility] regulations before prescribing a controlled substance. PDMP checked on 01/05/2024. Pending Prescriptions: Disp Refills oxyCODONE HCl 5 MG Oral Tablet (Oxy IR) 90 Tab*0 Sig: Take 1.5 Tablets by mouth 2 times a day as needed for Pain, Severe. Last Visit: 12/07/2023 (in office), 04/02/2023 (telemedicine) Next Visit: Visit date not found Date medication was last filled: 12/07/23 Date medication is due for refill: 01/05/24 Pharmacy: [facility] [address] [address] IVAN ACHARYA Is this request for a [...] Clinical Pharmacist [facility] ([facility]) [phone] 01/05/2024, 3:54 PM documented in this encounter Plan of Treatment Upcoming Encounters Date Type Department Care Team (Late st Contact Info) Description 02/04/2024 2:30 PM EST Imaging Radiology [address], [place] [address] [facility] [place] [address] 02/23/2024 3:30 PM EST Office Visit Cardiology, [facility] [address] [place] [address] Yulia Almonte CRNP [address] [place] [address] 03/10/2024 9:40 AM EST Telemedicine [facility] [address] [facility] [phone] Naveed Peters [facility] [address] [facility] [address] Scheduled Procedures Name Priority Associated Diagnoses Date/Ti [...] and stage 3a chronic kidney disease ([facility]) Tachy-jess syndrome ([facility]) Sinoatrial node dysfunction Cardiac pacemaker in situ Personal history of pulmonary embolism Chronic low back pain, unspecified back pain laterality, unspecified whether sciatica present Dysfunction of both eustachian tubes Dysfunction of Eustachian tube Obesity, morbid (more than 100 lbs over ideal weight or BMI > 40) ([facility]) Morbid obesity Chronic bilateral low back pain with bilateral sciatica- Primary Cardiac pacemaker in situ Hypertensive heart and kidney disease with chronic diastolic congestive heart failure and stage 3a chronic kidney disease ([facility]) Paroxysmal A-fib ([facility]) Atrial fibrillation Hypothyroidism, unspecified type Gastroesophageal reflux disease without esophagitis Esophageal reflux Major depressive disorder, recurrent, moderate (HCC) Major depressive disorder, recurrent episode, moderate Paroxysmal A-fib ([facility])- Primary Atrial fibrillation Major depressive disorder, recurrent, moderate (HCC) Major depressive disorder, recurrent episode, moderate PAF (paroxysmal atrial fibrillation) ([facility]) Atrial fibrillation Essential (primary) hypertension [...] First Alternate Health Care Agent Care Teams Environmental Permitting Specialist Relationship Specialty Start Date End Date Naveed Peters MD [address] [place] [address] PCP - General Internal Medicine 12/15/23 documented as of this encounter
--- OUTSIDE RECORDS SUMMARY | 2024-06-16 20:34 | External Medical Summary | Summary of Care ---
Author Name Unknown Organization [facility] Address [address] [place] [address] Phone [phone] Care Team Providers Care Administrative Accountant Name Role Phone Naveed Peters MD Primary Care Provider [phone] Encounter Details Date Type Department Care Team (Late st Contact Info) Description 01/11/2024 Orders Only Outcomes Research Department [address] [place] [address] Prachi Catalan CHRA [facility] Research Other*[id number] Allergies Active Allergy Reactions Criticality Noted Date Comments Celecoxib Hives 12/27/1999 Latex Rash 07/11/2011 Lisinopril Cough 05/29/2014 documented as of this encounter (statuses as of 01/11/2024) Medications Aspirin 81 MG Tablet Take 1 [...] Active Wegovy 0.25 MG/0.5ML Subcutaneous Solution Auto-injector (Semaglutide-[facility]) Inject 0.25 mg under the skin once a week. 2 mL 1 Active oxyCODONE HCl 5 MG Oral Tablet (Oxy IR)Indications:C hronic right-sided low back pain with right-sided sciatica Take 1.5 Tablets by mouth 2 times a day as needed for Pain, Severe. 90 Tablet 4 Active documented as of this encounter (statuses as of 01/11/2024) Active Problems Problem Noted Date Diagnosed Date [...] can see ENT. She voiced understanding. Old IL (myocardial infarction) 02/10/2018 Personal history of pulmonary [...] (01/05/2015): Statin stopped during 01/01/15 hospitalization at [facility] due to elevated LFTs Assessment & [...] as of this encounter (statuses as of 01/11/2024) Resolved Problems Problem Noted Date Diagnosed Date [...] as of this encounter (statuses as of 01/11/2024) Immunizations Name Administration Dates Next Due COVID-19 mRNA, LNP-s, No Pre serve, 2-Dose Series ([employer]) 02/05/2021 COVID-19, MRNA-LNP, PF, 30 M CG/0.3 mL, 12 YRS AND ABOVE, IM (Gnammo-[facility]) 01/26/2023 Pneumococcal Conjugate Vacc, 13 Valent (Prevnar) 01/16/2016 Pneumococcal Conjugate Vacci ne, 20-valent ([id number]) 10/09/2021 Pneumococcal Polysaccharide PPV23 (Pneumovax) 12/21/2014 Season [...] Description 02/04/2024 2:30 PM EST Imaging Radiology [facility] [facility] [address] [facility] [place] [address] 02/23/2024 3:30 PM EST Office Visit Cardiology, [facility] [address] [facility] [place] [address] Yulia Almonte CRNP [address] [place] [address] 03/10/2024 9:40 AM EST Telemedicine Family Practice, [facility] [address] [place] [phone] Naveed Peters MD [address] [place] [facility] [place] [address] Scheduled Orders Name Type Priority Associated Diagnoses Orde r Schedule MYCODE SUBSEQUENT ADULT Lab Routine MyCode Research Other*[id number] Every 6 Months for 2 Occurrences starting 01/11/2024 until 01/30/2025 Scheduled Procedures Name Priority Associated Diagnoses Date/Ti [...] adult, unspecified whether serious comorbidity present ([facility]) Chronic kidney disease (CKD), stage II (mild) Chronic kidney disease, Stage II (mild) MyCode Research Other*[id number] documented in this encounter Advance Directives * [...] Agents on File Name Relationship Healthcare Agent [facility] Communication Drew Banerjee Adult Child First Alternate Health Care Agent Care Teams Administrative Accountant Relationship Specialty Start Date End Date Naveed Peters MD [address] [place] [address] PCP - General Internal Medicine 12/15/23 documented as of this encounter
[2024-06-16] MEDS ORDERED: FUROSEMIDE 20 MG TAB PO PRN (21:32)
[2024-06-16] MEDS ORDERED: ONDANSETRON INJ 2 MG/ML 2 ML VIAL IV PRN (21:32)
[2024-06-16] MEDS: oxyCODONE HCL IR 5 MG TAB (IMMEDIATE RELEASE) PO PRN (21:56)
[2024-06-16] MEDS ORDERED: methylPREDNISolone 40 MG in SYRINGE 0 ML IV ONE (22:00)
[2024-06-16] MEDS: ATORVASTATIN 40 MG TAB PO SCH (23:06)
[2024-06-16] MEDS: GABAPENTIN 100 MG CAP PO SCH (23:06)
[2024-06-16] MEDS: HEPARIN SOD 5,000 UNIT/0.5 ML VIAL SQ SCH (23:06)
[2024-06-16] MEDS: PANTOprazole 40 MG TAB PO SCH (23:06)
[2024-06-16] MEDS: ACETAMINOPHEN 325 MG TAB PO SCH (23:06)
[2024-06-16] MEDS: ESCITALOPRAM OXALATE 20 MG TAB PO SCH (23:06)
[2024-06-16] MEDS: LIDOCAINE 5% 1 PATCH TD SCH (23:11)
[2024-06-17] MEDS: MoRPHine SULFATE 4 MG/ML 1 ML CARP\\VIAL IV PRN (00:37)
[2024-06-17] MEDS: LEVOTHYROXINE SODIUM 75 MCG TABLET PO SCH (05:58)
[2024-06-17 06:42] LABS: Hematocrit (blood only) 40.7 % (37.0-47.0); Hemoglobin 13.2 g/dl (12.0-16.0); Mean Corpuscular Hemoglobin 30.6 pg (25.0-34.0); Mean Corpuscular Hgb Conc 32.4 g/dL (32.0-36.0); Mean Corpuscular Volume 94.2 fL (80.0-100.0); Mean Platelet Volume 9.5 fL (9.4-12.4); Platelet Count 204 K/uL (130-400); RDW Coefficient of Variation 13.6 % (11.5-14.5); RDW Standard Deviation 47.5 fL (36.4-46.3); Red Blood Count 4.32 M/uL (4.20-5.40); White Blood Count 5.89 K/ul (4.8-10.8)
[2024-06-17 07:12] LABS: BUN Creatinine Ratio 20.7 (10-20); Calcium 8.9 mg/dl (8.6-10.3); Creatinine Clr Calc Pharmacy 67.4 ml/min
[2024-06-17] MEDS: CYANOCOBALAMIN (B-12) 500 MCG TABLET PO SCH (07:55)
[2024-06-17] MEDS: CHOLECALCIFEROL 25 MCG (1000 UNITS) TAB PO SCH (07:55)
[2024-06-17] MEDS: METOPROLOL SUCC 25MG EXT REL TAB PO SCH (07:56)
[2024-06-17] MEDS: methylPREDNISolone 40 MG in SYRINGE 0 ML IV ONE (07:59)
[2024-06-17] MEDS ORDERED: methylPREDNISolone 125 MG/2 ML VIAL IV ONE (09:00)
--- NOTE | 2024-06-17 10:05 | Orthopedic Consultation ---
Date of Consultation June 17, 2024 Assessment & Plan (1) Ambulatory dysfunction: Patient presented to the emergency room due to ambulatory dysfunction and worsening pain. While she does have some pathology noted above her fusion is relatively unchanged compared to her previous imaging from 2021 and 2022. I am not optimistic that any type of surgical intervention at this point is really going to make a difference in her overall mobility and would likely to decline before she starts to get better. I believe her interest to be best served with consultation through pain management to determine whether or not she is a candidate for transforaminal injection that might help give her some relief. She is going to need physical therapy while in house and possible placement or discussions with a web content & social media manager in terms of the availability of home services. I would like to see her in our office from 2 to 4 weeks from the time of discharge to review other options. History of Present Illness Attending Physician: Philipp Arrington MD History of Present Illness Patient is a pleasant 73-year-old female is well-known to our practice. 2011 she had undergone lumbar decompression fusion at L4-5. She had always had some continued pain in the back and the right leg initially and 2013 undergone a second procedure to remove the hardware at L4-5 and continued fusion from L4-S1. She is always had some degree of lower back and intermittent leg symptoms. Her health has continued to decline. She has a pacemaker in place she has obstructive sleep apnea as well as heart disease. Over the past month and a half she developed increasing pain in the lower portion of her back and pain that is affecting the left leg it started in the knee and started to expand up into the thigh and down into the knapp. It does not clearly go down to the foot. She lives by herself and is having a hard time caring for herself. She presented to the emergency room due to increasing pain and difficulties with mobilization. She has not had any change in bladder or bowel function. In terms of treatment she has not had any recent physical therapy or pain management. Allergies Allergy/AdvReac Type Severity Reaction Status Date / Time celecoxib Allergy Intermediate Hives Verified 06/16/24 16:47 latex Allergy Intermediate RASH Verified 06/16/24 16:47 lisinopril AdvReac Intermediate Cough Verified 06/16/24 16:47 Home Medications Medication Instructions Recorded Confirmed Type aspirin 81 mg tablet,delayed 81 mg PO QAM 10/22/17 06/16/24 History release (Vonda Low Dose Aspirin) cholecalciferol (vitamin D3) 25 1,000 units PO QAM 10/22/17 06/16/24 History mcg (1,000 unit) capsule cyanocobalamin (vitamin B-12) 1,000 mcg sublingual QAM 10/22/17 06/16/24 History 1,000 mcg sublingual tablet losartan 100 mg tablet 100 mg PO QAM 10/22/17 06/16/24 History amiodarone 200 mg tablet 200 mg PO QAM 12/02/19 06/16/24 History atorvastatin 40 mg tablet (Lipitor) 40 mg PO HS 12/02/19 06/16/24 History metoprolol succinate 25 mg 25 mg PO QAM 12/02/19 06/16/24 History tablet,extended release 24 hr escitalopram oxalate 20 mg tablet 20 mg PO QPM 07/12/20 06/16/24 History fluticasone propionate 50 2 spray intranasal DAILY PRN 05/19/21 06/16/24 History mcg/actuation nasal Congestion spray,suspension apixaban 5 mg tablet (Eliquis) 5 mg PO BID #60 tabs 09/10/21 06/16/24 Rx omeprazole 20 mg capsule,delayed 40 mg (2 x 20 mg) PO AMHS #30 caps 09/10/21 06/16/24 Rx release sennosides 8.6 mg-docusate sodium 1 tab PO QAM PRN constipation #30 09/10/21 06/16/24 Rx 50 mg tablet (Senokot-S) tabs acetaminophen 325 mg tablet 650 mg (2 x 325 mg) PO Q4H PRN 10/31/21 06/16/24 Rx pain #30 tabs diclofenac sodium 1 % topical gel 1 g EXT TID #30 grams 04/03/22 06/16/24 Rx (Voltaren Arthritis Pain) meclizine 25 mg tablet 25 mg PO TID #30 tabs 04/03/22 06/16/24 Rx gabapentin 100 mg capsule 200 mg PO TID 07/02/22 06/16/24 History amlodipine 5 mg tablet 5 mg PO QAM 06/16/24 06/16/24 History furosemide 20 mg tablet (Lasix) 20 mg PO 3XWK PRN edema 06/16/24 06/16/24 History levothyroxine 75 mcg tablet 75 mcg PO DAILYBB 06/16/24 06/16/24 History oxycodone 5 mg tablet 7.5 mg PO BID PRN Severe Pain 06/16/24 06/16/24 History (Scale Score 7-10) semaglutide (weight loss) 0.5 0.5 mg subcut WK 06/16/24 06/16/24 History mg/0.5 mL subcutaneous pen injector (Wegovy) Patient History Medical History (Updated 06/16/24 @ 20:51 by TEA Maria) Back pain Acute hip pain Dizziness Back pain Hypokalemia Anemia Current use of fci anticoagulation Anemia GI bleed GI bleed Black stool Otitis media Acute hypokalemia Elevated brain natriuretic peptide (BNP) level Nausea vomiting and diarrhea Community acquired pneumonia Flu-like symptoms Chronic anticoagulation H/O cardiac pacemaker Atrial fibrillation, controlled JALEN (obstructive sleep apnea) Hypertension Elevated troponin Atypical chest pain Precordial chest pain Chest pain Abdominal pain Melanotic stools GI bleed Melena Takotsubo cardiomyopathy NSTEMI (non-ST elevated myocardial infarction) H/O cholecystitis H/O cholecystitis Obesity JALEN (obstructive sleep apnea) Hx pulmonary embolism 2014 HTN (hypertension) Paroxysmal atrial fibrillation Atrial fibrillation Paroxysmal atrial fibrillation, on rhythm control strategy with dofetilide, Coumadin (entered by Dr Borges 10/22/17) Surgical History (Updated 06/16/24 @ 18:32 by TEA Maria) Hx of cardiac catheterization Angiographically normal coronary arteries, 10/22/17, [facility]. History, echocardiogram, cardiac catheterization data consistent with atypical presentation of stress-induced cardiomyopathy with normal apical wall motion, and hypokinesis to akinesis of the basal left ventricular myocardial segments H/O wisdom tooth extraction H/O carpal tunnel repair H/O: hysterectomy Hx of cardiac catheterization H/O carpal tunnel repair H/O: hysterectomy Family History Father , age 62 of an DE Myocardial infarction, Onset Age: 62 Brother Myocardial infarction, Onset Age: 68 Mother , age 65 of a stroke Stroke Other Diabetes Hypertension Social History Smoking Status: Never smoker Second Hand Exposure: No; Do You Dip or Chew Tobacco: No; Hx Alcohol Use: No Hx Substance Use: No Preferred Language: Luxembourgish Communication Ability: Effective Visual Impairment: Limited Hearing Ability: Normal Sports Doctor Required: No Beliefs That Will Affect Care: None marital status: Single Current Living Situation: Alone Current Living Situation Comment: apartment current occupational status: retired 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 She is alert and oriented. She answers questions appropriately. Her visual mackenzie are grossly intact. There is no facial droop. Her upper and lower motor exams reveal no focal atrophy or strength 5 out of 5 to detailed muscle testing without exception. Sensations intact to light touch proprioception is also intact she has full range of motion hips and knees. Her calves are supple nontender her abdomen soft and nontender. Cardiovascular exam reveals no gross abnormalities respirations are smooth and unlabored. Results & Data Vital Signs (Past 12 Hours) Vital Signs Temp Pulse Pulse Resp BP Pulse Ox O2 Del Method 06/17/24 07:41 36.5 C 71 17 123/69 93 Room Air 06/17/24 02:18 72 15 97 06/16/24 23:21 66 16 93 06/16/24 22:05 Nasal Cannula 06/16/24 22:05 36.6 C 70 16 168/83 H 98 Room Air O2 Flow Rate 06/17/24 07:41 06/17/24 02:18 2 06/16/24 23:21 2 06/16/24 22:05 06/16/24 22:[address] scan of the lumbar spine was reviewed. This reveals instrumentation in place from L4 to the sacrum. There is no evidence of hardware failure. The fusion appears to be solid. There is facet arthropathy which is producing mild at best foraminal narrowing at L3-4 above her fusion. No fractures are noted. No high- grade stenosis or large disc herniations are noted.
[2024-06-17] MEDS: amLODIPine BESYLATE 5 MG TAB PO SCH (11:07)
[2024-06-17] MEDS: LOSARTAN POTASSIUM 50 MG TAB PO SCH (11:07)
[2024-06-17] MEDS: AMIODARONE 200 MG TAB PO SCH (11:07)
[2024-06-17] MEDS: ASPIRIN 81 MG ECTAB PO SCH (11:07)
--- NOTE | 2024-06-17 14:26 | Hospitalist Progress Note ---
Date of Service June 17, 2024 Assessment & Plan (1) Spinal stenosis of lumbar region with radiculopathy: (2) H/O lumbosacral spine surgery: (3) Ambulatory dysfunction: (4) Hypoxia: (5) JALEN (obstructive sleep apnea): (6) Paroxysmal A-fib: (7) HTN (hypertension): (8) (HFpEF) heart failure with preserved ejection fraction: (9) CAD (coronary artery disease): (10) HLD (hyperlipidemia): (11) Hypothyroidism: (12) Depression: (13) GERD (gastroesophageal reflux disease): Plan 73 year old female with PMH significant for paroxysmal A fib, HTN, HFpEF, CAD. 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 Spinal stenosis of lumbar region with radiculopathy s/p L4-S1 decompression and fusion Lumbar spine CT revealed no fracture or subluxation; hardware from fusion intact; mild to moderate multilevel neural foraminal stenosis Hip and pelvis xray revealed moderate bilateral osteoarthritis of hips Orthospine evaluated, likely patient will benefit from nonsurgical management. Pain management consult, await recommendation. PT/OT, patient will likely need rehab. Continue pain management, bowel regimen. c/w Lidocaine patch and heat application Ambulatory dysfunction:Likely due to back pain.PT/OT consults Hypoxia JALEN Patient 88% on RA while sleeping in ED Likely due to JALEN or post morphine or obesity hypoventilation syndrome Continue CPAP qhs PAF, HTN, HFpEF, CAD, HLD Patient follows with Cardiology Dr. Frias every 6 months (last seen 05/24/2024) Cardiac conditions stable Continue amiodarone for A fib - holding eliquis for possible epidural injection (await pain mx eval) - resume elodia if no procedure Continue amlodipine, baby aspirin, atorvastatin, metoprolol, losartan for HF /CAD/HTN/HLD Hypothyroidism:Continue levothyroxine Depression:Continue escitalopram GERD:Continue omeprazole Venous insufficiency:Continue lasix 3x/week DVT Prophylaxis: hold incase pain mx decides for epidural injection. Code Status: FULL CODE - As per discussion at bedside with the patient. PCP: Dr Naveed Peters Admission and Anticipated Discharge Date Admission Date: June 16, 2024 Subjective Patient was seen and examined at bedside. Patient was sitting up in chair, on room air, NAD, resting comfortably. Patient denies any bowel or bladder incontinence. Patient reports eating okay and moving bowels okay. Patient reports some improvement in low back pain with pain medication. Patient denies other review of symptoms. Physical Exam Physical Exam: General/Psych: WD/WN, sitting up in bed, NAD, conversing easily, euthymic affect Head: normocephalic, atraumatic Eyes: normal inspection, PERRL, conjunctivae pink, anicteric sclerae ENT: external ear and nose normal, oropharynx normal Neck: normal visual inspection, trachea midline, no thyromegaly Respiratory: normal respiratory effort, lungs clear to auscultation, no wheeze/rales/rhonchi, no accessory muscle use Cardiovascular: regular rate and rhythm, no murmur/rub/gallop, no JVD Extremities: no cyanosis or clubbing, normal peripheral pulses, no BLE edema, compression stockings in place Abdomen/GI: normal bowel sounds, soft, nontender, no hepatosplenomegaly Neurologic/MSK: A+Ox3, motor strength 5/5, moves all extremities, pain on palpation of low back and left hip Skin: no rashes, normal color, warm and dry Results & Data Results & Data Vital Signs (Past 12 Hours) Vital Signs Temp Pulse Resp BP Pulse Ox O2 Del Method 06/17/24 13:19 36.5 C 64 17 132/71 96 Room Air 06/17/24 07:41 36.5 C 71 17 123/69 93 Room Air
--- NOTE | 2024-06-17 16:08 | Pain Management Consultation ---
Date of Consultation June 17, 2024 Assessment & Plan (1) Acute exacerbation of chronic low back pain: (2) Sacroiliitis: (3) Ambulatory dysfunction: (4) Spinal stenosis of lumbar region with radiculopathy: (5) Pacemaker: (6) Chronic anticoagulation: (7) Obesity: Plan 1. Patient presenting with acute on chronic low back pain of suspected SI joint etiology as her pain pathway is predominantly axial with some L5 distribution although patient has prior fusion at L4-S1 with CT revealing stable decompression and fusion. Would recommend bilateral SI joint injections for diagnostic/therapeutic purposes. The patient would need to be able to safely hold her Eliquis therapy for 72 hours for the procedure. This can be completed in the outpatient setting upon discharge pending conversation with her prescribing physician of Eliquis. This was discussed with patient at length and she verbalized understanding. Please update pain service for discharge planning 2. Will progress gabapentin to 300 mg 3 times daily upon this admission 3. Recommend Medrol Dosepak 4. Patient may continue with her Oxy IR and IV morphine for as needed breakthrough pain 5. Please update pain service for discharge planning purposes so patient can obtain bilateral SI joint injections in the outpatient clinic. Would need to plan for her ability to hold Eliquis for 72 hours prior to the procedure if approved by Dr. Frias. History of Present Illness Reason for Consultation: Intractable low back pain and lower extremity pain Requesting Physician: Denys Lagos PA-C Attending Physician: Philipp Arrington MD History of Present Illness Mrs. Banerjee is a 73-year-old morbidly obese white female who was admitted due to intractable low back pain with pain radiating to the left greater than right lateral leg occasionally below the knee. Patient reports a history of chronic low back pain of many years duration with prior history of lumbar spine surgery x 2 with a current L4-S1 decompression and fusion most recently 2012. She has had some chronic axial low back pain which has been increasing over the past 1.5-2 years. She has been on chronic opiate therapy during this timeframe but noted an acute increase in her pain over the past few days without known injury. She was describing difficulty positional changing from sitting to standing which led to her hospital evaluation and admission. She indicates that her pain is 80% axial in the lumbosacral region left greater than right-sided and 20% lower extremity pain radiating in the lateral thigh left greater than right sided rarely below the knee. Her pain is exacerbated with movement and positional change from sitting to standing as well as standing and ambulatory activities. She describes the pain as aching and shooting/sharp in characteristic. She reported prior history of injection therapies prior to her surgery but none since. The patient has been utilizing Oxy IR 5 mg 3 times daily chronically as prescribed by her PCP-Dr. Peters. Patient denies bowel/bladder incontinence or saddle anesthesia. Patient has significant past medical history for paroxysmal A-fib status post pacemaker implantation on chronic Eliquis therapy 5 mg twice daily currently being held in favor of heparin. Patient was evaluated by surgical team and surgery has not been recommended. Plan of care discussed with Dr. Faviola eDan. Allergies Allergy/AdvReac Type Severity Reaction Status Date / Time celecoxib Allergy Intermediate Hives Verified 06/16/24 16:47 latex Allergy Intermediate RASH Verified 06/16/24 16:47 lisinopril AdvReac Intermediate Cough Verified 06/16/24 16:47 Home Medications Medication Instructions Recorded Confirmed Type aspirin 81 mg tablet,delayed 81 mg PO QAM 10/22/17 06/16/24 History release (Vonda Low Dose Aspirin) cholecalciferol (vitamin D3) 25 1,000 units PO QAM 10/22/17 06/16/24 History mcg (1,000 unit) capsule cyanocobalamin (vitamin B-12) 1,000 mcg sublingual QA 10/22/17 06/16/24 History 1,000 mcg sublingual tablet losartan 100 mg tablet 100 mg PO QAM 10/22/17 06/16/24 History amiodarone 200 mg tablet 200 mg PO QA 12/02/19 06/16/24 History atorvastatin 40 mg tablet (Lipitor) 40 mg PO HS 12/02/19 06/16/24 History metoprolol succinate 25 mg 25 mg PO QAM 12/02/19 06/16/24 History tablet,extended release 24 hr escitalopram oxalate 20 mg tablet 20 mg PO QPM 07/12/20 06/16/24 History fluticasone propionate 50 2 spray intranasal DAILY PRN 05/19/21 06/16/24 History mcg/actuation nasal Congestion spray,suspension apixaban 5 mg tablet (Eliquis) 5 mg PO BID #60 tabs 09/10/21 06/16/24 Rx omeprazole 20 mg capsule,delayed 40 mg (2 x 20 mg) PO AMHS #30 caps 09/10/21 06/16/24 Rx release sennosides 8.6 mg-docusate sodium 1 tab PO QAM PRN constipation #30 09/10/21 06/16/24 Rx 50 mg tablet (Senokot-S) tabs acetaminophen 325 mg tablet 650 mg (2 x 325 mg) PO Q4H PRN 10/31/21 06/16/24 Rx pain #30 tabs diclofenac sodium 1 % topical gel 1 g EXT TID #30 grams 04/03/22 06/16/24 Rx (Voltaren Arthritis Pain) meclizine 25 mg tablet 25 mg PO TID #30 tabs 04/03/22 06/16/24 Rx gabapentin 100 mg capsule 200 mg PO TID 07/02/22 06/16/24 History amlodipine 5 mg tablet 5 mg PO QAM 06/16/24 06/16/24 History furosemide 20 mg tablet (Lasix) 20 mg PO 3XWK PRN edema 06/16/24 06/16/24 History levothyroxine 75 mcg tablet 75 mcg PO DAILYBB 06/16/24 06/16/24 History oxycodone 5 mg tablet 7.5 mg PO BID PRN Severe Pain 06/16/24 06/16/24 History (Scale Score 7-10) semaglutide (weight loss) 0.5 0.5 mg subcut WK 06/16/24 06/16/24 History mg/0.5 mL subcutaneous pen injector (Melanie) Patient History Medical History (Updated 06/17/24 @ 16:01 by Donaldo Palma PA-C) Back pain Acute hip pain Dizziness Back pain Hypokalemia Anemia 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 Anemia GI bleed GI bleed Black stool Otitis media Acute hypokalemia Elevated brain natriuretic peptide (BNP) level Nausea vomiting and diarrhea Community acquired pneumonia Flu-like symptoms Chronic anticoagulation H/O cardiac pacemaker Atrial fibrillation, controlled JALEN (obstructive sleep apnea) Hypertension Elevated troponin Atypical chest pain Precordial chest pain Chest pain Abdominal pain Melanotic stools GI bleed Melena Takotsubo cardiomyopathy NSTEMI (non-ST elevated myocardial infarction) H/O cholecystitis H/O cholecystitis JALEN (obstructive sleep apnea) Hx pulmonary embolism 2014 HTN (hypertension) Paroxysmal atrial fibrillation Atrial fibrillation Paroxysmal atrial fibrillation, on rhythm control strategy with dofetilide, Coumadin (entered by Dr Borges 10/22/17) Surgical History (Updated 06/16/24 @ 18:32 by TEA Maria) Hx of cardiac catheterization Angiographically normal coronary arteries, 10/22/17, [facility]. History, echocardiogram, cardiac catheterization data consistent with atypical presentation of stress-induced cardiomyopathy with normal apical wall motion, and hypokinesis to akinesis of the basal left ventricular myocardial segments H/O wisdom tooth extraction H/O carpal tunnel repair H/O: hysterectomy Hx of cardiac catheterization H/O carpal tunnel repair H/O: hysterectomy Family History Father , age 62 of an AK Myocardial infarction, Onset Age: 62 Brother Myocardial infarction, Onset Age: 68 Mother , age 65 of a stroke Stroke Other Diabetes Hypertension Social History Smoking Status: Never smoker Second Hand Exposure: No; Do You Dip or Chew Tobacco: No; Hx Alcohol Use: No Hx Substance Use: No Preferred Language: Sami Communication Ability: Effective Visual Impairment: Limited Hearing Ability: Normal Stock Turner Required: No Beliefs That Will Affect Care: None marital status: Single Current Living Situation: Alone Current Living Situation Comment: apartment current occupational status: retired 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 Speech and thought process appropriate. Mood and affect appropriate. Cognition intact. Patient morbidly obese and physically deconditioned. Head: Normocephalic and atraumatic. ENT: No evidence of nasal or oral mucosal lesions. Mucous membranes are moist. Eyes: Pupils equal round reactive to light. Neck: Supple without adenopathy and full range of motion. Abdomen: Soft and nondistended. No organomegaly. Bowel sounds active. Back/spine: Patient able to log forward towards her right side for physical examination. No overt discomfort with movement. Nontender over the midline. No focal facet joint tenderness to provocative testing. Patient is exquisitely tender over the SI joint to provocative testing bilaterally. Moderately tender throughout the gluteal region bilaterally without evidence of spasm or myoneural trigger point. Lower extremities: SLR with slight increase in lumbosacral region pain bilaterally. Sensation is intact distally to sharp and dull. Strength testing is 5/5 with dorsiflexion and plantarflexion. Slight increase in axial pain with resisted hip flexion and extension. Minimally tender over the greater trochanter bilaterally. Neurologic: Cranial nerves grossly intact. Ambulatory function not witnessed. Results (Pain Clinic) Diagnostic Review CT Findings: [place], [place] [phone] CT Scan Report Patient: JAN BANERJEE Admit Date: 06/16/24 MR#: [id number] Address1: [address] [place] [address] Acct ID:[id number] Address2: [address] Date: 1950 [facility] Zip: [place] [address] Age: 73 Location: ED Sex: F Room/Bed: Att Phy: Diagnosis: BACK AND LEG PAIN Eloisa Phy: Irish Richard DO Service Date: 06/16/24 Fam Phy: Interpreting Phy: Nav Jurado MDAdmit Phy: Ordering Phy: Terence Maldonado DO cc: ~ CT OF THE LUMBAR SPINE CLINICAL HISTORY: Low back pain radiating to left leg. COMPARISON STUDY: Lumbar spine CT October 29, 2021. CT of the abdomen and pelvis February 22, 2022. TECHNIQUE: Helical axial images of the lumbar spine were obtained. Sagittal and coronal reconstructions were viewed. Automated exposure control was utilized for the study. A dose lowering technique was utilized adhering to the principles of ALARA. FINDINGS: For purposes of numbering on this exam, the L5-S1 disc space is assign ed to axial image 275 of 481. There are stable postoperative findings consistent with L4-S1 decompression and fusion. Interbody spacers at the L4-L5 and L5-S1 levels are noted. Hardware is intact. There are no lumbar spine fractures. No osseous lesions are identified by CT. Paravertebral soft tissues are unremarkable. Central canal and neural foramen are suboptimally assessed given CT technique and artifact related to hardware. CT evidence for severe central canal stenosis. There is mild to moderate multilevel neural foraminal stenosis. IMPRESSION: 1. No acute lumbar spine fracture or subluxation. 2. Status post L4-S1 decompression and fusion. Hardware intact. Stable postoperative findings. 3. Suboptimal evaluation of the central canal and neural foramen, as described above. No CT evidence for severe central canal stenosis. Mild to moderate multilevel neural foraminal stenosis. ACT 112: Negative or not required by law. Electronically signed by: Nav Jurado M.D. 06/16/2024 3:06 PM Dictated: 06/16/24 1501 Transcribed: 06/16/24 1501 Radiology Findings: [facility], [place] [phone] XRay Report Patient: JAN BANERJEE Admit Date: 06/16/24 MR#: [id number] Address1: [address] [place] [address] Acct ID:[id number] Address2: [address] Date: 1950 [facility] Zip: [place] [address] Age: 73 Location: ED Sex: F Room/Bed: Att Phy: Diagnosis: BACK AND LEG PAIN Eloisa Phy: Naveed Peters MD Service Date: 06/16/24 Fam Phy: Interpreting Phy: Agustina Castro MDAdmit Phy: Ordering Phy: Terence Maldonado, cc: ~ XR hip LT 2V w pelvis CLINICAL HISTORY: l hip pain COMPARISON: None FINDINGS: AP pelvis and 2 additional views of the left hip demonstrate mild to moderate bilaterally symmetrical osteoarthritis. There is also some arthritic changes in the SI joints manifested by marginal sclerosis and small inferior osteophytes. This is more pronounced in the left SI joint than the right. There is no evidence of a left hip fracture or dislocation. There is no periarticular calcification. There is marginal osteophytes. There is no flattening or sclerosis of the femoral head. The patient is status post multilevel lumbar laminectomy and fusion. IMPRESSION: Moderate bilateral osteoarthritis of the hips. Bilateral arthritic changes in the SI joints left greater than right. ACT 112: Negative or not required by law. Electronically signed by: Agustina Castro M.D. 06/16/2024 3:56 PM Dictated: 06/16/24 1554 Transcribed: 06/16/24 1554
[2024-06-17] MEDS ORDERED: methylPREDNISolone 4 MG TAB, 6 DAY TAPER PO SCH (16:15)
[2024-06-17] MEDS: GABAPENTIN 300 MG CAP PO SCH (20:10)
[2024-06-17] MEDS: APIXABAN 5 MG TABLET PO SCH (20:11)
--- NOTE | 2024-06-18 01:00 | Electrocardiogram Report ---
Test Reason : Blood Pressure : */* mmHG Vent. Rate : 60 BPM Atrial Rate : 60 BPM P-R Int : 228 ms QRS Dur : 92 ms QT Int : 474 ms P-R-T Axes : * 6 -3 degrees QTcB Int : 474 ms Atrial-paced rhythm with prolonged AV conduction Low voltage QRS Cannot rule out Anterior infarct (cited on or before 02-Jul-2022) Abnormal ECG When compared with ECG of 06-Nov-2023 02:24, No significant change was found Confirmed by Tone Bhandari ([id number]) on 06/18/2024 1:00:24 AM Referred By: REFERRED SELF Confirmed By: Tone Bhandari
[2024-06-18] MEDS: methylPREDNISolone 4 MG TAB PO SCH ×2 (05:41→13:16)
[2024-06-18 06:31] LABS: Hematocrit (blood only) 38.9 % (37.0-47.0); Hemoglobin 12.8 g/dl (12.0-16.0); Mean Corpuscular Hemoglobin 31.1 pg (25.0-34.0); Mean Corpuscular Hgb Conc 32.9 g/dL (32.0-36.0); Mean Corpuscular Volume 94.4 fL (80.0-100.0); Mean Platelet Volume 9.3 fL (9.4-12.4); Platelet Count 221 K/uL (130-400); RDW Coefficient of Variation 13.8 % (11.5-14.5); RDW Standard Deviation 47.9 fL (36.4-46.3); Red Blood Count 4.12 M/uL (4.20-5.40); White Blood Count 8.85 K/ul (4.8-10.8)
[2024-06-18] MEDS: POLYETHYLENE (MIRALAX) 17 GM PACK PO PRN (11:43)
[2024-06-18] MEDS: DOCUSATE SODIUM/SENNA 50/8.6MG TAB PO PRN (11:43)
--- NOTE | 2024-06-18 16:33 | Hospitalist Progress Note ---
Date of Service June 18, 2024 Assessment & Plan (1) Spinal stenosis of lumbar region with radiculopathy: (2) H/O lumbosacral spine surgery: (3) Ambulatory dysfunction: (4) Hypoxia: (5) JALEN (obstructive sleep apnea): (6) Paroxysmal A-fib: (7) HTN (hypertension): (8) (HFpEF) heart failure with preserved ejection fraction: (9) CAD (coronary artery disease): (10) HLD (hyperlipidemia): (11) Hypothyroidism: (12) Depression: (13) GERD (gastroesophageal reflux disease): Plan 73 year old female with PMH significant for paroxysmal A fib, HTN, HFpEF, CAD. 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 Spinal stenosis of lumbar region with radiculopathy s/p L4-S1 decompression and fusion Lumbar spine CT revealed no fracture or subluxation; hardware from fusion intact; mild to moderate multilevel neural foraminal stenosis Hip and pelvis xray revealed moderate bilateral osteoarthritis of hips Orthospine evaluated, likely patient will benefit from nonsurgical management. Pain management consult, appreciate recommendation. PT/OT, patient will likely need rehab. Continue pain management, bowel regimen. c/w Lidocaine patch and heat application f/u pain mx on dc. Ambulatory dysfunction:Likely due to back pain.PT/OT consults Hypoxia JALEN Patient 88% on RA while sleeping in ED Likely due to JALEN or post morphine or obesity hypoventilation syndrome Continue CPAP qhs PAF, HTN, HFpEF, CAD, HLD Patient follows with Cardiology Dr. Frias every 6 months (last seen 05/24/2024) Cardiac conditions stable Continue amiodarone and eliquis for A fib. Continue amlodipine, baby aspirin, atorvastatin, metoprolol, losartan for HF/CAD/HTN/HLD Hypothyroidism:Continue levothyroxine Depression:Continue escitalopram GERD:Continue omeprazole Venous insufficiency:Continue lasix 3x/week DVT Prophylaxis: hold incase pain mx decides for epidural injection. Code Status: FULL CODE - As per discussion at bedside with the patient. PCP: Dr Naveed Peters Admission and Anticipated Discharge Date Admission Date: June 16, 2024 Subjective Patient was seen and examined at bedside. Patient was lying in bed, on room air, NAD, resting comfortably. Patient denies any bowel or bladder incontinence. Patient reports eating okay and moving bowels okay. Patient reports some improvement in low back pain with pain medication, now /10. Patient denies other review of symptoms. Physical Exam Physical Exam: General/Psych: WD/WN, sitting up in bed, NAD, conversing easily, euthymic affect Head: normocephalic, atraumatic Eyes: normal inspection, PERRL, conjunctivae pink, anicteric sclerae ENT: external ear and nose normal, oropharynx normal Neck: normal visual inspection, trachea midline, no thyromegaly Respiratory: normal respiratory effort, lungs clear to auscultation, no wheeze/rales/rhonchi, no accessory muscle use Cardiovascular: regular rate and rhythm, no murmur/rub/gallop, no JVD Extremities: no cyanosis or clubbing, normal peripheral pulses, no BLE edema, compression stockings in place Abdomen/GI: normal bowel sounds, soft, nontender, no hepatosplenomegaly Neurologic/MSK: A+Ox3, motor strength 5/5, moves all extremities, pain on palpation of low back and left hip Skin: no rashes, normal color, warm and dry Results & Data Results & Data Vital Signs (Past 12 Hours) Vital Signs Temp Pulse Resp BP Pulse Ox O2 Del Method 06/18/24 14:30 36.4 C L 75 18 128/73 94 Room Air 06/18/24 07:44 36.5 C 64 15 120/74 92 Room Air
[2024-06-18] MEDS: LACTULOSE SYRUP 20 GM/30 ML UDC PO PRN (16:52)
[2024-06-19] MEDS: methylPREDNISolone 4 MG TAB PO SCH ×2 (06:03→20:54)
[2024-06-19] MEDS: COUGH DROP (SUGAR FREE) LOZ 24 LOZ/1 BOX BUCCAL ONE (11:58)
--- NOTE | 2024-06-19 15:53 | Hospitalist Progress Note ---
Date of Service June 19, 2024 Assessment & Plan (1) Spinal stenosis of lumbar region with radiculopathy: (2) H/O lumbosacral spine surgery: (3) Ambulatory dysfunction: (4) Hypoxia: (5) JALEN (obstructive sleep apnea): (6) Paroxysmal A-fib: (7) HTN (hypertension): (8) (HFpEF) heart failure with preserved ejection fraction: (9) CAD (coronary artery disease): (10) HLD (hyperlipidemia): (11) Hypothyroidism: (12) Depression: (13) GERD (gastroesophageal reflux disease): Plan 73 year old female with PMH significant for paroxysmal A fib, HTN, HFpEF, CAD. 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 Spinal stenosis of lumbar region with radiculopathy s/p L4-S1 decompression and fusion Lumbar spine CT revealed no fracture or subluxation; hardware from fusion intact; mild to moderate multilevel neural foraminal stenosis Hip and pelvis xray revealed moderate bilateral osteoarthritis of hips Orthospine evaluated, likely patient will benefit from nonsurgical management. Pain management consult, appreciate recommendation. PT/OT, patient will likely need rehab. Continue pain management, bowel regimen. c/w Lidocaine patch and heat application f/u pain mx on dc. Ambulatory dysfunction:Likely due to back pain.PT/OT consults Hypoxia JALEN Patient 88% on RA while sleeping in ED Likely due to JALEN or post morphine or obesity hypoventilation syndrome Continue CPAP qhs PAF, HTN, HFpEF, CAD, HLD Patient follows with Cardiology Dr. Frias every 6 months (last seen 05/24/2024) Cardiac conditions stable Continue amiodarone and eliquis for A fib. Continue amlodipine, baby aspirin, atorvastatin, metoprolol, losartan for HF/CAD/HTN/HLD Hypothyroidism:Continue levothyroxine Depression:Continue escitalopram GERD:Continue omeprazole Venous insufficiency:Continue lasix 3x/week DVT Prophylaxis: hold incase pain mx decides for epidural injection. Code Status: FULL CODE . PCP: Dr Naveed Peters Admission and Anticipated Discharge Date Admission Date: June 16, 2024 Subjective Patient was seen and examined at bedside. Patient was sitting up in chair, on room air, NAD, resting comfortably. Patient denies any bowel or bladder incontinence. Patient reports eating okay and moving bowels okay. Patient reports slightly increased low back pain 8/10 today. Patient denies other review of symptoms. Physical Exam Physical Exam: General/Psych: WD/WN, sitting up in bed, NAD, conversing easily, euthymic affect Head: normocephalic, atraumatic Eyes: normal inspection, PERRL, conjunctivae pink, anicteric sclerae ENT: external ear and nose normal, oropharynx normal Neck: normal visual inspection, trachea midline, no thyromegaly Respiratory: normal respiratory effort, lungs clear to auscultation, no wheeze/rales/rhonchi, no accessory muscle use Cardiovascular: regular rate and rhythm, no murmur/rub/gallop, no JVD Extremities: no cyanosis or clubbing, normal peripheral pulses, no BLE edema, compression stockings in place Abdomen/GI: normal bowel sounds, soft, nontender, no hepatosplenomegaly Neurologic/MSK: A+Ox3, motor strength 5/5, moves all extremities, pain on palpation of low back and left hip Skin: no rashes, normal color, warm and dry Results & Data Results & Data Vital Signs (Past 12 Hours) Vital Signs Temp Pulse Resp BP Pulse Ox O2 Del Method 06/19/24 14:05 36.6 C 60 18 120/77 95 Room Air 06/19/24 06:55 36.5 C 60 18 116/70 92 Room Air
[2024-06-19] MEDS: LACTULOSE SYRUP 20 GM/30 ML UDC PO ONE (18:02)
[2024-06-20] MEDS: methylPREDNISolone 4 MG TAB PO SCH (06:00)
--- NOTE | 2024-06-20 14:24 | Hospitalist Progress Note ---
Date of Service June 20, 2024 Assessment & Plan (1) Spinal stenosis of lumbar region with radiculopathy: (2) H/O lumbosacral spine surgery: (3) Ambulatory dysfunction: (4) Hypoxia: (5) JALEN (obstructive sleep apnea): (6) Paroxysmal A-fib: (7) HTN (hypertension): (8) (HFpEF) heart failure with preserved ejection fraction: (9) CAD (coronary artery disease): (10) HLD (hyperlipidemia): (11) Hypothyroidism: (12) Depression: (13) GERD (gastroesophageal reflux disease): Plan 73 year old female with PMH significant for paroxysmal A fib, HTN, HFpEF, CAD. 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 Spinal stenosis of lumbar region with radiculopathy s/p L4-S1 decompression and fusion Lumbar spine CT revealed no fracture or subluxation; hardware from fusion intact; mild to moderate multilevel neural foraminal stenosis Hip and pelvis xray revealed moderate bilateral osteoarthritis of hips Orthospine evaluated, likely patient will benefit from nonsurgical management. Pain management consult, appreciate recommendation. PT/OT, patient will likely need rehab. Continue pain management, bowel regimen. increased gabapentin to 400 mg tid , add baclofen 5/5. c/w Lidocaine patch and heat application f/u pain mx on dc. Pain about same/minimal control per pt, will continue to adjut pain meds. Ambulatory dysfunction: Likely due to back pain. PT/OT consults Hypoxia JALEN Patient 88% on RA while sleeping in ED Likely due to JALEN or post morphine or obesity hypoventilation syndrome Continue CPAP qhs PAF, HTN, HFpEF, CAD, HLD Patient follows with Cardiology Dr. Frias every 6 months (last seen 05/24/2024) Cardiac conditions stable Continue amiodarone and eliquis for A fib. Continue amlodipine, baby aspirin, atorvastatin, metoprolol, losartan for HF/CAD/HTN/HLD Hypothyroidism:Continue levothyroxine Depression:Continue escitalopram GERD:Continue omeprazole Venous insufficiency:Continue lasix 3x/week DVT Prophylaxis: on eliquis Code Status: FULL CODE . PCP: Dr Naveed Peters Admission and Anticipated Discharge Date Admission Date: June 16, 2024 Subjective Patient was seen and examined at bedside. Patient was sitting up in chair, on room air, NAD, resting comfortably. Patient denies any bowel or bladder incontinence. Patient reports eating okay, hasnot moved bowel in last few days, will try enema. Patient reports slightly better low back pain but still around 8/10 today. Will increased gabapentin and add baclofen. will need heat pad. Patient denies other review of symptoms. Physical Exam Physical Exam: General/Psych: WD/WN, sitting up in bed, NAD, conversing easily, euthymic affect Head: normocephalic, atraumatic Eyes: normal inspection, PERRL, conjunctivae pink, anicteric sclerae ENT: external ear and nose normal, oropharynx normal Neck: normal visual inspection, trachea midline, no thyromegaly Respiratory: normal respiratory effort, lungs clear to auscultation, no wheeze/rales/rhonchi, no accessory muscle use Cardiovascular: regular rate and rhythm, no murmur/rub/gallop, no JVD Extremities: no cyanosis or clubbing, normal peripheral pulses, no BLE edema, compression stockings in place Abdomen/GI: normal bowel sounds, soft, nontender, no hepatosplenomegaly Neurologic/MSK: A+Ox3, motor strength 5/5, moves all extremities, pain on palpation of low back and left hip Skin: no rashes, normal color, warm and dry Results & Data Results & Data Vital Signs (Past 12 Hours) Vital Signs Temp Pulse Pulse Resp BP Pulse Ox O2 Del Method 06/20/24 13:31 36.5 C 69 18 96/61 L 93 Room Air 06/20/24 12:30 61 18 121/81 93 Room Air 06/20/24 08:26 Room Air 06/20/24 07:35 36.5 C 64 18 167/77 H Room Air 06/20/24 03:42 15 O2 Flow Rate 06/20/24 13:31 06/20/24 12:30 06/20/24 08:26 06/20/24 07:35 06/20/24 03:42 2
[2024-06-20] MEDS: SOD PHOSPHATE/SOD BIPHOSPHATE ENEMA 132 ML BTL PR PRN (17:21)
[2024-06-20] MEDS: BACLOFEN 10 MG TAB PO SCH (19:52)
[2024-06-20] MEDS: GABAPENTIN 400 MG CAP PO SCH (19:53)
[2024-06-21] MEDS: methylPREDNISolone 4 MG TAB PO SCH (05:41)
--- NOTE | 2024-06-21 12:26 | Pain Management Progress Note ---
Date of Service June 21, 2024 Assessment & Plan (1) Acute exacerbation of chronic low back pain: (2) Sacroiliitis: (3) Ambulatory dysfunction: (4) Spinal stenosis of lumbar region with radiculopathy: (5) Pacemaker: (6) Chronic anticoagulation: (7) Obesity: Plan 1. Continue to plan for outpatient SI joint injections. Once discharged the office will work towards getting clearance from her prescribing physician to hold Eliquis for 72 hours prior to the procedure. 2. Will progress gabapentin to 600 mg 3 times daily to address neuropathic pain in the lower extremities. 3. Continue Medrol Dosepak 4. Patient may continue with her Oxy IR and IV morphine for as needed breakth rough pain. She is aware that she needs to rely less on the IV morphine in preparation of discharge. 5. Continue lidocaine patches 6. I have switched baclofen to tizanidine scheduled 3 times daily. 7. Would recommend physical therapy on an outpatient basis. 8. Please contact with any further questions or concerns. Admission and Anticipated Discharge Date Admission Date: June 16, 2024 Subjective Mrs. Banerjee continues to experience 10 out of 10 low back pain. At home she was chronically taking oxycodone 7.5 mg twice daily. Inpatient she is utilizing lidocaine patches, baclofen 10 mg twice daily, oxycodone 10 mg 4 times daily, morphine 4 mg IV every 6 hours if needed, and gabapentin 400 mg 3 times daily. She states that the pain medications are diminishing her pain but only for short period of time. She states that the oxycodone is causing mild sleepiness and drowsiness as well as constipation. She has been able to have a small bowel movement yesterday but prior to that was 6 days ago. She does have Senokot and MiraLAX for constipation and and if needed Fleet enema. She has been able to get out of bed and into a chair. She has ambulated with the use of a walker to the bathroom. Physical Exam Physical Exam: GENERAL: This is a morbidly obese 73-year-old female in no acute distress. HEAD/FACE: Normocephalic and atraumatic. EYES: No drainage or conjunctival injection. ENT: Nose without bleeding or discharge. Oral mucosa moist. NECK: Full ROM without apparent pain. No swelling or masses noted. RESPIRATORY: Patient with unlabored breathing. No signs of respiratory distress. CHEST/AXILLA: Chest movement symmetrical. No deformities noted. BACK: Moves without difficulty. Well-healed surgical incision along the lumbar midline. There is hyperalgesia along the lumbosacral junction as well as over the SI joints. Mild myofascial spasm noted. No trigger points noted. SKIN: [place], warm and dry. No rash noted. MS/EXTREMITY: No swelling, no deformities. Moving extremities appropriately. NEURO: Alert and appears oriented. Speech is fluent. Cranial Nerves are grossly intact. PSYCH: Alert, pleasant, affect is calm
[2024-06-21] MEDS: GABAPENTIN 300 MG CAP PO SCH (14:00)
[2024-06-21] MEDS: tiZANidine HCL 4 MG TABLET PO SCH (14:00)
--- NOTE | 2024-06-21 14:15 | Hospitalist Progress Note ---
Date of Service June 21, 2024 Assessment & Plan (1) Spinal stenosis of lumbar region with radiculopathy: (2) H/O lumbosacral spine surgery: (3) Ambulatory dysfunction: (4) Hypoxia: (5) JALEN (obstructive sleep apnea): (6) Paroxysmal A-fib: (7) HTN (hypertension): (8) (HFpEF) heart failure with preserved ejection fraction: (9) CAD (coronary artery disease): (10) HLD (hyperlipidemia): (11) Hypothyroidism: (12) Depression: (13) GERD (gastroesophageal reflux disease): Plan 73 year old female with PMH significant for paroxysmal A fib, HTN, HFpEF, CAD. 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 Spinal stenosis of lumbar region with radiculopathy s/p L4-S1 decompression and fusion Lumbar spine CT revealed no fracture or subluxation; hardware from fusion intact; mild to moderate multilevel neural foraminal stenosis Hip and pelvis xray revealed moderate bilateral osteoarthritis of hips Orthospine evaluated, likely patient will benefit from nonsurgical management. Pain management consult, appreciate recommendation. re-evaled 06/21. PT/OT, patient will likely need rehab. Continue pain management, bowel regimen. increased gabapentin to 600 mg tid , baclofen / to tizanidine 06/21. c/w Lidocaine patch and heat application f/u pain mx on dc. Pain about same/minimal control per pt, will continue to adjut pain meds. Can't use NSAIDs, pt on blood thinner. Ambulatory dysfunction: Likely due to back pain. PT/OT consults Hypoxia JALEN Patient 88% on RA while sleeping in ED Likely due to JALEN or post morphine or obesity hypoventilation syndrome Continue CPAP qhs PAF, HTN, HFpEF, CAD, HLD Patient follows with Cardiology Dr. Frias every 6 months (last seen 05/24/2024) Cardiac conditions stable Continue amiodarone and eliquis for A fib. Continue amlodipine, baby aspirin, atorvastatin, metoprolol, losartan for HF/CAD/HTN/HLD Hypothyroidism:Continue levothyroxine Depression:Continue escitalopram GERD:Continue omeprazole Venous insufficiency:Continue lasix 3x/week DVT Prophylaxis: on eliquis Code Status: FULL CODE . PCP: Dr Naveed Peters Dispo: pt/ot, cm to assist w/ dc plan. Admission and Anticipated Discharge Date Admission Date: June 16, 2024 Subjective Patient was seen and examined at bedside. Patient was sitting up in chair, on room air, NAD, resting comfortably. Patient denies any bowel or bladder incontinence. Finally moved bowel today, c/w bowel regimen while on opiates Patient reports still with significant back and lower extremity pain affecting her activity, rediscussed with pain management who evaluated the patient again and appreciate recommendation. Patient denies other review of symptoms. Physical Exam Physical Exam: General/Psych: WD/WN, sitting up in bed, NAD, conversing easily, euthymic affect Head: normocephalic, atraumatic Eyes: normal inspection, PERRL, conjunctivae pink, anicteric sclerae ENT: external ear and nose normal, oropharynx normal Neck: normal visual inspection, trachea midline, no thyromegaly Respiratory: normal respiratory effort, lungs clear to auscultation, no wheeze/rales/rhonchi, no accessory muscle use Cardiovascular: regular rate and rhythm, no murmur/rub/gallop, no JVD Extremities: no cyanosis or clubbing, normal peripheral pulses, no BLE edema, compression stockings in place Abdomen/GI: normal bowel sounds, soft, nontender, no hepatosplenomegaly Neurologic/MSK: A+Ox3, motor strength 5/5, moves all extremities, pain on palpation of low back and left hip Skin: no rashes, normal color, warm and dry Results & Data Results & Data Vital Signs (Past 12 Hours) Vital Signs Temp Pulse Resp BP Pulse Ox O2 Del Method O2 Flow Rate 06/21/24 07:48 Room Air 06/21/24 07:15 36.5 C 64 16 146/82 H 94 Room Air 06/21/24 03:00 11 L 2
[2024-06-21] MEDS: FLUTICASONE PROPIONATE NA SPR 16 GM BTL SCH (16:36)
[2024-06-22] MEDS: POLYETHYLENE (MIRALAX) 17 GM PACK PO SCH ×2 (08:14→20:08)
[2024-06-22] MEDS: methylPREDNISolone 4 MG TAB PO SCH (08:16)
--- NOTE | 2024-06-22 15:51 | Hospitalist Progress Note ---
Date of Service June 22, 2024 Assessment & Plan (1) Spinal stenosis of lumbar region with radiculopathy: (2) H/O lumbosacral spine surgery: (3) Ambulatory dysfunction: (4) Hypoxia: (5) JALEN (obstructive sleep apnea): (6) Paroxysmal A-fib: (7) HTN (hypertension): (8) (HFpEF) heart failure with preserved ejection fraction: (9) CAD (coronary artery disease): (10) HLD (hyperlipidemia): (11) Hypothyroidism: (12) Depression: (13) GERD (gastroesophageal reflux disease): Plan 73 year old female with PMH significant for paroxysmal A fib, HTN, HFpEF, CAD. 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 Spinal stenosis of lumbar region with radiculopathy s/p L4-S1 decompression and fusion Lumbar spine CT revealed no fracture or subluxation; hardware from fusion intact; mild to moderate multilevel neural foraminal stenosis Hip and pelvis xray revealed moderate bilateral osteoarthritis of hips Orthospine evaluated, likely patient will benefit from nonsurgical management. Pain management consult, appreciate recommendation. re-evaled 06/21. PT/OT, patient will likely need rehab. Continue pain management, bowel regimen. increased gabapentin to 600 mg tid , baclofen 06/20 to tizanidine 06/21. c/w Lidocaine patch and heat application Appreciate pain management reevaluationwill have outpatient SI joint injection in the pain management we will work towards getting an appointment ,she will need to have Eliquis off for 72 hours Gabapentin has been increased to 60 mg 3 times daily., Continue Medrol Dosepak, Oxy IR and IV morphine as needed for breakthrough pain, continue lidocaine patch and baclofen has been changed to tizanidine Will continue physical therapy and discharged home in the patient is reasonably ambulant with control of pain Constipation Secondary to use of narcotic pain medications and being limited mobility Will give adequate amount of laxatives Ambulatory dysfunction: Likely due to back pain. PT/OT consults Hypoxia JALEN Patient 88% on RA while sleeping in ED Likely due to JALEN or post morphine or obesity hypoventilation syndrome Continue CPAP qhs Denies any acute shortness of breath saturating normally on room air PAF, HTN, HFpEF, CAD, HLD Patient follows with Cardiology Dr. Frias every 6 months (last seen 05/24/2024) Cardiac conditions stable Continue amiodarone and eliquis for A fib. Continue amlodipine, baby aspirin, atorvastatin, metoprolol, losartan for HF/CAD/HTN/HLD No cardiac symptoms and has been on Eliquis for A-fib Hypothyroidism:Continue levothyroxine Depression:Continue escitalopram GERD:Continue omeprazole Venous insufficiency:Continue lasix 3x/week DVT Prophylaxis: on eliquis Code Status: FULL CODE . PCP: Dr Naveed Peters Dispo: pt/ot, cm to assist w/ dc plan. Admission and Anticipated Discharge Date Admission Date: June 16, 2024 Subjective 06/22/2024 The patient was seen and examined in medical floor She has been complaining of more pain in the back that goes down to the legs Remains in bed and any movement causes more pain Still requiring intravenous pain medications at times Review of Systems Review of Systems: All systems reviewed and are unremarkable except as noted below Physical Exam Physical Exam: Lying in bed with distress due to back pain Constitutional: well developed, well nourished, + ill appearing and + obese Eyes: PERRL, conjunctivae normal, anicteric sclerae ENMT: external ear and nose normal, oropharynx normal Neck: trachea midline, no thyromegaly Respiratory: no respiratory distress Auscultation: lungs clear to auscultation bilaterally and + diminished lung sounds Cardiovascular: Rate/Rhythm: regular rate and regular rhythm; not tachycardic Heart Sounds: normal S1 and normal S2; no murmur Extremities: + edema ( trace edema bilaterally) Gastrointestinal (Abdomen): Inspection/Auscultation: + abdomen distended and normal bowel sounds Percussion/Palpation: abdomen soft; abdomen nontender Musculoskeletal: No acute arthritis involving the joint but has significant back pain Neurologic: normal touch/pain/proprioception and moves all extremities; no focal motor deficits Lymphatic: no cervical or axillary lymphadenopathy Results & Data Results & Data Vital Signs (Past 12 Hours) Vital Signs Temp Pulse Resp BP Pulse Ox O2 Del Method 06/22/24 14:12 36.5 C 60 16 105/65 94 Room Air 06/22/24 07:57 36.6 C 62 16 128/84 94 Room Air 06/22/24 07:31 Room Air Medications Administered Current Inpatient Medications Acetaminophen (Acetaminophen 325 Mg Tab) 650 mg PO QID [facility] Stop: 07/16/24 21:31 Last Admin: 06/22/24 13:03 Dose: 650 mg Amiodarone HCl (Amiodarone 200 Mg Tab) 200 mg PO QAM [facility] Stop: 07/17/24 08:59 Last Admin: 06/22/24 08:16 Dose: 200 mg Amlodipine Besylate (Amlodipine Besylate 5 Mg Tab) 5 mg PO QAM [facility] Stop: 07/17/24 08:59 Last Admin: 06/22/24 08:18 Dose: 5 mg Apixaban (Apixaban 5 Mg Tablet) 5 mg PO BID [facility] Stop: 07/17/24 21:59 Last Admin: 06/22/24 08:18 Dose: 5 mg Aspirin (Aspirin 81 Mg Ectab) 81 mg PO QAM [facility] Stop: 07/17/24 08:59 Last Admin: 06/22/24 08:15 Dose: 81 mg Atorvastatin Calcium (Atorvastatin 40 Mg Tab) 40 mg PO HS [facility] Stop: 07/16/24 21:31 Last Admin: 06/21/24 21:14 Dose: 40 mg Cyanocobalamin (Cyanocobalamin (B-12) 500 Mcg Tablet) 1,000 mcg PO QAM [facility] Stop: 07/17/24 08:59 Last Admin: 06/22/24 08:17 Dose: 1,000 mcg Escitalopram Oxalate (Escitalopram Oxalate 20 Mg Tab) 20 mg PO QPM [facility] Stop: 07/16/24 21:31 Last Admin: 06/21/24 21:19 Dose: 20 mg Fluticasone Propionate (Fluticasone Propionate Na Spr 16 Gm Btl) 2 sprays NA DAILY [facility] Stop: 07/21/24 14:29 Last Admin: 06/22/24 08:15 Dose: 2 sprays Furosemide (Furosemide 20 Mg Tab) 20 mg PO MoWeFr PRN PRN Reason: edema Stop: 07/16/24 21:31 Gabapentin (Gabapentin 300 Mg Cap) 600 mg PO TID [facility] Stop: 07/21/24 13:59 Last Admin: 06/22/24 14:16 Dose: 600 mg Levothyroxine Sodium (Levothyroxine Sodium 75 Mcg Tablet) 75 mcg PO DAILYBB [facility] Stop: 07/17/24 06:29 Last Admin: 06/22/24 05:37 Dose: 75 mcg Lidocaine (Lidocaine 5% 1 Patch) 1 patch TD QPM [facility] Stop: 07/16/24 21:31 Last Admin: 06/21/24 21:16 Dose: 1 patch Losartan Potassium (Losartan Potassium 50 Mg Tab) 100 mg PO QAM [facility] Stop: 07/17/24 08:59 Last Admin: 06/22/24 08:16 Dose: 100 mg Methylprednisolone (Methylprednisolone 4 Mg Tab) 4 mg PO 0700,2100 [facility] Stop: 06/22/24 21:01 Last Admin: 06/22/24 08:16 Dose: 4 mg Methylprednisolone (Methylprednisolone 4 Mg Tab) 4 mg PO 0700 [facility] Stop: 06/23/24 07:01 Metoprolol Succinate (Metoprolol Succ 25mg Ext Rel Tab) 25 mg PO QAM [facility] Stop: 07/17/24 08:59 Last Admin: 06/22/24 08:16 Dose: 25 mg Miscellaneous (Remove Lidoderm Patch) 1 each N/A DAILY [facility] Stop: 07/17/24 08:59 Last Admin: 06/22/24 08:19 Dose: 1 each Morphine Sulfate (Morphine Sulfate 4 Mg/Ml 1 Ml Carp\Vial) 4 mg IV Q6 PRN PRN Reason: Severe Pain (Scale 7, 8, 9,10) Stop: 07/01/24 00:00 Last Admin: 06/22/24 09:32 Dose: 4 mg Ondansetron HCl (Ondansetron Inj 2 Mg/Ml 2 Ml Vial) 4 mg IV Q6H PRN PRN Reason: Nausea Stop: 07/16/24 21:31 Oxycodone HCl (Oxycodone Hcl Ir 5 Mg Tab (Immediate Release)) 5 - 10 mg PO Q6 PRN PRN Reason: Mod-Sev Pain (Scale 4-10) Stop: 06/30/24 21:31 Last Admin: 06/22/24 05:40 Dose: 10 mg Pantoprazole Sodium (Pantoprazole 40 Mg Tab) 40 mg PO BID [facility] Stop: 07/16/24 21:44 Last Admin: 06/22/24 08:17 Dose: 40 mg Polyethylene Glycol (Polyethylene (Miralax) 17 Gm Pack) 17 gm PO DAILY [facility] Stop: 07/22/24 08:59 Last Admin: 06/22/24 08:14 Dose: 17 gm Senna/Docusate Sodium (Docusate Sodium/Senna 50/8.6mg Tab) 1 tab PO QAM PRN PRN Reason: constipation Stop: 07/16/24 21:31 Last Admin: 06/22/24 08:14 Dose: 1 tab Sodium Biphosphate/Sodium Phosphate (Sod Phosphate/Sod Biphosphate Enema 132 Ml Btl) 132 ml LA ONE PRN PRN Reason: if hasn't moved bowel yet Stop: 07/20/24 14:14 Last Admin: 06/20/24 17:21 Dose: 132 ml Tizanidine HCl (Tizanidine Hcl 4 Mg Tablet) 4 mg PO TID [facility] Stop: 07/21/24 13:59 Last Admin: 06/22/24 14:16 Dose: 4 mg Vitamin D (Cholecalciferol 25 Mcg (1000 Units) Tab) 25 mcg PO QAM [facility] Stop: 07/17/24 08:59 Last Admin: 06/22/24 08:16 Dose: 25 mcg
[2024-06-23] MEDS: methylPREDNISolone 4 MG TAB PO SCH (05:46)
[2024-06-23] MEDS: DOCUSATE SODIUM/SENNA 50/8.6MG TAB PO SCH (08:36)
--- NOTE | 2024-06-23 13:06 | Hospitalist Progress Note ---
Date of Service June 23, 2024 Assessment & Plan (1) Spinal stenosis of lumbar region with radiculopathy: (2) H/O lumbosacral spine surgery: (3) Ambulatory dysfunction: (4) Hypoxia: (5) JALEN (obstructive sleep apnea): (6) Paroxysmal A-fib: (7) HTN (hypertension): (8) (HFpEF) heart failure with preserved ejection fraction: (9) CAD (coronary artery disease): (10) HLD (hyperlipidemia): (11) Hypothyroidism: (12) Depression: (13) GERD (gastroesophageal reflux disease): Plan 73 year old female with PMH significant for paroxysmal A fib, HTN, HFpEF, CAD. 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 Spinal stenosis of lumbar region with radiculopathy s/p L4-S1 decompression and fusion Lumbar spine CT revealed no fracture or subluxation; hardware from fusion intact; mild to moderate multilevel neural foraminal stenosis Hip and pelvis xray revealed moderate bilateral osteoarthritis of hips Orthospine evaluated, likely patient will benefit from nonsurgical management. Pain management consult, appreciate recommendation. re-evaled 06/21. PT/OT, patient will likely need rehab. Continue pain management, bowel regimen. increased gabapentin to 600 mg tid , baclofen 06/20 to tizanidine 06/21. c/w Lidocaine patch and heat application Appreciate pain management reevaluationwill have outpatient SI joint injection in the pain management we will work towards getting an appointment ,she will need to have Eliquis off for 72 hours Gabapentin has been increased to 60 mg 3 times daily., Continue Medrol Dosepak, Oxy IR and IV morphine as needed for breakthrough pain, continue lidocaine patch and baclofen has been changed to tizanidine Will continue physical therapy and discharged home in the patient is reasonably ambulant with control of pain Continues to have severe back pain even at rest with minimal movement Advised to take pain medications prior to any activities especially physical therapy Likely to discharge in a day or 2 with home physical therapy and subsequently SI injection as an outpatient Constipation Secondary to use of narcotic pain medications and being limited mobility Will give adequate amount of laxatives Ambulatory dysfunction: Likely due to back pain. PT/OT consults Hypoxia JALEN Patient 88% on RA while sleeping in ED Likely due to JALEN or post morphine or obesity hypoventilation syndrome Continue CPAP qhs Denies any acute shortness of breath saturating normally on room air No respiratory symptoms PAF, HTN, HFpEF, CAD, HLD Patient follows with Cardiology Dr. Frias every 6 months (last seen 05/24/2024) Cardiac conditions stable Continue amiodarone and eliquis for A fib. Continue amlodipine, baby aspirin, atorvastatin, metoprolol, losartan for HF/CAD/HTN/HLD No cardiac symptoms and has been on Eliquis for A-fib Denies any shortness of breath and no crackles on examination Hypothyroidism:Continue levothyroxine Depression:Continue escitalopram GERD:Continue omeprazole Venous insufficiency:Continue lasix 3x/week DVT Prophylaxis: on eliquis Code Status: FULL CODE . PCP: Dr Naveed Peters Dispo: pt/ot, cm to assist w/ dc plan. Admission and Anticipated Discharge Date Admission Date: June 16, 2024 Subjective 06/22/2024 The patient was seen and examined in medical floor She has been complaining of more pain in the back that goes down to the legs Remains in bed and any movement causes more pain Still requiring intravenous pain medications at times 06/23/2024 The patient was seen and examined in medical floor She is still complaining of a lot of pain Advised to have pain medications prior to physical therapy She plans to go home when better and continue with the home physical therapy Denies any other significant symptoms Review of Systems Review of Systems: All systems reviewed and are unremarkable except as noted below Physical Exam Physical Exam: Lying in bed with distress due to back pain Constitutional: well developed, well nourished, + ill appearing and + obese Eyes: PERRL, conjunctivae normal, anicteric sclerae ENMT: external ear and nose normal, oropharynx normal Neck: trachea midline, no thyromegaly Respiratory: no respiratory distress Auscultation: lungs clear to auscultation bilaterally and + diminished lung sounds Cardiovascular: Rate/Rhythm: regular rate and regular rhythm; not tachycardic Heart Sounds: normal S1 and normal S2; no murmur Extremities: + edema ( trace edema bilaterally) Gastrointestinal (Abdomen): Inspection/Auscultation: + abdomen distended and normal bowel sounds Percussion/Palpation: abdomen soft; abdomen nontender Neurologic: normal touch/pain/proprioception and moves all extremities; no focal motor deficits Lymphatic: no cervical or axillary lymphadenopathy Results & Data Results & Data Vital Signs (Past 12 Hours) Vital Signs Temp Pulse Resp BP Pulse Ox O2 Del Method 06/23/24 07:09 Room Air 06/23/24 07:07 36.5 C 71 16 131/80 94 Room Air Medications Administered Current Inpatient Medications Acetaminophen (Acetaminophen 325 Mg Tab) 650 mg PO QID [facility] Stop: 07/16/24 21:31 Last Admin: 06/23/24 08:35 Dose: 650 mg Amiodarone HCl (Amiodarone 200 Mg Tab) 200 mg PO QAM [facility] Stop: 07/17/24 08:59 Last Admin: 06/23/24 08:38 Dose: 200 mg Amlodipine Besylate (Amlodipine Besylate 5 Mg Tab) [facility] [place] Stop: 07/17/24 08:59 Last Admin: 06/23/24 08:37 Dose: 5 mg Apixaban (Apixaban 5 Mg Tablet) 5 mg PO BID [facility] Stop: 07/17/24 21:59 Last Admin: 06/23/24 08:37 Dose: 5 mg Aspirin (Aspirin 81 Mg Ectab) 81 mg PO QAM [facility] Stop: 07/17/24 08:59 Last Admin: 06/23/24 08:36 Dose: 81 mg Atorvastatin Calcium (Atorvastatin 40 Mg Tab) 40 mg PO HS [facility] Stop: 07/16/24 21:31 Last Admin: 06/22/24 20:07 Dose: 40 mg Cyanocobalamin (Cyanocobalamin (B-12) 500 Mcg Tablet) 1,000 mcg PO QAM [facility] Stop: 07/17/24 08:59 Last Admin: 06/23/24 08:37 Dose: 1,000 mcg Escitalopram Oxalate (Escitalopram Oxalate 20 Mg Tab) 20 mg PO QPM [facility] Stop: 07/16/24 21:31 Last Admin: 06/22/24 20:07 Dose: 20 mg Fluticasone Propionate (Fluticasone Propionate Na Spr 16 Gm Btl) 2 sprays NA D AILY [facility] Stop: 07/21/24 14:29 Last Admin: 06/23/24 08:35 Dose: 2 sprays Furosemide (Furosemide 20 Mg Tab) 20 mg PO MoWeFr PRN PRN Reason: edema Stop: 07/16/24 21:31 Gabapentin (Gabapentin 300 Mg Cap) 600 mg PO TID [facility] Stop: 07/21/24 13:59 Last Admin: 06/23/24 08:36 Dose: 600 mg Levothyroxine Sodium (Levothyroxine Sodium 75 Mcg Tablet) 75 mcg PO DAILYBB [facility] Stop: 07/17/24 06:29 Last Admin: 06/23/24 05:46 Dose: 75 mcg Lidocaine (Lidocaine 5% 1 Patch) 1 patch TD QPM [facility] Stop: 07/16/24 21:31 Last Admin: 06/22/24 20:07 Dose: 1 patch Losartan Potassium (Losartan Potassium 50 Mg Tab) 100 mg PO QAM [facility] Stop: 07/17/24 08:59 Last Admin: 06/23/24 08:38 Dose: 100 mg Metoprolol Succinate (Metoprolol Succ 25mg Ext Rel Tab) [facility] [place] Stop: 07/17/24 08:59 Last Admin: 06/23/24 08:37 Dose: 25 mg Miscellaneous (Remove Lidoderm Patch) 1 each N/A DAILY [facility] Stop: 07/17/24 08:59 Last Admin: 06/23/24 08:38 Dose: 1 each Morphine Sulfate (Morphine Sulfate 4 Mg/Ml 1 Ml Carp\Vial) 4 mg IV Q6 PRN PRN Reason: Severe Pain (Scale 7, 8, 9,10) Stop: 07/01/24 00:00 Last Admin: 06/23/24 12:38 Dose: 4 mg Ondansetron HCl (Ondansetron Inj 2 Mg/Ml 2 Ml Vial) 4 mg IV Q6H PRN PRN Reason: Nausea Stop: 07/16/24 21:31 Oxycodone HCl (Oxycodone Hcl Ir 5 Mg Tab (Immediate Release)) 5 - 10 mg PO Q6 PRN PRN Reason: Mod-Sev Pain (Scale 4-10) Stop: 06/30/24 21:31 Last Admin: 06/23/24 08:35 Dose: 10 mg Pantoprazole Sodium (Pantoprazole 40 Mg Tab) 40 mg PO BID [facility] Stop: 07/16/24 21:44 Last Admin: 06/23/24 08:38 Dose: 40 mg Polyethylene Glycol (Polyethylene (Miralax) 17 Gm Pack) 17 gm PO BID [facility] Stop: 07/22/24 20:59 Last Admin: 06/23/24 08:33 Dose: 17 gm Senna/Docusate Sodium (Docusate Sodium/Senna 50/8.6mg Tab) 2 tab PO QAM [facility] Stop: 07/23/24 08:59 Last Admin: 06/23/24 08:36 Dose: 2 tab Sodium Biphosphate/Sodium Phosphate (Sod Phosphate/Sod Biphosphate Enema 132 Ml Btl) 132 ml TX ONE PRN PRN Reason: if hasn't moved bowel yet Stop: 07/20/24 14:14 Last Admin: 06/20/24 17:21 Dose: 132 ml Tizanidine HCl (Tizanidine Hcl 4 Mg Tablet) 4 mg PO TID [facility] Stop: 07/21/24 13:59 Last Admin: 06/23/24 08:37 Dose: 4 mg Vitamin D (Cholecalciferol 25 Mcg (1000 Units) Tab) 25 mcg PO QAM [facility] Stop: 07/17/24 08:59 Last Admin: 06/23/24 08:39 Dose: 25 mcg
--- NOTE | 2024-06-24 12:01 | Hospitalist Progress Note ---
Date of Service June 24, 2024 Assessment & Plan (1) Spinal stenosis of lumbar region with radiculopathy: (2) H/O lumbosacral spine surgery: (3) Ambulatory dysfunction: (4) Hypoxia: (5) JALEN (obstructive sleep apnea): (6) Paroxysmal A-fib: (7) HTN (hypertension): (8) (HFpEF) heart failure with preserved ejection fraction: (9) CAD (coronary artery disease): (10) HLD (hyperlipidemia): (11) Hypothyroidism: (12) Depression: (13) GERD (gastroesophageal reflux disease): Plan 73 year old female with PMH significant for paroxysmal A fib, HTN, HFpEF, CAD. 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 Spinal stenosis of lumbar region with radiculopathy s/p L4-S1 decompression and fusion Lumbar spine CT revealed no fracture or subluxation; hardware from fusion intact; mild to moderate multilevel neural foraminal stenosis Hip and pelvis xray revealed moderate bilateral osteoarthritis of hips Orthospine evaluated, likely patient will benefit from nonsurgical management. Pain management consult, appreciate recommendation. re-evaled 06/21. PT/OT, patient will likely need rehab. Continue pain management, bowel regimen. increased gabapentin to 600 mg tid , baclofen 06/20 to tizanidine 06/21. c/w Lidocaine patch and heat application Appreciate pain management reevaluationwill have outpatient SI joint injection in the pain management we will work towards getting an appointment ,she will need to have Eliquis off for 72 hours Gabapentin has been increased to 60 mg 3 times daily., Continue Medrol Dosepak, Oxy IR and IV morphine as needed for breakthrough pain, continue lidocaine patch and baclofen has been changed to tizanidine Will continue physical therapy and discharged home in the patient is reasonably ambulant with control of pain Continues to have severe back pain even at rest with minimal movement Advised to take pain medications prior to any activities especially physical therapy Likely to discharge in a day or 2 with home physical therapy and subsequently SI injection as an outpatient Continues to have back pain but getting little better Wanted to go home tomorrow with the hope that condition will get even better tomorrow Still has significant pain radiating to the left leg Constipation Secondary to use of narcotic pain medications and being limited mobility Will give adequate amount of laxatives Bowel movement Ambulatory dysfunction: Likely due to back pain. PT/OT consults Strongly advised to continue with the PT and OT as an outpatient Hypoxia JALEN Patient 88% on RA while sleeping in ED Likely due to JALEN or post morphine or obesity hypoventilation syndrome Continue CPAP qhs Denies any acute shortness of breath saturating normally on room air No respiratory symptoms PAF, HTN, HFpEF, CAD, HLD Patient follows with Cardiology Dr. Frias every 6 months (last seen 05/24/2024) Cardiac conditions stable Continue amiodarone and eliquis for A fib. Continue amlodipine, baby aspirin, atorvastatin, metoprolol, losartan for HF/CAD/HTN/HLD No cardiac symptoms and has been on Eliquis for A-fib Denies any shortness of breath and no crackles on examination Hypothyroidism:Continue levothyroxine Depression:Continue escitalopram GERD:Continue omeprazole Venous insufficiency:Continue lasix 3x/week DVT Prophylaxis: on eliquis Code Status: FULL CODE . PCP: Dr Naveed Peters Dispo: pt/ot, cm to assist w/ dc plan. Admission and Anticipated Discharge Date Admission Date: June 16, 2024 Subjective 06/22/2024 The patient was seen and examined in medical floor She has been complaining of more pain in the back that goes down to the legs Remains in bed and any movement causes more pain Still requiring intravenous pain medications at times 06/23/2024 The patient was seen and examined in medical floor She is still complaining of a lot of pain Advised to have pain medications prior to physical therapy She plans to go home when better and continue with the home physical therapy Denies any other significant symptoms 06/24/2024 The patient was seen and examined in medical floor She continues to have back pain with radiation to the left leg mainly Has been getting physical therapy and like to be discharged tomorrow Review of Systems Review of Systems: All systems reviewed and are unremarkable except as noted below Physical Exam Physical Exam: Lying in bed with distress due to back pain Constitutional: well developed, well nourished, + ill appearing and + obese Eyes: PERRL, conjunctivae normal, anicteric sclerae ENMT: external ear and nose normal, oropharynx normal Neck: trachea midline, no thyromegaly Respiratory: no respiratory distress Auscultation: lungs clear to auscultation bilaterally and + diminished lung sounds Cardiovascular: Rate/Rhythm: regular rate and regular rhythm; not tachycardic Heart Sounds: normal S1 and normal S2; no murmur Extremities: + edema ( trace edema bilaterally) Gastrointestinal (Abdomen): Inspection/Auscultation: + abdomen distended and normal bowel sounds Percussion/Palpation: abdomen soft; abdomen nontender Neurologic: normal touch/pain/proprioception and moves all extremities; no focal motor deficits Lymphatic: no cervical or axillary lymphadenopathy Results & Data Results & Data Vital Signs (Past 12 Hours) Vital Signs Temp Pulse Pulse Resp BP Pulse Ox O2 Del Method 06/24/24 08:41 36.6 C 79 17 143/76 H 96 Room Air 06/24/24 07:46 36.5 C 60 18 119/78 98 Room Air Medications Administered Current Inpatient Medications Acetaminophen (Acetaminophen 325 Mg Tab) 650 mg PO QID [facility] Stop: 07/16/24 21:31 Last Admin: 06/24/24 07:22 Dose: 650 mg Amiodarone HCl (Amiodarone 200 Mg Tab) 200 mg PO QAM [facility] Stop: 07/17/24 08:59 Last Admin: 06/24/24 07:52 Dose: 200 mg Amlodipine Besylate (Amlodipine Besylate 5 Mg Tab) 5 mg PO QAM [facility] Stop: 07/17/24 08:59 Last Admin: 06/24/24 07:19 Dose: 5 mg Apixaban (Apixaban 5 Mg Tablet) 5 mg PO BID [facility] Stop: 07/17/24 21:59 Last Admin: 06/24/24 07:17 Dose: 5 mg Aspirin (Aspirin 81 Mg Ectab) 81 mg PO QAM [facility] Stop: 07/17/24 08:59 Last Admin: 06/24/24 07:16 Dose: 81 mg Atorvastatin Calcium (Atorvastatin 40 Mg Tab) 40 mg PO HS [facility] Stop: 07/16/24 21:31 Last Admin: 06/23/24 20:15 Dose: 40 mg Cyanocobalamin (Cyanocobalamin (B-12) 500 Mcg Tablet) 1,000 mcg PO QAM [facility] Stop: 07/17/24 08:59 Last Admin: 06/24/24 07:18 Dose: 1,000 mcg Escitalopram Oxalate (Escitalopram Oxalate 20 Mg Tab) 20 mg PO QPM [facility] Stop: 07/16/24 21:31 Last Admin: 06/23/24 20:15 Dose: 20 mg Fluticasone Propionate (Fluticasone Propionate Na Spr 16 Gm Btl) 2 sprays NA DAILY [facility] Stop: 07/21/24 14:29 Last Admin: 06/24/24 07:17 Dose: 2 sprays Furosemide (Furosemide 20 Mg Tab) 20 mg PO MoWeFr PRN PRN Reason: edema Stop: 07/16/24 21:31 Gabapentin (Gabapentin 300 Mg Cap) 600 mg PO TID [facility] Stop: 07/21/24 13:59 Last Admin: 06/24/24 07:17 Dose: 600 mg Levothyroxine Sodium (Levothyroxine Sodium 75 Mcg Tablet) 75 mcg PO DAILYBB [facility] Stop: 07/17/24 06:29 Last Admin: 06/24/24 06:18 Dose: 75 mcg Lidocaine (Lidocaine 5% 1 Patch) 1 patch TD QPM [facility] Stop: 07/16/24 21:31 Last Admin: 06/23/24 20:16 Dose: 1 patch Losartan Potassium (Losartan Potassium 50 Mg Tab) 100 mg PO QAM [facility] Stop: 07/17/24 08:59 Last Admin: 06/24/24 07:18 Dose: 100 mg Metoprolol Succinate (Metoprolol Succ 25mg Ext Rel Tab) 25 mg PO QAM [facility] Stop: 07/17/24 08:59 Last Admin: 06/24/24 07:19 Dose: 25 mg Miscellaneous (Remove Lidoderm Patch) 1 each N/A DAILY [facility] Stop: 07/17/24 08:59 Last Admin: 06/24/24 07:20 Dose: 1 each Morphine Sulfate (Morphine Sulfate 4 Mg/Ml 1 Ml Carp\Vial) 4 mg IV Q6 PRN PRN Reason: Severe Pain (Scale 7, 8, 9,10) Stop: 07/01/24 00:00 Last Admin: 06/24/24 10:33 Dose: 4 mg Ondansetron HCl (Ondansetron Inj 2 Mg/Ml 2 Ml Vial) 4 mg IV Q6H PRN PRN Reason: Nausea Stop: 07/16/24 21:31 Oxycodone HCl (Oxycodone Hcl Ir 5 Mg Tab (Immediate Release)) 5 - 10 mg PO Q6 PRN PRN Reason: Mod-Sev Pain (Scale 4-10) Stop: 06/30/24 21:31 Last Admin: 06/24/24 06:21 Dose: 10 mg Pantoprazole Sodium (Pantoprazole 40 Mg Tab) 40 mg PO BID [facility] Stop: 07/16/24 21:44 Last Admin: 06/24/24 07:17 Dose: 40 mg Polyethylene Glycol (Polyethylene (Miralax) 17 Gm Pack) 17 gm PO BID [facility] Stop: 07/22/24 20:59 Last Admin: 06/24/24 07:22 Dose: 17 gm Senna/Docusate Sodium (Docusate Sodium/Senna 50/8.6mg Tab) 2 [facility] [place] Stop: 07/23/24 08:59 Last Admin: 06/24/24 07:22 Dose: 2 tab Sodium Biphosphate/Sodium Phosphate (Sod Phosphate/Sod Biphosphate Enema 132 Ml Btl) 132 ml SC ONE PRN PRN Reason: if hasn't moved bowel yet Stop: 07/20/24 14:14 Last Admin: 06/20/24 17:21 Dose: 132 ml Tizanidine HCl (Tizanidine Hcl 4 Mg Tablet) 4 mg PO TID [facility] Stop: 07/21/24 13:59 Last Admin: 06/24/24 07:16 Dose: 4 mg Vitamin D (Cholecalciferol 25 Mcg (1000 Units) Tab) 25 mcg PO QAM [facility] Stop: 07/17/24 08:59 Last Admin: 06/24/24 07:17 Dose: 25 mcg
--- NOTE | 2024-06-25 12:42 | Hospitalist Progress Note ---
Date of Service June 25, 2024 Assessment & Plan (1) Spinal stenosis of lumbar region with radiculopathy: (2) H/O lumbosacral spine surgery: (3) Ambulatory dysfunction: (4) Hypoxia: (5) JALEN (obstructive sleep apnea): (6) Paroxysmal A-fib: (7) HTN (hypertension): (8) (HFpEF) heart failure with preserved ejection fraction: (9) CAD (coronary artery disease): (10) HLD (hyperlipidemia): (11) Hypothyroidism: (12) Depression: (13) GERD (gastroesophageal reflux disease): Plan 73 year old female with PMH significant for paroxysmal A fib, HTN, HFpEF, CAD. 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 Spinal stenosis of lumbar region with radiculopathy s/p L4-S1 decompression and fusion Lumbar spine CT revealed no fracture or subluxation; hardware from fusion intact; mild to moderate multilevel neural foraminal stenosis Hip and pelvis xray revealed moderate bilateral osteoarthritis of hips Orthospine evaluated, likely patient will benefit from nonsurgical management. Pain management consult, appreciate recommendation. re-evaled 06/21. PT/OT, patient will likely need rehab. Continue pain management, bowel regimen. increased gabapentin to 600 mg tid , baclofen 06/20 to tizanidine 06/21. c/w Lidocaine patch and heat application Appreciate pain management reevaluationwill have outpatient SI joint injection in the pain management we will work towards getting an appointment ,she will need to have Eliquis off for 72 hours Gabapentin has been increased to 60 mg 3 times daily., Continue Medrol Dosepak, Oxy IR and IV morphine as needed for breakthrough pain, continue lidocaine patch and baclofen has been changed to tizanidine Will continue physical therapy and discharged home in the patient is reasonably ambulant with control of pain Continues to have severe back pain even at rest with minimal movement Advised to take pain medications prior to any activities especially physical therapy Likely to discharge in a day or 2 with home physical therapy and subsequently SI injection as an outpatient Continues to have back pain but getting little better Wanted to go home tomorrow with the hope that condition will get even better tomorrow Still has significant pain radiating to the left leg Pain has been worse since this morning and not yet ready to be discharged Will continue current pain medications and try to send her home tomorrow Constipation Secondary to use of narcotic pain medications and being limited mobility Will give adequate amount of laxatives Her bowel is moving with current regimen of laxatives Ambulatory dysfunction: Likely due to back pain. PT/OT consults Strongly advised to continue with the PT and OT as an outpatient Hypoxia JALEN Patient 88% on RA while sleeping in ED Likely due to JALEN or post morphine or obesity hypoventilation syndrome Continue CPAP qhs Denies any acute shortness of breath saturating normally on room air No respiratory symptoms PAF, HTN, HFpEF, CAD, HLD Patient follows with Cardiology Dr. Frias every 6 months (last seen 05/24/2024) Cardiac conditions stable Continue amiodarone and eliquis for A fib. Continue amlodipine, baby aspirin, atorvastatin, metoprolol, losartan for HF/CAD/HTN/HLD No cardiac symptoms and has been on Eliquis for A-fib Denies any shortness of breath and no crackles on examination Blood pressure remains on the lower side at 90/60 Hypothyroidism:Continue levothyroxine Depression:Continue escitalopram GERD:Continue omeprazole Venous insufficiency:Continue lasix 3x/week DVT Prophylaxis: on eliquis Code Status: FULL CODE . PCP: Dr Naveed Peters Dispo: pt/ot, cm to assist w/ dc plan. Admission and Anticipated Discharge Date Admission Date: June 16, 2024 Subjective 06/22/2024 The patient was seen and examined in medical floor She has been complaining of more pain in the back that goes down to the legs Remains in bed and any movement causes more pain Still requiring intravenous pain medications at times 06/23/2024 The patient was seen and examined in medical floor She is still complaining of a lot of pain Advised to have pain medications prior to physical therapy She plans to go home when better and continue with the home physical therapy Denies any other significant symptoms 06/24/2024 The patient was seen and examined in medical floor She continues to have back pain with radiation to the left leg mainly Has been getting physical therapy and like to be discharged tomorrow 06/25/2024 The patient was seen and examined in medical floor She complains to more pain this morning even at rest and does not feel that she can go home today Denies any other significant symptoms Review of Systems Review of Systems: All systems reviewed and are unremarkable except as noted below Physical Exam Physical Exam: Lying in bed with distress due to back pain Constitutional: well developed, well nourished, + ill appearing and + obese Eyes: PERRL, conjunctivae normal, anicteric sclerae ENMT: external ear and nose normal, oropharynx normal Neck: trachea midline, no thyromegaly Respiratory: no respiratory distress Auscultation: lungs clear to auscu ltation bilaterally and + diminished lung sounds Cardiovascular: Rate/Rhythm: regular rate and regular rhythm; not tachycardic Heart Sounds: normal S1 and normal S2; no murmur Extremities: + edema ( trace edema bilaterally) Gastrointestinal (Abdomen): Inspection/Auscultation: + abdomen distended and normal bowel sounds Percussion/Palpation: abdomen soft; abdomen nontender Neurologic: normal touch/pain/proprioception and moves all extremities; no focal motor deficits Lymphatic: no cervical or axillary lymphadenopathy Results & Data Results & Data Vital Signs (Past 12 Hours) Vital Signs Temp Pulse Pulse Resp BP Pulse Ox O2 Del Method 06/25/24 11:52 36.6 C 61 17 90/60 L 95 Room Air 06/25/24 07:39 36.5 C 65 17 109/73 95 Room Air Medications Administered Current Inpatient Medications Acetaminophen (Acetaminophen 325 Mg Tab) 650 mg PO QID [facility] Stop: 07/16/24 21:31 Last Admin: 06/25/24 07:23 Dose: 650 mg Amiodarone HCl (Amiodarone 200 Mg Tab) 200 mg PO QAM [facility] Stop: 07/17/24 08:59 Last Admin: 06/25/24 07:17 Dose: 200 mg Amlodipine Besylate (Amlodipine Besylate 5 Mg Tab) 5 mg PO QAM [facility] Stop: 07/17/24 08:59 Last Admin: 06/25/24 07:19 Dose: 5 mg Apixaban (Apixaban 5 Mg Tablet) 5 mg PO BID [facility] Stop: 07/17/24 21:59 Last Admin: 06/25/24 07:18 Dose: 5 mg Aspirin (Aspirin 81 Mg Ectab) 81 mg PO QAM [facility] Stop: 07/17/24 08:59 Last Admin: 06/25/24 07:19 Dose: 81 mg Atorvastatin Calcium (Atorvastatin 40 Mg Tab) 40 mg PO HS [facility] Stop: 07/16/24 21:31 Last Admin: 06/24/24 19:52 Dose: 40 mg Cyanocobalamin (Cyanocobalamin (B-12) 500 Mcg Tablet) 1,000 mcg PO QAM [facility] Stop: 07/17/24 08:59 Last Admin: 06/25/24 07:17 Dose: 1,000 mcg Escitalopram Oxalate (Escitalopram Oxalate 20 Mg Tab) 20 mg PO QPM [facility] Stop: 07/16/24 21:31 Last Admin: 06/24/24 19:52 Dose: 20 mg Fluticasone Propionate (Fluticasone Propionate Na Spr 16 Gm Btl) 2 sprays NA DAILY [facility] Stop: 07/21/24 14:29 Last Admin: 06/25/24 07:19 Dose: 2 sprays Furosemide (Furosemide 20 Mg Tab) 20 mg PO MoWeFr PRN PRN Reason: edema Stop: 07/16/24 21:31 Gabapentin (Gabapentin 300 Mg Cap) 600 mg PO TID [facility] Stop: 07/21/24 13:59 Last Admin: 06/25/24 07:18 Dose: 600 mg Levothyroxine Sodium (Levothyroxine Sodium 75 Mcg Tablet) 75 mcg PO DAILYBB [facility] Stop: 07/17/24 06:29 Last Admin: 06/25/24 06:15 Dose: 75 mcg Lidocaine (Lidocaine 5% 1 Patch) 1 patch TD QPM [facility] Stop: 07/16/24 21:31 Last Admin: 06/24/24 19:56 Dose: 1 patch Losartan Potassium (Losartan Potassium 50 Mg Tab) 100 mg PO QAM [facility] Stop: 07/17/24 08:59 Last Admin: 06/25/24 07:16 Dose: 100 mg Metoprolol Succinate (Metoprolol Succ 25mg Ext Rel Tab) 25 mg PO QAM [facility] Stop: 07/17/24 08:59 Last Admin: 06/25/24 07:18 Dose: 25 mg Miscellaneous (Remove Lidoderm Patch) 1 each N/A DAILY [facility] Stop: 07/17/24 08:59 Last Admin: 06/25/24 07:20 Dose: 1 each Morphine Sulfate (Morphine Sulfate 4 Mg/Ml 1 Ml Carp\Vial) 4 mg IV Q6 PRN PRN Reason: Severe Pain (Scale 7, 8, 9,10) Stop: 07/01/24 00:00 Last Admin: 06/25/24 09:49 Dose: 4 mg Ondansetron HCl (Ondansetron Inj 2 Mg/Ml 2 Ml Vial) 4 mg IV Q6H PRN PRN Reason: Nausea Stop: 07/16/24 21:31 Oxycodone HCl (Oxycodone Hcl Ir 5 Mg Tab (Immediate Release)) 5 - 10 mg PO Q6 PRN PRN Reason: Mod-Sev Pain (Scale 4-10) Stop: 06/30/24 21:31 Last Admin: 06/25/24 07:22 Dose: 10 mg Pantoprazole Sodium (Pantoprazole 40 Mg Tab) 40 mg PO BID [facility] Stop: 07/16/24 21:44 Last Admin: 06/25/24 07:18 Dose: 40 mg Polyethylene Glycol (Polyethylene (Miralax) 17 Gm Pack) 17 gm PO BID [facility] Stop: 07/22/24 20:59 Last Admin: 06/25/24 07:22 Dose: 17 gm Senna/Docusate Sodium (Docusate Sodium/Senna 50/8.6mg Tab) 2 tab PO QAM [facility] Stop: 07/23/24 08:59 Last Admin: 06/25/24 07:23 Dose: 2 tab Sodium Biphosphate/Sodium Phosphate (Sod Phosphate/Sod Biphosphate Enema 132 Ml Btl) 132 ml CO ONE PRN PRN Reason: if hasn't moved bowel yet Stop: 07/20/24 14:14 Last Admin: 06/20/24 17:21 Dose: 132 ml Tizanidine HCl (Tizanidine Hcl 4 Mg Tablet) 4 mg PO TID [facility] Stop: 07/21/24 13:59 Last Admin: 06/25/24 07:16 Dose: 4 mg Vitamin D (Cholecalciferol 25 Mcg (1000 Units) Tab) 25 mcg PO QAM [facility] Stop: 07/17/24 08:59 Last Admin: 06/25/24 07:19 Dose: 25 mcg
[2024-06-25] MEDS: SODIUM CHLORIDE 0.9% 500 ML IV ONE ×2 (20:11→21:35)
[2024-06-25 20:18] LABS: Basophils # (auto) 0.02 K/uL (0.00-0.20); Basophils % (auto) 0.3 %; Eosinophils # (auto) 0.07 K/uL (0.00-0.50); Eosinophils % (auto) 0.9 %; Hematocrit (blood only) 41.6 % (37.0-47.0); Hemoglobin 13.4 g/dl (12.0-16.0); Immature Granulocytes # (auto) 0.03 K/uL (0.01-0.20); Immature Granulocytes % (auto) 0.4 %; Lymphocytes # (auto) 3.29 K/uL (1.20-3.40); Lymphocytes % (auto) 43.5 %; Mean Corpuscular Hemoglobin 31.5 pg (25.0-34.0); Mean Corpuscular Hgb Conc 32.2 g/dL (32.0-36.0); Mean Corpuscular Volume 97.7 fL (80.0-100.0); Mean Platelet Volume 9.1 fL (9.4-12.4); Monocytes # (auto) 0.57 K/uL (0.11-0.59); Monocytes % (auto) 7.5 %; Neutrophils # (auto) 3.59 K/uL (1.40-6.50); Neutrophils % (auto) 47.4 %; Platelet Count 180 K/uL (130-400); RDW Coefficient of Variation 14.4 % (11.5-14.5); RDW Standard Deviation 51.5 fL (36.4-46.3); Red Blood Count 4.26 M/uL (4.20-5.40); White Blood Count 7.57 K/ul (4.8-10.8)
[2024-06-25 20:35] LABS: Albumin Globulin Ratio 1.4 (0.9-2); Albumin Level 3.5 gm/dl (3.4-5.0); BUN Creatinine Ratio 30.8 (10-20); Bilirubin,Total 0.5 mg/dl (0.2-1.0); Calcium 8.3 mg/dl (8.6-10.3); Creatinine Clr Calc Pharmacy 45.1 ml/min; Globulin 2.5 gm/dl (2.5-4.0); Magnesium 2.2 mg/dl (1.7-2.4); Potassium 4.9 mmol/L (3.5-5.1)
[2024-06-25] MEDS: SODIUM CHLORIDE 0.9% 1,000 ML IV SCH (20:44)
--- NOTE | 2024-06-26 07:14 | Electrocardiogram Report ---
Test Reason : Blood Pressure : */* mmHG Vent. Rate : 61 BPM Atrial Rate : 64 BPM P-R Int : 308 ms QRS Dur : 102 ms QT Int : 470 ms P-R-T Axes : * 42 6 degrees QTcB Int : 473 ms Atrial-paced rhythm with prolonged AV conduction Low voltage QRS Abnormal ECG When compared with ECG of 16-Jun-2024 17:20, Minimal criteria for Anterior infarct are no longer Present Nonspecific T wave abnormality has replaced inverted T waves in Anterior leads Confirmed by Tone Rajput ([id number] on 06/26/2024 7:13:48 AM Referred By: REFERRED SELF Confirmed By: Tone Rajput
--- NOTE | 2024-06-26 12:44 | Hospitalist Progress Note ---
Date of Service June 26, 2024 Assessment & Plan (1) Spinal stenosis of lumbar region with radiculopathy: (2) H/O lumbosacral spine surgery: (3) Ambulatory dysfunction: (4) Hypoxia: (5) JALEN (obstructive sleep apnea): (6) Paroxysmal A-fib: (7) HTN (hypertension): (8) (HFpEF) heart failure with preserved ejection fraction: (9) CAD (coronary artery disease): (10) HLD (hyperlipidemia): (11) Hypothyroidism: (12) Depression: (13) GERD (gastroesophageal reflux disease): Plan 73 year old female with PMH significant for paroxysmal A fib, HTN, HFpEF, CAD. 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 Spinal stenosis of lumbar region with radiculopathy s/p L4-S1 decompression and fusion Lumbar spine CT revealed no fracture or subluxation; hardware from fusion intact; mild to moderate multilevel neural foraminal stenosis Hip and pelvis xray revealed moderate bilateral osteoarthritis of hips Orthospine evaluated, likely patient will benefit from nonsurgical management. Pain management consult, appreciate recommendation. re-evaled 06/21. PT/OT, patient will likely need rehab. Continue pain management, bowel regimen. increased gabapentin to 600 mg tid , baclofen 06/20 to tizanidine 06/21. c/w Lidocaine patch and heat application Appreciate pain management reevaluationwill have outpatient SI joint injection in the pain management we will work towards getting an appointment ,she will need to have Eliquis off for 72 hours Gabapentin has been increased to 60 mg 3 times daily., Continue Medrol Dosepak, Oxy IR and IV morphine as needed for breakthrough pain, continue lidocaine patch and baclofen has been changed to tizanidine Will continue physical therapy and discharged home in the patient is reasonably ambulant with control of pain Continues to have severe back pain even at rest with minimal movement Advised to take pain medications prior to any activities especially physical therapy Likely to discharge in a day or 2 with home physical therapy and subsequently SI injection as an outpatient Continues to have back pain but getting little better Wanted to go home tomorrow with the hope that condition will get even better tomorrow Still has significant pain radiating to the left leg Pain has been worse since this morning and not yet ready to be discharged Will continue current pain medications and try to send her home tomorrow Pain is worse today and noted to have low blood pressure yesterday and required fluid bolus Clinically much better today but continues to have more pain with numbness and tingling in the extremities Advised to use any intravenous pain medications and continue with physical therapy Blood pressure is maintained as of this morning Constipation Secondary to use of narcotic pain medications and being limited mobility Will give adequate amount of laxatives Her bowel is moving with current regimen of laxatives Ambulatory dysfunction: Likely due to back pain. PT/OT consults Strongly advised to continue with the PT and OT as an outpatient Hypoxia JALEN Patient 88% on RA while sleeping in ED Likely due to JALEN or post morphine or obesity hypoventilation syndrome Continue CPAP qhs Denies any acute shortness of breath saturating normally on room air No respiratory symptoms PAF, HTN, HFpEF, CAD, HLD Patient follows with Cardiology Dr. Frias every 6 months (last seen 05/24/2024) Cardiac conditions stable Continue amiodarone and eliquis for A fib. Continue amlodipine, baby aspirin, atorvastatin, metoprolol, losartan for HF/CAD/HTN/HLD No cardiac symptoms and has been on Eliquis for A-fib Denies any shortness of breath and no crackles on examination Blood pressure remains on the lower side at 90/60 Blood pressure was low last night as well and received normal saline bolus which is maintained now at 127/78 Likely discharge tomorrow Hypothyroidism:Continue levothyroxine Depression:Continue escitalopram GERD:Continue omeprazole Venous insufficiency:Continue lasix 3x/week DVT Prophylaxis: on eliquis Code Status: FULL CODE . PCP: Dr Naveed Peters Dispo: pt/ot, cm to assist w/ dc plan. Admission and Anticipated Discharge Date Admission Date: June 16, 2024 Subjective 06/22/2024 The patient was seen and examined in medical floor She has been complaining of more pain in the back that goes down to the legs Remains in bed and any movement causes more pain Still requiring intravenous pain medications at times 06/23/2024 The patient was seen and examined in medical floor She is still complaining of a lot of pain Advised to have pain medications prior to physical therapy She plans to go home when better and continue with the home physical therapy Denies any other significant symptoms 06/24/2024 The patient was seen and examined in medical floor She continues to have back pain with radiation to the left leg mainly Has been getting physical therapy and like to be discharged tomorrow 06/25/2024 The patient was seen and examined in medical floor She complains to more pain this morning even at rest and does not feel that she can go home today Denies any other significant symptoms 06/26/2024 The patient was seen and examined in medical floor She complains to have more pain and noted to have low blood pressure last night Reassured and is advised to drink more fluid Pain is not yet well-controlled Review of Systems Review of Systems: All systems reviewed and are unremarkable except as noted below Physical Exam Physical Exam: Lying in bed with distress due to back pain Constitutional: well developed, well nourished, + ill appearing and + obese Eyes: PERRL, conjunctivae normal, anicteric sclerae ENMT: external ear and nose normal, oropharynx normal Neck: trachea midline, no thyromegaly Respiratory: no respiratory distress Auscultation: lungs clear to auscultation bilaterally and + diminished lung sounds Cardiovascular: Rate/Rhythm: regular rate and regular rhythm; not tachycardic Heart Sounds: normal S1 and normal S2; no murmur Extremities: + edema ( trace edema bilaterally) Gastrointestinal (Abdomen): Inspection/Auscultation: + abdomen distended and normal bowel sounds Percussion/Palpation: abdomen soft; abdomen nontender Neurologic: normal touch/pain/proprioception and moves all extremities; no focal motor deficits Lymphatic: no cervical or axillary lymphadenopathy Results & Data Results & Data Vital Signs (Past 12 Hours) Vital Signs Temp Pulse Resp BP BP Pulse Ox O2 Del Method 06/26/24 07:56 36.6 C 60 18 127/78 94 Room Air 06/26/24 03:33 149/80 H Laboratory Results Short CBC 06/25/24 Range/Units 20:03 WBC 7.57 (4.8-10.8) K/ul Hgb 13.4 (12.0-16.0) g/dl Hct 41.6 (37.0-47.0) % Plt Count 180 (130-400) K/uL BMP 06/25/24 20:03 Sodium 141 Potassium 4.9 Chloride 105 Carbon Dioxide 33 H BUN 40 H Creatinine 1.30 H Glucose 95 Calcium 8.3 L Liver Function 06/25/24 Range/Units 20:03 Total Bilirubin 0.5 (0.2-1.0) mg/dl AST 27 (13-39) U/L ALT 42 (7-52) U/L Alkaline Phosphatase 85 (34-104) U/L Albumin 3.5 (3.4-5.0) gm/dl Medications Administered Current Inpatient Medications Acetaminophen (Acetaminophen 325 Mg Tab) 650 mg PO QID [facility] Stop: 07/16/24 21:31 Last Admin: 06/26/24 07:23 Dose: 650 mg Amiodarone HCl (Amiodarone 200 Mg Tab) 200 mg PO QAM [facility] Stop: 07/17/24 08:59 Last Admin: 06/26/24 07:24 Dose: 200 mg Amlodipine Besylate (Amlodipine Besylate 5 Mg Tab) [facility] Stop: 07/17/24 08:59 Last Admin: 06/26/24 07:26 Dose: 5 mg Apixaban (Apixaban 5 Mg Tablet) 5 mg PO BID [facility] Stop: 07/17/24 21:59 Last Admin: 06/26/24 07:26 Dose: 5 mg Aspirin (Aspirin 81 Mg Ectab) 81 mg PO QAM [facility] Stop: 07/17/24 08:59 Last Admin: 06/26/24 07:26 Dose: 81 mg Atorvastatin Calcium (Atorvastatin 40 Mg Tab) 40 mg PO HS [facility] Stop: 07/16/24 21:31 Last Admin: 06/25/24 20:12 Dose: 40 mg Cyanocobalamin (Cyanocobalamin (B-12) 500 Mcg Tablet) 1,000 mcg PO QAM [facility] Stop: 07/17/24 08:59 Last Admin: 06/26/24 07:24 Dose: 1,000 mcg Escitalopram Oxalate (Escitalopram Oxalate 20 Mg Tab) 20 mg PO QPM [facility] Stop: 07/16/24 21:31 Last Admin: 06/25/24 20:12 Dose: 20 mg Fluticasone Propionate (Fluticasone Propionate Na Spr 16 Gm Btl) 2 sprays NA DAILY [facility] Stop: 07/21/24 14:29 Last Admin: 06/26/24 07:23 Dose: 2 sprays Furosemide (Furosemide 20 Mg Tab) 20 mg PO MoWeFr PRN PRN Reason: edema Stop: 07/16/24 21:31 Gabapentin (Gabapentin 300 Mg Cap) 600 mg PO TID [facility] Stop: 07/21/24 13:59 Last Admin: 06/26/24 07:24 Dose: 600 mg Levothyroxine Sodium (Levothyroxine Sodium 75 Mcg Tablet) 75 mcg PO DAILYBB [facility] Stop: 07/17/24 06:29 Last Admin: 06/26/24 06:24 Dose: 75 mcg Lidocaine (Lidocaine 5% 1 Patch) 1 patch TD QPM [facility] Stop: 07/16/24 21:31 Last Admin: 06/25/24 20:13 Dose: 1 patch Losartan Potassium (Losartan Potassium 50 Mg Tab) 100 mg PO QAM [facility] Stop: 07/17/24 08:59 Last Admin: 06/26/24 07:25 Dose: 100 mg Metoprolol Succinate (Metoprolol Succ 25mg Ext Rel Tab) [facility] Stop: 07/17/24 08:59 Last Admin: 06/26/24 07:25 Dose: 25 mg Miscellaneous (Remove Lidoderm Patch) 1 each N/A DAILY [facility] Stop: 07/17/24 08:59 Last Admin: 06/26/24 07:26 Dose: 1 each Morphine Sulfate (Morphine Sulfate 4 Mg/Ml 1 Ml Carp\Vial) 4 mg IV Q6 PRN PRN Reason: Severe Pain (Scale 7, 8, 9,10) Stop: 07/01/24 00:00 Last Admin: 06/26/24 09:52 Dose: 4 mg Ondansetron HCl (Ondansetron Inj 2 Mg/Ml 2 Ml Vial) 4 mg IV Q6H PRN PRN Reason: Nausea Stop: 07/16/24 21:31 Oxycodone HCl (Oxycodone Hcl Ir 5 Mg Tab (Immediate Release)) 5 - 10 mg PO Q6 PRN PRN Reason: Mod-Sev Pain (Scale 4-10) Stop: 06/30/24 21:31 Last Admin: 06/26/24 06:24 Dose: 10 mg Pantoprazole Sodium (Pantoprazole 40 Mg Tab) 40 mg PO BID [facility] Stop: 07/16/24 21:44 Last Admin: 06/26/24 07:25 Dose: 40 mg Polyethylene Glycol (Polyethylene (Miralax) 17 Gm Pack) 17 gm PO BID [facility] Stop: 07/22/24 20:59 Last Admin: 06/26/24 07:26 Dose: 17 gm Senna/Docusate Sodium (Docusate Sodium/Senna 50/8.6mg Tab) 2 tab PO QAM [facility] Stop: 07/23/24 08:59 Last Admin: 06/26/24 07:23 Dose: 2 tab Sodium Biphosphate/Sodium Phosphate (Sod Phosphate/Sod Biphosphate Enema 132 Ml Btl) 132 ml RI ONE PRN PRN Reason: if hasn't moved bowel yet Stop: 07/20/24 14:14 Last Admin: 06/20/24 17:21 Dose: 132 ml Tizanidine HCl (Tizanidine Hcl 4 Mg Tablet) 4 mg PO TID [facility] Stop: 07/21/24 13:59 Last Admin: 06/26/24 07:23 Dose: 4 mg Vitamin D (Cholecalciferol 25 Mcg (1000 Units) Tab) 25 mcg PO QAM [facility] Stop: 07/17/24 08:59 Last Admin: 06/26/24 07:24 Dose: 25 mcg
[2024-06-26] MEDS: COUGH DROP (SUGAR FREE) LOZ 24 LOZ/1 BOX BUCCAL ONE (21:21)
--- NOTE | 2024-06-27 10:03 | Hospitalist Progress Note ---
Date of Service June 27, 2024 Assessment & Plan (1) Spinal stenosis of lumbar region with radiculopathy: (2) H/O lumbosacral spine surgery: (3) Ambulatory dysfunction: (4) Hypoxia: (5) JALEN (obstructive sleep apnea): (6) Paroxysmal A-fib: (7) HTN (hypertension): (8) (HFpEF) heart failure with preserved ejection fraction: (9) CAD (coronary artery disease): (10) HLD (hyperlipidemia): (11) Hypothyroidism: (12) Depression: (13) GERD (gastroesophageal reflux disease): Plan 73 year old female with PMH significant for paroxysmal A fib, HTN, HFpEF, CAD. stress induced [employer], tachy-jess syndrome s/p dual chamber pacemaker (2019), history of PE, venous insufficiency, CKD III, HLD, hypothyroidism, JALEN on CPAP, GERD, MDD, and degeneration of intervertebral disc of lumbar region s/p L4-S1 decompression and fusion who presented to the ED 06/16 with back pain and is admitted for ambulatory dysfunction secondary to pain. Spinal stenosis of lumbar region with radiculopathy s/p L4-S1 decompression and fusion Lumbar spine CT revealed no fracture or subluxation; hardware from fusion intact; mild to moderate multilevel neural foraminal stenosis Hip and pelvis xray revealed moderate bilateral osteoarthritis of hips [facility] evaluated on 06/17 and recommended pain management and outpatient follow up with them 2-4 weeks from discharge Pain management evaluated on 06/17 and 06/21 and recommending outpatient bilateral SI joint injections for diagnosis/therapy but will need to hold Eliquis for 72 hours -Continue gabapentin (increased to 600mg tid), tizanidine 4mg tid (added, switched from baclofen initially), lidocaine patches, heat application, medrol dosepack completed, oxycodone PRN, morphine for breakthrough pain PT and OT consults recommending home health -Approved for [facility] Home Health at time of discharge Constipation Secondary to use of narcotic pain medications Bowels are moving - continue current regimen of laxatives Ambulatory dysfunction Patient ambulating in glass with walker Approved for [facility] Home Health at time of discharge Hypoxia JALEN Patient 88% on RA while sleeping in ED - resolved and saturating well on RA Likely due to JALEN or post morphine or obesity hypoventilation syndrome Continue CPAP qhs PAF, HTN, HFpEF, CAD, HLD Patient follows with Cardiology Dr. Frias every 6 months (last seen 05/24/2024) Cardiac conditions stable Continue amiodarone and eliquis for A fib Continue amlodipine, baby aspirin, atorvastatin, metoprolol, losartan for HF/CAD/HTN/HLD BP was low the night of 10 and improved after NS bolus BPs stable Hypothyroidism Continue levothyroxine per home dosing Depression Continue escitalopram per home dosing GERD Continue omeprazole per home dosing Venous insufficiency Continue lasix 3x/week per home dosing DVT Prophylaxis: on Eliquis Code Status: FULL CODE PCP: Dr Naveed Peters Disposition: Patient is hopeful for dc tomorrow. [facility] Home Health at time of discharge. Patient seen in collaboration with Dr Kwan. Please see addendum. I spent a total of 60 minutes coordinating, documenting and providing care for this patient excluding time spent in the performance of separately billed services or time spent by another provider/QHP. Admission and Anticipated Discharge Date Admission Date: June 16, 2024 Supervising Physician Co-Signing Physician Notes Attending addendum: The patient was seen and examined in medical floor She has been feeling little better and has had physical therapy She did well with the therapy and now is out of bed on a chair Still has considerable pain and likely discharge tomorrow On examination- Sitting on a chair without any acute distress Remains hemodynamically stable with unremarkable physical examination Ongoing back pain with radiculopathy status post L4-S1 lumbar decompression and fusion Has had evaluation by pain therapist and will have outpatient injection in bilateral SI joint Other medical conditions remained stable Agree with assessment plan as outlined above by TEA aMria and agree with assessment and plan as outlined above and take the full responsible care in the hospital Total time taken in documenting and reviewing and also talking to the patient was [address] David Kwan Subjective Patient seen sitting up in bed Reports 9/10 pain in her right hip and left leg States pain moves between hips and legs depending on positioning Plans to ambulate 4 times in the glass today Not ready for dc today but hopeful for tomorrow Denies chest pain, SOB, abdominal pain, N/V/D Review of Systems Review of Systems: All systems reviewed & are unremarkable except as noted in Subjective Physical Exam Physical Exam: Gen/Psych: WD/WN, sitting up in bed, appears uncomfortable, A&Ox3 HEENT: Normocephalic, atraumatic, conjunctivae pink, sclerae anicteric, mucous membranes moist Lung: Clear to auscultation bilaterally, no wheezes/rales/rhonchi Heart: Regular rate and rhythm, no murmurs/rubs/gallops Extremities: Normal peripheral pulses, no edema Abdomen: Soft, NT, ND, +BS x 4 Skin: Warm and dry, no rash Results & Data Results & Data Vital Signs (Past 12 Hours) Vital Signs Temp Pulse Resp BP Pulse Ox O2 Del Method 06/27/24 06:58 36.5 C 65 18 116/77 98 Room Air Medications Administered Current Inpatient Medications Acetaminophen (Acetaminophen 325 Mg Tab) 650 mg PO QID [facility] Stop: 07/16/24 21:31 Last Admin: 06/27/24 07:04 Dose: 650 mg Amiodarone HCl (Amiodarone 200 Mg Tab) 200 mg PO QAM [facility] Stop: 07/17/24 08:59 Last Admin: 06/27/24 07:01 Dose: 200 mg Amlodipine Besylate (Amlodipine Besylate 5 Mg Tab) 5 mg PO QA [facility] Stop: 07/17/24 08:59 Last Admin: 06/27/24 07:02 Dose: 5 mg Apixaban (Apixaban 5 Mg Tablet) 5 mg PO BID [facility] Stop: 07/17/24 21:59 Last Admin: 06/27/24 07:01 Dose: 5 mg Aspirin (Aspirin 81 Mg Ectab) 81 mg PO QAM [facility] Stop: 07/17/24 08:59 Last Admin: 06/27/24 07:00 Dose: 81 mg Atorvastatin Calcium (Atorvastatin 40 Mg Tab) 40 mg PO HS [facility] Stop: 07/16/24 21:31 Last Admin: 06/26/24 21:11 Dose: 40 mg Cyanocobalamin (Cyanocobalamin (B-12) 500 Mcg Tablet) 1,000 mcg PO QAM [facility] Stop: 07/17/24 08:59 Last Admin: 06/27/24 07:00 Dose: 1,000 mcg Escitalopram Oxalate (Escitalopram Oxalate 20 Mg Tab) 20 mg PO QPM [facility] Stop: 07/16/24 21:31 Last Admin: 06/26/24 21:17 Dose: 20 mg Fluticasone Propionate (Fluticasone Propionate Na Spr 16 Gm Btl) 2 sprays NA DAILY [facility] Stop: 07/21/24 14:29 Last Admin: 06/27/24 07:00 Dose: 2 sprays Furosemide (Furosemide 20 Mg Tab) 20 mg PO MoWeFr PRN PRN Reason: edema Stop: 07/16/24 21:31 Gabapentin (Gabapentin 300 Mg Cap) 600 mg PO TID [facility] Stop: 07/21/24 13:59 Last Admin: 06/27/24 07:01 Dose: 600 mg Levothyroxine Sodium (Levothyroxine Sodium 75 Mcg Tablet) 75 mcg PO DAILYBB [facility] Stop: 07/17/24 06:29 Last Admin: 06/27/24 06:15 Dose: 75 mcg Lidocaine (Lidocaine 5% 1 Patch) 1 patch TD QPM [facility] Stop: 07/16/24 21:31 Last Admin: 06/26/24 21:12 Dose: 1 patch Losartan Potassium (Losartan Potassium 50 Mg Tab) 100 mg PO QAM [facility] Stop: 07/17/24 08:59 Last Admin: 06/27/24 07:02 Dose: 100 mg Metoprolol Succinate (Metoprolol Succ 25mg Ext Rel Tab) [facility]: 07/17/24 08:59 Last Admin: 06/27/24 07:02 Dose: 25 mg Miscellaneous (Remove Lidoderm Patch) 1 each N/A DAILY [facility] Stop: 07/17/24 08:59 Last Admin: 06/27/24 07:02 Dose: 1 each Morphine Sulfate (Morphine Sulfate 4 Mg/Ml 1 Ml Carp\Vial) 4 mg IV Q6 PRN PRN Reason: Severe Pain (Scale 7, 8, 9,10) Stop: 07/01/24 00:00 Last Admin: 06/27/24 08:27 Dose: 4 mg Ondansetron HCl (Ondansetron Inj 2 Mg/Ml 2 Ml Vial) 4 mg IV Q6H PRN PRN Reason: Nausea Stop: 07/16/24 21:31 Oxycodone HCl (Oxycodone Hcl Ir 5 Mg Tab (Immediate Release)) 5 - 10 mg PO Q6 PRN PRN Reason: Mod-Sev Pain (Scale 4-10) Stop: 06/30/24 21:31 Last Admin: 06/27/24 06:15 Dose: 10 mg Pantoprazole Sodium (Pantoprazole 40 Mg Tab) 40 mg PO BID [facility] Stop: 07/16/24 21:44 Last Admin: 06/27/24 07:01 Dose: 40 mg Polyethylene Glycol (Polyethylene (Miralax) 17 Gm Pack) 17 gm PO BID [facility] Stop: 07/22/24 20:59 Last Admin: 06/27/24 07:02 Dose: 17 gm Senna/Docusate Sodium (Docusate Sodium/Senna 50/8.6mg Tab) 2 tab PO QAM [facility] Stop: 07/23/24 08:59 Last Admin: 06/27/24 07:04 Dose: 2 tab Sodium Biphosphate/Sodium Phosphate (Sod Phosphate/Sod Biphosphate Enema 132 Ml Btl) 132 ml MI ONE PRN PRN Reason: if hasn't moved bowel yet Stop: 07/20/24 14:14 Last Admin: 06/20/24 17:21 Dose: 132 ml Tizanidine HCl (Tizanidine Hcl 4 Mg Tablet) 4 mg PO TID [facility] Stop: 07/21/24 13:59 Last Admin: 06/27/24 07:01 Dose: 4 mg Vitamin D (Cholecalciferol 25 Mcg (1000 Units) Tab) 25 mcg PO QAM [facility] Stop: 07/17/24 08:59 Last Admin: 06/27/24 07:00 Dose: 25 mcg
[2024-06-27 15:34] VITALS: O2SAT 93
[2024-06-28 07:03] LABS: Hemoglobin 12.5 g/dl (12.0-16.0); Mean Corpuscular Hemoglobin 30.9 pg (25.0-34.0); Mean Corpuscular Hgb Conc 32.1 g/dL (32.0-36.0); Mean Corpuscular Volume 96.5 fL (80.0-100.0); Mean Platelet Volume 9.2 fL (9.4-12.4); Platelet Count 144 K/uL (130-400); RDW Coefficient of Variation 14.2 % (11.5-14.5); RDW Standard Deviation 50.3 fL (36.4-46.3); Red Blood Count 4.04 M/uL (4.20-5.40)
[2024-06-28 07:21] LABS: BUN Creatinine Ratio 21.3 (10-20); Calcium 8.7 mg/dl (8.6-10.3); Creatinine Clr Calc Pharmacy 54.3 ml/min; Potassium 4.3 mmol/L (3.5-5.1)
[2024-06-28 07:27] VITALS: BP 118/71; RESP 16; TEMP 97.5
[2024-06-28 11:24] VITALS: PULSE 84
--- NOTE | 2024-06-28 11:26 | Discharge Summary ---
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 She reports that she has chronic low back pain but has been experiencing acute worsening of her symptoms since yesterday. She notes that she has severe (7/10) low back pain that radiates into her left buttock with burning pain going down her left leg from hip to ankle. She endorses numbness and tingling of her left leg. She notes that the pain has caused her to not be able to tolerate walking and she has an extremely hard time standing from the seated position. She notes it is excruciating to get off the toilet or out of her chair. She denies incontinence or saddle anesthesia. She denies hip pain. She denies any falls but does not feel strong enough to walk. She reports she saw Dr Tanner in 2021 or 2022 and he advised an MRI which was scheduled and patient cancelled the appointment. Admission Exam Per Admitting Provider General/Psych: WD/WN, sitting up in bed, NAD, conversing easily, euthymic affect Head: normocephalic, atraumatic Eyes: normal inspection, PERRL, conjunctivae pink, anicteric sclerae ENT: external ear and nose normal, oropharynx normal Neck: normal visual inspection, trachea midline, no thyromegaly Respiratory: normal respiratory effort, lungs clear to auscultation, no wheeze/rales/rhonchi, no accessory muscle use Cardiovascular: regular rate and rhythm, no murmur/rub/gallop, no JVD Extremities: no cyanosis or clubbing, normal peripheral pulses, no BLE edema, compression stockings in place Abdomen/GI: normal bowel sounds, soft, nontender, no hepatosplenomegaly Neurologic/MSK: A+Ox3, motor strength 5/5, moves all extremities, pain on palpation of low back and left hip Skin: no rashes, normal color, warm and dry Principal Diagnosis Spinal stenosis of lumbar region with radiculopathy Discharge Exam Gen/Psych: WD, obese, sitting up in bed, NAD, A&Ox3 HEENT: Normocephalic, atraumatic, conjunctivae pink, sclerae anicteric, mucous membranes moist Lung: Clear to auscultation bilaterally, no wheezes/rales/rhonchi Heart: Regular rate and rhythm, no murmurs/rubs/gallops Extremities: Normal peripheral pulses, no edema Abdomen: Soft, NT, ND, +BS x 4 Skin: Warm and dry, no rash Discharge Data Allergies Allergy/AdvReac Type Severity Reaction Status Date / Time celecoxib Allergy Intermediate Hives Verified 06/16/24 16:47 latex Allergy Intermediate RASH Verified 06/16/24 16:47 lisinopril AdvReac Intermediate Cough Verified 06/16/24 16:47 Consultations 06/16/24 17:57 ED Decision to Admit Stat 06/16/24 21:32 Consult Orthopedic Spine Surgery Routine 06/17/24 10:06 Consult Pain Management Routine Ordered Studies Hip/Pelvis X-Ray 06/16/24 14:32 XR hip LT 2V w pelvis CLINICAL HISTORY: l hip pain COMPARISON: None FINDINGS: AP pelvis and 2 additional views of the left hip demonstrate mild to moderate bilaterally symmetrical osteoarthritis. There is also some arthritic changes in the SI joints manifested by marginal sclerosis and small inferior osteophytes. This is more pronounced in the left SI joint than the right. There is no evidence of a left hip fracture or dislocation. There is no periarticular calcification. There is marginal osteophytes. There is no flattening or sclerosis of the femoral head. The patient is status post multilevel lumbar laminectomy and fusion. IMPRESSION: Moderate bilateral osteoarthritis of the hips. Bilateral arthritic changes in the SI joints left greater than right. ACT 112: Negative or not required by law. Electronically signed by: Agustina Castro M.D. 06/16/2024 3:[address] 06/16/24 14:32 CT OF THE LUMBAR SPINE CLINICAL HISTORY: Low back pain radiating to left leg. COMPARISON STUDY: Lumbar spine CT October 29, 2021. CT of the abdomen and pelvis February 22, 2022. TECHNIQUE: Helical axial images of the lumbar spine were obtained. Sagittal and coronal reconstructions were viewed. Automated exposure control was utilized for the study. A dose lowering technique was utilized adhering to the principles of ALARA. FINDINGS: For purposes of numbering on this exam, the L5-S1 disc space is assigned to axial image 275 of 481. There are stable postoperative findings consistent with L4-S1 decompression and fusion. Interbody spacers at the L4-L5 and L5-S1 levels are noted. Hardware is intact. There are no lumbar spine fractures. No osseous lesions are identified by CT. Paravertebral soft tissues are unremarkable. Central canal and neural foramen are suboptimally assessed given CT technique and artifact related to hardware. CT evidence for severe central canal stenosis. There is mild to moderate multilevel neural foraminal stenosis. IMPRESSION: 1. No acute lumbar spine fracture or subluxation. 2. Status post L4-S1 decompression and fusion. Hardware intact. Stable postoperative findings. 3. Suboptimal evaluation of the central canal and neural foramen, as described above. No CT evidence for severe central canal stenosis. Mild to moderate multilevel neural foraminal stenosis. ACT 112: Negative or not required by law. Electronically signed by: Nav Jurado M.D. 06/16/2024 3:06 PM Chest X-Ray 06/16/24 16:51 EXAM: XR chest 1V portable CLINICAL HISTORY: EKG TECHNIQUE: An X-ray image of the chest is obtained in AP projection. COMPARISON: X-ray 11/06/2023 FINDINGS: Pulmonary Parenchyma: Unchanged bilateral prominent pulmonary vasculature. No evidence of consolidation, collapse, or focal opacities. No pulmonary nodules are identified. No evidence of pleural effusion or pleural thickening. Heart and Mediastinum: Mild cardiomegaly masking the left lower zone. No mediastinal widening or masses. No hilar or mediastinal lymphadenopathy. A pacemaker is noted, with pacemaker leads in satisfactory position. Cardiac monitoring electrodes. Bony Thorax: Bony thorax appears intact without fractures or deformities. Soft Tissues: Soft tissues overlying the chest wall are unremarkable. IMPRESSION: 1. Unchanged pulmonary congestion and mild cardiomegaly. 2. No acute cardiopulmonary abnormalities are identified. 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 Spinal stenosis of lumbar region with radiculopathy s/p L4-S1 decompression and fusion Patient presented to the ED on 06/16 with acute worsening of chronic back pain that was severe and radiated into her buttock with burning pain down her legs Lumbar spine CT revealed no fracture or subluxation; hardware from fusion intact; mild to moderate multilevel neural foraminal stenosis Hip and pelvis xray revealed moderate bilateral osteoarthritis of hips Ortho evaluated patient on 06/17 and recommended pain management consultation and outpatient follow up with them 2-4 weeks from discharge Pain management evaluated patient on 06/17 and 06/21 and recommended outpatient bilateral SI joint injections for diagnosis/therapy but noted patient will need to hold Eliquis for 72 hours prior to the procedure -Medication recommendations were to continue gabapentin (increased to 600mg tid), tizanidine 4mg tid (added, switched from baclofen initially), add lidocaine patches, medrol dosepack completed, continue oxycodone PRN Ambulatory dysfunction Secondary to back pain as described above Patient worked with PT and OT in the hospital who recommended home health services Patient was approved for [facility] Home Health at discharge By day of discharge, patient was able to ambulate multiple times per day independently with a walker Patient provided with walker with wheels at discharge to replace her rollator Constipation Secondary to use of narcotic pain medications Resolved Continue home bowel regimen PAF, HTN, HFpEF, CAD, HLD Patient follows with Cardiology Dr. Frias every 6 months (last seen 05/24/2024) Cardiac conditions are stable Continue amiodarone and eliquis for A fib Continue amlodipine, baby aspirin, atorvastatin, metoprolol, losartan for HF/CAD/HTN/HLD Hypothyroidism Continue levothyroxine per home dosing Depression Continue escitalopram per home dosing GERD Continue omeprazole per home dosing Venous insufficiency Continue lasix 3x/week per home dosing JALEN Continue CPAP qhs Patient seen in collaboration with Dr Fairbanks. Please see addendum. Home Health Attestation I certify that this patient is under my care and that I, or a physicians surgical physician assistant working with me, had a face to-face encounter that meets the home health [id number] encounter requirements with this patient. The encounter with the patient was in whole, or in part, for the following medical condition, which is the primary reason for home health care (list medical condition): Improved strength and mobility I certify that, based on my findings, the following services are medically necessary home health services: My clinical findings support the need for the above services because: OT Assess ADL Status and Restore Function w ADLs PT Assessment for Endurance / Balance / Strength PT Eval for Safety and Mobility PT Eval for Safety, Gait Training, Assistive Devices PT Gait and Balance Training, Strengthening and Safety Further, I certify that my clinical findings support that this patient is homebound (i.e. absences from home require considerable and taxing effort and are for medical reasons or jain services or infrequently or of short duration when for other reasons) because: Certification for Home Health Services: Based on the above findings, I certify that this patient is confined to the home and needs intermittent alf care, physical therapy and/or speech therapy or continues to need occupational therapy. The patient is under my care, and I have initiated the establishment of the plan of care. This patient will be followed by a physician who will periodically review the plan of care. Total Time Total Time Spent Total Time Spent (In Minutes): I spent a total of 35 minutes coordinating, documenting and providing care for this patient excluding time spent in the performance of separately billed services or time spent by another provider/QHP. Discharge Plan Discharge Items Patient Disposition: Home - Home Health Services Reason For Visit: BACK PAIN Discharge Diagnosis: Spinal stenosis of lumbar region with radiculopathy Condition on Discharge: Good Activity: Resume your previous activity Non-emergency contact: Primary Care Provider and Pain Management Call non-emergency contact if: you have any medication questions, your symptoms worsen, your pain is concerning for you and you have a fever Follow-up/Referrals: Ada Rayo PA-C [Physician Information Technology Teacher] - Denys Lagos PA-C [Physician Information Technology Teacher] - Naveed Peters MD [Primary Care Provider] - 07/04/24 1:00 pm (Date & Time 07/04/2024 1:00 PM Provider: Naveed Peters MD [facility] [place] *This is a telehealth appointment* ) Diet: Heart Healthy Addtl Attending Provider Instructions: You were admitted to the hospital for back pain and underwent a lumbar spine CT that showed lumbar spine stenosis as well as an x-ray of your hips that showed osteoarthritis in both hips. You were evaluated by Orthopedics who recommended that you see Pain Management for possible joint injection. You were seen by Pain Management who made changes to your medication regimen and are planning to do outpatient joint injections in both of your hips. In order to do this, you will need to hold Eliquis for 72 hours prior to the procedure. You were also evalu ated by Physical Therapy and Occupational Therapy while you were hospitalized who recommended you get discharged with home health. You were approved for [facility] Home Health who will be coming to assist you in your home. A script was provided for you to get a walker without wheels. MEDICATION CHANGES: -Gabapentin increased to 600mg three times per day -Tizanidine 4mg three times per day was added -Lidocaine patches once per day were added SUMMARY OF TEST RESULTS: See above PENDING TEST RESULTS: None RECOMMENDATIONS FOR FOLLOW-UP: -Please follow up with your PCP after being hospitalized - you will be scheduled for a telehealth appointment as requested -Pain management will be calling you to see up your appointment for your injections - be sure to follow their instructions about holding your Eliquis -You will also be scheduled for a follow up appointment with Ortho Spine Surgery in 2-4 weeks OTHER INSTRUCTIONS: Seek medical attention if you have: * temperature above 101 * chest pain or trouble breathing * abdominal pain, nausea, vomiting * diarrhea, dark stools or bloody stools * any unanswered questions or concerns Call 911 if symptoms are severe. It has been a pleasure taking care of you. Please take care of yourself. If you have any questions regarding your recent hospitalization please contact [facility] and request Pradeep Vences @ [phone]. Pending Studies at Discharge: No Stand-Alone Forms: My [facility], Smoking Cessation Medications and DC Order Prescriptions: New tizanidine 4 mg Tablet 4 mg PO TID 30 Days Qty: 90 0RF lidocaine 5 % Adhesive Patch,Medicated 1 patch transdermal DAILY Qty: 10 0RF Rx Instructions: Apply for 12 hours and then remove for 12 hours. gabapentin 300 mg Capsule 600 mg PO TID 30 Days Qty: 180 0RF Continued aspirin [Vonda Low Dose Aspirin] 81 mg Tablet,Delayed Release (Dr/Ec) 81 mg PO QAM cholecalciferol (vitamin D3) 1,000 unit Capsule 1,000 units PO QAM cyanocobalamin (vitamin B-12) 1,000 mcg Tablet, Sublingual 1,000 mcg SUBLINGUAL QAM losartan 100 mg Tablet 100 mg PO QAM atorvastatin [Lipitor] 40 mg Tablet 40 mg PO HS amiodarone 200 mg tablet 200 mg PO QAM metoprolol succinate 25 mg tablet extended release 24 hr 25 mg PO QAM escitalopram oxalate 20 mg tablet 20 mg PO QPM Eliquis 5 mg Tablet 5 mg PO BID Qty: 60 0RF sennosides-docusate sodium [Senokot-S] 8.6-50 mg Tablet 1 tab PO QAM PRN (Reason: constipation) Qty: 30 0RF omeprazole 20 mg capsule,delayed release(DR/EC) 40 mg PO AMHS Qty: 30 0RF acetaminophen 325 mg Tablet 650 mg PO Q4H PRN (Reason: pain) Qty: 30 0RF meclizine 25 mg Tablet 25 mg PO TID Qty: 30 0RF diclofenac sodium [Voltaren Arthritis Pain] 1 % Gel 1 g EXT TID Qty: 30 0RF fluticasone propionate 50 mcg/actuation [place],Suspension 2 spray INTRANASAL DAILY PRN (Reason: Congestion) amlodipine 5 mg tablet 5 mg PO QAM levothyroxine 75 mcg tablet 75 mcg PO DAILYBB oxycodone 5 mg tablet 7.5 mg PO BID PRN (Reason: Severe Pain (Scale Score 7-10)) Wegovy 0.5 mg/0.5 mL pen injector 0.5 mg subcut WK Rx Instructions: Thursday furosemide [Lasix] 20 mg tablet 20 mg PO 3XWK PRN (Reason: edema) Rx Instructions: Sun/Tues/Thurs Discontinued gabapentin 100 mg capsule 200 mg PO TID Discharge Orders: Discharge Order (Routine); Ordered 06/28/24 Ordered By: Sylvia Luz Admission Data Admit Date/Time: 06/16/24 20:13 Attending Provider: Nick Fairbanks Admit Provider: Misael Ward Primary Care Provider: Naveed Peters Other Providers: Misael Ward; Gee Tanner; Donaldo Palma; Faviola Dean; James Morgan; Raúl Steve; Ada Rayo; IRB Approved Study,Megan; Philipp Arrington; [facility]
--- NOTE | 2024-06-28 11:53 | Discharge Summary ---
<Statement entered by Nick Fairbanks DO - 06/28/24 12:59> I have seen and examined the patient and have discussed the case with the advance practice provider. I have reviewed the advanced practitioner's documentation, and I agree with, and take responsibility for that plan of care. I spent a total of 12 minutes coordinating, documenting, and providing care for this patient excluding time spent by another provider/QHP. Patient reported he had a little bit of a flare of low back pain from being a little bit more active than cleaning up in the bathroom this morning. Is improving with her medications. Discussed discharge plans as outlined below Discharge Summary Date of Service June 28, 2024 Principal Dx & Hospital Course #1 = Principal Diagnosis (1) Spinal stenosis of lumbar region with radiculopathy: (2) H/O lumbosacral spine surgery: (3) Ambulatory dysfunction: (4) Paroxysmal A-fib: (5) HTN (hypertension): (6) (HFpEF) heart failure with preserved ejection fraction: (7) CAD (coronary artery disease): (8) HLD (hyperlipidemia): (9) Hypothyroidism: (10) Depression: (11) GERD (gastroesophageal reflux disease): (12) JALEN (obstructive sleep apnea): Plan 73 year old female with PMH significant for paroxysmal A fib, HTN, HFpEF, CAD, 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 Spinal stenosis of lumbar region with radiculopathy s/p L4-S1 decompression and fusion Patient presented to the ED on 06/16 with acute worsening of chronic back pain that was severe and radiated into her buttock with burning pain down her legs Lumbar spine CT revealed no fracture or subluxation; hardware from fusion intact; mild to moderate multilevel neural foraminal stenosis Hip and pelvis xray revealed moderate bilateral osteoarthritis of hips Ortho evaluated patient on 06/17 and recommended pain management consultation and outpatient follow up with them 2-4 weeks from discharge Pain management evaluated patient on 06/17 and 06/21 and recommended outpatient bilateral SI joint injections for diagnosis/therapy but noted patient will need to hold Eliquis for 72 hours prior to the procedure -Medication recommendations were to continue gabapentin (increased to 600mg tid), tizanidine 4mg tid (added, switched from baclofen initially), add lidocaine patches, medrol dosepack was completed, continue oxycodone PRN Ambulatory dysfunction Secondary to back pain as described above Patient worked with PT and OT in the hospital who recommended home health services Patient was approved for [facility] Home Health at discharge By day of discharge, patient was able to ambulate multiple times per day independently with a walker Patient provided with walker with wheels at discharge to use in place of her rollator Constipation Secondary to use of narcotic pain medications Resolved Continue home bowel regimen PAF, HTN, HFpEF, CAD, HLD Patient follows with Cardiology Dr. Frias every 6 months (last seen 05/24/2024) Cardiac conditions are stable Continue amiodarone and eliquis for A fib Continue amlodipine, baby aspirin, atorvastatin, metoprolol, losartan for HF/CAD/HTN/HLD Hypothyroidism Continue levothyroxine per home dosing Depression Continue escitalopram per home dosing GERD Continue omeprazole per home dosing Venous insufficiency Continue lasix 3x/week per home dosing JALEN Continue CPAP qhs Patient seen in collaboration with Dr Fairbanks. Please see addendum. Notes For Next Care Provider 73 year old female with significant PMH who presented to the ED on 06/16 for acute worsening of chronic back pain. Imaging revealed lumbar spinal stenosis and bilateral hip osteoarthritis. Patient was evaluated by Ortho and Pain Management as detailed above. Patient will be set up for outpatient SI injections with Pain Management. She needs to hold Eliquis for 72 hours prior to this procedure. Pain Management made recommendations for pain medications as detailed below. Ortho will follow up with patient as well in 2-4 weeks. Medication Changes From Visit -Gabapentin increased to 600mg tid -Tizanidine 4mg three tid was added -Lidocaine patches once per day were added Admission HPI Per Admitting Provider 73 year old female with PMH significant for paroxysmal A fib, HTN, HFpEF, CAD, stress induced HOGSHEAD HOOPER, tachy-jess syndrome s/p dual chamber pacemaker (2019), history of PE, venous insufficiency, CKD III, HLD, hypothyroidism, JALNE on CPAP, GERD, MDD, and degeneration of intervertebral disc of lumbar region s/p L4-S1 decompression and fusion with Dr Tanner in 2011 or 2012 who presents to the ED today with low back pain. She reports that she has chronic low back pain but has been experiencing acute worsening of her symptoms since yesterday. She notes that she has severe (7/10) low back pain that radiates into her left buttock with burning pain going down her left leg from hip to ankle. She endorses numbness and tingling of her left leg. She notes that the pain has caused her to not be able to tolerate walking and she has an extremely hard time standing from the seated position. She notes it is excruciating to get off the toilet or out of her chair. She denies incontinence or saddle anesthesia. She denies hip pain. She denies any falls but does not feel strong enough to walk. She reports she saw Dr Tanner in 2021 or 2022 and he advised an MRI which was scheduled and patient cancelled the appointment. Admission Exam Per Admitting Provider General/Psych: WD/WN, sitting up in bed, NAD, conversing easily, euthymic affect Head: normocephalic, atraumatic Eyes: normal inspection, PERRL, conjunctivae pink, anicteric sclerae ENT: external ear and nose normal, oropharynx normal Neck: normal visual inspection, trachea midline, no thyromegaly Respiratory: normal respiratory effort, lungs clear to auscultation, no wheeze/rales/rhonchi, no accessory muscle use Cardiovascular: regular rate and rhythm, no murmur/rub/gallop, no JVD Extremities: no cyanosis or clubbing, normal peripheral pulses, no BLE edema, compression stockings in place Abdomen/GI: normal bowel sounds, soft, nontender, no hepatosplenomegaly Neurologic/MSK: A+Ox3, motor strength 5/5, moves all extremities, pain on palpation of low back and left hip Skin: no rashes, normal color, warm and dry Discharge Exam Gen/Psych: WD, obese, sitting up in bed, NAD, A&Ox3 HEENT: Normocephalic, atraumatic, conjunctivae pink, sclerae anicteric, mucous membranes moist Lung: Clear to auscultation bilaterally, no wheezes/rales/rhonchi Heart: Regular rate and rhythm, no murmurs/rubs/gallops Extremities: Normal peripheral pulses, no edema Abdomen: Soft, NT, ND, +BS x 4 Skin: Warm and dry, no rash Updated Medication List Medication Instructions Recorded Confirmed Type aspirin 81 mg tablet,delayed 81 mg PO QAM 10/22/17 06/16/24 History release (Vonda Low Dose Aspirin) cholecalciferol (vitamin D3) 25 1,000 units PO QAM 10/22/17 06/16/24 History mcg (1,000 unit) capsule cyanocobalamin (vitamin B-12) 1,000 mcg sublingual QAM 10/22/17 06/16/24 History 1,000 mcg sublingual tablet losartan 100 mg tablet 100 mg PO QAM 10/22/17 06/16/24 History amiodarone 200 mg tablet 200 mg PO QAM 12/02/19 06/16/24 History atorvastatin 40 mg tablet (Lipitor) 40 mg PO HS 12/02/19 06/16/24 History metoprolol succinate 25 mg 25 mg PO QAM 12/02/19 06/16/24 History tablet,extended release 24 hr escitalopram oxalate 20 mg tablet 20 mg PO QPM 07/12/20 06/16/24 History fluticasone propionate 50 2 spray intranasal DAILY PRN 05/19/21 06/16/24 History mcg/actuation nasal Congestion spray,suspension apixaban 5 mg tablet (Eliquis) 5 mg PO BID #60 tabs 09/10/21 06/16/24 Rx omeprazole 20 mg capsule,delayed 40 mg (2 x 20 mg) PO AMHS #30 caps 09/10/21 06/16/24 Rx release sennosides 8.6 mg-docusate sodium 1 tab PO QAM PRN constipation #30 09/10/21 06/16/24 Rx 50 mg tablet (Senokot-S) tabs acetaminophen 325 mg tablet 650 mg (2 x 325 mg) PO Q4H PRN 10/31/21 06/16/24 Rx pain #30 tabs diclofenac sodium 1 % topical gel 1 g EXT TID #30 grams 04/03/22 06/16/24 Rx (Voltaren Arthritis Pain) meclizine 25 mg tablet 25 mg PO TID #30 tabs 04/03/22 06/16/24 Rx amlodipine 5 mg tablet 5 mg PO QAM 06/16/24 06/16/24 History furosemide 20 mg tablet (Lasix) 20 mg PO 3XWK PRN edema 06/16/24 06/16/24 History levothyroxine 75 mcg tablet 75 mcg PO DAILYBB 06/16/24 06/16/24 History oxycodone 5 mg tablet 7.5 mg PO BID PRN Severe Pain 06/16/24 06/16/24 History (Scale Score 7-10) semaglutide (weight loss) 0.5 0.5 mg subcut WK 06/16/24 06/16/24 History mg/0.5 mL subcutaneous pen injector (Wegovy) gabapentin 300 mg capsule 600 mg (2 x 300 mg) PO TID 30 days 06/28/24 Rx #180 caps lidocaine 5 % topical patch 1 patch transdermal DAILY 0 days 06/28/24 Rx #10 ea tizanidine 4 mg tablet 4 mg PO TID 30 days #90 tabs 06/28/24 Rx Hospital Stay Data Consultations 06/16/24 17:57 ED Decision to Admit Stat 06/16/24 21:32 Consult Orthopedic Spine Surgery Routine 06/17/24 10:06 Consult Pain Management Routine Diagnostic Imagining Performed Hip/Pelvis X-Ray 06/16/24 14:32 XR hip LT 2V w pelvis CLINICAL HISTORY: l hip pain COMPARISON: None FINDINGS: AP pelvis and 2 additional views of the left hip demonstrate mild to moderate bilaterally symmetrical osteoarthritis. There is also some arthritic changes in the SI joints manifested by marginal sclerosis and small inferior osteophytes. This is more pronounced in the left SI joint than the right. There is no evidence of a left hip fracture or dislocation. There is no periarticular calcification. There is marginal osteophytes. There is no flattening or sclerosis of the femoral head. The patient is status post multilevel lumbar laminectomy and fusion. IMPRESSION: Moderate bilateral osteoarthritis of the hips. Bilateral arthritic changes in the SI joints left greater than right. ACT 112: Negative or not required by law. Electronically signed by: Agustina Castro M.D. 06/16/2024 3:[address] 06/16/24 14:32 CT OF THE LUMBAR SPINE CLINICAL HISTORY: Low back pain radiating to left leg. COMPARISON STUDY: Lumbar spine CT October 29, 2021. CT of the abdomen and pelvis February 22, 2022. TECHNIQUE: Helical axial images of the lumbar spine were obtained. Sagittal and coronal reconstructions were viewed. Automated exposure control was utilized for the study. A dose lowering technique was utilized adhering to the principles of ALARA. FINDINGS: For purposes of numbering on this exam, the L5-S1 disc space is assigned to axial image 275 of 481. There are stable postoperative findings consistent with L4-S1 decompression and fusion. Interbody spacers at the L4-L5 and L5-S1 levels are noted. Hardware is intact. There are no lumbar spine fractures. No osseous lesions are identified by CT. Paravertebral soft tissues are unremarkable. Central canal and neural foramen are suboptimally assessed given CT technique and artifact related to hardware. CT evidence for severe central canal stenosis. There is mild to moderate multilevel neural foraminal stenosis. IMPRESSION: 1. No acute lumbar spine fracture or subluxation. 2. Status post L4-S1 decompression and fusion. Hardware intact. Stable postoperative findings. 3. Suboptimal evaluation of the central canal and neural foramen, as described above. No CT evidence for severe central canal stenosis. Mild to moderate multilevel neural foraminal stenosis. ACT 112: Negative or not required by law. Electronically signed by: Nav Jurado M.D. 06/16/2024 3:06 PM Chest X-Ray 06/16/24 16:51 EXAM: XR chest 1V portable CLINICAL HISTORY: EKG TECHNIQUE: An X-ray image of the chest is obtained in AP projection. COMPARISON: X-ray 11/06/2023 FINDINGS: Pulmonary Parenchyma: Unchanged bilateral prominent pulmonary vasculature. No evidence of consolidation, collapse, or focal opacities. No pulmonary nodules are identified. No evidence of pleural effusion or pleural thickening. Heart and Mediastinum: Mild cardiomegaly masking the left lower zone. No mediastinal widening or masses. No hilar or mediastinal lymphadenopathy. A pacemaker is noted, with pacemaker leads in satisfactory position. Cardiac monitoring electrodes. Bony Thorax: Bony thorax appears intact without fractures or deformities. Soft Tissues: Soft tissues overlying the chest wall are unremarkable. IMPRESSION: 1. Unchanged pulmonary congestion and mild cardiomegaly. 2. No acute cardiopulmonary abnormalities are identified. Electronically signed by Harpreet Carroll 06-16-2024 6:45 PM Pending Results Patient Have Any Pending Studies at Discharge: No Discharge Instructions Given to Patient (Per Discharging Provider) You were admitted to the hospital for back pain and underwent a lumbar spine CT that showed lumbar spine stenosis as well as an x-ray of your hips that showed osteoarthritis in both hips. You were evaluated by Orthopedics who recommended that you see Pain Management for possible joint injection. You were seen by Pain Management who made changes to your medication regimen and are planning to do outpatient joint injections in both of your hips. In order to do this, you will need to hold Eliquis for 72 hours prior to the procedure. You were also evaluated by Physical Therapy and Occupational Therapy while you were hospitalized who recommended you get discharged with home health. You were approved for [facility] Home Health who will be coming to assist you in your home. A script was provided for you to get a walker without wheels. MEDICATION CHANGES: -Gabapentin increased to 600mg three times per day -Tizanidine 4mg three times per day was added -Lidocaine patches once per day were added SUMMARY OF TEST RESULTS: See above PENDING TEST RESULTS: None RECOMMENDATIONS FOR FOLLOW-UP: -Please follow up with your PCP after being hospitalized - you will be scheduled for a telehealth appointment as requested -Pain management will be calling you to see up your appointment for your injections - be sure to follow their instructions about holding your Eliquis -You will also be scheduled for a follow up appointment with Ortho Spine Surgery in 2-4 weeks OTHER INSTRUCTIONS: Seek medical attention if you have: * temperature above 101 * chest pain or trouble breathing * abdominal pain, nausea, vomiting * diarrhea, dark stools or bloody stools * any unanswered questions or concerns Call 911 if symptoms are severe. It has been a pleasure taking care of you. Please take care of yourself. If you have any questions regarding your recent hospitalization please contact [facility] and request [facility] @ [phone]. Home Health Attestation I certify that this patient is under my care and that I, or a physicians assistant manager working with me, had a face to-face encounter that meets the home health [id number] encounter requirements with this patient. The encounter with the patient was in whole, or in part, for the following medical condition, which is the primary reason for home health care (list medical condition): Improved strength and mobility I certify that, based on my findings, the following services are medically necessary home health services: My clinical findings support the need for the above services because: OT Assess ADL Status and Restore Function w ADLs PT Assessment for Endurance / Balance / Strength PT Eval for Safety and Mobility PT Eval for Safety, Gait Training, Assistive Devices PT Gait and Balance Training, Strengthening and Safety Further, I certify that my clinical findings support that this patient is homebound (i.e. absences from home require considerable and taxing effort and are for medical reasons or hinduism services or infrequently or of short duration when for other reasons) because: Certification for Home Health Services: Based on the above findings, I certify that this patient is confined to the home and needs intermittent retirement care, physical therapy and/or speech therapy or continues to need occupational therapy. The patient is under my care, and I have initiated the establishment of the plan of care. This patient will be followed by a physician who will periodically review the plan of care. Total Time Total Time Spent Total Time Spent (In Minutes): I spent a total of 35 minutes coordinating, documenting and providing care for this patient excluding time spent in the performance of separately billed services or time spent by another provider/QHP.
== END 2024-06-28 12:47 | disposition home health service (06) | DRG 552 ==
LOC: ED 14:00 → SUATTDRO 20:13 → 3E 20:13